=== PATIENT | female | born 1950 | race Caucasian/White ===

== ENCOUNTER 2019-10-29 21:19 | Inpatient (IN) | payer MEDICARE, OTHER, SELFPAY ==
--- NOTE | 2019-10-29 21:05 | HP.PCM_ITS ---
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 The patient denies chest pain or shortness of breath at present time and states she was not exerting herself more than usual the last couple days. Onset of dizziness began yesterday and has progressed since. Initial blood pressure in the emergency room at outside hospital was 190/120 with a heart rate of 111 however, her initial laboratory results were unremarkable including a negative troponin. EKG was performed and reported to me as ischemic changes that were new from previous EKG. She was therefore transported to our facility with the request for evaluation for a heart catheterization. Past Medical History Past Medical History (Chronic Problems): Chronic Problems Hypertension (Chronic) Diabetes (Chronic) CAD (coronary artery disease) (Chronic) Allergies amoxicillin [Amoxicillin] Allergy (Verified 01/27/16 14:41) Hives Beta-Blockers (Beta-Adrenergic Bloc Allergy (Verified 01/27/16 14:41) STOPS MY HEART ciprofloxacin Allergy (Verified 01/27/16 14:41) Hives clarithromycin [From Biaxin] Allergy (Verified 01/27/16 14:41) Hives metformin HCl [From Glucophage] Allergy (Verified 01/27/16 14:41) Anaphylaxis Penicillins Allergy (Verified 01/27/16 14:41) Hives vancomycin Allergy (Verified 01/27/16 14:41) Hives Home Medications: Ambulatory Orders Medication Instructions Recorded Gabapentin [Neurontin] 200 mg PO TIDCM 11/02/13 Hydrocodone Bitart/Apap 5-325 1 tablet PO Q6H PRN PRN 11/02/13 [[place] 5MG-325MG] Isosorbide Mononitrate [Isosorbide 30 mg PO DAILY 11/02/13 Mononitrate ER] Lisinopril [Zestril] 20 mg PO BID 11/02/13 Losartan Potassium [Cozaar] 100 mg PO DAILY 11/02/13 Pravastatin [Pravachol] 40 mg PO DAILY 11/02/13 Quetiapine Fumarate [Seroquel XR] 600 mg PO QHS 11/02/13 Baclofen 10 mg PO PRN PRN 12/03/15 Fluoxetine [Prozac] 60 mg PO DAILY 12/03/15 Insulin Aspart [Novolog Flexpen 8 units SC DINNER 12/03/15 ([facility])] Insulin Aspart [Novolog Flexpen 10 units SC BREAKFAST 12/03/15 ([facility])] Insulin Aspart [Novolog Flexpen 10 units SC LUNCH 12/03/15 ([facility])] Insulin Degludec [Tresiba 36 unit SQ QHS 12/03/15 Flextouch U-100] Oxybutynin Chloride [Ditropan Xl] 10 mg PO DAILY 12/03/15 Rizatriptan Benzoate [Maxalt] 10 mg PO .X1 PRN 12/03/15 Sotalol HCl [Betapace AF (Beta 80 mg PO QHS 12/03/15 [place])] Cephalexin [Keflex] 500 mg PO Q8 #9 capsule 01/30/16 Smoking Status: Former smoker - *Family History Maternal History Items: No pertinent history Review of Systems Constitutional: Reports: Weakness, Fatigue. Denies: Chills, Fever, Weight Change HEENT: Denies: Head Aches, Sinus Congestion, Sinus Drainage Cardiovascular: Denies: Chest Pain, Palpitations Respiratory: Denies: Cough, Shortness of breath at rest, Sputum production Gastrointestinal: Reports: Nausea. Denies: Abdominal Pain, Vomiting Genitourinary: Denies: Dysuria Musculoskeletal: Denies: Joint Pain, Joint Tenderness Skin: Denies: Rash, Wounds Neurological: Denies: Numbness, Tingling, Focal weakness Psychiatric: Denies: Anxiety, Depression, Homicidal Ideations, Suicidal Ideations Hematologic/ Lymphatic: Denies: Easy Bruising, Easy Bleeding VTE Information - Inpt Only VTE Present on Admission: No VTE Mechan Device Prophylaxis: None VTE Pharm Prophylaxis ordered?: Yes Patient Problems: Active and Suspected Problems Acute electrocardiogram changes (Acute) - Physical Exam Vitals/I&O's: Finger Stick Blood Glucose 297 General: Alert, Oriented x3, Cooperative HEENT: Atraumatic, Normocephalic Neck: Supple Lungs: Clear to auscultation, Normal air movement, No rhonchi, No wheeze, No rales Cardiovascular: Regular rate, Normal S1, Normal S2, No murmurs Abdomen: Bowel Sounds Present, Soft, Non Tender Extremities: No edema Skin: No rashes Musculoskeletal: No Tenderness to Palpation of Joints or Extremities Neurological: Cranial nerves II-XII grossly intact, Neuro grossly intact Psych/Mental Status: Normal Affect, Appropriate Assessment/Plan All Active Problems Acute electrocardiogram changes (Acute) History of breast cancer (Resolved) Chronic Problems Hypertension (Chronic) Diabetes (Chronic) CAD (coronary artery disease) (Chronic) Plan 1. Generalized weakness/dizziness/nausea?admit patient to progressive care unit, cycle cardiac markers, consult mixing tank operator due to EKG changes we will start regular cardiac diet for now pending decision by cardiology regarding stress test versus heart catheterization. Will focus on blood pressure management for the time being. we will repeat CBC BMP, coag panel, FLP in a.m. we will order Zofran PRN for nausea as well. 2. EKG changes?I have requested for nurse to obtain copies of previous EKGs for comparison 3. Diabetes?we will cover with sliding scale insulin, obtain A1c to assess diabetic control 4. Hypertension?we will place patient with hydralazine 10 mg IV every 6 hours as needed BP greater than 160/100 to cover as needed need and continue p.o. medications per routine until changed to n.p.o. status. 5. DVT prophylaxis?low molecular weight heparin OBSV E&M: 25834 Initial observation care L2
[2019-10-29 21:06] VITALS: BMI 36.1
[2019-10-29 21:10] VITALS: BP 190/107; PULSE 107; RESP 16; TEMP 36.4; O2SAT 95
--- NOTE | 2019-10-29 21:24 | ECHOD_ITS ---
Reason For Study: S/P DC Procedure This was a 2D Doppler, Color Flow transthoracic echocardiogram. The study was technically difficult. Exam performed portable in patient room. Left Ventricle Normal LV size. Moderate concentric left ventricular hypertrophy. The estimated ejection fraction is 65 %. Left ventricular systolic function is normal. Stage 1 diastolic dysfunction. No regional wall motion abnormalities noted. Right Ventricle Normal RV size. Moderate hypertrophy of the right ventricle. Normal systolic function. Atria Normal left atrium. Normal right atrium. Mitral Valve Normal mitral valve. Tricuspid Valve Normal tricuspid valve. Mild tricuspid valve insufficiency. Pulmonary artery systolic pressure is 20 mmHg. Aortic Valve Trisinus/trileaflet aortic valve. Great Vessels Normal aortic root. The pulmonary artery is normal size. Normal inferior vena cava. Pericardium/Pleural Trivial pericardial effusion. Epicardial fat. MMode/2D Measurements & Calculations LVIDd: 3.9 cm IVSd: 1.5 cm Ao root diam: 3.6 cm LVIDs: 2.2 cm LVPWd: 1.3 cm RVDd: 3.1 cm FS: 43.2 % LAV(MOD-bp): 73.9 ml LVAd ap4: 21.6 cm2 SV(MOD-sp4): 33.4 ml LAV(MOD-bp) Indexed: 34.1 ml/m2 EDV(MOD-sp4): 56.7 ml LAV(MOD-sp2): 87.1 ml EDV(sp4-el): 54.5 ml LAV(MOD-sp4): 60.5 ml LVAs ap4: 11.8 cm2 ESV(MOD-sp4): 23.3 ml ESV(sp4-el): 20.3 ml EF(MOD-sp4): 58.9 % EF(sp4-el): 62.8 % SV(sp4-el): 34.2 ml LA dimension(2D): 4.0 cm LA A4 area: 21.0 cm2 RA A4 area: 16.7 cm2 Time Measurements MV dec time: 0.13 sec Doppler Measurements & Calculations MV E max manoj: 117.1 cm/sec Ao V2 max: 119.3 cm/sec LV V1 max: 103.5 cm/sec Ao max P.7 mmHg LV V1 max P.3 mmHg PA V2 max: 100.0 cm/sec TR max manoj: 205.9 cm/sec TR max P.0 mmHg Interpretation Summary Normal LV size. Moderate concentric left ventricular hypertrophy. The estimated ejection fraction is 65 %. Left ventricular systolic function is normal. Stage 1 diastolic dysfunction. Trivial pericardial effusion. Epicardial fat. Ordering Physician: Lincoln Cline Performed By: Trina Soto, THONG, RVT
--- NOTE | 2019-10-29 21:26 | CON.PCM_ITS ---
Reason for Consult Date of Consultation: 10/29/19 Reason for Consultation: Headache, dizziness and high blood pressure History of Present Illness: The patient is a 69 year old F with a past medical history significant for coronary artery disease, diabetes mellitus, hypertension who presented to the emergency room at an outside hospital with chief complaint of dizziness headache and generalized weakness as well as nausea. She previously follows up with Lenore Fox for her cardiac care. She apparently had a non-ST elevation myocardial infarction over 3 years ago and medical therapy was recommended. She has done well in the interim. She has been compliant with her medications. She denies any fever diaphoresis neck arm or jaw discomfort to suggest angina. At the outside hospital her blood pressure was noted to be approximately 190/120 with a heart rate of 111 and a right bundle branch block. A troponin was done which was negative. A previous EKG from September of this year demonstrated a right bundle branch block. She was transferred here ostensibly to have further ca rdiac work-up. At this particular time she is completely asymptomatic. [] Past Medical History Allergies/Adverse Reactions: Allergies amoxicillin [Amoxicillin] Allergy (Verified 01/27/16 14:41) Hives Beta-Blockers (Beta-Adrenergic Bloc Allergy (Verified 01/27/16 14:41) STOPS MY HEART ciprofloxacin Allergy (Verified 01/27/16 14:41) Hives clarithromycin [From Biaxin] Allergy (Verified 01/27/16 14:41) Hives metformin HCl [From Glucophage] Allergy (Verified 01/27/16 14:41) Anaphylaxis Penicillins Allergy (Verified 01/27/16 14:41) Hives vancomycin Allergy (Verified 01/27/16 14:41) Hives Home Medications: Ambulatory Orders Medication Instructions Recorded Gabapentin [Neurontin] 200 mg PO TIDCM 11/02/13 Hydrocodone Bitart/Apap 5-325 1 tablet PO Q6H PRN PRN 11/02/13 [[place] 5MG-325MG] Isosorbide Mononitrate [Isosorbide 30 mg PO DAILY 11/02/13 Mononitrate ER] Lisinopril [Zestril] 20 mg PO BID 11/02/13 Losartan Potassium [Cozaar] 100 mg PO DAILY 11/02/13 Pravastatin [Pravachol] 40 mg PO DAILY 11/02/13 Quetiapine Fumarate [Seroquel XR] 600 mg PO QHS 11/02/13 Baclofen 10 mg PO PRN PRN 12/03/15 Fluoxetine [Prozac] 60 mg PO DAILY 12/03/15 Insulin Aspart [Novolog Flexpen 8 units SC DINNER 12/03/15 ([facility])] Insulin Aspart [Novolog Flexpen 10 units SC BREAKFAST 12/03/15 ([facility])] Insulin Aspart [Novolog Flexpen 10 units SC LUNCH 12/03/15 ([facility])] Insulin Degludec [Tresiba 36 unit SQ QHS 12/03/15 Flextouch U-100] Oxybutynin Chloride [Ditropan Xl] 10 mg PO DAILY 12/03/15 Rizatriptan Benzoate [Maxalt] 10 mg PO .X1 PRN 12/03/15 Sotalol HCl [Betapace AF (Beta 80 mg PO QHS 12/03/15 [place])] Cephalexin [Keflex] 500 mg PO Q8 #9 capsule 01/30/16 Past Medical History (Chronic Problems): Chronic Problems Hypertension (Chronic) Diabetes (Chronic) CAD (coronary artery disease) (Chronic) Surgical History: mastectomy - *Family History Maternal History Items: No pertinent history Smoking Status: Former smoker Alcohol: None Drugs: None Review of Systems - Review of Systems General: Denies: Fever, Night Sweats, Fatigue HEENT: Denies: Vision Change Cardiovascular: Reports: Dizziness. Denies: Chest Discomfort, Shortness of Breath, Orthopnea, PND, Peripheral Edema, Palpitations, Lightheadedness, Near Syncope, Syncope Respiratory: Denies: Cough, Sputum Production, Hemoptysis Gastrointestinal: Reports: Nausea. Denies: Hematemesis, Hematochezia, Melena Genitourinary: Denies: Dysuria, Hematuria Muscoloskeletal: Denies: Myalgias Skin: Denies: Rash Neurological: Reports: Dizziness Psychiatric: Denies: Anxiety Subjectve: Pleasant lady in no distress Objective: Vital Signs Temp Pulse Resp BP Pulse Ox 97.5 F L 107 H 16 190/107 H 95 10/29/19 21:10 10/29/19 21:10 10/29/19 21:10 10/29/19 21:10 10/29/19 21:10 Oxygen Delivery Method Room Air Weight: 234 lb 2.095 oz Body Mass Index (BMI) 36.1 Finger Stick Blood Glucose 297 General: Awake, Alert, Oriented x 3 HEENT: PERRL, EOMI, Sclera Non Icteric Neck: Supple, Good ROM, No Lymph Node Enlargement Lungs: Clear to auscultation Cardiovascular: Regular Rhythm, Normal S1, Normal S2, No Murmurs, No Rubs, No Gallops Vascular: No Carotid Bruits, Normal Femoral Pulses, Normal Radial Pulses, Normal Dorsalis Pedal Pulse, Normal Posterior Tibial Pulses Abdomen: Bowel Sounds Present, Soft, Non Tender, No HSM, No Organomegaly Extremities: No Cyanosis, No Clubbing, No edema Musculoskeletal: No Erythema Skin: No Rashes Neurological: No Focal Motor or Sensory Deficit Psych/Mental Status: Appropriate Rhythm: EKG: Sinus rhythm with a right bundle branch block ECHO: Stress Test: Cardiac Cath: PCI: CT Surgery: Holter monitor: EPS: PPM: CXR: Chest CT Scan: Assessment/Plan 1. Severe hypertension * The etiology of her severe hypertension is not entirely clear at this particular time. My recommendation is to resume her medications * Continue lisinopril * Discontinue losartan * Add amlodipine 10 mg a day * Obtain echocardiogram to assess her ventricular function * Depending on the findings further recommendations will be made * 2. Coronary artery disease * Her most recent troponin level was noted to be normal. Would follow serial troponin levels * Continue aspirin * Continue statin * 3. Conduction system disorder * Patient appears to have a history of paroxysmal atrial fibrillation but not anticoagulated * Patient is on once a day sotalol * Apparently has intolerance to other beta-blockers. * She has an underlying right bundle branch block and will continue to observe this. * * Thank you for allowing me to participate in the care of your patient. Please don't hesitate to call if any issues arise.
--- NOTE | 2019-10-29 21:32 | EKG12_ITS ---
Test Reason : CP ADMIT Blood Pressure : / mmHG Vent. Rate : 106 BPM Atrial Rate : 106 BPM P-R Int : 224 ms QRS Dur : 132 ms QT Int : 380 ms P-R-T Axes : 090 024 -03 degrees QTc Int : 504 ms Sinus tachycardia with 1st degree A-V block Right bundle branch block Abnormal ECG When compared with ECG of 04-JAN-2003 08:36, CA interval has increased Vent. rate has increased BY 47 BPM Right bundle branch block is now Present Confirmed by MARIA VICTORIA GLASS ([id number]), art editor DELONTE MOORE ([id number]) on 11/02/2019 10:34:54 AM Referred By: DR CARRILLO Confirmed By:MARIA VICTORIA GLASS
[2019-10-29 21:36] VITALS: PULSE 107
[2019-10-29] MEDS: amLODIPine 5 MG Tablet PO (21:53)
[2019-10-29 22:11] LABS: Bedside Glucose 168 mg/dL (70-110)
[2019-10-29 22:45] VITALS: BP 170/92; PULSE 108; RESP 16; TEMP 36.7; O2SAT 95
[2019-10-29 22:50] VITALS: O2SAT 95
[2019-10-29 23:34] VITALS: BP 183/94; PULSE 106
[2019-10-29] MEDS: hydrALAZINE 20 MG/ML Vial 10 MG IV (23:34)
[2019-10-29] MEDS: Acetaminophen 325 MG Tablet 650 MG PO (23:35)
[2019-10-29] MEDS: 0.9% Saline Lock 10 ML Syringe IV (23:35)
[2019-10-30] VITALS (10 sets, daily range): BP systolic 133–178; BP diastolic 62–90; PULSE 55–122; RESP 16–18; TEMP 36.6–37.1; O2SAT 96–100
[2019-10-30 03:57] LABS: Absolute Lymphocyte Count 2.01 X10^3/uL (0.83-4.51); Absolute Neutrophil Count 2.2 X10^3/uL (2.0-7.7); Basophil# 0.08 X10^3/uL; Basophil% 1.5 % (0-1); Eosinophil# 0.38 X10^3/uL; Eosinophils% 7.4 % (0-5); Hemoglobin 14.4 g/dL (12.0-15.0); Lymphocyte # 2.01 X10^3/ul (4.0); Lymphocyte % 38.9 % (19-41); Mean Corp Hgb Conc 32.7 g/dL (32-36); Mean Corpuscular Hgb 28.7 pg (27.0-32.0); Mean Corpuscular Volume 87.6 fL (81-99); Monocyte# 0.48 X10^3/uL; Monocyte% 9.3 % (0-10); NRBC Flagged by Analyzer 0 % (0-5); Neutrophil # 2.21 X10^3/uL (2.7-7.7); Neutrophil % 42.7 % (47-70); Platelet Count 156 K/mm3 (150-450); RBC Distribution Width CV 13.2 % (11.6-14.6); RBC Distribution Width SD 42.1 fl (35.1-43.9); Red Blood Count 5.02 M/mm3 (4.2-5.4); White Blood Count 5.2 K/mm3 (4.4-11.0)
[2019-10-30 05:09] LABS: ALB/GLOB Ratio 0.7 RATIO (0.9-2.4); AST(SGOT) 20 U/L (15-37); Alanine Aminotransfer ALT/SGPT 25 U/L (13-56); Albumin, Serum 3.1 g/dL (3.2-5.0); Alkaline Phosphatase 62 U/L (45-117); Anion Gap 7 (5-15); BUN 11 mg/dL (7-18); BUN/Creat Ratio 11.2 RATIO (10-20); Calcium,Total 8.2 mg/dL (8.5-10.1); Chloride 103 mmol/L (98-107); Cholesterol 224 mg/dL (200); Creatinine, Serum 0.98 mg/dL (0.55-1.02); EST Glomerular Filtration Rate 59 mL/min (>60); Est Glom Filt Rate - Afr Amer 72 mL/min (>60); Estimated Creatinine Clearance 51.94 ml/min; Globulin 4.2 g/dL (2.2-4.2); Glucose 148 mg/dL (74-106); High Density Lipoprotein 45 mg/dL; Potassium 3.6 mmol/L (3.5-5.1); Protein, Total 7.3 g/dL (6.4-8.2); Sodium Level 138 mmol/L (136-145); Triglycerides 125 mg/dL; Very Low Density Lipoprotein 25 mg/dL (5-40)
[2019-10-30 06:31] LABS: Bedside Glucose 169 mg/dL (70-110)
--- NOTE | 2019-10-30 08:01 | PN.CARD_ITS ---
Subjectve: Patient seen and evaluated. Appears to be doing well. Objective: Vital Signs Temp Pulse Resp BP Pulse Ox 98 F 61 18 154/62 H 98 10/30/19 04:30 10/30/19 07:00 10/30/19 04:30 10/30/19 04:30 10/30/19 07:15 Oxygen Flow Rate (L/min) 2 Oxygen Delivery Method Nasal Cannula Weight: 234 lb 2.095 oz Body Mass Index (BMI) 36.1 Finger Stick Blood Glucose 297 Intake and Output for Last 24 Hours 10/28/19 10/29/19 10/30/19 23:59 23:59 23:59 Intake Total 100 / 100 Balance 100 / 100 General: Awake, Alert, Oriented x 3 HEENT: PERRL, EOMI, Sclera Non Icteric Neck: Supple, Good ROM, No Lymph Node Enlargement Lungs: Clear to auscultation Cardiovascular: Regular Rhythm, Normal S1, Normal S2, No Murmurs, No Rubs, No Gallops Vascular: No Carotid Bruits, Normal Femoral Pulses, Normal Radial Pulses, Normal Dorsalis Pedal Pulse, Normal Posterior Tibial Pulses Abdomen: Bowel Sounds Present, Soft, Non Tender, No HSM, No Organomegaly Extremities: No Cyanosis, No Clubbing, No edema Musculoskeletal: No Erythema Skin: No Rashes Lymphatic: No Lymph Node Enlargement Neurological: No Focal Motor or Sensory Deficit Psych/Mental Status: Appropriate 10/29/19 22:02: Troponin I < 0.015 10/30/19 01:00: Troponin I < 0.015 10/30/19 03:40: WBC 5.2, RBC 5.02, Hgb 14.4, Hct 44.0, MCV 87.6, MCH 28.7, MCHC 32.7, Plt Count 156, MPV 11.0, Immature Gran % (Auto) 0.200, Neut % (Auto) 42.7 L, Lymph % (Auto) 38.9, Hendricks % (Auto) 9.3, Eos % (Auto) 7.4 H, Baso % (Auto) 1.5 H, Absolute Neuts (auto) 2.2, Nucleated RBC % 0 10/30/19 03:40: PT 13.0, INR 1.0 10/30/19 03:40: Sodium 138, Potassium 3.6, Chloride 103, Carbon Dioxide 28.0, Anion Gap 7, BUN 11, Creatinine 0.98, Est GFR (MDRD) Af Amer 72, Est GFR (MDRD) Non-Af 59 L, BUN/Creatinine Ratio 11.2, Glucose 148 H, Calcium 8.2 L, Total Bilirubin 0.60, Triglycerides 125, Cholesterol 224 H, LDL Cholesterol 154 H, VLDL Cholesterol 25, HDL Cholesterol 45 10/30/19 03:40: Troponin I < 0.015 Rhythm: EKG: ECHO: Stress Test: Cardiac Cath: PCI: CT Surgery: Holter monitor: EPS: PPM: CXR: Chest CT Scan: Medical Necessity - Tobacco Use Smoking Status: Former smoker Assessment/Plan 1. Severe hypertension * The etiology of her severe hypertension is not entirely clear at this particular time. My recommendation is to resume her medications * Continue lisinopril * Discontinue losartan * Add amlodipine 10 mg a day * Obtain echocardiogram to assess her ventricular function * Depending on the findings further recommendations will be made * 2. Coronary artery disease * Her most recent troponin level was noted to be normal. Would follow serial troponin levels * Continue aspirin * Continue statin * 3. Conduction system disorder * Patient appears to have a history of paroxysmal atrial fibrillation but not anticoagulated * Patient is on once a day sotalol, and I am not sure why. Will DC the above for now * Apparently has intolerance to other beta-blockers. * She has an underlying right bundle branch block and will continue to observe this. * * Thank you for allowing me to participate in the care of your patient. Please don't hesitate to call if any issues arise.
[2019-10-30] MEDS: Aspirin E.C. 325 MG Tablet PO (09:34)
[2019-10-30] MEDS: amLODIPine 10 MG Tablet PO (09:34)
[2019-10-30] MEDS: Enoxaparin 40 MG/0.4 ML Syringe SC (09:34)
[2019-10-30] MEDS: Lisinopril 20 MG Tablet PO (09:37)
--- NOTE | 2019-10-30 10:44 | CASEMGMT ---
MICHAEL MILNER assessment: Face to Face with patient for initial transition planning/care coordination assessment. MICHAEL MILNER introduced self and role at [facility], pt voices understanding and consents to assessment at this time. Pt is sitting up in bed in no distress at this time. Pt is A/Ox4 at this time and answers all questions appropriately at this time. Care providers, pharmacy, and demographics verified at this time. Presentation: Direct admit from [facility]ock for Hypertensive urgency, EKG changes Admitting dx: Hypertensive urgency, EKG changes PCP: Loyda Specialists: Xochilt King radiographer mammographer [facility]erred [facility]acy: [facility] Insurance: [facility] A/B, AeR Prescription Benefit: SilverRx Living Will/HPOA: Pt states that her daughter, Marylou Huerta, is POA but she is unsure if it's for financial, healthcare, or both. Pt is aware that there is nothing on file at [facility] at this time. LNOK: Marylou Huerta, daughter Living Arrangements: Pt states lives alone on main level of 2 story home and states no concerns at home at this time. Pt states is independent with ADL's. Transportation: Pt states drives self and states no transportation concerns at this time. DME/HHC: Pt states has a cane, walker, and 2 liters home oxygen at bedtime. Pt states no need for any further DME. Pt states no hx of HHC or SNF in the past. Pt states no concerns with going home at time of discharge. Pt states is retired. Pt states quit smoking 6.5yrs ago and does not drink ETOH. Pt states no further concerns/needs at this time. CM to follow for any further discharge planning/needs. Advised pt to ask for CM if any further questions/concerns/needs arise, voices understanding. Pt Goal: Home Plan[place] MICHAEL MILNER
--- NOTE | 2019-10-30 10:44 | NURSING ---
Spoke with patient's pharmacy[facility] [place]. Pharmacy did not have complete list of medications. Call placed and left on patient's PCP, Dr. Scales, nurse line for a call back.
[2019-10-30 11:46] LABS: Bedside Glucose 273 mg/dL (70-110)
[2019-10-30] MEDS: 0.9% Saline Lock 10 ML Syringe IV ×2 (11:52→12:57)
[2019-10-30] MEDS: Ondansetron 4 MG/2 ML Vial IV (11:52)
[2019-10-30] MEDS: Insulin Lispro 100 UNIT/ML INSULN.PEN SC ×2 (12:52→17:58)
[2019-10-30] MEDS: Acetaminophen 325 MG Tablet 650 MG PO (12:52)
[2019-10-30] MEDS: hydrALAZINE 20 MG/ML Vial 10 MG IV (12:54)
--- NOTE | 2019-10-30 16:45 | DCINST_ITS ---
- Discharge Diagnoses Current Active Problems: Current Active and Chronic Problems Hypertension (Chronic) Diabetes (Chronic) CAD (coronary artery disease) (Chronic) Acute electrocardiogram changes (Acute) You will use the following diet at home:: Calorie/Carbohydrate Controlled (specify 1200, 1400, etc) - 1800 davey Your food should be the consistency of: Regular Your liquids should be the consistency of: Regular/Thin Discharge Activity: Return to Normal Activity Weight Bearing Status: Full weight bearing Additional Instructions: TAKE A 20 MG DOSE OF LISINOPRIL TONITE, THEN START ON LISINOPRIL 40 MG DAILY (ONCE A DAY) ON 10/31/19 Allergies/Adverse Reactions: Allergies amoxicillin [Amoxicillin] Allergy (Verified 01/27/16 14:41) Hives Beta-Blockers (Beta-Adrenergic Bloc Allergy (Verified 01/27/16 14:41) STOPS MY HEART ciprofloxacin Allergy (Verified 01/27/16 14:41) Hives clarithromycin [From Biaxin] Allergy (Verified 01/27/16 14:41) Hives metformin HCl [From Glucophage] Allergy (Verified 01/27/16 14:41) Anaphylaxis Penicillins Allergy (Verified 01/27/16 14:41) Hives vancomycin Allergy (Verified 01/27/16 14:41) Hives Medications to take at Discharge Hydrocodone Bitart/Apap 5-325 [[place] 5/325] 1 tablet PO TID PRN PRN 11/02/13 Pravastatin [Pravachol] 80 mg PO DAILY 11/02/13 Amlodipine [Norvasc] 10 mg PO DAILY #30 tab 10/30/19 Aspirin [Aspirin EC] 81 mg PO DAILY #1 tablet. 10/30/19 Fluoxetine [Prozac] 60 mg PO DAILY #1 capsule 10/30/19 Insulin Human 70/30 [Novolog Mix 70-30 Flexpen Syrn] 40 units SUBCUT DAILYCM 10/30/19 Lisinopril [Zestril] 40 mg PO DAILY #1 tablet 10/30/19 Lisinopril [Zestril] 40 mg PO DAILY #1 tablet 10/30/19 Loperamide [Imodium] 2 mg PO Q4H PRN PRN 10/30/19 Meloxicam 7.5 mg PO DAILY PRN 10/30/19 Turmeric/Turmeric Root Extract [Turmeric 500 mg Capsule] 500 mg PO DAILY 10/30/19 The following prescriptions were given: Aspirin [Aspirin EC] 81 mg PO DAILY #1 tablet. Amlodipine [Norvasc] 10 mg PO DAILY #30 tab Transmission Status: Pending to [id number] Fluoxetine [Prozac] 60 mg PO DAILY #1 capsule Lisinopril [Zestril] 40 mg PO DAILY #1 tablet Lisinopril [Zestril] 40 mg PO DAILY #1 tablet Primary Care Physician: Arnold Scales DO [Primary Care Provider] - Please follow up with your Primary Care Physician in: 5-7 days Test Results: Test results from this visit will be discussed in further detail at your follow- up appointment, if applicable. Please Follow Up With: your electrical mechanical technician When: in 2 weeks
[2019-10-30 18:06] LABS: Bedside Glucose 201 mg/dL (70-110)
--- NOTE | 2019-10-30 18:36 | PCM.DC.SUM ---
Discharge Date and Diagnosis - Problem List Patient Problems: Active and Suspected Problems Acute electrocardiogram changes (Acute) Date of Admission: 10/29/19 Date of Discharge: 10/30/19 - Primary Discharge Diagnosis Acute Problems: Active Problems #1 hypertensive urgency #2 coronary artery disease #3 hyperlipidemia #4 generalized weakness-etiology unclear #5 type 2 diabetes - Secondary Discharge Diagnosis Chronic Problems: Chronic Problems Hypertension (Chronic) Diabetes (Chronic) CAD (coronary artery disease) (Chronic) Hospital Course and Treatment Operations: None Procedures: 2-D Echocardiogram Summary of Care Provided: The patient is a 69 year old F who was admitted to PCU at [facility] after being evaluated at an outside hospital for complaints of weakness and dizziness. Work-up at the outside hospital revealed the patient's blood pressure to be elevated and the outside hospital requested the patient be transferred here for direct admission. There is also concerns of EKG changes. Patient was directly admitted to PCU, she was placed on medications for blood pressure control and she was seen in consultation by cardiology. Per cardiology did not feel the patient warranted a cardiac work-up and did several medication adjustments concerning the patient's home medications. Patient's blood pressure responded to change in her medications. It was not felt that the patient had any significant EKG changes. On 10/30/2019, patient was seen and examined: On examination she appeared in good health and spirits, she does not appear to be in any distress. Vital signs as documented. Skin warm and dry and without overt rashes. Neck without JVD, thyroid appears normal, trachea is midline, neck is supple. Lungs clear, normal air movement was noted. Heart exam notable for regular rhythm, normal sounds and absence of murmurs, rubs or gallops. Abdomen unremarkable and without evidence of organomegaly, masses, or abdominal aortic enlargement, bowel sounds are present in all 4 quadrants, no abdominal tenderness was noted. Extremities nonedematous, no cyanosis was noted, no clubbing was noted. Neuro: Cranial nerves II through XII are grossly intact, no focal motor deficits were noted, sensation to light touch and pinprick is intact, motor exam 5/5 throughout. Psych: Patient is alert and oriented x3, she does not appear anxious or depressed, she does not appear agitated. Patient was felt to be stable for discharge home on 10/30/2019, I had a discussion with the patient's daughter and the patient's daughter was concerned that the patient was on multiple medications and was not taking them correctly, I reviewed the patient's medications prior to discharge and took the patient off several of her medications which would cause sedation and unsteadiness at home. 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 Patient Problems: Active and Suspected Problems Acute electrocardiogram changes (Acute) - Physical Exam Vitals/I&O's: Vital Signs Temp Pulse Resp BP Pulse Ox 97.8 F 87 18 140/73 H 98 10/30/19 15:30 10/30/19 15:30 10/30/19 15:30 10/30/19 15:30 10/30/19 15:30 Oxygen Flow Rate (L/min) 2 Oxygen Delivery Method Room Air Weight: 106.2 kg Body Mass Index (BMI) 36.1 Finger Stick Blood Glucose 297 Intake and Output for Last 24 Hours 10/28/19 10/29/19 10/30/19 23:59 23:59 23:59 Intake Total 100 / 100 360 / 360 Balance 100 / 100 360 / 360 Laboratory Results 10/29/19 21:30: POC Glucose 168 H 10/29/19 22:02: Troponin I < 0.015 10/30/19 01:00: Troponin I < 0.015 10/30/19 03:40: WBC 5.2, RBC 5.02, Hgb 14.4, Hct 44.0, MCV 87.6, MCH 28.7, MCHC 32.7, RDW Std Deviation 42.1, RDW Coeff of Gabbie 13.2, Plt Count 156, MPV 11.0, Immature Gran % (Auto) 0.200, Neut % (Auto) 42.7 L, Lymph % (Auto) 38.9, Hardy % (Auto) 9.3, Eos % (Auto) 7.4 H, Baso % (Auto) 1.5 H, Absolute Neuts (auto) 2.2, Absolute Lymphs (auto) 2.01, Nucleated RBC % 0 10/30/19 03:40: PT 13.0, INR 1.0 10/30/19 03:40: Sodium 138, Potassium 3.6, Chloride 103, Carbon Dioxide 28.0, Anion Gap 7, BUN 11, Creatinine 0.98, Estim Creat Clear Calc 51.94, Est GFR (MDRD) Af Amer 72, Est GFR (MDRD) Non-Af 59 L, BUN/Creatinine Ratio 11.2, Glucose 148 H, Calcium 8.2 L, Total Bilirubin 0.60, AST 20, ALT 25, Alkaline Phosphatase 62, Total Protein 7.3, Albumin 3.1 L, Globulin 4.2, Albumin/Globulin Ratio 0.7 L, Triglycerides 125, Cholesterol 224 H, LDL Cholesterol 154 H, VLDL Cholesterol 25, HDL Cholesterol 45 10/30/19 03:40: Troponin I < 0.015 10/30/19 06:20: POC Glucose 169 H 10/30/19 10:55: POC Glucose 273 H 10/30/19 17:57: POC Glucose 201 H Current Medications Acetaminophen (Tylenol) 650 mg PO Q6H PRN PRN PRN Reason: Pain (1-10) or Fever Last Admin: 10/30/19 12:52 Dose: 650 mg Documented by: Amlodipine Besylate (Norvasc) 10 mg PO DAILY [facility] Last Admin: 10/30/19 09:34 Dose: 10 mg Documented by: Aspirin (Ecotrin) 325 mg PO DAILY@0800 [facility] Last Admin: 10/30/19 09:34 Dose: 325 mg Documented by: Atorvastatin Calcium (Lipitor) 40 mg PO QHS [facility] Dextrose (D50w Syringe) 0 gm IV X1 PRN; Protocol PRN Reason: Hypoglycemia Enoxaparin Sodium (Lovenox) 40 mg SC DAILY [facility] Last Admin: 10/30/19 09:34 Dose: 40 mg Documented by: Glucagon () 1 mg IM .X1 PRN PRN Reason: Hypoglycemia Hydralazine HCl (Apresoline Iv) 10 mg IV Q6H PRN PRN PRN Reason: Hypertensive Emergency Last Admin: 10/30/19 12:54 Dose: 10 mg Documented by: Sodium Chloride () 250 mls @ 15 mls/hr IV .[id number] PRN PRN Reason: Saline Flush Sodium Chloride () 250 mls @ 15 mls/hr IV .[id number] PRN PRN Reason: Additional IVPB Infusion Insulin Glargine (Lantus (Bkc)) 30 units SC QHS [facility] Last Admin: 10/29/19 21:52 Dose: Not Given Documented by: Insulin Human Lispro (Humalog Kwikpen (Bkc)) 0 unit SC ACHS [facility]; Protocol Last Admin: 10/30/19 17:58 Dose: 2 units Documented by: Lisinopril (Zestril) 20 mg PO BID [facility] Last Admin: 10/30/19 09:37 Dose: 20 mg Documented by: Nutritional Formula (Lactose Free) (Glucerna Shake) 120 ml PO 4X/DAY [facility] Last Admin: 10/30/19 14:38 Dose: Not Given Documented by: Ondansetron HCl (Zofran) 4 mg IV Q8H PRN PRN PRN Reason: NAUSEA/VOMITING Last Admin: 10/30/19 11:52 Dose: 4 mg Documented by: Sodium Chloride () 10 - 40 ml IV UD PRN PRN Reason: SALINE FLUSH Last Admin: 10/30/19 12:57 Dose: 10 ml Documented by: Discharge Activity: Return to Normal Activity Weight Bearing Status: Full weight bearing Home Medications: Medications to take at Discharge Hydrocodone Bitart/Apap 5-325 [[place] 5/325] 1 tablet PO TID PRN PRN 11/02/13 Pravastatin [Pravachol] 80 mg PO DAILY 11/02/13 Amlodipine [Norvasc] 10 mg PO DAILY #30 tab 10/30/19 Aspirin [Aspirin EC] 81 mg PO DAILY #1 tablet. 10/30/19 Fluoxetine [Prozac] 60 mg PO DAILY #1 cap 10/30/19 Insulin Human 70/30 [Novolog Mix 70-30 Flexpen Syrn] 40 units SUBCUT DAILYCM 10/30/19 Lisinopril [Zestril] 40 mg PO DAILY #1 tab 10/30/19 Lisinopril [Zestril] 40 mg PO DAILY #1 tab 10/30/19 Loperamide [Imodium] 2 mg PO Q4H PRN PRN 10/30/19 Meloxicam 7.5 mg PO DAILY PRN 10/30/19 Turmeric/Turmeric Root Extract [Turmeric 500 mg Capsule] 500 mg PO DAILY 10/30/19 Following Prescriptions Were Given to Patient: Aspirin [Aspirin EC] 81 mg PO DAILY #1 tablet. Amlodipine [Norvasc] 10 mg PO DAILY #30 tab Transmission Status: Received by [facility] [id number] Fluoxetine [Prozac] 60 mg PO DAILY #1 cap Lisinopril [Zestril] 40 mg PO DAILY #1 tab Lisinopril [Zestril] 40 mg PO DAILY #1 tab Primary Care Physician: Arnold Scales DO [Primary Care Provider] - Please follow up with your Primary Care Physician in: 5-7 days Please Follow Up With: your lamp shade joiner When: in 2 weeks Disposition: Home Minutes spent on discharge:: 31 Patient Condition:: Stable Medical Necessity - Tobacco Use Smoking Status: Former smoker Meaningful Use Info Meaningful Use Diagnoses (Choose all that apply): None applicable Inpatient E&M: 34255 Disch Hosp
== END 2019-10-30 18:34 | disposition home or self-care (01) | DRG 305 ==
PROVIDERS: Admitting Provider Family Medicine; PCP Preventive Medicine Occupational Medicine; Visit Provider Internal Medicine
DX: I16.0 Hypertensive urgency (principal); I25.10 Atherosclerotic heart disease of native coronary artery without angina pectoris; E78.5 Hyperlipidemia, unspecified; E11.9 Type 2 diabetes mellitus without complications; R53.1 Weakness; I45.10 Unspecified right bundle-branch block; I48.0 Paroxysmal atrial fibrillation; Z87.891 Personal history of nicotine dependence; Z79.4 Long term (current) use of insulin; Z85.3 Personal history of malignant neoplasm of breast; I25.2 Old myocardial infarction
CPT/HCPCS: 36415; 80053; 80061; 82962; 84484; 85025; 85610; 93005; 93306; 97802; 99406; Q9957; A4216; J2405

== ENCOUNTER → 2019-12-06 15:50 | Outpatient (CLI) | payer MEDICARE, OTHER, SELFPAY ==
[2019-10-29 21:06] VITALS: BMI 36.1
[2019-12-06 17:26] LABS: Mucous, Urine 0 SEEN /hpf (<or=2+)
[2019-12-06 19:16] LABS: Color, Urine Amber (Yellow); Glucose, Dipstick 1000 mg/dl (Normal); Ketone-Dipstick 5 mg/dl (Negative); Leukocyte Esterase-Dipstick 25 /ul (Negative); Nitrite-Dipstick Negative (Negative); Occult Blood-Urine 50 /ul (Negative); Protein-Dipstick 100 mg/dl (Negative); Urine Clarity Sl. Cloudy (Clear); Urine Urobilinogen 1 mg/dl (Normal)
[2019-12-06 19:18] LABS: Urine Bilirubin Dipstick 1 mg/dL (Negative)
[2019-12-06 19:30] LABS: White Blood Cells 0-5 SEEN /hpf (0-5)
[2019-12-06 19:31] LABS: Amorphous Sediment 2+ URATE; Bacteria RARE /hpf (None Seen); Red Blood Cells-Urine 0-5 SEEN /hpf (0-5); Squamous Epithelial Cells - UA 0-5 SEEN /hpf (5-10)
== END ==
PROVIDERS: PCP Preventive Medicine Occupational Medicine; Referring Provider Nurse Practitioner Adult Health; Visit Provider Nurse Practitioner Adult Health
DX: R31.9 Hematuria, unspecified (principal)
CPT/HCPCS: 81001; 87086; 87088

== ENCOUNTER → 2020-09-18 15:05 | Outpatient (CLI) | payer MEDICARE, OTHER, SELFPAY ==
[2019-10-29 21:06] VITALS: BMI 36.1
--- NOTE | 2020-09-18 | BON_PTH ---
PATIENT: JOHN PAUL RODRIGUEZ LOC: LO U#:[id number] AGE/SX: 74/F ROOM: RE09/18/[address]: Dr. Bobby Connell MD : [id number] BED: DIS: SPEC #: [id number] RECD: 09/18/20 14:49 STATUS: PARAMJIT JESSICAAquilino #: [id number] ALBERT: 09/18/20 00:[address]: Bobby Connell DEPT: SURGICAL PATHOLOGY RECD BY: Samy Coulter ENTERED: 09/19/20 09:09 SP TYPE: Bone OTHR DR: Dr. Arnold Scales, [facility] Tissues: Vertebra, NOS Procedures: Decalcification bone/plaque Surgery Specimen Level V HEADER OPERATION: Kyphoplasty L1 PRE-OP DIAGNOSIS: Closed fracture lumbar of vertebra TISSUE SUBMITTED: Body of L1 MICROSCOPIC DIAGNOSIS L1 fracture, bone core biopsy: Trilineage hematopoiesis. No evidence of malignancy. AM:jacqueline 09/23/2020 MICROSCOPIC DESCRIPTION Slides are reviewed. GROSS DESCRIPTION Received is one container labeled with the patient's name and not further designated. The specimen consists of an elongated piece of bone measuring 0.8 cm in length and 0.1 cm in diameter. The entire specimen is submitted in one cassette after decalcification. / SJ:jacqueline 09/19/20 TC:5 CPT: 21081, 55360
== END ==
PROVIDERS: PCP Preventive Medicine Occupational Medicine; Visit Provider Anesthesiology Pain Medicine
DX: S32.019A Unspecified fracture of first lumbar vertebra, initial encounter for closed fracture (principal)
CPT/HCPCS: 88305; 88307; 88311

== ENCOUNTER 2024-08-20 13:03 | Outpatient (RCR) | payer MEDICARE, SELFPAY ==
--- NOTE | 2024-08-20 13:30 | PCM.WC.HP ---
History of Present Illness Date of Service: 08/20/24 History of Wound: Cynthia Serrano is a delightful 74-year-old female with past medical history of type 2 diabetes (currently insulin-dependent) who presents as a referral to the wound care center for [] Patient is not a smoker. No personal or family history of bleeding or clotting problems. PFSH Home Medications ?Medication ?Instructions ?Recorded ?Last Taken ?Type hydrocodone-acetaminophen 5-325mg 1 tab PO TID PRN PRN Pain 11/02/13 Unknown History 5mg-325mg pravastatin 40 mg tablet 80 mg PO DAILY cholesterol 11/02/13 Unknown History amlodipine 10 mg tablet 10 mg PO DAILY #30 tabs 10/30/19 Unknown Rx aspirin 81 mg tablet,delayed 81 mg PO DAILY ##1 10/30/19 Unknown Rx release fluoxetine 20 mg capsule 60 mg (3 x 20 mg) PO DAILY mental 10/30/19 Unknown Rx health #1 cap insulin aspar prot-insulin aspart 40 units subcut DAILYCM diabetes 10/30/19 Unknown History 100 unit/mL (70-30) subcutaneous pen lisinopril 20 mg tablet 40 mg (2 x 20 mg) PO DAILY #1 TAB 10/30/19 Unknown Rx lisinopril 20 mg tablet 40 mg (2 x 20 mg) PO DAILY blood 10/30/19 Unknown Rx pressure #1 TAB loperamide 2 mg capsule 2 mg PO Q4H PRN PRN Loose Stools 10/30/19 Unknown History meloxicam 7.5 mg tablet 7.5 mg PO DAILY PRN pain 10/30/19 Unknown History turmeric 450 mg-turmeric root 500 mg PO DAILY supplement 10/30/19 Unknown History extract 50 mg capsule Allergy/AdvReac Type Severity Reaction Status Date / Time amoxicillin (Amoxicillin) Allergy Hives Verified 01/27/16 14:41 Beta-Blockers Allergy STOPS MY Verified 01/27/16 14:41 (Beta-Adrenergic Bloc HEART ciprofloxacin Allergy Hives Verified 01/27/16 14:41 clarithromycin (From Biaxin) Allergy Hives Verified 01/27/16 14:41 metformin HCl (From Allergy Anaphylaxis Verified 01/27/16 14:41 Glucophage) Penicillins Allergy Hives Verified 01/27/16 14:41 vancomycin Allergy Hives Verified 01/27/16 14:41 Social History Smoking Status: Former smoker
== END 2024-09-17 23:59 | disposition home or self-care (01) ==
LOC: WC 13:03
PROVIDERS: PCP Preventive Medicine Occupational Medicine; Referring Provider Preventive Medicine Occupational Medicine; Visit Provider Surgery Plastic and Reconstructive Surgery
DX: Z09 Encounter for follow-up examination after completed treatment for conditions other than malignant neoplasm (principal)

== ENCOUNTER 2024-10-24 00:52 | Emergency (ER) | payer MEDICARE, SELFPAY ==
[2024-10-24 00:55] VITALS: BP 208/83; PULSE 71; RESP 16; TEMP 36.6; O2SAT 98; BMI 38.1
--- NOTE | 2024-10-24 01:21 | CT_ITS ---
PROCEDURE: ABDOMEN/PELVIS W IV CONT ONLY 10/24/2024 REASON FOR EXAM: ? SBO TECHNIQUE: ABDOMEN/PELVIS W IV CONT ONLY Coronal and Sagittal reconstruction series were provided. One or more dose reduction techniques were used (e.g., Automated exposure control, adjustment of the mA and/or kV according to patient size, use of iterative reconstruction technique. RADIATION DOSE SUMMARY: CTDlvol: 33 mGy DLP: 1227 mGycm COMPARISON: No FINDINGS: Under aerated lung bases. Tiny pleural effusions. Cardiac enlargement. Small pericardial effusion. Status post cholecystectomy. No acute liver, pancreas, spleen, adrenal gland or kidney pathology. Mild left-sided renal atrophy. Multiple right renal stones measuring up to 5 mm. No hydronephrosis or ureteral stone. Unremarkable bladder. Status post hysterectomy. No retroperitoneal or pelvic adenopathy. No free air. Small hiatal hernia. Nondistended stomach and small bowels. The large bowel is mildly diffusely distended with large fluid. There is mild pericolic fat stranding. There is sigmoid region diverticulosis. There is rectosigmoid stool. Series 2, image 67, there is intraluminal contents versus of mural based mass measuring approximately 1 x 1.9 cm, consider colonoscopy. Lumbar spine degeneration. Abdominal wall edema. Status post L1 kyphoplasty. CT/Abdomen/Pelvis W IV Cont ONLY IMPRESSION: Diffuse colitis, correlate for infectious colitis or inflammatory bowel disease . Possible transverse colon mass. Consider colonoscopy. Reading Location: [place] [id number]
--- OUTSIDE RECORDS SUMMARY | 2024-10-24 01:31 | XMS RPT_ITS | CCD ---
Author Organization [facility] Inform ion Partnership [facility] Care Team Providers Care Marketing Team Lead Name Role Phone SAPNA WEST Unavailable Unavailable Unavailable Primary Care Provider UnavailBATSHEVA Blackman DO Primary Care Physician [id number] Attending Unavailable BATSHEVA FOX Primary Care Unavailable ENEDINA MOSHER Attending Unavailable ENEDINA MOSHER Primary Care Unavailable ENEDINA MOSHER Admitting Unavailable AUBREY HAMLIN MD Consulting Unavailable TIP COBB, JANICE Attending Unavailable ENIO COBB, DR FRAN Ash Admitting Unavailable BATSHEVA FOX DO Primary Care Unavailable ROSLYN CONCEPCION MD, DR RYAN KEENAN Consulting Unavailnora FAN MD, YADIEL Consulting Unavailable TOVA DUDLEY MD Consulting UnavailBATSHEVA Blackman DO Consulting Unavailable BANG COBB, DR SPENCE Consulting UnavailJOSE ANTONIO Dunbar MD Consulting Unavailable DAVID WICK MD Attending Unavailable MITA COBB, YADIEL Admitting Unavailable BATSHEVA FOX DO Primary Care Unavailable RADHA ALMARAZ MD Consulting UnavailCOURTNEY Smiley DO Consulting Unavail able ROSLYN CONCEPCION MD, DR RYAN KEENAN Consulting Unavaila BATSHEVA Hazel DO Primary Care Unavailable BATSHEVA FOX DO Attending Unavailable BATSHEVA FOX DO Attending Unavailable BATSHEVA FOX DO Primary Care Unavailable BATSHEVA FOX DO Primary Care Unavailable JOLANTA VARGAS MD Attending Unavailable BATSHEVA FOX DO Primary Care Unavailable GISELLE BURNETT DO Attending Unavailable CECILIO SNYDER Attending Unavailab BATSHEVA Le DO Primary Care Unavailable LAURNE ASHFORD APRN, CNP Attending U navailable BATSHEVA FOX DO Primary Care Unavailable AUBREY HAMLIN MD Attending Unavailable BATSHEVA FOX DO Primary Care Unavailable Dr. Batsheva Fox DO Primary Care Provider [phone] Dr. Batsheva Fox DO Referring Provider Dr. Batsheva Oviedo MD Attending Provider [phone] YONATHAN KUNZ MD Admitting Unavailable YONATHAN KUNZ MD Referring Unavailable YONATHAN KUNZ MD Attending Unavailable YONATHAN KUNZ MD Consulting Unavailable YONATHAN KUNZ MD Primary Care Unavailable PROVIDER, UNKNOWN Consulting Unavailable PROVIDER, UNKNOWN Consulting Unavailable BATSHEVA FOX DO Consulting Unavailable BATSHEVA FOX DO Referring Unavailable ROSE CORTEZ MD Primary Care Unavailable ROSE CORTEZ MD Admitting Unavailable ROSE CORTEZ MD Attending Unavailable PROVIDER, UNKNOWN Consulting Unavailable YONATHAN KUNZ MD Consulting Unavailable AUBREY HAMLIN MD Admitting Unavailable AUBREY HAMLIN MD Attending Unavailable AUBREY HAMLIN MD Primary Care Unavailable PROVIDER, UNKNOWN Consulting Unavailable PROVIDER, UNKNOWN Consulting Unavailable YONATHAN KUNZ MD Admitting Unavailable YONATHAN KUNZ MD Attending Unavailable YONATHAN KUNZ MD Primary Care Unavailable YONATHAN KUNZ MD Referring Unavailable YONATHAN KUNZ MD Consulting Unavailable ROSE CORTEZ MD Primary Care Unavailable ROSE CORTEZ MD Admitting Unavailable ROSE CORTEZ MD Attending Unavailable PROVIDER, UNKNOWN Consulting Unavailable PROVIDER, UNKNOWN Consulting Unavailable YONATHAN KUNZ MD Referring Unavailable YONATHAN KUNZ MD Consulting Unavailable ROSE CORTEZ MD Attending Unavailable ROSE CORTEZ MD Primary Care Unavailable ROSE CORTEZ MD Admitting Unavailable PROVIDER, UNKNOWN Consulting Unavailable PROVIDER, UNKNOWN Consulting Unavailable Batsheva Oviedo Attending Unavailable Batsheva Fox Referring Unavailable Batsheva Fox Primary Care Unavailable Batsheva Fox Referring Unavailable Batsheva Fox Primary Care Unavailable Batsheva Oviedo Attending Unavailable Allergies Allergy Classification Reported Allergen(s) Allergy Type Date of Onset Reaction(s) Facility (2 sources) Adrenergic Beta-Antagonists Propensity to adverse reactions to drug 07-24-19 11 Anaphylaxis [facility] (2 sources) Amoxicillin Drug Allergy 07-24-19 11 Rash [facility] (1 source) Ciprofloxacin Drug Allergy 10-20-19 12 [facility] (2 sources) Clarithromycin Drug Allergy 07-24-[address] [facility] (1 source) metFORMIN Drug Allergy 10-20-[address] [facility] (1 source) Penicillins Propensity to adverse reactions to drug 07-24-[address] [facility] (8 sources) Vancomycin; Translations: [vancomycin] Drug Allergy 07-24-[address] [facility] (1 source) Fd&C Blue #2 Al Larson-Glimepiride Propensity to adverse reactions to drug 10-20-[address] [facility] (6 sources) Atenolol; Translations: [atenolol] Drug Allergy Bradycardia [facility] (6 sources) Bisoprolol; Translations: [bisoprolol] Drug Allergy Unknown (qualifier value) [facility] (1 source) Ciprofloxacin Drug Allergy [facility] (8 sources) Clarithromycin; Translations: [BIAXIN] Drug Allergy GI upset [facility] (6 sources) dilTIAZem; Translations: [diltiazem] Drug Allergy Dizziness (finding) [facility] (6 sources) nebivolol; Translations: [nebivolol] Drug Allergy Irregular heart beat [facility] (6 sources) Penicillin Drug Allergy [facility] (6 sources) glucaphage Drug allergy [facility] (5 sources) Ciprofloxacin Drug Allergy [facility] Comment on above: iv only can takepo c ipro (2 sources) Amoxicillin Drug Allergy [facility] (2 sources) Atenolol Drug Allergy [facility] (2 sources) Bisoprolol Drug Allergy [facility] (2 sources) Ciprofloxacin Drug Allergy [facility] (2 sources) Clarithromycin Drug Allergy [facility] (2 sources) dilTIAZem Drug Allergy [facility] (2 sources) metFORMIN Drug Allergy [facility] (2 sources) nebivolol Drug Allergy [facility] (2 sources) Penicillins Drug allergy (disorder) [facility] (2 sources) Vancomycin Drug Allergy [facility] (1 source) Ciprofloxacin Drug Allergy 01-27-20 16 [facility] (2 sources) metFORMIN; Translations: [metformin HCl] Drug Allergy 01-27-[address] [facility] (1 source) Penicillins Allergy to substance 01-27-20 16 [facility] (1 source) Adrenergic Beta-Antagonists Drug allergy (disorder) 01-27-[address] [facility] (1 source) Amoxicillin Drug Allergy 01-27-[address] [facility] (1 source) Ciprofloxacin Drug Allergy 01-27-[address] [facility] (1 source) Clarithromycin Drug Allergy 01-27-[address] [facility] (1 source) Penicillins Drug allergy (disorder) 01-27-[address] [facility] (1 source) Vancomycin Drug Allergy 01-27-[address] [place] [address] Repository Medications Current Medications Medication Drug Class(es) Dates Sig (Normalized) Sig (Original) acetaminophen 650 mg oral tablet (1 source) Start: 10-12-2022 acetaminophen Dose : 650 mg = 2 tab(s), Oral, q4h, PRN Pain, scale 1-6, 0 Refill(s) Start Date: 10/12/22 Status: Ordered acetaminophen 325 mg / HYDROcodone bitartrate 7.5 mg oral tablet (5 sources) Opioid Agonist Start: 10-20-2022 take 1 tablet by mouth every four hours as needed for pain acetaminophen-hydro codone 325 mg-7.5 mg oral tablet Dose = 1 tab(s), Oral, q4h, PRN for pain, # 12 tab(s), 0 Refill(s), 99.3 Start Date: 10/20/22 Status: Ordered Start: 09-09-2022 End: 09-16-2022 take 1 tablet by mouth every six hours as needed for pain acetaminophen-hydrocodone 325 mg-7.5 mg oral tablet Dose = 1 tab(s), Oral, q6hr, PRN as needed for pain, # 30 tab(s), 0 Refill(s), Pharmacy: [facility], Chronic left hip pain Chronic lumbar pain, 161, cm, 09/09/22 13:39:00 EDT, Height, 96.1, kg, 09/09/22 13:39:00 EDT, Dosing Weight Start Date: 09/09/22 Stop Date: 09/16/22 Status: Ordered Start: 11-16-2019 End: 12-16-2019 take 1 tablet by mouth three times daily as needed for pain acetaminophen-hydrocodone 325 mg-7.5 mg oral tablet Dose = 1 tab(s), Oral, TID, PRN joint pain, # 90 tab(s), 0 Refill(s), Pharmacy: [facility], Chronic left hip pain Chronic lumbar pain, 170.2, cm, 11/13/19 12:54:00 EDT, Height, 103.5, kg, 11/13/19 12:54:00 EDT, Dosing Weight Start Date: 11/16/19 Stop Date: 12/16/19 Status: Ordered Start: 11-02-2013 Hydrocodone-Ac etaminophen 1 TABLET tablet Active 1 {tbl} PO 3 TIMES DAILY NEEDED as needed for Pain November 02, 2013 12:00am amLODIPine 10 mg oral tablet (5 sources) Dihydropyridine Calcium Channel [place] Start: 10-14-2022 amLODIPine 10 mg oral tablet Dose : 10 mg = 1 tab(s), Oral, qDay, # 30 tab(s), 0 Refill(s), other reason (Rx), 170.2, cm, 09/30/22 22:45:00 EDT, Height, kg, 09/30/22 22:45:00 EDT, Dosing Weight Start Date: 10/14/22 Status: Ordered Start: 06-24-2021 amLODIPine 5 m g oral tablet Dose : 5 mg = 1 tab(s), Oral, qDay, # 90 tab(s), 3 Refill(s), Pharmacy: [facility], 170, cm, 06/23/21 2:20:00 EDT, Height Start Date: 06/24/21 Status: Ordered Start: 10-30-2019 amLODIPine 10 mg oral tablet Dose : 10 mg = 1 tab(s), Oral, qDay, # 90 tab(s), 3 Refill(s), Pharmacy: [facility], 170.2, cm, 01/01/21 13:08:00 EDT, Height, kg, 01/01/21 13:08:00 EDT, Dosing Weight Start Date: 01/01/21 Status: Ordered aspirin 81 mg delayed release oral tablet (2 sources) Platelet Aggregation Inhibitor, Nonsteroidal Anti-inflammatory Drug Start: 10-30-2019 take 1 tablet by mouth once daily Aspirin 81 MG tablet,delayed release (DR/EC) Active 81 mg PO DAILY 1 October 30, 2019 12:00am Start: 2010 aspirin 81 MG tablet Take by mouth daily. 0 2010 Active atorvastatin 40 mg oral tablet (4 sources) HMG-CoA Reductase Inhibitor Start: 05-19-2023 End: 06-22-2024 Lipitor 40 mg oral tablet Dose : 40 mg = 1 tab(s), Oral, qDay, # 100 tab(s), 3 Refill(s), Pharmacy: [facility], 170.2, cm, 04/10/23 20:00:00 EST, Height, kg, 04/10/23 20:00:00 EST, Dosing Weight Start Date: 05/19/23 Stop Date: 06/22/24 Status: Ordered Quantity: 100.0 Unit: tab(s) Repeat number: 4 Start: 04-18-2023 Lipitor 40 mg oral tablet Dose : 40 mg = 1 tab(s), Oral, qDay, # 30 tab(s), 0 Refill(s), Pharmacy: [facility], 170.2, cm, 04/10/23 20:00:00 EST, Height, kg, 04/10/23 20:00:00 EST, Dosing Weight Start Date: 04/18/23 Status: Ordered Start: 08-31-2022 atorvastatin 2 0 mg oral tablet Dose : 20 mg = 1 tab(s), Oral, qDay, # 90 tab(s), 0 Refill(s) Start Date: 08/31/22 Status: Ordered benzocaine 0.2 mg/mg oral gel (1 source) Standardized Chemical Allergen Start: 05-07-2024 benzocaine 20% mucou s membrane gel Topical, BID, 0 Refill(s) Start Date: 05/07/24 Status: Ordered Repeat number: 1 Blood Glucose Test Machine (3 sources) Start: 04-25-2023 Blood Glucose Test Machine See Instructions, Dispense 1 glucometer, use as directed twice daily to check blood sugar. Diagnosis: E11.9, # 1 EA, 0 Refill(s), Pharmacy: [facility], Diabetes mellitus type 2, insulin dependent, 170.2, cm, 04/10/23 20:00:00 EST, Height, 100.4, kg, 04/10/23 20:00:00 EST, Dosing Weight Start Date: 04/25/23 Status: Ordered Quantity: 1.0 Unit: EA Repeat number: 1 Indication: Type 2 diabetes mellitus without complications Start: 08-31-2022 Blood Glucose Test Machine See Instructions, Dispense 1 glucometer, use as directed 4 times a day to test blood sugar. Diagnosis is E11.9. Frequent testing due to insulin dependence and fluctuating blood sugars., # 1 EA, 0 Refill(s), Pharmacy: [facility], Diabetes mellitus type 2, insulin dependent, 161, cm, 08/31/22 13:09:00 EDT, Height, 97.2 Start Date: 08/31/22 Status: Ordered Start: 08-31-2022 Blood Glucose Test Machine See Instructions, Dispense 1 glucometer, use as directed 4 times a day to test blood sugar. Diagnosis is E11.9. Frequent testing due to insulin dependence and fluctuating blood sugars., # 1 EA, 0 Refill(s), Pharmacy: [facility], Diabetes... Start Date: 08/31/22 Status: Ordered busPIRone hydrochloride 5 mg oral tablet (1 source) Start: 10-14-2022 busPIRone 5 mg oral tablet Dose : 5 mg = 1 tab(s), Oral, BID, 0 Refill(s) Start Date: 10/14/22 Status: Ordered calcium carbonate 1000 mg oral tablet (1 source) Start: 03-05-2021 calcium carbonate 1000 mg oral tablet, chewable Dose : 1,000 mg = 1 tab(s), Chewed, BID, PRN as needed for dyspepsia, 0 Refill(s) Start Date: 03/05/21 Status: Ordered carvedilol 12.5 mg oral tablet (1 source) alpha-Adrenergic Clinton, beta-Adrenergic Clinton Start: 09-01-2018 take 1 tablet by mouth twice daily at mealtime carvedilol (COREG) 12.5 MG tablet Take 12.5 mg by mouth 2 times daily (with meals). 3 09/01/2018 Active clopidogrel 75 mg oral tablet (2 sources) [id number] Platelet Inhibitor Start: 04-18-2023 End: 11-14-2024 Plavix 75 mg oral tablet Dose : 75 mg = 1 tab(s), Oral, qDay, # 100 tab(s), 3 Refill(s), Pharmacy: [facility], 167.5, cm, 10/11/23 16:00:00 EDT, Height, kg, 10/11/23 16:00:00 EDT, Dosing Weight Start Date: 10/11/23 Stop Date: 11/14/24 Status: Ordered Quantity: 100.0 Unit: tab(s) Repeat number: 4 Cold and Flu Daytime Relief 325 mg-10 mg-5 mg oral capsule (1 source) Start: 05-07-2024 take 1 capsule by mouth every four hours Cold and Flu Daytime Relief 325 mg-10 mg-5 mg oral capsule cap(s), Oral, q4h, 0 Refill(s) Start Date: 05/07/24 Status: Ordered Repeat number: 1 Cold and Flu Nighttime Relief (1 source) Start: 05-07-2024 Cold and Flu Nighttime Relief Oral, q6hr, 0 Refill(s) Start Date: 05/07/24 Status: Ordered Repeat number: 1 doxycycline hyclate 100 mg oral tablet (1 source) Tetracycline-class Drug Start: 05-03-2024 End: 05-13-2024 doxycycline hyclate 100 mg oral tablet Dose : 100 mg = 1 tab(s), Oral, q12h, X 10 day(s), # 20 tab(s), 0 Refill(s), 05/13/24 4:04:00 PM EST, Pharmacy: [facility], Cellulitis of leg, 159, cm, 01/18/24 13:24:00 EDT, Height, 100.7, kg, 01/18/24 13:24:00 EDT, Dosing Weight Start Date: 05/03/24 Stop Date: 05/13/24 Status: Ordered Quantity: 20.0 Unit: tab(s) Repeat number: 1 Indication: Cellulitis of unspecified part of limb empagliflozin 25 mg oral tablet (2 sources) Sodium-Glucose Cotransporter 2 Inhibitor Start: 10-11-2023 End: 11-14-2024 Jardiance 25 mg oral tablet Dose : 25 mg = 1 tab(s), Oral, qAM, # 100 tab(s), 3 Refill(s), Pharmacy: [facility], Diabetes mellitus type 2, insulin dependent, 167.5, cm, 10/11/23 16:00:00 EDT, Height, kg, 10/11/23 16:00:00 EDT, Dosing Weight Start Date: 10/11/23 Stop Date: 11/14/24 Status: Ordered Quantity: 100.0 Unit: tab(s) Repeat number: 4 Indication: Type 2 diabetes mellitus without complications Start: 04-18-2023 Jardiance 10 m g oral tablet Dose : 10 mg = 1 tab(s), Oral, qAM, # 30 tab(s), 0 Refill(s), Pharmacy: [facility], 170.2, cm, 04/10/23 20:00:00 EST, Height, kg, 04/10/23 20:00:00 EST, Dosing Weight Start Date: 04/18/23 Status: Ordered famotidine 20 mg oral tablet (1 source) Histamine-2 Receptor Antagonist Start: 05-07-2024 End: 05-17-2024 Pepcid 20 mg oral tablet Dose : 20 mg = 1 tab(s), Oral, BID, # 20 tab(s), 0 Refill(s), Pharmacy: [facility], Chronic urticaria, 159, cm, 05/07/24 14:53:00 EST, Height, kg, 05/07/24 14:53:00 EST, Dosing Weight Start Date: 05/07/24 Stop Date: 05/17/24 Status: Ordered Quantity: 20.0 Unit: tab(s) Repeat number: 1 Indication: Other urticaria FLUoxetine 20 mg oral capsule (5 sources) Serotonin Reuptake Inhibitor Start: 10-30-2019 take 3 capsules by mouth once daily Fluoxetine 20 MG capsule Active 60 mg PO DAILY October 30, 2019 4:37pm mental health Start: 09-16-2015 End: 10-30-2019 take 1 capsule by mouth three times daily Fluoxetine 20 MG capsule Discontinued 20 mg PO THREE TIMES A DAY December 03, 2015 12:00am October 30, 2019 4:37pm mental health furosemide 40 mg oral tablet (7 sources) Loop Diuretic Start: 07-05-2023 End: 08-08-2024 Lasix 40 mg oral tablet Dose : 40 mg = 1 tab(s), Oral, qDay, # 100 tab(s), 3 Refill(s), Pharmacy: [facility], Acute systolic heart failure, 167.5, cm, 07/05/23 14:23:00 EDT, Height, kg, 07/05/23 14:23:00 EDT, Dosing Weight Start Date: 07/05/23 Stop Date: 08/08/24 Status: Ordered Quantity: 100.0 Unit: tab(s) Repeat number: 4 Indication: Acute systolic (congestive) heart failure Start: 04-18-2023 End: 05-18-2023 Lasix 40 mg oral tablet Dose : 40 mg = 1 tab(s), Oral, qDay, # 30 tab(s), 0 Refill(s), Pharmacy: [facility], 170.2, cm, 04/10/23 20:00:00 EST, Height, kg, 04/10/23 20:00:00 EST, Dosing Weight Start Date: 04/18/23 Stop Date: 05/18/23 Status: Ordered Start: 03-12-2021 Lasix 40 mg or al tablet Dose : 40 mg = 1 tab(s), Oral, qDay, start on 10/18/22, # 90 tab(s), 2 Refill(s), Pharmacy: [facility], 170.2, cm, 03/05/21 14:09:00 EST, Height, kg, 03/05/21 14:09:00 EST, Dosing Weight Start Date: 03/12/21 Status: Ordered Start: 04-18-2020 Lasix 40 mg or al tablet Dose : 60 mg = 1.5 tab(s), Oral, Daily, # 135 tab(s), 2 Refill(s), Pharmacy: [facility], 170.2, cm, 04/18/20 13:43:00 EST, Height, kg, 04/18/20 13:43:00 EST, Dosing Weight Start Date: 04/18/20 Status: Ordered take 2 tablets by mo uth once daily furosemide (LASIX) 20 MG tablet Take 40 mg by mouth daily. 0 Active hydrALAZINE hydrochloride 50 mg oral tablet (3 sources) Arteriolar Vasodilator Start: 09-11-2020 hydrALAZINE 50 mg oral tablet Dose : 50 mg = 1 tab(s), Oral, BID, # 180 tab(s), 3 Refill(s), Pharmacy: [facility], 170.2, cm, 09/11/20 11:17:00 EDT, Height, kg, 09/11/20 11:17:00 EDT, Dosing Weight Start Date: 09/11/20 Status: Ordered take 1 tablet by fredy three times daily hydrALAZINE (APRESOLINE) 10 MG tablet Ta ke 10 mg by mouth 3 times daily. 0 Active hydroCHLOROthiazide 25 mg / lisinopril 20 mg oral tablet (1 source) Thiazide Diuretic, Angiotensin Converting Enzyme Inhibitor take 20-25 mg by mouth once lisinopril-hydrochlorothiazide (PRINZIDE,ZESTORETIC) 20-25 MG per tablet Take 2 tablets by mouth daily. 0 Active 3 ml insulin aspart protamine, human 70 unt/ml / insulin aspart, human 30 unt/ml pen injector (1 source) Insulin Analog Sta rt: 0 Insulin Asp Prt-Insulin Aspa rt 100 UNITS/ML insulin pen Active 40 U SC DAILY WITH MEALS October 30, 2019 12:00am diabetes insulin detemir 100 unt/ml injectable solution (1 source) Insulin Analog insulin detemir (LEVEMIR FLEXPEN) 100 UNIT/ML injection Inject 25 Units into the skin nightly. 0 Active 3 ml insulin glargine 300 unt/ml pen injector (1 source) Insulin Analog Sta rt: 5 inject 1 dose by subcutaneous injection once daily Toujeo Max SoloStar 300 units/mL subcutaneous solution Dose : 24 unit(s) =, Subcutaneous, qDay, # 6 mL, 3 Refill(s), other reason (Rx), Diabetes mellitus type 2, insulin dependent Start Date: 05/07/24 Status: Ordered Quantity: 6.0 Unit: mL Repeat number: 4 Indication: Type 2 diabetes mellitus without complications insulin glargine-yfgn 100 units/mL subcutaneous solution (2 sources) Sta rt: 3 insulin glargine-yfgn 100 units/mL subcutaneous solution 20, Subcutaneous, qDay, q andrew, 0 Refill(s) Start Date: 08/31/22 Status: Ordered insulin glargine-yfgn 100 UNT/ML Injectable Solution (1 source) Sta rt: 3 insulin glargine-yfgn 100 units/mL subcutaneous solution 20, Subcutaneous, qDay, q andrew, 0 Refill(s) Start Date: 08/31/22 Status: Ordered insulin isophane / insulin, regular, human (2 sources) Insulin Sta rt: 9 inject 1 dose by subcutaneous injection once daily NovoLIN 70/30 Dose : 25 unit(s) =, Subcutaneous, Daily, 0 Refill(s) Start Date: 10/16/18 Status: Ordered Start: 10-16-2018 inject 1 dose by sub cutaneous injection once daily in the morning NovoLIN 70/30 Dose : 40 unit(s) =, Subcutaneous, qAM, # 10 mL, 0 Refill(s) Start Date: 10/16/18 Status: Ordered 3 ml insulin lispro 200 unt/ml pen injector (2 sources) Insulin Analog Start: 01-18-2024 End: 05-17-2024 inject 1 dose by subcutaneous injection three times daily at mealtime HumaLOG KwikPen (CONCENTRATED) 200 units/mL PEN Dose : 5 unit(s) =, Subcutaneous, TID, with beginning of each meal, # 9 mL, 3 Refill(s), PEN, Pharmacy: [facility], Diabetes mellitus type 2, insulin dependent, 159, cm, 01/18/24 13:24:00 EDT, Height, kg, 01/18/24 13:24:00 EDT, Dosing Weight Start Date: 01/18/24 Stop Date: 05/17/24 Status: Ordered Quantity: 9.0 Unit: mL Repeat number: 4 Indication: Type 2 diabetes mellitus without complications Start: 10-12-2022 HumaLOG 100 un its/mL subcutaneous solution Give 0-10 units/dose, Subcutaneous, TIDAC, 0 Refill(s) Start Date: 10/12/22 Status: Ordered insulin lispro (Humalog) 100 units/mL injectable solution (2 sources) Start: 08-31-2022 insulin lispro (Humalog) 100 units/mL injectable solution Dose : 5 unit(s) =, Subcutaneous, TIDAC, # 15 mL, 0 Refill(s) Start Date: 08/31/22 Status: Ordered 3 ml insulin aspart, human 100 unt/ml pen injector (2 sources) Insulin Analog Start: 03-01-2023 End: 02-24-2024 NovoLOG FlexPen 100 units/mL injectable solution Dose : 5 unit(s) =, Subcutaneous, TIDAC, # 15 mL, 3 Refill(s), Pharmacy: [facility], Diabetes mellitus type 2, insulin dependent, 159.5, cm, 02/24/23 15:28:00 EST, Height, kg, 02/24/23 15:28:00 EST, Dosing Weight Start Date: 03/01/23 Stop Date: 02/24/24 Status: Ordered insulin aspart ( NOVOLOG) 100 UNIT/ML injection Inject 6 Units into the skin 3 times daily (before meals). 0 Active irbesartan 300 mg oral tablet (1 source) Angiotensin 2 Receptor Clinton take 1 tablet by mouth once daily irbesartan (AVAPRO) 300 MG tablet Take 300 mg by mouth daily. 0 Active lisinopril 40 mg oral tablet (6 sources) Angiotensin Converting Enzyme Inhibitor Start: 06-24-2021 lisinopril 40 mg oral tablet Dose : 40 mg = 1 tab(s), Oral, qDay, # 90 tab(s), 3 Refill(s), Pharmacy: [facility], 170, cm, 06/23/21 2:20:00 EDT, Height Start Date: 06/24/21 Status: Ordered Start: 05-26-2020 lisinopril 40 mg oral tablet Dose : 40 mg = 1 tab(s), Oral, BID, Paitent prefers 90 days, # 180 tab(s), 3 Refill(s), Pharmacy: [facility], 170.2, cm, 04/18/20 13:43:00 EST, Height, kg, 04/18/20 13:43:00 EST, Dosing Weight Start Date: 05/26/20 Status: Ordered Start: 10-30-2019 take [address] [facility] once daily Lisinopril 20 MG tablet Active 40 mg PO DAILY 1 0 October 30, 2019 4:37pm blood pressure Start: 11-02-2013 End: 10-30-2019 take 2 tablets by mouth twice daily Lisinopril 20 MG tablet Discontinued 40 mg PO TWICE A DAY November 02, 2013 12:00am October 30, 2019 4:37pm blood pressure loperamide hydrochloride 2 mg oral capsule (3 sources) Opioid Agonist Start: 10-16-2018 take 1 capsule by mouth every four hours as needed Loperamide 2 MG capsule Active 2 mg PO EVERY 4 HOURS NEEDED as needed for Loose Stools October 30, 2019 12:00am Lopressor 25mg--USE metoprolol tartrate 25 mg oral tablet (2 sources) Start: 08-31-2022 Lopressor 25mg--USE metoprolol tartrate 25 mg oral tablet Dose : 25 mg = 1 tab(s), Daily, 0 Refill(s) Start Date: 08/31/22 Status: Ordered loratadine 10 mg oral tablet (3 sources) Start: 05-19-2023 End: 05-17-2024 loratadine 10 mg oral tablet Dose : 10 mg = 1 tab(s), Oral, qDay, X 10 day(s), # 10 tab(s), 0 Refill(s), 05/17/24 3:40:00 PM EST, Pharmacy: [facility], Chronic urticaria, 159, cm, 05/07/24 14:53:00 EST, Height, kg, 05/07/24 14:53:00 EST, Dosing Weight Start Date: 05/07/24 Stop Date: 05/17/24 Status: Ordered Quantity: 10.0 Unit: tab(s) Repeat number: 1 Indication: Other urticaria Start: 12-27-2022 End: 03-27-2023 loratadine 10 mg oral tablet Dose : 10 mg = 1 tab(s), Oral, BID, PRN Itching, # 180 tab(s), 3 Refill(s), Pharmacy: [facility], Chronic urticaria, 160, cm, 12/27/22 8:15:00 EDT, Height, kg, 12/27/22 8:15:00 EDT, Dosing Weight Start Date: 12/27/22 Stop Date: 03/27/23 Status: Ordered losartan potassium 25 mg oral tablet (2 sources) Angiotensin 2 Receptor Clinton Start: 04-25-2023 losartan 25 mg oral tablet Dose : 25 mg = 1 tab(s), Oral, qDay, # 90 tab(s), 3 Refill(s), Pharmacy: [facility], 170.2, cm, 04/10/23 20:00:00 EST, Height, kg, 04/10/23 20:00:00 EST, Dosing Weight Start Date: 04/25/23 Status: Ordered Quantity: 90.0 Unit: tab(s) Repeat number: 4 Start: 02-24-2023 losartan 25 mg oral tablet Dose : 25 mg = 1 tab(s), Oral, qDay, # 30 tab(s), 3 Refill(s), Pharmacy: [facility], 159.5, cm, 02/24/23 15:28:00 EST, Height, kg, 02/24/23 15:28:00 EST, Dosing Weight Start Date: 02/24/23 Status: Ordered meloxicam 7.5 mg oral tablet (1 source) Nonsteroidal Anti-inflammatory Drug Start: 10-30-2019 take 1-2 tablets by mouth once daily as needed for pain Meloxicam 7.5 MG tablet Active 7.5 mg PO DAILY as needed for pain October 30, 2019 12:00am 1-2 tabs mirtazapine 30 mg oral tablet (2 sources) Start: 07-05-2023 End: 08-08-2024 mirtazapine 30 mg oral tablet Dose : 30 mg = 1 tab(s), Oral, qHS, # 100 tab(s), 3 Refill(s), Pharmacy: [facility], 167.5, cm, 07/05/23 14:23:00 EDT, Height, kg, 07/05/23 14:23:00 EDT, Dosing Weight Start Date: 07/05/23 Stop Date: 08/08/24 Status: Ordered Quantity: 100.0 Unit: tab(s) Repeat number: 4 Start: 03-07-2023 mirtazapine 30 mg oral tablet Dose : 30 mg = 1 tab(s), Oral, qHS, Replaces previous Rx for mirtazapine 15 mg dose., # 30 tab(s), 2 Refill(s), Pharmacy: [facility], 159.5, cm, 02/24/23 15:28:00 EST, Height, kg, 02/24/23 15:28:00 EST, Dosing Weight Start Date: 03/07/23 Status: Ordered ondansetron 4 mg oral tablet (1 source) Serotonin-3 Receptor Antagonist Start: 12-27-2022 ondansetron 4 mg oral tablet Dose : 4 mg = 1 tab(s), Oral, q8h, PRN Nausea/Vomiting, # 15 tab(s), 0 Refill(s) Start Date: 12/27/22 Status: Ordered Pen needles 5 mm (1 source) Start: 04-25-2023 Pen needles 5 mm See Instructions, Use 1 pen needle 4 times daily as directed to inject insulin. Diagnosis: E11.9, # 400 EA, 3 Refill(s), Pharmacy: [facility], Diabetes mellitus type 2, insulin dependent, 170.2, cm, 04/10/23 20:00:00 EST, Height, 100.4, kg, 04/10/23 20:00:00 EST, Dosing Weight Start Date: 04/25/23 Status: Ordered Quantity: 400.0 Unit: EA Repeat number: 4 Indication: Type 2 diabetes mellitus without complications pimecrolimus 10 mg/ml topical cream (1 source) Calcineurin Inhibitor Immunosuppressant Start: 05-07-2024 End: 07-06-2024 Elidel 1% topical cream Apply 1 krishna, Topical, BID, X 30 day(s), # 15 gram(s), 1 Refill(s), Pharmacy: [facility], Cream, 159, cm, 05/07/24 14:53:00 EST, Height, 105.9, kg, 05/07/24 14:53:00 EST, Dosing Weight Start Date: 05/07/24 Stop Date: 07/06/24 Status: Ordered Quantity: 15.0 Unit: g Repeat number: 2 Indication: Lichen simplex chronicus pravastatin sodium 40 mg oral tablet (2 sources) HMG-CoA Reductase Inhibitor Start: 11-02-2013 take 2 tablets by mouth once daily Pravastatin 40 MG tablet Active 80 mg PO DAILY November 02, 2013 12:00am cholesterol take 1 tablet by mouth once jake y pravastatin (PRAVACHOL) 20 MG tablet Take 20 mg by mouth daily. 0 Active sotalol hydrochloride 80 mg oral tablet (4 sources) Antiarrhythmic Start: 07-20-2021 sotalol 80 mg oral tablet Dose : 80 mg = 1 tab(s), Oral, qHS, # 90 tab(s), 5 Refill(s), Pharmacy: [facility], 170.2, cm, 07/20/21 13:25:00 EDT, Height Start Date: 07/20/21 Status: Ordered Start: 10-16-2018 take 1 tablet by fredy th in the morning sotalol (BETAPACE) 80 MG tablet TAKE 1 2 (ONE HALF) TABLET BY MOUTH IN THE MORNING AND 1 TABLET IN THE EVENING 3 10/16/2018 Active Start: 12-03-2015 End: 10-30-2019 Sotalol (Betapace Af (Beta B locker)) 80 MG tablet Discontinued 40 mg PO TWICE A DAY December 03, 2015 12:00am October 30, 2019 4:27pm heart rate Turmeric-Turmeric Root Extract 1 EACH capsule (1 source) Start: 10-30-2019 take 1 capsule by mouth once daily Turmeric-Turmeric Root Extract 1 EACH capsule Active 500 mg PO DAILY October 30, 2019 12:00am supplement verapamil hydrochloride 180 mg extended release oral tablet (1 source) Calcium Channel Clinton take 1 tablet by mouth once daily in the morning verapamil (CALAN-SR) 180 MG CR tablet Take 180 mg by mouth every morning. 0 Active Vitamin D3 125 mcg (5000 intl units) oral capsule (4 sources) Start: 04-25-2023 End: 05-29-2024 Vitamin D3 125 mcg (5000 intl units) oral capsule Dose : 125 mcg = 1 cap(s), Oral, qDay, # 100 cap(s), 3 Refill(s), Pharmacy: [facility], 170.2, cm, 04/10/23 20:00:00 EST, Height, kg, 04/10/23 20:00:00 EST, Dosing Weight Start Date: 04/25/23 Stop Date: 05/29/24 Status: Ordered Quantity: 100.0 Unit: cap(s) Repeat number: 4 Start: 12-17-2022 Vitamin D3 125 mcg (5000 intl units) oral capsule Dose : 125 mcg = 1 cap(s), Oral, qDay, # 30 cap(s), 0 Refill(s), Pharmacy: [facility], 170, cm, 10/21/22 9:08:00 EDT, Height, kg, 10/21/22 9:08:00 EDT, Dosing Weight Start Date: 12/17/22 Status: Ordered Start: 08-31-2022 Vitamin D3 125 mcg (5000 intl units) oral capsule Dose : 125 mcg = 1 cap(s), Oral, qDay, # 100 cap(s), 0 Refill(s) Start Date: 08/31/22 Status: Ordered warfarin sodium 4 mg oral tablet (5 sources) Vitamin K Antagonist Start: 08-31-2022 warfarin 4 mg oral tablet Dose : 4 mg = 1 tab(s), Oral, qDay, # 30 tab(s), 0 Refill(s) Start Date: 08/31/22 Status: Ordered Start: 03-30-2021 warfarin 5 mg oral tablet Dose : 5 mg = 1 tab(s), Oral, qDay, # 90 tab(s), 3 Refill(s), Pharmacy: [facility], 170.2, cm, 03/18/21 9:06:00 EST, Height, kg, 03/18/21 9:06:00 EST, Dosing Weight Start Date: 03/30/21 Status: Ordered Start: 09-11-2020 warfarin 5 mg oral tablet Dose : 5 mg = 1 tab(s), Oral, qDay, # 30 tab(s), 4 Refill(s), Pharmacy: [facility], 170.2, cm, 09/11/20 11:17:00 EDT, Height, kg, 09/11/20 11:17:00 EDT, Dosing Weight Start Date: 09/11/20 Status: Ordered Completed/Discontinued Medications Medication Drug Class(es) Dates Sig (Normalized) Sig (Original) amiodarone hydrochloride 200 mg oral tablet (3 sources) Antiarrhythmic Start: 04-15-2023 End: 08-23-2023 amiodarone 200 mg oral tablet Dose : 200 mg = 1 tab(s), Oral, qDay, # 120 tab(s), 0 Refill(s), Pharmacy: [facility], 170.2, cm, 04/10/23 20:00:00 EST, Height, kg, 04/10/23 20:00:00 EST, Dosing Weight Start Date: 04/25/23 Stop Date: 08/23/23 Status: Ordered Quantity: 120.0 Unit: tab(s) Repeat number: 1 apixaban 5 mg oral tablet (2 sources) Factor Xa Inhibitor Start: 04-18-2023 End: 04-29-2024 Eliquis 5 mg oral tablet Dose : 5 mg = 1 tab(s), Oral, BID, # 180 tab(s), 3 Refill(s), Pharmacy: [facility], 170.2, cm, 04/10/23 20:00:00 EST, Height, 100.4, kg, 04/10/23 20:00:00 EST, Dosing Weight Start Date: 05/05/23 Stop Date: 04/29/24 Status: Ordered Quantity: 180.0 Unit: tab(s) Repeat number: 4 baclofen 10 mg oral tablet (1 source) gamma-Aminobutyric Acid-ergic Agonist Start: 12-03-2015 End: 10-30-2019 take 1 tablet by mouth four times daily as needed for muscle spasms Baclofen 10 MG tablet Discontinued 10 mg PO 4 TIMES DAILY NEEDED as needed for Spasms December 03, 2015 12:00am October 30, 2019 4:25pm Daptomycin (1 source) Lipopeptide Antibacterial Start: 10-12-2022 End: 11-02-2022 DAPTOmycin Dose : 600 mg = 12 mL, IV Piggyback, qDay, 0 Refill(s), 99.3 Start Date: 10/12/22 Stop Date: 11/02/22 Status: Ordered Lovenox (1 source) Low Molecular Weight Heparin Start: 10-12-2022 End: 10-14-2022 inject 1 mL by subcutaneous injection every twelve hours Lovenox Dose : 100 mg = 1 mL, Subcutaneous, q12h, 0 Refill(s) Start Date: 10/12/22 Stop Date: 10/14/22 Status: Ordered 24 hr metoprolol succinate 25 mg extended release oral tablet (6 sources) beta-Adrenergic Clinton Start: 04-18-2023 End: 04-18-2023 metoprolol succinate 25 mg oral TABLET extended release Start: 04/18/23 5:00:00 PM EST, Dose = 25 mg, = 1 tab(s), Oral, give with food, 0, 04/14/23 8:48:00 EST Start Date: 04/18/23 Stop Date: 04/18/23 Status: Completed Start: 04-18-2023 metoprolol suc cinate 25 mg oral TABLET extended release Dose : 25 mg = 1 tab(s), Oral, BID, # 60 tab(s), 0 Refill(s), Pharmacy: [facility], 170.2, cm, 04/10/23 20:00:00 EST, Height, kg, 04/10/23 20:00:00 EST, Dosing Weight Start Date: 04/18/23 Status: Ordered Start: 04-17-2023 End: 04-18-2023 metoprolol succinate 25 mg o ral TABLET extended release Start: 04/18/23 8:00:00 AM EST, Dose = 25 mg, = 1 tab(s), Oral, give with food, 0, 04/14/23 8:48:00 EST Start Date: 04/18/23 Stop Date: 04/18/23 Status: Completed Start: 05-26-2020 take 1 tablet by fredy th once daily Metoprolol Tartrate 25 mg oral tablet See Instructions, Take 1 tablet by mouth once daily, # 30 tab(s), 11 Refill(s), Pharmacy: [facility], 170.2, cm, 04/18/20 13:43:00 EST, Height, kg, 04/18/20 13:43:00 EST, Dosing Weight Start Date: 05/26/20 Status: Ordered Miconazole (1 source) Azole Antifungal Start: 10-14-2022 miconazole 2% topical powder Apply 1 krishna, Topical, BID, 0 Refill(s), Powder, 99.3 Start Date: 10/14/22 Status: Ordered QUEtiapine 300 mg oral tablet (3 sources) Atypical Antipsychotic Start: 10-30-2019 End: 10-30-2019 take 2 tablets by mouth once daily Quetiapine 300 MG tablet Discontinued 600 mg PO DAILY October 30, 2019 12:00am October 30, 2019 4:27pm sleep Start: 11-08-2018 End: 05-04-2019 take 2 tablets by mouth once daily QUEtiapine (SEROQUEL) 300 MG tablet Indications: Bipolar 2 disorder (HCC) Take 2 tablets by mouth daily. 60 tablet 1 05/04/2019 Active Problems Active Problems Problem Classification Problem Date Documented Da te Episodic/Chronic Acute myocardial infarction (2 sources) Non-ST elevation (NSTEMI) myocardial infarction; Translations: [Myocardial infarction due to demand ischemia] Chronic Allergic reactions (6 sources) Urticaria; Translations: [Other urticaria] Onset: 4 Episodic Anxiety disorders (8 sources) Anxiety; Translations: [Anxiety disorder] Onset: 5 08-23-2014 Chronic Bacterial infection; unspecified site (1 source) Bacteremia; Translations: [Bacteremia] Episodic Cancer of breast (1 source) History of malignant neoplasm of breast; Translations: [Personal history of malignant neoplasm of breast] 10-29-2019 Episodic Cardiac dysrhythmias (20 sources) Atrial fibrillation; Translations: [Sick sinus syndrome] Onset: 3 03-11-2020 Chronic Cardiac dysrhythmias (1 source) Sinus bradycardia; Translations: [Bradycardia, unspecified] Onset: 1 Episodic Chronic kidney disease (1 source) Chronic kidney disease stage 3 05-07-2024 Chronic Chronic kidney disease (1 source) Chronic kidney disease; Translations: [Chronic kidney disease, stage 3 unspecified] Onset: 5 Conditions associated with dizziness or vertigo (4 sources) Dizziness 06-22-2021 Episodic Conduction disorders (6 sources) Cardiac pacemaker in situ; Translations: [Presence of cardiac pacemaker] Onset: 5 06-29-2021 Chronic Congestive heart failure; nonhypertensive (2 sources) Acute diastolic heart failure; Translations: [Acute diastolic (congestive) heart failure] Chronic Coronary atherosclerosis and other heart disease (2 sources) Coronary arteriosclerosis; Translations: [Atherosclerotic heart disease of hughes coronary artery without angina pectoris] Onset: 5 10-29-2019 Chronic Coronary atherosclerosis and other heart disease (1 source) Presence of coronary angioplasty implant and graft; Translations: [Presence of coronary angioplasty implant and graft] Onset: 5 Episodic Delirium, dementia, and amnestic and other cognitive disorders (1 source) Dementia; Translations: [Unspecified dementia, unspecified severity, with mood disturbance] Chronic Diabetes mellitus with complications (10 sources) Polyneuropathy due to diabetes mellitus; Translations: [Polyneuropathy due to type 2 diabetes mellitus] Onset: 5 10-16-2018 Chronic Diabetes mellitus without complication (12 sources) Diabetes mellitus; Translations: [Insulin treated type 2 diabetes mellitus] Onset: 3 10-16-2018 Chronic Disorders of lipid metabolism (8 sources) Hypercholesterolemia; Translations: [Pure hypercholesterolemia] 08-23-2014 Chronic Esophageal disorders (7 sources) Gastroesophageal reflux disease; Translations: [Gastroesophageal reflux disease without esophagitis] 10-16-2018 Chronic Essential hypertension (8 sources) Hypertensive disorder; Translations: [Essential hypertension] 08-23-2014 Chronic Heart valve disorders (6 sources) Mitral valve prolapse 08-23-2014 Chronic Hypertension with complications and secondary hypertension (2 sources) Hypertensive heart failure; Translations: [Hypertensive heart disease with heart failure] Onset: 5 Chronic Mood disorders (7 sources) Bipolar II disorder; Translations: [Bipolar disorder] Onset: 2 10-27-2011 Chronic Nausea and vomiting (3 sources) Nausea with vomiting, unspecified; Translations: [Nausea] Onset: 4 Episodic Nonspecific chest pain (6 sources) Chest pain 04-18-2020 Episodic Nutritional deficiencies (1 source) Vitamin D deficiency 04-25-2023 Chronic Osteoarthritis (6 sources) Bilateral osteoarthritis of knees 07-03-2019 Chronic Other aftercare (4 sources) Drug therapy status 06-22-2021 Episodic Other aftercare (1 source) Long-term current use of anticoagulant 03-02-2023 Episodic Other aftercare (1 source) intermodal dispatcher (current) use of anticoagulants; Translations: [intermodal dispatcher (current) use of anticoagulants] Onset: 5 Episodic Other aftercare (1 source) intermodal dispatcher (current) use of insulin; Translations: [intermediate (current) use of insulin] Onset: 5 Episodic Other aftercare (1 source) Encounter for follow-up examination after completed treatment for conditions other than malignant neoplasm; Translations: [Encounter for follow-up examination after completed treatment for conditions other than malignant neoplasm] Onset: 5 Episodic Other connective tissue disease (2 sources) Necrotizing fasciitis; Translations: [Necrotizing fasciitis] Onset: 3 Episodic Other connective tissue disease (1 source) Myositis; Translations: [Myositis, unspecified] Episodic Other diseases of veins and lymphatics (1 source) Lymphedema, not elsewhere classified; Translations: [Lymphedema, not elsewhere classified] Onset: 5 Chronic Other diseases of veins and lymphatics (1 source) Disorder of vein; Translations: [Other specified disorders of veins] Episodic Other diseases of veins and lymphatics (1 source) Peripheral venous insufficiency; Translations: [Venous insufficiency (chronic) (peripheral)] Episodic Other diseases of veins and lymphatics (1 source) Disorder of vein of lower extremity 10-11-2023 Episodic Other gastrointestinal disorders (1 source) Constipation, unspecified; Translations: [Constipation, unspecified] Episodic Other lower respiratory disease (6 sources) Hypoxia 10-08-2019 Episodic Other lower respiratory disease (4 sources) Dyspnea 06-22-2021 Episodic Other lower respiratory disease (2 sources) Rib pain 09-09-2022 Episodic Other non-traumatic joint disorders (6 sources) Hip pain 10-16-2018 Episodic Other nutritional; endocrine; and metabolic disorders (1 source) Morbid (severe) obesity due to excess calories; Translations: [Morbid (severe) obesity due to excess calories] Onset: 5 Chronic Other nutritional; endocrine; and metabolic disorders (1 source) Body mass index (BMI) 36.0-36.9, adult; Translations: [Body mass index [BMI] 36.0-36.9, adult] Onset: 5 Chronic Other screening for suspected conditions (not mental disorders or infectious disease) (1 source) Electrocardiogram abnormal; Translations: [Abnormal electrocardiogram [ECG] [EKG]] 10-29-2019 Episodic Other skin disorders (1 source) Inflammatory dermatosis 01-18-2024 Episodic Residual codes; unclassified (6 sources) 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 Comment on above: Sleeps with Oxygen Residual codes; unclassified (1 source) Obstructive sleep apnea syndrome; Translations: [Obstructive sleep apnea (adult) (pediatric)] Chronic Residual codes; unclassified (1 source) Obstructive sleep apnea (adult) (pediatric); Translations: [Obstructive sleep apnea (adult) (pediatric)] Onset: 5 Chronic Residual codes; unclassified (5 sources) Bilateral lower limb edema 03-11-2020 Episodic Residual codes; unclassified (1 source) Altered mental status 01-26-2023 Episodic Respiratory failure; insufficiency; arrest (adult) (7 sources) Dependence on supplemental oxygen; Translations: [Chronic respiratory failure] Onset: 3 03-18-2021 Chronic Comment on above: 2l nc at hs Screening and history of mental health and substance abuse codes (1 source) Personal history of nicotine dependence; Translations: [Personal history of nicotine dependence] Onset: 5 Episodic Skin and subcutaneous tissue infections (11 sources) Abscess of back ; Translations: [Cutaneous abscess of back [any part, except buttock]] Onset: 5 Episodic Spondylosis; intervertebral disc disorders; other back problems (6 sources) Chronic low back pain 07-03-2019 Episodic Suicide and intentional self-inflicted injury (1 source) Suicidal thoughts 10-20-2022 Episodic Unclassified (2 sources) Patient encounter status 09-11-2020 Past or Other Problems Problem Classification Problem Date Documented Da te Episodic/Chronic Other lower respiratory disease (3 sources) Shortness of breath; Translations: [Shortness of breath] Onset: 07-13-2024 Episodic Respiratory failure; insufficiency; arrest (adult) (1 source) Acute respiratory failure with hypoxia; Translations: [Acute respiratory failure with hypoxia] Onset: 04-09-2024 Episodic Results Test Name Value Interpretation Reference Range Facility ED MED ADMINISTRATION DETAIL on 10-17-2024 ED MED ADMINISTRATION DETAIL Normal [facility] ED NURSES CLINICAL NOTEon ED NURSES CLINICAL NOTE Normal [facility] ED ORDER SHEET (CPOE ONLY)on 10-17-2024 ED ORDER SHEET (CPOE ONLY) Normal [facility] ED PHYSICIAN CLINICAL REPORT on 10-17-2024 ED PHYSICIAN CLINICAL REPORT Normal [facility] ED SUPER BILLon 10-17-2024 ED SUPER BILL Normal [facility] ED VISIT SUMMARYon ED VISIT SUMMARY Normal [facility] ED VITALS FLOW SHEETon 10-17 ED VITALS FLOW SHEET Normal [facility] BMP with eGFRon 10-15-2024 AGE 74 years Normal [facility] Comment on above: Performed By: #### [id number] ####[facility],[address] [place] [address] [id number] Anion gap [Moles/Vol] 8 mmol/L Low 10 - 20 [facility] Comment on above: Performed By: #### 2 [id number] ####[facility],[address] [place] [address] [id number] BMP with eGFR Normal [facility] Comment on above: Result Comment: BASI C METABOLIC PANEL Performed By: #### 2 [id number] ####[facility],[address] [place] [address] 46333 Calcium [Mass/Vol] 8.3 mg/dL Low 8.5 - 10.1 [facility] Comment on above: Performed By: #### 2 [id number] ####[facility],[address] [place] [address] 01625 Chloride [Moles/Vol] 104 mmol/L Normal 98 - 107 [facility] Comment on above: Performed By: #### 2 [id number] ####[facility],[address] [place] [address] 51554 CO2 [Moles/Vol] 31.7 mmol/L Normal 21.0 - 32.0 [facility] Comment on above: Performed By: #### 2 [id number] ####[facility],[address] [place] [address] 10217 Creatinine [Mass/Vol] 1.34 mg/dL High 0.55 - 1.02 [facility] Comment on above: Performed By: #### 2 [id number] ####[facility],[address] [place] [address] 42739 eGFR 39 ML/MINUTE Low 60 - 999 [facility] Comment on above: Performed By: #### 2 [id number] ####[facility],[address] [place] [address] 74273 eGFR(AA) 47 ML/MINUTE Low 60 - 999 [facility] Comment on above: Result Comment: ACCO RDING TO THE NATIONAL KIDNEY DISEASE EDUCATION PROGRAM(NKDE), A NORMAL eGFRIS A VALUE GREATER THAN OR EQUAL TO 60 ML/MIN/1.73 SQ METERS.CHRONIC KIDNEY DISEASE: <60mL/MIN/1.73 SQ METERSKIDNEY FAILURE: <15mL/MIN/1.73 SQ METERSTHIS TEST SHOULD ONLY BE USED FOR PATIENTS 18 YEARS OF AGE AND OLDER. Performed By: #### 2 [id number] ####[facility],[address] [place] [address] 48282 Glucose [Mass/Vol] 223 mg/dL High 74 - 106 [facility] Comment on above: Performed By: #### 2 [id number] ####[facility],[address] [place] [address] 37856 Potassium [Moles/Vol] 3.9 mmol/L Normal 3.5 - 5.1 [facility] Comment on above: Performed By: #### 2 [id number] ####[facility],[address] [place] [address] 44437 Sodium [Moles/Vol] 140 mmol/L Normal 136 - 145 [facility] Comment on above: Performed By: #### 2 [id number] ####[facility],[address] [place] [address] 99632 Urea nitrogen [Mass/Vol] 15 mg/dL Normal 7 - 18 [facility] Comment on above: Performed By: #### 2 [id number] ####[facility],[address] [place] [address] 66904 BMP with eGFRon 10-14-2024 AGE 74 years Normal [facility] Comment on above: Performed By: #### 2 [id number] ####[facility],[address] [place] [address] 38532 Anion gap [Moles/Vol] 10 mmol/L Normal 10 - 20 [facility] Comment on above: Performed By: #### 2 [id number] ####[facility],[address] [place] [address] 17900 BMP with eGFR Normal [facility] Comment on above: Result Comment: BASI C METABOLIC PANEL Performed By: #### 2 [id number] ####[facility],[address] [place] [address] 40555 Calcium [Mass/Vol] 8.6 mg/dL Normal 8.5 - 10.1 [facility] Comment on above: Performed By: #### 2 [id number] ####[facility],[address] [place] [address] 26829 Chloride [Moles/Vol] 106 mmol/L Normal 98 - 107 [facility] Comment on above: Performed By: #### 2 [id number] ####[facility],[address] [place] [address] 78915 CO2 [Moles/Vol] 30.2 mmol/L Normal 21.0 - 32.0 [facility] Comment on above: Performed By: #### 2 [id number] ####[facility],[address] [place] [address] 40142 Creatinine [Mass/Vol] 1.39 mg/dL High 0.55 - 1.02 [facility] Comment on above: Performed By: #### 2 [id number] ####[facility],[address] [place] [address] 89480 eGFR 37 ML/MINUTE Low 60 - 999 [facility] Comment on above: Performed By: #### 2 [id number] ####[facility],[address] [place] [address] 28535 eGFR(AA) 45 ML/MINUTE Low 60 - 999 [facility] Comment on above: Result Comment: ACCO RDING TO THE NATIONAL KIDNEY DISEASE EDUCATION PROGRAM(NKDE), A NORMAL eGFRIS A VALUE GREATER THAN OR EQUAL TO 60 ML/MIN/1.73 SQ METERS.CHRONIC KIDNEY DISEASE: <60mL/MIN/1.73 SQ METERSKIDNEY FAILURE: <15mL/MIN/1.73 SQ METERSTHIS TEST SHOULD ONLY BE USED FOR PATIENTS 18 YEARS OF AGE AND OLDER. Performed By: #### 2 [id number] ####[facility],[address] [place] [address] 20555 Glucose [Mass/Vol] 122 mg/dL High 74 - 106 [facility] Comment on above: Performed By: #### 2 94282 ####[facility],[address] [place] [address] 85202 Potassium [Moles/Vol] 3.8 mmol/L Normal 3.5 - 5.1 [facility] Comment on above: Performed By: #### 2 65079 ####[facility],[address] [place] [address] 06406 Sodium [Moles/Vol] 142 mmol/L Normal 136 - 145 [facility] Comment on above: Performed By: #### 2 05672 ####[facility],[address] [place] [address] 57623 Urea nitrogen [Mass/Vol] 16 mg/dL Normal 7 - 18 [facility] Comment on above: Performed By: #### 2 59774 ####[facility],[address] [place] [address] 50384 CBC (NO DIFF)on 10-14-2024 CBC panel Auto (Bld) Normal [facility] Comment on above: Result Comment: CBC( WITHOUT DIFFERENTIAL) Performed By: #### 2 11071 ####[facility],[address] [place] [address] 13975 Erythrocyte distribution width (RBC) [Ratio] 19.1 % High 12.0 - 15.6 [facility] Comment on above: Performed By: #### 2 60443 ####[facility],[address] [place] [address] 56194 Hematocrit (Bld) [Volume fraction] 39.5 % Normal 34.0 - 46.0 [facility] Comment on above: Performed By: #### 2 87982 ####[facility],[address] [place] [address] 08449 Hemoglobin (Bld) [Mass/Vol] 13.2 g/dL Normal 12.0 - 16.0 [facility] Comment on above: Performed By: #### 2 76655 ####[facility],[address] [place] [address] 04776 MCH (RBC) [Entitic mass] 25 pg Low 27 - 33 [facility] Comment on above: Performed By: #### 2 99892 ####[facility],[address] [place] [address] 53418 MCHC 33 X10 3 Normal 32 - 36 [facility] Comment on above: Performed By: #### 2 78424 ####[facility],[address] [place] [address] 74819 MCV (RBC) [Entitic vol] 75 fL Low 80 - 99 [facility] Comment on above: Performed By: #### 2 29611 ####[facility],[address] [place] [address] 38469 PLATELET 167 x10EE3/UL Normal 150 - [address] [facility] Comment on above: Performed By: #### 2 14013 ####[facility],[address] [place] [address] 18538 Platelet mean volume (Bld) [Entitic vol] 8.9 fL Normal 6.6 - 10.5 [facility] Comment on above: Performed By: #### 2 15076 ####[facility],[address] [place] [address] 82427 RBC 5.27 x 10EE6/UL Normal 4.10 - 5.30 [facility] Comment on above: Performed By: #### 2 67309 ####[facility],[address] [place] [address] 47195 WBC 5.6 x 10EE3/UL Normal 4.5 - 10.8 [facility] Comment on above: Performed By: #### 2 63786 ####[facility],[address] [place] [address] 08248 BMP with eGFRon 10-13-2024 AGE 74 years Normal [facility] Comment on above: Performed By: #### 2 44366 ####[facility],[address] [place], [place] [id number] Anion gap [Moles/Vol] 11 mmol/L Normal 10 - 20 [facility] Comment on above: Performed By: #### 2 44712 ####[facility],[address] [place] [address] 74402 BMP with eGFR Normal [facility] Comment on above: Result Comment: BASI C METABOLIC PANEL Performed By: #### 2 29041 ####[facility],[address] [place], [place] [id number] Calcium [Mass/Vol] 8.6 mg/dL Normal 8.5 - 10.1 [facility] Comment on above: Performed By: #### 2 63609 ####[facility],[address] [place] [address] 00731 Chloride [Moles/Vol] 104 mmol/L Normal 98 - 107 [facility] Comment on above: Performed By: #### 2 61367 ####[facility],[address] [place] [address] 18911 CO2 [Moles/Vol] 28.9 mmol/L Normal 21.0 - 32.0 [facility] Comment on above: Performed By: #### 2 70900 ####[facility],[address] [place] [address] 48789 Creatinine [Mass/Vol] 1.40 mg/dL High 0.55 - 1.02 [facility] Comment on above: Performed By: #### 2 19840 ####[facility],[address] [place] [address] 00152 eGFR 37 ML/MINUTE Low 60 - 999 [facility] Comment on above: Performed By: #### 2 20348 ####[facility],[address] [place] [address] 63584 eGFR(AA) 44 ML/MINUTE Low 60 - 999 [facility] Comment on above: Result Comment: ACCO RDING TO THE NATIONAL KIDNEY DISEASE EDUCATION PROGRAM(NKDE), A NORMAL eGFRIS A VALUE GREATER THAN OR EQUAL TO 60 ML/MIN/1.73 SQ METERS.CHRONIC KIDNEY DISEASE: <60mL/MIN/1.73 SQ METERSKIDNEY FAILURE: <15mL/MIN/1.73 SQ METERSTHIS TEST SHOULD ONLY BE USED FOR PATIENTS 18 YEARS OF AGE AND OLDER. Performed By: #### 2 83990 ####[facility],[address] [place] [address] 61401 Glucose [Mass/Vol] 192 mg/dL High 74 - 106 [facility] Comment on above: Performed By: #### 2 59239 ####[facility],[address] [place] [address] 85097 Potassium [Moles/Vol] 4.0 mmol/L Normal 3.5 - 5.1 [facility] Comment on above: Performed By: #### 2 13662 ####[facility],[address] [place] [address] 62618 Sodium [Moles/Vol] 140 mmol/L Normal 136 - 145 [facility] Comment on above: Performed By: #### 2 33850 ####[facility],[address] [place] [address] 58628 Urea nitrogen [Mass/Vol] 17 mg/dL Normal 7 - 18 [facility] Comment on above: Performed By: #### 2 93700 ####[facility],[address] [place] [address] 64190 CBC + DIFFon 10-13-2024 ANISO 1+ Normal [facility] Comment on above: Performed By: #### 2 77693 ####[facility],[address] [place] [address] 61350 Baso # 0.04 x10EE3/UL Normal 0.00 - 0.10 [facility] Comment on above: Performed By: #### 2 30408 ####[facility],[address] [place] [address] 45201 Basophils/100 WBC (Bld) 0.6 % Normal 0.0 - 2.0 [facility] Comment on above: Performed By: #### 2 16458 ####[facility],[address] [place] [address] 63507 CBC + DIFF Normal [facility] Comment on above: Result Comment: CBC- COMPLETE BLOOD COUNT Performed By: #### 2 10205 ####[facility],[address] [place] [address] 29557 CELL COUNT 100 Normal [facility] Comment on above: Performed By: #### 2 87160 ####[facility],[address] [place] [address] 33395 EO 10.0 % High 0.0 - 7.0 [facility] Comment on above: Performed By: #### 2 82770 ####[facility],[address] [place] [address] 85964 EO # 0.59 x10EE3/UL High 0.00 - 0.50 [facility] Comment on above: Performed By: #### 2 71582 ####[facility],[address] [place] [address] 93674 Eosinophils/100 WBC (Bld) 8.8 % High 0.0 - 7.0 [facility] Comment on above: Performed By: #### 2 54941 ####[facility],[address] [place] [address] 00451 Erythrocyte distribution width (RBC) [Ratio] 19.1 % High 12.0 - 15.6 [facility] Comment on above: Performed By: #### 2 98032 ####[facility],[address] [place] [address] 86170 Hematocrit (Bld) [Volume fraction] 38.9 % Normal 34.0 - 46.0 [facility] Comment on above: Performed By: #### 2 38998 ####[facility],[address] [place] [address] Hemoglobin (Bld) [Mass/Vol] 12.5 g/dL Normal 12.0 - 16.0 [facility] Comment on above: Result Comment: REPE ATED & VERIFIED Performed By: #### 2 82203 ####[facility],[address] [place] [address] Lymph # 1.00 x10EE3/UL Normal 0.80 - 2.80 [facility] Comment on above: Performed By: #### 2 79440 ####[facility],[address] [place], [place] [id number] Lymphocytes/100 WBC (Bld) 14.8 % Low 20.0 - 45.0 [facility] Comment on above: Performed By: #### 2 63554 ####[facility],[address] [place], [place] [id number] Lymphocytes/100 WBC (Bld) 9 % Low 20 - 45 [facility] Comment on above: Performed By: #### 2 71045 ####[facility],[address] [place] [address] MANUAL DIFF SEE BELOW Normal [facility] Comment on above: Performed By: #### 2 99728 ####[facility],[address] [place] [address] 29374 MCH (RBC) [Entitic mass] 24 pg Low 27 - 33 [facility] Comment on above: Performed By: #### 2 21891 ####[facility],[address] [place], [place] [id number] MCHC 32 X10 3 Normal 32 - 36 [facility] Comment on above: Performed By: #### 2 09522 ####[facility],[address] [place] [address] MCV (RBC) [Entitic vol] 76 fL Low 80 - 99 [facility] Comment on above: Performed By: #### 2 29942 ####[facility],[address] [place] [address] MICROCYTES 1+ Normal [facility] Comment on above: Performed By: #### 2 76151 ####[facility],[address] [place] [address] Nolan # 0.72 x10EE3/UL Normal 0.20 - 1.00 [facility] Comment on above: Performed By: #### 2 38119 ####[facility],[address] [place] [address] MONOS 12 % High 0 - 10 [facility] Comment on above: Performed By: #### 2 66458 ####[facility],[address] [place] [address] MONOS % 10.8 % High 0.0 - 10.0 [facility] Comment on above: Performed By: #### 2 13400 ####[facility],[address] [place] [address] Morphology Abdon (Bld) [Interp] SEE BELOW Normal [facility] Comment on above: Performed By: #### 2 66793 ####[facility],[address] [place] [address] Neut # 4.37 x10EE3/UL Normal 1.50 - 7.10 [facility] Comment on above: Performed By: #### 2 64678 ####[facility],[address] [place] [address] Neutrophils/100 WBC (Bld) 65.0 % Normal 46.0 - 76.0 [facility] Comment on above: Performed By: #### 2 87996 ####[facility],[address] [place] [address] 55772 PLATELET 157 x10EE3/UL Normal 150 - [address] [facility] Comment on above: Performed By: #### 2 65725 ####[facility],[address] [place], [place] [id number] Platelet mean volume (Bld) [Entitic vol] 8.4 fL Normal 6.6 - 10.5 [facility] Comment on above: Result Comment: AUTO MATED DIFFERENTIAL Performed By: #### 2 43667 ####[facility],[address] [place] [address] PLT EST NORMAL Normal [facility] Comment on above: Performed By: #### 2 53767 ####[facility],[address] [place] [address] RBC 5.13 x 10EE6/UL Normal 4.10 - 5.30 [facility] Comment on above: Performed By: #### 2 46141 ####[facility],[address] [place] [address] SEGS 69 % Normal 46 - 76 [facility] Comment on above: Performed By: #### 2 82334 ####[facility],[address] [place], [place] [id number] WBC 6.7 x 10EE3/UL Normal 4.5 - 10.8 [facility] Comment on above: Performed By: #### 2 27313 ####[facility],[address] [place], [place] [id number] URINALYSIS WITH MICROSCOPYon 10-13-2024 Amorphous NONE Normal [facility] Comment on above: Performed By: #### 2 24723 ####[facility],[address] [place] [address] Bacteria 4+ Normal [facility] Comment on above: Performed By: #### 2 00463 ####[facility],[address] [place] [address] Bilirubin Ql (U) 1 Abnormal NORMAL: NEGATIVE [facility] Comment on above: Performed By: #### 2 17375 ####[facility],[address] [place] [address] 53145 Casts NONE Normal [facility] Comment on above: Performed By: #### 2 38084 ####[facility],[address] [place] [address] 37013 Clarity (U) bloody Normal NORMAL: CLEAR [facility] Comment on above: Performed By: #### 2 57453 ####[facility],[address] [place] [address] 43102 Color (U) brown Normal NORMAL: YELLOW [facility] Comment on above: Performed By: #### 2 60729 ####[facility],[address] [place] [address] 26838 Crystals LM Nom (Urine sed) NONE Normal [facility] Comment on above: Performed By: #### 2 35109 ####[facility],[address] [place] [address] 30389 Epi Cells NONE Normal [facility] Comment on above: Performed By: #### 2 56475 ####[facility],[address] [place] [address] 88176 Glucose Ql (U) 50 Abnormal NORMAL: NORMAL [facility] Comment on above: Performed By: #### 2 81055 ####[facility],[address] [place] [address] 30720 Hemoglobin Ql (U) 250 Abnormal NORMAL: NEGATIVE [facility] Comment on above: Performed By: #### 2 70481 ####[facility],[address] [place] [address] 47566 Ketone 5 Abnormal NORMAL: NEGATIVE [facility] Comment on above: Performed By: #### 2 12226 ####[facility],[address] [place] [address] 25845 Leukocytes 500 Abnormal NORMAL: NEGATIVE [facility] Comment on above: Result Comment: URIN E MICROSCOPIC Performed By: #### 2 69118 ####[facility],[address] [place] [address] 10528 Mucous NONE Normal [facility] Comment on above: Performed By: #### 2 29047 ####[facility],[address] [place] [address] 40676 Nitrite Ql (U) Positive Normal NORMAL: NEGATIVE [facility] Comment on above: Performed By: #### 2 02545 ####[facility],[address] [place] [address] pH (U) 5 [pH] Normal NORMAL: 5.0-8.0 [facility] Comment on above: Performed By: #### 2 19339 ####[facility],[address] [place] [address] Protein Ql (U) 500 Abnormal NORMAL: NEGATIVE [facility] Comment on above: Performed By: #### 2 56145 ####[facility],[address] [place] [address] Rbc TNTC Normal 0-3 / hpf [facility] Comment on above: Performed By: #### 2 33156 ####[facility],[address] [place] [address] Sp Saxton 1.020 Normal NORMAL: 1.010-1.030 [facility] Comment on above: Performed By: #### 2 78152 ####[facility],[address] [place], [place] [id number] Specimen Type Catheter Normal [facility] Comment on above: Performed By: #### 2 03739 ####[facility],[address] [place] [address] URINALYSIS WITH MICROSCOPY Normal [facility] Comment on above: Result Comment: URIN ALYSIS Performed By: #### 2 93431 ####[facility],[address],[place] [address] Urobilinog 4 Abnormal NORMAL: NORMAL [facility] Comment on above: Performed By: #### 2 62975 ####[facility],[address] [place] [address] 84406 Wbc 26-50 Normal 0-5 / hpf [facility] Comment on above: Performed By: #### 2 51425 ####[facility],[address] [place] [address] 27809 Yeast NONE Normal [facility] Comment on above: Performed By: #### 2 18629 ####[facility],[address] [place] [address] 77821 URINE CULTURE [CCL]on 2024 Bacteria identified Cx Nom (U) Normal [facility] Comment on above: Performed By: #### 2 92548 ####[facility],[address] [place] [address] 60789 BMP with eGFRon 10-12-2024 AGE 74 years Normal [facility] Comment on above: Performed By: #### 2 37596 ####[facility],[address] [place] [address] 32701 Anion gap [Moles/Vol] 13 mmol/L Normal 10 - 20 [facility] Comment on above: Performed By: #### 2 37861 ####[facility],[address] [place] [address] 16456 BMP with eGFR Normal [facility] Comment on above: Result Comment: BASI C METABOLIC PANEL Performed By: #### 2 73940 ####[facility],[address] [place] [address] 97536 Calcium [Mass/Vol] 8.4 mg/dL Low 8.5 - 10.1 [facility] Comment on above: Performed By: #### 2 49683 ####[facility],[address] [place] [address] 45006 Chloride [Moles/Vol] 104 mmol/L Normal 98 - 107 [facility] Comment on above: Performed By: #### 2 93800 ####[facility],[address] [place] [address] 25097 CO2 [Moles/Vol] 26.8 mmol/L Normal 21.0 - 32.0 [facility] Comment on above: Performed By: #### 2 31683 ####[facility],[address] [place] [address] 40976 Creatinine [Mass/Vol] 1.44 mg/dL High 0.55 - 1.02 [facility] Comment on above: Performed By: #### 2 13187 ####[facility],[address] [place] [address] 30246 eGFR 35 ML/MINUTE Low 60 - 999 [facility] Comment on above: Performed By: #### 2 40771 ####[facility],[address] [place] [address] 33766 eGFR(AA) 43 ML/MINUTE Low 60 - 999 [facility] Comment on above: Result Comment: ACCO RDING TO THE NATIONAL KIDNEY DISEASE EDUCATION PROGRAM(NKDE), A NORMAL eGFRIS A VALUE GREATER THAN OR EQUAL TO 60 ML/MIN/1.73 SQ METERS.CHRONIC KIDNEY DISEASE: <60mL/MIN/1.73 SQ METERSKIDNEY FAILURE: <15mL/MIN/1.73 SQ METERSTHIS TEST SHOULD ONLY BE USED FOR PATIENTS 18 YEARS OF AGE AND OLDER. Performed By: #### 2 23532 ####[facility],[address] [place] [address] 05502 Glucose [Mass/Vol] 136 mg/dL High 74 - 106 [facility] Comment on above: Performed By: #### 2 03891 ####[facility],[address] [place] [address] 49607 Potassium [Moles/Vol] 3.4 mmol/L Low 3.5 - 5.1 [facility] Comment on above: Performed By: #### 2 31555 ####[facility],[address] [place], [place] [id number] Sodium [Moles/Vol] 140 mmol/L Normal 136 - 145 [facility] Comment on above: Performed By: #### 2 89760 ####[facility],[address] [place] [address] 04477 Urea nitrogen [Mass/Vol] 19 mg/dL High 7 - 18 [facility] Comment on above: Performed By: #### 2 28530 ####[facility],[address] [place] [address] 39578 BMP with eGFRon 10-11-2024 AGE 74 years Normal [facility] Comment on above: Performed By: #### 2 67308 ####[facility],[address] [place], [place] [id number] Anion gap [Moles/Vol] 14 mmol/L Normal 10 - 20 [facility] Comment on above: Performed By: #### 2 85650 ####[facility],[address] [place], [place] [id number] BMP with eGFR Normal [facility] Comment on above: Result Comment: BASI C METABOLIC PANEL Performed By: #### 2 18906 ####[facility],[address] [place] [address] 73322 Calcium [Mass/Vol] 8.9 mg/dL Normal 8.5 - 10.1 [facility] Comment on above: Performed By: #### 2 68270 ####[facility],[address] [place] [address] 21572 Chloride [Moles/Vol] 101 mmol/L Normal 98 - 107 [facility] Comment on above: Performed By: #### 2 10395 ####[facility],[address] [place] [address] 33338 CO2 [Moles/Vol] 25.6 mmol/L Normal 21.0 - 32.0 [facility] Comment on above: Performed By: #### 2 01627 ####[facility],[address] [place] [address] 14036 Creatinine [Mass/Vol] 1.54 mg/dL High 0.55 - 1.02 [facility] Comment on above: Performed By: #### 2 42024 ####[facility],[address] [place] [address] 47033 eGFR 33 ML/MINUTE Low 60 - 999 [facility] Comment on above: Performed By: #### 2 79606 ####[facility],[address] [place] [address] 08659 eGFR(AA) 40 ML/MINUTE Low 60 - 999 [facility] Comment on above: Result Comment: ACCO RDING TO THE NATIONAL KIDNEY DISEASE EDUCATION PROGRAM(NKDE), A NORMAL eGFRIS A VALUE GREATER THAN OR EQUAL TO 60 ML/MIN/1.73 SQ METERS.CHRONIC KIDNEY DISEASE: <60mL/MIN/1.73 SQ METERSKIDNEY FAILURE: <15mL/MIN/1.73 SQ METERSTHIS TEST SHOULD ONLY BE USED FOR PATIENTS 18 YEARS OF AGE AND OLDER. Performed By: #### 2 23623 ####[facility],[address] [place] [address] 66198 Glucose [Mass/Vol] 216 mg/dL High 74 - 106 [facility] Comment on above: Performed By: #### 2 87234 ####[facility],[address] [place] [address] 23382 Potassium [Moles/Vol] 4.0 mmol/L Normal 3.5 - 5.1 [facility] Comment on above: Result Comment: VERI FIED BY REPEAT ANALYSIS Performed By: #### 2 74373 ####[facility],[address] [place] [address] 58610 Sodium [Moles/Vol] 137 mmol/L Normal 136 - 145 [facility] Comment on above: Performed By: #### 2 64374 ####[facility],[address] [place] [address] 53715 Urea nitrogen [Mass/Vol] 21 mg/dL High 7 - 18 [facility] Comment on above: Performed By: #### 2 66008 ####[facility],[address] [place] [address] CBC + DIFFon 10-11-2024 Baso # 0.03 x10EE3/UL Normal 0.00 - 0.10 [facility] Comment on above: Performed By: #### 2 89576 ####[facility],[address] [place] [address] Basophils/100 WBC (Bld) 0.4 % Normal 0.0 - 2.0 [facility] Comment on above: Performed By: #### 2 69752 ####[facility],[address] [place] [address] CBC + DIFF Normal [facility] Comment on above: Result Comment: CBC- COMPLETE BLOOD COUNT Performed By: #### 2 38635 ####[facility],[address] [place] [address] EO # 0.60 x10EE3/UL High 0.00 - 0.50 [facility] Comment on above: Performed By: #### 2 88497 ####[facility],[address] [place] [address] 90428 Eosinophils/100 WBC (Bld) 7.8 % High 0.0 - 7.0 [facility] Comment on above: Performed By: #### 2 23784 ####[facility],[address] [place], [place] [id number] Erythrocyte distribution width (RBC) [Ratio] 19.1 % High 12.0 - 15.6 [facility] Comment on above: Performed By: #### 2 38556 ####[facility],[address] [place] [address] Hematocrit (Bld) [Volume fraction] 46.5 % High 34.0 - 46.0 [facility] Comment on above: Performed By: #### 2 46621 ####[facility],[address] [place] [address] Hemoglobin (Bld) [Mass/Vol] 15.2 g/dL Normal 12.0 - 16.0 [facility] Comment on above: Performed By: #### 2 22467 ####[facility],[address] [place] [address] Lymph # 1.36 x10EE3/UL Normal 0.80 - 2.80 [facility] Comment on above: Performed By: #### 2 53099 ####[facility],[address] [place] [address] Lymphocytes/100 WBC (Bld) 17.6 % Low 20.0 - 45.0 [facility] Comment on above: Performed By: #### 2 40209 ####[facility],[address] [place] [address] MANUAL DIFF N/A Normal [facility] Comment on above: Performed By: #### 2 81477 ####[facility],[address] [place], [place] [id number] MCH (RBC) [Entitic mass] 25 pg Low 27 - 33 [facility] Comment on above: Performed By: #### 2 34844 ####[facility],[address] [place], [place] [id number] MCHC 33 X10 3 Normal 32 - 36 [facility] Comment on above: Performed By: #### 2 27833 ####[facility],[address] [place] [address] 81867 MCV (RBC) [Entitic vol] 75 fL Low 80 - 99 [facility] Comment on above: Performed By: #### 2 90680 ####[facility],[address] [place] [address] 49729 Nolan # 0.67 x10EE3/UL Normal 0.20 - 1.00 [facility] Comment on above: Performed By: #### 2 11047 ####[facility],[address] [place] [address] 27567 MONOS % 8.7 % Normal 0.0 - 10.0 [facility] Comment on above: Performed By: #### 2 46642 ####[facility],[address] [place] [address] 16436 Morphology Abdon (Bld) [Interp] N/A Normal [facility] Comment on above: Performed By: #### 2 21081 ####[facility],[address] [place] [address] 38603 Neut # 5.03 x10EE3/UL Normal 1.50 - 7.10 [facility] Comment on above: Performed By: #### 2 36692 ####[facility],[address] [place] [address] 77782 Neutrophils/100 WBC (Bld) 65.4 % Normal 46.0 - 76.0 [facility] Comment on above: Performed By: #### 2 49182 ####[facility],[address] [place] [address] 56392 PLATELET 193 x10EE3/UL Normal 150 - [address] [facility] Comment on above: Performed By: #### 2 80721 ####[facility],[address] [place] [address] 10719 Platelet mean volume (Bld) [Entitic vol] 8.3 fL Normal 6.6 - 10.5 [facility] Comment on above: Result Comment: AUTO MATED DIFFERENTIAL Performed By: #### 2 27875 ####[facility],[address] [place] [address] 69703 RBC 6.22 x 10EE6/UL High 4.10 - 5.30 [facility] Comment on above: Performed By: #### 2 70487 ####[facility],[address] [place] [address] 73368 WBC 7.7 x 10EE3/UL Normal 4.5 - 10.8 [facility] Comment on above: Performed By: #### 2 08577 ####[facility],[address] [place] [address] 07270 CMP with eGFRon 10-11-2024 AGE 74 years Normal [facility] Comment on above: Performed By: #### 2 98790 ####[facility],[address] [place] [address] 36525 Albumin [Mass/Vol] 2.5 g/dL Low 3.4 - 5.0 [facility] Comment on above: Performed By: #### 2 39175 ####[facility],[address] [place] [address] 89601 Albumin/Globulin [Mass ratio] 0.5 {ratio} Low 0.9 - 1.6 [facility] Comment on above: Performed By: #### 2 27237 ####[facility],[address] [place] [address] 19098 ALK PHOS 117 U/L High 46 - 116 [facility] Comment on above: Performed By: #### 2 13365 ####[facility],[address] [place] [address] 02651 ALT [Catalytic activity/Vol] 24 U/L Normal 16 - 63 [facility] Comment on above: Performed By: #### 2 29722 ####[facility],[address] [place] [address] 71151 Anion gap [Moles/Vol] 10 mmol/L Normal 10 - 20 [facility] Comment on above: Performed By: #### 2 33660 ####[facility],[address] [place] [address] 75553 AST [Catalytic activity/Vol] 21 U/L Normal 13 - 39 [facility] Comment on above: Performed By: #### 2 41143 ####[facility],[address] [place] [address] 03162 B/C RATIO 13 ratio Normal 0 - 30 [facility] Comment on above: Performed By: #### 2 40620 ####[facility],[address] [place] [address] 02459 Bilirubin [Mass/Vol] 0.7 mg/dL Normal 0.2 - 1.0 [facility] Comment on above: Performed By: #### 2 92561 ####[facility],[address] [place] [address] 41337 Calcium [Mass/Vol] 8.7 mg/dL Normal 8.5 - 10.1 [facility] Comment on above: Performed By: #### 2 92236 ####[facility],[address] [place] [address] 56431 Chloride [Moles/Vol] 103 mmol/L Normal 98 - 107 [facility] Comment on above: Performed By: #### 2 01143 ####[facility],[address] [place] [address] 60162 CMP with eGFR Normal [facility] Comment on above: Result Comment: COMP REHENSIVE METABOLIC PANEL Performed By: #### 2 91281 ####[facility],[address] [place] [address] 62977 CO2 [Moles/Vol] 30.3 mmol/L Normal 21.0 - 32.0 [facility] Comment on above: Performed By: #### 2 59871 ####[facility],[address] [place] [address] 02515 Creatinine [Mass/Vol] 1.65 mg/dL High 0.55 - 1.02 [facility] Comment on above: Performed By: #### 2 38033 ####[facility],[address] [place] [address] 73781 eGFR 30 ML/MINUTE Low 60 - 999 [facility] Comment on above: Performed By: #### 2 36383 ####[facility],[address] [place] [address] 37591 eGFR(AA) 37 ML/MINUTE Low 60 - 999 [facility] Comment on above: Result Comment: ACCO RDING TO THE NATIONAL KIDNEY DISEASE EDUCATION PROGRAM(NKDE), A NORMAL eGFRIS A VALUE GREATER THAN OR EQUAL TO 60 ML/MIN/1.73 SQ METERS.CHRONIC KIDNEY DISEASE: <60mL/MIN/1.73 SQ METERSKIDNEY FAILURE: <15mL/MIN/1.73 SQ METERSTHIS TEST SHOULD ONLY BE USED FOR PATIENTS 18 YEARS OF AGE AND OLDER. Performed By: #### 2 32198 ####[facility],[address] [place] [address] 17554 Globulin (S) [Mass/Vol] 4.8 g/dL High 1.5 - 3.8 [facility] Comment on above: Performed By: #### 2 45330 ####[facility],[address] [place] [address] 64171 Glucose [Mass/Vol] 192 mg/dL High 74 - 106 [facility] Comment on above: Performed By: #### 2 08082 ####[facility],[address] [place] [address] 91639 Potassium [Moles/Vol] 3.0 mmol/L Low 3.5 - 5.1 [facility] Comment on above: Performed By: #### 2 67128 ####[facility],[address] [place] [address] 18710 Protein [Mass/Vol] 7.3 g/dL Normal 6.4 - 8.2 [facility] Comment on above: Performed By: #### 2 70912 ####[facility],[address] [place] [address] 57441 Sodium [Moles/Vol] 140 mmol/L Normal 136 - 145 [facility] Comment on above: Performed By: #### 2 98533 ####[facility],[address] [place] [address] 83514 Urea nitrogen [Mass/Vol] 22 mg/dL High 7 - 18 [facility] Comment on above: Performed By: #### 2 09616 ####[facility],[address] [place] [address] 95484 LACTATEon 10-11-2024 Lactate [Moles/Vol] 1.5 mmol/L Normal 0.4 - 2.0 [facility] Comment on above: Performed By: #### 2 08039 ####[facility],[address] [place] [address] T4-FREE (FREE THYROXINE)on 0 10-11-2024 Free T4 [Mass/Vol] 1.62 ng/dL High 0.76 - 1.46 [facility] Comment on above: Result Comment: P otential of falsely elevated results when biotin concentrations are > 10ng/mL. Performed By: #### 2 31832 ####[place] [id number] Free T4 [Mass/Vol] 1.58 ng/dL High 0.76 - 1.46 [facility] Comment on above: Result Comment: P otential of falsely elevated results when biotin concentrations are > 10ng/mL. Performed By: #### 2 31187 ####[address] [address] TROPONINon 10-11-2024 HS TROPONIN 21.9 pg/mL Normal 0.0 - 51.4 [facility] Comment on above: Performed By: #### 2 27987 ####[address] [address] TSHon 10-11-2024 TSH Qn 6.17 m[IU]/L High 0.35 - 3.[address] [facility] Comment on above: Performed By: #### 2 62444 ####[address] [address] URINALYSISon 10-11-2024 Amorphous NONE Normal [facility] Comment on above: Performed By: #### 2 34130 ####[address] [address] Bacteria TRACE Normal [facility] Comment on above: Performed By: #### 2 73779 ####[facility],[address] [place] [address] 11256 Bilirubin Ql (U) Negative Normal NORMAL: NEGATIVE [facility] Comment on above: Performed By: #### 2 27179 ####[facility],[address] [place] [address] 91412 Casts NONE Normal [facility] Comment on above: Performed By: #### 2 87652 ####[facility],[address] [place] [address] 92689 Clarity (U) clear Normal NORMAL: CLEAR [facility] Comment on above: Performed By: #### 2 21816 ####[facility],[address] [place] [address] 26559 Color (U) bernard Normal NORMAL: YELLOW [facility] Comment on above: Performed By: #### 2 67832 ####[facility],[address] [place] [address] 34651 Crystals LM Nom (Urine sed) NONE Normal [facility] Comment on above: Performed By: #### 2 92663 ####[facility],[address] [place] [address] 99318 Epi Cells FEW Normal [facility] Comment on above: Performed By: #### 2 20895 ####[facility],[address] [place] [address] 87271 Glucose Ql (U) 50 Abnormal NORMAL: NORMAL [facility] Comment on above: Performed By: #### 2 30346 ####[facility],[address] [place] [address] 26043 Hemoglobin Ql (U) 50 Abnormal NORMAL: NEGATIVE [facility] Comment on above: Performed By: #### 2 88425 ####[facility],[address] [place] [address] 68365 Ketone Negative Normal NORMAL: NEGATIVE [facility] Comment on above: Performed By: #### 2 41250 ####[facility],[address] [place] [address] Leukocytes Negative Normal NORMAL: NEGATIVE [facility] Comment on above: Performed By: #### 2 32229 ####[facility],[address] [place] [address] Mucous NONE Normal [facility] Comment on above: Performed By: #### 2 12914 ####[facility],[address] [place] [address] Nitrite Ql (U) Negative Normal NORMAL: NEGATIVE [facility] Comment on above: Performed By: #### 2 57330 ####[facility],[address] [place] [address] pH (U) 6 [pH] Normal NORMAL: 5.0-8.0 [facility] Comment on above: Performed By: #### 2 80520 ####[facility],[address] [place] [address] Protein Ql (U) 500 Abnormal NORMAL: NEGATIVE [facility] Comment on above: Performed By: #### 2 64598 ####[facility],[address] [place] [address] Rbc 0-5 Normal 0-3/hpf [facility] Comment on above: Performed By: #### 2 22691 ####[facility],[address] [place] [address] Sp Saxton 1.025 Normal NORMAL: 1.010-1.030 [facility] Comment on above: Performed By: #### 2 59960 ####[facility],[address] [place] [address] Specimen Type R Normal [facility] Comment on above: Performed By: #### 2 29735 ####[facility],[address] [place] [address] Urinalysis dipstick W Reflex Microscopic panel (U) SEE BELOW Normal [facility] Comment on above: Result Comment: MICR OSCOPIC Performed By: #### 2 40084 ####[facility],[address] [place] [address] 15870 Urobilinog 1 Abnormal NORMAL: NORMAL [facility] Comment on above: Performed By: #### 2 31719 ####[facility],[address] [place] [address] 75097 Wbc NONE Normal 0-5/hpf [facility] Comment on above: Performed By: #### 2 77760 ####[facility],[address] [place] [address] 97154 Yeast NONE Normal [facility] Comment on above: Performed By: #### 2 17855 ####[facility],[address] [place] [address] 62598 BMP with eGFR DAILYon 2024 AGE 74 years Normal [facility] Comment on above: Performed By: #### 2 41732 ####[facility],[address] [place] [address] 78426 Anion gap [Moles/Vol] 10 mmol/L Normal 10 - 20 [facility] Comment on above: Performed By: #### 2 13860 ####[facility],[address] [place] [address] 81429 BMP with eGFR DAILY Normal [facility] Comment on above: Result Comment: BASI C METABOLIC PANEL Performed By: #### 2 30330 ####[facility],[address] [place] [address] 41241 Calcium [Mass/Vol] 8.7 mg/dL Normal 8.5 - 10.1 [facility] Comment on above: Performed By: #### 2 94079 ####[facility],[address] [place] [address] 97005 Chloride [Moles/Vol] 102 mmol/L Normal 98 - 107 [facility] Comment on above: Performed By: #### 2 54472 ####[facility],[address] [place] [address] 40595 CO2 [Moles/Vol] 28.8 mmol/L Normal 21.0 - 32.0 [facility] Comment on above: Performed By: #### 2 16975 ####[facility],[address] [place] [address] 06678 Creatinine [Mass/Vol] 1.69 mg/dL High 0.55 - 1.02 [facility] Comment on above: Performed By: #### 2 07005 ####[facility],[address] [place] [address] 73646 eGFR 30 ML/MINUTE Low 60 - 999 [facility] Comment on above: Performed By: #### 2 75509 ####[facility],[address] [place] [address] 02535 eGFR(AA) 36 ML/MINUTE Low 60 - 999 [facility] Comment on above: Result Comment: ACCO RDING TO THE NATIONAL KIDNEY DISEASE EDUCATION PROGRAM(NKDE), A NORMAL eGFRIS A VALUE GREATER THAN OR EQUAL TO 60 ML/MIN/1.73 SQ METERS.CHRONIC KIDNEY DISEASE: <60mL/MIN/1.73 SQ METERSKIDNEY FAILURE: <15mL/MIN/1.73 SQ METERSTHIS TEST SHOULD ONLY BE USED FOR PATIENTS 18 YEARS OF AGE AND OLDER. Performed By: #### 2 32563 ####[facility],[address] [place] [address] 18056 Glucose [Mass/Vol] 144 mg/dL High 74 - 106 [facility] Comment on above: Performed By: #### 2 07877 ####[facility],[address] [place] [address] 49173 Potassium [Moles/Vol] 4.1 mmol/L Normal 3.5 - 5.1 [facility] Comment on above: Performed By: #### 2 53321 ####[facility],[address] [place] [address] 46410 Sodium [Moles/Vol] 137 mmol/L Normal 136 - 145 [facility] Comment on above: Performed By: #### 2 63320 ####[facility],[address] [place] [address] 83871 Urea nitrogen [Mass/Vol] 20 mg/dL High 7 - 18 [facility] Comment on above: Performed By: #### 2 22509 ####[facility],[address] [place] [address] 51068 BMP with eGFRon 09-17-2024 AGE 74 years Normal [facility] Comment on above: Performed By: #### 2 95401 ####[facility],[address] [place] [address] 31692 Anion gap [Moles/Vol] 11 mmol/L Normal 10 - 20 [facility] Comment on above: Performed By: #### 2 95174 ####[facility],[address] [place] [address] 68938 BMP with eGFR Normal [facility] Comment on above: Result Comment: BASI C METABOLIC PANEL Performed By: #### 2 81320 ####[facility],[address] [place] [address] 72300 Calcium [Mass/Vol] 9.1 mg/dL Normal 8.5 - 10.1 [facility] Comment on above: Performed By: #### 2 77041 ####[facility],[address] [place] [address] 10393 Chloride [Moles/Vol] 105 mmol/L Normal 98 - 107 [facility] Comment on above: Performed By: #### 2 00125 ####[facility],[address] [place] [address] 13801 CO2 [Moles/Vol] 25.0 mmol/L Normal 21.0 - 32.0 [facility] Comment on above: Performed By: #### 2 61313 ####[facility],[address] [place] [address] 27454 Creatinine [Mass/Vol] 1.40 mg/dL High 0.55 - 1.02 [facility] Comment on above: Performed By: #### 2 89645 ####[facility],[address] [place] [address] 49853 eGFR 37 ML/MINUTE Low 60 - 999 [facility] Comment on above: Performed By: #### 2 07533 ####[facility],[address] [place] [place] [address] 66218 eGFR(AA) 44 ML/MINUTE Low 60 - 999 [facility] Comment on above: Result Comment: ACCO RDING TO THE NATIONAL KIDNEY DISEASE EDUCATION PROGRAM(NKDE), A NORMAL eGFRIS A VALUE GREATER THAN OR EQUAL TO 60 ML/MIN/1.73 SQ METERS.CHRONIC KIDNEY DISEASE: <60mL/MIN/1.73 SQ METERSKIDNEY FAILURE: <15mL/MIN/1.73 SQ METERSTHIS TEST SHOULD ONLY BE USED FOR PATIENTS 18 YEARS OF AGE AND OLDER. Performed By: #### 2 [id number] ####[facility],[address] [place] [address] 42130 Glucose [Mass/Vol] 129 mg/dL High 74 - 106 [facility] Comment on above: Performed By: #### 2 96322 ####[facility],[address] [place] [address] 80495 Potassium [Moles/Vol] 4.4 mmol/L Normal 3.5 - 5.1 [facility] Comment on above: Performed By: #### 2 22938 ####[facility],[address] [place] [address] 52201 Sodium [Moles/Vol] 137 mmol/L Normal 136 - 145 [facility] Comment on above: Performed By: #### 2 93976 ####[address] [address] Urea nitrogen [Mass/Vol] 18 mg/dL Normal 7 - 18 [facility] Comment on above: Performed By: #### 2 83486 ####[facility],[address] [place] [address] 27337 CBC + DIFFon 09-16-2024 Baso # 0.02 x10EE3/UL Normal 0.00 - 0.10 [facility] Comment on above: Performed By: #### 2 67823 ####[facility],[address] [place], [place] [id number] Basophils/100 WBC (Bld) 0.4 % Normal 0.0 - 2.0 [facility] Comment on above: Performed By: #### 2 21294 ####[facility],[address] [place] [address] CBC + DIFF Normal [facility] Comment on above: Result Comment: CBC- COMPLETE BLOOD COUNT Performed By: #### 2 57981 ####[facility],[address] [place] [address] EO # 0.35 x10EE3/UL Normal 0.00 - 0.50 [facility] Comment on above: Performed By: #### 2 06029 ####[facility],[address] [place], [place] [id number] Eosinophils/100 WBC (Bld) 5.9 % Normal 0.0 - 7.0 [facility] Comment on above: Performed By: #### 2 17611 ####[facility],[address] [place] [address] Erythrocyte distribution width (RBC) [Ratio] 18.5 % High 12.0 - 15.6 [facility] Comment on above: Performed By: #### 2 78300 ####[facility],[address] [place] [address] Hematocrit (Bld) [Volume fraction] 39.0 % Normal 34.0 - 46.0 [facility] Comment on above: Performed By: #### 2 52795 ####[facility],[address] [place], [place] [id number] Hemoglobin (Bld) [Mass/Vol] 13.0 g/dL Normal 12.0 - 16.0 [facility] Comment on above: Performed By: #### 2 45730 ####[facility],[address] [place] [address] Lymph # 0.82 x10EE3/UL Normal 0.80 - 2.80 [facility] Comment on above: Performed By: #### 2 43409 ####[facility],[address] [place], [place] [id number] Lymphocytes/100 WBC (Bld) 13.9 % Low 20.0 - 45.0 [facility] Comment on above: Performed By: #### 2 95734 ####[facility],[address] [place], [place] [id number] MANUAL DIFF N/A Normal [facility] Comment on above: Performed By: #### 2 04495 ####[facility],[address] [place], [place] [id number] MCH (RBC) [Entitic mass] 26 pg Low 27 - 33 [facility] Comment on above: Performed By: #### 2 98854 ####[facility],[address] [place] [address] MCHC 33 X10 3 Normal 32 - 36 [facility] Comment on above: Performed By: #### 2 24666 ####[facility],[address] [place] [address] 52082 MCV (RBC) [Entitic vol] 77 fL Low 80 - 99 [facility] Comment on above: Performed By: #### 2 80108 ####[facility],[address] [place] [address] 72543 Nolan # 0.48 x10EE3/UL Normal 0.20 - 1.00 [facility] Comment on above: Performed By: #### 2 17704 ####[facility],[address] [place] [address] 50106 MONOS % 8.2 % Normal 0.0 - 10.0 [facility] Comment on above: Performed By: #### 2 25925 ####[facility],[address] [place] [address] 35393 Morphology Abdon (Bld) [Interp] N/A Normal [facility] Comment on above: Performed By: #### 2 56088 ####[facility],[address] [place] [address] 92493 Neut # 4.20 x10EE3/UL Normal 1.50 - 7.10 [facility] Comment on above: Performed By: #### 2 09630 ####[facility],[address] [place] [address] 92406 Neutrophils/100 WBC (Bld) 71.5 % Normal 46.0 - 76.0 [facility] Comment on above: Performed By: #### 2 26329 ####[facility],[address] [place] [address] 02955 PLATELET 270 x10EE3/UL Normal 150 - [address] [facility] Comment on above: Performed By: #### 2 04782 ####[facility],[address] [place] [address] 70209 Platelet mean volume (Bld) [Entitic vol] 9.3 fL Normal 6.6 - 10.5 [facility] Comment on above: Result Comment: AUTO MATED DIFFERENTIAL Performed By: #### 2 48899 ####[facility],[address] [place] [address] 61798 RBC 5.08 x 10EE6/UL Normal 4.10 - 5.30 [facility] Comment on above: Performed By: #### 2 72729 ####[facility],[address] [place] [address] 30728 WBC 5.9 x 10EE3/UL Normal 4.5 - 10.8 [facility] Comment on above: Performed By: #### 2 18179 ####[facility],[address] [place] [address] 01066 CHEST 1 VIEWon 09-16-2024 CHEST 1 VIEW Normal [facility] CMP with eGFRon 09-16-2024 AGE 74 years Normal [facility] Comment on above: Performed By: #### 2 96250 ####[facility],[address] [place] [address] 49478 Albumin [Mass/Vol] 2.6 g/dL Low 3.4 - 5.0 [facility] Comment on above: Performed By: #### 2 17969 ####[facility],[address] [place] [address] 10000 Albumin/Globulin [Mass ratio] 0.5 {ratio} Low 0.9 - 1.6 [facility] Comment on above: Performed By: #### 2 89531 ####[facility],[address] [place] [address] 77767 ALK PHOS 142 U/L High 46 - 116 [facility] Comment on above: Performed By: #### 2 32703 ####[facility],[address] [place] [address] 79465 ALT [Catalytic activity/Vol] 29 U/L Normal 16 - 63 [facility] Comment on above: Performed By: #### 2 50934 ####[facility],[address] [place] [address] 85959 Anion gap [Moles/Vol] 14 mmol/L Normal 10 - 20 [facility] Comment on above: Performed By: #### 2 86825 ####[facility],[address] [place] [address] 77465 AST [Catalytic activity/Vol] 18 U/L Normal 13 - 39 [facility] Comment on above: Performed By: #### 2 83184 ####[facility],[address] [place] [address] 83713 B/C RATIO 13 ratio Normal 0 - 30 [facility] Comment on above: Performed By: #### 2 25999 ####[facility],[address] [place] [address] 25431 Bilirubin [Mass/Vol] 0.7 mg/dL Normal 0.2 - 1.0 [facility] Comment on above: Performed By: #### 2 92898 ####[facility],[address] [place] [address] 17889 Calcium [Mass/Vol] 9.5 mg/dL Normal 8.5 - 10.1 [facility] Comment on above: Performed By: #### 2 83714 ####[facility],[address] [place] [address] 54673 Chloride [Moles/Vol] 101 mmol/L Normal 98 - 107 [facility] Comment on above: Performed By: #### 2 93097 ####[facility],[address] [place], [place] [id number] CMP with eGFR Normal [facility] Comment on above: Result Comment: COMP REHENSIVE METABOLIC PANEL Performed By: #### 2 51649 ####[facility],[address] [place] [address] 03027 CO2 [Moles/Vol] 25.5 mmol/L Normal 21.0 - 32.0 [facility] Comment on above: Performed By: #### 2 52599 ####[facility],[address] [place] [address] 34802 Creatinine [Mass/Vol] 1.44 mg/dL High 0.55 - 1.02 [facility] Comment on above: Performed By: #### 2 88106 ####[facility],[address] [place] [address] 06736 eGFR 35 ML/MINUTE Low 60 - 999 [facility] Comment on above: Performed By: #### 2 10039 ####[facility],[address] [place] [address] 75521 eGFR(AA) 43 ML/MINUTE Low 60 - 999 [facility] Comment on above: Result Comment: ACCO RDING TO THE NATIONAL KIDNEY DISEASE EDUCATION PROGRAM(NKDE), A NORMAL eGFRIS A VALUE GREATER THAN OR EQUAL TO 60 ML/MIN/1.73 SQ METERS.CHRONIC KIDNEY DISEASE: <60mL/MIN/1.73 SQ METERSKIDNEY FAILURE: <15mL/MIN/1.73 SQ METERSTHIS TEST SHOULD ONLY BE USED FOR PATIENTS 18 YEARS OF AGE AND OLDER. Performed By: #### 2 90429 ####[facility],[address] [place] [address] 80487 Globulin (S) [Mass/Vol] 5.4 g/dL High 1.5 - 3.8 [facility] Comment on above: Performed By: #### 2 71152 ####[facility],[address] [place] [address] 84290 Glucose [Mass/Vol] 238 mg/dL High 74 - 106 [facility] Comment on above: Performed By: #### 2 20007 ####[address] [address] Potassium [Moles/Vol] 4.4 mmol/L Normal 3.5 - 5.1 [facility] Comment on above: Performed By: #### 2 57578 ####[facility],[address] [place] [address] 34706 Protein [Mass/Vol] 8.0 g/dL Normal 6.4 - 8.2 [facility] Comment on above: Performed By: #### 2 34627 ####[facility],[address] [place] [address] 61256 Sodium [Moles/Vol] 136 mmol/L Normal 136 - 145 [facility] Comment on above: Performed By: #### 2 99893 ####[facility],[address] [place] [address] 06235 Urea nitrogen [Mass/Vol] 19 mg/dL High 7 - 18 [facility] Comment on above: Performed By: #### 2 91111 ####[facility],[address] [place] [address] BRAIN W/O CONTRASTon 08-20 CT BRAIN W/O CONTRAST Normal [facility] ED MED ADMINISTRATION DETAIL on 09-16-2024 ED MED ADMINISTRATION DETAIL Normal [facility] ED NURSES CLINICAL NOTEon ED NURSES CLINICAL NOTE Normal [facility] ED ORDER SHEET (CPOE ONLY)on 09-16-2024 ED ORDER SHEET (CPOE ONLY) Normal [facility] ED PHYSICIAN CLINICAL REPORT on 09-16-2024 ED PHYSICIAN CLINICAL REPORT Normal [facility] ED SUPER BILLon 09-16-2024 ED SUPER BILL Normal [facility] ED VISIT SUMMARYon ED VISIT SUMMARY Normal [facility] ED VITALS FLOW SHEETon 09-16 ED VITALS FLOW SHEET Normal [facility] TROPONINon 09-16-2024 HS TROPONIN 35.4 pg/mL Normal 0.0 - 51.4 [facility] Comment on above: Performed By: #### 2 15152 ####[facility],[address] [place] [address] URINALYSISon 09-16-2024 Amorphous NONE Normal [facility] Comment on above: Performed By: #### 2 82209 ####[facility],[address] [place] [address] Bacteria 3+ Normal [facility] Comment on above: Performed By: #### 2 33926 ####[facility],[address] [place] [address] Bilirubin Ql (U) Negative Normal NORMAL: NEGATIVE [facility] Comment on above: Performed By: #### 2 69445 ####[facility],[address] [place] [address] Casts NONE Normal [facility] Comment on above: Performed By: #### 2 49485 ####[facility],[address] [place] [address] Clarity (U) CLEAR Normal NORMAL: CLEAR [facility] Comment on above: Performed By: #### 2 33052 ####[facility],[address] [place] [address] 40020 Color (U) BERNARD Normal NORMAL: YELLOW [facility] Comment on above: Performed By: #### 2 34418 ####[facility],[address] [place] [address] 26259 Crystals LM Nom (Urine sed) NONE Normal [facility] Comment on above: Performed By: #### 2 82349 ####[facility],[address] [place] [address] 29295 Epi Cells MANY Normal [facility] Comment on above: Performed By: #### 2 42891 ####[facility],[address] [place] [address] 41129 Glucose Ql (U) 100 Abnormal NORMAL: NORMAL [facility] Comment on above: Performed By: #### 2 46106 ####[facility],[address] [place] [address] 08562 Hemoglobin Ql (U) 25 Abnormal NORMAL: NEGATIVE [facility] Comment on above: Performed By: #### 2 14229 ####[facility],[address] [place] [address] 83756 Ketone Negative Normal NORMAL: NEGATIVE [facility] Comment on above: Performed By: #### 2 47572 ####[facility],[address] [place] [address] 86211 Leukocytes 25 Abnormal NORMAL: NEGATIVE [facility] Comment on above: Performed By: #### 2 25722 ####[facility],[address] [place] [address] 30972 Mucous NONE Normal [facility] Comment on above: Performed By: #### 2 17111 ####[facility],[address] [place] [address] 12934 Nitrite Ql (U) Negative Normal NORMAL: NEGATIVE [facility] Comment on above: Performed By: #### 2 07965 ####[facility],[address] [place] [address] pH (U) 5.0 [pH] Normal NORMAL: 5.0-8.0 [facility] Comment on above: Performed By: #### 2 23393 ####[facility],[address] [place] [address] Protein Ql (U) 500 Abnormal NORMAL: NEGATIVE [facility] Comment on above: Performed By: #### 2 11598 ####[facility],[address] [place] [address] Rbc 0-5 Normal 0-3/hpf [facility] Comment on above: Performed By: #### 2 76851 ####[place] [address] Sp [place] 1.025 Normal NORMAL: 1.010-1.030 [facility] Comment on above: Performed By: #### 2 59599 ####[place] [address] Specimen Type UNSPECIFIED Normal [facility] Comment on above: Performed By: #### 2 03206 ####[facility],[address] [place] [address] Urinalysis dipstick W Reflex Microscopic panel (U) SEE BELOW Normal [facility] Comment on above: Result Comment: MICR OSCOPIC Performed By: #### 2 15510 ####[place] [address] Urobilinog NORMAL Normal NORMAL: NORMAL [facility] Comment on above: Performed By: #### 2 50472 ####[place] [address] Wbc 11-15 Normal 0-5/hpf [facility] Comment on above: Performed By: #### 2 43774 ####[place] [address] Yeast NONE Normal [facility] Comment on above: Performed By: #### 2 76783 ####[facility],[address] [place] [address] 38519 PULMONARY FUNCTION STUDYon 0 08-31-2024 PULMONARY FUNCTION STUDY Normal [facility] BMP with eGFRon 08-16-2024 AGE 74 years Normal [facility] Comment on above: Performed By: #### 2 58244 ####[facility],[address] [place] [address] 18258 Anion gap [Moles/Vol] 10 mmol/L Normal 10 - 20 [facility] Comment on above: Performed By: #### 2 49969 ####[facility],[address] [place] [address] 90696 BMP with eGFR Normal [facility] Comment on above: Result Comment: BASI C METABOLIC PANEL Performed By: #### 2 75316 ####[facility],[address] [place] [address] 41844 Calcium [Mass/Vol] 8.8 mg/dL Normal 8.5 - 10.1 [facility] Comment on above: Performed By: #### 2 87976 ####[facility],[address] [place] [address] 65570 Chloride [Moles/Vol] 107 mmol/L Normal 98 - 107 [facility] Comment on above: Performed By: #### 2 30626 ####[facility],[address] [place] [address] 88352 CO2 [Moles/Vol] 29.1 mmol/L Normal 21.0 - 32.0 [facility] Comment on above: Performed By: #### 2 87016 ####[facility],[address] [place] [address] 31309 Creatinine [Mass/Vol] 1.34 mg/dL High 0.55 - 1.02 [facility] Comment on above: Performed By: #### 2 23503 ####[facility],[address] [place] [address] 93378 eGFR 39 ML/MINUTE Low 60 - 999 [facility] Comment on above: Performed By: #### 2 68896 ####[facility],[address] [place] [address] 57078 eGFR(AA) 47 ML/MINUTE Low 60 - 999 [facility] Comment on above: Result Comment: ACCO RDING TO THE NATIONAL KIDNEY DISEASE EDUCATION PROGRAM(NKDE), A NORMAL eGFRIS A VALUE GREATER THAN OR EQUAL TO 60 ML/MIN/1.73 SQ METERS.CHRONIC KIDNEY DISEASE: <60mL/MIN/1.73 SQ METERSKIDNEY FAILURE: <15mL/MIN/1.73 SQ METERSTHIS TEST SHOULD ONLY BE USED FOR PATIENTS 18 YEARS OF AGE AND OLDER. Performed By: #### 2 71406 ####[facility],[address] [place] [address] 50278 Glucose [Mass/Vol] 97 mg/dL Normal 74 - 106 [facility] Comment on above: Performed By: #### 2 39290 ####[facility],[address] [place] [address] 35960 Potassium [Moles/Vol] 4.0 mmol/L Normal 3.5 - 5.1 [facility] Comment on above: Performed By: #### 2 28967 ####[facility],[address] [place] [address] 22468 Sodium [Moles/Vol] 142 mmol/L Normal 136 - 145 [facility] Comment on above: Performed By: #### 2 15797 ####[facility],[address] [place] [address] 24270 Urea nitrogen [Mass/Vol] 19 mg/dL High 7 - 18 [facility] Comment on above: Performed By: #### 2 18579 ####[facility],[address] [place] [address] 33740 BMP with eGFRon 08-15-2024 AGE 74 years Normal [facility] Comment on above: Performed By: #### 2 46687 ####[address],[place] [address] Anion gap [Moles/Vol] 11 mmol/L Normal 10 - 20 [facility] Comment on above: Performed By: #### 2 69325 ####[facility],[address] [place] [address] 75895 BMP with eGFR Normal [facility] Comment on above: Result Comment: BASI C METABOLIC PANEL Performed By: #### 2 24818 ####[facility],[address] [place] [address] 89098 Calcium [Mass/Vol] 8.9 mg/dL Normal 8.5 - 10.1 [facility] Comment on above: Performed By: #### 2 84080 ####[facility],[address] [place] [address] 67996 Chloride [Moles/Vol] 105 mmol/L Normal 98 - 107 [facility] Comment on above: Performed By: #### 2 77685 ####[facility],[address] [place] [address] 71705 CO2 [Moles/Vol] 28.0 mmol/L Normal 21.0 - 32.0 [facility] Comment on above: Performed By: #### 2 17263 ####[facility],[address] [place] [address] 21145 Creatinine [Mass/Vol] 1.33 mg/dL High 0.55 - 1.02 [facility] Comment on above: Performed By: #### 2 67874 ####[facility],[address] [place] [address] 78124 eGFR 39 ML/MINUTE Low 60 - 999 [facility] Comment on above: Performed By: #### 2 18525 ####[facility],[address] [place] [address] 33501 eGFR(AA) 47 ML/MINUTE Low 60 - 999 [facility] Comment on above: Result Comment: ACCO RDING TO THE NATIONAL KIDNEY DISEASE EDUCATION PROGRAM(NKDE), A NORMAL eGFRIS A VALUE GREATER THAN OR EQUAL TO 60 ML/MIN/1.73 SQ METERS.CHRONIC KIDNEY DISEASE: <60mL/MIN/1.73 SQ METERSKIDNEY FAILURE: <15mL/MIN/1.73 SQ METERSTHIS TEST SHOULD ONLY BE USED FOR PATIENTS 18 YEARS OF AGE AND OLDER. Performed By: #### 2 01767 ####[facility],[address] [place] [address] 25976 Glucose [Mass/Vol] 84 mg/dL Normal 74 - 106 [facility] Comment on above: Performed By: #### 2 79550 ####[facility],[address] [place] [address] 78818 Potassium [Moles/Vol] 3.7 mmol/L Normal 3.5 - 5.1 [facility] Comment on above: Performed By: #### 2 [id number] ####[facility],[address] [place] [address] 18488 Sodium [Moles/Vol] 140 mmol/L Normal 136 - 145 [facility] Comment on above: Performed By: #### 2 73749 ####[facility],[address] [place] [address] 81174 Urea nitrogen [Mass/Vol] 20 mg/dL High 7 - 18 [facility] Comment on above: Performed By: #### 2 63552 ####[facility],[address] [place] [address] 00533 BMP with eGFRon 08-14-2024 AGE 74 years Normal [facility] Comment on above: Performed By: #### 2 22814 ####[facility],[address] [place] [address] 24945 Anion gap [Moles/Vol] 12 mmol/L Normal 10 - [facility] Comment on above: Performed By: #### 2 08727 ####[facility],[address] [place] [address] 57872 BMP with eGFR Normal [facility] Comment on above: Result Comment: BASI C METABOLIC PANEL Performed By: #### 2 73305 ####[facility],[address] [place] [address] 31581 Calcium [Mass/Vol] 9.0 mg/dL Normal 8.5 - 10.1 [facility] Comment on above: Performed By: #### 2 51484 ####[facility],[address] [place] [address] 00917 Chloride [Moles/Vol] 104 mmol/L Normal 98 - 107 [facility] Comment on above: Performed By: #### 2 06839 ####[facility],[address] [place] [address] 32610 CO2 [Moles/Vol] 28.6 mmol/L Normal 21.0 - 32.0 [facility] Comment on above: Performed By: #### 2 89015 ####[facility],[address] [place] [address] 92504 Creatinine [Mass/Vol] 1.43 mg/dL High 0.55 - 1.02 [facility] Comment on above: Performed By: #### 2 75005 ####[address] [address] eGFR 36 ML/MINUTE Low 60 - 999 [facility] Comment on above: Performed By: #### 2 72180 ####[facility],[address] [place] [address] 76640 eGFR(AA) 43 ML/MINUTE Low 60 - 999 [facility] Comment on above: Result Comment: ACCO RDING TO THE NATIONAL KIDNEY DISEASE EDUCATION PROGRAM(NKDE), A NORMAL eGFRIS A VALUE GREATER THAN OR EQUAL TO 60 ML/MIN/1.73 SQ METERS.CHRONIC KIDNEY DISEASE: <60mL/MIN/1.73 SQ METERSKIDNEY FAILURE: <15mL/MIN/1.73 SQ METERSTHIS TEST SHOULD ONLY BE USED FOR PATIENTS 18 YEARS OF AGE AND OLDER. Performed By: #### 2 65763 ####[facility],[address] [place] [address] 03367 Glucose [Mass/Vol] 164 mg/dL High 74 - 106 [facility] Comment on above: Performed By: #### 2 92063 ####[facility],[address] [place] [address] 61354 Potassium [Moles/Vol] 3.8 mmol/L Normal 3.5 - 5.1 [facility] Comment on above: Performed By: #### 2 91668 ####[facility],[address] [place] [address] 73521 Sodium [Moles/Vol] 141 mmol/L Normal 136 - 145 [facility] Comment on above: Performed By: #### 2 29197 ####[facility],[address] [place], [place] [id number] Urea nitrogen [Mass/Vol] 18 mg/dL Normal 7 - 18 [facility] Comment on above: Performed By: #### 2 49668 ####[facility],[address] [place] [address] 09684 CBC + DIFF DAILYon 5 Baso # 0.02 x10EE3/UL Normal 0.00 - 0.10 [facility] Comment on above: Performed By: #### 2 29533 ####[facility],[address] [place] [address] 34535 Basophils/100 WBC (Bld) 0.5 % Normal 0.0 - 2.0 [facility] Comment on above: Performed By: #### 2 41061 ####[facility],[address] [place] [address] 85899 CBC + DIFF DAILY Normal [facility] Comment on above: Result Comment: CBC- COMPLETE BLOOD COUNT Performed By: #### 2 87941 ####[facility],[address] [place] [address] 63187 EO # 0.14 x10EE3/UL Normal 0.00 - 0.50 [facility] Comment on above: Performed By: #### 2 90474 ####[place] [address] Eosinophils/100 WBC (Bld) 3.4 % Normal 0.0 - 7.0 [facility] Comment on above: Performed By: #### 2 57398 ####[place] [address] Erythrocyte distribution width (RBC) [Ratio] 15.7 % High 12.0 - 15.6 [facility] Comment on above: Performed By: #### 2 92278 ####[place] [address] Hematocrit (Bld) [Volume fraction] 36.6 % Normal 34.0 - 46.0 [facility] Comment on above: Performed By: #### 2 63474 ####[place] [address] Hemoglobin (Bld) [Mass/Vol] 12.2 g/dL Normal 12.0 - 16.0 [facility] Comment on above: Result Comment: TEST REPEATED Performed By: #### 2 18964 ####[place] [address] Lymph # 0.76 x10EE3/UL Low 0.80 - 2.80 [facility] Comment on above: Performed By: #### 2 98037 ####[place] [address] Lymphocytes/100 WBC (Bld) 18.1 % Low 20.0 - 45.0 [facility] Comment on above: Performed By: #### 2 44658 ####[place] [address] MANUAL DIFF N/A Normal [facility] Comment on above: Performed By: #### 2 76520 ####[place] [address] MCH (RBC) [Entitic mass] 26 pg Low 27 - 33 [facility] Comment on above: Performed By: #### 2 29406 ####[facility],[address] [place] [address] MCHC 33 X10 3 Normal 32 - 36 [facility] Comment on above: Performed By: #### 2 96876 ####[facility],[address] [place] [address] MCV (RBC) [Entitic vol] 77 fL Low 80 - 99 [facility] Comment on above: Performed By: #### 2 34435 ####[facility],[address] [place] [address] Nolan # 0.59 x10EE3/UL Normal 0.20 - 1.00 [facility] Comment on above: Performed By: #### 2 60394 ####[facility],[address] [place] [address] MONOS % 14.1 % High 0.0 - 10.0 [facility] Comment on above: Performed By: #### 2 83723 ####[facility],[address] [place] [address] 75341 Morphology Abdon (Bld) [Interp] N/A Normal [facility] Comment on above: Performed By: #### 2 62284 ####[facility],[address] [place] [address] Neut # 2.70 x10EE3/UL Normal 1.50 - 7.10 [facility] Comment on above: Performed By: #### 2 21256 ####[facility],[address] [place], [place] [id number] Neutrophils/100 WBC (Bld) 63.9 % Normal 46.0 - 76.0 [facility] Comment on above: Performed By: #### 2 93468 ####[facility],[address] [place] [address] PLATELET 182 x10EE3/UL Normal 150 - [address] [facility] Comment on above: Performed By: #### 2 38311 ####[facility],[address] [place] [address] Platelet mean volume (Bld) [Entitic vol] 9.4 fL Normal 6.6 - 10.5 [facility] Comment on above: Result Comment: AUTO MATED DIFFERENTIAL Performed By: #### 2 23886 ####[facility],[address] [place] [address] RBC 4.74 x 10EE6/UL Normal 4.10 - 5.30 [facility] Comment on above: Performed By: #### 2 11098 ####[facility],[address] [place] [address] WBC 4.2 x 10EE3/UL Low 4.5 - 10.8 [facility] Comment on above: Performed By: #### 2 01868 ####[facility],[address] [place] [address] CMP with eGFR - DAILYon 07-20 AGE 74 years Normal [facility] Comment on above: Performed By: #### 2 55210 ####[facility],[address] [place] [address] Albumin [Mass/Vol] 2.2 g/dL Low 3.4 - 5.0 [facility] Comment on above: Performed By: #### 2 47108 ####[facility],[address] [place] [address] Albumin/Globulin [Mass ratio] 0.5 {ratio} Low 0.9 - 1.6 [facility] Comment on above: Performed By: #### 2 69466 ####[facility],[address] [place] [address] ALK PHOS 87 U/L Normal 46 - 116 [facility] Comment on above: Performed By: #### 2 51318 ####[facility],[address] [place] [address] ALT [Catalytic activity/Vol] 12 U/L Low 16 - 63 [facility] Comment on above: Performed By: #### 2 30393 ####[facility],[address] [place] [address] Anion gap [Moles/Vol] 9 mmol/L Low 10 - 20 [facility] Comment on above: Performed By: #### 2 35192 ####[facility],[address] [place] [address] AST [Catalytic activity/Vol] 15 U/L Normal 13 - 39 [facility] Comment on above: Performed By: #### 2 55053 ####[facility],[address] [place] [address] B/C RATIO 15 ratio Normal 0 - 30 [facility] Comment on above: Performed By: #### 2 62545 ####[facility],[address] [place] [address] Bilirubin [Mass/Vol] 0.4 mg/dL Normal 0.2 - 1.0 [facility] Comment on above: Performed By: #### 2 39275 ####[facility],[address] [place] [address] Calcium [Mass/Vol] 8.4 mg/dL Low 8.5 - 10.1 [facility] Comment on above: Performed By: #### 2 49713 ####[facility],[address] [place] [address] Chloride [Moles/Vol] 106 mmol/L Normal 98 - 107 [facility] Comment on above: Performed By: #### 2 54399 ####[facility],[address] [place] [address] CMP with eGFR - DAILY Normal [facility] Comment on above: Result Comment: COMP REHENSIVE METABOLIC PANEL Performed By: #### 2 05229 ####[facility],[address] [place], [place] [id number] CO2 [Moles/Vol] 30.0 mmol/L Normal 21.0 - 32.0 [facility] Comment on above: Performed By: #### 2 63233 ####[facility],[address] [place] [address] 35058 Creatinine [Mass/Vol] 1.21 mg/dL High 0.55 - 1.02 [facility] Comment on above: Performed By: #### 2 98651 ####[facility],[address] [place] [address] eGFR 43 ML/MINUTE Low 60 - 999 [facility] Comment on above: Performed By: #### 2 23101 ####[facility],[address] [place] [address] eGFR(AA) 53 ML/MINUTE Low 60 - 999 [facility] Comment on above: Result Comment: ACCO RDING TO THE NATIONAL KIDNEY DISEASE EDUCATION PROGRAM(NKDE), A NORMAL eGFRIS A VALUE GREATER THAN OR EQUAL TO 60 ML/MIN/1.73 SQ METERS.CHRONIC KIDNEY DISEASE: <60mL/MIN/1.73 SQ METERSKIDNEY FAILURE: <15mL/MIN/1.73 SQ METERS Performed By: #### 2 35525 ####[facility],[address] [place] [address] 81616 Globulin (S) [Mass/Vol] 4.2 g/dL High 1.5 - 3.8 [facility] Comment on above: Performed By: #### 2 92282 ####[facility],[address] [place] [address] 13617 Glucose [Mass/Vol] 179 mg/dL High 74 - 106 [facility] Comment on above: Performed By: #### 2 40810 ####[facility],[address] [place], [place] [id number] Potassium [Moles/Vol] 3.8 mmol/L Normal 3.5 - 5.1 [facility] Comment on above: Performed By: #### 2 03881 ####[facility],[address] [place] [address] Protein [Mass/Vol] 6.4 g/dL Normal 6.4 - 8.2 [facility] Comment on above: Performed By: #### 2 77093 ####[facility],[address] [place] [address] Sodium [Moles/Vol] 141 mmol/L Normal 136 - 145 [facility] Comment on above: Performed By: #### 2 96590 ####[facility],[address] [place] [address] Urea nitrogen [Mass/Vol] 18 mg/dL Normal 7 - 18 [facility] Comment on above: Performed By: #### 2 42551 ####[facility],[address] [place] [address] ED MED ADMINISTRATION DETAIL on 08-13-2024 ED MED ADMINISTRATION DETAIL Normal [facility] ED NURSES CLINICAL NOTEon ED NURSES CLINICAL NOTE Normal [facility] ED ORDER SHEET (CPOE ONLY)on 08-13-2024 ED ORDER SHEET (CPOE ONLY) Normal [facility] ED PHYSICIAN CLINICAL REPORT on 08-13-2024 ED PHYSICIAN CLINICAL REPORT Normal [facility] ED SUPER BILLon 08-13-2024 ED SUPER BILL Normal [facility] ED VISIT SUMMARYon ED VISIT SUMMARY Normal [facility] ED VITALS FLOW SHEETon 08-13 ED VITALS FLOW SHEET Normal [facility] HEMOGLOBIN A1C (POM)on 08-13 Glucose [Mass/Vol] 203.0 mg/dL High 0.0 - 0.0 [facility] Comment on above: Result Comment: BLDo HEMOGLOBIN A1C REFERENCE RANGESBLDo Suggested Diagnosis HbA1c(%) HbA1C (mmol/mol Diabetic >/=6.5 >/=48 Prediabetes 5.7 - 6.4 39 - 47 Normal <5.7 <39 Performed By: #### 2 31698 ####[facility],[address],[place] [address] HbA1c (Bld) [Mass fraction] 8.7 % High 0.0 - 6.5 [facility] Comment on above: Performed By: #### 2 24380 ####[facility],[address] [place] [address] 07962 APTTon 08-12-2024 aPTT Coag ([facility]) [Time] 30.6 s Normal 25.4 - 38.4 [facility] Comment on above: Performed By: #### 2 29062 ####[facility],[address] [place] [address] 18276 CBC + DIFFon 08-12-2024 Baso # 0.02 x10EE3/UL Normal 0.00 - 0.10 [facility] Comment on above: Performed By: #### 2 01997 ####[facility],[address] [place] [address] 50159 Basophils/100 WBC (Bld) 0.4 % Normal 0.0 - 2.0 [facility] Comment on above: Performed By: #### 2 88231 ####[facility],[address] [place] [address] 32337 CBC + DIFF Normal [facility] Comment on above: Result Comment: CBC- COMPLETE BLOOD COUNT Performed By: #### 2 69874 ####[facility],[address] [place] [address] 40145 EO # 0.21 x10EE3/UL Normal 0.00 - 0.50 [facility] Comment on above: Performed By: #### 2 15972 ####[facility],[address] [place] [address] 55710 Eosinophils/100 WBC (Bld) 4.1 % Normal 0.0 - 7.0 [facility] Comment on above: Performed By: #### 2 87590 ####[facility],[address] [place] [address] 61755 Erythrocyte distribution width (RBC) [Ratio] 16.5 % High 12.0 - 15.6 [facility] Comment on above: Performed By: #### 2 58605 ####[facility],[address] [place] [address] Hematocrit (Bld) [Volume fraction] 43.7 % Normal 34.0 - 46.0 [facility] Comment on above: Performed By: #### 2 76017 ####[facility],[address] [place] [address] Hemoglobin (Bld) [Mass/Vol] 14.4 g/dL Normal 12.0 - 16.0 [facility] Comment on above: Performed By: #### 2 25747 ####[facility],[address] [place] [address] Lymph # 0.89 x10EE3/UL Normal 0.80 - 2.80 [facility] Comment on above: Performed By: #### 2 40932 ####[place] [address] Lymphocytes/100 WBC (Bld) 17.3 % Low 20.0 - 45.0 [facility] Comment on above: Performed By: #### 2 11975 ####[facility],[address] [place] [address] MANUAL DIFF N/A Normal [facility] Comment on above: Performed By: #### 2 10579 ####[facility],[address] [place], [place] [id number] MCH (RBC) [Entitic mass] 26 pg Low 27 - 33 [facility] Comment on above: Performed By: #### 2 96376 ####[facility],[address] [place], [place] [id number] MCHC 33 X10 3 Normal 32 - 36 [facility] Comment on above: Performed By: #### 2 56949 ####[address] [address] MCV (RBC) [Entitic vol] 80 fL Normal 80 - 99 [facility] Comment on above: Performed By: #### 2 48248 ####[facility],[address] [place] [address] 52808 Nolan # 0.48 x10EE3/UL Normal 0.20 - 1.00 [facility] Comment on above: Performed By: #### 2 01429 ####[facility],[address] [place] [address] 22433 MONOS % 9.2 % Normal 0.0 - 10.0 [facility] Comment on above: Performed By: #### 2 78173 ####[facility],[address] [place] [address] 34649 Morphology Abdon (Bld) [Interp] N/A Normal [facility] Comment on above: Performed By: #### 2 56321 ####[facility],[address] [place] [address] 73280 Neut # 3.56 x10EE3/UL Normal 1.50 - 7.10 [facility] Comment on above: Performed By: #### 2 72059 ####[facility],[address] [place] [address] 59237 Neutrophils/100 WBC (Bld) 69.0 % Normal 46.0 - 76.0 [facility] Comment on above: Performed By: #### 2 51870 ####[facility],[address] [place] [address] 19629 PLATELET 207 x10EE3/UL Normal 150 - [address] [facility] Comment on above: Performed By: #### 2 50815 ####[facility],[address] [place] [address] 65489 Platelet mean volume (Bld) [Entitic vol] 10.0 fL Normal 6.6 - 10.5 [facility] Comment on above: Result Comment: AUTO MATED DIFFERENTIAL Performed By: #### 2 72972 ####[facility],[address] [place] [address] 43075 RBC 5.49 x 10EE6/UL High 4.10 - 5.30 [facility] Comment on above: Performed By: #### 2 93373 ####[facility],[address] [place] [address] 72182 WBC 5.2 x 10EE3/UL Normal 4.5 - 10.8 [facility] Comment on above: Performed By: #### 2 41414 ####[facility],[address] [place] [address] 75312 CHEST 1 VIEWon 08-12-2024 CHEST 1 VIEW Normal [facility] CMP with eGFRon 08-12-2024 AGE 74 years Normal [facility] Comment on above: Performed By: #### 2 54920 ####[facility],[address] [place] [address] 77219 Albumin [Mass/Vol] 2.7 g/dL Low 3.4 - 5.0 [facility] Comment on above: Performed By: #### 2 15056 ####[facility],[address] [place] [address] 27693 Albumin/Globulin [Mass ratio] 0.5 {ratio} Low 0.9 - 1.6 [facility] Comment on above: Performed By: #### 2 89708 ####[facility],[address] [place] [address] 26402 ALK PHOS 107 U/L Normal 46 - 116 [facility] Comment on above: Performed By: #### 2 23732 ####[facility],[address] [place] [address] 76908 ALT [Catalytic activity/Vol] 19 U/L Normal 16 - 63 [facility] Comment on above: Performed By: #### 2 17851 ####[facility],[address] [place] [address] 58666 Anion gap [Moles/Vol] 14 mmol/L Normal 10 - 20 [facility] Comment on above: Performed By: #### 2 84167 ####[facility],[address] [place] [address] 48803 AST [Catalytic activity/Vol] 21 U/L Normal 13 - 39 [facility] Comment on above: Performed By: #### 2 21242 ####[facility],[address] [place] [address] 46339 B/C RATIO 14 ratio Normal 0 - 30 [facility] Comment on above: Performed By: #### 2 49457 ####[facility],[address] [place] [address] 07078 Bilirubin [Mass/Vol] 0.5 mg/dL Normal 0.2 - 1.0 [facility] Comment on above: Performed By: #### 2 32341 ####[facility],[address] [place] [address] 61809 Calcium [Mass/Vol] 9.3 mg/dL Normal 8.5 - 10.1 [facility] Comment on above: Performed By: #### 2 49850 ####[facility],[address] [place] [address] 35408 Chloride [Moles/Vol] 103 mmol/L Normal 98 - 107 [facility] Comment on above: Performed By: #### 2 12325 ####[facility],[address] [place] [address] 37653 CMP with eGFR Normal [facility] Comment on above: Result Comment: COMP REHENSIVE METABOLIC PANEL Performed By: #### 2 79088 ####[facility],[address] [place] [address] 15017 CO2 [Moles/Vol] 27.3 mmol/L Normal 21.0 - 32.0 [facility] Comment on above: Performed By: #### 2 25381 ####[facility],[address] [place] [address] 08355 Creatinine [Mass/Vol] 1.38 mg/dL High 0.55 - 1.02 [facility] Comment on above: Performed By: #### 2 88295 ####[facility],[address] [place] [address] 68229 eGFR 37 ML/MINUTE Low 60 - 999 [facility] [facility] [place] Comment on above: Performed By: #### 2 35134 ####[facility],[address] [place] [address] 45420 eGFR(AA) 45 ML/MINUTE Low 60 - 999 [facility] Comment on above: Result Comment: ACCO RDING TO THE NATIONAL KIDNEY DISEASE EDUCATION PROGRAM(NKDE), A NORMAL eGFRIS A VALUE GREATER THAN OR EQUAL TO 60 ML/MIN/1.73 SQ METERS.CHRONIC KIDNEY DISEASE: <60mL/MIN/1.73 SQ METERSKIDNEY FAILURE: <15mL/MIN/1.73 SQ METERSTHIS TEST SHOULD ONLY BE USED FOR PATIENTS 18 YEARS OF AGE AND OLDER. Performed By: #### 2 60530 ####[address] [address] Globulin (S) [Mass/Vol] 5.2 g/dL High 1.5 - 3.8 [facility] Comment on above: Performed By: #### 2 15289 ####[address] [address] Glucose [Mass/Vol] 217 mg/dL High 74 - 106 [facility] Comment on above: Performed By: #### 2 34086 ####[address] [address] Potassium [Moles/Vol] 3.9 mmol/L Normal 3.5 - 5.1 [facility] Comment on above: Performed By: #### 2 84855 ####[address] [address] Protein [Mass/Vol] 7.9 g/dL Normal 6.4 - 8.2 [facility] Comment on above: Performed By: #### 2 38139 ####[place] [id number] Sodium [Moles/Vol] 140 mmol/L Normal 136 - 145 [facility] Comment on above: Performed By: #### 2 22188 ####[facility],[address] [place] [address] 38640 Urea nitrogen [Mass/Vol] 19 mg/dL High 7 - 18 [facility] Comment on above: Performed By: #### 2 49880 ####[facility],[address] [place] [address] 02229 CULTURE BLOOD [ZA]on Microscopic examination of blood, culture CULTURE BLOOD [ZA] _BLOOD CULTURE_ GO TO [facility] REPORTS AND ATTACHMENTS FOR SCANNED REPORT 08/20/[id number].DNP.COMPLET E Normal [facility] Comment on above: Performed By: #### 2 64169 ####[facility],[address] [place] [address] 76662 D-DIMER, QUANTITATIVEon 07-20 D-DIMER QUANT 549 ng/ml High 0 - [address] [facility] Comment on above: Performed By: #### 2 37746 ####[facility],[address] [place] [address] 57111 D-DIMER, QUANTITATIVE Normal [facility] Comment on above: Result Comment: MIREILLE T D-DIMER Performed By: #### 2 67661 ####[facility],[address] [place] [address] 95839 NT-proBNPon 08-12-2024 Natriuretic peptide B (Bld) [Mass/Vol] 8312 pg/mL High 0 - 450 [facility] Comment on above: Performed By: #### 2 21629 ####[facility],[address] [place] [address] 44054 PROTHROMBIN TIME AND INRon 0 08-12-2024 INR Coag (PPP) [Relative time] 1.2 {INR} Normal 0.8 - 1.2 [facility] Comment on above: Result Comment: T HE HEMOSIL THROMBOPLASTIN REAGENT USED IN THE PROTHROMBIN TIMETEST INTERACTS WITH THE DRUG CUBICIN (DAPTOMYCIN) AND WILL RESULTIN FALSELY ELEVATED PT / INR RESULTS INR INTERPRETATION INR INDICATION PREVENTION AND TREATMENT OF THROMBOEMBOLISM ASSOCIATED WITH: 2.0 - 3.0 ATRIAL FIBRILLATION, BIOPROSTHETIC HEART VALVES, PULMONARY EMBOLISM, VENOUS THROMBOSIS, SYSTEMIC EMBOLISM POST MYOCARDIAL INFARCTION 2.5 - 3.5 MECHANICAL HEART VALVES Performed By: #### 2 91175 ####[place] [address] PROTHROMBIN TIME AND INR Normal [facility] Comment on above: Result Comment: PROT HROMBIN TIME AND INR Performed By: #### 2 66463 ####[place] [address] PT-COUMADIN 14.3 sec High 9.3 - 14.1 [facility] Comment on above: Performed By: #### 2 78530 ####[place] [address] TROPONINon 08-12-2024 HS TROPONIN 36.9 pg/mL Normal 0.0 - 51.4 [facility] Comment on above: Performed By: #### 2 80955 ####[facility],[address] [place] [address] HS TROPONIN 37.9 pg/mL Normal 0.0 - 51.4 [facility] Comment on above: Performed By: #### 2 57636 ####[place] [address] URINALYSISon 08-12-2024 Amorphous NONE Normal [facility] Comment on above: Performed By: #### 2 05540 ####[place] [address] Bacteria NONE Normal [facility] Comment on above: Performed By: #### 2 38579 ####[place] [address] Bilirubin Ql (U) Negative Normal NORMAL: NEGATIVE [facility] Comment on above: Performed By: #### 2 22731 ####[facility],[address] [place] [address] 33894 Casts NONE Normal [facility] Comment on above: Performed By: #### 2 89782 ####[facility],[address] [place] [address] 02916 Clarity (U) clear Normal NORMAL: CLEAR [facility] Comment on above: Performed By: #### 2 08806 ####[facility],[address] [place], [place] [id number] Color (U) bernard Normal NORMAL: YELLOW [facility] Comment on above: Performed By: #### 2 23628 ####[facility],[address] [place] [address] 74489 Crystals LM Nom (Urine sed) NONE Normal [facility] Comment on above: Performed By: #### 2 36150 ####[facility],[address] [place] [address] 65360 Epi Cells NONE Normal [facility] Comment on above: Performed By: #### 2 20472 ####[facility],[address] [place] [address] 34153 Glucose Ql (U) 100 Abnormal NORMAL: NORMAL [facility] Comment on above: Performed By: #### 2 74662 ####[facility],[address] [place] [address] 42753 Hemoglobin Ql (U) 50 Abnormal NORMAL: NEGATIVE [facility] Comment on above: Performed By: #### 2 13752 ####[facility],[address] [place] [address] 66832 Ketone Negative Normal NORMAL: NEGATIVE [facility] Comment on above: Performed By: #### 2 28510 ####[facility],[address] [place] [address] 26888 Leukocytes Negative Normal NORMAL: NEGATIVE [facility] Comment on above: Performed By: #### 2 39066 ####[facility],[address] [place] [address] Mucous NONE Normal [facility] Comment on above: Performed By: #### 2 76242 ####[facility],[address] [place] [address] Nitrite Ql (U) Positive Normal NORMAL: NEGATIVE [facility] Comment on above: Performed By: #### 2 79020 ####[facility],[address] [place] [address] pH (U) 5 [pH] Normal NORMAL: 5.0-8.0 [facility] Comment on above: Performed By: #### 2 78596 ####[facility],[address] [place] [address] Protein Ql (U) 500 Abnormal NORMAL: NEGATIVE [facility] Comment on above: Performed By: #### 2 20907 ####[facility],[address] [place] [address] Rbc NONE Normal 0-3/hpf [facility] Comment on above: Performed By: #### 2 97646 ####[facility],[address] [place] [address] Sp Saxton 1.025 Normal NORMAL: 1.010-1.030 [facility] Comment on above: Performed By: #### 2 21119 ####[facility],[address] [place] [address] Specimen Type R Normal [facility] Comment on above: Performed By: #### 2 35675 ####[facility],[address] [place] [address] Urinalysis dipstick W Reflex Microscopic panel (U) SEE BELOW Normal [facility] Comment on above: Result Comment: MICR OSCOPIC Performed By: #### 2 56567 ####[facility],[address] [place] [address] Urobilinog NORM Normal NORMAL: NORMAL [facility] Comment on above: Performed By: #### 2 46045 ####[facility],[address] [place] [address]13 Wbc NONE Normal 0-5/hpf [facility] Comment on above: Performed By: #### 2 21361 ####[facility],[address] [place] [address] 02085 Yeast NONE Normal [facility] Comment on above: Result Comment: SMAL L SAMPLE MICROSCOPIC UNSPUN Performed By: #### 2 61386 ####[facility],[address] [place] [address] 44453 No Panel Informationon 05-07 Culture Wound Aerobe Moderate normal ski n es present. Sensitivity testing not indicated. [facility] GS 2+ Epithelial cells No organisms seen. [facility] CBC + DIFFon 04-09-2024 Baso # 0.02 x10EE3/UL Normal 0.00 - 0.10 [facility] Comment on above: Performed By: #### 2 64566 ####[facility],[address] [place] [address] 05290 Basophils/100 WBC (Bld) 0.3 % Normal 0.0 - 2.0 [facility] Comment on above: Performed By: #### 2 14365 ####[facility],[address] [place] [address] 27854 CBC + DIFF Normal [facility] Comment on above: Result Comment: CBC- COMPLETE BLOOD COUNT Performed By: #### 2 11174 ####[facility],[address] [place] [address] 38810 EO # 0.03 x10EE3/UL Normal 0.00 - 0.50 [facility] Comment on above: Performed By: #### 2 24407 ####[facility],[address] [place] [address] 74489 Eosinophils/100 WBC (Bld) 0.5 % Normal 0.0 - 7.0 [facility] Comment on above: Performed By: #### 2 56562 ####[facility],[address] [place] [address] Erythrocyte distribution width (RBC) [Ratio] 13.8 % Normal 12.0 - 15.6 [facility] Comment on above: Performed By: #### 2 47645 ####[facility],[address] [place] [address] Hematocrit (Bld) [Volume fraction] 44.7 % Normal 34.0 - 46.0 [facility] Comment on above: Performed By: #### 2 78578 ####[facility],[address] [place] [address] Hemoglobin (Bld) [Mass/Vol] 14.7 g/dL Normal 12.0 - 16.0 [facility] Comment on above: Performed By: #### 2 56526 ####[facility],[address] [place] [address] Lymph # 1.39 x10EE3/UL Normal 0.80 - 2.80 [facility] Comment on above: Performed By: #### 2 60163 ####[facility],[address] [place] [address] Lymphocytes/100 WBC (Bld) 18.4 % Low 20.0 - 45.0 [facility] Comment on above: Performed By: #### 2 42403 ####[facility],[address] [place], [place] [id number] MANUAL DIFF N/A Normal [facility] Comment on above: Performed By: #### 2 25759 ####[facility],[address] [place], [place] [id number] MCH (RBC) [Entitic mass] 28 pg Normal 27 - 33 [facility] Comment on above: Performed By: #### 2 53850 ####[facility],[address] [place] [address] MCHC 33 X10 3 Normal 32 - 36 [facility] Comment on above: Performed By: #### 2 60316 ####[facility],[address] [place] [address] MCV (RBC) [Entitic vol] 84 fL Normal 80 - 99 [facility] Comment on above: Performed By: #### 2 16151 ####[facility],[address] [place] [address] Nolan # 0.49 x10EE3/UL Normal 0.20 - 1.00 [facility] Comment on above: Performed By: #### 2 78668 ####[facility],[address] [place] [address] MONOS % 6.5 % Normal 0.0 - 10.0 [facility] Comment on above: Performed By: #### 2 23971 ####[facility],[address] [place] [address] Morphology Abdon (Bld) [Interp] N/A Normal [facility] Comment on above: Performed By: #### 2 92436 ####[facility],[address] [place] [address] Neut # 5.62 x10EE3/UL Normal 1.50 - 7.10 [facility] Comment on above: Performed By: #### 2 83044 ####[facility],[address] [place] [address] Neutrophils/100 WBC (Bld) 74.5 % Normal 46.0 - 76.0 [facility] Comment on above: Performed By: #### 2 60302 ####[facility],[address] [place] [address] PLATELET 198 x10EE3/UL Normal 150 - [address] [facility] Comment on above: Performed By: #### 2 05352 ####[facility],[address],[place] [address] Platelet mean volume (Bld) [Entitic vol] 9.4 fL Normal 6.6 - 10.5 [facility] Comment on above: Result Comment: AUTO MATED DIFFERENTIAL Performed By: #### 2 02262 ####[facility],[address] [place] [address] 33790 RBC 5.32 x 10EE6/UL High 4.10 - 5.30 [facility] Comment on above: Performed By: #### 2 00504 ####[facility],[address] [place] [address] 43503 WBC 7.6 x 10EE3/UL Normal 4.5 - 10.8 [facility] Comment on above: Performed By: #### 2 19263 ####[facility],[address] [place] [address] 97607 CMP with eGFRon 04-09-2024 AGE 73 years Normal [facility] Comment on above: Performed By: #### 2 12543 ####[facility],[address] [place] [address] 69983 Albumin [Mass/Vol] 2.9 g/dL Low 3.4 - 5.0 [facility] Comment on above: Performed By: #### 2 96918 ####[facility],[address] [place] [address] 43008 Albumin/Globulin [Mass ratio] 0.6 {ratio} Low 0.9 - 1.6 [facility] Comment on above: Performed By: #### 2 13544 ####[facility],[address] [place] [address] 76375 ALK PHOS 86 U/L Normal 46 - 116 [facility] Comment on above: Performed By: #### 2 74048 ####[facility],[address] [place] [address] 28583 ALT [Catalytic activity/Vol] 50 U/L Normal 16 - 63 [facility] Comment on above: Performed By: #### 2 39925 ####[facility],[address] [place] [address] 12294 Anion gap [Moles/Vol] 12 mmol/L Normal 10 - 20 [facility] Comment on above: Performed By: #### 2 24069 ####[facility],[address] [place] [address] 42244 AST [Catalytic activity/Vol] 28 U/L Normal 13 - 39 [facility] Comment on above: Performed By: #### 2 66404 ####[facility],[address] [place] [address] 67180 B/C RATIO 22 ratio Normal 0 - 30 [facility] Comment on above: Performed By: #### 2 64001 ####[facility],[address] [place] [address] 48776 Bilirubin [Mass/Vol] 0.4 mg/dL Normal 0.2 - 1.0 [facility] Comment on above: Performed By: #### 2 12517 ####[facility],[address] [place] [address] 34990 Calcium [Mass/Vol] 8.9 mg/dL Normal 8.5 - 10.1 [facility] Comment on above: Performed By: #### 2 02327 ####[facility],[address] [place] [address] 05036 Chloride [Moles/Vol] 100 mmol/L Normal 98 - 107 [facility] Comment on above: Performed By: #### 2 94212 ####[facility],[address] [place] [address] 69210 CMP with eGFR Normal [facility] Comment on above: Result Comment: COMP REHENSIVE METABOLIC PANEL Performed By: #### 2 24683 ####[facility],[address] [place] [address] 26147 CO2 [Moles/Vol] 31.7 mmol/L Normal 21.0 - 32.0 [facility] Comment on above: Performed By: #### 2 11597 ####[facility],[address] [place] [address] 63140 Creatinine [Mass/Vol] 1.08 mg/dL High 0.55 - 1.02 [facility] Comment on above: Performed By: #### 2 31832 ####[facility],[address] [place] [address] 97687 eGFR 50 ML/MINUTE Low 60 - 999 [facility] Comment on above: Performed By: #### 2 03254 ####[facility],[address] [place] [address] 60856 eGFR(AA) 60 ML/MINUTE Normal 60 - 999 [facility] Comment on above: Result Comment: ACCO RDING TO THE NATIONAL KIDNEY DISEASE EDUCATION PROGRAM(NKDE), A NORMAL eGFRIS A VALUE GREATER THAN OR EQUAL TO 60 ML/MIN/1.73 SQ METERS.CHRONIC KIDNEY DISEASE: <60mL/MIN/1.73 SQ METERSKIDNEY FAILURE: <15mL/MIN/1.73 SQ METERSTHIS TEST SHOULD ONLY BE USED FOR PATIENTS 18 YEARS OF AGE AND OLDER. Performed By: #### 2 61277 ####[facility],[address] [place] [address] 84504 Globulin (S) [Mass/Vol] 4.6 g/dL High 1.5 - 3.8 [facility] Comment on above: Performed By: #### 2 69637 ####[facility],[address] [place] [address] 90381 Glucose [Mass/Vol] 269 mg/dL High 74 - 106 [facility] Comment on above: Performed By: #### 2 57157 ####[facility],[address] [place] [address] 79512 Potassium [Moles/Vol] 3.8 mmol/L Normal 3.5 - 5.1 [facility] Comment on above: Performed By: #### 2 02050 ####[facility],[address] [place] [address] 97734 Protein [Mass/Vol] 7.5 g/dL Normal 6.4 - 8.2 [facility] Comment on above: Performed By: #### 2 50913 ####[facility],[address] [place] [address] 95583 Sodium [Moles/Vol] 140 mmol/L Normal 136 - 145 [facility] Comment on above: Performed By: #### 2 40708 ####[facility],[address] [place] [address] 68486 Urea nitrogen [Mass/Vol] 24 mg/dL High 7 - 18 [facility] Comment on above: Performed By: #### 2 51444 ####[facility],[address] [place] [address] 47143 HEMOGLOBIN A1C (POM)on 04-09 Glucose [Mass/Vol] 263.3 mg/dL High 0.0 - 0.0 [facility] Comment on above: Result Comment: BLDo HEMOGLOBIN A1C REFERENCE RANGESBLDo Suggested Diagnosis HbA1c(%) HbA1C (mmol/mol Diabetic >/=6.5 >/=48 Prediabetes 5.7 - 6.4 39 - 47 Normal <5.7 <39 Performed By: #### 2 28418 ####[facility],[address] [place] [address] 46121 HbA1c (Bld) [Mass fraction] 10.8 % High 0.0 - 6.5 [facility] Comment on above: Performed By: #### 2 40775 ####[facility],[address] [place] [address] 73315 BMP with eGFR DAILYon 2024 AGE 73 years Normal [facility] Comment on above: Performed By: #### 2 01565 ####[facility],[address] [place] [address] 86189 Anion gap [Moles/Vol] 13 mmol/L Normal - [facility] Comment on above: Performed By: #### 2 62863 ####[facility],[address] [place] [address] 56881 BMP with eGFR DAILY Normal [facility] Comment on above: Result Comment: BASI C METABOLIC PANEL Performed By: #### 2 16252 ####[facility],[address] [place] [address] 02470 Calcium [Mass/Vol] 8.5 mg/dL Normal 8.5 - 10.1 [facility] Comment on above: Performed By: #### 2 08287 ####[facility],[address] [place] [address] 60336 Chloride [Moles/Vol] 105 mmol/L Normal 98 - 107 [facility] Comment on above: Performed By: #### 2 14077 ####[facility],[address] [place] [address] 47333 CO2 [Moles/Vol] 25.0 mmol/L Normal 21.0 - 32.0 [facility] Comment on above: Performed By: #### 2 94274 ####[facility],[address] [place] [address] 64978 Creatinine [Mass/Vol] 1.17 mg/dL High 0.55 - 1.02 [facility] Comment on above: Performed By: #### 2 68877 ####[facility],[address] [place] [address] 05846 eGFR 45 ML/MINUTE Low 60 - 999 [facility] Comment on above: Performed By: #### 2 95351 ####[facility],[address] [place] [address] 30037 eGFR(AA) 55 ML/MINUTE Low 60 - 999 [facility] Comment on above: Result Comment: ACCO RDING TO THE NATIONAL KIDNEY DISEASE EDUCATION PROGRAM(NKDE), A NORMAL eGFRIS A VALUE GREATER THAN OR EQUAL TO 60 ML/MIN/1.73 SQ METERS.CHRONIC KIDNEY DISEASE: <60mL/MIN/1.73 SQ METERSKIDNEY FAILURE: <15mL/MIN/1.73 SQ METERSTHIS TEST SHOULD ONLY BE USED FOR PATIENTS 18 YEARS OF AGE AND OLDER. Performed By: #### 2 91167 ####[facility],[address] [place] [address] 98527 Glucose [Mass/Vol] 144 mg/dL High 74 - 106 [facility] Comment on above: Performed By: #### 2 24301 ####[facility],[address] [place] [address] 99250 Potassium [Moles/Vol] 3.4 mmol/L Low 3.5 - 5.1 [facility] Comment on above: Performed By: #### 2 54825 ####[facility],[address] [place] [address] 15388 Sodium [Moles/Vol] 140 mmol/L Normal 136 - 145 [facility] Comment on above: Performed By: #### 2 61799 ####[facility],[address] [place] [address] 79713 Urea nitrogen [Mass/Vol] 22 mg/dL High 7 - 18 [facility] [facility] Comment on above: Performed By: #### 2 [id number] ####[facility],[address] [place] [address] 45056 C DIFF COMPLETEon 04-05-2024 C DIFF COMPLETE Normal [facility] Comment on above: Performed By: #### 2 59192 ####[facility],[address] [place] [address] 27941 ED MED ADMINISTRATION DETAIL on 04-05-2024 ED MED ADMINISTRATION DETAIL Normal [facility] ED NURSES CLINICAL NOTEon ED NURSES CLINICAL NOTE Normal [facility] ED ORDER SHEET (CPOE ONLY)on 04-05-2024 ED ORDER SHEET (CPOE ONLY) Normal [facility] ED PHYSICIAN CLINICAL REPORT on 04-05-2024 ED PHYSICIAN CLINICAL REPORT Normal [facility] ED PHYSICIAN DISCHARGE REPOR Ton 04-05-2024 ED PHYSICIAN DISCHARGE REPORT Normal [facility] ED SUPER BILLon 04-05-2024 ED SUPER BILL Normal [facility] ED VISIT SUMMARYon ED VISIT SUMMARY Normal [facility] ED VITALS FLOW SHEETon 04-05 ED VITALS FLOW SHEET Normal [facility] BMP with eGFR DAILYon 2024 AGE 73 years Normal [facility] Comment on above: Performed By: #### 2 [id number] ####[facility],[address] [place] [address] 51074 Anion gap [Moles/Vol] 12 mmol/L Normal 10 - 20 [facility] Comment on above: Performed By: #### 2 18394 ####[facility],[address] [place] [address] 61242 BMP with eGFR DAILY Normal [facility] Comment on above: Result Comment: BASI C METABOLIC PANEL Performed By: #### 2 61245 ####[facility],[address] [place] [address] 82910 Calcium [Mass/Vol] 8.5 mg/dL Normal 8.5 - 10.1 [facility] Comment on above: Performed By: #### 2 66190 ####[facility],[address] [place] [address] 86370 Chloride [Moles/Vol] 103 mmol/L Normal 98 - 107 [facility] Comment on above: Performed By: #### 2 79169 ####[facility],[address] [place] [address] 62363 CO2 [Moles/Vol] 26.0 mmol/L Normal 21.0 - 32.0 [facility] Comment on above: Performed By: #### 2 20798 ####[facility],[address] [place] [address] 98017 Creatinine [Mass/Vol] 1.33 mg/dL High 0.55 - 1.02 [facility] Comment on above: Performed By: #### 2 18974 ####[facility],[address] [place] [address] 00117 eGFR 39 ML/MINUTE Low 60 - 999 [facility] Comment on above: Performed By: #### 2 16323 ####[facility],[address] [place] [address] 85726 eGFR(AA) 47 ML/MINUTE Low 60 - 999 [facility] Comment on above: Result Comment: ACCO RDING TO THE NATIONAL KIDNEY DISEASE EDUCATION PROGRAM(NKDE), A NORMAL eGFRIS A VALUE GREATER THAN OR EQUAL TO 60 ML/MIN/1.73 SQ METERS.CHRONIC KIDNEY DISEASE: <60mL/MIN/1.73 SQ METERSKIDNEY FAILURE: <15mL/MIN/1.73 SQ METERSTHIS TEST SHOULD ONLY BE USED FOR PATIENTS 18 YEARS OF AGE AND OLDER. Performed By: #### 2 56029 ####[facility],[address] [place] [address] 10092 Glucose [Mass/Vol] 202 mg/dL High 74 - 106 [facility] Comment on above: Performed By: #### 2 08372 ####[facility],[address] [place] [address] 11435 Potassium [Moles/Vol] 3.5 mmol/L Normal 3.5 - 5.1 [facility] Comment on above: Performed By: #### 2 86129 ####[facility],[address] [place] [address] 34368 Sodium [Moles/Vol] 137 mmol/L Normal 136 - 145 [facility] Comment on above: Performed By: #### 2 74652 ####[facility],[address] [place] [address] 24713 Urea nitrogen [Mass/Vol] 21 mg/dL High 7 - 18 [facility] Comment on above: Performed By: #### 2 25359 ####[facility],[address] [place] [address] 73768 CV ECHO COMPLETE W/CONTRAST PER PROTOCOLon 04-04-2024 CV ECHO COMPLETE W/CONTRAST PER PROTOCOL Normal [facility] BMP with eGFR DAILYon 2024 AGE 73 years Normal [facility] Comment on above: Performed By: #### 2 00881 ####[facility],[address] [place] [address] 21099 Anion gap [Moles/Vol] 13 mmol/L Normal 10 - 20 [facility] Comment on above: Performed By: #### 2 70350 ####[facility],[address] [place] [address] 74703 BMP with eGFR DAILY Normal [facility] Comment on above: Result Comment: BASI C METABOLIC PANEL Performed By: #### 2 23502 ####[facility],[address] [place] [address] 93349 Calcium [Mass/Vol] 8.4 mg/dL Low 8.5 - 10.1 [facility] Comment on above: Performed By: #### 2 17373 ####[facility],[address] [place] [address] 11187 Chloride [Moles/Vol] 103 mmol/L Normal 98 - 107 [facility] Comment on above: Performed By: #### 2 48706 ####[facility],[address] [place] [address] 05651 CO2 [Moles/Vol] 24.6 mmol/L Normal 21.0 - 32.0 [facility] Comment on above: Performed By: #### 2 57142 ####[facility],[address] [place] [address] 80399 Creatinine [Mass/Vol] 1.38 mg/dL High 0.55 - 1.02 [facility] Comment on above: Performed By: #### 2 00395 ####[facility],[address] [place] [address] 96127 eGFR 37 ML/MINUTE Low 60 - 999 [facility] Comment on above: Performed By: #### 2 57321 ####[facility],[address] [place] [address] 96803 eGFR(AA) 45 ML/MINUTE Low 60 - 999 [facility] Comment on above: Result Comment: ACCO RDING TO THE NATIONAL KIDNEY DISEASE EDUCATION PROGRAM(NKDE), A NORMAL eGFRIS A VALUE GREATER THAN OR EQUAL TO 60 ML/MIN/1.73 SQ METERS.CHRONIC KIDNEY DISEASE: <60mL/MIN/1.73 SQ METERSKIDNEY FAILURE: <15mL/MIN/1.73 SQ METERSTHIS TEST SHOULD ONLY BE USED FOR PATIENTS 18 YEARS OF AGE AND OLDER. Performed By: #### 2 52445 ####[facility],[address] [place] [address] 75252 Glucose [Mass/Vol] 333 mg/dL High 74 - 106 [facility] Comment on above: Performed By: #### 2 75774 ####[facility],[address] [place] [address] 79343 Potassium [Moles/Vol] 4.0 mmol/L Normal 3.5 - 5.1 [facility] Comment on above: Performed By: #### 2 82328 ####[address] [address] Sodium [Moles/Vol] 137 mmol/L Normal 136 - 145 [facility] Comment on above: Performed By: #### 2 08209 ####[address] [address] Urea nitrogen [Mass/Vol] 18 mg/dL Normal 7 - 18 [facility] Comment on above: Performed By: #### 2 25771 ####[address] [address] CBC + DIFFon 04-03-2024 Baso # 0.02 x10EE3/UL Normal 0.00 - 0.10 [facility] Comment on above: Performed By: #### 2 54782 ####[address] [address] Basophils/100 WBC (Bld) 0.3 % Normal 0.0 - 2.0 [facility] Comment on above: Performed By: #### 2 84037 ####[facility],[address] [place] [address] 99292 CBC + DIFF Normal [facility] Comment on above: Result Comment: CBC- COMPLETE BLOOD COUNT Performed By: #### 2 75487 ####[facility],[address] [place] [address] 84656 EO # 0.06 x10EE3/UL Normal 0.00 - 0.50 [facility] Comment on above: Performed By: #### 2 62498 ####[place] [id number] Eosinophils/100 WBC (Bld) 0.7 % Normal 0.0 - 7.0 [facility] Comment on above: Performed By: #### 2 05847 ####[place] [id number] Erythrocyte distribution width (RBC) [Ratio] 13.6 % Normal 12.0 - 15.6 [facility] Comment on above: Performed By: #### 2 83534 ####[facility],[address] [place], [place] [id number] Hematocrit (Bld) [Volume fraction] 46.1 % High 34.0 - 46.0 [facility] Comment on above: Performed By: #### 2 01475 ####[facility],[address] [place] [address] 72557 Hemoglobin (Bld) [Mass/Vol] 15.7 g/dL Normal 12.0 - 16.0 [facility] Comment on above: Performed By: #### 2 30554 ####[address] [address] Lymph # 0.62 x10EE3/UL Low 0.80 - 2.80 [facility] Comment on above: Performed By: #### 2 33988 ####[address] [address] Lymphocytes/100 WBC (Bld) 7.8 % Low 20.0 - 45.0 [facility] Comment on above: Performed By: #### 2 92473 ####[facility],[address] [place] [address] MANUAL DIFF N/A Normal [facility] Comment on above: Performed By: #### 2 23782 ####[facility],[address] [place] [address] MCH (RBC) [Entitic mass] 29 pg Normal 27 - 33 [facility] Comment on above: Performed By: #### 2 80977 ####[facility],[address] [place] [address] MCHC 34 X10 3 Normal 32 - 36 [facility] Comment on above: Performed By: #### 2 58997 ####[facility],[address] [place] [address] MCV (RBC) [Entitic vol] 85 fL Normal 80 - 99 [facility] Comment on above: Performed By: #### 2 80081 ####[facility],[address] [place] [address] Nolan # 0.35 x10EE3/UL Normal 0.20 - 1.00 [facility] Comment on above: Performed By: #### 2 42523 ####[facility],[address] [place] [address] MONOS % 4.4 % Normal 0.0 - 10.0 [facility] Comment on above: Performed By: #### 2 73429 ####[facility],[address] [place] [address] Morphology Abdon (Bld) [Interp] N/A Normal [facility] Comment on above: Performed By: #### 2 45282 ####[facility],[address] [place] [address] Neut # 6.92 x10EE3/UL Normal 1.50 - 7.10 [facility] Comment on above: Performed By: #### 2 24172 ####[facility],[address],[place] [address] Neutrophils/100 WBC (Bld) 86.8 % High 46.0 - 76.0 [facility] Comment on above: Performed By: #### 2 53656 ####[facility],[address] [place] [address] 59987 PLATELET 175 x10EE3/UL Normal 150 - [address] [facility] Comment on above: Performed By: #### 2 17025 ####[facility],[address] [place] [address] 86441 Platelet mean volume (Bld) [Entitic vol] 8.5 fL Normal 6.6 - 10.5 [facility] Comment on above: Result Comment: AUTO MATED DIFFERENTIAL Performed By: #### 2 93481 ####[facility],[address] [place] [address] 93134 RBC 5.42 x 10EE6/UL High 4.10 - 5.30 [facility] Comment on above: Performed By: #### 2 22701 ####[facility],[address] [place] [address] 01274 WBC 8.0 x 10EE3/UL Normal 4.5 - 10.8 [facility] Comment on above: Performed By: #### 2 53910 ####[facility],[address] [place] [address] 10664 CBC + DIFF DAILYon 5 Baso # 0.02 x10EE3/UL Normal 0.00 - 0.10 [facility] Comment on above: Performed By: #### 2 33564 ####[facility],[address] [place] [address] 32147 Basophils/100 WBC (Bld) 0.3 % Normal 0.0 - 2.0 [facility] Comment on above: Performed By: #### 2 05119 ####[facility],[address] [place] [address] 05675 CBC + DIFF DAILY Normal [facility] Comment on above: Result Comment: CBC- COMPLETE BLOOD COUNT Performed By: #### 2 84487 ####[place] [address] EO # 0.01 x10EE3/UL Normal 0.00 - 0.50 [facility] Comment on above: Performed By: #### 2 81871 ####[place] [address] Eosinophils/100 WBC (Bld) 0.2 % Normal 0.0 - 7.0 [facility] Comment on above: Performed By: #### 2 32875 ####[place] [address] Erythrocyte distribution width (RBC) [Ratio] 13.9 % Normal 12.0 - 15.6 [facility] Comment on above: Performed By: #### 2 62315 ####[place] [address] Hematocrit (Bld) [Volume fraction] 41.7 % Normal 34.0 - 46.0 [facility] Comment on above: Performed By: #### 2 85538 ####[place] [address] Hemoglobin (Bld) [Mass/Vol] 13.8 g/dL Normal 12.0 - 16.0 [facility] Comment on above: Performed By: #### 2 71524 ####[place] [address] Lymph # 0.39 x10EE3/UL Low 0.80 - 2.80 [facility] Comment on above: Performed By: #### 2 99822 ####[place] [address] Lymphocytes/100 WBC (Bld) 5.8 % Low 20.0 - 45.0 [facility] Comment on above: Performed By: #### 2 36625 ####[place] [id number] MANUAL DIFF N/A Normal [facility] Comment on above: Performed By: #### 2 29411 ####[facility],[address] [place] [address] MCH (RBC) [Entitic mass] 28 pg Normal 27 - 33 [facility] Comment on above: Performed By: #### 2 16168 ####[facility],[address] [place] [address] MCHC 33 X10 3 Normal 32 - 36 [facility] Comment on above: Performed By: #### 2 55340 ####[facility],[address] [place] [address] MCV (RBC) [Entitic vol] 85 fL Normal 80 - 99 [facility] Comment on above: Performed By: #### 2 25125 ####[facility],[address] [place] [address] Nolan # 0.40 x10EE3/UL Normal 0.20 - 1.00 [facility] Comment on above: Performed By: #### 2 06515 ####[facility],[address] [place] [address] MONOS % 5.9 % Normal 0.0 - 10.0 [facility] Comment on above: Performed By: #### 2 48836 ####[facility],[address] [place] [address] Morphology Abdon (Bld) [Interp] N/A Normal [facility] Comment on above: Performed By: #### 2 63010 ####[facility],[address] [place] [address] Neut # 5.95 x10EE3/UL Normal 1.50 - 7.10 [facility] Comment on above: Performed By: #### 2 53860 ####[facility],[address] [place] [address] Neutrophils/100 WBC (Bld) 87.7 % High 46.0 - 76.0 [facility] Comment on above: Performed By: #### 2 92279 ####[facility],[address] [place] [address] 39750 PLATELET 170 x10EE3/UL Normal 150 - [address] [facility] Comment on above: Performed By: #### 2 46302 ####[facility],[address] [place] [address] 61450 Platelet mean volume (Bld) [Entitic vol] 8.6 fL Normal 6.6 - 10.5 [facility] Comment on above: Result Comment: AUTO MATED DIFFERENTIAL Performed By: #### 2 85889 ####[facility],[address] [place], [place] [id number] RBC 4.89 x 10EE6/UL Normal 4.10 - 5.30 [facility] Comment on above: Performed By: #### 2 69931 ####[facility],[address] [place], [place] [id number] WBC 6.8 x 10EE3/UL Normal 4.5 - 10.8 [facility] Comment on above: Performed By: #### 2 99457 ####[facility],[address] [place] [address] 73296 CHEST 1 VIEWon 04-03-2024 CHEST 1 VIEW Normal [facility] CMP with eGFRon 04-03-2024 AGE 73 years Normal [facility] Comment on above: Performed By: #### 2 73876 ####[facility],[address] [place] [address] 15213 Albumin [Mass/Vol] 3.3 g/dL Low 3.4 - 5.0 [facility] Comment on above: Performed By: #### 2 70536 ####[facility],[address] [place] [address] 84518 Albumin/Globulin [Mass ratio] 0.6 {ratio} Low 0.9 - 1.6 [facility] Comment on above: Performed By: #### 2 18434 ####[facility],[address] [place] [address] 93689 ALK PHOS 117 U/L High 46 - 116 [facility] Comment on above: Performed By: #### 2 39671 ####[facility],[address] [place] [address] 68879 ALT [Catalytic activity/Vol] 27 U/L Normal 16 - 63 [facility] Comment on above: Performed By: #### 2 03195 ####[facility],[address] [place] [address] 88990 Anion gap [Moles/Vol] 12 mmol/L Normal 10 - 20 [facility] Comment on above: Performed By: #### 2 47372 ####[facility],[address] [place] [address] 91744 AST [Catalytic activity/Vol] 24 U/L Normal 13 - 39 [facility] Comment on above: Performed By: #### 2 22286 ####[facility],[address] [place] [address] 75207 B/C RATIO 17 ratio Normal 0 - 30 [facility] Comment on above: Performed By: #### 2 29524 ####[facility],[address] [place] [address] 65860 Bilirubin [Mass/Vol] 1.0 mg/dL Normal 0.2 - 1.0 [facility] Comment on above: Performed By: #### 2 49639 ####[facility],[address] [place] [address] 77786 Calcium [Mass/Vol] 9.1 mg/dL Normal 8.5 - 10.1 [facility] Comment on above: Performed By: #### 2 02889 ####[facility],[address] [place] [address] 68246 Chloride [Moles/Vol] 102 mmol/L Normal 98 - 107 [facility] Comment on above: Performed By: #### 2 00848 ####[facility],[address] [place] [address] 30968 CMP with eGFR Normal [facility] Comment on above: Result Comment: COMP REHENSIVE METABOLIC PANEL Performed By: #### 2 47509 ####[facility],[address] [place] [address] 03885 CO2 [Moles/Vol] 27.8 mmol/L Normal 21.0 - 32.0 [facility] Comment on above: Performed By: #### 2 26226 ####[facility],[address] [place] [address] 85077 Creatinine [Mass/Vol] 1.31 mg/dL High 0.55 - 1.02 [facility] Comment on above: Performed By: #### 2 61886 ####[facility],[address] [place] [address] 19529 eGFR 40 ML/MINUTE Low 60 - 999 [facility] Comment on above: Performed By: #### 2 85584 ####[facility],[address] [place] [address] 98659 eGFR(AA) 48 ML/MINUTE Low 60 - 999 [facility] Comment on above: Result Comment: ACCO RDING TO THE NATIONAL KIDNEY DISEASE EDUCATION PROGRAM(NKDE), A NORMAL eGFRIS A VALUE GREATER THAN OR EQUAL TO 60 ML/MIN/1.73 SQ METERS.CHRONIC KIDNEY DISEASE: <60mL/MIN/1.73 SQ METERSKIDNEY FAILURE: <15mL/MIN/1.73 SQ METERSTHIS TEST SHOULD ONLY BE USED FOR PATIENTS 18 YEARS OF AGE AND OLDER. Performed By: #### 2 87504 ####[facility],[address] [place] [address] 21802 Globulin (S) [Mass/Vol] 5.1 g/dL High 1.5 - 3.8 [facility] Comment on above: Performed By: #### 2 57931 ####[facility],[address] [place] [address] 73748 Glucose [Mass/Vol] 294 mg/dL High 74 - 106 [facility] Comment on above: Performed By: #### 2 69862 ####[facility],[address] [place], [place] [id number] Potassium [Moles/Vol] 3.8 mmol/L Normal 3.5 - 5.1 [facility] Comment on above: Performed By: #### 2 56419 ####[facility],[address] [place] [address] Protein [Mass/Vol] 8.4 g/dL High 6.4 - 8.2 [facility] Comment on above: Performed By: #### 2 78155 ####[facility],[address] [place] [address] Sodium [Moles/Vol] 138 mmol/L Normal 136 - 145 [facility] Comment on above: Performed By: #### 2 30801 ####[facility],[address] [place] [address] Urea nitrogen [Mass/Vol] 22 mg/dL High 7 - 18 [facility] Comment on above: Performed By: #### 2 52513 ####[facility],[address] [place] [address] CORONAVIRUS (SARS) ANTIGEN T ESTon 04-03-2024 EXTERNAL QC DONE? YES Normal [facility] Comment on above: Performed By: #### 2 39729 ####[facility],[address] [place] [address] INTERNAL CONTROL PASS Normal [facility] Comment on above: Performed By: #### 2 76342 ####[facility],[address] [place] [address] SARS ANTIGEN Negative Normal NORMAL: NEGATIVE [facility] Comment on above: Performed By: #### 2 26653 ####[facility],[address] [place] [address] SEND TO ? NO Normal [facility] Comment on above: Result Comment: SARS -CoV-2THIS TEST IS BEING USED UNDER THE FDA EUA PROCEDURE. THIS ASSAY HAS BEENVALIDATED AT [facility] FOR USE WITH NASAL AND NASOPHARYNGEAL SWABSPECIMENS.INTERPRETIVE DATATEST RESULTS SHOULD ALWAYS BE CONSIDERED IN THE CONTEXT OF CLINICALOBSERVATIONS AND EPIDEMIOLOGICAL DATA IN MAKING FINAL DIAGNOSIS AND PATIENTMANAGEMENT DECISIONS. PATIENT MANAGEMENT SHOULD FOLLOW CURRENT CDC GUIDELINES.THE PEGGY SARS ANTIGEN KAYLYN DOES NOT DIFFERENTIATE BETWEEN SARS-CoV & SARS-CoV-2.A POSITIVE TEST RESULT INDICATES THE PRESENCE OF SARS-CoV-2 NUCLEOCAPSID PROTEINANTIGEN, AND THE PATIENT IS INFECTED WITH THE VIRUS AND PRESUMED TO BECONTAGIOUS.A NEGATIVE TEST RESULT FOR THIS TEST MEANS THAT SARS-CoV-2 NUCLEOCAPSID PROTEINANTIGEN WAS NOT PRESENT IN THE SPECIMEN ABOVE THE LIMIT OF DETECTION. HOWEVER, ANEGATIVE RESULT DOES NOT RULE OUT COVID-19 AND SHOULD NOT BE USED THE SOLEBASIS FOR TREATMENT OR PATIENT MANAGEMENT DECISIONS. A NEGATIVE RESULT DOES NOTEXCLUDE THE POSSIBILITY OF COVID-19. NEGATIVE RESULTS, FROM PATIENTS WITHSYMPTOM ONSET BEYOND FIVE DAYS, SHOULD BE TREATED PRESUMPTIVE ANDCONFIRMATION WITH A MOLECULAR ASSAY, IF NECESSARY, FOR PATIENT MANAGEMENT, MAYBE PERFORMED.WHEN DIAGNOSTIC TESTING IS NEGATIVE, THE POSSIBLILTY OF A FALSE NEGATIVE RESULTSHOULD BE CONSIDERED IN THE CONTEXT OF A PATIENT'S RECENT EXPOSURES AND THEPRESENCE OF CLINICAL SIGNS AND SYMPTOMS CONSISTENT WITH COVID-19. THEPOSSIBILITY OF A FALSE NEGATIVE RESULT SHOULD ESPECIALLY BE CONSIDERED IF THEPATIENT'S RECENT EXPOSURES OR CLINICAL PRESENTATION INDICATE THAT COVID-19 ISLIKELY, AND DIAGNOSTIC TESTS FOR OTHER CAUSES OF ILLNESS (e.g., OTHERRESPIRATORY ILLNESS) ARE NEGATIVE. IF COVID-19 IS STILL SUSPECTED BASED ONEXPOSURE HISTORY TOGETHER WITH OTHER CLINICAL FINDINGS, RE-TESTING SHOULD BECONSIDERED BY HEALTHCARE PROVIDERS IN CONSULTATION WITH PUBLIC HEALTHAUTHORITIES. Performed By: #### 2 [id number] ####[facility],[address] [place], [place] [id number] CT CHEST (PE PROTOCOL)on CT CHEST (PE PROTOCOL) Normal [facility] CULTURE BLOOD [ZA]on Microscopic examination of blood, culture CULTURE BLOOD [ZA] _BLO[facility] CULTURE_ [facility] AND ATTACHMENTS FOR SCANNED REPORT 04/09/24.1009.DNP.COMPLET E Normal [facility] Comment on above: Performed By: #### 2 [id number] ####[facility],[address] [place] [address] Microscopic examination of blood, culture CULTURE BLOOD [HERSEY] _BLOOD CULTURE_ GO TO [facility] REPORTS AND ATTACHMENTS FOR SCANNED REPORT 04/09/24.1008.DNP.COMPLET E Normal [facility] Comment on above: Performed By: #### 2 [id number] ####[facility],[address] [place] [address] CVFLURVon 04-03-2024 FLU A PCR Positive Abnormal Negative [facility] Comment on above: Result Comment: This organism causes a reportable disease. Infection Control has been notified. Results have been reported to the [facility]. Notes [id number] Performed By: #### C VFLURV #### [place] [address] FLU B PCR Negative Normal Negative [facility] Comment on above: Result Comment: Note s [id number] Performed By: #### C VFLURV #### [place] [address] RSV PCR Negative Normal Negative [facility] Comment on above: Result Comment: Note s [id number] Performed By: #### C VFLURV #### [place] [address] SARS-CoV-2 (COVID-19) RNA HARLEY+probe Ql (Unsp spec) Negative Normal Negative [facility] Comment on above: Result Comment: Note s [id number] This test has been authorized by FDA under an EUA for use by authorized laboratories and has not been FDA cleared or approved. Results from the Xpert Xpress SARS-CoV-2/Flu/RSV or Xpert Xpress SARS-CoV-2 only test should be correlated with the clinical history, epidemiological data, and other data available to the clinician evaluating the patient. Performance of the Xpert Xpress SARS-CoV-2/Flu/RSV or Xpert Xpress SARS-CoV-2 only test has only been established in nasopharyngeal swab specimens. Erroneous test results might occur from improper specimen collection; failure to follow the recommended sample collection, handling, and storage procedures; technical error; or sample mix-up.False negative results may occur if virus is present at levels below the analytical limit of detection. Viral nucleic acid may persist in vivo, independent of virus viability. Detection of analyte target(s) does not imply that the corresponding virus(es) are infectious or are the causative agents for clinical symptoms.Recent patient exposure to FluMist or other live attenuated influenza vaccines may cause inaccurate positive results. Performed By: #### C VFLURV #### [place] [address] D-DIMER, QUANTITATIVEon 03-21 D-DIMER QUANT 648 ng/ml High 0 - [address] [facility] Comment on above: Performed By: #### 2 42301 ####[facility],[address] [place], [place] [id number] D-DIMER, QUANTITATIVE Normal [facility] Comment on above: Result Comment: MIREILLE T D-DIMER Performed By: #### 2 35994 ####[facility],[address] [place], [place] [id number] HEMOGLOBIN A1C (POM)on 04-03 Glucose [Mass/Vol] 266.1 mg/dL High 0.0 - 0.0 [facility] Comment on above: Result Comment: BLDo HEMOGLOBIN A1C REFERENCE RANGESBLDo Suggested Diagnosis HbA1c(%) HbA1C (mmol/mol Diabetic >/=6.5 >/=48 Prediabetes 5.7 - 6.4 39 - 47 Normal <5.7 <39 Performed By: #### 2 [id number] ####[place] [id number] HbA1c (Bld) [Mass fraction] 10.9 % High 0.0 - 6.5 [facility] Comment on above: Performed By: #### 2 39425 ####[facility],[address] [place], [place] [id number] INFLUENZA VIRUS RAPID A/Bon 04-03-2024 INFLUENZA VIRUS RAPID A/B Normal [facility] Comment on above: Performed By: #### 2 51812 ####[facility],[address] [place] [address] LACTATEon 04-03-2024 Lactate [Moles/Vol] 1.3 mmol/L Normal 0.4 - 2.0 [facility] Comment on above: Performed By: #### 2 22893 ####[facility],[address] [place] [address] NT-proBNPon 04-03-2024 Natriuretic peptide B (Bld) [Mass/Vol] 2615 pg/mL High 0 - 125 [facility] Comment on above: Performed By: #### 2 56804 ####[facility],[address] [place] [address] 25394 RSVon 04-03-2024 RSV Normal [facility] Comment on above: Performed By: #### 2 17314 ####[facility],[address] [place] [address] 86682 TROPONINon 04-03-2024 HS TROPONIN 23.2 pg/mL Normal 0.0 - 51.4 [facility] Comment on above: Performed By: #### 2 57256 ####[facility],[address] [place] [address] 93096 URINALYSISon 04-03-2024 Amorphous NONE Normal [facility] Comment on above: Performed By: #### 2 87699 ####[facility],[address] [place] [address] 13932 Bacteria 4+ Normal [facility] Comment on above: Performed By: #### 2 82091 ####[facility],[address] [place] [address]605 Bilirubin Ql (U) Negative Normal NORMAL: NEGATIVE [facility] Comment on above: Performed By: #### 2 60159 ####[facility],[address] [place] [address] 66124 Casts NONE Normal [facility] Comment on above: Performed By: #### 2 58714 ####[facility],[address] [place] [address]13 Clarity (U) sl.cloudy Normal NORMAL: CLEAR [facility] Comment on above: Performed By: #### 2 38662 ####[facility],[address] [place] [address] 91041 Color (U) yellow Normal NORMAL: YELLOW [facility] Comment on above: Performed By: #### 2 93599 ####[facility],[address] [place] [address] Crystals LM Nom (Urine sed) NONE Normal [facility] Comment on above: Performed By: #### 2 54173 ####[facility],[address] [place], [place] [phone] Epi Cells MANY Normal [facility] Comment on above: Performed By: #### 2 99381 ####[facility],[address] [place] [address] 11558 Glucose Ql (U) 250 Abnormal NORMAL: NORMAL [facility] Comment on above: Performed By: #### 2 41076 ####[facility],[address] [place] [address] 56019 Hemoglobin Ql (U) 50 Abnormal NORMAL: NEGATIVE [facility] Comment on above: Performed By: #### 2 65883 ####[facility],[address] [place] [address] 63592 Ketone 15 Abnormal NORMAL: NEGATIVE [facility] Comment on above: Performed By: #### 2 12868 ####[facility],[address] [place] [address] 75682 Leukocytes Negative Normal NORMAL: NEGATIVE [facility] Comment on above: Performed By: #### 2 70973 ####[facility],[address] [place] [address] 10221 Mucous NONE Normal [facility] Comment on above: Performed By: #### 2 19883 ####[facility],[address] [place] [address] 98104 Nitrite Ql (U) Positive Normal NORMAL: NEGATIVE [facility] Comment on above: Performed By: #### 2 37125 ####[facility],[address] [place] [address] 66616 pH (U) 5 [pH] Normal NORMAL: 5.0-8.0 [facility] Comment on above: Performed By: #### 2 07406 ####[facility],[address] [place] [address] Protein Ql (U) 500 Abnormal NORMAL: NEGATIVE [facility] Comment on above: Performed By: #### 2 72505 ####[facility],[address] [place] [address] Rbc 0-5 Normal 0-3/hpf [facility] Comment on above: Performed By: #### 2 29642 ####[facility],[address] [place] [address] Sp Saxton 1.020 Normal NORMAL: 1.010-1.030 [facility] Comment on above: Performed By: #### 2 14969 ####[facility],[address] [place] [address] Specimen Type R Normal [facility] Comment on above: Performed By: #### 2 21754 ####[facility],[address] [place], [place] [phone] Urinalysis dipstick W Reflex Microscopic panel (U) SEE BELOW Normal [facility] Comment on above: Result Comment: MICR OSCOPIC Performed By: #### 2 66875 ####[facility],[address] [place], [place] [phone] Urobilinog NORM Normal NORMAL: NORMAL [facility] Comment on above: Performed By: #### 2 22338 ####[facility],[address] [place] [address] 03989 Wbc 16-25 Normal 0-5/hpf [facility] Comment on above: Performed By: #### 2 07872 ####[facility],[address] [place] [address] 89413 Yeast NONE Normal [facility] Comment on above: Performed By: #### 2 30845 ####[facility],[address] [place] [address] 53038 CBLon 07-03-2023 CBL Normal [facility] ([place]) .Auto Diffon 04-18-2023 Basophil, Absolute 0.1 10 3/mcL Normal 0.0-0.3 [facility] ([place]) Comment on above: Performed By: #### P HOS, CBC, PBNP, BMP, ADIFF, GFR, MG, HFP, ANEU ####[address] [address] Basophils/100 WBC (Bld) 1.1 % Normal 0.0-2.5 [facility] ([place]) Comment on above: Performed By: #### P HOS, CBC, PBNP, BMP, ADIFF, GFR, MG, HFP, ANEU ####[address] [address] Eosinophil, Absolute 0.3 10 3/mcL Normal 0.0-0.7 [facility] ([place]) Comment on above: Performed By: #### P HOS, CBC, PBNP, BMP, ADIFF, GFR, MG, HFP, ANEU ####[address] [address] Eosinophils/100 WBC (Bld) 5.6 % Normal 0.0-6.0 [facility] ([place]) Comment on above: Performed By: #### P HOS, CBC, PBNP, BMP, ADIFF, GFR, MG, HFP, ANEU ####[address] [address] Lymphocyte, Absolute 1.2 10 3/mcL Normal 0.9-4.3 [facility] ([place]) Comment on above: Performed By: #### P HOS, CBC, PBNP, BMP, ADIFF, GFR, MG, HFP, ANEU ####[address] [address] Lymphocytes/100 WBC (Bld) 22.1 % Normal 20.0-40.0 [facility] ([place]) Comment on above: Performed By: #### P HOS, CBC, PBNP, BMP, ADIFF, GFR, MG, HFP, ANEU ####[address] [address] Monocyte, Absolute 0.7 10 3/mcL Normal 0.1-1.4 [facility] ([place]) Comment on above: Performed By: #### P HOS, CBC, PBNP, BMP, ADIFF, GFR, MG, HFP, ANEU ####[address] [address] Monocytes/100 WBC (Bld) 12.8 % Normal 2.0-13.0 [facility] ([place]) Comment on above: Performed By: #### P HOS, CBC, PBNP, BMP, ADIFF, GFR, MG, HFP, ANEU ####[address] [address] Neutrophils/100 WBC (Bld) 58.4 % Normal 50.0-75.0 [facility] ([place]) Comment on above: Performed By: #### P HOS, CBC, PBNP, BMP, ADIFF, GFR, MG, HFP, ANEU ####[address] [address] .GFRon 04-18-2023 GFR 51 ml/min/1.73sqm Normal [facility] ([place]) Comment on above: Result Comment: GFR Population mean for , Non- Americans Ages 20-29 = 116 mL/min/1.73 sq.m. Ages 30-39 = 107 mL/min/1.73 sq.m. Ages 40-49 = 99 mL/min/1.73 sq.m. Ages 50-59 = 93 mL/min/1.73 sq.m. Ages 60-69 = 85 mL/min/1.73 sq.m. Ages 70+ = 75 mL/min/1.73 sq.m.Chronic Kidney Disease: Less than 60 mL/min/1.73 square metersEnd Stage Renal Disease: Less than 15 mL/min/1.73 square meters Performed By: #### P HOS, CBC, PBNP, BMP, ADIFF, GFR, MG, HFP, ANEU ####[address] [address] GFR Non- 42 ml/min/1.73sqm Normal [facility] ([place]) Comment on above: Result Comment: GFR Population mean for , Non- Americans Ages 20-29 = 116 mL/min/1.73 sq.m. Ages 30-39 = 107 mL/min/1.73 sq.m. Ages 40-49 = 99 mL/min/1.73 sq.m. Ages 50-59 = 93 mL/min/1.73 sq.m. Ages 60-69 = 85 mL/min/1.73 sq.m. Ages 70+ = 75 mL/min/1.73 sq.m.Chronic Kidney Disease: Less than 60 mL/min/1.73 square metersEnd Stage Renal Disease: Less than 15 mL/min/1.73 square meters Performed By: #### P HOS, CBC, PBNP, BMP, ADIFF, GFR, MG, HFP, ANEU ####[place] [address] .NEUABSon 04-18-2023 Neutrophil, Absolute 3.2 10 3/mcL Normal 2.3-8.1 [facility] ([place]) Comment on above: Performed By: #### P HOS, CBC, PBNP, BMP, ADIFF, GFR, MG, HFP, ANEU ####[place] [address] BMPon 04-18-2023 BUN/Creatinine Ratio 16.0 ratio Normal 10.0-22.0 [facility] ([place]) Comment on above: Performed By: #### P HOS, CBC, PBNP, BMP, ADIFF, GFR, MG, HFP, ANEU ####[address] [address] Calcium [Mass/Vol] 8.5 mg/dL Low 8.7-10.4 [facility] ([place]) Comment on above: Performed By: #### P HOS, CBC, PBNP, BMP, ADIFF, GFR, MG, HFP, ANEU ####[address] [address] Chloride [Moles/Vol] 109 mmol/L Normal 98-110 [facility] ([place]) Comment on above: Performed By: #### P HOS, CBC, PBNP, BMP, ADIFF, GFR, MG, HFP, ANEU ####[address] [address] CO2 [Moles/Vol] 24 mmol/L Normal 22-32 [facility] ([place]) Comment on above: Performed By: #### P HOS, CBC, PBNP, BMP, ADIFF, GFR, MG, HFP, ANEU ####[address] [address] Creatinine [Mass/Vol] 1.25 mg/dL High 0.50-1.20 [facility] ([place]) Comment on above: Performed By: #### P HOS, CBC, PBNP, BMP, ADIFF, GFR, MG, HFP, ANEU ####[address] [address] Electrolyte Balance 7.0 mEq/L Normal 4.0-15.0 [facility] ([place]) Comment on above: Performed By: #### P HOS, CBC, PBNP, BMP, ADIFF, GFR, MG, HFP, ANEU ####[address] [address] Glucose [Mass/Vol] 207 mg/dL High 82-115 [facility] ([place]) Comment on above: Performed By: #### P HOS, CBC, PBNP, BMP, ADIFF, GFR, MG, HFP, ANEU ####[address] [address] Potassium [Moles/Vol] 4.0 mmol/L Normal 3.5-5.0 [facility] ([place]) Comment on above: Performed By: #### P HOS, CBC, PBNP, BMP, ADIFF, GFR, MG, HFP, ANEU ####[address] [address] Sodium [Moles/Vol] 140 mmol/L Normal 136-145 [facility] ([place]) Comment on above: Performed By: #### P HOS, CBC, PBNP, BMP, ADIFF, GFR, MG, HFP, ANEU ####[place] [address] Urea nitrogen [Mass/Vol] 20.0 mg/dL Normal 8.0-22.0 [facility] ([place]) Comment on above: Performed By: #### P HOS, CBC, PBNP, BMP, ADIFF, GFR, MG, HFP, ANEU ####[place] [address] CBCon 04-18-2023 Erythrocyte distribution width (RBC) [Ratio] 16.4 % High 11.5-15.5 [facility] ([place]) Comment on above: Performed By: #### P HOS, CBC, PBNP, BMP, ADIFF, GFR, MG, HFP, ANEU ####[place] [address] Hematocrit (Bld) [Volume fraction] 39.2 % Normal 34.0-46.0 [facility] ([place]) Comment on above: Performed By: #### P HOS, CBC, PBNP, BMP, ADIFF, GFR, MG, HFP, ANEU ####[place] [address] Hgb 12.9 G/dL Normal 12.0-16.0 [facility] ([place]) Comment on above: Performed By: #### P HOS, CBC, PBNP, BMP, ADIFF, GFR, MG, HFP, ANEU ####[place] [address] MCH (RBC) [Entitic mass] 27.7 pg Normal 27.0-33.0 [facility] ([place]) Comment on above: Performed By: #### P HOS, CBC, PBNP, BMP, ADIFF, GFR, MG, HFP, ANEU ####[place] [address] MCHC 32.9 G/dL Normal 32.0-36.0 [facility] ([place]) Comment on above: Performed By: #### P HOS, CBC, PBNP, BMP, ADIFF, GFR, MG, HFP, ANEU ####[place] [address] MCV (RBC) [Entitic vol] 84.1 fL Normal 80.0-99.0 [facility] ([place]) Comment on above: Performed By: #### P HOS, CBC, PBNP, BMP, ADIFF, GFR, MG, HFP, ANEU ####[place] [address] Platelet 161 10 3/mcL Normal 150-450 [facility] ([place]) Comment on above: Performed By: #### P HOS, CBC, PBNP, BMP, ADIFF, GFR, MG, HFP, ANEU ####[place] [address] Platelet mean volume (Bld) [Entitic vol] 9.7 fL Normal 6.6-10.5 [facility] ([place]) Comment on above: Performed By: #### P HOS, CBC, PBNP, BMP, ADIFF, GFR, MG, HFP, ANEU ####[place] [address] RBC 4.66 10 6/mcL Normal 4.10-5.30 [facility] ([place]) Comment on above: Performed By: #### P HOS, CBC, PBNP, BMP, ADIFF, GFR, MG, HFP, ANEU ####[place] [address] WBC 5.5 10 3/mcL Normal 4.5-10.8 [facility] ([place]) Comment on above: Performed By: #### P HOS, CBC, PBNP, BMP, ADIFF, GFR, MG, HFP, ANEU ####[place] [address] HFPon 04-18-2023 Bili Indirect 0.3 mg/dL Normal 0.1-10.0 [facility] ([place]) Comment on above: Performed By: #### P HOS, CBC, PBNP, BMP, ADIFF, GFR, MG, HFP, ANEU ####[place] [address] Albumin Level 2.5 G/dL Low 3.2-4.8 [facility] ([place]) Comment on above: Performed By: #### P HOS, CBC, PBNP, BMP, ADIFF, GFR, MG, HFP, ANEU ####[place] [address] Albumin/Globulin [Mass ratio] 0.7 {ratio} Low 0.9-1.6 [facility] ([place]) Comment on above: Performed By: #### P HOS, CBC, PBNP, BMP, ADIFF, GFR, MG, HFP, ANEU ####[address] [address] ALP [Catalytic activity/Vol] 64 U/L Normal 38-126 [facility] ([place]) Comment on above: Performed By: #### P HOS, CBC, PBNP, BMP, ADIFF, GFR, MG, HFP, ANEU ####[place] [id number] ALT [Catalytic activity/Vol] 12 U/L Normal 10-49 [facility] ([place]) Comment on above: Performed By: #### P HOS, CBC, PBNP, BMP, ADIFF, GFR, MG, HFP, ANEU ####[place] [id number] AST [Catalytic activity/Vol] 22 U/L Normal 8-34 [facility] ([place]) Comment on above: Performed By: #### P HOS, CBC, PBNP, BMP, ADIFF, GFR, MG, HFP, ANEU ####[place] [id number] Bili Direct 0.2 mg/dL Normal 0.0-0.4 [facility] ([place]) Comment on above: Result Comment: Use of this assay is not recommended for patients undergoing treatment with eltrombopag due to the potential for falsely elevated results. Performed By: #### P HOS, CBC, PBNP, BMP, ADIFF, GFR, MG, HFP, ANEU ####[place] [address] Bili Total 0.50 mg/dL Normal 0.20-1.20 [facility] ([place]) Comment on above: Result Comment: Use of this assay is not recommended for patients undergoing treatment with eltrombopag due to the potential for falsely elevated results. Performed By: #### P HOS, CBC, PBNP, BMP, ADIFF, GFR, MG, HFP, ANEU ####[place] [id number] [address] [place] [address] Globulin 3.4 G/dL Normal 1.5-3.8 [facility] ([place]) Comment on above: Performed By: #### P HOS, CBC, PBNP, BMP, ADIFF, GFR, MG, HFP, ANEU ####[place] [id number] [address] [place] [address] Total Protein 5.9 G/dL Normal 5.7-8.2 [facility] ([place]) Comment on above: Result Comment: No te - New Reference Range in effect 19 Performed By: #### P HOS, CBC, PBNP, BMP, ADIFF, GFR, MG, HFP, ANEU ####[address] [address] LABORATORYOrdered By: Adalberto Diaz on 04-18-2023 Blood Glucose Testing Reason Routine (04/18/23 4:09 PM) [facility] Glucose [Mass/Vol] 179 mg/dL High 82 - 115 mg/dL [facility] LABORATORYOrdered By: Ladarius Geronimo on 04-18-2023 Blood Glucose Testing Reason Routine (04/18/23 11:41 AM) [facility] Glucose [Mass/Vol] 178 mg/dL High 82 - 115 mg/dL [facility] Blood Glucose Testing Reason Routine (04/18/23 7:42 AM) [facility] Glucose [Mass/Vol] 153 mg/dL High 82 - 115 mg/dL [facility] LABORATORYOrdered By: SYSTEM SYSTEM on 04-18-2023 Basophils (Bld) [#/Vol] 0.1 103/mcL Normal 0.0 - 0.3 10^3/mcL AH Workflow SS Basophils/100 WBC (Bld) 1.1 % Normal 0.0 - 2.5 % [facility] Workflow SS Eosinophils (Bld) [#/Vol] 0.3 103/mcL Normal 0.0 - 0.7 10^3/mcL [facility] Workflow SS Eosinophils/100 WBC (Bld) 5.6 % Normal 0.0 - 6.0 % [facility] Workflow SS Erythrocyte distribution width (RBC) [Ratio] 16.4 % High 11.5 - 15.5 % [facility] Workflow SS Hematocrit (Bld) [Volume fraction] 39.2 % Normal 34.0 - 46.0 % AH Workflow SS Hemoglobin (Bld) [Mass/Vol] 12.9 G/dL Normal 12.0 - 16.0 G/dL [facility] Workflow SS Lymphocytes (Bld) [#/Vol] 1.2 103/mcL Normal 0.9 - 4.3 10^3/mcL [facility] Workflow SS Lymphocytes/100 WBC (Bld) 22.1 % Normal 20.0 - 40.0 % [facility] Workflow SS MCH (RBC) [Entitic mass] 27.7 pg Normal 27.0 - 33.0 pg AH Workflow SS MCHC 32.9 G/dL Normal 32.0 - 36.0 G/dL AH Workflow SS MCV (RBC) [Entitic vol] 84.1 fL Normal 80.0 - 99.0 fL AH Workflow SS Monocytes (Bld) [#/Vol] 0.7 103/mcL Normal 0.1 - 1.4 10^3/mcL AH Workflow SS Monocytes/100 WBC (Bld) 12.8 % Normal 2.0 - 13.0 % AH Workflow SS Neutrophils (Bld) [#/Vol] 3.2 103/mcL Normal 2.3 - 8.1 10^3/mcL AH Workflow SS Neutrophils/100 WBC (Bld) 58.4 % Normal 50.0 - 75.0 % AH Workflow SS Platelet mean volume (Bld) [Entitic vol] 9.7 fL Normal 6.6 - 10.5 fL AH Workflow SS Platelets (Bld) [#/Vol] 161 103/mcL Normal 150 - 450 10^3/mcL AH Workflow SS RBC (Bld) [#/Vol] 4.66 106/mcL Normal 4.10 - 5.3 0 10^6/mcL AH Workflow SS WBC (Bld) [#/Vol] 5.5 103/mcL Normal 4.5 - 10.8 10^3/mcL Workflow SS Albumin BCP dye [Mass/Vol] 2.5 G/dL Low 3.2 - 4.8 G/dL ADM SS Albumin/Globulin [Mass ratio] 0.7 {ratio} Low 0.9 - 1.6 ratio ADM SS ALP [Catalytic activity/Vol] 64 U/L Normal 38 - 126 U/L ADM SS ALT No additional P-5'-P [Catalytic activity/Vol] 12 U/L Normal 10 - 49 U/L ADM SS AST [Catalytic activity/Vol] 22 U/L Normal 8 - 34 U/L ADM SS Bili Indirect 0.3 mg/dL Normal 0.1 - 10.0 mg/dL Chemistry S Bilirubin [Mass/Vol] 0.50 mg/dL Normal 0.20 - 1.20 mg/dL ADM SS Comment on above: Interpretive Data: U se of this assay is not recommended for patients undergoing treatment with eltrombopag due to the potential for falsely elevated results. Bilirubin.conjugated [Mass/Vol] 0.2 mg/dL Normal 0.0 - 0.4 mg/dL ADM SS Comment on above: Interpretive Data: U se of this assay is not recommended for patients undergoing treatment with eltrombopag due to the potential for falsely elevated results. Calcium [Mass/Vol] 8.5 mg/dL Low 8.7 - 10. 4 mg/dL ADM SS Chloride [Moles/Vol] 109 mmol/L Normal 98 - 11 0 mEq/L ADM SS CO2 [Moles/Vol] 24 mmol/L Normal 22 - 32 mEq/L ADM SS Creatinine [Mass/Vol] 1.25 mg/dL High 0.50 - 1.20 mg/dL ADM SS Electrolyte Balance 7.0 mEq/L Normal 4.0 - 15 .0 mEq/L ADM SS GFR/1.73 sq M.predicted among blacks MDRD (S/P/Bld) [Vol rate/Area] 51 ml/min/1.73sqm Invalid Interpretation Code Chemistry S Comment on above: Interpretive Data: GFR Population mean for , Non- Americans Ages 20-29 = 116 mL/min/1.73 sq.m. Ages 30-39 = 107 mL/min/1.73 sq.m. Ages 40-49 = 99 mL/min/1.73 sq.m. Ages 50-59 = 93 mL/min/1.73 sq.m. Ages 60-69 = 85 mL/min/1.73 sq.m. Ages 70+ = 75 mL/min/1.73 sq.m. Chronic Kidney Disease: Less than 60 mL/min/1.73 square meters End Stage Renal Disease: Less than 15 mL/min/1.73 square meters GFR/1.73 sq M.predicted among non-blacks MDRD (S/P/Bld) [Vol rate/Area] 42 ml/min/1.73sqm Invalid Interpretation Code Chemistry S Comment on above: Interpretive Data: GFR Population mean for , Non- Americans Ages 20-29 = 116 mL/min/1.73 sq.m. Ages 30-39 = 107 mL/min/1.73 sq.m. Ages 40-49 = 99 mL/min/1.73 sq.m. Ages 50-59 = 93 mL/min/1.73 sq.m. Ages 60-69 = 85 mL/min/1.73 sq.m. Ages 70+ = 75 mL/min/1.73 sq.m. Chronic Kidney Disease: Less than 60 mL/min/1.73 square meters End Stage Renal Disease: Less than 15 mL/min/1.73 square meters Globulin 3.4 G/dL Normal 1.5 - 3.8 G/dL ADM SS Glucose [Mass/Vol] 207 mg/dL High 82 - 115 mg/dL ADM SS Magnesium [Mass/Vol] 1.8 mg/dL Normal 1.6 - 2 .4 mg/dL ADM SS Phosphate [Mass/Vol] 5.1 mg/dL Normal 2.4 - 5 .1 mg/dL ADM SS Comment on above: Interpretive Data: * *Note - New Reference Range in effect 19 Potassium [Moles/Vol] 4.0 mmol/L Normal 3.5 - 5.0 mEq/L ADM SS Protein [Mass/Vol] 5.9 G/dL Normal 5.7 - 8.2 G/dL ADM SS Comment on above: Interpretive Data: * *Note - New Reference Range in effect 19 Sodium [Moles/Vol] 140 mmol/L Normal 136 - 145 mEq/L ADM SS Urea nitrogen [Mass/Vol] 20.0 mg/dL Normal 8.0 - 22.0 mg/dL ADM SS Urea nitrogen/Creatinine [Mass ratio] 16.0 ratio Normal 10.0 - 22.0 ratio ADM SS LABORATORYOrdered By: Rivas Sharma on 04-18-2023 Natriuretic peptide.B prohormone N-Terminal [Mass/Vol] 2802 pg/mL High 0 - 900 pg/mL Auto Chem SS Comment on above: Interpretive Data: N T-proBNP results of less than 300 pg/mL effectively rules out acute congestive heart failure with 99% negative predictive value. MGon 04-18-2023 Magnesium [Mass/Vol] 1.8 mg/dL Normal 1.6-2.4 [facility] ([place]) Comment on above: Performed By: #### P HOS, CBC, PBNP, BMP, ADIFF, GFR, MG, HFP, ANEU ####[place] [address] PBNPon 04-18-2023 Natriuretic peptide B (Bld) [Mass/Vol] 2802 pg/mL High 0-900 [facility] ([place]) Comment on above: Result Comment: NT-p roBNP results of less than 300 pg/mL effectivelyrules out acute congestive heart failure with 99% negative predictive value. Performed By: #### P HOS, CBC, PBNP, BMP, ADIFF, GFR, MG, HFP, ANEU ####[place] [id number] PHOSon 04-18-2023 Phosphate [Mass/Vol] 5.1 mg/dL Normal 2.4-5.1 [facility] ([place]) Comment on above: Result Comment: No te - New Reference Range in effect 19 Performed By: #### P HOS, CBC, PBNP, BMP, ADIFF, GFR, MG, HFP, ANEU ####[address] [address] XR CHEST 1 VIEWon 04-18-2023 XR CHEST 1 VIEW Normal [facility] ([place]) .Auto Diffon 04-17-2023 Basophil, Absolute 0.1 10 3/mcL Normal 0.0-0.3 [facility] ([place]) Comment on above: Performed By: #### A SAMEER, HFP, CBC, ADIFF, PHOS, MG, GFR, BMP ####[address] [address] Basophils/100 WBC (Bld) 1.3 % Normal 0.0-2.5 [facility] ([place]) Comment on above: Performed By: #### A SAMEER, HFP, CBC, ADIFF, PHOS, MG, GFR, BMP ####[address] [address] Eosinophil, Absolute 0.4 10 3/mcL Normal 0.0-0.7 [facility] ([place]) Comment on above: Performed By: #### A SAMEER, HFP, CBC, ADIFF, PHOS, MG, GFR, BMP ####[address] [address] Eosinophils/100 WBC (Bld) 6.1 % High 0.0-6.0 [facility] ([place]) Comment on above: Performed By: #### A SAMEER, HFP, CBC, ADIFF, PHOS, MG, GFR, BMP ####[address] [address] Lymphocyte, Absolute 1.5 10 3/mcL Normal 0.9-4.3 [facility] ([place]) Comment on above: Performed By: #### A SAMEER, HFP, CBC, ADIFF, PHOS, MG, GFR, BMP ####[address] [address] Lymphocytes/100 WBC (Bld) 24.4 % Normal 20.0-40.0 [facility] ([place]) Comment on above: Performed By: #### A SAMEER, HFP, CBC, ADIFF, PHOS, MG, GFR, BMP ####[address] [address] Monocyte, Absolute 0.8 10 3/mcL Normal 0.1-1.4 [facility] ([place]) Comment on above: Performed By: #### A SAMEER, HFP, CBC, ADIFF, PHOS, MG, GFR, BMP ####[address] [address] Monocytes/100 WBC (Bld) 12.4 % Normal 2.0-13.0 [facility] ([place]) Comment on above: Performed By: #### A SAMEER, HFP, CBC, ADIFF, PHOS, MG, GFR, BMP ####[address] [address] Neutrophils/100 WBC (Bld) 55.8 % Normal 50.0-75.0 [facility] ([place]) Comment on above: Performed By: #### A SAMEER, HFP, CBC, ADIFF, PHOS, MG, GFR, BMP ####[address] [address] .GFRon 04-17-2023 GFR 56 ml/min/1.73sqm Normal [facility] ([place]) Comment on above: Result Comment: GFR Population mean for , Non- Americans Ages 20-29 = 116 mL/min/1.73 sq.m. Ages 30-39 = 107 mL/min/1.73 sq.m. Ages 40-49 = 99 mL/min/1.73 sq.m. Ages 50-59 = 93 mL/min/1.73 sq.m. Ages 60-69 = 85 mL/min/1.73 sq.m. Ages 70+ = 75 mL/min/1.73 sq.m.Chronic Kidney Disease: Less than 60 mL/min/1.73 square metersEnd Stage Renal Disease: Less than 15 mL/min/1.73 square meters Performed By: #### A SAMEER, HFP, CBC, ADIFF, PHOS, MG, GFR, BMP ####[address] [address] GFR Non- 46 ml/min/1.73sqm Normal [facility] ([place]) Comment on above: Result Comment: GFR Population mean for , Non- Americans Ages 20-29 = 116 mL/min/1.73 sq.m. Ages 30-39 = 107 mL/min/1.73 sq.m. Ages 40-49 = 99 mL/min/1.73 sq.m. Ages 50-59 = 93 mL/min/1.73 sq.m. Ages 60-69 = 85 mL/min/1.73 sq.m. Ages 70+ = 75 mL/min/1.73 sq.m.Chronic Kidney Disease: Less than 60 mL/min/1.73 square metersEnd Stage Renal Disease: Less than 15 mL/min/1.73 square meters Performed By: #### A SAMEER, HFP, CBC, ADIFF, PHOS, MG, GFR, BMP ####[place] [address] .NEUABSon 04-17-2023 Neutrophil, Absolute 3.4 10 3/mcL Normal 2.3-8.1 [facility] ([place]) Comment on above: Performed By: #### A SAMEER, HFP, CBC, ADIFF, PHOS, MG, GFR, BMP ####[place] [address] APTTon 04-17-2023 aPTT Coag (Bld) [Time] 49.4 s High 25.0-35.0 [facility] ([place]) Comment on above: Result Comment: For Heparin anticoagulation therapy, the recommendedtherapeutic range is: 54-77 seconds (APTT Correlationwith Anti-Xa therapeutic range of 0.3-0.7 units/ml).PLEASE REFERENCE THE PHARMACY PROTOCOL FOR DOSING. Heparin dose (APTT) Heparin IV Normal [facility] ([place] aPTT Coag (Bld) [Time] 68.2 s High 25.0-35.0 [facility] ([place]) Comment on above: Result Comment: For Heparin anticoagulation therapy, the recommendedtherapeutic range is: 54-77 seconds (APTT Correlationwith Anti-Xa therapeutic range of 0.3-0.7 units/ml).PLEASE REFERENCE THE PHARMACY PROTOCOL FOR DOSING. Heparin dose (APTT) Heparin IV Normal [facility] ([place]) BMPon 04-17-2023 Electrolyte Balance 5.0 mEq/L Normal 4.0-15.0 [facility] ([place] Comment on above: Performed By: #### A SAMEER, HFP, CBC, ADIFF, PHOS, MG, GFR, BMP ####[place] [address] BUN/Creatinine Ratio 14.8 ratio Normal 10.0-22.0 [facility] ([place]) Comment on above: Performed By: #### A SAMEER, HFP, CBC, ADIFF, PHOS, MG, GFR, BMP ####[place] [address] Calcium [Mass/Vol] 9.2 mg/dL Normal 8.7-10.4 [facility] ([place]) Comment on above: Performed By: #### A SAMEER, HFP, CBC, ADIFF, PHOS, MG, GFR, BMP ####[place] [id number] CO2 [Moles/Vol] 28 mmol/L Normal 22-32 [facility] ([place] Comment on above: Performed By: #### A SAMEER, HFP, CBC, ADIFF, PHOS, MG, GFR, BMP ####[place] [address] Creatinine [Mass/Vol] 1.15 mg/dL Normal 0.50-1.20 [facility] ([place]) Comment on above: Performed By: #### A SAMEER, HFP, CBC, ADIFF, PHOS, MG, GFR, BMP ####[place] [address] Glucose [Mass/Vol] 116 mg/dL High 82-115 [facility] ([place] Comment on above: Performed By: #### A SAMEER, HFP, CBC, ADIFF, PHOS, MG, GFR, BMP ####[place] [address] Urea nitrogen [Mass/Vol] 17.0 mg/dL Normal 8.0-22.0 [facility] ([place] Comment on above: Performed By: #### A SAMEER, HFP, CBC, ADIFF, PHOS, MG, GFR, BMP ####[place] [id number] Chloride [Moles/Vol] 108 mmol/L Normal 98-110 [facility] ([place]) Comment on above: Performed By: #### A SAMEER, HFP, CBC, ADIFF, PHOS, MG, GFR, BMP ####[place] [address] Potassium [Moles/Vol] 3.5 mmol/L Normal 3.5-5.0 [facility] ([place] Comment on above: Performed By: #### A SAMEER, HFP, CBC, ADIFF, PHOS, MG, GFR, BMP ####[place] [address] Sodium [Moles/Vol] 141 mmol/L Normal 136-145 [facility] ([place] Comment on above: Performed By: #### A SAMEER, HFP, CBC, ADIFF, PHOS, MG, GFR, BMP ####[place] [address] CBCon 04-17-2023 Erythrocyte distribution width (RBC) [Ratio] 16.7 % High 11.5-15.5 [facility] ([place]) Comment on above: Performed By: #### A SAMEER, HFP, CBC, ADIFF, PHOS, MG, GFR, BMP ####[place] [address] Hematocrit (Bld) [Volume fraction] 42.8 % Normal 34.0-46.0 [facility] ([place] Comment on above: Performed By: #### A SAMEER, HFP, CBC, ADIFF, PHOS, MG, GFR, BMP ####[place] [address] Hgb 14.0 G/dL Normal 12.0-16.0 [facility] ([place] Comment on above: Performed By: #### A SAMEER, HFP, CBC, ADIFF, PHOS, MG, GFR, BMP ####[place] [address] MCH (RBC) [Entitic mass] 27.8 pg Normal 27.0-33.0 [facility] ([place]) Comment on above: Performed By: #### A SAMEER, HFP, CBC, ADIFF, PHOS, MG, GFR, BMP ####[place] [address] MCHC 32.7 G/dL Normal 32.0-36.0 [facility] ([place] Comment on above: Performed By: #### A SAMEER, HFP, CBC, ADIFF, PHOS, MG, GFR, BMP ####[place] [address] MCV (RBC) [Entitic vol] 84.9 fL Normal 80.0-99.0 [facility] ([place] Comment on above: Performed By: #### A SAMEER, HFP, CBC, ADIFF, PHOS, MG, GFR, BMP ####[place] [address] Platelet 147 10 3/mcL Low 150-450 [facility] ([place] Comment on above: Performed By: #### A SAMEER, HFP, CBC, ADIFF, PHOS, MG, GFR, BMP ####[place] [address] Platelet mean volume (Bld) [Entitic vol] 9.3 fL Normal 6.6-10.5 [facility] ([place]) Comment on above: Performed By: #### A SAMEER, HFP, CBC, ADIFF, PHOS, MG, GFR, BMP ####[place] [address] RBC 5.05 10 6/mcL Normal 4.10-5.30 [facility] ([place] Comment on above: Performed By: #### A SAMEER, HFP, CBC, ADIFF, PHOS, MG, GFR, BMP ####[place] [address] WBC 6.1 10 3/mcL Normal 4.5-10.8 [facility] ([place] Comment on above: Performed By: #### A SAMEER, HFP, CBC, ADIFF, PHOS, MG, GFR, BMP ####[place] [address] HFPon 04-17-2023 Bili Indirect 0.5 mg/dL Normal 0.1-10.0 [facility] ([place] Comment on above: Performed By: #### A SAMEER, HFP, CBC, ADIFF, PHOS, MG, GFR, BMP ####[place] [address] Albumin Level 2.9 G/dL Low 3.2-4.8 [facility] ([place] Comment on above: Performed By: #### A SAMEER, HFP, CBC, ADIFF, PHOS, MG, GFR, BMP ####[place] [address] Albumin/Globulin [Mass ratio] 0.8 {ratio} Low 0.9-1.6 [facility] ([place] Comment on above: Performed By: #### A SAMEER, HFP, CBC, ADIFF, PHOS, MG, GFR, BMP ####[place] [id number] ALP [Catalytic activity/Vol] 72 U/L Normal 38-126 [facility] ([place] Comment on above: Performed By: #### A SAMEER, HFP, CBC, ADIFF, PHOS, MG, GFR, BMP ####[place] [id number] ALT [Catalytic activity/Vol] 13 U/L Normal 10-49 [facility] ([place] Comment on above: Performed By: #### A SAMEER, HFP, CBC, ADIFF, PHOS, MG, GFR, BMP ####[place] [address] AST [Catalytic activity/Vol] 22 U/L Normal 8-34 [facility] ([place] Comment on above: Performed By: #### A SAMEER, HFP, CBC, ADIFF, PHOS, MG, GFR, BMP ####[place] [address] Bili Direct 0.4 mg/dL Normal 0.0-0.4 [facility] ([place]) Comment on above: Result Comment: Use of this assay is not recommended for patients undergoing treatment with eltrombopag due to the potential for falsely elevated results. Performed By: #### A SAMEER, HFP, CBC, ADIFF, PHOS, MG, GFR, BMP ####[place] [address] Bili Total 0.90 mg/dL Normal 0.20-1.20 [facility] ([place]) Comment on above: Result Comment: Use of this assay is not recommended for patients undergoing treatment with eltrombopag due to the potential for falsely elevated results. Performed By: #### A SAMEER, HFP, CBC, ADIFF, PHOS, MG, GFR, BMP ####[place] [id number] [address] [place] [address] Globulin 3.8 G/dL Normal 1.5-3.8 [facility] ([place]) Comment on above: Performed By: #### A SAMEER, HFP, CBC, ADIFF, PHOS, MG, GFR, BMP ####[place] [id number] [address] [place] [id number] Total Protein 6.7 G/dL Normal 5.7-8.2 [facility] ([place]) Comment on above: Result Comment: No te - New Reference Range in effect 19 Performed By: #### A SAMEER, HFP, CBC, ADIFF, PHOS, MG, GFR, BMP ####[place] [id number] [address] [place] [id number] LABORATORYOrdered By: Bernard Mora on 04-17-2023 aPTT Coag (Bld) [Time] 49.4 s High 25.0 - 35.0 seconds AH [facility] SS Comment on above: Interpretive Data: F or Heparin anticoagulation therapy, the recommended therapeutic range is: 54-77 seconds (APTT Correlation with Anti-Xa therapeutic range of 0.3-0.7 units/ml). PLEASE REFERENCE THE PHARMACY PROTOCOL FOR DOSING. Heparin dose (APTT) Heparin IV (04/17/23 3:11 PM) Normal AH Coagulation S LABORATORYOrdered By: SYSTEM SYSTEM on 04-17-2023 Albumin BCP dye [Mass/Vol] 2.9 G/dL Low 3.2 - 4.8 G/dL AH ADM SS Albumin/Globulin [Mass ratio] 0.8 {ratio} Low 0.9 - 1.6 ratio AH ADM SS ALP [Catalytic activity/Vol] 72 U/L Normal 38 - 126 U/L AH ADM SS ALT No additional P-5'-P [Catalytic activity/Vol] 13 U/L Normal 10 - 49 U/L AH ADM SS AST [Catalytic activity/Vol] 22 U/L Normal 8 - 34 U/L ADM SS Basophils (Bld) [#/Vol] 0.1 103/mcL Normal 0.0 - 0.3 10^3/mcL Workflow SS Basophils/100 WBC (Bld) 1.3 % Normal 0.0 - 2.5 % Workflow SS Bili Indirect 0.5 mg/dL Normal 0.1 - 10.0 mg/dL Chemistry S Bilirubin [Mass/Vol] 0.90 mg/dL Normal 0.20 - 1.20 mg/dL ADM SS Comment on above: Interpretive Data: U se of this assay is not recommended for patients undergoing treatment with eltrombopag due to the potential for falsely elevated results. Bilirubin.conjugated [Mass/Vol] 0.4 mg/dL Normal 0.0 - 0.4 mg/dL ADM SS Comment on above: Interpretive Data: U se of this assay is not recommended for patients undergoing treatment with eltrombopag due to the potential for falsely elevated results. Calcium [Mass/Vol] 9.2 mg/dL Normal 8.7 - 10. 4 mg/dL ADM SS Chloride [Moles/Vol] 108 mmol/L Normal 98 - 11 0 mEq/L ADM SS CO2 [Moles/Vol] 28 mmol/L Normal 22 - 32 mEq/L ADM SS Creatinine [Mass/Vol] 1.15 mg/dL Normal 0.50 - 1.20 mg/dL ADM SS Eosinophils (Bld) [#/Vol] 0.4 103/mcL Normal 0.0 - 0.7 10^3/mcL Workflow SS Eosinophils/100 WBC (Bld) 6.1 % High 0.0 - 6.0 % Workflow SS Erythrocyte distribution width (RBC) [Ratio] 16.7 % High 11.5 - 15.5 % Workflow SS GFR/1.73 sq M.predicted among blacks MDRD (S/P/Bld) [Vol rate/Area] 56 ml/min/1.73sqm Invalid Interpretation Code Chemistry S Comment on above: Interpretive Data: GFR Population mean for , Non- Americans Ages 20-29 = 116 mL/min/1.73 sq.m. Ages 30-39 = 107 mL/min/1.73 sq.m. Ages 40-49 = 99 mL/min/1.73 sq.m. Ages 50-59 = 93 mL/min/1.73 sq.m. Ages 60-69 = 85 mL/min/1.73 sq.m. Ages 70+ = 75 mL/min/1.73 sq.m. Chronic Kidney Disease: Less than 60 mL/min/1.73 square meters End Stage Renal Disease: Less than 15 mL/min/1.73 square meters GFR/1.73 sq M.predicted among non-blacks MDRD (S/P/Bld) [Vol rate/Area] 46 ml/min/1.73sqm Invalid Interpretation Code Chemistry S Comment on above: Interpretive Data: GFR Population mean for , Non- Americans Ages 20-29 = 116 mL/min/1.73 sq.m. Ages 30-39 = 107 mL/min/1.73 sq.m. Ages 40-49 = 99 mL/min/1.73 sq.m. Ages 50-59 = 93 mL/min/1.73 sq.m. Ages 60-69 = 85 mL/min/1.73 sq.m. Ages 70+ = 75 mL/min/1.73 sq.m. Chronic Kidney Disease: Less than 60 mL/min/1.73 square meters End Stage Renal Disease: Less than 15 mL/min/1.73 square meters Globulin 3.8 G/dL Normal 1.5 - 3.8 G/dL ADM SS Glucose [Mass/Vol] 116 mg/dL High 82 - 115 mg/dL ADM SS Hematocrit (Bld) [Volume fraction] 42.8 % Normal 34.0 - 46.0 % Workflow SS Hemoglobin (Bld) [Mass/Vol] 14.0 G/dL Normal 12.0 - 16.0 G/dL AH Workflow SS Lymphocytes (Bld) [#/Vol] 1.5 103/mcL Normal 0.9 - 4.3 10^3/mcL Workflow SS Lymphocytes/100 WBC (Bld) 24.4 % Normal 20.0 - 40.0 % Workflow SS Magnesium [Mass/Vol] 1.9 mg/dL Normal 1.6 - 2 .4 mg/dL ADM SS MCH (RBC) [Entitic mass] 27.8 pg Normal 27.0 - 33.0 pg Workflow SS MCHC 32.7 G/dL Normal 32.0 - 36.0 G/dL AH Workflow SS MCV (RBC) [Entitic vol] 84.9 fL Normal 80.0 - 99.0 fL AH Workflow SS Monocytes (Bld) [#/Vol] 0.8 103/mcL Normal 0.1 - 1.4 10^3/mcL AH Workflow SS Monocytes/100 WBC (Bld) 12.4 % Normal 2.0 - 13.0 % AH Workflow SS Neutrophils (Bld) [#/Vol] 3.4 103/mcL Normal 2.3 - 8.1 10^3/mcL AH Workflow SS Neutrophils/100 WBC (Bld) 55.8 % Normal 50.0 - 75.0 % AH Workflow SS Phosphate [Mass/Vol] 3.7 mg/dL Normal 2.4 - 5 .1 mg/dL ADM SS Comment on above: Interpretive Data: * *Note - New Reference Range in effect 19 Platelet mean volume (Bld) [Entitic vol] 9.3 fL Normal 6.6 - 10.5 fL Workflow SS Platelets (Bld) [#/Vol] 147 103/mcL Low 150 - 450 10^3/mcL AH Workflow SS Potassium [Moles/Vol] 3.5 mmol/L Normal 3.5 - 5.0 mEq/L ADM SS Protein [Mass/Vol] 6.7 G/dL Normal 5.7 - 8.2 G/dL ADM SS Comment on above: Interpretive Data: * *Note - New Reference Range in effect 19 RBC (Bld) [#/Vol] 5.05 106/mcL Normal 4.10 - 5.3 0 10^6/mcL Workflow SS Sodium [Moles/Vol] 141 mmol/L Normal 136 - 145 mEq/L ADM SS Urea nitrogen [Mass/Vol] 17.0 mg/dL Normal 8.0 - 22.0 mg/dL ADM SS Urea nitrogen/Creatinine [Mass ratio] 14.8 ratio Normal 10.0 - 22.0 ratio ADM SS WBC (Bld) [#/Vol] 6.1 103/mcL Normal 4.5 - 10.8 10^3/mcL Workflow SS LABORATORYOrdered By: Sapna Hernandez on 04-17-2023 aPTT Coag (Bld) [Time] 68.2 s High 25.0 - 35.0 seconds [facility] SS Comment on above: Interpretive Data: F or Heparin anticoagulation therapy, the recommended therapeutic range is: 54-77 seconds (APTT Correlation with Anti-Xa therapeutic range of 0.3-0.7 units/ml). PLEASE REFERENCE THE PHARMACY PROTOCOL FOR DOSING. Heparin dose (APTT) Heparin IV (04/17/23 4:42 AM) Normal Coagulation S LABORATORYOrdered By: Can [place] on 04-17-2023 Electrolyte Balance 5.0 mEq/L Normal 4.0 - 15 .0 mEq/L AH Chemistry S MGon 04-17-2023 Magnesium [Mass/Vol] 1.9 mg/dL Normal 1.6-2.4 [facility] ([place]) Comment on above: Performed By: #### A SAMEER, HFP, CBC, ADIFF, PHOS, MG, GFR, BMP ####[place] [address] PHOSon 04-17-2023 Phosphate [Mass/Vol] 3.7 mg/dL Normal 2.4-5.1 [facility] ([place]) Comment on above: Result Comment: No te - New Reference Range in effect 19 Performed By: #### A SAMEER, HFP, CBC, ADIFF, PHOS, MG, GFR, BMP ####[place] [address] .Auto Diffon 04-16-2023 Basophil, Absolute 0.1 10 3/mcL Normal 0.0-0.3 [facility] ([place]) Comment on above: Performed By: #### H FP, BMP, CBC, MG, PHOS, ADIFF, GFR, ANEU ####[address] [address] Basophils/100 WBC (Bld) 1.2 % Normal 0.0-2.5 [facility] ([place]) Comment on above: Performed By: #### H FP, BMP, CBC, MG, PHOS, ADIFF, GFR, ANEU ####[address] [address] Eosinophil, Absolute 0.2 10 3/mcL Normal 0.0-0.7 [facility] ([place]) Comment on above: Performed By: #### H FP, BMP, CBC, MG, PHOS, ADIFF, GFR, ANEU ####[address] [address] Eosinophils/100 WBC (Bld) 4.9 % Normal 0.0-6.0 [facility] ([place]) Comment on above: Performed By: #### H FP, BMP, CBC, MG, PHOS, ADIFF, GFR, ANEU ####[address] [address] Lymphocyte, Absolute 1.0 10 3/mcL Normal 0.9-4.3 [facility] ([place]) Comment on above: Performed By: #### H FP, BMP, CBC, MG, PHOS, ADIFF, GFR, ANEU ####[address] [address] Lymphocytes/100 WBC (Bld) 20.9 % Normal 20.0-40.0 [facility] ([place]) Comment on above: Performed By: #### H FP, BMP, CBC, MG, PHOS, ADIFF, GFR, ANEU ####[address] [address] Monocyte, Absolute 0.5 10 3/mcL Normal 0.1-1.4 [facility] ([place]) Comment on above: Performed By: #### H FP, BMP, CBC, MG, PHOS, ADIFF, GFR, ANEU ####[address] [address] Monocytes/100 WBC (Bld) 11.3 % Normal 2.0-13.0 [facility] ([place]) Comment on above: Performed By: #### H FP, BMP, CBC, MG, PHOS, ADIFF, GFR, ANEU ####[address] [address] Neutrophils/100 WBC (Bld) 61.7 % Normal 50.0-75.0 [facility] ([place]) Comment on above: Performed By: #### H FP, BMP, CBC, MG, PHOS, ADIFF, GFR, ANEU ####[address] [address] .GFRon 04-16-2023 GFR 54 ml/min/1.73sqm Normal [facility] ([place]) Comment on above: Result Comment: GFR Population mean for , Non- Americans Ages 20-29 = 116 mL/min/1.73 sq.m. Ages 30-39 = 107 mL/min/1.73 sq.m. Ages 40-49 = 99 mL/min/1.73 sq.m. Ages 50-59 = 93 mL/min/1.73 sq.m. Ages 60-69 = 85 mL/min/1.73 sq.m. Ages 70+ = 75 mL/min/1.73 sq.m.Chronic Kidney Disease: Less than 60 mL/min/1.73 square metersEnd Stage Renal Disease: Less than 15 mL/min/1.73 square meters Performed By: #### H FP, BMP, CBC, MG, PHOS, ADIFF, GFR, ANEU ####[place] [address] GFR Non- 44 ml/min/1.73sqm Normal [facility] ([place]) Comment on above: Result Comment: GFR Population mean for , Non- Americans Ages 20-29 = 116 mL/min/1.73 sq.m. Ages 30-39 = 107 mL/min/1.73 sq.m. Ages 40-49 = 99 mL/min/1.73 sq.m. Ages 50-59 = 93 mL/min/1.73 sq.m. Ages 60-69 = 85 mL/min/1.73 sq.m. Ages 70+ = 75 mL/min/1.73 sq.m.Chronic Kidney Disease: Less than 60 mL/min/1.73 square metersEnd Stage Renal Disease: Less than 15 mL/min/1.73 square meters Performed By: #### H FP, BMP, CBC, MG, PHOS, ADIFF, GFR, ANEU ####[address] [address] .NEUABSon 04-16-2023 Neutrophil, Absolute 3.0 10 3/mcL Normal 2.3-8.1 [facility] ([place]) Comment on above: Performed By: #### H FP, BMP, CBC, MG, PHOS, ADIFF, GFR, ANEU ####[place] [address] APTTon 04-16-2023 aPTT Coag (Bld) [Time] 70.1 s High 25.0-35.0 [facility] ([place]) Comment on above: Result Comment: For Heparin anticoagulation therapy, the recommendedtherapeutic range is: 54-77 seconds (APTT Correlationwith Anti-Xa therapeutic range of 0.3-0.7 units/ml).PLEASE REFERENCE THE PHARMACY PROTOCOL FOR DOSING. Heparin dose (APTT) Heparin IV Normal [facility] ([place]) aPTT Coag (Bld) [Time] 60.9 s High 25.0-35.0 [facility] ([place]) Comment on above: Result Comment: For Heparin anticoagulation therapy, the recommendedtherapeutic range is: 54-77 seconds (APTT Correlationwith Anti-Xa therapeutic range of 0.3-0.7 units/ml).PLEASE REFERENCE THE PHARMACY PROTOCOL FOR DOSING. Performed By: #### P RO ####[place] [address] Heparin dose (APTT) Unknown Normal [facility] ([place]) Comment on above: Performed By: #### P RO ####[place] [address] aPTT Coag (Bld) [Time] 45.6 s High 25.0-35.0 [facility] ([place]) Comment on above: Result Comment: For Heparin anticoagulation therapy, the recommendedtherapeutic range is: 54-77 seconds (APTT Correlationwith Anti-Xa therapeutic range of 0.3-0.7 units/ml).PLEASE REFERENCE THE PHARMACY PROTOCOL FOR DOSING. Performed By: #### H FP, BMP, CBC, MG, PHOS, ADIFF, GFR, ANEU ####[place] [address] Heparin dose (APTT) Heparin IV [facility] ([place]) Comment on above: Performed By: #### H FP, BMP, CBC, MG, PHOS, ADIFF, GFR, ANEU ####[address] [address] BMPon 04-16-2023 BUN/Creatinine Ratio 16.0 ratio Normal 10.0-22.0 [facility] ([place]) Comment on above: Performed By: #### H FP, BMP, CBC, MG, PHOS, ADIFF, GFR, ANEU ####[place] [address] Calcium [Mass/Vol] 9.1 mg/dL Normal 8.7-10.4 [facility] ([place]) Comment on above: Performed By: #### H FP, BMP, CBC, MG, PHOS, ADIFF, GFR, ANEU ####[place] [address] Chloride [Moles/Vol] 108 mmol/L Normal 98-110 [facility] ([place]) Comment on above: Performed By: #### H FP, BMP, CBC, MG, PHOS, ADIFF, GFR, ANEU ####[place] [address] CO2 [Moles/Vol] 26 mmol/L Normal 22-32 [facility] ([place]) Comment on above: Performed By: #### H FP, BMP, CBC, MG, PHOS, ADIFF, GFR, ANEU ####[place] [address] Creatinine [Mass/Vol] 1.19 mg/dL Normal 0.50-1.20 [facility] ([place]) Comment on above: Performed By: #### H FP, BMP, CBC, MG, PHOS, ADIFF, GFR, ANEU ####[place] [address] Electrolyte Balance 8.0 mEq/L Normal 4.0-15.0 [facility] ([place]) Comment on above: Performed By: #### H FP, BMP, CBC, MG, PHOS, ADIFF, GFR, ANEU ####[place] [address] Glucose [Mass/Vol] 151 mg/dL High 82-115 [facility] ([place]) Comment on above: Performed By: #### H FP, BMP, CBC, MG, PHOS, ADIFF, GFR, ANEU ####[address] [address] Potassium [Moles/Vol] 4.0 mmol/L Normal 3.5-5.0 [facility] ([place]) Comment on above: Performed By: #### H FP, BMP, CBC, MG, PHOS, ADIFF, GFR, ANEU ####[place] [address] Sodium [Moles/Vol] 142 mmol/L Normal 136-145 [facility] ([place]) Comment on above: Performed By: #### H FP, BMP, CBC, MG, PHOS, ADIFF, GFR, ANEU ####[place] [address] Urea nitrogen [Mass/Vol] 19.0 mg/dL Normal 8.0-22.0 [facility] ([place]) Comment on above: Performed By: #### H FP, BMP, CBC, MG, PHOS, ADIFF, GFR, ANEU ####[place] [address] CBCon 04-16-2023 Erythrocyte distribution width (RBC) [Ratio] 16.4 % High 11.5-15.5 [facility] ([place]) Comment on above: Performed By: #### H FP, BMP, CBC, MG, PHOS, ADIFF, GFR, ANEU ####[place] [address] Hematocrit (Bld) [Volume fraction] 37.6 % Normal 34.0-46.0 [facility] ([place]) Comment on above: Performed By: #### H FP, BMP, CBC, MG, PHOS, ADIFF, GFR, ANEU ####[place] [address] Hgb 12.2 G/dL Normal 12.0-16.0 [facility] ([place] Comment on above: Performed By: #### H FP, BMP, CBC, MG, PHOS, ADIFF, GFR, ANEU ####[place] [address] MCH (RBC) [Entitic mass] 27.6 pg Normal 27.0-33.0 [facility] ([place] Comment on above: Performed By: #### H FP, BMP, CBC, MG, PHOS, ADIFF, GFR, ANEU ####[place] [address] MCHC 32.3 G/dL Normal 32.0-36.0 [facility] ([place] Comment on above: Performed By: #### H FP, BMP, CBC, MG, PHOS, ADIFF, GFR, ANEU ####[place] [address] MCV (RBC) [Entitic vol] 85.4 fL Normal 80.0-99.0 [facility] ([place] Comment on above: Performed By: #### H FP, BMP, CBC, MG, PHOS, ADIFF, GFR, ANEU ####[place] [address] Platelet 144 10 3/mcL Low 150-450 [facility] ([place] Comment on above: Performed By: #### H FP, BMP, CBC, MG, PHOS, ADIFF, GFR, ANEU ####[place] [address] Platelet mean volume (Bld) [Entitic vol] 9.3 fL Normal 6.6-10.5 [facility] ([place]) Comment on above: Performed By: #### H FP, BMP, CBC, MG, PHOS, ADIFF, GFR, ANEU ####[place] [address] RBC 4.40 10 6/mcL Normal 4.10-5.30 [facility] ([place] Comment on above: Performed By: #### H FP, BMP, CBC, MG, PHOS, ADIFF, GFR, ANEU ####[place] [address] WBC 4.9 10 3/mcL Normal 4.5-10.8 [facility] ([place] Comment on above: Performed By: #### H FP, BMP, CBC, MG, PHOS, ADIFF, GFR, ANEU ####[place] [address] HFPon 04-16-2023 Bili Indirect 0.5 mg/dL Normal 0.1-10.0 [facility] ([place] Comment on above: Performed By: #### H FP, BMP, CBC, MG, PHOS, ADIFF, GFR, ANEU ####[place] [address] Albumin Level 2.5 G/dL Low 3.2-4.8 [facility] ([place] Comment on above: Performed By: #### H FP, BMP, CBC, MG, PHOS, ADIFF, GFR, ANEU ####[place] [address] Albumin/Globulin [Mass ratio] 0.9 {ratio} Normal 0.9-1.6 [facility] ([place] Comment on above: Performed By: #### H FP, BMP, CBC, MG, PHOS, ADIFF, GFR, ANEU ####[place] [address] ALP [Catalytic activity/Vol] 68 U/L Normal 38-126 [facility] ([place] Comment on above: Performed By: #### H FP, BMP, CBC, MG, PHOS, ADIFF, GFR, ANEU ####[place] [address] ALT [Catalytic activity/Vol] 13 U/L Normal 10-49 [facility] ([place] Comment on above: Performed By: #### H FP, BMP, CBC, MG, PHOS, ADIFF, GFR, ANEU ####[place] [address] AST [Catalytic activity/Vol] 20 U/L Normal 8-34 [facility] ([place] Comment on above: Performed By: #### H FP, BMP, CBC, MG, PHOS, ADIFF, GFR, ANEU ####[place] [address] Bili Direct 0.3 mg/dL Normal 0.0-0.4 [facility] ([place]) Comment on above: Result Comment: Use of this assay is not recommended for patients undergoing treatment with eltrombopag due to the potential for falsely elevated results. Performed By: #### H FP, BMP, CBC, MG, PHOS, ADIFF, GFR, ANEU ####[place] [address] Bili Total 0.80 mg/dL Normal 0.20-1.20 [facility] ([place]) Comment on above: Result Comment: Use of this assay is not recommended for patients undergoing treatment with eltrombopag due to the potential for falsely elevated results. Performed By: #### H FP, BMP, CBC, MG, PHOS, ADIFF, GFR, ANEU ####[place] [address] Globulin 2.9 G/dL Normal 1.5-3.8 [facility] ([place]) Comment on above: Performed By: #### H FP, BMP, CBC, MG, PHOS, ADIFF, GFR, ANEU ####[place] [address] Total Protein 5.4 G/dL Low 5.7-8.2 [facility] ([place]) Comment on above: Result Comment: No te - New Reference Range in effect 19 Performed By: #### H FP, BMP, CBC, MG, PHOS, ADIFF, GFR, ANEU ####[place] [address] LABORATORYOrdered By: Bernard Mora on 04-16-2023 aPTT Coag (Bld) [Time] 70.1 s High 25.0 - 35.0 seconds [facility] Comment on above: Interpretive Data: F or Heparin anticoagulation therapy, the recommended therapeutic range is: 54-77 seconds (APTT Correlation with Anti-Xa therapeutic range of 0.3-0.7 units/ml). PLEASE REFERENCE THE PHARMACY PROTOCOL FOR DOSING. Heparin dose (APTT) Heparin IV (04/16/23 6:28 PM) Normal AH Coagulation S LABORATORYOrdered By: Shai Chua on 04-16-2023 PT Coag (PPP) [Time] 11.9 s Normal 9.0 - 1 4.2 seconds AH [facility] Comment on above: Interpretive Data: E ffective 10/03/07, Protime results may be affected by some antibiotics (i.e. Ciprofloxacin, Azithromycin, Bactrim) which may potentiate the action of oral anticoagulants, with further increases in Protime/INR. PT International Ratio 1.0 ratio Invalid Interpretation Code [facility] Comment on above: Interpretive Data: Salvador ochoa [employer] (CHEST, 1991, [id number]) recommended therapeutic range for oral anticoagulant therapy is: LOW RISK: Prophylaxis of venous thrombosis INR: 2.0-3.0 Treatment of pulmonary embolism 2.0-3.0 Prevention of systemic embolism 2.0-3.0 HIGH RISK: Mechanical prosthetic valves 2.5-3.5 LABORATORYOrdered By: SYSTEM SYSTEM on 04-16-2023 Albumin BCP dye [Mass/Vol] 2.5 G/dL Low 3.2 - 4.8 G/dL ADM SS Albumin/Globulin [Mass ratio] 0.9 {ratio} Normal 0.9 - 1.6 ratio ADM SS ALP [Catalytic activity/Vol] 68 U/L Normal 38 - 126 U/L ADM SS ALT No additional P-5'-P [Catalytic activity/Vol] 13 U/L Normal 10 - 49 U/L ADM SS AST [Catalytic activity/Vol] 20 U/L Normal 8 - 34 U/L ADM SS Basophils (Bld) [#/Vol] 0.1 103/mcL Normal 0.0 - 0.3 10^3/mcL Workflow SS Basophils/100 WBC (Bld) 1.2 % Normal 0.0 - 2.5 % Workflow SS Bili Indirect 0.5 mg/dL Normal 0.1 - 10.0 mg/dL Chemistry S Bilirubin [Mass/Vol] 0.80 mg/dL Normal 0.20 - 1.20 mg/dL ADM Comment on above: Interpretive Data: U se of this assay is not recommended for patients undergoing treatment with eltrombopag due to the potential for falsely elevated results. Bilirubin.conjugated [Mass/Vol] 0.3 mg/dL Normal 0.0 - 0.4 mg/dL ADM Comment on above: Interpretive Data: U se of this assay is not recommended for patients undergoing treatment with eltrombopag due to the potential for falsely elevated results. Calcium [Mass/Vol] 9.1 mg/dL Normal 8.7 - 10. 4 mg/dL ADM SS Chloride [Moles/Vol] 108 mmol/L Normal 98 - 11 0 mEq/L ADM SS CO2 [Moles/Vol] 26 mmol/L Normal 22 - 32 mEq/L ADM SS Creatinine [Mass/Vol] 1.19 mg/dL Normal 0.50 - 1.20 mg/dL ADM SS Electrolyte Balance 8.0 mEq/L Normal 4.0 - 15 .0 mEq/L ADM SS Eosinophils (Bld) [#/Vol] 0.2 103/mcL Normal 0.0 - 0.7 10^3/mcL Workflow SS Eosinophils/100 WBC (Bld) 4.9 % Normal 0.0 - 6.0 % Workflow SS Erythrocyte distribution width (RBC) [Ratio] 16.4 % High 11.5 - 15.5 % Workflow SS GFR/1.73 sq M.predicted among blacks MDRD (S/P/Bld) [Vol rate/Area] 54 ml/min/1.73sqm Invalid Interpretation Code [facility] S Comment on above: Interpretive Data: GFR Population mean for , Non- Americans Ages 20-29 = 116 mL/min/1.73 sq.m. Ages 30-39 = 107 mL/min/1.73 sq.m. Ages 40-49 = 99 mL/min/1.73 sq.m. Ages 50-59 = 93 mL/min/1.73 sq.m. Ages 60-69 = 85 mL/min/1.73 sq.m. Ages 70+ = 75 mL/min/1.73 sq.m. Chronic Kidney Disease: Less than 60 mL/min/1.73 square meters End Stage Renal Disease: Less than 15 mL/min/1.73 square meters GFR/1.73 sq M.predicted among non-blacks MDRD (S/P/Bld) [Vol rate/Area] 44 ml/min/1.73sqm Invalid Interpretation Code [facility] S Comment on above: Interpretive Data: GFR Population mean for , Non- Americans Ages 20-29 = 116 mL/min/1.73 sq.m. Ages 30-39 = 107 mL/min/1.73 sq.m. Ages 40-49 = 99 mL/min/1.73 sq.m. Ages 50-59 = 93 mL/min/1.73 sq.m. Ages 60-69 = 85 mL/min/1.73 sq.m. Ages 70+ = 75 mL/min/1.73 sq.m. Chronic Kidney Disease: Less than 60 mL/min/1.73 square meters End Stage Renal Disease: Less than 15 mL/min/1.73 square meters Globulin 2.9 G/dL Normal 1.5 - 3.8 G/dL ADM SS Glucose [Mass/Vol] 151 mg/dL High 82 - 115 mg/dL ADM SS Hematocrit (Bld) [Volume fraction] 37.6 % Normal 34.0 - 46.0 % AH Workflow SS Hemoglobin (Bld) [Mass/Vol] 12.2 G/dL Normal 12.0 - 16.0 G/dL AH Workflow SS Lymphocytes (Bld) [#/Vol] 1.0 103/mcL Normal 0.9 - 4.3 10^3/mcL Workflow SS Lymphocytes/100 WBC (Bld) 20.9 % Normal 20.0 - 40.0 % AH Workflow SS Magnesium [Mass/Vol] 2.0 mg/dL Normal 1.6 - 2 .4 mg/dL ADM SS MCH (RBC) [Entitic mass] 27.6 pg Normal 27.0 - 33.0 pg AH Workflow SS MCHC 32.3 G/dL Normal 32.0 - 36.0 G/dL AH Workflow SS MCV (RBC) [Entitic vol] 85.4 fL Normal 80.0 - 99.0 fL Workflow SS Monocytes (Bld) [#/Vol] 0.5 103/mcL Normal 0.1 - 1.4 10^3/mcL AH Workflow SS Monocytes/100 WBC (Bld) 11.3 % Normal 2.0 - 13.0 % AH Workflow SS Neutrophils (Bld) [#/Vol] 3.0 103/mcL Normal 2.3 - 8.1 10^3/mcL AH Workflow SS Neutrophils/100 WBC (Bld) 61.7 % Normal 50.0 - 75.0 % AH Workflow SS Phosphate [Mass/Vol] 3.7 mg/dL Normal 2.4 - 5 .1 mg/dL ADM SS Comment on above: Interpretive Data: * *Note - New Reference Range in effect 19 Platelet mean volume (Bld) [Entitic vol] 9.3 fL Normal 6.6 - 10.5 fL AH Workflow SS Platelets (Bld) [#/Vol] 144 103/mcL Low 150 - 450 10^3/mcL AH Workflow SS Potassium [Moles/Vol] 4.0 mmol/L Normal 3.5 - 5.0 mEq/L AH ADM SS Protein [Mass/Vol] 5.4 G/dL Low 5.7 - 8.2 G/dL AH ADM SS Comment on above: Interpretive Data: * *Note - New Reference Range in effect 19 RBC (Bld) [#/Vol] 4.40 106/mcL Normal 4.10 - 5.3 0 10^6/mcL AH Workflow SS Sodium [Moles/Vol] 142 mmol/L Normal 136 - 145 mEq/L ADM SS Urea nitrogen [Mass/Vol] 19.0 mg/dL Normal 8.0 - 22.0 mg/dL ADM SS Urea nitrogen/Creatinine [Mass ratio] 16.0 ratio Normal 10.0 - 22.0 ratio AH ADM SS WBC (Bld) [#/Vol] 4.9 103/mcL Normal 4.5 - 10.8 10^3/mcL Workflow SS MGon 04-16-2023 Magnesium [Mass/Vol] 2.0 mg/dL Normal 1.6-2.4 [facility] ([place]) Comment on above: Performed By: #### H FP, BMP, CBC, MG, PHOS, ADIFF, GFR, ANEU ####[place] [id number] PHOSon 04-16-2023 Phosphate [Mass/Vol] 3.7 mg/dL Normal 2.4-5.1 [facility] ([place]) Comment on above: Result Comment: No te - New Reference Range in effect 19 Performed By: #### H FP, BMP, CBC, MG, PHOS, ADIFF, GFR, ANEU ####[place] [address] PROon 04-16-2023 INR Coag (PPP) [Relative time] 1.0 {INR} Normal [facility] ([place]) Comment on above: Result Comment: [employer] (CHEST, 1992, 102:[id number])recommended therapeutic range for oral anticoagulant therapy is:LOW RISK: Prophylaxis of venous thrombosis INR: 2.0-3.0 Treatment of pulmonary embolism 2.0-3.0 Prevention of systemic embolism 2.0-3.0HIGH RISK: Mechanical prosthetic valves 2.5-3.5 Performed By: #### P RO ####[address] [address] PT Coag (PPP) [Time] 11.9 s Normal 9.0-14.2 [facility] ([place]) Comment on above: Result Comment: Effe ctive 10/03/07, Protime results may be affected by some antibiotics (i.e. Ciprofloxacin, Azithromycin, Bactrim) which may potentiate the action of oral anticoagulants, with further increases in Protime/INR. Performed By: #### P RO ####[place] [address] .Auto Diffon 04-15-2023 Basophil, Absolute 0.1 10 3/mcL Normal 0.0-0.3 [facility] ([place]) Comment on above: Performed By: #### B MP, MG, ADIFF, HFP, GFR, PHOS, ANEU, CBC ####[place] [address] Basophils/100 WBC (Bld) 1.1 % Normal 0.0-2.5 [facility] ([place]) Comment on above: Performed By: #### B MP, MG, ADIFF, HFP, GFR, PHOS, ANEU, CBC ####[place] [address] Eosinophil, Absolute 0.2 10 3/mcL Normal 0.0-0.7 [facility] ([place]) Comment on above: Performed By: #### B MP, MG, ADIFF, HFP, GFR, PHOS, ANEU, CBC ####[address] [address] Eosinophils/100 WBC (Bld) 3.8 % Normal 0.0-6.0 [facility] ([place]) Comment on above: Performed By: #### B MP, MG, ADIFF, HFP, GFR, PHOS, ANEU, CBC ####[address] [address] Lymphocyte, Absolute 1.4 10 3/mcL Normal 0.9-4.3 [facility] ([place]) Comment on above: Performed By: #### B MP, MG, ADIFF, HFP, GFR, PHOS, ANEU, CBC ####[address] [address] Lymphocytes/100 WBC (Bld) 22.9 % Normal 20.0-40.0 [facility] ([place]) Comment on above: Performed By: #### B MP, MG, ADIFF, HFP, GFR, PHOS, ANEU, CBC ####[address] [address] Monocyte, Absolute 0.6 10 3/mcL Normal 0.1-1.4 [facility] ([place]) Comment on above: Performed By: #### B MP, MG, ADIFF, HFP, GFR, PHOS, ANEU, CBC ####[address] [address] Monocytes/100 WBC (Bld) 10.1 % Normal 2.0-13.0 [facility] ([place] Comment on above: Performed By: #### B MP, MG, ADIFF, HFP, GFR, PHOS, ANEU, CBC ####[address] [address] Neutrophils/100 WBC (Bld) 62.1 % Normal 50.0-75.0 [facility] ([place] Comment on above: Performed By: #### B MP, MG, ADIFF, HFP, GFR, PHOS, ANEU, CBC ####[address] [address] .GFRon 04-15-2023 GFR 45 ml/min/1.73sqm Normal [facility] ([place]) Comment on above: Result Comment: GFR Population mean for , Non- Americans Ages 20-29 = 116 mL/min/1.73 sq.m. Ages 30-39 = 107 mL/min/1.73 sq.m. Ages 40-49 = 99 mL/min/1.73 sq.m. Ages 50-59 = 93 mL/min/1.73 sq.m. Ages 60-69 = 85 mL/min/1.73 sq.m. Ages 70+ = 75 mL/min/1.73 sq.m.Chronic Kidney Disease: Less than 60 mL/min/1.73 square metersEnd Stage Renal Disease: Less than 15 mL/min/1.73 square meters Performed By: #### B MP, MG, ADIFF, HFP, GFR, PHOS, ANEU, CBC ####[place] [address] GFR Non- 37 ml/min/1.73sqm Normal [facility] ([place] Comment on above: Result Comment: GFR Population mean for , Non- Americans Ages 20-29 = 116 mL/min/1.73 sq.m. Ages 30-39 = 107 mL/min/1.73 sq.m. Ages 40-49 = 99 mL/min/1.73 sq.m. Ages 50-59 = 93 mL/min/1.73 sq.m. Ages 60-69 = 85 mL/min/1.73 sq.m. Ages 70+ = 75 mL/min/1.73 sq.m.Chronic Kidney Disease: Less than 60 mL/min/1.73 square metersEnd Stage Renal Disease: Less than 15 mL/min/1.73 square meters Performed By: #### B MP, MG, ADIFF, HFP, GFR, PHOS, ANEU, CBC ####[place] [address] .NEUABSon 04-15-2023 Neutrophil, Absolute 3.9 10 3/mcL Normal 2.3-8.1 [facility] ([place] Comment on above: Performed By: #### B MP, MG, ADIFF, HFP, GFR, PHOS, ANEU, CBC ####[place] [address] APTTon 04-15-2023 aPTT Coag (Bld) [Time] 51.3 s High 25.0-35.0 [facility] ([place]) Comment on above: Result Comment: For Heparin anticoagulation therapy, the recommendedtherapeutic range is: 54-77 seconds (APTT Correlationwith Anti-Xa therapeutic range of 0.3-0.7 units/ml).PLEASE REFERENCE THE PHARMACY PROTOCOL FOR DOSING. Heparin dose (APTT) Heparin IV Normal [facility] ([place]) BMPon 04-15-2023 BUN/Creatinine Ratio 16.7 ratio Normal 10.0-22.0 [facility] ([place]) Comment on above: Performed By: #### B MP, MG, ADIFF, HFP, GFR, PHOS, ANEU, CBC ####[address] [address] Calcium [Mass/Vol] 9.4 mg/dL Normal 8.7-10.4 [facility] ([place]) Comment on above: Performed By: #### B MP, MG, ADIFF, HFP, GFR, PHOS, ANEU, CBC ####[address] [address] Chloride [Moles/Vol] 104 mmol/L Normal 98-110 [facility] ([place] Comment on above: Performed By: #### B MP, MG, ADIFF, HFP, GFR, PHOS, ANEU, CBC ####[address] [address] CO2 [Moles/Vol] 19 mmol/L Low 22-32 [facility] ([place] Comment on above: Performed By: #### B MP, MG, ADIFF, HFP, GFR, PHOS, ANEU, CBC ####[address] [address] Creatinine [Mass/Vol] 1.38 mg/dL High 0.50-1.20 [facility] ([place] Comment on above: Performed By: #### B MP, MG, ADIFF, HFP, GFR, PHOS, ANEU, CBC ####[address] [address] Electrolyte Balance 16.0 mEq/L High 4.0-15.0 [facility] ([place] Comment on above: Performed By: #### B MP, MG, ADIFF, HFP, GFR, PHOS, ANEU, CBC ####[address] [address] Glucose [Mass/Vol] 174 mg/dL High 82-115 [facility] ([place] Comment on above: Performed By: #### B MP, MG, ADIFF, HFP, GFR, PHOS, ANEU, CBC ####[place] [address] Potassium [Moles/Vol] 4.0 mmol/L Normal 3.5-5.0 [facility] ([place]) Comment on above: Result Comment: Spec imen slightly hemolyzed. Performed By: #### B MP, MG, ADIFF, HFP, GFR, PHOS, ANEU, CBC ####[place] [address] Sodium [Moles/Vol] 139 mmol/L Normal 136-145 [facility] ([place] Comment on above: Performed By: #### B MP, MG, ADIFF, HFP, GFR, PHOS, ANEU, CBC ####[place] [address] Urea nitrogen [Mass/Vol] 23.0 mg/dL High 8.0-22.0 [facility] ([place] Comment on above: Performed By: #### B MP, MG, ADIFF, HFP, GFR, PHOS, ANEU, CBC ####[place] [address] CBCon 04-15-2023 Erythrocyte distribution width (RBC) [Ratio] 16.8 % High 11.5-15.5 [facility] ([place] Comment on above: Performed By: #### B MP, MG, ADIFF, HFP, GFR, PHOS, ANEU, CBC ####[place] [address] Hematocrit (Bld) [Volume fraction] 41.6 % Normal 34.0-46.0 [facility] ([place] Comment on above: Performed By: #### B MP, MG, ADIFF, HFP, GFR, PHOS, ANEU, CBC ####[place] [address] Hgb 14.1 G/dL Normal 12.0-16.0 [facility] ([place] Comment on above: Performed By: #### B MP, MG, ADIFF, HFP, GFR, PHOS, ANEU, CBC ####[place] [address] MCH (RBC) [Entitic mass] 28.8 pg Normal 27.0-33.0 [facility] ([place] Comment on above: Performed By: #### B MP, MG, ADIFF, HFP, GFR, PHOS, ANEU, CBC ####[place] [address] MCHC 34.0 G/dL Normal 32.0-36.0 [facility] ([place] Comment on above: Performed By: #### B MP, MG, ADIFF, HFP, GFR, PHOS, ANEU, CBC ####[place] [address] MCV (RBC) [Entitic vol] 84.8 fL Normal 80.0-99.0 [facility] ([place] Comment on above: Performed By: #### B MP, MG, ADIFF, HFP, GFR, PHOS, ANEU, CBC ####[place] [address] Platelet 165 10 3/mcL Normal 150-450 [facility] ([place] Comment on above: Performed By: #### B MP, MG, ADIFF, HFP, GFR, PHOS, ANEU, CBC ####[place] [address] Platelet mean volume (Bld) [Entitic vol] 9.5 fL Normal 6.6-10.5 [facility] ([place] Comment on above: Performed By: #### B MP, MG, ADIFF, HFP, GFR, PHOS, ANEU, CBC ####[place] [address] RBC 4.91 10 6/mcL Normal 4.10-5.30 [facility] ([place] Comment on above: Performed By: #### B MP, MG, ADIFF, HFP, GFR, PHOS, ANEU, CBC ####[place] [address] WBC 6.3 10 3/mcL Normal 4.5-10.8 [facility] ([place] Comment on above: Performed By: #### B MP, MG, ADIFF, HFP, GFR, PHOS, ANEU, CBC ####[place] [address] HFPon 04-15-2023 Bili Indirect 0.4 mg/dL Normal 0.1-10.0 [facility] ([place] Comment on above: Performed By: #### B MP, MG, ADIFF, HFP, GFR, PHOS, ANEU, CBC ####[place] [address] Albumin Level 3.3 G/dL Normal 3.2-4.8 [facility] ([place] Comment on above: Performed By: #### B MP, MG, ADIFF, HFP, GFR, PHOS, ANEU, CBC ####[place] [address] Albumin/Globulin [Mass ratio] 0.8 {ratio} Low 0.9-1.6 [facility] ([place] Comment on above: Performed By: #### B MP, MG, ADIFF, HFP, GFR, PHOS, ANEU, CBC ####[place] [address] ALP [Catalytic activity/Vol] 78 U/L Normal 38-126 [facility] ([place] Comment on above: Performed By: #### B MP, MG, ADIFF, HFP, GFR, PHOS, ANEU, CBC ####[place] [address] ALT [Catalytic activity/Vol] 14 U/L Normal 10-49 [facility] ([place] Comment on above: Performed By: #### B MP, MG, ADIFF, HFP, GFR, PHOS, ANEU, CBC ####[place] [address] AST [Catalytic activity/Vol] 20 U/L Normal 8-34 [facility] ([place] Comment on above: Performed By: #### B MP, MG, ADIFF, HFP, GFR, PHOS, ANEU, CBC ####[place] [address] Bili Direct 0.3 mg/dL Normal 0.0-0.4 [facility] ([place] Comment on above: Result Comment: Use of this assay is not recommended for patients undergoing treatment with eltrombopag due to the potential for falsely elevated results. Performed By: #### B MP, MG, ADIFF, HFP, GFR, PHOS, ANEU, CBC ####[address] [address] Bili Total 0.70 mg/dL Normal 0.20-1.20 [facility] ([place]) Comment on above: Result Comment: Use of this assay is not recommended for patients undergoing treatment with eltrombopag due to the potential for falsely elevated results. Performed By: #### B MP, MG, ADIFF, HFP, GFR, PHOS, ANEU, CBC ####[address] [address] Globulin 4.0 G/dL High 1.5-3.8 [facility] ([place] Comment on above: Performed By: #### B MP, MG, ADIFF, HFP, GFR, PHOS, ANEU, CBC ####[place] [address] Total Protein 7.3 G/dL Normal 5.7-8.2 [facility] ([place] Comment on above: Result Comment: No te - New Reference Range in effect 19 Performed By: #### B MP, MG, ADIFF, HFP, GFR, PHOS, ANEU, CBC ####[place] [address] MGon 04-15-2023 Magnesium [Mass/Vol] 2.0 mg/dL Normal 1.6-2.4 [facility] ([place]) Comment on above: Performed By: #### B MP, MG, ADIFF, HFP, GFR, PHOS, ANEU, CBC ####[address] [address] PHOSon 04-15-2023 Phosphate [Mass/Vol] 3.9 mg/dL Normal 2.4-5.1 [facility] ([place]) Comment on above: Result Comment: No te - New Reference Range in effect 19 Performed By: #### B MP, MG, ADIFF, HFP, GFR, PHOS, ANEU, CBC ####[address] [address] .Auto Diffon 04-14-2023 Basophil, Absolute 0.1 10 3/mcL Normal 0.0-0.3 [facility] ([place]) Comment on above: Performed By: #### A DIFF, HFP, ANEU, CBC, GFR, BMP, PHOS, MG ####[address] [address] Basophils/100 WBC (Bld) 1.2 % Normal 0.0-2.5 [facility] ([place]) Comment on above: Performed By: #### A DIFF, HFP, ANEU, CBC, GFR, BMP, PHOS, MG ####[address] [address] Eosinophil, Absolute 0.2 10 3/mcL Normal 0.0-0.7 [facility] ([place]) Comment on above: Performed By: #### A DIFF, HFP, ANEU, CBC, GFR, BMP, PHOS, MG ####[address] [address] Eosinophils/100 WBC (Bld) 3.5 % Normal 0.0-6.0 [facility] ([place]) Comment on above: Performed By: #### A DIFF, HFP, ANEU, CBC, GFR, BMP, PHOS, MG ####[address] [address] Lymphocyte, Absolute 0.9 10 3/mcL Normal 0.9-4.3 [facility] ([place] Comment on above: Performed By: #### A DIFF, HFP, ANEU, CBC, GFR, BMP, PHOS, MG ####[address] [address] Lymphocytes/100 WBC (Bld) 20.2 % Normal 20.0-40.0 [facility] ([place]) Comment on above: Performed By: #### A DIFF, HFP, ANEU, CBC, GFR, BMP, PHOS, MG ####[address] [address] Monocyte, Absolute 0.5 10 3/mcL Normal 0.1-1.4 [facility] ([place]) Comment on above: Performed By: #### A DIFF, HFP, ANEU, CBC, GFR, BMP, PHOS, MG ####[address] [address] Monocytes/100 WBC (Bld) 11.6 % Normal 2.0-13.0 [facility] ([place]) Comment on above: Performed By: #### A DIFF, HFP, ANEU, CBC, GFR, BMP, PHOS, MG ####[address] [address] Neutrophils/100 WBC (Bld) 63.5 % Normal 50.0-75.0 [facility] ([place]) Comment on above: Performed By: #### A DIFF, HFP, ANEU, CBC, GFR, BMP, PHOS, MG ####[address] [address] .GFRon 04-14-2023 GFR Non- 35 ml/min/1.73sqm Normal [facility] ([place]) Comment on above: Result Comment: GFR Population mean for , Non- Americans Ages 20-29 = 116 mL/min/1.73 sq.m. Ages 30-39 = 107 mL/min/1.73 sq.m. Ages 40-49 = 99 mL/min/1.73 sq.m. Ages 50-59 = 93 mL/min/1.73 sq.m. Ages 60-69 = 85 mL/min/1.73 sq.m. Ages 70+ = 75 mL/min/1.73 sq.m.Chronic Kidney Disease: Less than 60 mL/min/1.73 square metersEnd Stage Renal Disease: Less than 15 mL/min/1.73 square meters Performed By: #### A DIFF, HFP, ANEU, CBC, GFR, BMP, PHOS, MG ####[address] [address] GFR 42 ml/min/1.73sqm Normal [facility] ([place]) Comment on above: Result Comment: GFR Population mean for , Non- Americans Ages 20-29 = 116 mL/min/1.73 sq.m. Ages 30-39 = 107 mL/min/1.73 sq.m. Ages 40-49 = 99 mL/min/1.73 sq.m. Ages 50-59 = 93 mL/min/1.73 sq.m. Ages 60-69 = 85 mL/min/1.73 sq.m. Ages 70+ = 75 mL/min/1.73 sq.m.Chronic Kidney Disease: Less than 60 mL/min/1.73 square metersEnd Stage Renal Disease: Less than 15 mL/min/1.73 square meters Performed By: #### A DIFF, HFP, ANEU, CBC, GFR, BMP, PHOS, MG ####[address] [address] .NEUABSon 04-14-2023 Neutrophil, Absolute 2.8 10 3/mcL Normal 2.3-8.1 [facility] [facility] ([place]) Comment on above: Performed By: #### A DIFF, HFP, ANEU, CBC, GFR, BMP, PHOS, MG ####[address] [address] APTTon 04-14-2023 aPTT Coag (Bld) [Time] 49.0 s High 25.0-35.0 [facility] ([place]) Comment on above: Result Comment: For Heparin anticoagulation therapy, the recommendedtherapeutic range is: 54-77 seconds (APTT Correlationwith Anti-Xa therapeutic range of 0.3-0.7 units/ml).PLEASE REFERENCE THE PHARMACY PROTOCOL FOR DOSING. Heparin dose (APTT) Heparin IV Normal [facility] ([place]) aPTT Coag (Bld) [Time] 53.5 s High 25.0-35.0 [facility] ([place]) Comment on above: Result Comment: For Heparin anticoagulation therapy, the recommendedtherapeutic range is: 54-77 seconds (APTT Correlationwith Anti-Xa therapeutic range of 0.3-0.7 units/ml).PLEASE REFERENCE THE PHARMACY PROTOCOL FOR DOSING. Heparin dose (APTT) Heparin IV Normal [facility] ([place] BMPon 04-14-2023 BUN/Creatinine Ratio 14.9 ratio Normal 10.0-22.0 [facility] ([place]) Comment on above: Performed By: #### A DIFF, HFP, ANEU, CBC, GFR, BMP, PHOS, MG ####[address] [address] Calcium [Mass/Vol] 9.6 mg/dL Normal 8.7-10.4 [facility] ([place]) Comment on above: Performed By: #### A DIFF, HFP, ANEU, CBC, GFR, BMP, PHOS, MG ####[address] [address] Chloride [Moles/Vol] 107 mmol/L Normal 98-110 [facility] ([place]) Comment on above: Performed By: #### A DIFF, HFP, ANEU, CBC, GFR, BMP, PHOS, MG ####[place] [address] CO2 [Moles/Vol] 23 mmol/L Normal 22-32 [facility] ([place]) Comment on above: Performed By: #### A DIFF, HFP, ANEU, CBC, GFR, BMP, PHOS, MG ####[place] [address] Creatinine [Mass/Vol] 1.48 mg/dL High 0.50-1.20 [facility] ([place] Comment on above: Performed By: #### A DIFF, HFP, ANEU, CBC, GFR, BMP, PHOS, MG ####[place] [address] Electrolyte Balance 9.0 mEq/L Normal 4.0-15.0 [facility] ([place] Comment on above: Performed By: #### A DIFF, HFP, ANEU, CBC, GFR, BMP, PHOS, MG ####[address] [address] Glucose [Mass/Vol] 208 mg/dL High 82-115 [facility] ([place] Comment on above: Performed By: #### A DIFF, HFP, ANEU, CBC, GFR, BMP, PHOS, MG ####[place] [address] Potassium [Moles/Vol] 4.1 mmol/L Normal 3.5-5.0 [facility] ([place] Comment on above: Performed By: #### A DIFF, HFP, ANEU, CBC, GFR, BMP, PHOS, MG ####[place] [address] Sodium [Moles/Vol] 139 mmol/L Normal 136-145 [facility] ([place] Comment on above: Performed By: #### A DIFF, HFP, ANEU, CBC, GFR, BMP, PHOS, MG ####[place] [address] Urea nitrogen [Mass/Vol] 22.0 mg/dL Normal 8.0-22.0 [facility] ([place] Comment on above: Performed By: #### A DIFF, HFP, ANEU, CBC, GFR, BMP, PHOS, MG ####[place] [address] CBCon 04-14-2023 Erythrocyte distribution width (RBC) [Ratio] 16.7 % High 11.5-15.5 [facility] ([place] Comment on above: Performed By: #### A DIFF, HFP, ANEU, CBC, GFR, BMP, PHOS, MG ####[place] [address] Hematocrit (Bld) [Volume fraction] 42.8 % Normal 34.0-46.0 [facility] ([place] Comment on above: Performed By: #### A DIFF, HFP, ANEU, CBC, GFR, BMP, PHOS, MG ####[place] [address] Hgb 14.2 G/dL Normal 12.0-16.0 [facility] ([place] Comment on above: Performed By: #### A DIFF, HFP, ANEU, CBC, GFR, BMP, PHOS, MG ####[place] [address] MCH (RBC) [Entitic mass] 28.2 pg Normal 27.0-33.0 [facility] ([place] Comment on above: Performed By: #### A DIFF, HFP, ANEU, CBC, GFR, BMP, PHOS, MG ####[place] [address] MCHC 33.3 G/dL Normal 32.0-36.0 [facility] ([place] Comment on above: Performed By: #### A DIFF, HFP, ANEU, CBC, GFR, BMP, PHOS, MG ####[place] [address] MCV (RBC) [Entitic vol] 84.6 fL Normal 80.0-99.0 [facility] ([place] Comment on above: Performed By: #### A DIFF, HFP, ANEU, CBC, GFR, BMP, PHOS, MG ####[place] [address] Platelet 168 10 3/mcL Normal 150-450 [facility] ([place] Comment on above: Performed By: #### A DIFF, HFP, ANEU, CBC, GFR, BMP, PHOS, MG ####[place] [address] Platelet mean volume (Bld) [Entitic vol] 9.8 fL Normal 6.6-10.5 [facility] ([place] Comment on above: Performed By: #### A DIFF, HFP, ANEU, CBC, GFR, BMP, PHOS, MG ####[place] [address] RBC 5.06 10 6/mcL Normal 4.10-5.30 [facility] ([place] Comment on above: Performed By: #### A DIFF, HFP, ANEU, CBC, GFR, BMP, PHOS, MG ####[place] [address] WBC 4.4 10 3/mcL Low 4.5-10.8 [facility] ([place] Comment on above: Performed By: #### A DIFF, HFP, ANEU, CBC, GFR, BMP, PHOS, MG ####[place] [address] HFPon 04-14-2023 Bili Indirect 0.4 mg/dL Normal 0.1-10.0 [facility] ([place] Comment on above: Performed By: #### A DIFF, HFP, ANEU, CBC, GFR, BMP, PHOS, MG ####[place] [address] Albumin Level 3.0 G/dL Low 3.2-4.8 [facility] ([place] Comment on above: Performed By: #### A DIFF, HFP, ANEU, CBC, GFR, BMP, PHOS, MG ####[place] [id number] Albumin/Globulin [Mass ratio] 0.8 {ratio} Low 0.9-1.6 [facility] ([place] Comment on above: Performed By: #### A DIFF, HFP, ANEU, CBC, GFR, BMP, PHOS, MG ####[place] [id number] ALP [Catalytic activity/Vol] 73 U/L Normal 38-126 [facility] ([place] Comment on above: Performed By: #### A DIFF, HFP, ANEU, CBC, GFR, BMP, PHOS, MG ####[place] [id number] ALT [Catalytic activity/Vol] 20 U/L Normal 10-49 [facility] ([place] Comment on above: Performed By: #### A DIFF, HFP, ANEU, CBC, GFR, BMP, PHOS, MG ####[place] [id number] AST [Catalytic activity/Vol] 18 U/L Normal 8-34 [facility] ([place] Comment on above: Performed By: #### A DIFF, HFP, ANEU, CBC, GFR, BMP, PHOS, MG ####[place] [address] Bili Direct 0.3 mg/dL Normal 0.0-0.4 [facility] ([place] Comment on above: Result Comment: Use of this assay is not recommended for patients undergoing treatment with eltrombopag due to the potential for falsely elevated results. Performed By: #### A DIFF, HFP, ANEU, CBC, GFR, BMP, PHOS, MG ####[place] [address] Bili Total 0.70 mg/dL Normal 0.20-1.20 [facility] ([place]) Comment on above: Result Comment: Use of this assay is not recommended for patients undergoing treatment with eltrombopag due to the potential for falsely elevated results. Performed By: #### A DIFF, HFP, ANEU, CBC, GFR, BMP, PHOS, MG ####[address] [address] Globulin 3.7 G/dL Normal 1.5-3.8 [facility] ([place] Comment on above: Performed By: #### A DIFF, HFP, ANEU, CBC, GFR, BMP, PHOS, MG ####[place] [address] Total Protein 6.7 G/dL Normal 5.7-8.2 [facility] ([place]) Comment on above: Result Comment: No te - New Reference Range in effect 19 Performed By: #### A DIFF, HFP, ANEU, CBC, GFR, BMP, PHOS, MG ####[place] [address] MGon 04-14-2023 Magnesium [Mass/Vol] 2.0 mg/dL Normal 1.6-2.4 [facility] ([place]) Comment on above: Performed By: #### A DIFF, HFP, ANEU, CBC, GFR, BMP, PHOS, MG ####[place] [address] PHOSon 04-14-2023 Phosphate [Mass/Vol] 4.9 mg/dL Normal 2.4-5.1 [facility] ([place] Comment on above: Result Comment: No te - New Reference Range in effect 19 Performed By: #### A DIFF, HFP, ANEU, CBC, GFR, BMP, PHOS, MG ####[place] [address] .Auto Diffon 04-13-2023 Basophil, Absolute 0.1 10 3/mcL Normal 0.0-0.3 [facility] ([place] Comment on above: Performed By: #### B MP, ADIFF, CBC, HFP, MG, ANEU, GFR, PHOS ####[address] [address] Basophils/100 WBC (Bld) 1.9 % Normal 0.0-2.5 [facility] ([place]) Comment on above: Performed By: #### B MP, ADIFF, CBC, HFP, MG, ANEU, GFR, PHOS ####[address] [address] Eosinophil, Absolute 0.2 10 3/mcL Normal 0.0-0.7 [facility] [place] ([place]) Comment on above: Performed By: #### B MP, ADIFF, CBC, HFP, MG, ANEU, GFR, PHOS ####[address] [address] Eosinophils/100 WBC (Bld) 2.9 % Normal 0.0-6.0 [facility] ([place] Comment on above: Performed By: #### B MP, ADIFF, CBC, HFP, MG, ANEU, GFR, PHOS ####[address] [address] Lymphocyte, Absolute 1.2 10 3/mcL Normal 0.9-4.3 [facility] [place] ([place] Comment on above: Performed By: #### B MP, ADIFF, CBC, HFP, MG, ANEU, GFR, PHOS ####[address] [address] Lymphocytes/100 WBC (Bld) 23.0 % Normal 20.0-40.0 [facility] ([place] Comment on above: Performed By: #### B MP, ADIFF, CBC, HFP, MG, ANEU, GFR, PHOS ####[address] [address] Monocyte, Absolute 0.6 10 3/mcL Normal 0.1-1.4 [facility] ([place] Comment on above: Performed By: #### B MP, ADIFF, CBC, HFP, MG, ANEU, GFR, PHOS ####[address] [address] Monocytes/100 WBC (Bld) 10.5 % Normal 2.0-13.0 [facility] ([place] Comment on above: Performed By: #### B MP, ADIFF, CBC, HFP, MG, ANEU, GFR, PHOS ####[address] [address] Neutrophils/100 WBC (Bld) 61.7 % Normal 50.0-75.0 [facility] ([place] Comment on above: Performed By: #### B MP, ADIFF, CBC, HFP, MG, ANEU, GFR, PHOS ####[address] [address] .GFRon 04-13-2023 GFR 48 ml/min/1.73sqm Normal [facility] ([place] Comment on above: Result Comment: GFR Population mean for , Non- Americans Ages 20-29 = 116 mL/min/1.73 sq.m. Ages 30-39 = 107 mL/min/1.73 sq.m. Ages 40-49 = 99 mL/min/1.73 sq.m. Ages 50-59 = 93 mL/min/1.73 sq.m. Ages 60-69 = 85 mL/min/1.73 sq.m. Ages 70+ = 75 mL/min/1.73 sq.m.Chronic Kidney Disease: Less than 60 mL/min/1.73 square metersEnd Stage Renal Disease: Less than 15 mL/min/1.73 square meters Performed By: #### B MP, ADIFF, CBC, HFP, MG, ANEU, GFR, PHOS ####[address] [address] GFR Non- 39 ml/min/1.73sqm Normal [facility] ([place] Comment on above: Result Comment: GFR Population mean for , Non- Americans Ages 20-29 = 116 mL/min/1.73 sq.m. Ages 30-39 = 107 mL/min/1.73 sq.m. Ages 40-49 = 99 mL/min/1.73 sq.m. Ages 50-59 = 93 mL/min/1.73 sq.m. Ages 60-69 = 85 mL/min/1.73 sq.m. Ages 70+ = 75 mL/min/1.73 sq.m.Chronic Kidney Disease: Less than 60 mL/min/1.73 square metersEnd Stage Renal Disease: Less than 15 mL/min/1.73 square meters Performed By: #### B MP, ADIFF, CBC, HFP, MG, ANEU, GFR, PHOS ####[address] [address] .NEUABSon 04-13-2023 Neutrophil, Absolute 3.3 10 3/mcL Normal 2.3-8.1 [facility] [place] ([place] Comment on above: Performed By: #### B MP, ADIFF, CBC, HFP, MG, ANEU, GFR, PHOS ####[address] [address] APTTon 04-13-2023 aPTT Coag (Bld) [Time] 62.2 s High 25.0-35.0 [facility] ([place] Comment on above: Result Comment: For Heparin anticoagulation therapy, the recommendedtherapeutic range is: 54-77 seconds (APTT Correlationwith Anti-Xa therapeutic range of 0.3-0.7 units/ml).PLEASE REFERENCE THE PHARMACY PROTOCOL FOR DOSING. Heparin dose (APTT) Heparin IV Normal [facility] [place] aPTT Coag (Bld) [Time] 77.0 s High 25.0-35.0 [facility] ([place] Comment on above: Result Comment: For Heparin anticoagulation therapy, the recommendedtherapeutic range is: 54-77 seconds (APTT Correlationwith Anti-Xa therapeutic range of 0.3-0.7 units/ml).PLEASE REFERENCE THE PHARMACY PROTOCOL FOR DOSING. Heparin dose (APTT) Heparin IV Normal [facility]) aPTT Coag (Bld) [Time] 83.3 s High 25.0-35.0 [facility] ([place] Comment on above: Result Comment: For Heparin anticoagulation therapy, the recommendedtherapeutic range is: 54-77 seconds (APTT Correlationwith Anti-Xa therapeutic range of 0.3-0.7 units/ml).PLEASE REFERENCE THE PHARMACY PROTOCOL FOR DOSING. Heparin dose (APTT) Heparin IV Normal [facility]) BMPon 04-13-2023 BUN/Creatinine Ratio 15.9 ratio Normal 10.0-22.0 [facility] ([place] Comment on above: Performed By: #### B MP, ADIFF, CBC, HFP, MG, ANEU, GFR, PHOS ####[address] [address] Calcium [Mass/Vol] 10.1 mg/dL Normal 8.7-10.4 [facility] ([place] Comment on above: Performed By: #### B MP, ADIFF, CBC, HFP, MG, ANEU, GFR, PHOS ####[address] [address] Chloride [Moles/Vol] 106 mmol/L Normal 98-110 [facility] ([place] Comment on above: Performed By: #### B MP, ADIFF, CBC, HFP, MG, ANEU, GFR, PHOS ####[address] [address] CO2 [Moles/Vol] 21 mmol/L Low 22-32 [facility] ([place] Comment on above: Performed By: #### B MP, ADIFF, CBC, HFP, MG, ANEU, GFR, PHOS ####[address] [address] Creatinine [Mass/Vol] 1.32 mg/dL High 0.50-1.20 [facility] ([place] Comment on above: Performed By: #### B MP, ADIFF, CBC, HFP, MG, ANEU, GFR, PHOS ####[address] [address] Electrolyte Balance 13.0 mEq/L Normal 4.0-15.0 [facility] ([place] Comment on above: Performed By: #### B MP, ADIFF, CBC, HFP, MG, ANEU, GFR, PHOS ####[address] [address] Glucose [Mass/Vol] 147 mg/dL High 82-115 [facility] ([place] Comment on above: Performed By: #### B MP, ADIFF, CBC, HFP, MG, ANEU, GFR, PHOS ####[address] [address] Potassium [Moles/Vol] 4.4 mmol/L Normal 3.5-5.0 [facility] ([place] Comment on above: Result Comment: Spec imen slightly hemolyzed. Performed By: #### B MP, ADIFF, CBC, HFP, MG, ANEU, GFR, PHOS ####[place] [address] Sodium [Moles/Vol] 140 mmol/L Normal 136-145 [facility] ([place] Comment on above: Performed By: #### B MP, ADIFF, CBC, HFP, MG, ANEU, GFR, PHOS ####[place] [address] Urea nitrogen [Mass/Vol] 21.0 mg/dL Normal 8.0-22.0 [facility] ([place] Comment on above: Performed By: #### B MP, ADIFF, CBC, HFP, MG, ANEU, GFR, PHOS ####[place] [address] CBCon 04-13-2023 Erythrocyte distribution width (RBC) [Ratio] 16.3 % High 11.5-15.5 [facility] ([place] Comment on above: Performed By: #### B MP, ADIFF, CBC, HFP, MG, ANEU, GFR, PHOS ####[place] [address] Hematocrit (Bld) [Volume fraction] 43.3 % Normal 34.0-46.0 [facility] ([place] Comment on above: Performed By: #### B MP, ADIFF, CBC, HFP, MG, ANEU, GFR, PHOS ####[place] [address] Hgb 14.4 G/dL Normal 12.0-16.0 [facility] ([place] Comment on above: Performed By: #### B MP, ADIFF, CBC, HFP, MG, ANEU, GFR, PHOS ####[place] [address] MCH (RBC) [Entitic mass] 27.9 pg Normal 27.0-33.0 [facility] ([place] Comment on above: Performed By: #### B MP, ADIFF, CBC, HFP, MG, ANEU, GFR, PHOS ####[place] [address] MCHC 33.3 G/dL Normal 32.0-36.0 [facility] ([place] Comment on above: Performed By: #### B MP, ADIFF, CBC, HFP, MG, ANEU, GFR, PHOS ####[place] [address] MCV (RBC) [Entitic vol] 83.9 fL Normal 80.0-99.0 [facility] ([place] Comment on above: Performed By: #### B MP, ADIFF, CBC, HFP, MG, ANEU, GFR, PHOS ####[place] [address] Platelet 182 10 3/mcL Normal 150-450 [facility] ([place] Comment on above: Performed By: #### B MP, ADIFF, CBC, HFP, MG, ANEU, GFR, PHOS ####[place] [address] Platelet mean volume (Bld) [Entitic vol] 9.8 fL Normal 6.6-10.5 [facility] ([place] Comment on above: Performed By: #### B MP, ADIFF, CBC, HFP, MG, ANEU, GFR, PHOS ####[place] [address] RBC 5.17 10 6/mcL Normal 4.10-5.30 [facility] ([place] Comment on above: Performed By: #### B MP, ADIFF, CBC, HFP, MG, ANEU, GFR, PHOS ####[place] [address] WBC 5.3 10 3/mcL Normal 4.5-10.8 [facility] ([place] Comment on above: Performed By: #### B MP, ADIFF, CBC, HFP, MG, ANEU, GFR, PHOS ####[place] [address] HFPon 04-13-2023 Bili Indirect 0.5 mg/dL Normal 0.1-10.0 [facility] ([place] Comment on above: Performed By: #### B MP, ADIFF, CBC, HFP, MG, ANEU, GFR, PHOS ####[place] [address] Albumin Level 3.1 G/dL Low 3.2-4.8 [facility] ([place] Comment on above: Performed By: #### B MP, ADIFF, CBC, HFP, MG, ANEU, GFR, PHOS ####[place] [address] Albumin/Globulin [Mass ratio] 0.8 {ratio} Low 0.9-1.6 [facility] ([place] Comment on above: Performed By: #### B MP, ADIFF, CBC, HFP, MG, ANEU, GFR, PHOS ####[place] [address] ALP [Catalytic activity/Vol] 77 U/L Normal 38-126 [facility] ([place] Comment on above: Performed By: #### B MP, ADIFF, CBC, HFP, MG, ANEU, GFR, PHOS ####[place] [address] ALT [Catalytic activity/Vol] 21 U/L Normal 10-49 [facility] ([place] Comment on above: Performed By: #### B MP, ADIFF, CBC, HFP, MG, ANEU, GFR, PHOS ####[place] [id number] AST [Catalytic activity/Vol] 24 U/L Normal 8-34 [facility] ([place] Comment on above: Performed By: #### B MP, ADIFF, CBC, HFP, MG, ANEU, GFR, PHOS ####[place] [id number] Bili Direct 0.3 mg/dL Normal 0.0-0.4 [facility] ([place] Comment on above: Result Comment: Use of this assay is not recommended for patients undergoing treatment with eltrombopag due to the potential for falsely elevated results. Performed By: #### B MP, ADIFF, CBC, HFP, MG, ANEU, GFR, PHOS ####[place] [address] Bili Total 0.80 mg/dL Normal 0.20-1.20 [facility] ([place] Comment on above: Result Comment: Use of this assay is not recommended for patients undergoing treatment with eltrombopag due to the potential for falsely elevated results. Performed By: #### B MP, ADIFF, CBC, HFP, MG, ANEU, GFR, PHOS ####[place] [address] Globulin 3.9 G/dL High 1.5-3.8 [facility] ([place] Comment on above: Performed By: #### B MP, ADIFF, CBC, HFP, MG, ANEU, GFR, PHOS ####[place] [address] Total Protein 7.0 G/dL Normal 5.7-8.2 [facility] ([place] Comment on above: Result Comment: No te - New Reference Range in effect 19 Performed By: #### B MP, ADIFF, CBC, HFP, MG, ANEU, GFR, PHOS ####[place] [address] MGon 04-13-2023 Magnesium [Mass/Vol] 2.1 mg/dL Normal 1.6-2.4 [facility] ([place] Comment on above: Performed By: #### B MP, ADIFF, CBC, HFP, MG, ANEU, GFR, PHOS ####[place] [address] PHOSon 04-13-2023 Phosphate [Mass/Vol] 5.3 mg/dL High 2.4-5.1 [facility] ([place] Comment on above: Result Comment: No te - New Reference Range in effect 19 Performed By: #### B MP, ADIFF, CBC, HFP, MG, ANEU, GFR, PHOS ####[place] [address] XR ESOPHOGRAMon 04-13-2023 XR ESOPHOGRAM Normal [facility] ([place]) .Auto Diffon 04-12-2023 Basophil, Absolute 0.1 10 3/mcL Normal 0.0-0.3 [facility] ([place] Comment on above: Performed By: #### A SAMEER, CBC, BMP, GFR, MG, HFP, ADIFF, PHOS ####[address] [address] Basophils/100 WBC (Bld) 2.1 % Normal 0.0-2.5 [facility] ([place] Comment on above: Performed By: #### A SAMEER, CBC, BMP, GFR, MG, HFP, ADIFF, PHOS ####[address] [address] Eosinophil, Absolute 0.2 10 3/mcL Normal 0.0-0.7 [facility] [place] Comment on above: Performed By: #### A SAMEER, CBC, BMP, GFR, MG, HFP, ADIFF, PHOS ####[address] [address] Eosinophils/100 WBC (Bld) 4.7 % Normal 0.0-6.0 [facility] ([place] Comment on above: Performed By: #### A SAMEER, CBC, BMP, GFR, MG, HFP, ADIFF, PHOS ####[address] [address] Lymphocyte, Absolute 1.1 10 3/mcL Normal 0.9-4.3 [facility] [place] Comment on above: Performed By: #### A SAMEER, CBC, BMP, GFR, MG, HFP, ADIFF, PHOS ####[address] [address] Lymphocytes/100 WBC (Bld) 23.7 % Normal 20.0-40.0 [facility] ([place] Comment on above: Performed By: #### A SAMEER, CBC, BMP, GFR, MG, HFP, ADIFF, PHOS ####[address] [address] Monocyte, Absolute 0.5 10 3/mcL Normal 0.1-1.4 [facility] ([place] Comment on above: Performed By: #### A SAMEER, CBC, BMP, GFR, MG, HFP, ADIFF, PHOS ####[address] [address] Monocytes/100 WBC (Bld) 11.7 % Normal 2.0-13.0 [facility] ([place]) Comment on above: Performed By: #### A SAMEER, CBC, BMP, GFR, MG, HFP, ADIFF, PHOS ####[address] [address] Neutrophils/100 WBC (Bld) 57.8 % Normal 50.0-75.0 [facility] ([place]) Comment on above: Performed By: #### A SAMEER, CBC, BMP, GFR, MG, HFP, ADIFF, PHOS ####[address] [address] .GFRon 04-12-2023 GFR 54 ml/min/1.73sqm Normal [facility] ([place]) Comment on above: Result Comment: GFR Population mean for , Non- Americans Ages 20-29 = 116 mL/min/1.73 sq.m. Ages 30-39 = 107 mL/min/1.73 sq.m. Ages 40-49 = 99 mL/min/1.73 sq.m. Ages 50-59 = 93 mL/min/1.73 sq.m. Ages 60-69 = 85 mL/min/1.73 sq.m. Ages 70+ = 75 mL/min/1.73 sq.m.Chronic Kidney Disease: Less than 60 mL/min/1.73 square metersEnd Stage Renal Disease: Less than 15 mL/min/1.73 square meters Performed By: #### A SAMEER, CBC, BMP, GFR, MG, HFP, ADIFF, PHOS ####[address] [address] GFR Non- 44 ml/min/1.73sqm Normal [facility] ([place]) Comment on above: Result Comment: GFR Population mean for , Non- Americans Ages 20-29 = 116 mL/min/1.73 sq.m. Ages 30-39 = 107 mL/min/1.73 sq.m. Ages 40-49 = 99 mL/min/1.73 sq.m. Ages 50-59 = 93 mL/min/1.73 sq.m. Ages 60-69 = 85 mL/min/1.73 sq.m. Ages 70+ = 75 mL/min/1.73 sq.m.Chronic Kidney Disease: Less than 60 mL/min/1.73 square metersEnd Stage Renal Disease: Less than 15 mL/min/1.73 square meters Performed By: #### A SAMEER, CBC, BMP, GFR, MG, HFP, ADIFF, PHOS ####[address] [address] .NEUABSon 04-12-2023 Neutrophil, Absolute 2.6 10 3/mcL Normal 2.3-8.1 [facility] [place] Comment on above: Performed By: #### A SAMEER, CBC, BMP, GFR, MG, HFP, ADIFF, PHOS ####[address] [address] APTTon 04-12-2023 aPTT Coag (Bld) [Time] 60.5 s High 25.0-35.0 [facility] ([place] Comment on above: Result Comment: Spec imen hemolyzed. Results may be affected.For Heparin anticoagulation therapy, the recommendedtherapeutic range is: 54-77 seconds (APTT Correlationwith Anti-Xa therapeutic range of 0.3-0.7 units/ml).PLEASE REFERENCE THE PHARMACY PROTOCOL FOR DOSING. Heparin dose (APTT) Heparin IV Normal [facility] [place] aPTT Coag (Bld) [Time] 71.4 s High 25.0-35.0 [facility] ([place] Comment on above: Result Comment: For Heparin anticoagulation therapy, the recommendedtherapeutic range is: 54-77 seconds (APTT Correlationwith Anti-Xa therapeutic range of 0.3-0.7 units/ml).PLEASE REFERENCE THE PHARMACY PROTOCOL FOR DOSING. Heparin dose (APTT) Heparin IV Normal [facility] [place] aPTT Coag (Bld) [Time] 48.3 s High 25.0-35.0 [facility] ([place] Comment on above: Result Comment: For Heparin anticoagulation therapy, the recommendedtherapeutic range is: 54-77 seconds (APTT Correlationwith Anti-Xa therapeutic range of 0.3-0.7 units/ml).PLEASE REFERENCE THE PHARMACY PROTOCOL FOR DOSING. Heparin dose (APTT) Heparin IV Normal [facility] [place] BMPon 04-12-2023 BUN/Creatinine Ratio 18.5 ratio Normal 10.0-22.0 [facility] ([place] Comment on above: Performed By: #### A SAMEER, CBC, BMP, GFR, MG, HFP, ADIFF, PHOS ####[address] [address] Calcium [Mass/Vol] 9.5 mg/dL Normal 8.7-10.4 [facility] ([place] Comment on above: Performed By: #### A SAMEER, CBC, BMP, GFR, MG, HFP, ADIFF, PHOS ####[address] [address] Chloride [Moles/Vol] 107 mmol/L Normal 98-110 [facility] ([place] Comment on above: Performed By: #### A SAMEER, CBC, BMP, GFR, MG, HFP, ADIFF, PHOS ####[address] [address] CO2 [Moles/Vol] 31 mmol/L Normal 22-32 [facility] ([place] Comment on above: Performed By: #### A SAMEER, CBC, BMP, GFR, MG, HFP, ADIFF, PHOS ####[address] [address] Creatinine [Mass/Vol] 1.19 mg/dL Normal 0.50-1.20 [facility] ([place] Comment on above: Performed By: #### A SAMEER, CBC, BMP, GFR, MG, HFP, ADIFF, PHOS ####[address] [address] Electrolyte Balance -1.0 mEq/L Low 4.0-15.0 [facility] ([place]) Comment on above: Performed By: #### A SAMEER, CBC, BMP, GFR, MG, HFP, ADIFF, PHOS ####[place] [address] Glucose [Mass/Vol] 87 mg/dL Normal 82-115 [facility] ([place]) Comment on above: Performed By: #### A SAMEER, CBC, BMP, GFR, MG, HFP, ADIFF, PHOS ####[place] [address] Potassium [Moles/Vol] 4.0 mmol/L Normal 3.5-5.0 [facility] ([place]) Comment on above: Result Comment: Spec imen slightly hemolyzed. Performed By: #### A SAMEER, CBC, BMP, GFR, MG, HFP, ADIFF, PHOS ####[place] [address] Sodium [Moles/Vol] 137 mmol/L Normal 136-145 [facility] ([place]) Comment on above: Performed By: #### A SAMEER, CBC, BMP, GFR, MG, HFP, ADIFF, PHOS ####[place] [address] Urea nitrogen [Mass/Vol] 22.0 mg/dL Normal 8.0-22.0 [facility] ([place]) Comment on above: Performed By: #### A SAMEER, CBC, BMP, GFR, MG, HFP, ADIFF, PHOS ####[place] [address] CBCon 04-12-2023 Erythrocyte distribution width (RBC) [Ratio] 16.2 % High 11.5-15.5 [facility] ([place]) Comment on above: Performed By: #### A SAMEER, CBC, BMP, GFR, MG, HFP, ADIFF, PHOS ####[place] [address] Hematocrit (Bld) [Volume fraction] 42.3 % Normal 34.0-46.0 [facility] ([place] Comment on above: Performed By: #### A SAMEER, CBC, BMP, GFR, MG, HFP, ADIFF, PHOS ####[place] [address] Hgb 14.0 G/dL Normal 12.0-16.0 [facility] ([place] Comment on above: Performed By: #### A SAMEER, CBC, BMP, GFR, MG, HFP, ADIFF, PHOS ####[place] [address] MCH (RBC) [Entitic mass] 27.9 pg Normal 27.0-33.0 [facility] ([place]) Comment on above: Performed By: #### A SAMEER, CBC, BMP, GFR, MG, HFP, ADIFF, PHOS ####[place] [address] MCHC 33.1 G/dL Normal 32.0-36.0 [facility] ([place]) Comment on above: Performed By: #### A SAMEER, CBC, BMP, GFR, MG, HFP, ADIFF, PHOS ####[place] [address] MCV (RBC) [Entitic vol] 84.3 fL Normal 80.0-99.0 [facility] ([place] Comment on above: Performed By: #### A SAMEER, CBC, BMP, GFR, MG, HFP, ADIFF, PHOS ####[place] [address] Platelet 176 10 3/mcL Normal 150-450 [facility] ([place] Comment on above: Performed By: #### A SAMEER, CBC, BMP, GFR, MG, HFP, ADIFF, PHOS ####[place] [address] Platelet mean volume (Bld) [Entitic vol] 9.7 fL Normal 6.6-10.5 [facility] ([place] Comment on above: Performed By: #### A SAMEER, CBC, BMP, GFR, MG, HFP, ADIFF, PHOS ####[place] [address] RBC 5.02 10 6/mcL Normal 4.10-5.30 [facility] ([place] Comment on above: Performed By: #### A SAMEER, CBC, BMP, GFR, MG, HFP, ADIFF, PHOS ####[place] [address] WBC 4.5 10 3/mcL Normal 4.5-10.8 [facility] ([place] Comment on above: Performed By: #### A SAMEER, CBC, BMP, GFR, MG, HFP, ADIFF, PHOS ####[address] [address] HFPon 04-12-2023 Bili Indirect 0.4 mg/dL Normal 0.1-10.0 [facility] ([place] Comment on above: Performed By: #### A SAMEER, CBC, BMP, GFR, MG, HFP, ADIFF, PHOS ####[place] [address] Albumin Level 2.8 G/dL Low 3.2-4.8 [facility] ([place] Comment on above: Performed By: #### A SAMEER, CBC, BMP, GFR, MG, HFP, ADIFF, PHOS ####[place] [address] Albumin/Globulin [Mass ratio] 0.7 {ratio} Low 0.9-1.6 [facility] ([place] Comment on above: Performed By: #### A SAMEER, CBC, BMP, GFR, MG, HFP, ADIFF, PHOS ####[place] [address] ALP [Catalytic activity/Vol] 75 U/L Normal 38-126 [facility] ([place] Comment on above: Performed By: #### A SAMEER, CBC, BMP, GFR, MG, HFP, ADIFF, PHOS ####[place] [id number] ALT [Catalytic activity/Vol] 21 U/L Normal 10-49 [facility] ([place] Comment on above: Performed By: #### A SAMEER, CBC, BMP, GFR, MG, HFP, ADIFF, PHOS ####[place] [id number] AST [Catalytic activity/Vol] 25 U/L Normal 8-34 [facility] ([place] Comment on above: Performed By: #### A SAMEER, CBC, BMP, GFR, MG, HFP, ADIFF, PHOS ####[address] [address] Bili Direct 0.3 mg/dL Normal 0.0-0.4 [facility] ([place] Comment on above: Result Comment: Use of this assay is not recommended for patients undergoing treatment with eltrombopag due to the potential for falsely elevated results. Performed By: #### A SAMEER, CBC, BMP, GFR, MG, HFP, ADIFF, PHOS ####[place] [address] Bili Total 0.70 mg/dL Normal 0.20-1.20 [facility] ([place] Comment on above: Result Comment: Use of this assay is not recommended for patients undergoing treatment with eltrombopag due to the potential for falsely elevated results. Performed By: #### A SAMEER, CBC, BMP, GFR, MG, HFP, ADIFF, PHOS ####[place] [address] Globulin 3.9 G/dL High 1.5-3.8 [facility] ([place] Comment on above: Performed By: #### A SAMEER, CBC, BMP, GFR, MG, HFP, ADIFF, PHOS ####[place] [address] Total Protein 6.7 G/dL Normal 5.7-8.2 [facility] ([place] Comment on above: Result Comment: No te - New Reference Range in effect 19 Performed By: #### A SAMEER, CBC, BMP, GFR, MG, HFP, ADIFF, PHOS ####[place] [address] MGon 04-12-2023 Magnesium [Mass/Vol] 2.1 mg/dL Normal 1.6-2.4 [facility] ([place]) Comment on above: Performed By: #### A SAMEER, CBC, BMP, GFR, MG, HFP, ADIFF, PHOS ####[place] [address] PHOSon 04-12-2023 Phosphate [Mass/Vol] 4.3 mg/dL Normal 2.4-5.1 [facility] ([place]) Comment on above: Result Comment: No te - New Reference Range in effect 19 Performed By: #### A SAMEER, CBC, BMP, GFR, MG, HFP, ADIFF, PHOS ####[address] [address] .Auto Diffon 04-11-2023 Basophil, Absolute 0.1 10 3/mcL Normal 0.0-0.3 [facility] ([place] Comment on above: Performed By: #### H FP, ADIFF, LIPID, PHOS, TSH, CBC, A1C, GFR, TROPHS, MG, ANEU, BMP ####[address] [address] Basophils/100 WBC (Bld) 1.3 % Normal 0.0-2.5 [facility] ([place] Comment on above: Performed By: #### H FP, ADIFF, LIPID, PHOS, TSH, CBC, A1C, GFR, TROPHS, MG, ANEU, BMP ####[address] [address] Eosinophil, Absolute 0.2 10 3/mcL Normal 0.0-0.7 [facility] ([place]) Comment on above: Performed By: #### H FP, ADIFF, LIPID, PHOS, TSH, CBC, A1C, GFR, TROPHS, MG, ANEU, BMP ####[address] [address] Eosinophils/100 WBC (Bld) 2.8 % Normal 0.0-6.0 [facility] ([place] Comment on above: Performed By: #### H FP, ADIFF, LIPID, PHOS, TSH, CBC, A1C, GFR, TROPHS, MG, ANEU, BMP ####[address] [address] Lymphocyte, Absolute 1.0 10 3/mcL Normal 0.9-4.3 [facility] ([place] Comment on above: Performed By: #### H FP, ADIFF, LIPID, PHOS, TSH, CBC, A1C, GFR, TROPHS, MG, ANEU, BMP ####[address] [address] Lymphocytes/100 WBC (Bld) 13.6 % Low 20.0-40.0 [facility] ([place] Comment on above: Performed By: #### H FP, ADIFF, LIPID, PHOS, TSH, CBC, A1C, GFR, TROPHS, MG, ANEU, BMP ####[address] [address] Monocyte, Absolute 0.6 10 3/mcL Normal 0.1-1.4 [facility] ([place] Comment on above: Performed By: #### H FP, ADIFF, LIPID, PHOS, TSH, CBC, A1C, GFR, TROPHS, MG, ANEU, BMP ####[address] [address] Monocytes/100 WBC (Bld) 8.6 % Normal 2.0-13.0 [facility] ([place] Comment on above: Performed By: #### H FP, ADIFF, LIPID, PHOS, TSH, CBC, A1C, GFR, TROPHS, MG, ANEU, BMP ####[address] [address] Neutrophils/100 WBC (Bld) 73.7 % Normal 50.0-75.0 [facility] ([place] Comment on above: Performed By: #### H FP, ADIFF, LIPID, PHOS, TSH, CBC, A1C, GFR, TROPHS, MG, ANEU, BMP ####[address] [address] .GFRon 04-11-2023 GFR Non- 60 ml/min/1.73sqm Normal [facility] ([place] Comment on above: Result Comment: GFR Population mean for , Non- Americans Ages 20-29 = 116 mL/min/1.73 sq.m. Ages 30-39 = 107 mL/min/1.73 sq.m. Ages 40-49 = 99 mL/min/1.73 sq.m. Ages 50-59 = 93 mL/min/1.73 sq.m. Ages 60-69 = 85 mL/min/1.73 sq.m. Ages 70+ = 75 mL/min/1.73 sq.m.Chronic Kidney Disease: Less than 60 mL/min/1.73 square metersEnd Stage Renal Disease: Less than 15 mL/min/1.73 square meters Performed By: #### H FP, ADIFF, LIPID, PHOS, TSH, CBC, A1C, GFR, TROPHS, MG, ANEU, BMP ####[address] [address] GFR >60 Normal [facility] ([place] Comment on above: Result Comment: GFR Population mean for , Non- Americans Ages 20-29 = 116 mL/min/1.73 sq.m. Ages 30-39 = 107 mL/min/1.73 sq.m. Ages 40-49 = 99 mL/min/1.73 sq.m. Ages 50-59 = 93 mL/min/1.73 sq.m. Ages 60-69 = 85 mL/min/1.73 sq.m. Ages 70+ = 75 mL/min/1.73 sq.m.Chronic Kidney Disease: Less than 60 mL/min/1.73 square metersEnd Stage Renal Disease: Less than 15 mL/min/1.73 square meters Performed By: #### H FP, ADIFF, LIPID, PHOS, TSH, CBC, A1C, GFR, TROPHS, MG, ANEU, BMP ####[place] [address] GFR >60 Normal [facility] ([place] Comment on above: Result Comment: GFR Population mean for , Non- Americans Ages 20-29 = 116 mL/min/1.73 sq.m. Ages 30-39 = 107 mL/min/1.73 sq.m. Ages 40-49 = 99 mL/min/1.73 sq.m. Ages 50-59 = 93 mL/min/1.73 sq.m. Ages 60-69 = 85 mL/min/1.73 sq.m. Ages 70+ = 75 mL/min/1.73 sq.m.Chronic Kidney Disease: Less than 60 mL/min/1.73 square metersEnd Stage Renal Disease: Less than 15 mL/min/1.73 square meters Performed By: #### H FP, PHOS, MG, ABOGEL, CBC, GFR, ADIFF, BMP, ANEU, ABSGEL, PBNP ####[address] [address] GFR Non- >60 Normal [facility] ([place] Comment on above: Result Comment: GFR Population mean for , Non- Americans Ages 20-29 = 116 mL/min/1.73 sq.m. Ages 30-39 = 107 mL/min/1.73 sq.m. Ages 40-49 = 99 mL/min/1.73 sq.m. Ages 50-59 = 93 mL/min/1.73 sq.m. Ages 60-69 = 85 mL/min/1.73 sq.m. Ages 70+ = 75 mL/min/1.73 sq.m.Chronic Kidney Disease: Less than 60 mL/min/1.73 square metersEnd Stage Renal Disease: Less than 15 mL/min/1.73 square meters Performed By: #### H FP, PHOS, MG, ABOGEL, CBC, GFR, ADIFF, BMP, ANEU, ABSGEL, PBNP ####[address] [address] .NEUABSon 04-11-2023 Neutrophil, Absolute 5.3 10 3/mcL Normal 2.3-8.1 [facility] [place] Comment on above: Performed By: #### H FP, ADIFF, LIPID, PHOS, TSH, CBC, A1C, GFR, TROPHS, MG, ANEU, BMP ####[address] [address] A1Con 04-11-2023 HbA1c (Bld) [Mass fraction] 9.9 % High 4.0-6.0 [facility] ([place] Comment on above: Performed By: #### H FP, ADIFF, LIPID, PHOS, TSH, CBC, A1C, GFR, TROPHS, MG, ANEU, BMP ####[address] [address] ABO/Rh (Gel)on 04-11-2023 ABO/Rh Interp Positive Invalid Interpretation Code [facility] ([place] Comment on above: Performed By: #### H FP, PHOS, MG, ABOGEL, CBC, GFR, ADIFF, BMP, ANEU, ABSGEL, PBNP ####[address] [address] ABS (Gel)on 04-11-2023 ABSC Interp (Gel) Negative Normal [facility] ([place] Comment on above: Performed By: #### H FP, PHOS, MG, ABOGEL, CBC, GFR, ADIFF, BMP, ANEU, ABSGEL, PBNP ####[place] [address] APTTon 04-11-2023 aPTT Coag (Bld) [Time] 41.3 s High 25.0-35.0 [facility] ([place] Comment on above: Result Comment: For Heparin anticoagulation therapy, the recommendedtherapeutic range is: 54-77 seconds (APTT Correlationwith Anti-Xa therapeutic range of 0.3-0.7 units/ml).PLEASE REFERENCE THE PHARMACY PROTOCOL FOR DOSING. Heparin dose (APTT) Unknown Normal [facility] [place] aPTT Coag (Bld) [Time] 40.3 s High 25.0-35.0 [facility] ([place] Comment on above: Result Comment: For Heparin anticoagulation therapy, the recommendedtherapeutic range is: 54-77 seconds (APTT Correlationwith Anti-Xa therapeutic range of 0.3-0.7 units/ml).PLEASE REFERENCE THE PHARMACY PROTOCOL FOR DOSING. Heparin dose (APTT) Heparin IV Normal [facility] [place] aPTT Coag (Bld) [Time] 35.6 s High 25.0-35.0 [facility] ([place] Comment on above: Result Comment: For Heparin anticoagulation therapy, the recommendedtherapeutic range is: 54-77 seconds (APTT Correlationwith Anti-Xa therapeutic range of 0.3-0.7 units/ml).PLEASE REFERENCE THE PHARMACY PROTOCOL FOR DOSING. Performed By: #### T RIGOBERTO PRO ####[place] [address] Heparin dose (APTT) Heparin IV Normal [facility] ([place] Comment on above: Performed By: #### T RIGOBERTO PRO ####[place] [address] BMPon 04-11-2023 BUN/Creatinine Ratio 18.5 ratio Normal 10.0-22.0 [facility] ([place] Comment on above: Performed By: #### H FP, ADIFF, LIPID, PHOS, TSH, CBC, A1C, GFR, TROPHS, MG, ANEU, BMP ####[address] [address] Calcium [Mass/Vol] 9.4 mg/dL Normal 8.7-10.4 [facility] ([place] Comment on above: Performed By: #### H FP, ADIFF, LIPID, PHOS, TSH, CBC, A1C, GFR, TROPHS, MG, ANEU, BMP ####[address] [address] Chloride [Moles/Vol] 106 mmol/L Normal 98-110 [facility] ([place] Comment on above: Performed By: #### H FP, ADIFF, LIPID, PHOS, TSH, CBC, A1C, GFR, TROPHS, MG, ANEU, BMP ####[address] [address] CO2 [Moles/Vol] 27 mmol/L Normal 22-32 [facility] ([place] Comment on above: Performed By: #### H FP, ADIFF, LIPID, PHOS, TSH, CBC, A1C, GFR, TROPHS, MG, ANEU, BMP ####[address] [address] Creatinine [Mass/Vol] 0.92 mg/dL Normal 0.50-1.20 [facility] ([place] Comment on above: Performed By: #### H FP, ADIFF, LIPID, PHOS, TSH, CBC, A1C, GFR, TROPHS, MG, ANEU, BMP ####[address] [address] Electrolyte Balance 6.0 mEq/L Normal 4.0-15.0 [facility] ([place] Comment on above: Performed By: #### H FP, ADIFF, LIPID, PHOS, TSH, CBC, A1C, GFR, TROPHS, MG, ANEU, BMP ####[address] [address] Glucose [Mass/Vol] 149 mg/dL High 82-115 [facility] ([place] Comment on above: Performed By: #### H FP, ADIFF, LIPID, PHOS, TSH, CBC, A1C, GFR, TROPHS, MG, ANEU, BMP ####[address] [address] Potassium [Moles/Vol] 3.8 mmol/L Normal 3.5-5.0 [facility] ([place] Comment on above: Performed By: #### H FP, ADIFF, LIPID, PHOS, TSH, CBC, A1C, GFR, TROPHS, MG, ANEU, BMP ####[address] [address] Sodium [Moles/Vol] 139 mmol/L Normal 136-145 [facility] ([place] Comment on above: Performed By: #### H FP, ADIFF, LIPID, PHOS, TSH, CBC, A1C, GFR, TROPHS, MG, ANEU, BMP ####[address] [address] Urea nitrogen [Mass/Vol] 17.0 mg/dL Normal 8.0-22.0 [facility] ([place] Comment on above: Performed By: #### H FP, ADIFF, LIPID, PHOS, TSH, CBC, A1C, GFR, TROPHS, MG, ANEU, BMP ####[place] [address] BUN/Creatinine Ratio 14.9 ratio Normal 10.0-22.0 [facility] ([place] Comment on above: Performed By: #### H FP, PHOS, MG, ABOGEL, CBC, GFR, ADIFF, BMP, ANEU, ABSGEL, PBNP ####[address] [address] Calcium [Mass/Vol] 9.8 mg/dL Normal 8.7-10.4 [facility] ([place] Comment on above: Performed By: #### H FP, PHOS, MG, ABOGEL, CBC, GFR, ADIFF, BMP, ANEU, ABSGEL, PBNP ####[address] [address] Chloride [Moles/Vol] 109 mmol/L Normal 98-110 [facility] ([place] Comment on above: Performed By: #### H FP, PHOS, MG, ABOGEL, CBC, GFR, ADIFF, BMP, ANEU, ABSGEL, PBNP ####[address] [address] CO2 [Moles/Vol] 25 mmol/L Normal 22-32 [facility] ([place] Comment on above: Performed By: #### H FP, PHOS, MG, ABOGEL, CBC, GFR, ADIFF, BMP, ANEU, ABSGEL, PBNP ####[address] [address] Creatinine [Mass/Vol] 0.87 mg/dL Normal 0.50-1.20 [facility] ([place] Comment on above: Performed By: #### H FP, PHOS, MG, ABOGEL, CBC, GFR, ADIFF, BMP, ANEU, ABSGEL, PBNP ####[address] [address] Electrolyte Balance -2.0 mEq/L Low 4.0-15.0 [facility] ([place] Comment on above: Performed By: #### H FP, PHOS, MG, ABOGEL, CBC, GFR, ADIFF, BMP, ANEU, ABSGEL, PBNP ####[address] [address] Glucose [Mass/Vol] 219 mg/dL High 82-115 [facility] ([place] Comment on above: Performed By: #### H FP, PHOS, MG, ABOGEL, CBC, GFR, ADIFF, BMP, ANEU, ABSGEL, PBNP ####[address] [address] Potassium [Moles/Vol] 4.0 mmol/L Normal 3.5-5.0 [facility] ([place] Comment on above: Performed By: #### H FP, PHOS, MG, ABOGEL, CBC, GFR, ADIFF, BMP, ANEU, ABSGEL, PBNP ####[address] [address] Sodium [Moles/Vol] 132 mmol/L Low 136-145 [facility] ([place] Comment on above: Performed By: #### H FP, PHOS, MG, ABOGEL, CBC, GFR, ADIFF, BMP, ANEU, ABSGEL, PBNP ####[place] [address] Urea nitrogen [Mass/Vol] 13.0 mg/dL Normal 8.0-22.0 [facility] ([place] Comment on above: Performed By: #### H FP, PHOS, MG, ABOGEL, CBC, GFR, ADIFF, BMP, ANEU, ABSGEL, PBNP ####[address] [address] CBCon 04-11-2023 Erythrocyte distribution width (RBC) [Ratio] 15.9 % High 11.5-15.5 [facility] ([place] Comment on above: Performed By: #### H FP, ADIFF, LIPID, PHOS, TSH, CBC, A1C, GFR, TROPHS, MG, ANEU, BMP ####[place] [address] Hematocrit (Bld) [Volume fraction] 40.1 % Normal 34.0-46.0 [facility] ([place] Comment on above: Performed By: #### H FP, ADIFF, LIPID, PHOS, TSH, CBC, A1C, GFR, TROPHS, MG, ANEU, BMP ####[place] [address] Hgb 13.6 G/dL Normal 12.0-16.0 [facility] ([place] Comment on above: Performed By: #### H FP, ADIFF, LIPID, PHOS, TSH, CBC, A1C, GFR, TROPHS, MG, ANEU, BMP ####[address] [address] MCH (RBC) [Entitic mass] 28.2 pg Normal 27.0-33.0 [facility] ([place] Comment on above: Performed By: #### H FP, ADIFF, LIPID, PHOS, TSH, CBC, A1C, GFR, TROPHS, MG, ANEU, BMP ####[place] [address] MCHC 33.8 G/dL Normal 32.0-36.0 [facility] ([place] Comment on above: Performed By: #### H FP, ADIFF, LIPID, PHOS, TSH, CBC, A1C, GFR, TROPHS, MG, ANEU, BMP ####[place] [address] MCV (RBC) [Entitic vol] 83.4 fL Normal 80.0-99.0 [facility] ([place] Comment on above: Performed By: #### H FP, ADIFF, LIPID, PHOS, TSH, CBC, A1C, GFR, TROPHS, MG, ANEU, BMP ####[place] [address] Platelet 184 10 3/mcL Normal 150-450 [facility] ([place] Comment on above: Performed By: #### H FP, ADIFF, LIPID, PHOS, TSH, CBC, A1C, GFR, TROPHS, MG, ANEU, BMP ####[place] [address] Platelet mean volume (Bld) [Entitic vol] 9.3 fL Normal 6.6-10.5 [facility] ([place] Comment on above: Performed By: #### H FP, ADIFF, LIPID, PHOS, TSH, CBC, A1C, GFR, TROPHS, MG, ANEU, BMP ####[place] [address] RBC 4.81 10 6/mcL Normal 4.10-5.30 [facility] ([place] Comment on above: Performed By: #### H FP, ADIFF, LIPID, PHOS, TSH, CBC, A1C, GFR, TROPHS, MG, ANEU, BMP ####[place] [address] WBC 7.2 10 3/mcL Normal 4.5-10.8 [facility] ([place] Comment on above: Performed By: #### H FP, ADIFF, LIPID, PHOS, TSH, CBC, A1C, GFR, TROPHS, MG, ANEU, BMP ####[place] [address] HFPon 04-11-2023 Bili Indirect 0.6 mg/dL Normal 0.1-10.0 [facility] ([place] Comment on above: Performed By: #### H FP, ADIFF, LIPID, PHOS, TSH, CBC, A1C, GFR, TROPHS, MG, ANEU, BMP ####[address] [address] Albumin Level 2.9 G/dL Low 3.2-4.8 [facility] ([place] Comment on above: Performed By: #### H FP, ADIFF, LIPID, PHOS, TSH, CBC, A1C, GFR, TROPHS, MG, ANEU, BMP ####[address] [address] Albumin/Globulin [Mass ratio] 0.7 {ratio} Low 0.9-1.6 [facility] ([place] Comment on above: Performed By: #### H FP, ADIFF, LIPID, PHOS, TSH, CBC, A1C, GFR, TROPHS, MG, ANEU, BMP ####[address] [address] ALP [Catalytic activity/Vol] 76 U/L Normal 38-126 [facility] ([place] Comment on above: Performed By: #### H FP, ADIFF, LIPID, PHOS, TSH, CBC, A1C, GFR, TROPHS, MG, ANEU, BMP ####[address] [address] ALT [Catalytic activity/Vol] 24 U/L Normal 10-49 [facility] ([place] Comment on above: Performed By: #### H FP, ADIFF, LIPID, PHOS, TSH, CBC, A1C, GFR, TROPHS, MG, ANEU, BMP ####[address] [address] AST [Catalytic activity/Vol] 35 U/L High 8-34 [facility] ([place] Comment on above: Performed By: #### H FP, ADIFF, LIPID, PHOS, TSH, CBC, A1C, GFR, TROPHS, MG, ANEU, BMP ####[address] [address] Bili Direct 0.5 mg/dL High 0.0-0.4 [facility] ([place] Comment on above: Result Comment: Use of this assay is not recommended for patients undergoing treatment with eltrombopag due to the potential for falsely elevated results. Performed By: #### H FP, ADIFF, LIPID, PHOS, TSH, CBC, A1C, GFR, TROPHS, MG, ANEU, BMP ####[address] [address] Bili Total 1.10 mg/dL Normal 0.20-1.20 [facility] ([place] Comment on above: Result Comment: Use of this assay is not recommended for patients undergoing treatment with eltrombopag due to the potential for falsely elevated results. Performed By: #### H FP, ADIFF, LIPID, PHOS, TSH, CBC, A1C, GFR, TROPHS, MG, ANEU, BMP ####[address] [address] Globulin 3.9 G/dL High 1.5-3.8 [facility] ([place] Comment on above: Performed By: #### H FP, ADIFF, LIPID, PHOS, TSH, CBC, A1C, GFR, TROPHS, MG, ANEU, BMP ####[place] [address] Total Protein 6.8 G/dL Normal 5.7-8.2 [facility] ([place] Comment on above: Result Comment: No te - New Reference Range in effect 19 Performed By: #### H FP, ADIFF, LIPID, PHOS, TSH, CBC, A1C, GFR, TROPHS, MG, ANEU, BMP ####[address] [address] Bili Indirect 0.6 mg/dL Normal 0.1-10.0 [facility] ([place] Comment on above: Performed By: #### H FP, PHOS, MG, ABOGEL, CBC, GFR, ADIFF, BMP, ANEU, ABSGEL, PBNP ####[address] [address] Albumin Level 3.2 G/dL Normal 3.2-4.8 [facility] ([place] Comment on above: Performed By: #### H FP, PHOS, MG, ABOGEL, CBC, GFR, ADIFF, BMP, ANEU, ABSGEL, PBNP ####[place] [id number] Albumin/Globulin [Mass ratio] 0.8 {ratio} Low 0.9-1.6 [facility] ([place] Comment on above: Performed By: #### H FP, PHOS, MG, ABOGEL, CBC, GFR, ADIFF, BMP, ANEU, ABSGEL, PBNP ####[address] [address] ALP [Catalytic activity/Vol] 80 U/L Normal 38-126 [facility] ([place] Comment on above: Performed By: #### H FP, PHOS, MG, ABOGEL, CBC, GFR, ADIFF, BMP, ANEU, ABSGEL, PBNP ####[place] [address] ALT [Catalytic activity/Vol] 25 U/L Normal 10-49 [facility] ([place] Comment on above: Performed By: #### H FP, PHOS, MG, ABOGEL, CBC, GFR, ADIFF, BMP, ANEU, ABSGEL, PBNP ####[place] [address] AST [Catalytic activity/Vol] 31 U/L Normal 8-34 [facility] ([place] Comment on above: Performed By: #### H FP, PHOS, MG, ABOGEL, CBC, GFR, ADIFF, BMP, ANEU, ABSGEL, PBNP ####[place] [id number] Bili Direct 0.4 mg/dL Normal 0.0-0.4 [facility] ([place] Comment on above: Result Comment: Use of this assay is not recommended for patients undergoing treatment with eltrombopag due to the potential for falsely elevated results. Performed By: #### H FP, PHOS, MG, ABOGEL, CBC, GFR, ADIFF, BMP, ANEU, ABSGEL, PBNP ####[place] [address] Bili Total 1.00 mg/dL Normal 0.20-1.20 [facility] ([place] Comment on above: Result Comment: Use of this assay is not recommended for patients undergoing treatment with eltrombopag due to the potential for falsely elevated results. Performed By: #### H FP, PHOS, MG, ABOGEL, CBC, GFR, ADIFF, BMP, ANEU, ABSGEL, PBNP ####[place] [id number] [address] [place] [address] Globulin 4.1 G/dL High 1.5-3.8 [facility] ([place] Comment on above: Performed By: #### H FP, PHOS, MG, ABOGEL, CBC, GFR, ADIFF, BMP, ANEU, ABSGEL, PBNP ####[address] [address] Total Protein 7.3 G/dL Normal 5.7-8.2 [facility] ([place] Comment on above: Result Comment: No te - New Reference Range in effect 19 Performed By: #### H FP, PHOS, MG, ABOGEL, CBC, GFR, ADIFF, BMP, ANEU, ABSGEL, PBNP ####[address] [address] LABORATORYOrdered By: Brigitte Miranda on 04-11-2023 Cholesterol [Mass/Vol] 183 mg/dL Normal 50 - 199 mg/dL [facility] Comment on above: Interpretive Data: C holesterol Reference Interval: Less than 200 Desirable 200-239 Borderline high risk 240 and above High risk Cholesterol in HDL [Mass/Vol] 39 mg/dL Low 40 - 59 mg/dL AD[facility] SS Cholesterol in LDL [Mass/Vol] 128 mg/dL Normal 0 - 129 mg/dL [facility] SS Triglyceride [Mass/Vol] 82 mg/dL Normal 3 - 149 mg/dL [facility] SS LABORATORYOrdered By: SYSTEM SYSTEM on 04-11-2023 HbA1c (Bld) [Mass fraction] 9.9 % High 4.0 - 6.0 % Auto Chem SS Troponin I.cardiac DL <= 0.01 ng/mL [Mass/Vol] 4390.44 ng/L High 0.00 - 34.00 ng/L ADM SS TSH Qn 3.094 mIU/mL Normal 0.550 - 4.780 mIU/mL AH [facility] SS Comment on above: Interpretive Data: * *Note - New Reference Range in effect 19 LIPIDon 04-11-2023 Cholesterol [Mass/Vol] 183 mg/dL Normal 50-199 [facility] ([place] Comment on above: Result Comment: Chol esterol Reference Interval:Less than 200 [id number] Borderline high [id number] and above High risk Performed By: #### H FP, ADIFF, LIPID, PHOS, TSH, CBC, A1C, GFR, TROPHS, MG, ANEU, BMP ####[address] [address] Cholesterol in HDL [Mass/Vol] 39 mg/dL Low 40-59 [facility] ([place]) Comment on above: Performed By: #### H FP, ADIFF, LIPID, PHOS, TSH, CBC, A1C, GFR, TROPHS, MG, ANEU, BMP ####[address] [address] Cholesterol in LDL [Mass/Vol] 128 mg/dL Normal 0-129 [facility] ([place]) Comment on above: Performed By: #### H FP, ADIFF, LIPID, PHOS, TSH, CBC, A1C, GFR, TROPHS, MG, ANEU, BMP ####[address] [address] Triglyceride [Mass/Vol] 82 mg/dL Normal 3-149 [facility] ([place]) Comment on above: Performed By: #### H FP, ADIFF, LIPID, PHOS, TSH, CBC, A1C, GFR, TROPHS, MG, ANEU, BMP ####[address] [address] MGon 04-11-2023 Magnesium [Mass/Vol] 2.1 mg/dL Normal 1.6-2.4 [facility] ([place]) Comment on above: Performed By: #### H FP, ADIFF, LIPID, PHOS, TSH, CBC, A1C, GFR, TROPHS, MG, ANEU, BMP ####[address] [address] Magnesium [Mass/Vol] 2.1 mg/dL Normal 1.6-2.4 [facility] ([place]) Comment on above: Performed By: #### H FP, PHOS, MG, ABOGEL, CBC, GFR, ADIFF, BMP, ANEU, ABSGEL, PBNP ####[address] [address] PBNPon 04-11-2023 Natriuretic peptide B (Bld) [Mass/Vol] 5314 pg/mL High 0-900 [facility] ([place]) Comment on above: Result Comment: NT-p roBNP results of less than 300 pg/mL effectivelyrules out acute congestive heart failure with 99% negative predictive value. Performed By: #### H FP, PHOS, MG, ABOGEL, CBC, GFR, ADIFF, BMP, ANEU, ABSGEL, PBNP ####[place] [address] PHOSon 04-11-2023 Phosphate [Mass/Vol] 3.5 mg/dL Normal 2.4-5.1 [facility] ([place]) Comment on above: Result Comment: No te - New Reference Range in effect 19 Performed By: #### H FP, ADIFF, LIPID, PHOS, TSH, CBC, A1C, GFR, TROPHS, MG, ANEU, BMP ####[place] [address] Phosphate [Mass/Vol] 3.4 mg/dL Normal 2.4-5.1 [facility] ([place]) Comment on above: Result Comment: No te - New Reference Range in effect 19 Performed By: #### H FP, PHOS, MG, ABOGEL, CBC, GFR, ADIFF, BMP, ANEU, ABSGEL, PBNP ####[place] [address] PROon 04-11-2023 INR Coag (PPP) [Relative time] 1.3 {INR} Normal [facility] ([place]) Comment on above: Result Comment: [employer] (CHEST, 1992, [id number])recommended therapeutic range for oral anticoagulant therapy is:LOW RISK: Prophylaxis of venous thrombosis INR: 2.0-3.0 Treatment of pulmonary embolism 2.0-3.0 Prevention of systemic embolism 2.0-3.0HIGH RISK: Mechanical prosthetic valves 2.5-3.5 Performed By: #### T RIGOBERTO PRO ####[place] [address] PT Coag (PPP) [Time] 14.4 s High 9.0-14.2 [facility] ([place]) Comment on above: Result Comment: Effe ctive 10/03/07, Protime results may be affected by some antibiotics (i.e. Ciprofloxacin, Azithromycin, Bactrim) which may potentiate the action of oral anticoagulants, with further increases in Protime/INR. Performed By: #### T RIGOBERTO PRO ####[place] [address] TROPHSon 04-11-2023 Troponin I High Sensitivity 4390.44 ng/L High 0.00-34.00 [facility] ([place]) Comment on above: Performed By: #### H FP, ADIFF, LIPID, PHOS, TSH, CBC, A1C, GFR, TROPHS, MG, ANEU, BMP ####[place] [address] Troponin I High Sensitivity 3734.13 ng/L High 0.00-34.00 [facility] ([place]) Comment on above: Performed By: #### Salvador FRANKLIN ####[place] [address] Troponin I High Sensitivity 2371.13 ng/L High 0.00-34.00 [facility] ([place] Comment on above: Performed By: #### Salvador FRANKLIN PRO ####[place] [address] TSHon 04-11-2023 TSH 3.094 mIU/mL Normal 0.550-4.780 [facility] ([place] Comment on above: Result Comment: No te - New Reference Range in effect 19 Performed By: #### H FP, ADIFF, LIPID, PHOS, TSH, CBC, A1C, GFR, TROPHS, MG, ANEU, BMP ####[place] [address] UAon 04-11-2023 Color (U) Yellow Normal [facility] ([place] Comment on above: Performed By: #### U A, UAMIC ####[place] [address] Glucose (U) [Mass/Vol] 100 mg/dL Abnormal Negative [facility] ([place] Comment on above: Performed By: #### U A, UAMIC ####[place] [address] Ketones Ql (U) Negative Normal Neg-Trace [facility] ([place] Comment on above: Performed By: #### U A, UAMIC ####[place] [address] UA Appear Clear Normal Clear [facility] ([place] Comment on above: Performed By: #### U A, UAMIC ####[place] [address] UA Blood Small Abnormal Neg-Trace [facility] ([place] Comment on above: Performed By: #### U A, UAMIC ####[place] [address] UA Leuk Est Negative Normal Negative [facility] ([place] Comment on above: Performed By: #### U A, UAMIC ####[place] [address] UA Nitrite Negative Normal Negative [facility] ([place] Comment on above: Performed By: #### U A, UAMIC ####[place] [address] UA pH 5.0 Normal 5.0 - 8.0 [facility] ([place] Comment on above: Performed By: #### U A, UAMIC ####[place] [address] UA Protein 300 mg/dL Abnormal Negative [facility] ([place] Comment on above: Performed By: #### U A, UAMIC ####[place] [address] UA Spec Grav 1.025 Normal 1.006-1.029 [facility] ([place] Comment on above: Performed By: #### U A, UAMIC ####[place] [address] UA Specimen Type Clean Catch Normal [facility] ([place] Comment on above: Performed By: #### U A, UAMIC ####[place] [address] UA Urobilinogen 0.2 E.U./dL Normal 0.2-1.0 [facility] ([place] Comment on above: Performed By: #### U A, UAMIC ####[place] [address] Urobilinogen (U) [Mass/Vol] Negative Normal Neg-Trace [facility] ([place] Comment on above: Performed By: #### U A, UAMIC ####[place] [address] UAMICon 04-11-2023 UA Bacteria Negative Normal Negative [facility] ([place] Comment on above: Performed By: #### U A, UAMIC ####[place] [address] UA Mucous Trace Normal [facility] ([place] Comment on above: Performed By: #### U A, UAMIC ####[place] [address] UA RBC Negative Normal 0-2 [facility] ([place] Comment on above: Performed By: #### U A, UAMIC ####[place] [address] UA Squam Epithelial Rare Normal 0-20 [facility] ([place] Comment on above: Performed By: #### U A, UAMIC ####[place] [address] UA WBC Negative Normal 0-5 [facility] ([place] Comment on above: Performed By: #### U A, UAMIC ####[place] [address] XR CHEST 1 VIEWon 04-11-2023 XR CHEST 1 VIEW Normal [facility] ([place]) .Auto Diffon 04-10-2023 Basophil, Absolute 0.1 10 3/mcL Normal 0.0-0.3 [facility] ([place]) Comment on above: Performed By: #### H FP, PHOS, MG, ABOGEL, CBC, GFR, ADIFF, BMP, ANEU, ABSGEL, PBNP ####[address] [address] Basophils/100 WBC (Bld) 1.4 % Normal 0.0-2.5 [facility] ([place]) Comment on above: Performed By: #### H FP, PHOS, MG, ABOGEL, CBC, GFR, ADIFF, BMP, ANEU, ABSGEL, PBNP ####[address] [address] Eosinophil, Absolute 0.1 10 3/mcL Normal 0.0-0.7 [facility] ([place]) Comment on above: Performed By: #### H FP, PHOS, MG, ABOGEL, CBC, GFR, ADIFF, BMP, ANEU, ABSGEL, PBNP ####[address] [address] Eosinophils/100 WBC (Bld) 2.9 % Normal 0.0-6.0 [facility] ([place]) Comment on above: Performed By: #### H FP, PHOS, MG, ABOGEL, CBC, GFR, ADIFF, BMP, ANEU, ABSGEL, PBNP ####[address] [address] Lymphocyte, Absolute 1.2 10 3/mcL Normal 0.9-4.3 [facility] ([place]) Comment on above: Performed By: #### H FP, PHOS, MG, ABOGEL, CBC, GFR, ADIFF, BMP, ANEU, ABSGEL, PBNP ####[address] [address] Lymphocytes/100 WBC (Bld) 22.7 % Normal 20.0-40.0 [facility] ([place] Comment on above: Performed By: #### H FP, PHOS, MG, ABOGEL, CBC, GFR, ADIFF, BMP, ANEU, ABSGEL, PBNP ####[address] [address] Monocyte, Absolute 0.4 10 3/mcL Normal 0.1-1.4 [facility] ([place]) Comment on above: Performed By: #### H FP, PHOS, MG, ABOGEL, CBC, GFR, ADIFF, BMP, ANEU, ABSGEL, PBNP ####[place] [address] Monocytes/100 WBC (Bld) 8.1 % Normal 2.0-13.0 [facility] ([place] Comment on above: Performed By: #### H FP, PHOS, MG, ABOGEL, CBC, GFR, ADIFF, BMP, ANEU, ABSGEL, PBNP ####[place] [address] Neutrophils/100 WBC (Bld) 64.9 % Normal 50.0-75.0 [facility] ([place]) Comment on above: Performed By: #### H FP, PHOS, MG, ABOGEL, CBC, GFR, ADIFF, BMP, ANEU, ABSGEL, PBNP ####[place] [address] .NEUABSon 04-10-2023 Neutrophil, Absolute 3.4 10 3/mcL Normal 2.3-8.1 [facility] ([place] Comment on above: Performed By: #### H FP, PHOS, MG, ABOGEL, CBC, GFR, ADIFF, BMP, ANEU, ABSGEL, PBNP ####[place] [address] CBCon 04-10-2023 Erythrocyte distribution width (RBC) [Ratio] 15.9 % High 11.5-15.5 [facility] ([place]) Comment on above: Performed By: #### H FP, PHOS, MG, ABOGEL, CBC, GFR, ADIFF, BMP, ANEU, ABSGEL, PBNP ####[place] [address] Hematocrit (Bld) [Volume fraction] 40.7 % Normal 34.0-46.0 [facility] ([place] Comment on above: Performed By: #### H FP, PHOS, MG, ABOGEL, CBC, GFR, ADIFF, BMP, ANEU, ABSGEL, PBNP ####[place] [address] Hgb 13.5 G/dL Normal 12.0-16.0 [facility] ([place]) Comment on above: Performed By: #### H FP, PHOS, MG, ABOGEL, CBC, GFR, ADIFF, BMP, ANEU, ABSGEL, PBNP ####[place] [address] MCH (RBC) [Entitic mass] 28.0 pg Normal 27.0-33.0 [facility] ([place]) Comment on above: Performed By: #### H FP, PHOS, MG, ABOGEL, CBC, GFR, ADIFF, BMP, ANEU, ABSGEL, PBNP ####[place] [address] MCHC 33.3 G/dL Normal 32.0-36.0 [facility] ([place] Comment on above: Performed By: #### H FP, PHOS, MG, ABOGEL, CBC, GFR, ADIFF, BMP, ANEU, ABSGEL, PBNP ####[place] [address] MCV (RBC) [Entitic vol] 84.2 fL Normal 80.0-99.0 [facility] ([place] Comment on above: Performed By: #### H FP, PHOS, MG, ABOGEL, CBC, GFR, ADIFF, BMP, ANEU, ABSGEL, PBNP ####[place] [address] Platelet 183 10 3/mcL Normal 150-450 [facility] ([place]) Comment on above: Performed By: #### H FP, PHOS, MG, ABOGEL, CBC, GFR, ADIFF, BMP, ANEU, ABSGEL, PBNP ####[place] [id number] Platelet mean volume (Bld) [Entitic vol] 9.4 fL Normal 6.6-10.5 [facility] ([place]) Comment on above: Performed By: #### H FP, PHOS, MG, ABOGEL, CBC, GFR, ADIFF, BMP, ANEU, ABSGEL, PBNP ####[place] [id number] [place] [address] RBC 4.83 10 6/mcL Normal 4.10-5.30 [facility] ([place]) Comment on above: Performed By: #### H FP, PHOS, MG, ABOGEL, CBC, GFR, ADIFF, BMP, ANEU, ABSGEL, PBNP ####[place] [id number] [address] [place] [address] WBC 5.2 10 3/mcL Normal 4.5-10.8 [facility] ([place]) Comment on above: Performed By: #### H FP, PHOS, MG, ABOGEL, CBC, GFR, ADIFF, BMP, ANEU, ABSGEL, PBNP ####[place] [address] LABORATORYOrdered By: Moove In SYSTEM on 04-10-2023 Troponin I.cardiac DL <= 0.01 ng/mL [Mass/Vol] 3734.13 ng/L High 0.00 - 34.00 ng/L AH ADM SS Troponin I.cardiac DL <= 0.01 ng/mL [Mass/Vol] 2371.13 ng/L High 0.00 - 34.00 ng/L AH ADM SS LABORATORYOrdered By: Sapna Hernandez on 04-10-2023 Appearance (U) Clear (04/10/23 11:46 PM) Normal Clear Auto Urine SS Bacteria LM.HPF (Urine sed) [#/Area] Negative (04/10/23 11:46 PM) Normal Negative AH Auto Urine SS Bilirubin Ql (U) Negative (04/10/23 11:46 PM) Normal Neg-Trace AH Auto Urine SS Color (U) Yellow (04/10/23 11:46 PM) Normal AH Auto Urine SS Glucose Test strip (U) [Mass/Vol] 100 mg/dL Invalid Interpretation Code Negative AH Auto Urine SS Hemoglobin Auto test strip (U) [Mass/Vol] Small *ABN* (04/10/23 11:46 PM) Invalid Interpretation Code Neg-Trace AH Auto Urine SS Ketones Ql (U) Negative Normal Neg-Trace AH Auto Ur ine SS UA Leuk Est Negative (04/10/23 11:46 PM) Normal Negative AH Auto Urine SS UA Mucous Trace /HPF Normal AH Auto Urine SS UA Nitrite Negative (04/10/23 11:46 PM) Normal Negative AH Auto Urine SS UA pH 5.0 (04/10/23 11:46 PM) Normal 5.0 - 8.0 AH Auto Urine SS UA Protein 300 mg/dL Invalid Interpretation Code Negative AH Auto Urine SS UA RBC Negative Normal 0-2 AH Auto Urine SS UA Spec Grav 1.025 (04/10/23 11:46 PM) Normal 1.006-1.029 AH Auto Urine SS UA Specimen Type Clean Catch (04/10/23 11:46 PM) Normal AH Auto Urine SS UA Squam Epithelial Rare /HPF Normal 0-20 AH Au to Urine SS UA Urobilinogen 0.2 E.U./dL Normal 0.2-1.0 AH Auto Urine SS WBC LM.HPF (Urine sed) [#/Area] Negative Normal 0-5 AH Auto Urine SS PT Coag (PPP) [Time] 14.4 s High 9.0 - 1 4.2 seconds [facility] SS Comment on above: Interpretive Data: E ffective 10/03/07, Protime results may be affected by some antibiotics (i.e. Ciprofloxacin, Azithromycin, Bactrim) which may potentiate the action of oral anticoagulants, with further increases in Protime/INR. PT International Ratio 1.3 ratio Invalid Interpretation Code [facility] SS Comment on above: Interpretive Data: Salvador ochoa [employer] (CHEST, 1992, [id number]) recommended therapeutic range for oral anticoagulant therapy is: LOW RISK: Prophylaxis of venous thrombosis INR: 2.0-3.0 Treatment of pulmonary embolism 2.0-3.0 Prevention of systemic embolism 2.0-3.0 HIGH RISK: Mechanical prosthetic valves 2.5-3.5 LABORATORYOrdered By: America Kowalski on 04-10-2023 ABO and Rh group Nom (Bld) Blood group B Rh(D) positive Invalid Interpretation Code AH BB Auto SS Blood group antibody screen Ql Negative ABSC (04/10/23 9:29 PM) Normal AH BB Auto SS LABORATORYOrdered By: Brigitte Miranda on 04-10-2023 Natriuretic peptide.B prohormone N-Terminal [Mass/Vol] 5314 pg/mL High 0 - 900 pg/mL Auto Chem SS Comment on above: Interpretive Data: N T-proBNP results of less than 300 pg/mL effectively rules out acute congestive heart failure with 99% negative predictive value. CBC WITH AUTO DIFFERENTIALon 03-29-2023 Basophils (Bld) [#/Vol] 0.0 10*3/uL Normal 0.0-0.[address] [facility] Comment on above: Performed By: #### L [id number] #### Oil Dispatcher: ROBBIE RAWLS ([phone]) [facility] ([facility]) [address] Basophils/100 WBC (Bld) 0.2 % Normal 0.0-2.[address] [facility] Comment on above: Performed By: #### L [id number] #### Oil Dispatcher: ROBBIE RAWLS ([id number]) [facility] ([facility]) [address] Eosinophils (Bld) [#/Vol] 0.2 10*3/uL Normal 0.0-0.[address] [facility] Comment on above: Performed By: #### L [id number] #### Oil Dispatcher: ROBBIE RAWLS ([id number]) [facility] ([facility]) [address] Eosinophils/100 WBC (Bld) 3.7 % Normal 1.0-6.[address] [facility] Comment on above: Performed By: #### L [id number] #### Oil Dispatcher: ROBBIE RAWLS ([id number]) [facility] ([facility]) [address] [place] [address] Erythrocyte distribution width (RBC) [Ratio] 16.0 % High 11.5-14.[address] [facility] Comment on above: Performed By: #### L [id number] #### Oil Dispatcher: ROBBIE RAWLS ([phone]) [facility] ([facility]) [address] ERYTHROCYTE MEAN CORPUSCULAR HEMOGLOBIN CONCENTRATION (G/DL) BY AUTOMATED 32.8 % Normal 32.0-36.[address] [facility] Comment on above: Performed By: #### L [id number] #### Oil Dispatcher: ROBBIE GONZALEZSilviaHARSHA ([phone]) [facility] ([facility]) [address] Hematocrit (Bld) [Volume fraction] 42.0 % Normal 35.0-47.[address] [facility] Comment on above: Performed By: #### L [id number] #### Oil Dispatcher: ROBBIE SINAI ([id number]) [facility] [address] Hemoglobin (Bld) [Mass/Vol] 13.8 g/dL Normal 11.7-16.[address] [facility] Comment on above: Performed By: #### L [id number] #### Oil Dispatcher: ROBBIE SINAI ([id number]) [facility] ([facility]) [address] [place] [address] Lymphocytes (Bld) [#/Vol] 1.4 10*3/uL Normal 1.0-4.[address] [facility] Comment on above: Performed By: #### L [id number] #### Oil Dispatcher: ROBBIE SINAI ([id number]) [facility] ([facility]) [address] [place] [address] Lymphocytes/100 WBC (Bld) 29.1 % Normal 20.0-40.0 [facility] Comment on above: Performed By: #### L [id number] #### Oil Dispatcher: ROBBIE BENDERHARSHA ([phone]) [facility] [address] MCH (RBC) [Entitic mass] 27.2 pg Normal 26.0-34.0 [facility] Comment on above: Performed By: #### L [id number] #### Oil Dispatcher: ROBBIE BENDERHARSHA ([id number]) [facility] ([facility]) [address] MCV (RBC) [Entitic vol] 83.0 fL Normal 80.0-98.0 [facility] Comment on above: Performed By: #### L [id number] #### Oil Dispatcher: ROBBIE GONZALEZSilviaHARSHA ([phone]) [facility] ([facility]) [address] [place] [address] [place] Monocytes (Bld) [#/Vol] 0.5 10*3/uL Normal 0.0-0.[address] [facility] Comment on above: Performed By: #### L [id number] #### Oil Dispatcher: ROBBIE SINAI ([id number]) [facility] ([facility]) [address] Monocytes/100 WBC (Bld) 9.4 % Normal 2.0-10.[address] [facility] Comment on above: Performed By: #### L [id number] #### Oil Dispatcher: ROBBIE GONZALEZMEKHI ([id number]) [facility] ([facility]) [address] Neutrophils (Bld) [#/Vol] 2.9 10*3/uL Normal 1.8-7.[address] [facility] Comment on above: Performed By: #### L [id number] #### Oil Dispatcher: ROBBIE BENDERHARSHA ([phone]) [facility] [place] ([facility] [address] Neutrophils/100 WBC (Bld) 57.6 % Normal 40.0-80.[address] [facility] Comment on above: Performed By: #### L [id number] #### Oil Dispatcher: ROBBIE BENDERHARSHA ([id number]) [facility] [place] ([facility]) [address] [place] [address] [place] NRBC (PER 100 WBCS) BY AUTOMATED COUNT 0.0 /100 WBCs Normal 0.0-2.[address] [facility] Comment on above: Performed By: #### L [id number] #### Oil Dispatcher: ROBBIE BENDERHARSHA ([id number]) [facility] ([facility]) [address] Platelet mean volume (Bld) [Entitic vol] 9.8 fL Normal 7.4-12.4 [facility] Comment on above: Performed By: #### L [id number] #### Oil Dispatcher: ROBBIE RAWLS ([id number]) [facility] ([facility]) [address] Platelets (Bld) [#/Vol] 191 10*3/uL Normal 140-440 [facility] Comment on above: Performed By: #### L [id number] #### Oil Dispatcher: ROBBIE RAWLS ([phone]) [facility] ([facility] [address] RBC (Bld) [#/Vol] 5.06 10*6/uL Normal 3.8-5.20 [facility] Comment on above: Performed By: #### L [id number] #### Oil Dispatcher: ROBBIE RAWLS ([id number]) [facility] ([facility] [address] WBC (Bld) [#/Vol] 5.0 10*3/uL Normal 3.6-10.7 [facility] Comment on above: Performed By: #### L [id number] #### Oil Dispatcher: ROBBIE RAWLS ([id number]) [facility] ([facility]) [address] COMPLETE URINALYSISon 2023 BACTERIA (#/HPF) IN URINE Few Abnormal Negative [facility] Comment on above: Performed By: #### L [id number] #### Oil Dispatcher: ROBBIE RAWLS ([id number]) [facility] ([facility] [address] BILIRUBIN, TOTAL PRESENCE IN URINE Negative Normal Negative [facility] Comment on above: Performed By: #### L [id number] #### Oil Dispatcher: ROBBIE RAWLS ([phone]) [facility] [address] Clarity (U) Clear Normal Clear [facility] Comment on above: Performed By: #### L [id number] #### Oil Dispatcher: ROBBIE RAWLS ([id number]) [facility] ([facility]) [address] Color (U) Yellow Normal Lt. Yellow [facility] Comment on above: Performed By: #### L [id number] #### Oil Dispatcher: ROBBIE RAWLS ([phone]) [facility] [address] Glucose (U) [Mass/Vol] 200 mg/dL Abnormal Normal (<70) [facility] Comment on above: Performed By: #### L [id number] #### Oil Dispatcher: ROBBIE RAWLS ([id number]) [facility] ([facility]) [address] HEMOGLOBIN PRESENCE IN URINE 0.1 mg/dL Abnormal Negative [facility] Comment on above: Performed By: #### L [id number] #### Oil Dispatcher: ROBBIE RAWLS ([phone]) [facility] ([facility]) [address] [place] [address] [place] HYALINE CASTS (#/LPF) IN URINE SEDIMENT BY MICROSCOPY 3-5 Abnormal Negative [facility] Comment on above: Performed By: #### L [id number] #### Oil Dispatcher: ROBBIE RAWLS ([id number]) [facility] [address] Ketones Ql (U) Negative Normal Negative [facility] Comment on above: Performed By: #### L [id number] #### Oil Dispatcher: ROBBIE RAWLS ([phone]) [facility] [address] LEUKOCYTE ESTERASE PRESENCE IN URINE BY TEST STRIP 25 Ganesh/uL Abnormal Negative [facility] Comment on above: Performed By: #### L [id number] #### Oil Dispatcher: ROBBIE RAWLS ([phone]) [facility] [address] [place] [address] [place] MUCUS (#/LPF) IN URINE SEDIMENT Few Normal Negative [facility] Comment on above: Performed By: #### L [id number] #### Oil Dispatcher: ROBBIE RAWLS ([id number]) [facility] [address] NITRITE PRESENCE IN URINE Negative Normal Negative [facility] Comment on above: Performed By: #### L [id number] #### Oil Dispatcher: ROBBIE RAWLS ([id number]) [facility] [address] pH (U) 6.0 [pH] Normal 5.0-8.0 [facility] Comment on above: Performed By: #### L [id number] #### Oil Dispatcher: ROBBIE RAWLS ([id number]) [facility] ([facility]) [address] Protein (U) [Mass/Vol] 300 mg/dL Abnormal Negative [facility] Comment on above: Performed By: #### L [id number] #### Oil Dispatcher: ROBBIE RAWLS ([id number]) [facility] ([facility]) [address] RBC (#/HPF) IN URINE SEDIMENT 11-25 Abnormal 0-2 [facility] Comment on above: Performed By: #### L [id number] #### Oil Dispatcher: ROBBIE RAWLS ([id number]) [facility] ([facility]) [address] Specific gravity (U) [Rel density] 1.021 Normal 1.005-1.030 [facility] Comment on above: Performed By: #### L [id number] #### Oil Dispatcher: ROBBIE RAWLS ([phone]) [facility] ([facility]) [address] SQUAMOUS EPITHELIAL CELLS (#/HPF) IN URINE SEDIMENT 3-5 Normal 3-5 [facility] Comment on above: Performed By: #### L [id number] #### Oil Dispatcher: ROBBIE RAWLS ([phone]) [facility] ([facility] [address] UROBILINOGEN (MG/DL) IN URINE Normal Normal Normal (0-1) [facility] Comment on above: Performed By: #### L [id number] #### Oil Dispatcher: ROBBIE RAWLS ([id number]) [facility] ([facility]) [address] WBC (LEUKOCYTE) (#/HPF) IN URINE SEDIMENT 11-25 Abnormal 0-5 [facility] Comment on above: Performed By: #### L [id number] #### Oil Dispatcher: ROBBIE RAWLS ([phone]) [facility] ([facility]) [address] YEAST (#/HPF) IN URINE Few Abnormal Negative [facility] Comment on above: Performed By: #### L [id number] #### Oil Dispatcher: ROBBIE RAWLS ([phone]) [facility] ([facility]) [address] COMPREHENSIVE METABOLIC PANE Adrian 03-29-2023 Albumin [Mass/Vol] 3.5 g/dL Normal 3.5-5.0 [facility] Comment on above: Performed By: #### L [id number], [id number], LAB17 #### Oil Dispatcher: ROBBIE RAWLS ([id number]) [facility] ([facility]) [address] ALP [Catalytic activity/Vol] 78 U/L Normal 38-126 [facility] Comment on above: Performed By: #### L [id number], LAB99, LAB17 #### Oil Dispatcher: ROBBIE RAWLS ([id number]) [facility] ([facility]) [address] ALT [Catalytic activity/Vol] 17 U/L Normal 0-34 [facility] Comment on above: Performed By: #### L [id number], LAB99, LAB17 #### Oil Dispatcher: ROBBIE RAWLS ([id number]) [facility] ([facility]) [address] Anion gap [Moles/Vol] 8 mmol/L Normal 3-[address] [facility] Comment on above: Performed By: #### L [id number], LAB99, LAB17 #### Oil Dispatcher: ROBBIE RAWLS ([id number]) [facility] ([facility]) [address] AST [Catalytic activity/Vol] 28 U/L Normal 15-[address] [facility] Comment on above: Performed By: #### L [id number], LAB99, LAB17 #### Oil Dispatcher: ROBBIE RAWLS ([id number]) [facility] ([facility]) [address] Bilirubin [Mass/Vol] 0.6 mg/dL Normal 0.2-1.3 [facility] Comment on above: Performed By: #### L [id number], LAB99, LAB17 #### Oil Dispatcher: ROBBIE RAWLS ([id number]) [facility] [address] Calcium [Mass/Vol] 9.4 mg/dL Normal 8.4-10.[address] [facility] Comment on above: Performed By: #### L [id number], LAB99, LAB17 #### Oil Dispatcher: ROBBIE RAWLS ([id number]) [facility] ([facility]) [address] [place] [address] [place] Chloride [Moles/Vol] 102 mmol/L Normal 98-107 [facility] Comment on above: Performed By: #### L [id number], LAB99, LAB17 #### Oil Dispatcher: ROBBIE RAWLS ([id number]) [facility] ([facility]) [address] [place] [address] [place] CO2 [Moles/Vol] 26 mmol/L Normal 22-30 [facility] Comment on above: Performed By: #### Adriana [id number], LAB99, LAB17 #### Oil Dispatcher: ROBBIE RAWLS ([id number]) [facility] ([facility]) [address] Creatinine [Mass/Vol] 1.25 mg/dL High 0.52-1.[address] [facility] Comment on above: Performed By: #### Adriana [id number], LAB99, LAB17 #### Oil Dispatcher: ROBBIE RAWLS ([id number]) [facility] ([facility]) [address] [place] [address] [place] GLOMERULAR FILTRATION RATE ML/MIN/1.73 SQ M.PREDICTED 45.6 mL/min/1.73m*2 Low >60.[address] [facility] Comment on above: Result Comment: Calc ulation based on the Chronic Kidney Disease Epidemiology Collaboration (CKD-EPI) equation refit without adjustment for race Performed By: #### Adriana [id number], LAB99, LAB17 #### Oil Dispatcher: ROBBIE RAWLS ([id number]) [facility] ([facility]) [address] [place] [address] [place] Glucose [Mass/Vol] 256 mg/dL High 70-[address] [facility] Comment on above: Performed By: #### Adriana [id number], LAB99, LAB17 #### Oil Dispatcher: ROBBIE RAWLS ([id number]) [facility] ([facility]) [address] [place] [address] [place] Potassium [Moles/Vol] 4.5 mmol/L Normal 3.5-5.[address] [facility] Comment on above: Performed By: #### Adriana [id number], [id number], LAB17 #### Oil Dispatcher: ROBBIE RAWLS ([id number]) [facility] ([facility]) [address] [place] [address] [place] Protein [Mass/Vol] 7.5 g/dL Normal 6.3-8.[address] [facility] Comment on above: Performed By: #### Adriana [id number], LAB99, LAB17 #### Oil Dispatcher: ROBBIELOUIS RAWLS ([id number]) [facility] ([facility]) [address] Sodium [Moles/Vol] 136 mmol/L Normal 135-[address] [facility] Comment on above: Performed By: #### L [id number], LAB99, LAB17 #### Oil Dispatcher: ROBBIE RAWLS ([id number]) [facility] ([facility]) [address] Urea nitrogen [Mass/Vol] 18 mg/dL High 7-[address] [facility] Comment on above: Performed By: #### L [id number], LAB99, LAB17 #### Oil Dispatcher: ROBBIE RAWLS ([id number]) [facility] ([facility]) [address] ECG 12-LEADon 03-29-2023 ECG 12-LEAD IMPRESSION: Afib/flutter and ventricular-paced rhythm No further analysis attempted due to paced rhythm Electronically Signed On 03-29-2023 04:25:08 EST by Tova Nuñez [facility] ED Nursing Noteon 03-29-2023 ED Nursing Note Pt brought in by DENISSE from a friends home. EMS reports pt woke up with nausea and vomiting, more dry heaves than vomting. Vitals with EMS 168/92, heart rates 70's, 98%, respirations 18, blood sugar 290. Per EMS pt has a demand pacer. John Paul Hicks RN 03/29/23 0352 John Paul Hicks RN 03/29/23 0353 [facility] ED Provider Noteon ED Provider Note Emergency Department Encounter Location: [facility] ED Patient: John Paul Rodriguez : 1950 Date of evaluation: 03/29/2023 ED Provider: Jessie Hawkins DO Time received sign-out: 7AM John Paul Rodriguez was checked out to me by Dr. Marley. Please see his/her initial documentation for details of the patient's initial ED presentation, physical exam and completed studies. In brief, John Paul Rodriguez is a 72 y.o. adult that presented to the emergency department for nausea and vomiting that woke her up from sleep. . I have reviewed and interpreted all of the currently available lab results and diagnostics from this visit: Results for orders placed or performed during the hospital encounter of 03/29/23 CBC auto differential Result Value Ref Range Auto WBC 5.0 3.6 - 10.7 10*3/uL RBC 5.06 3.8 - 5.20 10*6/uL Hemoglobin 13.8 11.7 - 16.0 g/dL Hematocrit 42.0 35.0 - 47.0 % MCV 83.0 80.0 - 98.0 fL MCH 27.2 26.0 - 34.0 pg MCHC 32.8 32.0 - 36.0 % RDW 16.0 (H) 11.5 - 14.5 % Platelets 191 140 - 440 10*3/uL MPV 9.8 7.4 - 12.4 fL nRBC 0.0 0.0 - 2.0 /100 WBCs Neutrophils Relative 57.6 40.0 - 80.0 % Lymphocytes Relative 29.1 20.0 - 40.0 % Monocytes Relative 9.4 2.0 - 10.0 % Eosinophils Relative 3.7 1.0 - 6.0 % Basophils Relative 0.2 0.0 - 2.0 % Neutrophils Absolute 2.9 1.8 - 7.0 10*3/uL Lymphocytes Absolute 1.4 1.0 - 4.3 10*3/uL Monocytes Absolute 0.5 0.0 - 0.8 10*3/uL Eosinophils Absolute 0.2 0.0 - 0.5 10*3/uL Basophils Absolute 0.0 0.0 - 0.2 10*3/uL Comprehensive metabolic panel Result Value Ref Range SODIUM 136 135 - 145 mmol/L POTASSIUM 4.5 3.5 - 5.1 mmol/L CHLORIDE 102 98 - 107 mmol/L CARBON DIOXIDE 26 22 - 30 mmol/L ANION GAP 8 3 - 13 mmol/L UREA NITROGEN 18 (H) 7 - 17 mg/dL CREATININE 1.25 (H) 0.52 - 1.04 mg/dL GLUCOSE 256 (H) 70 - 100 mg/dL CALCIUM 9.4 8.4 - 10.4 mg/dL AST (SGOT) 28 15 - 46 U/L ALT 17 0 - 34 U/L ALKALINE PHOSPHATASE 78 38 - 126 U/L ALBUMIN 3.5 3.5 - 5.0 g/dL BILIRUBIN, TOTAL 0.6 0.2 - 1.3 mg/dL TOTAL PROTEIN 7.5 6.3 - 8.2 g/dL eGFR 45.6 (L) >60.0 mL/min/1.73m*2 Lipase Result Value Ref Range LIPASE 87 23 - 300 U/L Troponin, with Serial Reflex Result Value Ref Range TROPONIN I 0.030 <0.034 ng/mL Complete Urinalysis Result Value Ref Range Color, Urine Yellow Lt. Yellow Clarity, Urine Clear Clear pH, Urine 6.0 5.0 - 8.0 pH Leukocytes, Urine 25 (A) Negative Ganesh/uL Nitrite, Urine Negative Negative Protein, Urine 300 (A) Negative mg/dL Glucose, Urine 200 (A) Normal (<70) mg/dL Bilirubin, Urine Negative Negative mg/dL Ketones, Urine Negative Negative mg/dL Urobilinogen, Urine Normal Normal (0-1) mg/dL Blood, Urine 0.1 (A) Negative mg/dL RBC, Urine 11-25 (A) 0 - 2 /HPF WBC, Urine 11-25 (A) 0 - 5 /HPF Squamous Epithelial, Urine 3-5 3 - 5 /HPF Bacteria, Urine Few (A) Negative /HPF Mucus, Urine Few Negative /LPF Yeast, Urine Few (A) Negative /HPF Hyaline Casts, Urine 3-5 (A) Negative /LPF SPECIFIC GRAVITY OF URINE (NUMERIC) 1.021 1.005 - 1.030 ECG 12 lead Result Value Ref Range Heart Rate 70 bpm QRSD Interval 146 ms QT Interval 455 ms QTC Interval 490 ms P Wolcott 0 degrees QRS Wolcott -68 degrees T Wave Wolcott 98 degrees RI Interval 0 ms No orders to display Final ED Course and MDM: In brief, John Paul Rodriguez is a 72 y.o. whose care was signed out to me by the outgoing provider. In brief, presenting with nausea and nonbloody nonbilious emesis. Workup shows mild KAREN and mild hyperglycemia without evidence of DKA. Patient feeling much improved was tolerating p.o. Was given Zofran and fluids. Low suspicion for SBO or other intra-abdominal process at this time. As instructed follow-up with urinalysis that revealed acute cystitis thus will treat with Macrobid. Patient medically stable for discharge. Return precautions given. Patient instructed follow-up with primary care physician. Patient agreeable to and understands the plan. Medications sodium chloride 0.9 % bolus 1,000 mL (0 mL IntraVENous Stopped 03/29/23 0579) ondansetron (Zofran) injection 4 mg (4 mg IntraVENous Given 03/29/23 2569) Final Impression 1. Nausea and vomiting, unspecified vomiting type DISPOSITION (Please note that portions of this note may have been completed with a voice recognition program. Efforts were made to edit the dictations but occasionally words are mis-transcribed.) Jessie Hawkins, DO [employer] Jessie Hawkins DO 03/29/23 0730 [facility] ED Provider Note [facility] ED EMERGENCY DEPARTMENT ENCOUNTER Pt Name: John Paul Rodriguez Birthdate 1950 Date of evaluation: 03/29/2023 Provider: Tova Nuñez MD CHIEF COMPLAINT Chief Complaint Patient presents with Nausea Woke up with sudden onset nausea and shortness of breath. Denies any vomiting. Denies any chest pain upon wakening. Denies any recent sick contacts. Denies any pain, just uncomfortable feeling in abdomen that she states is just nausea. HISTORY OF PRESENT ILLNESS I wore proper PPE for the entirety of this encounter. John Paul Rodriguez is a 72 y.o. female who presents to the emergency department with nausea and vomiting. It woke her from sleep. She notes a little bit of lightheadedness. She denies chest pain, palpitations, abdominal pain, diarrhea, constipation, dysuria. She notes her last bowel movement was yesterday and she is still able to pass gas. Nursing Notes were reviewed. Limitations to history: None Outside historians: None REVIEW OF SYSTEMS Constitutional: as noted in HPI, and negative for fever/chills Eyes: as noted in HPI, and negative for vision changes ENT: as noted in HPI, and negative for cough CV: as noted in HPI, and negative for chest pain, negative for palpitations Resp: as noted in HPI, and negative for shortness of breath GI: as noted in HPI, and negative for abd pain : as noted in HPI, and negative for urinary symptoms MSK: as noted in HPI, and negative for muscle pain Skin: as noted in HPI, and negative for rash Neuro: as noted in HPI, and negative for headaches, negative for acute focal weakness/numbness PAST MEDICAL HISTORY Past Medical History: Diagnosis Date Arthritis Diabetes mellitus (HCC) Hypertension Pacemaker SURGICAL HISTORY Past Surgical History: Procedure Laterality Date APPENDECTOMY CURRENT MEDICATIONS Discharge Medication List as of 03/29/2023 7:32 AM ALLERGIES Amoxicillin, Biaxin [clarithromycin], and Penicillins FAMILY HISTORY No family history on file. SOCIAL HISTORY Social History Socioeconomic History Marital status: Tobacco Use Smoking status: Never Smokeless tobacco: Never Vaping Use Vaping Use: Never used Substance and Sexual Activity Alcohol use: Never Drug use: Never SCREENINGS PHYSICAL EXAM ED Triage Vitals Temp Heart Rate Resp BP 03/29/23 0400 03/29/23 0354 03/29/23 0354 03/29/23 035 36.8 ?C (98.2 ?F) 74 16 (!) 185/82 SpO2 Temp Source Heart Rate Source Patient Position 03/29/23 0354 03/29/23 0400 03/29/23 0354 03/29/23353 98 % Tympanic Monitor Sitting BP Location FiO2 (%) 03/29/23353 -- Left arm Constitutional: No acute distress HEENT:Head: Atraumatic/normocephalic Eyes: Conjunctivae normal. ENT: Mucous membranes moist. CV: RRR RESP: CTAB, good respiratory effort, no increased wob GI: Abdomen soft, non-tender, non-distended, +BS, no guarding or rebound tenderness MSK: Normal bulk and tone, no gross deformity EXTR: Warm and well perfused SKIN: No rash/bruising/erythema PSYCH: Appropriate affect, cooperative behavior NEURO: Alert and oriented x 3, face symmetric, no slurred speech DIAGNOSTIC RESULTS Procedures/EKG: EKG was reviewed by myself. Physician EKG interpretation can be found in [facility] RADIOLOGY (Per Emergency Physician): Interpretation per the Radiologist below, if available at the time of this note: No orders to display LABS: Labs Reviewed CBC WITH AUTO DIFFERENTIAL - Abnormal Result Value Auto WBC 5.0 RBC 5.06 Hemoglobin 13.8 Hematocrit 42.0 MCV 83.0 MCH 27.2 MCHC 32.8 RDW 16.0 (*) Platelets 191 MPV 9.8 nRBC 0.0 Neutrophils Relative 57.6 Lymphocytes Relative 29.1 Monocytes Relative 9.4 Eosinophils Relative 3.7 Basophils Relative 0.2 Neutrophils Absolute 2.9 Lymphocytes Absolute 1.4 Monocytes Absolute 0.5 Eosinophils Absolute 0.2 Basophils Absolute 0.0 COMPREHENSIVE METABOLIC PANEL - Abnormal SODIUM 136 POTASSIUM 4.5 CHLORIDE 102 CARBON DIOXIDE 26 ANION GAP 8 UREA NITROGEN 18 (*) CREATININE 1.25 (*) GLUCOSE 256 (*) CALCIUM 9.4 AST (SGOT) 28 ALT 17 ALKALINE PHOSPHATASE 78 ALBUMIN 3.5 BILIRUBIN, TOTAL 0.6 TOTAL PROTEIN 7.5 eGFR 45.6 (*) COMPLETE URINALYSIS - Abnormal Color, Urine Yellow Clarity, Urine Clear pH, Urine 6.0 Leukocytes, Urine 25 (*) Nitrite, Urine Negative Protein, Urine 300 (*) Glucose, Urine 200 (*) Bilirubin, Urine Negative Ketones, Urine Negative Urobilinogen, Urine Normal Blood, Urine 0.1 (*) RBC, Urine 11-25 (*) WBC, Urine 11-25 (*) Squamous Epithelial, Urine 3-5 Bacteria, Urine Few (*) Mucus, Urine Few Yeast, Urine Few (*) Hyaline Casts, Urine 3-5 (*) SPECIFIC GRAVITY OF URINE (NUMERIC) 1.021 LIPASE - Normal LIPASE 87 TROPONIN, WITH SERIAL REFLEX - Normal TROPONIN I 0.030 Narrative: Patients with high levels of Biotin oral intake (ie >5 mg/day) may have falsely decreased Troponin levels. (more content not included)... Normal [facility] LIPASEon 03-29-2023 Lipase [Catalytic activity/Vol] 87 U/L Normal 23-[address] [facility] Comment on above: Performed By: #### L [id number], [id number], LAB17 #### Oil Dispatcher: ROBBIE RAWLS ([id number]) [facility] ([facility]) [address] [place] [address] TROPONIN, WITH SERIAL REFLEX on 03-29-2023 Troponin I.cardiac [Mass/Vol] 0.030 ng/mL Normal <0.[address] [facility] Comment on above: Result Comment: [place] COMMENTS: Patients with high levels of Biotin oral intake (ie >5 mg/day) may have falsely decreased Troponin levels. Performed By: #### L [id number], LAB99, LAB17 #### Oil Dispatcher: ROBBIE RAWLS ([id number]) [facility] ([facility] [address] [facility] [address] [place], [place] [id number] [place] [address] URINE CULTUREon 03-29-2023 Bacteria identified Cx Nom (U) URINE CULTURE Reference Normal urogenital es present ENTEROCOCCUS FAECALIS 50,000-90,000 CFU/mL Enterococcus faecalis (A) Organism: ENTEROCOCCUS FAECALIS Antibiotic DAVID Interpretation Status Ampicillin <=2 ug/ml S F Daptomycin 4 ug/ml S F Linezolid 1 ug/ml S F Nitrofurantoin <=16 ug/ml S F Vancomycin 1 ug/ml S F [ S = SUSCEPTIBLE R = RESISTANT I = INTERMEDIATE S-DD = Susceptible-dose dependent NS = Non-susceptible NO = No Interpretation ] Normal [facility] Comment on above: Performed By: #### L [id number] #### Oil Dispatcher: BOB PENALOZA ([id number]) [facility] ([facility]) [address] PROon 02-28-2023 INR Coag (PPP) [Relative time] 1.0 {INR} Normal [facility] ([place]) Comment on above: Result Comment: [employer] (CHEST, 1992, 102:[id number]-[id number])recommended therapeutic range for oral anticoagulant therapy is:LOW RISK: Prophylaxis of venous thrombosis INR: 2.0-3.0 Treatment of pulmonary embolism 2.0-3.0 Prevention of systemic embolism 2.0-3.0HIGH RISK: Mechanical prosthetic valves 2.5-3.5 Performed By: #### P RO ####[address] [address] PT Coag (PPP) [Time] 11.8 s Normal 9.0-14.2 [facility] ([place]) Comment on above: Result Comment: Effe ctive 10/03/07, Protime results may be affected by some antibiotics (i.e. Ciprofloxacin, Azithromycin, Bactrim) which may potentiate the action of oral anticoagulants, with further increases in Protime/INR. Performed By: #### P RO ####[address] [address] CBLon 02-14-2023 CBL Normal [facility] ([place]) .Auto Diffon 07-27-2023 Basophil, Absolute 0.1 10 3/mcL Normal 0.0-0.3 [facility] ([place]) Comment on above: Performed By: #### C BC, PRO, GFR, ANEU, ADIFF, BMP ####[address] [address] Basophils/100 WBC (Bld) 1.3 % Normal 0.0-2.5 [facility] ([place]) Comment on above: Performed By: #### C BC, PRO, GFR, ANEU, ADIFF, BMP ####[address] [address] Eosinophil, Absolute 0.2 10 3/mcL Normal 0.0-0.7 [facility] ([place]) Comment on above: Performed By: #### C BC, PRO, GFR, ANEU, ADIFF, BMP ####[address] [address] Eosinophils/100 WBC (Bld) 1.4 % Normal 0.0-6.0 [facility] ([place]) Comment on above: Performed By: #### C BC, PRO, GFR, ANEU, ADIFF, BMP ####[address] [address] Lymphocyte, Absolute 1.9 10 3/mcL Normal 0.9-4.3 [facility] ([place]) Comment on above: Performed By: #### C BC, PRO, GFR, ANEU, ADIFF, BMP ####[address] [address] Lymphocytes/100 WBC (Bld) 17.1 % Low 20.0-40.0 [facility] ([place]) Comment on above: Performed By: #### C BC, PRO, GFR, ANEU, ADIFF, BMP ####[address] [address] Monocyte, Absolute 1.1 10 3/mcL Normal 0.1-1.4 [facility] ([place]) Comment on above: Performed By: #### C BC, PRO, GFR, ANEU, ADIFF, BMP ####[address] [address] Monocytes/100 WBC (Bld) 10.1 % Normal 2.0-13.0 [facility] ([place]) Comment on above: Performed By: #### C BC, PRO, GFR, ANEU, ADIFF, BMP ####[address] [address] Neutrophils/100 WBC (Bld) 70.1 % Normal 50.0-75.0 [facility] ([place]) Comment on above: Performed By: #### C BC, PRO, GFR, ANEU, ADIFF, BMP ####[address] [address] .GFRon 10-14-2022 GFR 50 ml/min/1.73sqm Normal [facility] ([place]) Comment on above: Result Comment: GFR Population mean for , Non- Americans Ages 20-29 = 116 mL/min/1.73 sq.m. Ages 30-39 = 107 mL/min/1.73 sq.m. Ages 40-49 = 99 mL/min/1.73 sq.m. Ages 50-59 = 93 mL/min/1.73 sq.m. Ages 60-69 = 85 mL/min/1.73 sq.m. Ages 70+ = 75 mL/min/1.73 sq.m.Chronic Kidney Disease: Less than 60 mL/min/1.73 square metersEnd Stage Renal Disease: Less than 15 mL/min/1.73 square meters Performed By: #### C BC, PRO, GFR, ANEU, ADIFF, BMP ####[address] [address] GFR Non- 42 ml/min/1.73sqm Normal [facility] ([place]) Comment on above: Result Comment: GFR Population mean for , Non- Americans Ages 20-29 = 116 mL/min/1.73 sq.m. Ages 30-39 = 107 mL/min/1.73 sq.m. Ages 40-49 = 99 mL/min/1.73 sq.m. Ages 50-59 = 93 mL/min/1.73 sq.m. Ages 60-69 = 85 mL/min/1.73 sq.m. Ages 70+ = 75 mL/min/1.73 sq.m.Chronic Kidney Disease: Less than 60 mL/min/1.73 square metersEnd Stage Renal Disease: Less than 15 mL/min/1.73 square meters Performed By: #### C BC, PRO, GFR, ANEU, ADIFF, BMP ####[place] [address] .NEUABSon 10-14-2022 Neutrophil, Absolute 7.8 10 3/mcL Normal 2.3-8.1 [facility] ([place]) Comment on above: Performed By: #### C BC, PRO, GFR, ANEU, ADIFF, BMP ####[place] [address] BMPon 10-14-2022 BUN/Creatinine Ratio 23.8 ratio High 10.0-22.0 [facility] ([place]) Comment on above: Performed By: #### C BC, PRO, GFR, ANEU, ADIFF, BMP ####[place] [address] Calcium [Mass/Vol] 8.9 mg/dL Normal 8.7-10.4 [facility] ([place]) Comment on above: Performed By: #### C BC, PRO, GFR, ANEU, ADIFF, BMP ####[place] [address] Chloride [Moles/Vol] 106 mmol/L Normal 98-110 [facility] ([place]) Comment on above: Performed By: #### C BC, PRO, GFR, ANEU, ADIFF, BMP ####[place] [address] CO2 [Moles/Vol] 31 mmol/L Normal 22-32 [facility] ([place]) Comment on above: Performed By: #### C BC, PRO, GFR, ANEU, ADIFF, BMP ####[place] [address] Creatinine [Mass/Vol] 1.26 mg/dL High 0.50-1.20 [facility] ([place]) Comment on above: Performed By: #### C BC, PRO, GFR, ANEU, ADIFF, BMP ####[place] [address] Electrolyte Balance 5.0 mEq/L Normal 4.0-15.0 [facility] ([place]) Comment on above: Performed By: #### C BC, PRO, GFR, ANEU, ADIFF, BMP ####[place] [address] Glucose [Mass/Vol] 102 mg/dL Normal 82-115 [facility] ([place]) Comment on above: Performed By: #### C BC, PRO, GFR, ANEU, ADIFF, BMP ####[place] [address] Potassium [Moles/Vol] 4.4 mmol/L Normal 3.5-5.0 [facility] ([place]) Comment on above: Performed By: #### C BC, PRO, GFR, ANEU, ADIFF, BMP ####[place] [address] Sodium [Moles/Vol] 142 mmol/L Normal 136-145 [facility] ([place]) Comment on above: Performed By: #### C BC, PRO, GFR, ANEU, ADIFF, BMP ####[place] [address] Urea nitrogen [Mass/Vol] 30.0 mg/dL High 8.0-22.0 [facility] ([place]) Comment on above: Performed By: #### C BC, PRO, GFR, ANEU, ADIFF, BMP ####[place] [address] CBCon 10-14-2022 Erythrocyte distribution width (RBC) [Ratio] 16.1 % High 11.5-15.5 [facility] ([place]) Comment on above: Performed By: #### C BC, PRO, GFR, ANEU, ADIFF, BMP ####[place] [address] Hematocrit (Bld) [Volume fraction] 36.1 % Normal 34.0-46.0 [facility] ([place]) Comment on above: Performed By: #### C BC, PRO, GFR, ANEU, ADIFF, BMP ####[place] [address] Hgb 11.7 G/dL Low 12.0-16.0 [facility] ([place]) Comment on above: Performed By: #### C BC, PRO, GFR, ANEU, ADIFF, BMP ####[place] [address] MCH (RBC) [[place]itic mass] 27.2 pg Normal 27.0-33.0 [facility] ([place]) Comment on above: Performed By: #### C BC, PRO, GFR, ANEU, ADIFF, BMP ####[place] [address] MCHC 32.3 G/dL Normal 32.0-36.0 [facility] ([place]) Comment on above: Performed By: #### C BC, PRO, GFR, ANEU, ADIFF, BMP ####[place] [address] MCV (RBC) [Entitic vol] 84.3 fL Normal 80.0-99.0 [facility] ([place]) Comment on above: Performed By: #### C BC, PRO, GFR, ANEU, ADIFF, BMP ####[place] [address] Platelet 223 10 3/mcL Normal 150-450 [facility] ([place]) Comment on above: Performed By: #### C BC, PRO, GFR, ANEU, ADIFF, BMP ####[place] [address] Platelet mean volume (Bld) [Entitic vol] 9.2 fL Normal 6.6-10.5 [facility] ([place]) Comment on above: Performed By: #### C BC, PRO, GFR, ANEU, ADIFF, BMP ####[place] [address] RBC 4.29 10 6/mcL Normal 4.10-5.30 [facility] ([place]) Comment on above: Performed By: #### C BC, PRO, GFR, ANEU, ADIFF, BMP ####[place] [address] WBC 11.2 10 3/mcL High 4.5-10.8 [facility] ([place]) Comment on above: Performed By: #### C BC, PRO, GFR, ANEU, ADIFF, BMP ####[place] [id number] [place] [address] LABORATORYOrdered By: Diane Hernandez on 10-14-2022 Blood Glucose Testing Reason Routine (10/14/22 9:11 PM) [facility] Glucose [Mass/Vol] 182 mg/dL Invalid Interpretation Code 82 - 115 mg/dL [facility] LABORATORYOrdered By: Danii Lester on 10-14-2022 Blood Glucose Testing Reason Routine (10/14/22 3:58 PM) [facility] Glucose [Mass/Vol] 155 mg/dL Invalid Interpretation Code 82 - 115 mg/dL [facility] LABORATORYOrdered By: Lang Call on 10-14-2022 Blood Glucose Testing Reason Routine (10/14/22 11:34 AM) [facility] Glucose [Mass/Vol] 240 mg/dL Invalid Interpretation Code 82 - 115 mg/dL [facility] LABORATORYOrdered By: SYSTEM SYSTEM on 10-14-2022 Basophils (Bld) [#/Vol] 0.1 103/mcL Invalid Interpretation Code 0.0 - 0.3 10^3/mcL AH Workflow SS Basophils/100 WBC (Bld) 1.3 % Invalid Interpretation Code 0.0 - 2.5 % AH Workflow SS Calcium [Mass/Vol] 8.9 mg/dL Invalid Interpretation Code 8.7 - 10.4 mg/dL AH ADM SS Chloride [Moles/Vol] 106 mmol/L Invalid Interpretation Code 98 - 110 mEq/L AH ADM SS CO2 [Moles/Vol] 31 mmol/L Invalid Interpretation Code 22 - 32 mEq/L AH ADM SS Creatinine [Mass/Vol] 1.26 mg/dL Invalid Interpretation Code 0.50 - 1.20 mg/dL AH ADM SS Electrolyte Balance 5.0 mEq/L Invalid Interpretation Code 4.0 - 15.0 mEq/L AH ADM SS Eosinophils (Bld) [#/Vol] 0.2 103/mcL Invalid Interpretation Code 0.0 - 0.7 10^3/mcL Workflow SS Eosinophils/100 WBC (Bld) 1.4 % Invalid Interpretation Code 0.0 - 6.0 % Workflow SS Erythrocyte distribution width (RBC) [Ratio] 16.1 % Invalid Interpretation Code 11.5 - 15.5 % Workflow SS GFR/1.73 sq M.predicted among blacks MDRD (S/P/Bld) [Vol rate/Area] 50 ml/min/1.73sqm Invalid Interpretation Code Chemistry S Comment on above: Interpretive Data: GFR Population mean for , Non- Americans Ages 20-29 = 116 mL/min/1.73 sq.m. Ages 30-39 = 107 mL/min/1.73 sq.m. Ages 40-49 = 99 mL/min/1.73 sq.m. Ages 50-59 = 93 mL/min/1.73 sq.m. Ages 60-69 = 85 mL/min/1.73 sq.m. Ages 70+ = 75 mL/min/1.73 sq.m. Chronic Kidney Disease: Less than 60 mL/min/1.73 square meters End Stage Renal Disease: Less than 15 mL/min/1.73 square meters GFR/1.73 sq M.predicted among non-blacks MDRD (S/P/Bld) [Vol rate/Area] 42 ml/min/1.73sqm Invalid Interpretation Code Chemistry S Comment on above: Interpretive Data: GFR Population mean for , Non- Americans Ages 20-29 = 116 mL/min/1.73 sq.m. Ages 30-39 = 107 mL/min/1.73 sq.m. Ages 40-49 = 99 mL/min/1.73 sq.m. Ages 50-59 = 93 mL/min/1.73 sq.m. Ages 60-69 = 85 mL/min/1.73 sq.m. Ages 70+ = 75 mL/min/1.73 sq.m. Chronic Kidney Disease: Less than 60 mL/min/1.73 square meters End Stage Renal Disease: Less than 15 mL/min/1.73 square meters Glucose [Mass/Vol] 102 mg/dL Invalid Interpretation Code 82 - 115 mg/dL ADM SS Hematocrit (Bld) [Volume fraction] 36.1 % Invalid Interpretation Code 34.0 - 46.0 % AH Workflow SS Hemoglobin (Bld) [Mass/Vol] 11.7 G/dL Invalid Interpretation Code 12.0 - 16.0 G/dL AH Workflow SS Lymphocytes (Bld) [#/Vol] 1.9 103/mcL Invalid Interpretation Code 0.9 - 4.3 10^3/mcL AH Workflow SS Lymphocytes/100 WBC (Bld) 17.1 % Invalid Interpretation Code 20.0 - 40.0 % AH Workflow SS MCH (RBC) [Entitic mass] 27.2 pg Invalid Interpretation Code 27.0 - 33.0 pg AH Workflow SS MCHC 32.3 G/dL Invalid Interpretation Code 32.0 - 36.0 G/dL AH Workflow SS MCV (RBC) [Entitic vol] 84.3 fL Invalid Interpretation Code 80.0 - 99.0 fL AH Workflow SS Monocytes (Bld) [#/Vol] 1.1 103/mcL Invalid Interpretation Code 0.1 - 1.4 10^3/mcL AH Workflow SS Monocytes/100 WBC (Bld) 10.1 % Invalid Interpretation Code 2.0 - 13.0 % AH Workflow SS Neutrophils (Bld) [#/Vol] 7.8 103/mcL Invalid Interpretation Code 2.3 - 8.1 10^3/mcL AH Workflow SS Neutrophils/100 WBC (Bld) 70.1 % Invalid Interpretation Code 50.0 - 75.0 % AH Workflow SS Platelet mean volume (Bld) [Entitic vol] 9.2 fL Invalid Interpretation Code 6.6 - 10.5 fL AH Workflow SS Platelets (Bld) [#/Vol] 223 103/mcL Invalid Interpretation Code 150 - 450 10^3/mcL AH Workflow SS Potassium [Moles/Vol] 4.4 mmol/L Invalid Interpretation Code 3.5 - 5.0 mEq/L AH ADM SS RBC (Bld) [#/Vol] 4.29 106/mcL Invalid Interpretation Code 4.10 - 5.30 10^6/mcL AH Workflow SS Sodium [Moles/Vol] 142 mmol/L Invalid Interpretation Code 136 - 145 mEq/L AH ADM SS Urea nitrogen [Mass/Vol] 30.0 mg/dL Invalid Interpretation Code 8.0 - 22.0 mg/dL AH ADM SS Urea nitrogen/Creatinine [Mass ratio] 23.8 ratio Invalid Interpretation Code 10.0 - 22.0 ratio AH ADM SS WBC (Bld) [#/Vol] 11.2 103/mcL Invalid Interpretation Code 4.5 - 10.8 10^3/mcL AH Workflow SS LABORATORYOrdered By: Sapna Hernandez on 10-14-2022 INR Coag (PPP) [Relative time] 1.7 {INR} Invalid Interpretation Code AH Auto Coag SS Comment on above: Interpretive Data: T don [employer] (CHEST, 1991, 102:312S-25S) recommended therapeutic range for oral anticoagulant therapy is: LOW RISK: Prophylaxis of venous thrombosis INR: 2.0-3.0 Treatment of pulmonary embolism 2.0-3.0 Prevention of systemic embolism 2.0-3.0 HIGH RISK: Mechanical prosthetic valves 2.5-3.5 PT Coag (PPP) [Time] 20.0 s Invalid Interpretation Code 9.0 - 14.8 seconds AH Auto Coag SS Comment on above: Interpretive Data: E ffective 10/03/07, Protime results may be affected by some antibiotics (i.e. Ciprofloxacin, Azithromycin, Bactrim) which may potentiate the action of oral anticoagulants, with further increases in Protime/INR. PROon 10-14-2022 INR Coag (PPP) [Relative time] 1.7 {INR} Normal [facility] ([place]) Comment on above: Result Comment: [employer] (CHEST, 1991, 102:312S-25S)recommended therapeutic range for oral anticoagulant therapy is:LOW RISK: Prophylaxis of venous thrombosis INR: 2.0-3.0 Treatment of pulmonary embolism 2.0-3.0 Prevention of systemic embolism 2.0-3.0HIGH RISK: Mechanical prosthetic valves 2.5-3.5 Performed By: #### C BC, PRO, GFR, ANEU, ADIFF, BMP ####[address] [address] PT Coag (PPP) [Time] 20.0 s High 9.0-14.8 [facility] ([place]) Comment on above: Result Comment: Effe ctive 10/03/07, Protime results may be affected by some antibiotics (i.e. Ciprofloxacin, Azithromycin, Bactrim) which may potentiate the action of oral anticoagulants, with further increases in Protime/INR. Performed By: #### C BC, PRO, GFR, ANEU, ADIFF, BMP ####[address] [address] .Auto Diffon 10-13-2022 Basophil, Absolute 0.2 10 3/mcL Normal 0.0-0.3 [facility] ([place]) Comment on above: Performed By: #### B MP, GFR, ADIFF, CBC, ANEU ####[place] [address] Basophils/100 WBC (Bld) 1.4 % Normal 0.0-2.5 [facility] ([place]) Comment on above: Performed By: #### B MP, GFR, ADIFF, CBC, ANEU ####[place] [address] Eosinophil, Absolute 0.1 10 3/mcL Normal 0.0-0.7 [facility] ([place]) Comment on above: Performed By: #### B MP, GFR, ADIFF, CBC, ANEU ####[place] [address] Eosinophils/100 WBC (Bld) 1.0 % Normal 0.0-6.0 [facility] ([place]) Comment on above: Performed By: #### B MP, GFR, ADIFF, CBC, ANEU ####[place] [address] Lymphocyte, Absolute 1.6 10 3/mcL Normal 0.9-4.3 [facility] ([place]) Comment on above: Performed By: #### B MP, GFR, ADIFF, CBC, ANEU ####[place] [address] Lymphocytes/100 WBC (Bld) 14.2 % Low 20.0-40.0 [facility] ([place] Comment on above: Performed By: #### B MP, GFR, ADIFF, CBC, ANEU ####[place] [address] Monocyte, Absolute 1.1 10 3/mcL Normal 0.1-1.4 [facility] ([place]) Comment on above: Performed By: #### B MP, GFR, ADIFF, CBC, ANEU ####[address] [address] Monocytes/100 WBC (Bld) 9.8 % Normal 2.0-13.0 [facility] ([place]) Comment on above: Performed By: #### B MP, GFR, ADIFF, CBC, ANEU ####[address] [address] Neutrophils/100 WBC (Bld) 73.6 % Normal 50.0-75.0 [facility] ([place]) Comment on above: Performed By: #### B MP, GFR, ADIFF, CBC, ANEU ####[address] [address] .GFRon 10-13-2022 GFR 56 ml/min/1.73sqm Normal [facility] ([place]) Comment on above: Result Comment: GFR Population mean for , Non- Americans Ages 20-29 = 116 mL/min/1.73 sq.m. Ages 30-39 = 107 mL/min/1.73 sq.m. Ages 40-49 = 99 mL/min/1.73 sq.m. Ages 50-59 = 93 mL/min/1.73 sq.m. Ages 60-69 = 85 mL/min/1.73 sq.m. Ages 70+ = 75 mL/min/1.73 sq.m.Chronic Kidney Disease: Less than 60 mL/min/1.73 square metersEnd Stage Renal Disease: Less than 15 mL/min/1.73 square meters Performed By: #### B MP, GFR, ADIFF, CBC, ANEU ####[address] [address] GFR Non- 46 ml/min/1.73sqm Normal [facility] ([place]) Comment on above: Result Comment: GFR Population mean for , Non- Americans Ages 20-29 = 116 mL/min/1.73 sq.m. Ages 30-39 = 107 mL/min/1.73 sq.m. Ages 40-49 = 99 mL/min/1.73 sq.m. Ages 50-59 = 93 mL/min/1.73 sq.m. Ages 60-69 = 85 mL/min/1.73 sq.m. Ages 70+ = 75 mL/min/1.73 sq.m.Chronic Kidney Disease: Less than 60 mL/min/1.73 square metersEnd Stage Renal Disease: Less than 15 mL/min/1.73 square meters Performed By: #### B MP, GFR, ADIFF, CBC, ANEU ####[address] [address] .NEUABSon 10-13-2022 Neutrophil, Absolute 8.5 10 3/mcL High 2.3-8.1 [facility] ([place] Comment on above: Performed By: #### B MP, GFR, ADIFF, CBC, ANEU ####[place] [address] BMPon 10-13-2022 BUN/Creatinine Ratio 31.0 ratio High 10.0-22.0 [facility] ([place]) Comment on above: Performed By: #### B MP, GFR, ADIFF, CBC, ANEU ####[place] [address] Calcium [Mass/Vol] 9.5 mg/dL Normal 8.7-10.4 [facility] ([place]) Comment on above: Performed By: #### B MP, GFR, ADIFF, CBC, ANEU ####[place] [address] Chloride [Moles/Vol] 104 mmol/L Normal 98-110 [facility] ([place]) Comment on above: Performed By: #### B MP, GFR, ADIFF, CBC, ANEU ####[place] [address] CO2 [Moles/Vol] 30 mmol/L Normal 22-32 [facility] ([place] Comment on above: Performed By: #### B MP, GFR, ADIFF, CBC, ANEU ####[place] [address] Creatinine [Mass/Vol] 1.16 mg/dL Normal 0.50-1.20 [facility] ([place] Comment on above: Performed By: #### B MP, GFR, ADIFF, CBC, ANEU ####[place] [address] Electrolyte Balance 5.0 mEq/L Normal 4.0-15.0 [facility] ([place]) Comment on above: Performed By: #### B MP, GFR, ADIFF, CBC, ANEU ####[place] [address] Glucose [Mass/Vol] 188 mg/dL High 82-115 [facility] ([place] Comment on above: Performed By: #### B MP, GFR, ADIFF, CBC, ANEU ####[place] [address] Potassium [Moles/Vol] 4.4 mmol/L Normal 3.5-5.0 [facility] ([place] Comment on above: Performed By: #### B MP, GFR, ADIFF, CBC, ANEU ####[place] [address] Sodium [Moles/Vol] 139 mmol/L Normal 136-145 [facility] ([place] Comment on above: Performed By: #### B MP, GFR, ADIFF, CBC, ANEU ####[place] [address] Urea nitrogen [Mass/Vol] 36.0 mg/dL High 8.0-22.0 [facility] ([place] Comment on above: Performed By: #### B MP, GFR, ADIFF, CBC, ANEU ####[place] [address] CBCon 10-13-2022 Erythrocyte distribution width (RBC) [Ratio] 16.2 % High 11.5-15.5 [facility] ([place] Comment on above: Performed By: #### B MP, GFR, ADIFF, CBC, ANEU ####[place] [address] Hematocrit (Bld) [Volume fraction] 36.0 % Normal 34.0-46.0 [facility] ([place] Comment on above: Performed By: #### B MP, GFR, ADIFF, CBC, ANEU ####[place] [address] Hgb 11.9 G/dL Low 12.0-16.0 [facility] ([place] Comment on above: Performed By: #### B MP, GFR, ADIFF, CBC, ANEU ####[place] [address] MCH (RBC) [Entitic mass] 27.8 pg Normal 27.0-33.0 [facility] ([place] Comment on above: Performed By: #### B MP, GFR, ADIFF, CBC, ANEU ####[place] [address] MCHC 33.1 G/dL Normal 32.0-36.0 [facility] ([place] Comment on above: Performed By: #### B MP, GFR, ADIFF, CBC, ANEU ####[place] [address] MCV (RBC) [Entitic vol] 84.0 fL Normal 80.0-99.0 [facility] ([place] Comment on above: Performed By: #### B MP, GFR, ADIFF, CBC, ANEU ####[place] [address] Platelet 239 10 3/mcL Normal 150-450 [facility] ([place] Comment on above: Performed By: #### B MP, GFR, ADIFF, CBC, ANEU ####[place] [address] Platelet mean volume (Bld) [Entitic vol] 9.0 fL Normal 6.6-10.5 [facility] ([place]) Comment on above: Performed By: #### B MP, GFR, ADIFF, CBC, ANEU ####[place] [address] RBC 4.29 10 6/mcL Normal 4.10-5.30 [facility] ([place] Comment on above: Performed By: #### B MP, GFR, ADIFF, CBC, ANEU ####[place] [address] WBC 11.5 10 3/mcL High 4.5-10.8 [facility] ([place]) Comment on above: Performed By: #### B MP, GFR, ADIFF, CBC, ANEU ####[facility] [place] [address] CBLon 10-13-2022 CBL Normal [facility] ([place]) LABORATORYOrdered By: SYSTEM SYSTEM on 10-13-2022 Basophils (Bld) [#/Vol] 0.2 103/mcL Invalid Interpretation Code 0.0 - 0.3 10^3/mcL Workflow SS Basophils/100 WBC (Bld) 1.4 % Invalid Interpretation Code 0.0 - 2.5 % AH Workflow SS Calcium [Mass/Vol] 9.5 mg/dL Invalid Interpretation Code 8.7 - 10.4 mg/dL ADM SS Chloride [Moles/Vol] 104 mmol/L Invalid Interpretation Code 98 - 110 mEq/L ADM SS CO2 [Moles/Vol] 30 mmol/L Invalid Interpretation Code 22 - 32 mEq/L ADM SS Creatinine [Mass/Vol] 1.16 mg/dL Invalid Interpretation Code 0.50 - 1.20 mg/dL ADM SS Electrolyte Balance 5.0 mEq/L Invalid Interpretation Code 4.0 - 15.0 mEq/L ADM SS Eosinophils (Bld) [#/Vol] 0.1 103/mcL Invalid Interpretation Code 0.0 - 0.7 10^3/mcL Workflow SS Eosinophils/100 WBC (Bld) 1.0 % Invalid Interpretation Code 0.0 - 6.0 % Workflow SS Erythrocyte distribution width (RBC) [Ratio] 16.2 % Invalid Interpretation Code 11.5 - 15.5 % Workflow SS GFR/1.73 sq M.predicted among blacks MDRD (S/P/Bld) [Vol rate/Area] 56 ml/min/1.73sqm Invalid Interpretation Code Chemistry S Comment on above: Interpretive Data: GFR Population mean for , Non- Americans Ages 20-29 = 116 mL/min/1.73 sq.m. Ages 30-39 = 107 mL/min/1.73 sq.m. Ages 40-49 = 99 mL/min/1.73 sq.m. Ages 50-59 = 93 mL/min/1.73 sq.m. Ages 60-69 = 85 mL/min/1.73 sq.m. Ages 70+ = 75 mL/min/1.73 sq.m. Chronic Kidney Disease: Less than 60 mL/min/1.73 square meters End Stage Renal Disease: Less than 15 mL/min/1.73 square meters GFR/1.73 sq M.predicted among non-blacks MDRD (S/P/Bld) [Vol rate/Area] 46 ml/min/1.73sqm Invalid Interpretation Code Chemistry S Comment on above: Interpretive Data: GFR Population mean for , Non- Americans Ages 20-29 = 116 mL/min/1.73 sq.m. Ages 30-39 = 107 mL/min/1.73 sq.m. Ages 40-49 = 99 mL/min/1.73 sq.m. Ages 50-59 = 93 mL/min/1.73 sq.m. Ages 60-69 = 85 mL/min/1.73 sq.m. Ages 70+ = 75 mL/min/1.73 sq.m. Chronic Kidney Disease: Less than 60 mL/min/1.73 square meters End Stage Renal Disease: Less than 15 mL/min/1.73 square meters Glucose [Mass/Vol] 188 mg/dL Invalid Interpretation Code 82 - 115 mg/dL ADM SS Hematocrit (Bld) [Volume fraction] 36.0 % Invalid Interpretation Code 34.0 - 46.0 % Workflow SS Hemoglobin (Bld) [Mass/Vol] 11.9 G/dL Invalid Interpretation Code 12.0 - 16.0 G/dL AH Workflow SS Lymphocytes (Bld) [#/Vol] 1.6 103/mcL Invalid Interpretation Code 0.9 - 4.3 10^3/mcL Workflow SS Lymphocytes/100 WBC (Bld) 14.2 % Invalid Interpretation Code 20.0 - 40.0 % Workflow SS MCH (RBC) [Entitic mass] 27.8 pg Invalid Interpretation Code 27.0 - 33.0 pg AH Workflow SS MCHC 33.1 G/dL Invalid Interpretation Code 32.0 - 36.0 G/dL Workflow SS MCV (RBC) [Entitic vol] 84.0 fL Invalid Interpretation Code 80.0 - 99.0 fL Workflow SS Monocytes (Bld) [#/Vol] 1.1 103/mcL Invalid Interpretation Code 0.1 - 1.4 10^3/mcL AH Workflow SS Monocytes/100 WBC (Bld) 9.8 % Invalid Interpretation Code 2.0 - 13.0 % AH Workflow SS Neutrophils (Bld) [#/Vol] 8.5 103/mcL Invalid Interpretation Code 2.3 - 8.1 10^3/mcL AH Workflow SS Neutrophils/100 WBC (Bld) 73.6 % Invalid Interpretation Code 50.0 - 75.0 % AH Workflow SS Platelet mean volume (Bld) [Entitic vol] 9.0 fL Invalid Interpretation Code 6.6 - 10.5 fL AH Workflow SS Platelets (Bld) [#/Vol] 239 103/mcL Invalid Interpretation Code 150 - 450 10^3/mcL AH Workflow SS Potassium [Moles/Vol] 4.4 mmol/L Invalid Interpretation Code 3.5 - 5.0 mEq/L AH ADM SS RBC (Bld) [#/Vol] 4.29 106/mcL Invalid Interpretation Code 4.10 - 5.30 10^6/mcL AH Workflow SS Sodium [Moles/Vol] 139 mmol/L Invalid Interpretation Code 136 - 145 mEq/L ADM SS Urea nitrogen [Mass/Vol] 36.0 mg/dL Invalid Interpretation Code 8.0 - 22.0 mg/dL ADM SS Urea nitrogen/Creatinine [Mass ratio] 31.0 ratio Invalid Interpretation Code 10.0 - 22.0 ratio AH ADM SS WBC (Bld) [#/Vol] 11.5 103/mcL Invalid Interpretation Code 4.5 - 10.8 10^3/mcL Workflow SS LABORATORYOrdered By: Can Schneider on 10-13-2022 INR Coag (PPP) [Relative time] 1.8 {INR} Invalid Interpretation Code Auto Coag SS Comment on above: Interpretive Data: Salvador ochoa [employer] (CHEST, 1992, 102:312S-25S) recommended therapeutic range for oral anticoagulant therapy is: LOW RISK: Prophylaxis of venous thrombosis INR: 2.0-3.0 Treatment of pulmonary embolism 2.0-3.0 Prevention of systemic embolism 2.0-3.0 HIGH RISK: Mechanical prosthetic valves 2.5-3.5 PT Coag (PPP) [Time] 21.8 s Invalid Interpretation Code 9.0 - 14.8 seconds Auto Coag SS Comment on above: Interpretive Data: E ffective 10/03/07, Protime results may be affected by some antibiotics (i.e. Ciprofloxacin, Azithromycin, Bactrim) which may potentiate the action of oral anticoagulants, with further increases in Protime/INR. PROon 10-13-2022 INR Coag (PPP) [Relative time] 1.8 {INR} Normal [facility] ([place]) Comment on above: Result Comment: [employer] (CHEST, 1991, 102:312S-25S)recommended therapeutic range for oral anticoagulant therapy is:LOW RISK: Prophylaxis of venous thrombosis INR: 2.0-3.0 Treatment of pulmonary embolism 2.0-3.0 Prevention of systemic embolism 2.0-3.0HIGH RISK: Mechanical prosthetic valves 2.5-3.5 Performed By: #### P RO ####[address] [address] PT Coag (PPP) [Time] 21.8 s High 9.0-14.8 [facility] ([place]) Comment on above: Result Comment: Effe ctive 10/03/07, Protime results may be affected by some antibiotics (i.e. Ciprofloxacin, Azithromycin, Bactrim) which may potentiate the action of oral anticoagulants, with further increases in Protime/INR. Performed By: #### P RO ####[place] [address] APTTon 10-12-2022 aPTT Coag (Bld) [Time] 83.5 s High 25.0-35.0 [facility] ([place]) Comment on above: Result Comment: For Heparin anticoagulation therapy, the recommendedtherapeutic range is: 54-77 seconds (APTT Correlationwith Anti-Xa therapeutic range of 0.3-0.7 units/ml).PLEASE REFERENCE THE PHARMACY PROTOCOL FOR DOSING. Performed By: #### A PTT ####[address] [address] Heparin dose (APTT) Heparin IV Normal [facility] ([place]) Comment on above: Performed By: #### A PTT ####[address] [address] aPTT Coag (Bld) [Time] 93.3 s High 25.0-35.0 [facility] ([place]) Comment on above: Result Comment: For Heparin anticoagulation therapy, the recommendedtherapeutic range is: 54-77 seconds (APTT Correlationwith Anti-Xa therapeutic range of 0.3-0.7 units/ml).PLEASE REFERENCE THE PHARMACY PROTOCOL FOR DOSING. Performed By: #### P RO, APTT ####[address] [address] Heparin dose (APTT) Heparin IV Normal [facility] ([place] Comment on above: Performed By: #### P RO, APTT ####[address] [address] LABORATORYOrdered By: Asad Wilson on 10-12-2022 aPTT Coag (PPP) [Time] 83.5 s Invalid Interpretation Code 25.0 - 35.0 seconds AH Auto Coag SS Comment on above: Interpretive Data: F or Heparin anticoagulation therapy, the recommended therapeutic range is: 54-77 seconds (APTT Correlation with Anti-Xa therapeutic range of 0.3-0.7 units/ml). PLEASE REFERENCE THE PHARMACY PROTOCOL FOR DOSING. Heparin dose (APTT) Heparin IV (10/12/22 10:26 AM) Invalid Interpretation Code AH Auto Coag SS LABORATORYOrdered By: Gautam Ching on 10-12-2022 aPTT Coag (PPP) [Time] 93.3 s Invalid Interpretation Code 25.0 - 35.0 seconds AH Auto Coag SS Comment on above: Interpretive Data: F or Heparin anticoagulation therapy, the recommended therapeutic range is: 54-77 seconds (APTT Correlation with Anti-Xa therapeutic range of 0.3-0.7 units/ml). PLEASE REFERENCE THE PHARMACY PROTOCOL FOR DOSING. Heparin dose (APTT) Heparin IV (10/12/22 3:39 AM) Invalid Interpretation Code AH Auto Coag SS INR Coag (PPP) [Relative time] 1.8 {INR} Invalid Interpretation Code AH Auto Coag SS Comment on above: Interpretive Data: Salvador ochoa [employer] (CHEST, 1992, 102:312S-25S) recommended therapeutic range for oral anticoagulant therapy is: LOW RISK: Prophylaxis of venous thrombosis INR: 2.0-3.0 Treatment of pulmonary embolism 2.0-3.0 Prevention of systemic embolism 2.0-3.0 HIGH RISK: Mechanical prosthetic valves 2.5-3.5 PT Coag (PPP) [Time] 21.6 s Invalid Interpretation Code 9.0 - 14.8 seconds AH Auto Coag SS Comment on above: Interpretive Data: E ffective 10/03/07, Protime results may be affected by some antibiotics (i.e. Ciprofloxacin, Azithromycin, Bactrim) which may potentiate the action of oral anticoagulants, with further increases in Protime/INR. PROon 10-12-2022 INR Coag (PPP) [Relative time] 1.8 {INR} Normal [facility] ([place]) Comment on above: Result Comment: [employer] (CHEST, 1991, 102:312S-25S)recommended therapeutic range for oral anticoagulant therapy is:LOW RISK: Prophylaxis of venous thrombosis INR: 2.0-3.0 Treatment of pulmonary embolism 2.0-3.0 Prevention of systemic embolism 2.0-3.0HIGH RISK: Mechanical prosthetic valves 2.5-3.5 Performed By: #### P RO, APTT ####[place] [address] PT Coag (PPP) [Time] 21.6 s High 9.0-14.8 [facility] ([place]) Comment on above: Result Comment: Effe ctive 10/03/07, Protime results may be affected by some antibiotics (i.e. Ciprofloxacin, Azithromycin, Bactrim) which may potentiate the action of oral anticoagulants, with further increases in Protime/INR. Performed By: #### P RO, APTT ####[place] [address] .Auto Diffon 10-11-2022 Basophil, Absolute 0.1 10 3/mcL Normal 0.0-0.3 [facility] ([place]) Comment on above: Performed By: #### G FR, ANEU, CBC, ADIFF, BMP, PRO ####[place] [address] Basophils/100 WBC (Bld) 1.4 % Normal 0.0-2.5 [facility] ([place]) Comment on above: Performed By: #### G FR, ANEU, CBC, ADIFF, BMP, PRO ####[place] [address] Eosinophil, Absolute 0.2 10 3/mcL Normal 0.0-0.7 [facility] ([place]) Comment on above: Performed By: #### G FR, ANEU, CBC, ADIFF, BMP, PRO ####[address] [address] Eosinophils/100 WBC (Bld) 2.4 % Normal 0.0-6.0 [facility] ([place]) Comment on above: Performed By: #### G FR, ANEU, CBC, ADIFF, BMP, PRO ####[address] [address] Lymphocyte, Absolute 2.3 10 3/mcL Normal 0.9-4.3 [facility] ([place] Comment on above: Performed By: #### G FR, ANEU, CBC, ADIFF, BMP, PRO ####[address] [address] Lymphocytes/100 WBC (Bld) 26.7 % Normal 20.0-40.0 [facility] ([place]) Comment on above: Performed By: #### G FR, ANEU, CBC, ADIFF, BMP, PRO ####[address] [address] Monocyte, Absolute 0.7 10 3/mcL Normal 0.1-1.4 [facility] ([place] Comment on above: Performed By: #### G FR, ANEU, CBC, ADIFF, BMP, PRO ####[address] [address] Monocytes/100 WBC (Bld) 8.5 % Normal 2.0-13.0 [facility] ([place] Comment on above: Performed By: #### G FR, ANEU, CBC, ADIFF, BMP, PRO ####[address] [address] Neutrophils/100 WBC (Bld) 61.0 % Normal 50.0-75.0 [facility] ([place] Comment on above: Performed By: #### G FR, ANEU, CBC, ADIFF, BMP, PRO ####[address] [address] .GFRon 2023 GFR >60 Normal [facility] ([place]) Comment on above: Result Comment: GFR Population mean for , Non- Americans Ages 20-29 = 116 mL/min/1.73 sq.m. Ages 30-39 = 107 mL/min/1.73 sq.m. Ages 40-49 = 99 mL/min/1.73 sq.m. Ages 50-59 = 93 mL/min/1.73 sq.m. Ages 60-69 = 85 mL/min/1.73 sq.m. Ages 70+ = 75 mL/min/1.73 sq.m.Chronic Kidney Disease: Less than 60 mL/min/1.73 square metersEnd Stage Renal Disease: Less than 15 mL/min/1.73 square meters Performed By: #### G FR, ANEU, CBC, ADIFF, BMP, PRO ####[place] [address] GFR Non- >60 Normal [facility] ([place] Comment on above: Result Comment: GFR Population mean for , Non- Americans Ages 20-29 = 116 mL/min/1.73 sq.m. Ages 30-39 = 107 mL/min/1.73 sq.m. Ages 40-49 = 99 mL/min/1.73 sq.m. Ages 50-59 = 93 mL/min/1.73 sq.m. Ages 60-69 = 85 mL/min/1.73 sq.m. Ages 70+ = 75 mL/min/1.73 sq.m.Chronic Kidney Disease: Less than 60 mL/min/1.73 square metersEnd Stage Renal Disease: Less than 15 mL/min/1.73 square meters Performed By: #### G FR, ANEU, CBC, ADIFF, BMP, PRO ####[place] [address] .NEUABSon 10-11-2022 Neutrophil, Absolute 5.3 10 3/mcL Normal 2.3-8.1 [facility] ([place] Comment on above: Performed By: #### G FR, ANEU, CBC, ADIFF, BMP, PRO ####[place] [address] APTTon 10-11-2022 aPTT Coag (Bld) [Time] 49.9 s High 25.0-35.0 [facility] ([place]) Comment on above: Result Comment: For Heparin anticoagulation therapy, the recommendedtherapeutic range is: 54-77 seconds (APTT Correlationwith Anti-Xa therapeutic range of 0.3-0.7 units/ml).PLEASE REFERENCE THE PHARMACY PROTOCOL FOR DOSING. Performed By: #### A PTT ####[place] [address] Heparin dose (APTT) Heparin IV [facility] ([place]) Comment on above: Performed By: #### A PTT ####[place] [address] aPTT Coag (Bld) [Time] 43.1 s High 25.0-35.0 [facility] ([place] Comment on above: Result Comment: For Heparin anticoagulation therapy, the recommendedtherapeutic range is: 54-77 seconds (APTT Correlationwith Anti-Xa therapeutic range of 0.3-0.7 units/ml).PLEASE REFERENCE THE PHARMACY PROTOCOL FOR DOSING. Performed By: #### A PTT ####[place] [address] Heparin dose (APTT) Heparin IV [facility] ([place] Comment on above: Performed By: #### A PTT ####[place] [address] aPTT Coag (Bld) [Time] 72.0 s High 25.0-35.0 [facility] ([place] Comment on above: Result Comment: For Heparin anticoagulation therapy, the recommendedtherapeutic range is: 54-77 seconds (APTT Correlationwith Anti-Xa therapeutic range of 0.3-0.7 units/ml).PLEASE REFERENCE THE PHARMACY PROTOCOL FOR DOSING. Performed By: #### A PTT ####[place] [address] Heparin dose (APTT) Heparin IV [facility] ([place]) Comment on above: Performed By: #### A PTT ####[place] [id number] BMPon 10-11-2022 BUN/Creatinine Ratio 21.2 ratio Normal 10.0-22.0 [facility] ([place]) Comment on above: Order Comment: Speci men grossly hemolyzed. Recollect is needed. called to nakul lira rn 10/11/2022 03:26:13 EDT Performed By: #### G FR, ANEU, CBC, ADIFF, BMP, PRO ####[facility] [place] [address] Calcium [Mass/Vol] 7.1 mg/dL Low 8.7-10.4 [facility] ([place]) Comment on above: Order Comment: Speci men grossly hemolyzed. Recollect is needed. called to nakul lira rn 10/11/2022 03:26:13 EDT Performed By: #### G FR, ANEU, CBC, ADIFF, BMP, PRO ####[facility] [place] [address] Chloride [Moles/Vol] 111 mmol/L High 98-110 [facility] ([place]) Comment on above: Order Comment: Speci men grossly hemolyzed. Recollect is needed. called to nakul lira rn 10/11/2022 03:26:13 EDT Performed By: #### G FR, ANEU, CBC, ADIFF, BMP, PRO ####[facility] [place] [id number] CO2 [Moles/Vol] 27 mmol/L Normal 22-32 [facility] ([place] Comment on above: Order Comment: Speci men grossly hemolyzed. Recollect is needed. called to nakul lira rn 10/11/2022 03:26:13 EDT Performed By: #### G FR, ANEU, CBC, ADIFF, BMP, PRO ####[facility] [place] [id number] Creatinine [Mass/Vol] 0.85 mg/dL Normal 0.50-1.20 [facility] ([place]) Comment on above: Order Comment: Speci men grossly hemolyzed. Recollect is needed. called to nakul lira rn 10/11/2022 03:26:13 EDT Performed By: #### G FR, ANEU, CBC, ADIFF, BMP, PRO ####[facility] [place] [id number] Electrolyte Balance 6.0 mEq/L Normal 4.0-15.0 [facility] ([place] Comment on above: Order Comment: Speci men grossly hemolyzed. Recollect is needed. called to nakul lira rn 10/11/2022 03:26:13 EDT Performed By: #### G FR, ANEU, CBC, ADIFF, BMP, PRO ####[place] [id number] [place] [address] Glucose [Mass/Vol] 118 mg/dL High 82-115 [facility] ([place]) Comment on above: Order Comment: Speci men grossly hemolyzed. Recollect is needed. called to nakul lira rn 10/11/2022 03:26:13 EDT Performed By: #### G FR, ANEU, CBC, ADIFF, BMP, PRO ####[address] [address] Potassium [Moles/Vol] 3.1 mmol/L Low 3.5-5.0 [facility] ([place]) Comment on above: Order Comment: Speci men grossly hemolyzed. Recollect is needed. called to nakul lira rn 10/11/2022 03:26:13 EDT Performed By: #### G FR, ANEU, CBC, ADIFF, BMP, PRO ####[place] [id number] [place] [id number] Sodium [Moles/Vol] 144 mmol/L Normal 136-145 [facility] ([place] Comment on above: Order Comment: Speci men grossly hemolyzed. Recollect is needed. called to nakul lira rn 10/11/2022 03:26:13 EDT Performed By: #### G FR, ANEU, CBC, ADIFF, BMP, PRO ####[place] [id number] [place] [id number] Urea nitrogen [Mass/Vol] 18.0 mg/dL Normal 8.0-22.0 [facility] ([place]) Comment on above: Order Comment: Speci men grossly hemolyzed. Recollect is needed. called to nakul lira rn 10/11/2022 03:26:13 EDT Performed By: #### G FR, ANEU, CBC, ADIFF, BMP, PRO ####[address] [address] CBCon 10-11-2022 Erythrocyte distribution width (RBC) [Ratio] 15.6 % High 11.5-15.5 [facility] ([place]) Comment on above: Order Comment: recol lect checking results notified Kaylee Goode RN 10/11/2022 03:36:42 EDT Performed By: #### G FR, ANEU, CBC, ADIFF, BMP, PRO ####[address] [address] Hematocrit (Bld) [Volume fraction] 35.9 % Normal 34.0-46.0 [facility] ([place]) Comment on above: Order Comment: recol lect checking results notified Kaylee Goode RN 10/11/2022 03:36:42 EDT Performed By: #### G FR, ANEU, CBC, ADIFF, BMP, PRO ####[place] [address] Hgb 11.9 G/dL Low 12.0-16.0 [facility] ([place]) Comment on above: Order Comment: recol lect checking results notified Kaylee Goode RN 10/11/2022 03:36:42 EDT Performed By: #### G FR, ANEU, CBC, ADIFF, BMP, PRO ####[address] [address] MCH (RBC) [Entitic mass] 27.8 pg Normal 27.0-33.0 [facility] ([place]) Comment on above: Order Comment: recol lect checking results notified Kaylee Goode RN 10/11/2022 03:36:42 EDT Performed By: #### G FR, ANEU, CBC, ADIFF, BMP, PRO ####[place] [address] MCHC 33.2 G/dL Normal 32.0-36.0 [facility] ([place]) Comment on above: Order Comment: recol lect checking results notified Kaylee Goode RN 10/11/2022 03:36:42 EDT Performed By: #### G FR, ANEU, CBC, ADIFF, BMP, PRO ####[address] [address] MCV (RBC) [Entitic vol] 83.8 fL Normal 80.0-99.0 [facility] ([place]) Comment on above: Order Comment: recol lect checking results notified Kaylee Goode RN 10/11/2022 03:36:42 EDT Performed By: #### G FR, ANEU, CBC, ADIFF, BMP, PRO ####[address] [address] Platelet 240 10 3/mcL Normal 150-450 [facility] ([place]) Comment on above: Order Comment: recol lect checking results notified Kaylee Goode RN 10/11/2022 03:36:42 EDT Performed By: #### G FR, ANEU, CBC, ADIFF, BMP, PRO ####[address] [address] Platelet mean volume (Bld) [Entitic vol] 8.9 fL Normal 6.6-10.5 [facility] ([place]) Comment on above: Order Comment: recol lect checking results notified Kaylee Goode RN 10/11/2022 03:36:42 EDT Performed By: #### G FR, ANEU, CBC, ADIFF, BMP, PRO ####[address] [address] RBC 4.29 10 6/mcL Normal 4.10-5.30 [facility] ([place]) Comment on above: Order Comment: recol lect checking results notified Kaylee Goode RN 10/11/2022 03:36:42 EDT Performed By: #### G FR, ANEU, CBC, ADIFF, BMP, PRO ####[address] [address] WBC 8.8 10 3/mcL Normal 4.5-10.8 [facility] ([place]) Comment on above: Order Comment: recol lect checking results notified Kaylee Goode RN 10/11/2022 03:36:42 EDT Performed By: #### G FR, ANEU, CBC, ADIFF, BMP, PRO ####[place] [id number] [place] [address] LABORATORYOrdered By: Sapna Hernandez on 10-11-2022 aPTT Coag (PPP) [Time] 49.9 s Invalid Interpretation Code 25.0 - 35.0 seconds AH Auto Coag SS Comment on above: Interpretive Data: F or Heparin anticoagulation therapy, the recommended therapeutic range is: 54-77 seconds (APTT Correlation with Anti-Xa therapeutic range of 0.3-0.7 units/ml). PLEASE REFERENCE THE PHARMACY PROTOCOL FOR DOSING. Heparin dose (APTT) Heparin IV (10/11/22 8:33 PM) Invalid Interpretation Code AH Auto Coag SS LABORATORYOrdered By: SYSTEM SYSTEM on 10-11-2022 Basophils (Bld) [#/Vol] 0.1 103/mcL Invalid Interpretation Code 0.0 - 0.3 10^3/mcL AH Workflow SS Basophils/100 WBC (Bld) 1.4 % Invalid Interpretation Code 0.0 - 2.5 % AH Workflow SS Eosinophils (Bld) [#/Vol] 0.2 103/mcL Invalid Interpretation Code 0.0 - 0.7 10^3/mcL AH Workflow SS Eosinophils/100 WBC (Bld) 2.4 % Invalid Interpretation Code 0.0 - 6.0 % AH Workflow SS Erythrocyte distribution width (RBC) [Ratio] 15.6 % Invalid Interpretation Code 11.5 - 15.5 % AH Workflow SS Hematocrit (Bld) [Volume fraction] 35.9 % Invalid Interpretation Code 34.0 - 46.0 % AH Workflow SS Hemoglobin (Bld) [Mass/Vol] 11.9 G/dL Invalid Interpretation Code 12.0 - 16.0 G/dL AH Workflow SS Lymphocytes (Bld) [#/Vol] 2.3 103/mcL Invalid Interpretation Code 0.9 - 4.3 10^3/mcL AH Workflow SS Lymphocytes/100 WBC (Bld) 26.7 % Invalid Interpretation Code 20.0 - 40.0 % AH Workflow SS MCH (RBC) [Entitic mass] 27.8 pg Invalid Interpretation Code 27.0 - 33.0 pg AH Workflow SS MCHC 33.2 G/dL Invalid Interpretation Code 32.0 - 36.0 G/dL AH Workflow SS MCV (RBC) [Entitic vol] 83.8 fL Invalid Interpretation Code 80.0 - 99.0 fL AH Workflow SS Monocytes (Bld) [#/Vol] 0.7 103/mcL Invalid Interpretation Code 0.1 - 1.4 10^3/mcL AH Workflow SS Monocytes/100 WBC (Bld) 8.5 % Invalid Interpretation Code 2.0 - 13.0 % AH Workflow SS Neutrophils (Bld) [#/Vol] 5.3 103/mcL Invalid Interpretation Code 2.3 - 8.1 10^3/mcL AH Workflow SS Neutrophils/100 WBC (Bld) 61.0 % Invalid Interpretation Code 50.0 - 75.0 % AH Workflow SS Platelet mean volume (Bld) [Entitic vol] 8.9 fL Invalid Interpretation Code 6.6 - 10.5 fL Workflow SS Platelets (Bld) [#/Vol] 240 103/mcL Invalid Interpretation Code 150 - 450 10^3/mcL AH Workflow SS RBC (Bld) [#/Vol] 4.29 106/mcL Invalid Interpretation Code 4.10 - 5.30 10^6/mcL AH Workflow SS WBC (Bld) [#/Vol] 8.8 103/mcL Invalid Interpretation Code 4.5 - 10.8 10^3/mcL AH Workflow SS Calcium [Mass/Vol] 7.1 mg/dL Invalid Interpretation Code 8.7 - 10.4 mg/dL ADM SS Chloride [Moles/Vol] 111 mmol/L Invalid Interpretation Code 98 - 110 mEq/L ADM SS CO2 [Moles/Vol] 27 mmol/L Invalid Interpretation Code 22 - 32 mEq/L ADM SS Creatinine [Mass/Vol] 0.85 mg/dL Invalid Interpretation Code 0.50 - 1.20 mg/dL ADM SS Electrolyte Balance 6.0 mEq/L Invalid Interpretation Code 4.0 - 15.0 mEq/L ADM SS GFR/1.73 sq M.predicted among blacks MDRD (S/P/Bld) [Vol rate/Area] ml/min/1.73sqm Invalid Interpretation Code Chemistry S Comment on above: Interpretive Data: GFR Population mean for , Non- Americans Ages 20-29 = 116 mL/min/1.73 sq.m. Ages 30-39 = 107 mL/min/1.73 sq.m. Ages 40-49 = 99 mL/min/1.73 sq.m. Ages 50-59 = 93 mL/min/1.73 sq.m. Ages 60-69 = 85 mL/min/1.73 sq.m. Ages 70+ = 75 mL/min/1.73 sq.m. Chronic Kidney Disease: Less than 60 mL/min/1.73 square meters End Stage Renal Disease: Less than 15 mL/min/1.73 square meters GFR/1.73 sq M.predicted among non-blacks MDRD (S/P/Bld) [Vol rate/Area] ml/min/1.73sqm Invalid Interpretation Code Chemistry S Comment on above: Interpretive Data: GFR Population mean for , Non- Americans Ages 20-29 = 116 mL/min/1.73 sq.m. Ages 30-39 = 107 mL/min/1.73 sq.m. Ages 40-49 = 99 mL/min/1.73 sq.m. Ages 50-59 = 93 mL/min/1.73 sq.m. Ages 60-69 = 85 mL/min/1.73 sq.m. Ages 70+ = 75 mL/min/1.73 sq.m. Chronic Kidney Disease: Less than 60 mL/min/1.73 square meters End Stage Renal Disease: Less than 15 mL/min/1.73 square meters Glucose [Mass/Vol] 118 mg/dL Invalid Interpretation Code 82 - 115 mg/dL ADM SS Potassium [Moles/Vol] 3.1 mmol/L Invalid Interpretation Code 3.5 - 5.0 mEq/L ADM SS Sodium [Moles/Vol] 144 mmol/L Invalid Interpretation Code 136 - 145 mEq/L ADM SS Urea nitrogen [Mass/Vol] 18.0 mg/dL Invalid Interpretation Code 8.0 - 22.0 mg/dL ADM SS Urea nitrogen/Creatinine [Mass ratio] 21.2 ratio Invalid Interpretation Code 10.0 - 22.0 ratio ADM SS PROon 10-11-2022 INR Coag (PPP) [Relative time] 1.4 {INR} Normal [facility] ([place]) Comment on above: Order Comment: recol lect hemolyzed notified Kaylee Goode 10/11/2022 03:36:13 EDT Result Comment: [employer] (CHEST, 1992, 102:312S-25S)recommended therapeutic range for oral anticoagulant therapy is:LOW RISK: Prophylaxis of venous thrombosis INR: 2.0-3.0 Treatment of pulmonary embolism 2.0-3.0 Prevention of systemic embolism 2.0-3.0HIGH RISK: Mechanical prosthetic valves 2.5-3.5 Performed By: #### G FR, ANEU, CBC, ADIFF, BMP, PRO ####[address] [address] PT Coag (PPP) [Time] 16.8 s High 9.0-14.8 [facility] ([place]) Comment on above: Order Comment: recol lect hemolyzed notified Kaylee Goode 10/11/2022 03:36:13 EDT Result Comment: Effe ctive 10/03/07, Protime results may be affected by some antibiotics (i.e. Ciprofloxacin, Azithromycin, Bactrim) which may potentiate the action of oral anticoagulants, with further increases in Protime/INR. Performed By: #### G FR, ANEU, CBC, ADIFF, BMP, PRO ####[address] [address] APTTon 10-10-2022 aPTT Coag (Bld) [Time] 49.0 s High 25.0-35.0 [facility] ([place]) Comment on above: Result Comment: For Heparin anticoagulation therapy, the recommendedtherapeutic range is: 54-77 seconds (APTT Correlationwith Anti-Xa therapeutic range of 0.3-0.7 units/ml).PLEASE REFERENCE THE PHARMACY PROTOCOL FOR DOSING. Performed By: #### A PTT ####[address] [address] Heparin dose (APTT) Heparin IV Normal [facility] ([place]) Comment on above: Performed By: #### A PTT ####[address] [address] aPTT Coag (Bld) [Time] 45.2 s High 25.0-35.0 [facility] ([place] Comment on above: Result Comment: For Heparin anticoagulation therapy, the recommendedtherapeutic range is: 54-77 seconds (APTT Correlationwith Anti-Xa therapeutic range of 0.3-0.7 units/ml).PLEASE REFERENCE THE PHARMACY PROTOCOL FOR DOSING. Performed By: #### A PTT ####[address] [address] Heparin dose (APTT) Heparin IV Normal [facility] ([place] Comment on above: Performed By: #### A PTT ####[place] [id number] aPTT Coag (Bld) [Time] 76.3 s High 25.0-35.0 [facility] ([place] Comment on above: Result Comment: For Heparin anticoagulation therapy, the recommendedtherapeutic range is: 54-77 seconds (APTT Correlationwith Anti-Xa therapeutic range of 0.3-0.7 units/ml).PLEASE REFERENCE THE PHARMACY PROTOCOL FOR DOSING. Performed By: #### P RO, APTT ####[place] [address] Heparin dose (APTT) Heparin IV Normal [facility] ([place] Comment on above: Performed By: #### P RO, APTT ####[place] [id number] PROon 10-10-2022 INR Coag (PPP) [Relative time] 1.2 {INR} Normal [facility] ([place] Comment on above: Result Comment: [employer] (CHEST, 1992, 102:312S-25S)recommended therapeutic range for oral anticoagulant therapy is:LOW RISK: Prophylaxis of venous thrombosis INR: 2.0-3.0 Treatment of pulmonary embolism 2.0-3.0 Prevention of systemic embolism 2.0-3.0HIGH RISK: Mechanical prosthetic valves 2.5-3.5 Performed By: #### P RO, APTT ####[place] [id number] PT Coag (PPP) [Time] 14.2 s Normal 9.0-14.8 [facility] ([place]) Comment on above: Result Comment: Effe ctive 10/03/07, Protime results may be affected by some antibiotics (i.e. Ciprofloxacin, Azithromycin, Bactrim) which may potentiate the action of oral anticoagulants, with further increases in Protime/INR. Performed By: #### P RO, APTT ####[address] [address] .Auto Diffon 10-09-2022 Basophil, Absolute 0.1 10 3/mcL Normal 0.0-0.3 [facility] ([place]) Comment on above: Performed By: #### A SAMEER, ADIFF, PRO, CBC ####[address] [address] Basophils/100 WBC (Bld) 1.3 % Normal 0.0-2.5 [facility] ([place]) Comment on above: Performed By: #### A SAMEER, ADIFF, PRO, CBC ####[address] [address] Eosinophil, Absolute 0.2 10 3/mcL Normal 0.0-0.7 [facility] ([place]) Comment on above: Performed By: #### A SAMEER, ADIFF, PRO, CBC ####[address] [address] Eosinophils/100 WBC (Bld) 2.8 % Normal 0.0-6.0 [facility] ([place]) Comment on above: Performed By: #### A SAMEER, ADIFF, PRO, CBC ####[address] [address] Lymphocyte, Absolute 2.3 10 3/mcL Normal 0.9-4.3 [facility] ([place]) Comment on above: Performed By: #### A SAMEER, ADIFF, PRO, CBC ####[address] [address] Lymphocytes/100 WBC (Bld) 36.3 % Normal 20.0-40.0 [facility] ([place]) Comment on above: Performed By: #### A SAMEER, ADIFF, PRO, CBC ####[address] [address] Monocyte, Absolute 0.6 10 3/mcL Normal 0.1-1.4 [facility] ([place] Comment on above: Performed By: #### A SAMEER, ADIFF, PRO, CBC ####[address] [address] Monocytes/100 WBC (Bld) 9.6 % Normal 2.0-13.0 [facility] ([place] Comment on above: Performed By: #### A SAMEERBHARGAV PRO, CBC ####[place] [address] Neutrophils/100 WBC (Bld) 50.0 % Normal 50.0-75.0 [facility] ([place] Comment on above: Performed By: #### A SAMEERBHARGAV PRO, CBC ####[place] [address] .NEUABSon 10-09-2022 Neutrophil, Absolute 3.1 10 3/mcL Normal 2.3-8.1 [facility] ([place] Comment on above: Performed By: #### A BHARGAV ESTRELLA PRO, CBC ####[place] [address] APTTon 10-09-2022 aPTT Coag (Bld) [Time] 62.9 s High 25.0-35.0 [facility] ([place] Comment on above: Result Comment: For Heparin anticoagulation therapy, the recommendedtherapeutic range is: 54-77 seconds (APTT Correlationwith Anti-Xa therapeutic range of 0.3-0.7 units/ml).PLEASE REFERENCE THE PHARMACY PROTOCOL FOR DOSING. Performed By: #### A PTT ####[place] [address] Heparin dose (APTT) Heparin IV Normal [facility] ([place] Comment on above: Performed By: #### A PTT ####[place] [address] aPTT Coag (Bld) [Time] 63.8 s High 25.0-35.0 [facility] ([place] Comment on above: Result Comment: For Heparin anticoagulation therapy, the recommendedtherapeutic range is: 54-77 seconds (APTT Correlationwith Anti-Xa therapeutic range of 0.3-0.7 units/ml).PLEASE REFERENCE THE PHARMACY PROTOCOL FOR DOSING. Performed By: #### A PTT ####[place] [address] Heparin dose (APTT) Heparin IV Normal [facility] ([place] Comment on above: Performed By: #### A PTT ####[place] [address] aPTT Coag (Bld) [Time] 42.1 s High 25.0-35.0 [facility] ([place] Comment on above: Result Comment: For Heparin anticoagulation therapy, the recommendedtherapeutic range is: 54-77 seconds (APTT Correlationwith Anti-Xa therapeutic range of 0.3-0.7 units/ml).PLEASE REFERENCE THE PHARMACY PROTOCOL FOR DOSING. Performed By: #### A PTT ####[place] [address] Heparin dose (APTT) Heparin IV Normal [facility] ([place] Comment on above: Performed By: #### A PTT ####[place] [address] aPTT Coag (Bld) [Time] 36.7 s High 25.0-35.0 [facility] ([place] Comment on above: Result Comment: For Heparin anticoagulation therapy, the recommendedtherapeutic range is: 54-77 seconds (APTT Correlationwith Anti-Xa therapeutic range of 0.3-0.7 units/ml).PLEASE REFERENCE THE PHARMACY PROTOCOL FOR DOSING. Performed By: #### A PTT ####[place] [address] Heparin dose (APTT) Heparin IV Normal [facility] ([place] Comment on above: Performed By: #### A PTT ####[place] [address] CBCon 10-09-2022 Erythrocyte distribution width (RBC) [Ratio] 15.2 % Normal 11.5-15.5 [facility] ([place] Comment on above: Performed By: #### A SAMEERBHARGAV PRO, CBC ####[place] [address] Hematocrit (Bld) [Volume fraction] 38.9 % Normal 34.0-46.0 [facility] ([place] Comment on above: Performed By: #### A SAMEERBHARGAV PRO, CBC ####[place] [address] Hgb 12.7 G/dL Normal 12.0-16.0 [facility] ([place] Comment on above: Performed By: #### A BHARGAV ESTRELLA, PRO, CBC ####[place] [address] MCH (RBC) [Entitic mass] 27.4 pg Normal 27.0-33.0 [facility] ([place] Comment on above: Performed By: #### A BHARGAV ESTRELLA, PRO, CBC ####[place] [address] MCHC 32.6 G/dL Normal 32.0-36.0 [facility] ([place] Comment on above: Performed By: #### A BHARGAV ESTRELLA, PRO, CBC ####[place] [address] MCV (RBC) [Entitic vol] 83.8 fL Normal 80.0-99.0 [facility] ([place] Comment on above: Performed By: #### A SAMEER ADIFF, PRO, CBC ####[place] [address] Platelet 248 10 3/mcL Normal 150-450 [facility] ([place] Comment on above: Performed By: #### A BHARGAV ESTRELLA, PRO, CBC ####[place] [address] Platelet mean volume (Bld) [Entitic vol] 8.4 fL Normal 6.6-10.5 [facility] ([place] Comment on above: Performed By: #### A SAMEER ADIFF, PRO, CBC ####[place] [address] RBC 4.64 10 6/mcL Normal 4.10-5.30 [facility] ([place] Comment on above: Performed By: #### A SAMEER, ADIFF, PRO, CBC ####[place] [address] WBC 6.3 10 3/mcL Normal 4.5-10.8 [facility] ([place] Comment on above: Performed By: #### A SAMEER ADIFF, PRO, CBC ####[place] [id number] [place] [address] PROon 10-09-2022 INR Coag (PPP) [Relative time] 1.0 {INR} Normal [facility] ([place]) Comment on above: Result Comment: [employer] (CHEST, 1991, 102:312S-25S)recommended therapeutic range for oral anticoagulant therapy is:LOW RISK: Prophylaxis of venous thrombosis INR: 2.0-3.0 Treatment of pulmonary embolism 2.0-3.0 Prevention of systemic embolism 2.0-3.0HIGH RISK: Mechanical prosthetic valves 2.5-3.5 Performed By: #### A BHARGAV ESTRELLA PRO, CBC ####[address] [address] PT Coag (PPP) [Time] 12.3 s Normal 9.0-14.8 [facility] ([place]) Comment on above: Result Comment: Effe ctive 10/03/07, Protime results may be affected by some antibiotics (i.e. Ciprofloxacin, Azithromycin, Bactrim) which may potentiate the action of oral anticoagulants, with further increases in Protime/INR. Performed By: #### A BHARGAV ESTRELLA, PRO, CBC ####[place] [address] APTTon 10-08-2022 aPTT Coag (Bld) [Time] 90.2 s High 25.0-35.0 [facility] ([place] Comment on above: Result Comment: For Heparin anticoagulation therapy, the recommendedtherapeutic range is: 54-77 seconds (APTT Correlationwith Anti-Xa therapeutic range of 0.3-0.7 units/ml).PLEASE REFERENCE THE PHARMACY PROTOCOL FOR DOSING. Performed By: #### A PTT ####[address] [address] Heparin dose (APTT) Heparin IV Normal [facility] ([place] Comment on above: Performed By: #### A PTT ####[address] [address] aPTT Coag (Bld) [Time] 69.2 s High 25.0-35.0 [facility] ([place] Comment on above: Result Comment: For Heparin anticoagulation therapy, the recommendedtherapeutic range is: 54-77 seconds (APTT Correlationwith Anti-Xa therapeutic range of 0.3-0.7 units/ml).PLEASE REFERENCE THE PHARMACY PROTOCOL FOR DOSING. Performed By: #### A PTT ####[place] [address] Heparin dose (APTT) Heparin IV Normal [facility] ([place] Comment on above: Performed By: #### A PTT ####[place] [address] aPTT Coag (Bld) [Time] 36.2 s High 25.0-35.0 [facility] ([place] Comment on above: Result Comment: For Heparin anticoagulation therapy, the recommendedtherapeutic range is: 54-77 seconds (APTT Correlationwith Anti-Xa therapeutic range of 0.3-0.7 units/ml).PLEASE REFERENCE THE PHARMACY PROTOCOL FOR DOSING. Performed By: #### A PTT ####[place] [address] Heparin dose (APTT) Heparin IV Normal [facility] ([place] Comment on above: Performed By: #### A PTT ####[place] [address] aPTT Coag (Bld) [Time] 62.2 s High 25.0-35.0 [facility] ([place] Comment on above: Result Comment: For Heparin anticoagulation therapy, the recommendedtherapeutic range is: 54-77 seconds (APTT Correlationwith Anti-Xa therapeutic range of 0.3-0.7 units/ml).PLEASE REFERENCE THE PHARMACY PROTOCOL FOR DOSING. Performed By: #### A PTT ####[place] [address] Heparin dose (APTT) Heparin IV Normal [facility] [place] Comment on above: Performed By: #### A PTT ####[place] [address] .Auto Diffon 10-07-2022 Basophil, Absolute 0.0 10 3/mcL Normal 0.0-0.3 [facility] ([place]) Comment on above: Performed By: #### B MP, ADIFF, ANEU, GFR, PRO, CBC, APTT ####[address] [address] Basophils/100 WBC (Bld) 0.7 % Normal 0.0-2.5 [facility] ([place]) Comment on above: Performed By: #### B MP, ADIFF, ANEU, GFR, PRO, CBC, APTT ####[address] [address] Eosinophil, Absolute 0.2 10 3/mcL Normal 0.0-0.7 [facility] ([place] Comment on above: Performed By: #### B MP, ADIFF, ANEU, GFR, PRO, CBC, APTT ####[address] [address] Eosinophils/100 WBC (Bld) 2.4 % Normal 0.0-6.0 [facility] ([place] Comment on above: Performed By: #### B MP, ADIFF, ANEU, GFR, PRO, CBC, APTT ####[address] [address] Lymphocyte, Absolute 2.2 10 3/mcL Normal 0.9-4.3 [facility] ([place] Comment on above: Performed By: #### B MP, ADIFF, ANEU, GFR, PRO, CBC, APTT ####[address] [address] Lymphocytes/100 WBC (Bld) 31.6 % Normal 20.0-40.0 [facility] ([place] Comment on above: Performed By: #### B MP, ADIFF, ANEU, GFR, PRO, CBC, APTT ####[address] [address] Monocyte, Absolute 0.8 10 3/mcL Normal 0.1-1.4 [facility] ([place] Comment on above: Performed By: #### B MP, ADIFF, ANEU, GFR, PRO, CBC, APTT ####[address] [address] Monocytes/100 WBC (Bld) 11.4 % Normal 2.0-13.0 [facility] ([place] Comment on above: Performed By: #### B MP, ADIFF, ANEU, GFR, PRO, CBC, APTT ####[address] [address] Neutrophils/100 WBC (Bld) 53.9 % Normal 50.0-75.0 [facility] ([place] Comment on above: Performed By: #### B MP, ADIFF, ANEU, GFR, PRO, CBC, APTT ####[address] [address] .GFRon 10-07-2022 GFR Non- >60 Normal [facility] ([place]) Comment on above: Result Comment: GFR Population mean for , Non- Americans Ages 20-29 = 116 mL/min/1.73 sq.m. Ages 30-39 = 107 mL/min/1.73 sq.m. Ages 40-49 = 99 mL/min/1.73 sq.m. Ages 50-59 = 93 mL/min/1.73 sq.m. Ages 60-69 = 85 mL/min/1.73 sq.m. Ages 70+ = 75 mL/min/1.73 sq.m.Chronic Kidney Disease: Less than 60 mL/min/1.73 square metersEnd Stage Renal Disease: Less than 15 mL/min/1.73 square meters Performed By: #### B MP, ADIFF, ANEU, GFR, PRO, CBC, APTT ####[address] [address] GFR >60 Normal [facility] ([place]) Comment on above: Result Comment: GFR Population mean for , Non- Americans Ages 20-29 = 116 mL/min/1.73 sq.m. Ages 30-39 = 107 mL/min/1.73 sq.m. Ages 40-49 = 99 mL/min/1.73 sq.m. Ages 50-59 = 93 mL/min/1.73 sq.m. Ages 60-69 = 85 mL/min/1.73 sq.m. Ages 70+ = 75 mL/min/1.73 sq.m.Chronic Kidney Disease: Less than 60 mL/min/1.73 square metersEnd Stage Renal Disease: Less than 15 mL/min/1.73 square meters Performed By: #### B MP, ADIFF, ANEU, GFR, PRO, CBC, APTT ####[place] [address] .NEUABSon 10-07-2022 Neutrophil, Absolute 3.7 10 3/mcL Normal 2.3-8.1 [facility] [place] Comment on above: Performed By: #### B MP, ADIFF, ANEU, GFR, PRO, CBC, APTT ####[place] [address] APTTon 10-07-2022 aPTT Coag (Bld) [Time] 51.1 s High 25.0-35.0 [facility] ([place]) Comment on above: Result Comment: For Heparin anticoagulation therapy, the recommendedtherapeutic range is: 54-77 seconds (APTT Correlationwith Anti-Xa therapeutic range of 0.3-0.7 units/ml).PLEASE REFERENCE THE PHARMACY PROTOCOL FOR DOSING. Performed By: #### A PTT ####[place] [address] Heparin dose (APTT) Heparin IV Normal [facility] ([place] Comment on above: Performed By: #### A PTT ####[place] [address] aPTT Coag (Bld) [Time] 86.0 s High 25.0-35.0 [facility] ([place] Comment on above: Result Comment: For Heparin anticoagulation therapy, the recommendedtherapeutic range is: 54-77 seconds (APTT Correlationwith Anti-Xa therapeutic range of 0.3-0.7 units/ml).PLEASE REFERENCE THE PHARMACY PROTOCOL FOR DOSING. Performed By: #### B MP, ADIFF, ANEU, GFR, PRO, CBC, APTT ####[place] [address] Heparin dose (APTT) Heparin IV Normal [facility] ([place] Comment on above: Performed By: #### B MP, ADIFF, ANEU, GFR, PRO, CBC, APTT ####[place] [address] BMPon 10-07-2022 BUN/Creatinine Ratio 23.1 ratio High 10.0-22.0 [facility] ([place]) Comment on above: Performed By: #### B MP, ADIFF, ANEU, GFR, PRO, CBC, APTT ####[place] [address] Calcium [Mass/Vol] 8.0 mg/dL Low 8.7-10.4 [facility] ([place]) Comment on above: Performed By: #### B MP, ADIFF, ANEU, GFR, PRO, CBC, APTT ####[place] [address] Chloride [Moles/Vol] 103 mmol/L Normal 98-110 [facility] ([place] Comment on above: Performed By: #### B MP, ADIFF, ANEU, GFR, PRO, CBC, APTT ####[place] [address] CO2 [Moles/Vol] 31 mmol/L Normal 22-32 [facility] ([place] Comment on above: Performed By: #### B MP, ADIFF, ANEU, GFR, PRO, CBC, APTT ####[place] [address] Creatinine [Mass/Vol] 0.91 mg/dL Normal 0.50-1.20 [facility] ([place] Comment on above: Performed By: #### B MP, ADIFF, ANEU, GFR, PRO, CBC, APTT ####[place] [address] Electrolyte Balance 3.0 mEq/L Low 4.0-15.0 [facility] ([place] Comment on above: Performed By: #### B MP, ADIFF, ANEU, GFR, PRO, CBC, APTT ####[place] [address] Glucose [Mass/Vol] 133 mg/dL High 82-115 [facility] ([place]) Comment on above: Performed By: #### B MP, ADIFF, ANEU, GFR, PRO, CBC, APTT ####[place] [address] Potassium [Moles/Vol] 4.5 mmol/L Normal 3.5-5.0 [facility] ([place]) Comment on above: Performed By: #### B MP, ADIFF, ANEU, GFR, PRO, CBC, APTT ####[place] [address] Sodium [Moles/Vol] 137 mmol/L Normal 136-145 [facility] ([place]) Comment on above: Performed By: #### B MP, ADIFF, ANEU, GFR, PRO, CBC, APTT ####[place] [address] Urea nitrogen [Mass/Vol] 21.0 mg/dL Normal 8.0-22.0 [facility] ([place]) Comment on above: Performed By: #### B MP, ADIFF, ANEU, GFR, PRO, CBC, APTT ####[place] [address] CBCon 10-07-2022 Erythrocyte distribution width (RBC) [Ratio] 15.0 % Normal 11.5-15.5 [facility] ([place]) Comment on above: Performed By: #### B MP, ADIFF, ANEU, GFR, PRO, CBC, APTT ####[place] [address] Hematocrit (Bld) [Volume fraction] 42.6 % Normal 34.0-46.0 [facility] ([place]) Comment on above: Performed By: #### B MP, ADIFF, ANEU, GFR, PRO, CBC, APTT ####[place] [address] Hgb 14.0 G/dL Normal 12.0-16.0 [facility] ([place] Comment on above: Performed By: #### B MP, ADIFF, ANEU, GFR, PRO, CBC, APTT ####[place] [address] MCH (RBC) [Entitic mass] 27.6 pg Normal 27.0-33.0 [facility] ([place] Comment on above: Performed By: #### B MP, ADIFF, ANEU, GFR, PRO, CBC, APTT ####[place] [address] MCHC 32.8 G/dL Normal 32.0-36.0 [facility] ([place] Comment on above: Performed By: #### B MP, ADIFF, ANEU, GFR, PRO, CBC, APTT ####[place] [address] MCV (RBC) [Entitic vol] 84.1 fL Normal 80.0-99.0 [facility] ([place] Comment on above: Performed By: #### B MP, ADIFF, ANEU, GFR, PRO, CBC, APTT ####[place] [address] Platelet 252 10 3/mcL Normal 150-450 [facility] ([place] Comment on above: Performed By: #### B MP, ADIFF, ANEU, GFR, PRO, CBC, APTT ####[place] [address] Platelet mean volume (Bld) [Entitic vol] 9.0 fL Normal 6.6-10.5 [facility] ([place] Comment on above: Performed By: #### B MP, ADIFF, ANEU, GFR, PRO, CBC, APTT ####[place] [address] RBC 5.06 10 6/mcL Normal 4.10-5.30 [facility] ([place] Comment on above: Performed By: #### B MP, ADIFF, ANEU, GFR, PRO, CBC, APTT ####[place] [address] WBC 6.8 10 3/mcL Normal 4.5-10.8 [facility] ([place] Comment on above: Performed By: #### B MP, ADIFF, ANEU, GFR, PRO, CBC, APTT ####[place] [address] CBLon 10-07-2022 CBL Normal [facility] ([place] CBL Normal [facility] [place] PROon 10-07-2022 INR Coag (PPP) [Relative time] 1.0 {INR} Normal [facility] ([place]) Comment on above: Result Comment: [employer] (CHEST, 1992, 102:312S-25S)recommended therapeutic range for oral anticoagulant therapy is:LOW RISK: Prophylaxis of venous thrombosis INR: 2.0-3.0 Treatment of pulmonary embolism 2.0-3.0 Prevention of systemic embolism 2.0-3.0HIGH RISK: Mechanical prosthetic valves 2.5-3.5 Performed By: #### B MP, ADIFF, ANEU, GFR, PRO, CBC, APTT ####[place] [id number] [address] [place] [id number] PT Coag (PPP) [Time] 11.7 s Normal 9.0-14.8 [facility] ([place]) Comment on above: Result Comment: Effe ctive 10/03/07, Protime results may be affected by some antibiotics (i.e. Ciprofloxacin, Azithromycin, Bactrim) which may potentiate the action of oral anticoagulants, with further increases in Protime/INR. Performed By: #### B MP, ADIFF, ANEU, GFR, PRO, CBC, APTT ####[address] [address] XR CHEST 1 VIEWon 10-07-2022 XR CHEST 1 VIEW Normal [facility] ([place]) XR CHEST 1 VIEW Normal [facility] ([place]) .Auto Diffon 10-06-2022 Basophil, Absolute 0.1 10 3/mcL Normal 0.0-0.3 [facility]) Comment on above: Performed By: #### C BC, GFR, BMP, ADIFF, ANEU ####[address] [address] Basophils/100 WBC (Bld) 0.9 % Normal 0.0-2.5 [facility] ([place]) Comment on above: Performed By: #### C BC, GFR, BMP, ADIFF, ANEU ####[address] [address] Eosinophil, Absolute 0.1 10 3/mcL Normal 0.0-0.7 [facility] ([place]) Comment on above: Performed By: #### C BC, GFR, BMP, ADIFF, ANEU ####[address] [address] Eosinophils/100 WBC (Bld) 0.8 % Normal 0.0-6.0 [facility] ([place]) Comment on above: Performed By: #### C BC, GFR, BMP, ADIFF, ANEU ####[address] [address] Lymphocyte, Absolute 1.5 10 3/mcL Normal 0.9-4.3 [facility] ([place]) Comment on above: Performed By: #### C BC, GFR, BMP, ADIFF, ANEU ####[address] [address] Lymphocytes/100 WBC (Bld) 17.0 % Low 20.0-40.0 [facility] ([place]) Comment on above: Performed By: #### C BC, GFR, BMP, ADIFF, ANEU ####[address] [address] Monocyte, Absolute 1.0 10 3/mcL Normal 0.1-1.4 [facility] ([place]) Comment on above: Performed By: #### C BC, GFR, BMP, ADIFF, ANEU ####[address] [address] Monocytes/100 WBC (Bld) 11.0 % Normal 2.0-13.0 [facility] ([place]) Comment on above: Performed By: #### C BC, GFR, BMP, ADIFF, ANEU ####[address] [address] Neutrophils/100 WBC (Bld) 70.3 % Normal 50.0-75.0 [facility] ([place]) Comment on above: Performed By: #### C BC, GFR, BMP, ADIFF, ANEU ####[address] [address] .GFRon 10-06-2022 GFR >60 Normal [facility] ([place]) Comment on above: Result Comment: GFR Population mean for , Non- Americans Ages 20-29 = 116 mL/min/1.73 sq.m. Ages 30-39 = 107 mL/min/1.73 sq.m. Ages 40-49 = 99 mL/min/1.73 sq.m. Ages 50-59 = 93 mL/min/1.73 sq.m. Ages 60-69 = 85 mL/min/1.73 sq.m. Ages 70+ = 75 mL/min/1.73 sq.m.Chronic Kidney Disease: Less than 60 mL/min/1.73 square metersEnd Stage Renal Disease: Less than 15 mL/min/1.73 square meters Performed By: #### C BC, GFR, BMP, ADIFF, ANEU ####[place] [address] GFR Non- >60 Normal [facility] ([place]) Comment on above: Result Comment: GFR Population mean for , Non- Americans Ages 20-29 = 116 mL/min/1.73 sq.m. Ages 30-39 = 107 mL/min/1.73 sq.m. Ages 40-49 = 99 mL/min/1.73 sq.m. Ages 50-59 = 93 mL/min/1.73 sq.m. Ages 60-69 = 85 mL/min/1.73 sq.m. Ages 70+ = 75 mL/min/1.73 sq.m.Chronic Kidney Disease: Less than 60 mL/min/1.73 square metersEnd Stage Renal Disease: Less than 15 mL/min/1.73 square meters Performed By: #### C BC, GFR, BMP, ADIFF, ANEU ####[place] [address] .NEUABSon 10-06-2022 Neutrophil, Absolute 6.4 10 3/mcL Normal 2.3-8.1 [facility] [place]) Comment on above: Performed By: #### C BC, GFR, BMP, ADIFF, ANEU ####[place] [address] APTTon 10-06-2022 aPTT Coag (Bld) [Time] 60.8 s High 25.0-35.0 [facility] ([place]) Comment on above: Result Comment: For Heparin anticoagulation therapy, the recommendedtherapeutic range is: 54-77 seconds (APTT Correlationwith Anti-Xa therapeutic range of 0.3-0.7 units/ml).PLEASE REFERENCE THE PHARMACY PROTOCOL FOR DOSING. Performed By: #### A PTT ####[place] [id number] Heparin dose (APTT) Heparin IV Normal [facility] ([place]) Comment on above: Performed By: #### A PTT ####[place] [id number] aPTT Coag (Bld) [Time] s Critically abnormal 25.0-35.0 [facility] ([place]) Comment on above: Result Comment: For Heparin anticoagulation therapy, the recommendedtherapeutic range is: 54-77 seconds (APTT Correlationwith Anti-Xa therapeutic range of 0.3-0.7 units/ml).PLEASE REFERENCE THE PHARMACY PROTOCOL FOR DOSING. Performed By: #### A PTT ####[place] [address] Heparin dose (APTT) Heparin IV [facility] ([place]) Comment on above: Performed By: #### A PTT ####[place] [address] aPTT Coag (Bld) [Time] 52.7 s High 25.0-35.0 [facility] ([place]) Comment on above: Result Comment: For Heparin anticoagulation therapy, the recommendedtherapeutic range is: 54-77 seconds (APTT Correlationwith Anti-Xa therapeutic range of 0.3-0.7 units/ml).PLEASE REFERENCE THE PHARMACY PROTOCOL FOR DOSING. Performed By: #### A PTT ####[place] [address] Heparin dose (APTT) Heparin IV [facility] ([place]) Comment on above: Performed By: #### A PTT ####[place] [id number] aPTT Coag (Bld) [Time] 38.9 s High 25.0-35.0 [facility] ([place] Comment on above: Result Comment: For Heparin anticoagulation therapy, the recommendedtherapeutic range is: 54-77 seconds (APTT Correlationwith Anti-Xa therapeutic range of 0.3-0.7 units/ml).PLEASE REFERENCE THE PHARMACY PROTOCOL FOR DOSING. Performed By: #### A PTT ####[place] [id number] Heparin dose (APTT) Heparin IV Normal [facility] ([place] Comment on above: Performed By: #### A PTT ####[place] [id number] BMPon 10-06-2022 BUN/Creatinine Ratio 25.6 ratio High 10.0-22.0 [facility] ([place]) Comment on above: Performed By: #### C BC, GFR, BMP, ADIFF, ANEU ####[place] [address] Calcium [Mass/Vol] 8.3 mg/dL Low 8.7-10.4 [facility] ([place]) Comment on above: Performed By: #### C BC, GFR, BMP, ADIFF, ANEU ####[place] [id number] Chloride [Moles/Vol] 101 mmol/L Normal 98-110 [facility] ([place]) Comment on above: Performed By: #### C BC, GFR, BMP, ADIFF, ANEU ####[place] [address] CO2 [Moles/Vol] 33 mmol/L High 22-32 [facility] ([place] Comment on above: Performed By: #### C BC, GFR, BMP, ADIFF, ANEU ####[place] [id number] Creatinine [Mass/Vol] 0.90 mg/dL Normal 0.50-1.20 [facility] ([place] Comment on above: Performed By: #### C BC, GFR, BMP, ADIFF, ANEU ####[place] [address] Electrolyte Balance 4.0 mEq/L Normal 4.0-15.0 [facility] ([place] Comment on above: Performed By: #### C BC, GFR, BMP, ADIFF, ANEU ####[place] [id number] Glucose [Mass/Vol] 94 mg/dL Normal 82-115 [facility] ([place] Comment on above: Performed By: #### C BC, GFR, BMP, ADIFF, ANEU ####[place] [address] Potassium [Moles/Vol] 4.1 mmol/L Normal 3.5-5.0 [facility] ([place] Comment on above: Performed By: #### C BC, GFR, BMP, ADIFF, ANEU ####[place] [address] Sodium [Moles/Vol] 138 mmol/L Normal 136-145 [facility] ([place] Comment on above: Performed By: #### C BC, GFR, BMP, ADIFF, ANEU ####[place] [address] Urea nitrogen [Mass/Vol] 23.0 mg/dL High 8.0-22.0 [facility] ([place]) Comment on above: Performed By: #### C BC, GFR, BMP, ADIFF, ANEU ####[place] [address] CBCon 10-06-2022 Erythrocyte distribution width (RBC) [Ratio] 15.2 % Normal 11.5-15.5 [facility] ([place]) Comment on above: Performed By: #### C BC, GFR, BMP, ADIFF, ANEU ####[place] [address] Hematocrit (Bld) [Volume fraction] 39.9 % Normal 34.0-46.0 [facility] ([place] Comment on above: Performed By: #### C BC, GFR, BMP, ADIFF, ANEU ####[place] [address] Hgb 13.1 G/dL Normal 12.0-16.0 [facility] ([place] Comment on above: Performed By: #### C BC, GFR, BMP, ADIFF, ANEU ####[place] [address] MCH (RBC) [Entitic mass] 27.5 pg Normal 27.0-33.0 [facility] ([place] Comment on above: Performed By: #### C BC, GFR, BMP, ADIFF, ANEU ####[place] [address] MCHC 32.9 G/dL Normal 32.0-36.0 [facility] ([place] Comment on above: Performed By: #### C BC, GFR, BMP, ADIFF, ANEU ####[place] [address] MCV (RBC) [Entitic vol] 83.3 fL Normal 80.0-99.0 [facility] ([place] Comment on above: Performed By: #### C BC, GFR, BMP, ADIFF, ANEU ####[place] [address] Platelet 260 10 3/mcL Normal 150-450 [facility] ([place] Comment on above: Performed By: #### C BC, GFR, BMP, ADIFF, ANEU ####[place] [address] Platelet mean volume (Bld) [Entitic vol] 8.9 fL Normal 6.6-10.5 [facility] ([place] Comment on above: Performed By: #### C BC, GFR, BMP, ADIFF, ANEU ####[place] [address] RBC 4.79 10 6/mcL Normal 4.10-5.30 [facility] ([place] Comment on above: Performed By: #### C BC, GFR, BMP, ADIFF, ANEU ####[place] [address] WBC 9.0 10 3/mcL Normal 4.5-10.8 [facility] ([place] Comment on above: Performed By: #### C BC, GFR, BMP, ADIFF, ANEU ####[place] [address] CBLon 10-06-2022 CBL Normal [facility] ([place]) CBL Normal [facility] ([place]) PROon 10-06-2022 INR Coag (PPP) [Relative time] 1.1 {INR} Normal [facility] ([place]) Comment on above: Result Comment: [employer] (CHEST, 1992, 102:312S-25S)recommended therapeutic range for oral anticoagulant therapy is:LOW RISK: Prophylaxis of venous thrombosis INR: 2.0-3.0 Treatment of pulmonary embolism 2.0-3.0 Prevention of systemic embolism 2.0-3.0HIGH RISK: Mechanical prosthetic valves 2.5-3.5 Performed By: #### P RO ####[place] [address] PT Coag (PPP) [Time] 13.1 s Normal 9.0-14.8 [facility] ([place]) Comment on above: Result Comment: Effe ctive 10/03/07, Protime results may be affected by some antibiotics (i.e. Ciprofloxacin, Azithromycin, Bactrim) which may potentiate the action of oral anticoagulants, with further increases in Protime/INR. Performed By: #### P RO ####[place] [id number] INR Coag (PPP) [Relative time] 8.2 {INR} Critically abnormal [facility] ([place]) Comment on above: Result Comment: [employer] (CHEST, 1992, 102:312S-25S)recommended therapeutic range for oral anticoagulant therapy is:LOW RISK: Prophylaxis of venous thrombosis INR: 2.0-3.0 Treatment of pulmonary embolism 2.0-3.0 Prevention of systemic embolism 2.0-3.0HIGH RISK: Mechanical prosthetic valves 2.5-3.5 Performed By: #### P RO ####[place] [id number] PT Coag (PPP) [Time] 101.2 s High 9.0-14.8 [facility] ([place]) Comment on above: Result Comment: Effe ctive 10/03/07, Protime results may be affected by some antibiotics (i.e. Ciprofloxacin, Azithromycin, Bactrim) which may potentiate the action of oral anticoagulants, with further increases in Protime/INR. Performed By: #### P RO ####[place] [id number] .Auto Diffon 10-05-2022 Basophil, Absolute 0.2 10 3/mcL Normal 0.0-0.3 [facility] ([place]) Comment on above: Performed By: #### A DIFF, BMP, ANEU, GFR, CBC ####[address] [address] Basophils/100 WBC (Bld) 1.5 % Normal 0.0-2.5 [facility] ([place]) Comment on above: Performed By: #### A DIFF, BMP, ANEU, GFR, CBC ####[address] [address] Eosinophil, Absolute 0.2 10 3/mcL Normal 0.0-0.7 [facility] ([place] Comment on above: Performed By: #### A DIFF, BMP, ANEU, GFR, CBC ####[address] [address] Eosinophils/100 WBC (Bld) 1.9 % Normal 0.0-6.0 [facility] ([place] Comment on above: Performed By: #### A DIFF, BMP, ANEU, GFR, CBC ####[address] [address] Lymphocyte, Absolute 2.1 10 3/mcL Normal 0.9-4.3 [facility] ([place] Comment on above: Performed By: #### A DIFF, BMP, ANEU, GFR, CBC ####[address] [address] Lymphocytes/100 WBC (Bld) 18.9 % Low 20.0-40.0 [facility] ([place] Comment on above: Performed By: #### A DIFF, BMP, ANEU, GFR, CBC ####[address] [address] Monocyte, Absolute 1.2 10 3/mcL Normal 0.1-1.4 [facility] ([place] Comment on above: Performed By: #### A DIFF, BMP, ANEU, GFR, CBC ####[address] [address] Monocytes/100 WBC (Bld) 11.2 % Normal 2.0-13.0 [facility] ([place]) Comment on above: Performed By: #### A DIFF, BMP, ANEU, GFR, CBC ####[address] [address] Neutrophils/100 WBC (Bld) 66.5 % Normal 50.0-75.0 [facility] ([place] Comment on above: Performed By: #### A DIFF, BMP, ANEU, GFR, CBC ####[address] [address] .GFRon 10-05-2022 GFR >60 Normal [facility] ([place] Comment on above: Result Comment: GFR Population mean for , Non- Americans Ages 20-29 = 116 mL/min/1.73 sq.m. Ages 30-39 = 107 mL/min/1.73 sq.m. Ages 40-49 = 99 mL/min/1.73 sq.m. Ages 50-59 = 93 mL/min/1.73 sq.m. Ages 60-69 = 85 mL/min/1.73 sq.m. Ages 70+ = 75 mL/min/1.73 sq.m.Chronic Kidney Disease: Less than 60 mL/min/1.73 square metersEnd Stage Renal Disease: Less than 15 mL/min/1.73 square meters Performed By: #### A DIFF, BMP, ANEU, GFR, CBC ####[address] [address] GFR Non- >60 Normal [facility] ([place] Comment on above: Result Comment: GFR Population mean for , Non- Americans Ages 20-29 = 116 mL/min/1.73 sq.m. Ages 30-39 = 107 mL/min/1.73 sq.m. Ages 40-49 = 99 mL/min/1.73 sq.m. Ages 50-59 = 93 mL/min/1.73 sq.m. Ages 60-69 = 85 mL/min/1.73 sq.m. Ages 70+ = 75 mL/min/1.73 sq.m.Chronic Kidney Disease: Less than 60 mL/min/1.73 square metersEnd Stage Renal Disease: Less than 15 mL/min/1.73 square meters Performed By: #### A DIFF, BMP, ANEU, GFR, CBC ####[place] [address] .NEUABSon 10-05-2022 Neutrophil, Absolute 7.3 10 3/mcL Normal 2.3-8.1 [facility] ([place] Comment on above: Performed By: #### A DIFF, BMP, ANEU, GFR, CBC ####[place] [address] APTTon 10-05-2022 aPTT Coag (Bld) [Time] 29.9 s Normal 25.0-35.0 [facility] ([place]) Comment on above: Result Comment: For Heparin anticoagulation therapy, the recommendedtherapeutic range is: 54-77 seconds (APTT Correlationwith Anti-Xa therapeutic range of 0.3-0.7 units/ml).PLEASE REFERENCE THE PHARMACY PROTOCOL FOR DOSING. Performed By: #### A PTT ####[place] [address] Heparin dose (APTT) Heparin IV Normal [facility] ([place] Comment on above: Performed By: #### A PTT ####[place] [address] aPTT Coag (Bld) [Time] 35.8 s High 25.0-35.0 [facility] ([place] Comment on above: Result Comment: For Heparin anticoagulation therapy, the recommendedtherapeutic range is: 54-77 seconds (APTT Correlationwith Anti-Xa therapeutic range of 0.3-0.7 units/ml).PLEASE REFERENCE THE PHARMACY PROTOCOL FOR DOSING. Performed By: #### A PTT ####[place] [address] Heparin dose (APTT) Heparin IV Normal [facility] ([place] Comment on above: Performed By: #### A PTT ####[place] [address] BMPon 10-05-2022 BUN/Creatinine Ratio 29.9 ratio High 10.0-22.0 [facility] ([place] Comment on above: Performed By: #### A DIFF, BMP, ANEU, GFR, CBC ####[address] [address] Calcium [Mass/Vol] 8.3 mg/dL Low 8.7-10.4 [facility] ([place] Comment on above: Performed By: #### A DIFF, BMP, ANEU, GFR, CBC ####[address] [address] Chloride [Moles/Vol] 103 mmol/L Normal 98-110 [facility] ([place] Comment on above: Performed By: #### A DIFF, BMP, ANEU, GFR, CBC ####[place] [address] CO2 [Moles/Vol] 30 mmol/L Normal 22-32 [facility] ([place] Comment on above: Performed By: #### A DIFF, BMP, ANEU, GFR, CBC ####[place] [address] Creatinine [Mass/Vol] 0.87 mg/dL Normal 0.50-1.20 [facility] ([place] Comment on above: Performed By: #### A DIFF, BMP, ANEU, GFR, CBC ####[place] [address] Electrolyte Balance 6.0 mEq/L Normal 4.0-15.0 [facility] ([place] Comment on above: Performed By: #### A DIFF, BMP, ANEU, GFR, CBC ####[address] [address] Glucose [Mass/Vol] 114 mg/dL Normal 82-115 [facility] ([place] Comment on above: Performed By: #### A DIFF, BMP, ANEU, GFR, CBC ####[address] [address] Potassium [Moles/Vol] 4.4 mmol/L Normal 3.5-5.0 [facility] ([place] Comment on above: Result Comment: Spec imen slightly hemolyzed. Performed By: #### A DIFF, BMP, ANEU, GFR, CBC ####[address] [address] Sodium [Moles/Vol] 139 mmol/L Normal 136-145 [facility] ([place] Comment on above: Performed By: #### A DIFF, BMP, ANEU, GFR, CBC ####[place] [address] Urea nitrogen [Mass/Vol] 26.0 mg/dL High 8.0-22.0 [facility] ([place] Comment on above: Performed By: #### A DIFF, BMP, ANEU, GFR, CBC ####[place] [address] CBCon 10-05-2022 Erythrocyte distribution width (RBC) [Ratio] 14.9 % Normal 11.5-15.5 [facility] ([place] Comment on above: Performed By: #### A DIFF, BMP, ANEU, GFR, CBC ####[place] [address] Hematocrit (Bld) [Volume fraction] 40.2 % Normal 34.0-46.0 [facility] ([place] Comment on above: Performed By: #### A DIFF, BMP, ANEU, GFR, CBC ####[place] [address] Hgb 13.2 G/dL Normal 12.0-16.0 [facility] ([place] Comment on above: Performed By: #### A DIFF, BMP, ANEU, GFR, CBC ####[place] [address] MCH (RBC) [Entitic mass] 27.7 pg Normal 27.0-33.0 [facility] ([place] Comment on above: Performed By: #### A DIFF, BMP, ANEU, GFR, CBC ####[place] [address] MCHC 32.8 G/dL Normal 32.0-36.0 [facility] ([place] Comment on above: Performed By: #### A DIFF, BMP, ANEU, GFR, CBC ####[place] [address] MCV (RBC) [Entitic vol] 84.4 fL Normal 80.0-99.0 [facility] ([place] Comment on above: Performed By: #### A DIFF, BMP, ANEU, GFR, CBC ####[address] [address] Platelet 313 10 3/mcL Normal 150-450 [facility] ([place] Comment on above: Performed By: #### A DIFF, BMP, ANEU, GFR, CBC ####[address] [address] Platelet mean volume (Bld) [Entitic vol] 8.8 fL Normal 6.6-10.5 [facility] ([place] Comment on above: Performed By: #### A DIFF, BMP, ANEU, GFR, CBC ####[address] [address] RBC 4.76 10 6/mcL Normal 4.10-5.30 [facility] ([place] Comment on above: Performed By: #### A DIFF, BMP, ANEU, GFR, CBC ####[address] [address] WBC 11.0 10 3/mcL High 4.5-10.8 [facility] ([place] Comment on above: Performed By: #### A DIFF, BMP, ANEU, GFR, CBC ####[address] [address] Final Surgical Pathology Rep caitlin 10-05-2022 Final Surgical Pathology Report Normal [facility] ([place]) LABORATORYOrdered By: Gianni Reynolds on 10-05-2022 Blood Glucose Interventions Administered agent to decrease blood sugar (10/05/22 4:38 PM) [facility] Blood Glucose Interventions Administered agent to decrease blood sugar (10/05/22 11:44 AM) [facility] .Auto Diffon 10-04-2022 Basophil, Absolute 0.0 10 3/mcL Normal 0.0-0.3 [facility] ([place] Comment on above: Performed By: #### P RO, GFR, CBC, ADIFF, BMP, ANEU ####[address] [address] Basophils/100 WBC (Bld) 0.2 % Normal 0.0-2.5 [facility] ([place] Comment on above: Performed By: #### P RO, GFR, CBC, ADIFF, BMP, ANEU ####[address] [address] Eosinophil, Absolute 0.0 10 3/mcL Normal 0.0-0.7 [facility] ([place] Comment on above: Performed By: #### P RO, GFR, CBC, ADIFF, BMP, ANEU ####[address] [address] Eosinophils/100 WBC (Bld) 0.1 % Normal 0.0-6.0 [facility] ([place] Comment on above: Performed By: #### P RO, GFR, CBC, ADIFF, BMP, ANEU ####[address] [address] Lymphocyte, Absolute 1.0 10 3/mcL Normal 0.9-4.3 [facility] ([place] Comment on above: Performed By: #### P RO, GFR, CBC, ADIFF, BMP, ANEU ####[address] [address] Lymphocytes/100 WBC (Bld) 7.7 % Low 20.0-40.0 [facility] ([place] Comment on above: Performed By: #### P RO, GFR, CBC, ADIFF, BMP, ANEU ####[address] [address] Monocyte, Absolute 0.7 10 3/mcL Normal 0.1-1.4 [facility] ([place] Comment on above: Performed By: #### P RO, GFR, CBC, ADIFF, BMP, ANEU ####[address] [address] Monocytes/100 WBC (Bld) 5.7 % Normal 2.0-13.0 [facility] ([place] Comment on above: Performed By: #### P RO, GFR, CBC, ADIFF, BMP, ANEU ####[address] [address] Neutrophils/100 WBC (Bld) 86.3 % High 50.0-75.0 [facility] ([place] Comment on above: Performed By: #### P RO, GFR, CBC, ADIFF, BMP, ANEU ####[address] [address] .GFRon 10-04-2022 GFR >60 Normal [facility] ([place] Comment on above: Result Comment: GFR Population mean for , Non- Americans Ages 20-29 = 116 mL/min/1.73 sq.m. Ages 30-39 = 107 mL/min/1.73 sq.m. Ages 40-49 = 99 mL/min/1.73 sq.m. Ages 50-59 = 93 mL/min/1.73 sq.m. Ages 60-69 = 85 mL/min/1.73 sq.m. Ages 70+ = 75 mL/min/1.73 sq.m.Chronic Kidney Disease: Less than 60 mL/min/1.73 square metersEnd Stage Renal Disease: Less than 15 mL/min/1.73 square meters Performed By: #### P RO, GFR, CBC, ADIFF, BMP, ANEU ####[place] [address] GFR Non- >60 Normal [facility] ([place] Comment on above: Result Comment: GFR Population mean for , Non- Americans Ages 20-29 = 116 mL/min/1.73 sq.m. Ages 30-39 = 107 mL/min/1.73 sq.m. Ages 40-49 = 99 mL/min/1.73 sq.m. Ages 50-59 = 93 mL/min/1.73 sq.m. Ages 60-69 = 85 mL/min/1.73 sq.m. Ages 70+ = 75 mL/min/1.73 sq.m.Chronic Kidney Disease: Less than 60 mL/min/1.73 square metersEnd Stage Renal Disease: Less than 15 mL/min/1.73 square meters Performed By: #### P RO, GFR, CBC, ADIFF, BMP, ANEU ####[place] [address] .NEUABSon 10-04-2022 Neutrophil, Absolute 11.1 10 3/mcL High 2.3-8.1 A [facility] ([place]) Comment on above: Performed By: #### P RO, GFR, CBC, ADIFF, BMP, ANEU ####[place] [id number] APTTon 10-04-2022 aPTT Coag (Bld) [Time] 23.9 s Low 25.0-35.0 [facility] ([place]) Comment on above: Result Comment: For Heparin anticoagulation therapy, the recommendedtherapeutic range is: 54-77 seconds (APTT Correlationwith Anti-Xa therapeutic range of 0.3-0.7 units/ml).PLEASE REFERENCE THE PHARMACY PROTOCOL FOR DOSING. Performed By: #### P RO, APTT ####[place] [address] Heparin dose (APTT) Heparin IV Normal [facility] ([place] Comment on above: Performed By: #### P RO, APTT ####[place] [address] BMPon 10-04-2022 BUN/Creatinine Ratio 31.3 ratio High 10.0-22.0 [facility] ([place]) Comment on above: Performed By: #### P RO, GFR, CBC, ADIFF, BMP, ANEU ####[place] [address] Calcium [Mass/Vol] 8.4 mg/dL Low 8.7-10.4 [facility] ([place]) Comment on above: Performed By: #### P RO, GFR, CBC, ADIFF, BMP, ANEU ####[address] [address] Chloride [Moles/Vol] 100 mmol/L Normal 98-110 [facility] ([place]) Comment on above: Performed By: #### P RO, GFR, CBC, ADIFF, BMP, ANEU ####[place] [id number] CO2 [Moles/Vol] 30 mmol/L Normal 22-32 [facility] ([place]) Comment on above: Performed By: #### P RO, GFR, CBC, ADIFF, BMP, ANEU ####[place] [id number] Creatinine [Mass/Vol] 0.83 mg/dL Normal 0.50-1.20 [facility] ([place] Comment on above: Performed By: #### P RO, GFR, CBC, ADIFF, BMP, ANEU ####[place] [address] Electrolyte Balance 6.0 mEq/L Normal 4.0-15.0 [facility] ([place] Comment on above: Performed By: #### P RO, GFR, CBC, ADIFF, BMP, ANEU ####[place] [address] Glucose [Mass/Vol] 269 mg/dL High 82-115 [facility] ([place] Comment on above: Performed By: #### P RO, GFR, CBC, ADIFF, BMP, ANEU ####[place] [address] Potassium [Moles/Vol] 4.2 mmol/L Normal 3.5-5.0 [facility] ([place] Comment on above: Performed By: #### P RO, GFR, CBC, ADIFF, BMP, ANEU ####[place] [address] Sodium [Moles/Vol] 136 mmol/L Normal 136-145 [facility] ([place] Comment on above: Performed By: #### P RO, GFR, CBC, ADIFF, BMP, ANEU ####[place] [address] Urea nitrogen [Mass/Vol] 26.0 mg/dL High 8.0-22.0 [facility] ([place]) Comment on above: Performed By: #### P RO, GFR, CBC, ADIFF, BMP, ANEU ####[place] [address] CBCon 10-04-2022 Erythrocyte distribution width (RBC) [Ratio] 14.7 % Normal 11.5-15.5 [facility] ([place] Comment on above: Performed By: #### P RO, GFR, CBC, ADIFF, BMP, ANEU ####[place] [address] Hematocrit (Bld) [Volume fraction] 40.1 % Normal 34.0-46.0 [facility] ([place] Comment on above: Performed By: #### P RO, GFR, CBC, ADIFF, BMP, ANEU ####[place] [address] Hgb 13.1 G/dL Normal 12.0-16.0 [facility] ([place] Comment on above: Performed By: #### P RO, GFR, CBC, ADIFF, BMP, ANEU ####[place] [address] MCH (RBC) [Entitic mass] 27.5 pg Normal 27.0-33.0 [facility] ([place] Comment on above: Performed By: #### P RO, GFR, CBC, ADIFF, BMP, ANEU ####[place] [address] MCHC 32.8 G/dL Normal 32.0-36.0 [facility] ([place] Comment on above: Performed By: #### P RO, GFR, CBC, ADIFF, BMP, ANEU ####[place] [address] MCV (RBC) [Entitic vol] 84.0 fL Normal 80.0-99.0 [facility] ([place] Comment on above: Performed By: #### P RO, GFR, CBC, ADIFF, BMP, ANEU ####[place] [address] Platelet 248 10 3/mcL Normal 150-450 [facility] ([place] Comment on above: Performed By: #### P RO, GFR, CBC, ADIFF, BMP, ANEU ####[place] [address] Platelet mean volume (Bld) [Entitic vol] 9.4 fL Normal 6.6-10.5 [facility] ([place]) Comment on above: Performed By: #### P RO, GFR, CBC, ADIFF, BMP, ANEU ####[place] [address] RBC 4.78 10 6/mcL Normal 4.10-5.30 [facility] ([place] Comment on above: Performed By: #### P RO, GFR, CBC, ADIFF, BMP, ANEU ####[address] [address] WBC 12.8 10 3/mcL High 4.5-10.8 [facility] ([place]) Comment on above: Performed By: #### P RO, GFR, CBC, ADIFF, BMP, ANEU ####[address] [address] PROon 10-04-2022 INR Coag (PPP) [Relative time] 1.0 {INR} Normal [facility] ([place]) Comment on above: Result Comment: [employer] (CHEST, 1992, 102:312S-25S)recommended therapeutic range for oral anticoagulant therapy is:LOW RISK: Prophylaxis of venous thrombosis INR: 2.0-3.0 Treatment of pulmonary embolism 2.0-3.0 Prevention of systemic embolism 2.0-3.0HIGH RISK: Mechanical prosthetic valves 2.5-3.5 Performed By: #### P RO, APTT ####[address] [address] PT Coag (PPP) [Time] 12.1 s Normal 9.0-14.8 [facility] ([place]) Comment on above: Result Comment: Effe ctive 10/03/07, Protime results may be affected by some antibiotics (i.e. Ciprofloxacin, Azithromycin, Bactrim) which may potentiate the action of oral anticoagulants, with further increases in Protime/INR. Performed By: #### P RO, APTT ####[place] [address] INR Coag (PPP) [Relative time] 1.0 {INR} Normal [facility] ([place]) Comment on above: Result Comment: [employer] (CHEST, 1992, 102:312S-25S)recommended therapeutic range for oral anticoagulant therapy is:LOW RISK: Prophylaxis of venous thrombosis INR: 2.0-3.0 Treatment of pulmonary embolism 2.0-3.0 Prevention of systemic embolism 2.0-3.0HIGH RISK: Mechanical prosthetic valves 2.5-3.5 Performed By: #### P RO, GFR, CBC, ADIFF, BMP, ANEU ####[address] [address] PT Coag (PPP) [Time] 12.2 s Normal 9.0-14.8 [facility] ([place]) Comment on above: Result Comment: Effe ctive 10/03/07, Protime results may be affected by some antibiotics (i.e. Ciprofloxacin, Azithromycin, Bactrim) which may potentiate the action of oral anticoagulants, with further increases in Protime/INR. Performed By: #### P RO, GFR, CBC, ADIFF, BMP, ANEU ####[address] [address] .Auto Diffon 10-03-2022 Basophil, Absolute 0.0 10 3/mcL Normal 0.0-0.3 [facility] ([place]) Comment on above: Performed By: #### B MP, GFR, ADIFF, CBC, ANEU ####[place] [address] Basophils/100 WBC (Bld) 0.4 % Normal 0.0-2.5 [facility] ([place]) Comment on above: Performed By: #### B MP, GFR, ADIFF, CBC, ANEU ####[address] [address] Eosinophil, Absolute 0.0 10 3/mcL Normal 0.0-0.7 [facility] ([place]) Comment on above: Performed By: #### B MP, GFR, ADIFF, CBC, ANEU ####[address] [address] Eosinophils/100 WBC (Bld) 0.1 % Normal 0.0-6.0 [facility] ([place]) Comment on above: Performed By: #### B MP, GFR, ADIFF, CBC, ANEU ####[address] [address] Lymphocyte, Absolute 0.5 10 3/mcL Low 0.9-4.3 [facility] ([place] Comment on above: Performed By: #### B MP, GFR, ADIFF, CBC, ANEU ####[address] [address] Lymphocytes/100 WBC (Bld) 4.1 % Low 20.0-40.0 [facility] ([place]) Comment on above: Performed By: #### B MP, GFR, ADIFF, CBC, ANEU ####[address] [address] Monocyte, Absolute 0.4 10 3/mcL Normal 0.1-1.4 [facility] ([place]) Comment on above: Performed By: #### B MP, GFR, ADIFF, CBC, ANEU ####[address] [address] Monocytes/100 WBC (Bld) 3.7 % Normal 2.0-13.0 [facility] ([place] Comment on above: Performed By: #### B MP, GFR, ADIFF, CBC, ANEU ####[address] [address] Neutrophils/100 WBC (Bld) 91.7 % High 50.0-75.0 [facility] ([place] Comment on above: Performed By: #### B MP, GFR, ADIFF, CBC, ANEU ####[address] [address] .GFRon 10-03-2022 GFR >60 Normal [facility] ([place]) Comment on above: Result Comment: GFR Population mean for , Non- Americans Ages 20-29 = 116 mL/min/1.73 sq.m. Ages 30-39 = 107 mL/min/1.73 sq.m. Ages 40-49 = 99 mL/min/1.73 sq.m. Ages 50-59 = 93 mL/min/1.73 sq.m. Ages 60-69 = 85 mL/min/1.73 sq.m. Ages 70+ = 75 mL/min/1.73 sq.m.Chronic Kidney Disease: Less than 60 mL/min/1.73 square metersEnd Stage Renal Disease: Less than 15 mL/min/1.73 square meters Performed By: #### B MP, GFR, ADIFF, CBC, ANEU ####[address] [address] GFR Non- >60 Normal [facility] ([place] Comment on above: Result Comment: GFR Population mean for , Non- Americans Ages 20-29 = 116 mL/min/1.73 sq.m. Ages 30-39 = 107 mL/min/1.73 sq.m. Ages 40-49 = 99 mL/min/1.73 sq.m. Ages 50-59 = 93 mL/min/1.73 sq.m. Ages 60-69 = 85 mL/min/1.73 sq.m. Ages 70+ = 75 mL/min/1.73 sq.m.Chronic Kidney Disease: Less than 60 mL/min/1.73 square metersEnd Stage Renal Disease: Less than 15 mL/min/1.73 square meters Performed By: #### B MP, GFR, ADIFF, CBC, ANEU ####[address] [address] .NEUABSon 10-03-2022 Neutrophil, Absolute 10.3 10 3/mcL High 2.3-8.1 A [facility] ([place]) Comment on above: Performed By: #### B MP, GFR, ADIFF, CBC, ANEU ####[address] [address] BMPon 10-03-2022 BUN/Creatinine Ratio 30.3 ratio High 10.0-22.0 [facility] ([place]) Comment on above: Performed By: #### B MP, GFR, ADIFF, CBC, ANEU ####[address] [address] Calcium [Mass/Vol] 8.7 mg/dL Normal 8.7-10.4 [facility] ([place]) Comment on above: Performed By: #### B MP, GFR, ADIFF, CBC, ANEU ####[address] [address] Chloride [Moles/Vol] 100 mmol/L Normal 98-110 [facility] ([place]) Comment on above: Performed By: #### B MP, GFR, ADIFF, CBC, ANEU ####[address] [address] CO2 [Moles/Vol] 26 mmol/L Normal 22-32 [facility] ([place] Comment on above: Performed By: #### B MP, GFR, ADIFF, CBC, ANEU ####[place] [address] Creatinine [Mass/Vol] 0.76 mg/dL Normal 0.50-1.20 [facility] ([place] Comment on above: Performed By: #### B MP, GFR, ADIFF, CBC, ANEU ####[place] [address] Electrolyte Balance 11.0 mEq/L Normal 4.0-15.0 [facility] ([place] Comment on above: Performed By: #### B MP, GFR, ADIFF, CBC, ANEU ####[place] [address] Glucose [Mass/Vol] 164 mg/dL High 82-115 [facility] ([place]) Comment on above: Performed By: #### B MP, GFR, ADIFF, CBC, ANEU ####[place] [address] Potassium [Moles/Vol] 4.2 mmol/L Normal 3.5-5.0 [facility] ([place]) Comment on above: Performed By: #### B MP, GFR, ADIFF, CBC, ANEU ####[place] [address] Sodium [Moles/Vol] 137 mmol/L Normal 136-145 [facility] ([place] Comment on above: Performed By: #### B MP, GFR, ADIFF, CBC, ANEU ####[place] [address] Urea nitrogen [Mass/Vol] 23.0 mg/dL High 8.0-22.0 [facility] ([place]) Comment on above: Performed By: #### B MP, GFR, ADIFF, CBC, ANEU ####[place] [address] CBCon 10-03-2022 Erythrocyte distribution width (RBC) [Ratio] 15.0 % Normal 11.5-15.5 [facility] ([place]) Comment on above: Order Comment: Crispin samuel recollect; checking results. 10/03/2022 09:09:31 EDT. L.BRecollected Specimen is clotted. Performed By: #### B MP, GFR, ADIFF, CBC, ANEU ####[place] [address] Hematocrit (Bld) [Volume fraction] 41.8 % Normal 34.0-46.0 [facility] ([place]) Comment on above: Order Comment: Plesmiley e recollect; checking results. 10/03/2022 09:09:31 EDT. L.BRecollected Specimen is clotted. Performed By: #### B MP, GFR, ADIFF, CBC, ANEU ####[place] [address] Hgb 13.9 G/dL Normal 12.0-16.0 [facility] ([place]) Comment on above: Order Comment: Pleas e recollect; checking results. 10/03/2022 09:09:31 EDT. L.BRecollected Specimen is clotted. Performed By: #### B MP, GFR, ADIFF, CBC, ANEU ####[place] [address] MCH (RBC) [Entitic mass] 28.0 pg Normal 27.0-33.0 [facility] ([place]) Comment on above: Order Comment: Plesmiley samuel recollect; checking results. 10/03/2022 09:09:31 EDT. L.BRecollected Specimen is clotted. Performed By: #### B MP, GFR, ADIFF, CBC, ANEU ####[place] [address] MCHC 33.2 G/dL Normal 32.0-36.0 [facility] ([place]) Comment on above: Order Comment: Pleas e recollect; checking results. 10/03/2022 09:09:31 EDT. L.BRecollected Specimen is clotted. Performed By: #### B MP, GFR, ADIFF, CBC, ANEU ####[place] [address] MCV (RBC) [Entitic vol] 84.3 fL Normal 80.0-99.0 [facility] ([place]) Comment on above: Order Comment: Pleas e recollect; checking results. 10/03/2022 09:09:31 EDT. L.BRecollected Specimen is clotted. Performed By: #### B MP, GFR, ADIFF, CBC, ANEU ####[address] [address] Platelet 261 10 3/mcL Normal 150-450 [facility] ([place]) Comment on above: Order Comment: Pleas e recollect; checking results. 10/03/2022 09:09:31 EDT. L.BRecollected Specimen is clotted. Performed By: #### B MP, GFR, ADIFF, CBC, ANEU ####[place] [address] Platelet mean volume (Bld) [Entitic vol] 9.5 fL Normal 6.6-10.5 [facility] ([place]) Comment on above: Order Comment: Pleas e recollect; checking results. 10/03/2022 09:09:31 EDT. L.BRecollected Specimen is clotted. Performed By: #### B MP, GFR, ADIFF, CBC, ANEU ####[place] [address] RBC 4.96 10 6/mcL Normal 4.10-5.30 [facility] ([place]) Comment on above: Order Comment: Pleas e recollect; checking results. 10/03/2022 09:09:31 EDT. L.BRecollected Specimen is clotted. Performed By: #### B MP, GFR, ADIFF, CBC, ANEU ####[place] [address] WBC 11.2 10 3/mcL High 4.5-10.8 [facility] ([place]) Comment on above: Order Comment: Pleas e recollect; checking results. 10/03/2022 09:09:31 EDT. L.BRecollected Specimen is clotted. Performed By: #### B MP, GFR, ADIFF, CBC, ANEU ####[address] [address] CWDon 10-03-2022 CWD Normal [facility] ([place]) PROon 10-03-2022 INR Coag (PPP) [Relative time] 1.2 {INR} Normal [facility] ([place]) Comment on above: Order Comment: order ed secondary to warfarin order Result Comment: [employer] (CHEST, 1992, 102:312S-25S)recommended therapeutic range for oral anticoagulant therapy is:LOW RISK: Prophylaxis of venous thrombosis INR: 2.0-3.0 Treatment of pulmonary embolism 2.0-3.0 Prevention of systemic embolism 2.0-3.0HIGH RISK: Mechanical prosthetic valves 2.5-3.5 Performed By: #### P RO ####[place] [address] PT Coag (PPP) [Time] 14.1 s Normal 9.0-14.8 [facility]) Comment on above: Order Comment: order ed secondary to warfarin order Result Comment: Effe ctive 10/03/07, Protime results may be affected by some antibiotics (i.e. Ciprofloxacin, Azithromycin, Bactrim) which may potentiate the action of oral anticoagulants, with further increases in Protime/INR. Performed By: #### P RO ####[place] [address] .Auto Diffon 10-02-2022 Basophil, Absolute 0.0 10 3/mcL Normal 0.0-0.3 [facility]) Comment on above: Performed By: #### A SAMEER, GFR, CK, BMP, CBC, ADIFF, A1C, PRO ####[place] [address] Basophils/100 WBC (Bld) 0.4 % Normal 0.0-2.5 [facility] ([place] Comment on above: Performed By: #### A SAMEER, GFR, CK, BMP, CBC, ADIFF, A1C, PRO ####[place] [address] Eosinophil, Absolute 0.4 10 3/mcL Normal 0.0-0.7 [facility] ([place] Comment on above: Performed By: #### A SAMEER, GFR, CK, BMP, CBC, ADIFF, A1C, PRO ####[address] [address] Eosinophils/100 WBC (Bld) 3.1 % Normal 0.0-6.0 [facility] ([place]) Comment on above: Performed By: #### A SAMEER, GFR, CK, BMP, CBC, ADIFF, A1C, PRO ####[address] [address] Lymphocyte, Absolute 1.3 10 3/mcL Normal 0.9-4.3 [facility] ([place]) Comment on above: Performed By: #### A SAMEER, GFR, CK, BMP, CBC, ADIFF, A1C, PRO ####[address] [address] Lymphocytes/100 WBC (Bld) 9.7 % Low 20.0-40.0 [facility] ([place]) Comment on above: Performed By: #### A SAMEER, GFR, CK, BMP, CBC, ADIFF, A1C, PRO ####[address] [address] Monocyte, Absolute 0.8 10 3/mcL Normal 0.1-1.4 [facility] ([place]) Comment on above: Performed By: #### A SAMEER, GFR, CK, BMP, CBC, ADIFF, A1C, PRO ####[address] [address] Monocytes/100 WBC (Bld) 5.7 % Normal 2.0-13.0 [facility] ([place]) Comment on above: Performed By: #### A SAMEER, GFR, CK, BMP, CBC, ADIFF, A1C, PRO ####[address] [address] Neutrophils/100 WBC (Bld) 81.1 % High 50.0-75.0 [facility] ([place]) Comment on above: Performed By: #### A SAMEER, GFR, CK, BMP, CBC, ADIFF, A1C, PRO ####[address] [address] .GFRon 10-02-2022 GFR >60 Normal [facility] ([place]) Comment on above: Result Comment: GFR Population mean for , Non- Americans Ages 20-29 = 116 mL/min/1.73 sq.m. Ages 30-39 = 107 mL/min/1.73 sq.m. Ages 40-49 = 99 mL/min/1.73 sq.m. Ages 50-59 = 93 mL/min/1.73 sq.m. Ages 60-69 = 85 mL/min/1.73 sq.m. Ages 70+ = 75 mL/min/1.73 sq.m.Chronic Kidney Disease: Less than 60 mL/min/1.73 square metersEnd Stage Renal Disease: Less than 15 mL/min/1.73 square meters Performed By: #### A SAMEER, GFR, CK, BMP, CBC, ADIFF, A1C, PRO ####[address] [address] GFR Non- >60 Normal [facility] ([place]) Comment on above: Result Comment: GFR Population mean for , Non- Americans Ages 20-29 = 116 mL/min/1.73 sq.m. Ages 30-39 = 107 mL/min/1.73 sq.m. Ages 40-49 = 99 mL/min/1.73 sq.m. Ages 50-59 = 93 mL/min/1.73 sq.m. Ages 60-69 = 85 mL/min/1.73 sq.m. Ages 70+ = 75 mL/min/1.73 sq.m.Chronic Kidney Disease: Less than 60 mL/min/1.73 square metersEnd Stage Renal Disease: Less than 15 mL/min/1.73 square meters Performed By: #### A SAMEER, GFR, CK, BMP, CBC, ADIFF, A1C, PRO ####[address] [address] .NEUABSon 10-02-2022 Neutrophil, Absolute 11.0 10 3/mcL High 2.3-8.1 A [facility] ([place]) Comment on above: Performed By: #### A SAMEER, GFR, CK, BMP, CBC, ADIFF, A1C, PRO ####[address] [address] [id number] By: SYSTEM SYSTEM on 10-02-2022 HbA1c (Bld) [Mass fraction] 11.8 % High 4.0-6.0 [facility] Comment on above: Order Comment: qns Performed By: #### A SAMEER, GFR, CK, BMP, CBC, ADIFF, A1C, PRO ####[place] [id number] BMPon 10-02-2022 BUN/Creatinine Ratio 30.0 ratio High 10.0-22.0 [facility] ([place]) Comment on above: Performed By: #### A SAMEER, GFR, CK, BMP, CBC, ADIFF, A1C, PRO ####[place] [address] Calcium [Mass/Vol] 7.9 mg/dL Low 8.7-10.4 [facility] ([place]) Comment on above: Performed By: #### A SAMEER, GFR, CK, BMP, CBC, ADIFF, A1C, PRO ####[place] [address] Chloride [Moles/Vol] 102 mmol/L Normal 98-110 [facility] ([place]) Comment on above: Performed By: #### A SAMEER, GFR, CK, BMP, CBC, ADIFF, A1C, PRO ####[place] [address] CO2 [Moles/Vol] 24 mmol/L Normal 22-32 [facility] ([place] Comment on above: Performed By: #### A SAMEER, GFR, CK, BMP, CBC, ADIFF, A1C, PRO ####[place] [address] Creatinine [Mass/Vol] 0.80 mg/dL Normal 0.50-1.20 [facility] ([place]) Comment on above: Performed By: #### A SAMEER, GFR, CK, BMP, CBC, ADIFF, A1C, PRO ####[place] [address] Electrolyte Balance 11.0 mEq/L Normal 4.0-15.0 [facility] ([place] Comment on above: Performed By: #### A SAMEER, GFR, CK, BMP, CBC, ADIFF, A1C, PRO ####[address] [address] Glucose [Mass/Vol] 248 mg/dL High 82-115 [facility] ([place]) Comment on above: Performed By: #### A SAMEER, GFR, CK, BMP, CBC, ADIFF, A1C, PRO ####[address] [address] Potassium [Moles/Vol] 3.5 mmol/L Normal 3.5-5.0 [facility] ([place]) Comment on above: Result Comment: Spec imen slightly hemolyzed. Performed By: #### A SAMEER, GFR, CK, BMP, CBC, ADIFF, A1C, PRO ####[address] [address] Sodium [Moles/Vol] 137 mmol/L Normal 136-145 [facility] ([place]) Comment on above: Performed By: #### A SAMEER, GFR, CK, BMP, CBC, ADIFF, A1C, PRO ####[address] [address] Urea nitrogen [Mass/Vol] 24.0 mg/dL High 8.0-22.0 [facility] ([place]) Comment on above: Performed By: #### A SAMEER, GFR, CK, BMP, CBC, ADIFF, A1C, PRO ####[address] [address] CBCon 10-02-2022 Erythrocyte distribution width (RBC) [Ratio] 15.3 % Normal 11.5-15.5 [facility] ([place]) Comment on above: Performed By: #### A SAMEER, GFR, CK, BMP, CBC, ADIFF, A1C, PRO ####[address] [address] Hematocrit (Bld) [Volume fraction] 38.8 % Normal 34.0-46.0 [facility] ([place]) Comment on above: Performed By: #### A SAMEER, GFR, CK, BMP, CBC, ADIFF, A1C, PRO ####[address] [address] Hgb 12.6 G/dL Normal 12.0-16.0 [facility] ([place]) Comment on above: Performed By: #### A SAMEER, GFR, CK, BMP, CBC, ADIFF, A1C, PRO ####[place] [address] MCH (RBC) [Entitic mass] 27.6 pg Normal 27.0-33.0 [facility] ([place] Comment on above: Performed By: #### A SAMEER, GFR, CK, BMP, CBC, ADIFF, A1C, PRO ####[place] [address] MCHC 32.6 G/dL Normal 32.0-36.0 [facility] ([place]) Comment on above: Performed By: #### A SAMEER, GFR, CK, BMP, CBC, ADIFF, A1C, PRO ####[place] [address] MCV (RBC) [Entitic vol] 84.6 fL Normal 80.0-99.0 [facility] ([place]) Comment on above: Performed By: #### A SAMEER, GFR, CK, BMP, CBC, ADIFF, A1C, PRO ####[place] [address] Platelet 190 10 3/mcL Normal 150-450 [facility] ([place]) Comment on above: Performed By: #### A SAMEER, GFR, CK, BMP, CBC, ADIFF, A1C, PRO ####[place] [address] Platelet mean volume (Bld) [Entitic vol] 9.2 fL Normal 6.6-10.5 [facility] ([place]) Comment on above: Performed By: #### A SAMEER, GFR, CK, BMP, CBC, ADIFF, A1C, PRO ####[place] [address] RBC 4.58 10 6/mcL Normal 4.10-5.30 [facility] ([place]) Comment on above: Performed By: #### A SAMEER, GFR, CK, BMP, CBC, ADIFF, A1C, PRO ####[place] [address] WBC 13.5 10 3/mcL High 4.5-10.8 [facility] ([place]) Comment on above: Performed By: #### A SAMEER, GFR, CK, BMP, CBC, ADIFF, A1C, PRO ####[address] [address] CKon 10-02-2022 CPK <15 Normal 7-185 [facility] ([place]) Comment on above: Result Comment: Spec imen slightly hemolyzed. Performed By: #### A SAMEER, GFR, CK, BMP, CBC, ADIFF, A1C, PRO ####[address] [address] CPK <15 Normal 7-185 [facility] ([place]) Comment on above: Result Comment: Spec imen slightly hemolyzed. Performed By: #### C K ####[address] [address] LABORATORYOrdered By: SYSTEM SYSTEM on 10-02-2022 CK [Catalytic activity/Vol] U/L 1 Invalid Interpretation Code 7 - 185 U/L AH ADM SS Comment on above: Result Comment: Spec imen slightly hemolyzed. PROon 10-02-2022 INR Coag (PPP) [Relative time] 2.8 {INR} Normal [facility] ([place]) Comment on above: Order Comment: order ed secondary to warfarin order Result Comment: [employer] (CHEST, 1992, 102:312S-25S)recommended therapeutic range for oral anticoagulant therapy is:LOW RISK: Prophylaxis of venous thrombosis INR: 2.0-3.0 Treatment of pulmonary embolism 2.0-3.0 Prevention of systemic embolism 2.0-3.0HIGH RISK: Mechanical prosthetic valves 2.5-3.5 Performed By: #### A SAMEER, GFR, CK, BMP, CBC, ADIFF, A1C, PRO ####[address] [address] PT Coag (PPP) [Time] 34.0 s High 9.0-14.8 [facility] ([place]) Comment on above: Order Comment: order ed secondary to warfarin order Result Comment: Effe ctive 10/03/07, Protime results may be affected by some antibiotics (i.e. Ciprofloxacin, Azithromycin, Bactrim) which may potentiate the action of oral anticoagulants, with further increases in Protime/INR. Performed By: #### A SAMEER, GFR, CK, BMP, CBC, ADIFF, A1C, PRO ####[address] [address] .Auto Diffon 10-01-2022 Basophil, Absolute 0.0 10 3/mcL Normal 0.0-0.3 [facility] ([place]) Comment on above: Performed By: #### C BC, ADIFF, BMP, GFR, ANEU, LAC ####[address] [address] Basophils/100 WBC (Bld) 0.1 % Normal 0.0-2.5 [facility] ([place]) Comment on above: Performed By: #### C BC, ADIFF, BMP, GFR, ANEU, LAC ####[address] [address] Eosinophil, Absolute 0.1 10 3/mcL Normal 0.0-0.7 [facility] ([place]) Comment on above: Performed By: #### C BC, ADIFF, BMP, GFR, ANEU, LAC ####[address] [address] Eosinophils/100 WBC (Bld) 0.6 % Normal 0.0-6.0 [facility] ([place]) Comment on above: Performed By: #### C BC, ADIFF, BMP, GFR, ANEU, LAC ####[address] [address] Lymphocyte, Absolute 1.0 10 3/mcL Normal 0.9-4.3 [facility] ([place]) Comment on above: Performed By: #### C BC, ADIFF, BMP, GFR, ANEU, LAC ####[address] [address] Lymphocytes/100 WBC (Bld) 4.9 % Low 20.0-40.0 [facility] ([place]) Comment on above: Performed By: #### C BC, ADIFF, BMP, GFR, ANEU, LAC ####[address] [address] Monocyte, Absolute 1.1 10 3/mcL Normal 0.1-1.4 [facility] ([place]) Comment on above: Performed By: #### C BC, ADIFF, BMP, GFR, ANEU, LAC ####[place] [id number] [address] [place] [id number] Monocytes/100 WBC (Bld) 5.2 % Normal 2.0-13.0 [facility] ([place]) Comment on above: Performed By: #### C BC, ADIFF, BMP, GFR, ANEU, LAC ####[address] [address] Neutrophils/100 WBC (Bld) 89.2 % High 50.0-75.0 [facility] ([place]) Comment on above: Performed By: #### C BC, ADIFF, BMP, GFR, ANEU, LAC ####[address] [address] .GFRon 10-01-2022 GFR >60 Normal [facility] ([place]) Comment on above: Result Comment: GFR Population mean for , Non- Americans Ages 20-29 = 116 mL/min/1.73 sq.m. Ages 30-39 = 107 mL/min/1.73 sq.m. Ages 40-49 = 99 mL/min/1.73 sq.m. Ages 50-59 = 93 mL/min/1.73 sq.m. Ages 60-69 = 85 mL/min/1.73 sq.m. Ages 70+ = 75 mL/min/1.73 sq.m.Chronic Kidney Disease: Less than 60 mL/min/1.73 square metersEnd Stage Renal Disease: Less than 15 mL/min/1.73 square meters Performed By: #### C BC, ADIFF, BMP, GFR, ANEU, LAC ####[address] [address] GFR Non- >60 Normal [facility] ([place]) Comment on above: Result Comment: GFR Population mean for , Non- Americans Ages 20-29 = 116 mL/min/1.73 sq.m. Ages 30-39 = 107 mL/min/1.73 sq.m. Ages 40-49 = 99 mL/min/1.73 sq.m. Ages 50-59 = 93 mL/min/1.73 sq.m. Ages 60-69 = 85 mL/min/1.73 sq.m. Ages 70+ = 75 mL/min/1.73 sq.m.Chronic Kidney Disease: Less than 60 mL/min/1.73 square metersEnd Stage Renal Disease: Less than 15 mL/min/1.73 square meters Performed By: #### C BC, ADIFF, BMP, GFR, ANEU, LAC ####[place] [address] .NEUABSon 10-01-2022 Neutrophil, Absolute 19.2 10 3/mcL High 2.3-8.1 A [facility] ([place]) Comment on above: Performed By: #### C BC, ADIFF, BMP, GFR, ANEU, LAC ####[place] [address] AMPICILLIN:SUSC:PT:ISOLATE:O RDQN:MICon 10-01-2022 Ampicillin DAVID [Susc] Light Methicillin-Resistant Staphylococcus aureus This staphylococci does not demonstrate inducible clindamycin resistance in vitro. [facility] Ampicillin DAVID [Susc]on 09-18 GS 2+ Epithelial cells 2+ Mononuclear cells 3+ Gram Positive Cocci [facility] Methicillin-Resistan t Staphylococcus aureus Methicillin-Resistant Staphylococcus aureus [facility] BCIDon 10-01-2022 Acinetobacter davey-baumanii complex Not detected Normal Not Detected [facility] ([place]) Comment on above: Performed By: #### B LAURA ####[place] [address] Bacteroides fragilis Not detected Normal Not Detected [facility] ([place]) Comment on above: Performed By: #### B LAURA ####[place] [address] BCID Comment See Comment Normal [facility] ([place]) Comment on above: Result Comment: Anti microbial resistance can occur via multiple mechanisms. A Not Detected result for antimicrobial resistance gene(s) does not indicate antimicrobial susceptibility. Culture identification and susceptibility results to follow.If BCID panel was negative (Not Detected) for all targets, thisdoes not exclude a blood stream infection. Our blood culture system detectedgrowth. Culture identification and susceptibility testing (if appropriate) tofollow. Performed By: #### B LAURA ####[place] [address] Vivien albicans Not detected Normal Not Detected [facility] ([place]) Comment on above: Performed By: #### B LAURA ####[place] [address] Vivien auris Not detected Normal Not Detected [facility] ([place]) Comment on above: Performed By: #### B LAURA ####[place] [address] Vivien glabrata Not detected Normal Not Detected [facility] ([place]) Comment on above: Performed By: #### B LAURA ####[place] [address] Vivien krusei Not detected Normal Not Detected [facility] ([place]) Comment on above: Performed By: #### B LAURA ####[place] [address] Vivien parapsilosis Not detected Normal Not Detected [facility] ([place]) Comment on above: Performed By: #### B LAURA ####[place] [address] Vivien tropicalis Not detected Normal Not Detected [facility] ([place]) Comment on above: Performed By: #### B LAURA ####[place] [address] Cryptococcus neoformans-gattii Not detected Normal Not Detected [facility] ([place]) Comment on above: Performed By: #### B LAURA ####[place] [address] CTX-M (ESBL) Not Applicable Normal Not Detected [facility] ([place]) Comment on above: Performed By: #### B LAURA ####[place] [address] E. Coli Not detected Normal Not Detected [facility] ([place]) Comment on above: Performed By: #### B LAURA ####[id number] [place] [address] Enterobacter cloacae Complex Not detected Normal Not Detected [facility] ([place]) Comment on above: Performed By: #### B LAURA ####[place] [address] Enterobacterales Not detected Normal Not Detected [facility] ([place]) Comment on above: Performed By: #### B LAURA ####[place] [address] Enterococcus faecalis Not detected Normal Not Detected [facility] ([place]) Comment on above: Performed By: #### B LAURA ####[place] [address] Enterococcus faecium Not detected Normal Not Detected [facility] ([place]) Comment on above: Performed By: #### B LAURA ####[place] [address] Haemophilus influenzae Not detected Normal Not Detected [facility] ([place]) Comment on above: Performed By: #### B LAURA ####[place] [address] IMP (Carbapenemase) Not Applicable Normal Not Detected [facility] ([place]) Comment on above: Performed By: #### B LAURA ####[place] [address] Klebsiella aerogenes Not detected Normal Not Detected [facility] ([place] Comment on above: Performed By: #### B LAURA ####[place] [address] Klebsiella oxytoca Not detected Normal Not Detected [facility] ([place] Comment on above: Performed By: #### B LAURA ####[place] [address] Klebsiella pneumoniae group Not detected Normal Not Detected [facility] ([place]) Comment on above: Performed By: #### B LAURA ####[place] [address] KPC (Carbapenemase) Not Applicable Normal Not Detected [facility] ([place]) Comment on above: Performed By: #### B LAURA ####[id number] [place], [place] [address] Listeria monocytogenes Not detected Normal Not Detected [facility] ([place]) Comment on above: Performed By: #### B LAURA ####[place] [address] MCR-1 (Colistin Resistance) Not Applicable Normal Not Detected [facility] ([place] Comment on above: Performed By: #### B LAURA ####[place] [address] Mec A/C Detected Abnormal Not Detected [facility] ([place] Comment on above: Performed By: #### B LAURA ####[place] [address] Mec A/C-MREJ (MRSA) Not Applicable Normal Not Detected [facility] ([place] Comment on above: Performed By: #### B LAURA ####[place] [address] NDM (Carbapenemase) Not Applicable Normal Not Detected [facility] ([place] Comment on above: Performed By: #### B LAURA ####[place] [address] Neisseria meningitidis (Encapsalated) Not detected Normal Not Detected [facility] ([place] Comment on above: Performed By: #### B LAURA ####[place] [address] OXA-48 like (Carbapenemase) Not Applicable Normal Not Detected [facility] ([place] Comment on above: Performed By: #### B LAURA ####[place] [address] Proteus Not detected Normal Not Detected [facility] ([place] Comment on above: Performed By: #### B LAURA ####[place] [address] Pseudomonas aeruginosa Not detected Normal Not Detected [facility] ([place] Comment on above: Performed By: #### B LAURA ####[place] [address] S. agalactiae Org specific cx Ql (Vag fld) Not detected Normal Not Detected [facility] ([place] Comment on above: Performed By: #### B LAURA ####[address], [place] [address] Salmonella species Not detected Normal Not Detected [facility] ([place]) Comment on above: Performed By: #### B LAURA ####[facility] [place] [address] Serratia marcescens Not detected Normal Not Detected [facility] ([place]) Comment on above: Performed By: #### B LAURA ####[facility] [place] [address] Staphylococcus Detected Abnormal Not Detected [facility] ([place]) Comment on above: Performed By: #### B LAURA ####[facility] [place] [address] Staphylococcus aureus Not detected Normal Not Detected [facility] ([place]) Comment on above: Result Comment: If S taphylococcus aureus is Detected, an Infectious Disease physician consult is required on identification. Performed By: #### B LAURA ####[address] [address] Staphylococcus epidermidis Detected Abnormal Not Detected [facility] ([place]) Comment on above: Performed By: #### B LAURA ####[facility] [place] [address] Staphylococcus lugdunensis Not detected Normal Not Detected [facility] ([place]) Comment on above: Performed By: #### B LAURA ####[address] [address] Stenotropomonas maltophilia Not detected Normal Not Detected [facility] ([place]) Comment on above: Performed By: #### B LAURA ####[facility] [place] [address] Streptococcus Not detected Normal Not Detected [facility] ([place]) Comment on above: Performed By: #### B LAURA ####[facility] [place] [address] Streptococcus pneumoniae Not detected Normal Not Detected [facility] ([place]) Comment on above: Performed By: #### B LAURA ####[address] [address] Streptococcus pyogenes Not detected Normal Not Detected [facility] ([place]) Comment on above: Performed By: #### B LAURA ####[address] [address] Van A/B Not Applicable Normal Not Detected [facility] ([place]) Comment on above: Performed By: #### B LAURA ####[place] [address] VIM (Carbapenemase) Not Applicable Normal Not Detected [facility] ([place] Comment on above: Performed By: #### B LAURA ####[place] [address] BMPon 10-01-2022 BUN/Creatinine Ratio 20.9 ratio Normal 10.0-22.0 [facility] ([place]) Comment on above: Performed By: #### C BC, ADIFF, BMP, GFR, ANEU, LAC ####[place] [address] Calcium [Mass/Vol] 8.2 mg/dL Low 8.7-10.4 [facility] ([place]) Comment on above: Performed By: #### C BC, ADIFF, BMP, GFR, ANEU, LAC ####[place] [address] Chloride [Moles/Vol] 98 mmol/L Normal 98-110 [facility] ([place]) Comment on above: Performed By: #### C BC, ADIFF, BMP, GFR, ANEU, LAC ####[place] [address] CO2 [Moles/Vol] 28 mmol/L Normal 22-32 [facility] ([place]) Comment on above: Performed By: #### C BC, ADIFF, BMP, GFR, ANEU, LAC ####[place] [address] Creatinine [Mass/Vol] 0.86 mg/dL Normal 0.50-1.20 [facility] ([place]) Comment on above: Performed By: #### C BC, ADIFF, BMP, GFR, ANEU, LAC ####[place] [address] Electrolyte Balance 8.0 mEq/L Normal 4.0-15.0 [facility] ([place]) Comment on above: Performed By: #### C BC, ADIFF, BMP, GFR, ANEU, LAC ####[place] [address] Glucose [Mass/Vol] 288 mg/dL High 82-115 [facility] ([place]) Comment on above: Performed By: #### C BC, ADIFF, BMP, GFR, ANEU, LAC ####[place] [id number] Potassium [Moles/Vol] 3.1 mmol/L Low 3.5-5.0 [facility] ([place]) Comment on above: Performed By: #### C BC, ADIFF, BMP, GFR, ANEU, LAC ####[place] [address] Sodium [Moles/Vol] 134 mmol/L Low 136-145 [facility] ([place] Comment on above: Performed By: #### C BC, ADIFF, BMP, GFR, ANEU, LAC ####[place] [address] Urea nitrogen [Mass/Vol] 18.0 mg/dL Normal 8.0-22.0 [facility] ([place]) Comment on above: Performed By: #### C BC, ADIFF, BMP, GFR, ANEU, LAC ####[place] [address] CBCon 10-01-2022 Erythrocyte distribution width (RBC) [Ratio] 14.7 % Normal 11.5-15.5 [facility] ([place]) Comment on above: Performed By: #### C BC, ADIFF, BMP, GFR, ANEU, LAC ####[place] [address] Hematocrit (Bld) [Volume fraction] 38.9 % Normal 34.0-46.0 [facility] ([place]) Comment on above: Performed By: #### C BC, ADIFF, BMP, GFR, ANEU, LAC ####[place] [address] Hgb 12.9 G/dL Normal 12.0-16.0 [facility] ([place] Comment on above: Performed By: #### C BC, ADIFF, BMP, GFR, ANEU, LAC ####[address] [address] MCH (RBC) [Entitic mass] 27.9 pg Normal 27.0-33.0 [facility] ([place] Comment on above: Performed By: #### C BC, ADIFF, BMP, GFR, ANEU, LAC ####[place] [address] MCHC 33.3 G/dL Normal 32.0-36.0 [facility] ([place] Comment on above: Performed By: #### C BC, ADIFF, BMP, GFR, ANEU, LAC ####[place] [address] MCV (RBC) [Entitic vol] 83.7 fL Normal 80.0-99.0 [facility] ([place] Comment on above: Performed By: #### C BC, ADIFF, BMP, GFR, ANEU, LAC ####[place] [address] Platelet 227 10 3/mcL Normal 150-450 [facility] ([place] Comment on above: Performed By: #### C BC, ADIFF, BMP, GFR, ANEU, LAC ####[place] [address] Platelet mean volume (Bld) [Entitic vol] 9.6 fL Normal 6.6-10.5 [facility] ([place]) Comment on above: Performed By: #### C BC, ADIFF, BMP, GFR, ANEU, LAC ####[place] [address] RBC 4.64 10 6/mcL Normal 4.10-5.30 [facility] ([place] Comment on above: Performed By: #### C BC, ADIFF, BMP, GFR, ANEU, LAC ####[place] [id number] WBC 21.5 10 3/mcL High 4.5-10.8 [facility] ([place]) Comment on above: Performed By: #### C BC, ADIFF, BMP, GFR, ANEU, LAC ####[address] [address] LABORATORYOrdered By: SYSTEM SYSTEM on 10-01-2022 CK [Catalytic activity/Vol] U/L 1 Invalid Interpretation Code 7 - 185 U/L AH ADM SS Comment on above: Result Comment: Spec vita slightly hemolyzed. LABORATORYOrdered By: Catie martinez on 10-01-2022 Lactate [Moles/Vol] 1.7 mmol/L Invalid Interpretation Code 0.2 - 2.0 mmol/L AH Auto Chem SS LABORATORYOrdered By: Godfrey Hill on 10-01-2022 Lactate [Moles/Vol] 2.2 mmol/L Invalid Interpretation Code 0.2 - 2.0 mmol/L AH Auto Chem SS LACon 10-01-2022 Lactic Acid Lvl 1.7 mmol/L Normal 0.2-2.0 [facility] ([place]) Comment on above: Order Comment: Order ed secondary to Lactic Acid result greater than or equal to 2.0 Performed By: #### C BC, ADIFF, BMP, GFR, ANEU, LAC ####[place] [address] Lactic Acid Lvl 2.2 mmol/L High 0.2-2.0 [facility] ([place]) Comment on above: Performed By: #### L AC ####[place] [address] No Panel Informationon 10-01 Microscopic examination of blood, culture Blood Culture: No Growth at 5 days. [facility] Microscopic examination of blood, culture Blood Culture: No Growth at 5 days. [facility] Microscopic examination of blood, culture Blood Culture: No Growth at 5 days. [facility] PROon 10-01-2022 INR Coag (PPP) [Relative time] 4.0 {INR} Normal [facility] ([place]) Comment on above: Result Comment: [employer] (CHEST, 1992, [id number])recommended therapeutic range for oral anticoagulant therapy is:LOW RISK: Prophylaxis of venous thrombosis INR: 2.0-3.0 Treatment of pulmonary embolism 2.0-3.0 Prevention of systemic embolism 2.0-3.0HIGH RISK: Mechanical prosthetic valves 2.5-3.5 Performed By: #### P RO ####[place] [id number] [address] [place] [address] PT Coag (PPP) [Time] 49.1 s High 9.0-14.8 [facility] ([place]) Comment on above: Result Comment: Effe ctive 10/03/07, Protime results may be affected by some antibiotics (i.e. Ciprofloxacin, Azithromycin, Bactrim) which may potentiate the action of oral anticoagulants, with further increases in Protime/INR. Performed By: #### P RO ####[facility] [place] [address] XR CHEST 1 VIEWon 10-01-2022 XR CHEST 1 VIEW Normal [facility] ([place]) XR RIBS 2 VIEWS LEFT/PA CHES T(AO)on 09-13-2022 XR RIBS 2 VIEWS LEFT/PA CHEST(AO) Normal [facility] ([place]) CBLon 07-31-2022 CBL Normal [facility]) LABORATORYOrdered By: Yazan Neely on 03-19-2021 Blood Glucose Interventions Administered agent to decrease blood sugar (03/19/21 7:46 AM) [facility] LABORATORYOrdered By: Denisa Grimm on 03-19-2021 Glucose [Mass/Vol] 192 mg/dL Invalid Interpretation Code 82 - 115 mg/dL [facility] LABORATORYOrdered By: Anna Roman on 03-19-2021 INR Coag (PPP) [Relative time] 1.2 {INR} Invalid Interpretation Code AH Auto Coag SS PT Coag (PPP) [Time] 14.1 s Invalid Interpretation Code 9.0 - 14.8 seconds AH Auto Coag SS LABORATORYOrdered By: Nathalia Velez on 03-18-2021 Blood Glucose Testing Reason Routine (03/18/21 5:33 PM) [facility] Glucose [Mass/Vol] 252 mg/dL Invalid Interpretation Code 82 - 115 mg/dL [facility] LABORATORYOrdered By: Kenyetta Hilario on 03-18-2021 Glucose [Mass/Vol] 211 mg/dL Invalid Interpretation Code 82 - 115 mg/dL [facility] LABORATORYOrdered By: Kenyetta Diaz on 03-18-2021 INR Coag (PPP) [Relative time] 1.2 {INR} Invalid Interpretation Code AH Auto Coag SS PT Coag (PPP) [Time] 14.4 s Invalid Interpretation Code 9.0 - 14.8 seconds AH Auto Coag SS LABORATORYOrdered By: Ghislaine Horne on 03-18-2021 ABO and Rh group Nom (Bld) Blood group B Rh(D) positive Invalid Interpretation Code AH BB Auto SS Blood group antibody screen Ql NEG (03/18/21 9:10 AM) Invalid Interpretation Code AH BB Auto SS LABORATORYOrdered By: SYSTEM SYSTEM on 03-18-2021 Basophils (Bld) [#/Vol] 0.10 103/mcL Invalid Interpretation Code 0.00 - 0.27 10^3/mcL AH Remisol SS Basophils/100 WBC (Bld) 1.2 % Invalid Interpretation Code 0.0 - 2.5 % AH Remisol SS Calcium [Mass/Vol] 9.5 mg/dL Invalid Interpretation Code 8.7 - 10.4 mg/dL AH ADM SS Chloride [Moles/Vol] 104 mmol/L Invalid Interpretation Code 98 - 110 mEq/L AH ADM SS CO2 [Moles/Vol] 28 mmol/L Invalid Interpretation Code 22 - 32 mEq/L AH ADM SS Creatinine [Mass/Vol] 0.89 mg/dL Invalid Interpretation Code 0.50 - 1.20 mg/dL AH ADM SS Electrolyte Balance 5.0 mEq/L Invalid Interpretation Code 4.0 - 15.0 mEq/L AH ADM SS Eosinophils (Bld) [#/Vol] 0.30 103/mcL Invalid Interpretation Code 0.00 - 0.65 10^3/mcL AH Remisol SS Eosinophils/100 WBC (Bld) 4.0 % Invalid Interpretation Code 0.0 - 6.0 % AH Remisol SS Erythrocyte distribution width (RBC) [Ratio] 16.4 % Invalid Interpretation Code 11.5 - 15.5 % AH Remisol SS GFR/1.73 sq M.predicted among blacks MDRD (S/P/Bld) [Vol rate/Area] ml/min/1.73sqm Invalid Interpretation Code Chemistry S GFR/1.73 sq M.predicted among non-blacks MDRD (S/P/Bld) [Vol rate/Area] ml/min/1.73sqm Invalid Interpretation Code Chemistry S Glucose [Mass/Vol] 232 mg/dL Invalid Interpretation Code 82 - 115 mg/dL ADM SS Hematocrit (Bld) [Volume fraction] 44.0 % Invalid Interpretation Code 34.0 - 46.0 % Remisol SS Hemoglobin (Bld) [Mass/Vol] 14.3 G/dL Invalid Interpretation Code 12.0 - 16.0 G/dL AH Remisol SS Lymphocytes (Bld) [#/Vol] 1.50 103/mcL Invalid Interpretation Code 0.90 - 4.32 10^3/mcL Remisol SS Lymphocytes/100 WBC (Bld) 21.4 % Invalid Interpretation Code 20.0 - 40.0 % Remisol SS MCH (RBC) [Entitic mass] 26.4 pg Invalid Interpretation Code 27.0 - 33.0 pg Remisol SS MCHC (RBC) [Mass/Vol] 32.5 G/dL Invalid Interpretation Code 32.0 - 36.0 G/dL AH Remisol SS MCV (RBC) [Entitic vol] 81.4 fL Invalid Interpretation Code 80.0 - 99.0 fL Remisol SS Monocytes (Bld) [#/Vol] 0.70 103/mcL Invalid Interpretation Code 0.09 - 1.40 10^3/mcL AH Remisol SS Monocytes/100 WBC (Bld) 10.3 % Invalid Interpretation Code 2.0 - 13.0 % Remisol SS Neutrophils (Bld) [#/Vol] 4.40 103/mcL Invalid Interpretation Code 2.25 - 8.10 10^3/mcL AH Remisol SS Neutrophils/100 WBC (Bld) 63.1 % Invalid Interpretation Code 50.0 - 75.0 % AH Remisol SS Platelet mean volume (Bld) [Entitic vol] 8.9 fL Invalid Interpretation Code 6.6 - 10.5 fL AH Remisol SS Platelets (Bld) [#/Vol] 196 103/mcL Invalid Interpretation Code 150 - 450 10^3/mcL AH Remisol SS Potassium [Moles/Vol] 4.3 mmol/L Invalid Interpretation Code 3.5 - 5.0 mEq/L AH ADM SS RBC (Bld) [#/Vol] 5.40 106/mcL Invalid Interpretation Code 4.10 - 5.30 10^6/mcL AH Remisol SS Sodium [Moles/Vol] 137 mmol/L Invalid Interpretation Code 136 - 145 mEq/L AH ADM SS Urea nitrogen [Mass/Vol] 17.0 mg/dL Invalid Interpretation Code 8.0 - 22.0 mg/dL AH ADM SS Urea nitrogen/Creatinine [Mass ratio] 19.1 ratio Invalid Interpretation Code 10.0 - 22.0 ratio AH ADM SS WBC (Bld) [#/Vol] 6.90 103/mcL Invalid Interpretation Code 4.50 - 10.80 10^3/mcL AH Remisol SS LABORATORYOrdered By: SYSTEM SYSTEM on 01-15-2021 Basophils (Bld) [#/Vol] 0.10 103/mcL Invalid Interpretation Code 0.00 - 0.27 10^3/mcL AH Remisol SS Basophils/100 WBC (Bld) 1.0 % Invalid Interpretation Code 0.0 - 2.5 % AH Remisol SS Calcium [Mass/Vol] 9.3 mg/dL Invalid Interpretation Code 8.7 - 10.4 mg/dL AH ADM SS Chloride [Moles/Vol] 106 mmol/L Invalid Interpretation Code 98 - 110 mEq/L AH ADM SS CO2 [Moles/Vol] 27 mmol/L Invalid Interpretation Code 22 - 32 mEq/L AH ADM SS Creatinine [Mass/Vol] 0.80 mg/dL Invalid Interpretation Code 0.50 - 1.20 mg/dL AH ADM SS Electrolyte Balance 6.0 mEq/L Invalid Interpretation Code 4.0 - 15.0 mEq/L AH ADM SS Eosinophils (Bld) [#/Vol] 0.10 103/mcL Invalid Interpretation Code 0.00 - 0.65 10^3/mcL AH Remisol SS Eosinophils/100 WBC (Bld) 2.1 % Invalid Interpretation Code 0.0 - 6.0 % AH Remisol SS Erythrocyte distribution width (RBC) [Ratio] 15.6 % Invalid Interpretation Code 11.5 - 15.5 % AH Remisol SS GFR/1.73 sq M.predicted among blacks MDRD (S/P/Bld) [Vol rate/Area] ml/min/1.73sqm Invalid Interpretation Code Chemistry S GFR/1.73 sq M.predicted among non-blacks MDRD (S/P/Bld) [Vol rate/Area] ml/min/1.73sqm Invalid Interpretation Code Chemistry S Glucose [Mass/Vol] 232 mg/dL Invalid Interpretation Code 82 - 115 mg/dL ADM SS Hematocrit (Bld) [Volume fraction] 41.5 % Invalid Interpretation Code 34.0 - 46.0 % AH Remisol SS Hemoglobin (Bld) [Mass/Vol] 13.2 G/dL Invalid Interpretation Code 12.0 - 16.0 G/dL AH Remisol SS Lymphocytes (Bld) [#/Vol] 1.20 103/mcL Invalid Interpretation Code 0.90 - 4.32 10^3/mcL AH Remisol SS Lymphocytes/100 WBC (Bld) 20.0 % Invalid Interpretation Code 20.0 - 40.0 % AH Remisol SS MCH (RBC) [Entitic mass] 26.9 pg Invalid Interpretation Code 27.0 - 33.0 pg AH Remisol SS MCHC (RBC) [Mass/Vol] 31.9 G/dL Invalid Interpretation Code 32.0 - 36.0 G/dL AH Remisol SS MCV (RBC) [Entitic vol] 84.3 fL Invalid Interpretation Code 80.0 - 99.0 fL AH Remisol SS Monocytes (Bld) [#/Vol] 0.50 103/mcL Invalid Interpretation Code 0.09 - 1.40 10^3/mcL AH Remisol SS Monocytes/100 WBC (Bld) 8.8 % Invalid Interpretation Code 2.0 - 13.0 % AH Remisol SS Neutrophils (Bld) [#/Vol] 4.00 103/mcL Invalid Interpretation Code 2.25 - 8.10 10^3/mcL AH Remisol SS Neutrophils/100 WBC (Bld) 68.1 % Invalid Interpretation Code 50.0 - 75.0 % AH Remisol SS Platelet mean volume (Bld) [Entitic vol] 9.7 fL Invalid Interpretation Code 6.6 - 10.5 fL AH Remisol SS Platelets (Bld) [#/Vol] 197 103/mcL Invalid Interpretation Code 150 - 450 10^3/mcL AH Remisol SS Potassium [Moles/Vol] 3.5 mmol/L Invalid Interpretation Code 3.5 - 5.0 mEq/L AH ADM SS RBC (Bld) [#/Vol] 4.92 106/mcL Invalid Interpretation Code 4.10 - 5.30 10^6/mcL AH Remisol SS Sodium [Moles/Vol] 139 mmol/L Invalid Interpretation Code 136 - 145 mEq/L AH ADM SS Urea nitrogen [Mass/Vol] 17.0 mg/dL Invalid Interpretation Code 8.0 - 22.0 mg/dL AH ADM SS Urea nitrogen/Creatinine [Mass ratio] 21.2 ratio Invalid Interpretation Code 10.0 - 22.0 ratio AH ADM SS WBC (Bld) [#/Vol] 5.90 103/mcL Invalid Interpretation Code 4.50 - 10.80 10^3/mcL AH Remisol SS LABORATORYOrdered By: Joe Pascual on 01-15-2021 INR Coag (PPP) [Relative time] 2.1 {INR} Invalid Interpretation Code AH Auto Coag SS PT Coag (PPP) [Time] 24.7 s Invalid Interpretation Code 9.0 - 14.8 seconds AH Auto Coag SS Vital Signs Date Time Vital Sign Value Performing Clinician Aurai francine 04-18-2023 18:37-0500 Heart rate 76 /min DR FRAN STEEN MD [facility] 04-18-2023 18:37-0500 Reason For Taking VItal Signs DR FRAN STEEN MD [facility] 04-18-2023 18:06-0500 Heart rate 70 /min DR FRAN STEEN MD [facility] 04-18-2023 16:31-0500 Heart rate 73 /min DR FRAN STEEN MD [facility] 04-18-2023 16:24-0500 Diastolic Blood Pressure Non-Invasive 80 mm[Hg] DR FRAN STEEN MD [facility] 04-18-2023 16:24-0500 Systolic Blood Pressure Non-Invasive 140 mm[Hg] DR FRAN STEEN MD [facility] 04-18-2023 16:22-0500 Heart rate 73 /min DR FRAN STEEN MD [address] 04-18-2023 16:22-0500 Reason For Taking VItal Signs DR FRAN STEEN MD [address] 04-18-2023 16:09-0500 Reason For Taking VItal Signs DR FRAN STEEN MD [address] 04-18-2023 14:55-05[address] Cuff Size DR FRAN STEEN MD [address] [place] [address] 04-18-2023 14:55-[address] FRAN STEEN MD [address] [place] [address] 04-18-2023 14:55-[address] FRAN STEEN MD [address] [place] [address] 04-18-2023 14:55-0500 Body temperature 97.88 [degF] DR FRAN STEEN MD [address] [place] [address] 04-18-2023 14:55-0500 Diastolic Blood Pressure Non-Invasive 64 mm[Hg] DR FRAN STEEN MD [address] [place] [address] 04-18-2023 14:55-0500 Respiratory rate 20 /min DR FRAN STEEN MD [address] 04-18-2023 14:55-0500 Systolic Blood Pressure Non-Invasive 148 mm[Hg] DR FRAN STEEN MD [address] [place] [address] 04-18-2023 11:12-05[address] Pressure Cuff Size DR FRAN STEEN MD [address] 04-18-2023 11:12-[address] FRAN STEEN MD [address] [place] [address] 04-18-2023 11:12-[address] FRAN STEEN MD [address] [place] [address] 04-18-2023 11:12-0500 Body temperature 97.7 [degF] DR FRAN STEEN MD [address] 04-18-2023 11:12-0500 Diastolic Blood Pressure Non-Invasive 52 mm[Hg] DR FRAN STEEN MD [address] [place] [address] 04-18-2023 11:12-0500 Respiratory rate 18 /min DR FRAN STEEN MD [address] [place] [address] 04-18-2023 11:12-0500 Systolic Blood Pressure Non-Invasive 148 mm[Hg] DR FRAN STEEN MD [address] [place] [address] 04-18-2023 09:11-0500 Heart rate 75 /min DR FRAN STEEN MD [address] [place] [address] 04-18-2023 08:59-[address] FRAN STEEN MD [address] [place] [address] 04-18-2023 08:59-[address] FRAN STEEN MD [address] [place] [address] 04-18-2023 06:49-05[address] Blood [address] Cuff Size DR FRAN STEEN MD [address] [place] [address] 04-18-2023 06:49-0500 Body temperature 97.88 [degF] DR FRAN STEEN MD [address] [place] [address] 04-18-2023 06:49-0500 Respiratory rate 16 /min DR FRAN STEEN MD [address] [place] [address] 04-17-2023 16:48-0500 Heart rate 72 /min DR FRAN STEEN MD [address] [place] [address] 04-16-2023 04:26-0500 Mean blood pressure 104 mm[Hg] DR FRAN STEEN MD [address] [place] [address] 04-15-2023 17:30-0500 Mean blood pressure 150 mm[Hg] DR FRAN STEEN MD [address] [place] [address] 04-15-2023 17:00-0500 Mean blood pressure 117 mm[Hg] DR FRAN STEEN MD [address] [place] [address] 04-14-2023 11:45-0500 Body temperature 96.44 [degF] DR FRAN STEEN MD [facility] 04-10-2023 20:00-0500 Body height 170.[address] FRAN STEEN MD [facility] 04-10-2023 20:00-0500 Body weight 100.[address] FRAN STEEN MD [facility] 04-10-2023 20:00-0500 Body weight 34.66 kg/m2 DR FRAN STEEN MD [facility] 10-14-2022 21:11-0400 Diastolic Blood Pressure Non-Invasive 70 1 YADIEL FAN MD [facility] 10-14-2022 21:11-0400 Systolic Blood Pressure Non-Invasive 128 1 YADIEL FAN MD [address] [place] [address] 10-14-2022 19:44-0400 Reason For Taking VItal Signs YADIEL FAN MD [facility] 10-14-2022 19:41-0400 Body temperature 98.78 [degF] YADIEL FAN MD [facility] 10-14-2022 19:41-0400 Diastolic Blood Pressure Non-Invasive 65 1 YADIEL FAN MD [facility] 10-14-2022 19:41-0400 Heart rate 73 /min YADIEL FAN MD [facility] 10-14-2022 19:41-0400 Reason For Taking VItal Signs YADIEL FAN MD [facility] 10-14-2022 19:41-0400 Respiratory rate 18 /min YADIEL FAN MD [facility] 10-14-2022 19:41-0400 Systolic Blood Pressure Non-Invasive 117 1 YADIEL FAN MD [facility] 10-14-2022 15:12-0400 Body temperature 99.32 [degF] YADIEL FAN MD [facility] 10-14-2022 15:12-0400 Diastolic Blood Pressure Non-Invasive 77 1 YADIEL FAN MD [facility] 10-14-2022 15:12-0400 Heart rate 71 /min YADIEL FAN MD [facility] 10-14-2022 15:12-0400 Reason For Taking VItal Signs YADIEL FAN MD [facility] 10-14-2022 15:12-0400 Respiratory rate 18 /min YADIEL FAN MD [facility] 10-14-2022 15:12-0400 Systolic Blood Pressure Non-Invasive 138 1 YADIEL FAN MD [facility] 10-14-2022 10:22-0400 Blood Pressure Cuff Size YADIEL FAN MD [facility] 10-14-2022 10:22-0400 Blood Pressure Location YADIEL FAN MD [facility] 10-14-2022 10:22-0400 Blood Pressure Method YADIEL FAN MD [facility] 10-14-2022 10:22-0400 Body temperature 99.14 [degF] YADIEL FAN MD [facility] 10-14-2022 10:22-0400 Heart rate 72 /min YADIEL FAN MD [facility] 10-14-2022 10:22-0400 Respiratory rate 18 /min YADIEL FAN MD [facility] 10-14-2022 06:50-0400 Blood Pressure Cuff Size YADIEL FAN MD [facility] 10-14-2022 06:50-0400 Blood Pressure Location YADIEL FAN MD [facility] 10-14-2022 06:50-0400 Blood Pressure Method YADIEL FAN MD [facility] 10-14-2022 06:50-0400 Heart rate 71 /min YADIEL FAN MD [facility] 10-14-2022 03:26-0400 Blood Pressure Cuff Size YADIEL FAN MD [address] [place] [address] 10-14-2022 03:26-0400 Blood Pressure Location YADIEL FAN MD [facility] 10-14-2022 03:26-0400 Blood Pressure Method YADIEL FAN MD [facility] 10-14-2022 03:26-0400 Heart rate 70 /min YADIEL FAN MD [facility] 10-13-2022 22:31-0400 Heart rate 71 /min YADIEL FAN MD [facility] 10-12-2022 18:57-0400 Mean blood pressure 89 mm[Hg] YADIEL FAN MD [facility] 10-12-2022 03:30-0400 Heart rate 76 /min YADIEL FAN MD [facility] 10-11-2022 18:30-0400 Mean blood pressure 98 mm[Hg] YADIEL FAN MD [facility] 10-11-2022 14:46-0400 Mean blood pressure 92 mm[Hg] YADIEL FAN MD [facility] 10-09-2022 22:56-0400 Heart rate 70 /min YADIEL FAN MD [address] [place] [address] 10-07-2022 13:40-0400 Heart rate 70 /min YADIEL FAN MD [address] [place] [address] 10-05-2022 09:35-0400 Body temperature 96.8 [degF] YADIEL FAN MD [address] 10-05-2022 09:10-0400 Respiratory Rate - Anes 0 br/min YADIEL FAN MD [address] [place] [address] 10-05-2022 09:05-0400 Respiratory Rate - Anes 0 br/min YADIEL FAN MD [address] [place] [address] 10-05-2022 09:02-0400 Body temperature 96.8 [degF] YADIEL FAN MD [address] [place] [address] 10-05-2022 08:45-0400 Body temperature 97.41 [degF] YADIEL FAN MD [address] [place] [address] 10-05-2022 08:40-0400 Body temperature 97.43 [degF] YADIEL FAN MD [address] [place] [address] 10-05-2022 08:35-0400 Body temperature 97.41 [degF] YADIEL FAN MD [address] [place] [address] 10-03-2022 14:20-0400 Body temperature 96.8 [degF] YADIEL FAN MD [address] [place] [address] 10-02-2022 18:10-0400 Body height 170.2 cm YADIEL FAN MD [address] [place] [address] 10-02-2022 18:10-0400 Body weight 99.3 kg YADIEL FAN MD [address] [place] [address] 10-02-2022 18:10-0400 Body weight 34.28 kg/m2 YADIEL FAN MD [address] [place] [address] 03-19-2021 07:46-0500 Diastolic blood pressure 82 mm[Hg] AUBREY HAMLIN MD [facility] 03-19-2021 07:46-0500 Heart rate 60 /min AUBREY HAMLIN MD [facility] 03-19-2021 07:46-0500 Respiratory rate 16 /min AUBREY HAMLIN MD [address] [place] [address] 03-19-2021 07:46-0500 Systolic blood pressure 122 mm[Hg] AUBREY HAMLIN MD [address] [place] [address] 03-19-2021 04:15-0500 Body temperature 97.88 [degF] AUBREY HAMLIN MD [address] [place] [address] 03-19-2021 04:15-0500 Diastolic Blood Pressure NBP 72 1 AUBREY HAMLIN MD [facility] 03-19-2021 04:15-0500 Heart rate 86 /min AUBREY HAMLIN MD [facility] 03-19-2021 04:15-0500 Respiratory rate 20 /min AUBREY HAMLIN MD [facility] 03-19-2021 04:15-0500 Systolic Blood Pressure NBP 135 1 AUBREY HAMLIN MD [address] [place] [address] 03-18-2021 23:57-0500 Heart rate 73 /min AUBREY HAMLIN MD [facility] 03-18-2021 23:09-0500 Heart rate 78 /min AUBREY HAMLIN MD [facility] 03-18-2021 22:02-0500 Diastolic blood pressure 77 mm[Hg] AUBREY HAMLIN MD [facility] 03-18-2021 22:02-0500 Systolic blood pressure 132 mm[Hg] AUBREY HAMLIN MD [facility] 03-18-2021 19:46-0500 Body temperature 98.6 [degF] AUBREY HAMLIN MD [facility] 03-18-2021 19:46-0500 Diastolic Blood Pressure NBP 63 1 AUBREY HMALIN MD [facility] 03-18-2021 19:46-0500 Systolic Blood Pressure NBP 105 1 AUBREY HAMLIN MD [facility] 03-18-2021 15:27-0500 Diastolic blood pressure 80 mm[Hg] AUBREY HAMLIN MD [facility] 03-18-2021 15:27-0500 Heart rate 79 /min AUBREY HAMLIN MD [facility] 03-18-2021 15:27-0500 Systolic blood pressure 144 mm[Hg] AUBREY HAMLIN MD [facility] 03-18-2021 13:48-0500 Heart rate 79 /min AUBREY HAMLIN MD [facility] 03-18-2021 12:53-0500 Heart rate 79 /min AUBREY HAMLIN MD [facility] 03-18-2021 12:30-0500 Heart rate 81 /min AUBREY HAMLIN MD [facility] 03-18-2021 09:06-0500 Body height 170.2 cm AUBREY HAMLIN MD [facility] 03-18-2021 09:06-0500 Body weight 109 kg AUBREY HAMLIN MD [facility] 03-18-2021 09:06-0500 Body weight 37.63 kg/m2 AUBREY HAMLIN MD [facility] 03-18-2021 08:54-0500 Body height 170.2 cm AUBREY HAMLIN MD [facility] 03-18-2021 08:54-0500 Body temperature 98.24 [degF] AUBREY HAMLIN MD [facility] 03-18-2021 08:54-0500 Body weight 109 kg AUBREY HAMLIN MD [facility] 03-18-2021 08:54-0500 Diastolic Blood Pressure NBP 97 1 AUBREY HAMLIN MD [facility] 03-18-2021 08:54-0500 Systolic Blood Pressure NBP 146 1 AUBREY HAMLIN MD [facility] 01-15-2021 14:50-0400 Diastolic blood pressure 88 mm[Hg] DR FRAN GRULLON MD [facility] 01-15-2021 14:50-0400 Heart rate 56 /min DR FRAN GRULLON MD [facility] 01-15-2021 14:50-0400 Mean blood pressure 105 mm[Hg] DR FRAN GRULLON MD [facility] 01-15-2021 14:50-0400 Respiratory rate 20 /min DR FRAN GRULLON MD [facility] 01-15-2021 14:50-0400 Systolic blood pressure 140 mm[Hg] DR FRAN GRULLON MD [facility] 01-15-2021 14:35-0400 Diastolic Blood Pressure NBP [address] FRAN GRULLON MD [address] [place] [address] 01-15-2021 14:35-0400 Heart rate 55 /min DR FRAN GRULLON MD [facility] 01-15-2021 14:35-0400 Respiratory rate 16 /min DR FRAN GRULLON MD [facility] 01-15-2021 14:35-0400 Systolic Blood Pressure NBP [address] FRAN GRULLON MD [facility] 01-15-2021 14:30-0400 Diastolic Blood Pressure NBP [address] FRNA GRULLON MD [facility] 01-15-2021 14:30-0400 Heart rate 72 /min DR FRAN GRULLON MD [facility] 01-15-2021 14:30-0400 Respiratory rate 16 /min DR FRAN GRULLON MD [facility] 01-15-2021 14:30-0400 Systolic Blood Pressure NBP [address] FRAN GRULLON MD [facility] 01-15-2021 14:25-0400 Body temperature 97.34 [degF] DR FRAN GRULLON MD [facility] 01-15-2021 14:25-0400 Diastolic Blood Pressure NBP [address] FRAN GRULLON MD [facility] 01-15-2021 14:25-0400 Systolic Blood Pressure NBP [address] FRAN GRULLON MD [facility] 01-15-2021 14:03-0400 diastolic 84 mm[Hg] DR FRAN GRULLON MD [facility] 01-15-2021 14:03-0400 systolic 151 mm[Hg] DR FRAN GRULLON MD [facility] 01-15-2021 11:27-0400 Body height 170.[address] FRAN GRULLON MD [facility] 01-15-2021 11:27-0400 Body temperature 97.88 [degF] DR FRAN GRULLON MD [facility] 01-15-2021 11:27-0400 Body weight 109.[address] FRAN GRULLON MD [facility] 01-15-2021 11:27-0400 Body weight 37.66 kg/m2 DR FRAN GRULLON MD [facility] 01-15-2021 11:27-0400 diastolic 84 mm[Hg] DR FRAN GRULLON MD [facility] 01-15-2021 11:27-0400 Heart rate 88 /min DR FRAN GRULLON MD [facility] 01-15-2021 11:27-0400 systolic 142 mm[Hg] DR FRAN GRULLON MD [facility] Encounters Encounter Date Encounter Type Care Provider Facility Start: 10-10-2024 End: 10-15-2024 [facility] Start: 09-28-2024 ambulatory Batsheva Fox Facility :[facility] Start: 09-16-2024 End: 09-18-2024 [facility] Start: 08-20-2024 End: 09-17-[address] Bats[facility] O[facility]ied[facility] Work Phone: Start: 08-20-2024 End: 09-17-[address] Batsheva Fox DO Work Phone: [facility] Start: 08-12-2024 End: 08-16-2024 ambulatory YONATHAN KUNZ [facility] Start: 07-13-2024 End: 07-13-2024 [facility] Start: 06-22-2024 ambulatory AUBREY HAMLIN MD Facility: Start: 05-07-2024 End: 05-11-2024 ambulatory LAUREN WALLACE [facility] [employer] [facility] Facility:[facility] Start: 05-07-2024 End: 05-11-2024 Outreach Lab LAUREN WALLACE [employer] [facility] Start: 04-09-2024 End: 04-15-2024 ambulatory YONATHAN COBB [facility] Start: 04-04-2024 End: 04-05-2024 Evaluation and management of inpatient BATSHEVA VIRAMONTESSAY [facility] Start: 05-04-2023 Emergency department patient visit ENEDINA Samuel VIDHI [facility] Start: 04-20-2023 End: 05-25-2023 ambulatory BATSHEVA FOX DO Facility:R Start: 04-10-2023 End: 04-18-2023 Evaluation and management of inpatient AUBREY HAMLIN MD Facility:A Start: 04-10-2023 End: 04-18-2023 Evaluation and management of inpatient DR FRAN STEEN MD [facility] Start: 03-29-2023 End: 03-29-2023 Emergency department patient visit [facility] Start: 02-28-2023 End: 03-01-2023 ambulatory CECILIO FOX [employer] Facility:A Start: 11-04-2022 ambulatory BATSHEVA FOX DO Facil ity:A Start: 10-21-2022 End: 10-22-2022 ambulatory BATSHEVA FOX DO Facility:A Start: 10-01-2022 End: 10-14-2022 Evaluation and management of inpatient JOSE ANTONIO FOX MD Facility:A Start: 09-30-2022 End: 10-14-2022 Evaluation and management of inpatient YADIEL FAN MD [facility] Start: 09-09-2022 End: 09-10-2022 ambulatory BATSHEVA FOX DO Facility:B Start: 09-09-2022 End: 09-09-2022 Patient encounter procedure BATSHEVA FOX DO [facility] Start: 03-18-2021 End: 03-19-2021 Observation AUBREY HAMLIN MD [facility] Start: 01-15-2021 End: 01-15-[address] FRAN GRULLON MD [facility] Start: 05-04-2019 End: 05-04-2019 Refill Gigi Hernández Work Phone: [facility] Comment on above: Bipolar 2 disorder ( HCC) Start: 11-03-2016 End: 11-03-2016 Ambulatory [facility] Procedures Date Procedure Procedure Detail Performing Clinician Start: 10-11-2024 Urinalysis YONATHAN VALENCIA Comment on above: Result Comment: URIN ALYSIS Performed By: #### [id number] ####[place] [address] Start: 09-16-2024 Urinalysis YONATHAN VALENCIA Comment on above: Result Comment: URIN ALYSIS Performed By: #### [id number] ####[facility],[address] [place] [address] Start: 08-12-2024 Urinalysis YONATHAN VALENCIA Comment on above: Result Comment: URIN ALYSIS Performed By: #### [id number] ####[facility],[address] [place] [address] Start: 04-03-2024 Urinalysis YONATHAN VALENCIA Comment on above: Result Comment: URIN ALYSIS Performed By: #### [id number] ####[facility],[address] [place] [address] Start: 10-05-2022 Debridement of wound of skin DR FRAN STEEN MD Comment on above: UPPER BACK WOUND KWAME RIDEMENT AND WOUND VAC CHANGE, with sharp, blunt and electrocautery debridement down to muscle 14x9x2.5 with tunneling 2cm upper left Start: 10-03-2022 Debridement of wound of skin DR FRAN STEEN MD Comment on above: Wound Debridement wi th Application of Wo, DRAINAGE OF BACK ABSCESS. PLACEMENT OF WOUND VAC greater than 50 cm , sharp excisional debridement Start: 03-18-2021 Cardiac pacemaker, pepe whiteheadice (physical object) AUBREY HAMLIN MD Comment on above: Dual chamber pacemak er implanted by Dr. Hamlin on 03/18/2021 at [facility]. Pacemaker generator is a Medtronic Seda XT DR MRI model #W1DR01, serial #[id number]. RA lead is a Medtronic CapSureFix Novus MRI SureScan model #4076/52cm, serial #[id number]. RV lead is a Medtronic CapSureFix Novus MRI SureScan model #4076/58cm, serial #[id number]. Start: 11-13-2019 ECG: presence findin gs (finding) DR FRAN GRULLON MD Comment on above: A-fib with RVR, RBBB Start: 10-29-2019 ECG: presence findin gs (finding) DR FRAN GRULLON MD Comment on above: Sinus tachycardia wi th 1st AV block, RBBB Start: 10-29-[address] GIOVANNY GRULLON MD Comment on above: EF 65% Start: 09-19-2019 Cataract (disorder) DR FRAN GRULLON MD Comment on above: right eye Start: 11-08-2018 Adult depression scr eening assessment Gigi Ickes Start: 03-09-[address] FRAN GRULLON MD Comment on above: Normal left ventricu lar function. Normal left ventricular hemodynamics. Normal coronary cineangiography. Start: 02-13-[address] GIOVANNY GRULLON MD Comment on above: EF 65% Start: 01-20-[address] FRAN BALLESTEROS MD Comment on above: Bladder Start: 09-08-2015 [address] stres s testing DR FRAN GRULLON MD Comment on above: No evidence of ische carlos Start: 02-21-[address] FRAN BALLESTEROS MD Start: 03-21-1989 Excision of breast tissue DR FRAN GRULLON MD Comment on above: bilateral Start: 12-06-[address] FRAN BALLESTEROS MD Start: 03-21-1987 Excision of breast tissue DR FRNA STEEN MD Comment on above: bilateral Start: 07-22-[address] FRAN BALLESTEROS MD Start: 03-21-1985 Surgery (qualifier value) DR FRAN GRULLON MD Comment on above: bilateral Tendon release Start: 03-21-[address] GIOVANNY GRULLON MD Start: 03-21-[address] FRAN HERNÁNDEZ MD Comment on above: abdominal approach partial Appendectomy DR FRAN AHMADI MD Biopsy of breast DR FRAN Beavers MD Comment on above: multiple Cholecystectomy DR FRAN PARKER MD Cholecystectomy DR FRAN STEEN MD Comment on above: after [address] curettage DR RAZIA GRULLON MD Entire elbow region (body structure) DR FRAN GRULLON MD Comment on above: nerve trapped Hysterectomy DR FRAN AHMADI MD Comment on above: partial Radical mastectomy DR FRAN RODRIGUEZ MD Comment on above: Bilateral - Age 37 Transesophageal echocardiography AUBREY HAMLIN MD Comment on above: Summary: 1. Left ventricle: The cavity size is normal. Wall thickness is normal. Systolic function is normal. 2. Ventricular septum: There is no evidence of a ventricular septal defect. 3. Aortic valve: There is no evidence of a vegetation. 4. Mitral valve: There is no evidence of vegetation. 5. Left atrium: There is no evidence of a thrombus in the atrial cavity or appendage. No spontaneous echo contrast is observed. 6. Pulmonic valve: There is no evidence of a vegetation. 7. Tricuspid valve: There is no evidence of a vegetation. There is moderate regurgitation. 8. Right atrium: There is no evidence of a thrombus in the atrial cavity or appendage. 9. Atrial septum: No defect or patent foramen ovale is identified. Echo contrast study following an increase in RA pressure induced by provocative maneuvers, shows no [id number] atrial level shunt. Plan of Treatment Date Care Activity Detail Author Start: 11-09-2019 Adult depression screening assessment DEPRESSION SCREENING [facility] Start: 06-13-2019 End: 06-13-2019 Office Visit 06/13/2019 Office Visit [facility] Gigi Hernández PA [address] [place] [address] [phone] [facility] Start: 11-19-2018 Influenza vaccination given INFLUENZA VACCINE (#1) [facility] Start: 2014 Fall risk assessment FALL RISK [facility] Start: 2014 Glaucoma screening GLAUCOMA/EYE EXAM AGE 65+ [facility] Start: 2014 Osteoporosis risk assessment done BONE DENSITY SCREENING [facility] Start: 2014 Pneumococcal polysaccharide vaccine (product) PNEUMONIA VACCINE (PCV13 PPSV23) (1 of 2 - PCV13) [facility] Start: 2009 Varicella-zoster vaccine (product) ADULT VZV VACCINE [facility] Start: 07-25-1999 Colonoscopy COLONOSCOPY 10 YR [facility] Start: 07-25-1999 Screening for malignant neoplasm of colon [facility] Start: 07-25-1999 SHINGLES VACCINE (1 of 2) SHINGLES VACCINE (1 of 2) [facility] Start: 1989 Screening mammography MAMMOGRAM [facility] Start: 1970 Tetanus, diphtheria and acellular pertussis vaccination TDAP/TD ADULT [facility] Start: 07-25-1967 ANNUAL WELLNESS VISIT ANNUAL WELLNESS VISIT [facility] Start: 1950 Hepatitis C screening HEPATITIS C SCREENING [facility] Immunizations Immunization Date Immunization Notes Care Provider Fa cility 04-15-2023 Influenza vaccine, quadrivalent, adjuvanted DR FRAN STEEN MD [facility] Comment on above: Result Comment: unab le to scan. verified dose/med/route with instructor Gaby Berrios RN and bedside nurse Justino RODRIGUEZ. 09-30-2022 tetanus toxoid, redu atiya diphtheria toxoid, and acellular pertussis vaccine, adsorbed DR FRAN STEEN MD [facility] 05-01-2020 SARS-CoV-2 (COVID-19 ) mRNA-1273 vaccine AUBREY HAMLIN MD [facility] 12-21-2019 influenza virus vaccine, unspecified formulation AUBREY HAMLIN MD [facility] 05-28-2019 tetanus toxoid, redu atiya diphtheria toxoid, and acellular pertussis vaccine, adsorbed AUBREY HAMLIN MD [facility] 02-25-2017 influenza virus vaccine, unspecified formulation [facility] 03-21-2014 influenza virus vaccine, unspecified formulation AUBREY HAMLIN MD [facility] 01-10-2014 influenza virus vaccine, unspecified formulation AUBREY HAMLIN MD [facility] Payers Date Payer Category Payer Self-pay 2024 Medicare [id number] 2024 Medicare [id number] 2023 Medicare [id number] 2022 Medicare [id number] 2022 Unknown [id number] 2014 Private Health Insurance AETNA AETNA SENIOR SUPPLEMENTAL xxxxxxxxxx 2014-Present [phone] Indemnity xxxxxxxxxx [id number] 1949 Unknown [id number] [id number] .627 1949 Unknown [id number] [id number] .627 1949 Unknown [id number] 2.16.840.1.177473.3.579.2 .62 1949 Unknown [id number] 2.16.840.1.777565.3.579.2 .62 1949 Unknown [id number] 2.16.840.1.367312.3.579.2 .62 1949 Unknown [id number] 2.16.840.1.869878.3.579.2 .62 1949 Unknown [id number] 2.16840.1.773171.3.579.2 .62 1949 Unknown [id number] 2.16.840.1.172170.3.579.2 .627 1949 Unknown [id number] 2.16.840.1.122705.3.579.2 .651 1949 Unknown [id number] 2.16.840.1.672541.3.579.2 .651 1949 Unknown [id number] 2.16.840.1.127441.3.579.2 .651 1949 Unknown [id number] 2.16.840.1.779632.3.579.2 .651 1949 Unknown [id number] 2.16.840.1.388457.3.579.2 .651 1949 Unknown [id number] [id number] .651 Medicare MEDICARE MEDICAR E PART A & B xxxxxxxxxxx Effective for all dates [address] [place] [address] Medicare xxxxxxxxxxx [id number] Private Health Insurance [id number] Unknown [id number] [id number] .462 Unknown [id number] [id number] .462 Social History Date Type Detail Facility Start: 11-08-2018 End: 10-30-2019 Tobacco smoking status NHIS Former smoker [facility] [employer] End: 11-08-2013 History of tobacco use Current smoker [facility] End: 11-08-2013 History of tobacco use Cigarette Smoker [facility] Start: 11-08-2018 Cigarettes smoked current (pack per day) - Reported [facility] [employer] Start: 11-08-2018 Alcohol intake 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 Diagnosis: E11.9. Frequent testing due to insulin use and fluctuating blood sugars., # 360 EA, 3 Refill(s), [facility] Start: 08-31-2022 See Instructions , Dispense ultrafine lancets, #360, use once lancet as directed 4 times daily to test blood sugar. Diagnosis: E11.9. Frequent testing due to insulin dependence and fluctuating blood sugars., # 360 EA, 3 Refill(s), [facility] Start: 08-31-2022 See Instructions , Dispense glucose test strips, #360, use 1 strip as directed 4 times daily to test blood sugar. Diagnosis: E11.9. Frequent testing due to insulin use and fluctuating blood sugars., # 360 EA, 3 Refill(s), Pharmacy: [facility], Diabetes mellitus type 2, insulin dependent, 161, cm, 08/31/22 13:09:00 EDT, Height, 97.2 Start: 08-31-2022 See Instructions , Dispense ultrafine lancets, #360, use once lancet as directed 4 times daily to test blood sugar. Diagnosis: E11.9. Frequent testing due to insulin dependence and fluctuating blood sugars., # 360 EA, 3 Refill(s), Pharmacy: [facility], Diabetes mellitus type 2, insulin dependent, 161, cm, 08/31/22 13:09:00 EDT, Height, 97.2 Start: 08-31-2022 See Instructions , Dispense glucose test strips, #200, use 1 strip twice daily to test blood sugar. Diagnosis: E11.9, # 200 EA, 3 Refill(s), Pharmacy: [facility], Diabetes mellitus type 2, insulin dependent, 159, cm, 01/18/24 13:24:00 EDT, Height, 100.7, kg, 01/18/24 13:24:00 EDT, Dosing Weight Start: 01-18-2024 See Instructions , Dispense ultrafine lancets, #200, use 1 lancet as directed twice daily to test blood sugar. Diagnosis: E11.9, # 200 EA, 3 Refill(s), Pharmacy: [facility], Diabetes mellitus type 2, insulin dependent, 159, cm, 01/18/24 13:24:00 EDT, Height, 100.7, kg, 01/18/24 13:24:00 EDT, Dosing Weight Start: 01-18-2024 Functional Status Date Assessment Result Facility 04-18-2023 Functional Status Room located n [facility] nursing station, Door open, Bathroom light on, Non-Slip footwear [facility] 04-18-2023 [address] [facility] 04-18-20[address] [facility] 04-18-2023 Functional Status Done [facility] 04-18-20[address] [facility] 04-18-[address] [facility] 04-17-2023 Functional Status [facility] 04-[facility] 04-17[facility] 04-17-2023 Functional Status Done [facility] 04-17-2023 Functional Status Breakfast Percent 100 [facility] 04-16-2023 Functional Status [facility] 04-16-2023 Functional Status Supervised [facility] 04-16-2023 [facility] Status [facility] 04-16-2023 [facility] Status [facility] 04-15-2023 [facility] Status [facility] 04-15-2023 [facility] Status [facility] 04-15-2023 Functional Status Initiated [facility] 04-15-2023 [facility] Status [facility] 04-14-2023 Functional Status Front wheeled walker [facility] 04-14-2023 Functional Status Patient Identified [facility] 04-12-2023 Functional Status [facility] 04-10-2023 Functional Status Sensory Deficits None [facility] 10-14-2022 Functional Status Room check performed [facility] 10-14-2022 Functional Status [facility] 10-14-2022 Functional Status [facility] 10-14-2022 Functional Status Min A 7 [facility] 10-13-2022 Functional Status [facility] 10-12-2022 Functional Status Hospital bed [facility] 10-12-2022 Functional Status [facility] 10-12-2022 Functional Status Supervised 8 [facility] 10-12-2022 Functional Status [facility] 10-11-2022 Functional Status [facility] 10-11-2022 Functional Status [facility] 10-11-2022 Functional Status [facility] 10-10-2022 Functional Status [facility] 10-10-2022 Functional Status Good [facility] 10-08-2022 Functional Status [facility] 10-08-2022 Functional Status [facility] 10-08-2022 Functional Status [facility] 10-07-2022 Functional Status Min A [facility] 10-07-2022 Functional Status [facility] 10-07-2022 Functional Status Breakfast Percent 100 A [facility] 10-06-2022 Functional Status [facility] 10-06-2022 Functional Status bilateral knee high [facility] 10-05-2022 Functional Status Skin Care Prev entative Intervention(s) heel(s)s elevated [facility] 10-05-2022 Functional Status Za [facility] 10-05-2022 Functional Status Maintained [facility] 10-05-2022 Functional Status [facility] 10-04-2022 Functional Status [facility] 10-03-2022 Functional Status Dinner Percent 100 [facility] 10-03-2022 Functional Status Patient Identified Iden tification band [facility] 10-03-2022 Functional Status bilateral knee high [facility] 10-02-2022 Functional Status Sensory Deficits None [facility] 10-02-2022 Functional Status COVID 19 Surge in Effec t Yes [facility] 10-02-2022 Functional Status [facility] 10-02-2022 Functional Status [facility] 10-02-2022 Functional Status [facility] 10-01-2022 Functional Status Assistive Equipment keira vated on pillows [facility] 10-01-2022 Functional Status aZ [facility] 10-01-2022 Functional Status [facility] 10-01-2022 Functional Status Living Situation Lives with family [facility] 10-01-2022 [facility] Status Date Assessment Result Facility [facility]-18[facility]23 [facility]18[facility]23 [facility]-17[facility]23 [facility] 10-14-[facility]22 Mental Status Orientation Oriented x 4 [facility] 10-14-2022 Mental Status [facility] 10-14-2022 Mental Status Orientation Assessment Orie nted x 4 [facility] 10-14-2022 Mental Status [facility] 10-13-2022 Mental Status [facility] 10-13-2022 Mental Status [facility] Clinical Notes 01-15-2021 to 08-18-2024 Note Date & Type Note Facility 08-18-2024 Note . MICRO - Microbiology PROCEDURE: Blood Culture (bacterial) [*1] SOURCE: Blood BODY SITE: COLLECTED DATE/TIME: 08/12/2024 17:15 EDT RECEIVED DATE/TIME: 08/13/2024 15:45 EDT START DATE/TIME: 08/13/2024 15:46 EDT FREE TEXT SOURCE: FINAL REPORTS Final Report [] Verified Date/Time/Personnel: 08/18/2024 15:59 EDT Blood Culture: No Growth at 5 days. PRELIMINARY REPORTS Preliminary Report [] Verified Date/Time/Personnel: 08/13/2024 16:59 EDT Culture has been received in lab and is no growth to date. Routine cultures are held for 5 days. Performing Locations *1: This test was performed at: [address], [address] [place] [address] 05-09-2024 Note . MICRO - Microbiology PROCEDURE: Culture Wound Aerobic with Gram Stain [*1] SOURCE: Wound (surface) BODY SITE: Leg L COLLECTED DATE/TIME: 05/07/2024 16:45 EST RECEIVED DATE/TIME: 05/07/2024 19:14 EST START DATE/TIME: 05/07/2024 19:14 EST FREE TEXT SOURCE: FINAL REPORTS Final Report [] Verified Date/Time/Personnel: 05/09/2024 08:53 EST Moderate normal skin es present. Sensitivity testing not indicated. PRELIMINARY REPORTS Preliminary Report [] Verified Date/Time/Personnel: 05/08/2024 11:04 EST Culture results pending. STAINS GS [] Verified Date/Time/Personnel: 05/07/2024 21:26 EST 2+ Epithelial cells No organisms seen. Performing Locations *1: This test was performed at: [address], [address] [place] [address] 04-08-2024 Note . MICRO - Microbiology PROCEDURE: Blood Culture (bacterial) [*1] SOURCE: Blood BODY SITE: COLLECTED DATE/TIME: 04/03/2024 03:05 EST RECEIVED DATE/TIME: 04/03/2024 16:10 EST START DATE/TIME: 04/03/2024 16:10 EST FREE TEXT SOURCE: FINAL REPORTS Final Report [] Verified Date/Time/Personnel: 04/08/2024 16:59 EST Blood Culture: No Growth at 5 days. PRELIMINARY REPORTS Preliminary Report [] Verified Date/Time/Personnel: 04/03/2024 16:59 EST Culture has been received in lab and is no growth to date. Routine cultures are held for 5 days. Performing Locations *1: This test was performed at: [address] 04-08-2024 Note . MICRO - Microbiology PROCEDURE: Blood Culture (bacterial) [*1] SOURCE: Blood BODY SITE: COLLECTED DATE/TIME: 04/03/2024 02:45 EST RECEIVED DATE/TIME: 04/03/2024 16:10 EST START DATE/TIME: 04/03/2024 16:10 EST FREE TEXT SOURCE: FINAL REPORTS Final Report [] Verified Date/Time/Personnel: 04/08/2024 16:59 EST Blood Culture: No Growth at 5 days. PRELIMINARY REPORTS Preliminary Report [] Verified Date/Time/Personnel: 04/03/2024 16:59 EST Culture has been received in lab and is no growth to date. Routine cultures are held for 5 days. Performing Locations *1: This test was performed at: [address], [address] [place] [address] 04-18-2023 Hospital Discharge instructions Patient Education 04/18/2023 18:24:31 Atrial Fibrillation, [id number] Atrial Fibrillation Atrial fibrillation is a type of heartbeat that is irregular or fast (rapid). If you have this condition, your heart beats without any order. This makes it hard for your heart to pump blood in a normal way. Having this condition gives you more risk for stroke, heart failure, and other heart problems. Atrial fibrillation may start all of a sudden and then stop on its own, or it may become a long-lasting problem. What are the causes? This condition may be caused by heart conditions, such as: High blood pressure. Heart failure. Heart valve disease. Heart surgery. Other causes include: Pneumonia. Obstructive sleep apnea. Lung cancer. Thyroid disease. Drinking too much alcohol. Sometimes the cause is not known. What increases the risk? You are more likely to develop this condition if: You smoke. You are older. You have diabetes. You are overweight. You have a family history of this condition. You exercise often and hard. What are the signs or symptoms? Common symptoms of this condition include: A feeling like your heart is beating very fast. Chest pain. Feeling short of breath. Feeling light-headed or weak. Getting tired easily. Follow these instructions at home: Medicines Take hvup-rox-jdkumsi and prescription medicines only as told by your doctor. If your doctor gives you a blood-thinning medicine, take it exactly as told. Taking too much of it can cause bleeding. Taking too little of it does not protect you against clots. Clots can cause a stroke. Lifestyle Do not use any tobacco products. These include cigarettes, chewing tobacco, and e-cigarettes. If you need help quitting, ask your doctor. Do not drink alcohol. Do not drink beverages that have caffeine. These include coffee, soda, and tea. Follow diet instructions as told by your doctor. Exercise regularly as told by your doctor. General instructions If you have a condition that causes breathing to stop for a short period of time (apnea), treat it as told by your doctor. Keep a healthy weight. Do not use diet pills unless your doctor says they are safe for you. Diet pills may make heart problems worse. Keep all follow-up visits as told by your doctor. This is important. Contact a doctor if: You notice a change in the speed, rhythm, or strength of your heartbeat. You are taking a blood-thinning medicine and you see more bruising. You get tired more easily when you move or exercise. You have a sudden change in weight. Get help right away if: You have pain in your chest or your belly (abdomen). You have trouble breathing. You have blood in your vomit, poop, or pee (urine). You have any signs of a stroke. BE FAST is an easy way to remember the main warning signs: ?B - Balance. Signs are dizziness, sudden trouble walking, or loss of balance. ?E - Eyes. Signs are trouble seeing or a change in how you see. ?F - Face. Signs are sudden weakness or loss of feeling in the face, or the face or eyelid drooping on one side. ?A - Arms. Signs are weakness or loss of feeling in an arm. This happens suddenly and usually on one side of the body. ?S - Speech. Signs are sudden trouble speaking, slurred speech, or trouble understanding what people say. ?T - Time. Time to call emergency services. Write down what time symptoms started. You have other signs of a stroke, such as: ?A sudden, very bad headache with no known cause. ?Feeling sick to your stomach (nausea). ?Throwing up (vomiting). ?Jerky movements you cannot control (seizure). These symptoms may be an emergency. Do not wait to see if the symptoms will go away. Get medical help right away. Call your local emergency services (911 in the [place] Do not drive yourself to the hospital. Summary Atrial fibrillation is a type of heartbeat that is irregular or fast (rapid). You are at higher risk of this condition if you smoke, are older, have diabetes, or are overweight. Follow your doctor's instructions about medicines, diet, exercise, and follow-up visits. Get help right away if you think that you have signs of a stroke. This information is not intended to replace advice given to you by your health care provider. Make sure you discuss any questions you have with your health care provider. Document Released: 12/14/2008 Document Revised: 05/11/2018 Document Reviewed: 04/28/2018 [employer] Patient Education 2020 [employer] 04/18/2023 18:24:25 Atrial Fibrillation, Eqof-vl-Sawx Atrial Fibrillation Atrial fibrillation is a type of heartbeat that is irregular or fast (rapid). If you have this condition, your heart beats without any order. This makes it hard for your heart to pump blood in a normal way. Having this condition gives you more risk for stroke, heart failure, and other heart problems. Atrial fibrillation may start all of a sudden and then stop on its own, or it may become a long-lasting problem. What are the causes? This condition may be caused by heart conditions, such as: High blood pressure. Heart failure. Heart valve disease. Heart surgery. Other causes include: Pneumonia. Obstructive sleep apnea. Lung cancer. Thyroid disease. Drinking too much alcohol. Sometimes the cause is not known. What increases the risk? You are more likely to develop this condition if: You smoke. You are older. You have diabetes. You are overweight. You have a family history of this condition. You exercise often and hard. What are the signs or symptoms? Common symptoms of this condition include: A feeling like your heart is beating very fast. Chest pain. Feeling short of breath. Feeling light-headed or weak. Getting tired easily. Follow these instructions at home: Medicines Take wbro-oxe-ybusypy and prescription medicines only as told by your doctor. If your doctor gives you a blood-thinning medicine, take it exactly as told. Taking too much of it can cause bleeding. Taking too little of it does not protect you against clots. Clots can cause a stroke. Lifestyle Do not use any tobacco products. These include cigarettes, chewing tobacco, and e-cigarettes. If you need help quitting, ask your doctor. Do not drink alcohol. Do not drink beverages that have caffeine. These include coffee, soda, and tea. Follow diet instructions as told by your doctor. Exercise regularly as told by your doctor. General instructions If you have a condition that causes breathing to stop for a short period of time (apnea), treat it as told by your doctor. Keep a healthy weight. Do not use diet pills unless your doctor says they are safe for you. Diet pills may make heart problems worse. Keep all follow-up visits as told by your doctor. This is important. Contact a doctor if: You notice a change in the speed, rhythm, or strength of your heartbeat. You are taking a blood-thinning medicine and you see more bruising. You get tired more easily when you move or exercise. You have a sudden change in weight. Get help right away if: You have pain in your chest or your belly (abdomen). You have trouble breathing. You have blood in your vomit, poop, or pee (urine). You have any signs of a stroke. BE FAST is an easy way to remember the main warning signs: ?B - Balance. Signs are dizziness, sudden trouble walking, or loss of balance. ?E - Eyes. Signs are trouble seeing or a change in how you see. ?F - Face. Signs are sudden weakness or loss of feeling in the face, or the face or eyelid drooping on one side. ?A - Arms. Signs are weakness or loss of feeling in an arm. This happens suddenly and usually on one side of the body. ?S - Speech. Signs are sudden trouble speaking, slurred speech, or trouble understanding what people say. ?T - Time. Time to call emergency services. Write down what time symptoms started. You have other signs of a stroke, such as: ?A sudden, very bad headache with no known cause. ?Feeling sick to your stomach (nausea). ?Throwing up (vomiting). ?Jerky movements you cannot control (seizure). These symptoms may be an emergency. Do not wait to see if the symptoms will go away. Get medical help right away. Call your local emergency services (911 in the [place] Do not drive yourself to the hospital. Summary Atrial fibrillation is a type of heartbeat that is irregular or fast (rapid). You are at higher risk of this condition if you smoke, are older, have diabetes, or are overweight. Follow your doctor's instructions about medicines, diet, exercise, and follow-up visits. Get help right away if you think that you have signs of a stroke. This information is not intended to replace advice given to you by your health care provider. Make sure you discuss any questions you have with your health care provider. Document Released: 12/14/2008 Document Revised: 05/11/2018 Document Reviewed: 04/28/2018 [employer] Patient Education 2020 [employer] Follow Up Care 04/10/2023 16:15:20 With:CECILIO FOX APRN-NAIL PULLER Address: [address] [facility] [address] [facility] [place] [address]- [phone] When:Within 2 Week(s) [facility] Pt, OT and [employer] after dc. They will contact you for first visit. [facility] number is [phone]. Address:Unknown When:1-2 days With:BATSHEVA FOX DO Address: [address] [place] [address] [phone] When: Unknown Comments:PLEASE CALL THIS OFFICE TO SCHEDULE A HOSPITAL FOLLOW UP APPOINTMENT. With:CECILIO FOX Address: [address] [place] [address] [place] [address]- [phone] When:04/21/2023 14:15:00 With:LEILA GARCIA Address: [address] [facility] [address] [place] [address]- [phone] When:05/26/2023 14:00:00 [facility] 04-18-2023 Note Discharge Instructions Thank you for allowing [facility] to assist you with your healthcare needs. The following is important discharge information regarding your hospital visit. Your Care Team BATSHEVA FOX DO Your Diagnosis Chronic urticaria HFrEF (heart failure with reduced ejection fraction) What to do next Scheduled Follow-Up Appointments Appointment Type When With Where Contact InformationCV OV Hospital Follow Up 04/21/2023 02:15 PM EST [facility] CV OV 05/26/2023 02:00 PM EST LEILA GARCIA [facility] CV Remote Procedure HM 06/22/2023 03:00 PM EDT [facility] CV Office Procedure PPM 03/22/2024 03:15 PM EST [facility] 03/22/2024 03:30 PM EST [facility] Follow Up Appointments Follow Up with LEILA GARCIA When 05/26/2023 02:00 PM EST Where: [address] [facility] [address] [place] [address]- [phone] Follow Up with CECILIO FOX When 04/21/2023 02:15 PM EST Where: [address] [place] [address]- [phone] Follow Up with CECILIO FOX When In 2 weeks Where: [address] [facility] [place] [address]- [phone] Follow Up with [facility] to follow with home RN, Pt, OT and [employer] after dc. They will contact you for first visit. [facility] number is [phone]. When Within 1-2 days Follow Up with BATSHEVA FOX DO When Why: PLEASE CALL THIS OFFICE TO SCHEDULE A HOSPITAL FOLLOW UP APPOINTMENT. Where: [address] [place] [address]- [phone] The Following Activity and Diet Have Been Ordered for You Discharge Activity - Ordered -- As instructed by therapy, 04/18/23 16:49:00 EST Discharge Diet - Ordered -- Type of Diet: Cardiac, No changes were made to your diet during your hospital stay. Please resume your pre hospitalization diet on discharge., 04/18/23 16:49:00 EST The Following Equipment Has Been Ordered for You No qualifying data available. The Following Treatments Have Been Ordered for You Discharge Labs Discharge Outpatient Labwork - Ordered -- basic metabolic panel, BUN/Cr on diuretics, follow-up within: 3-5 days, Results Notify to: BATSHEVA FOX DO, 04/18/23 16:49:00 EST Discharge Radiology No qualifying data available. Other Therapies No qualifying data available. Post Acute Orders No qualifying data available. Someone Will Contact You Regarding These Home Health Referrals No home referrals have been ordered for you. No one will call you. Allergies Bystolic (Irregular heart beat) Cardizem (Dizziness) Tenormin (Bradycardia) Zebeta (Unknown) biaxin (GI upset) cipro glucaphage penicillin vancomycin Immunizations This Visit Given Vaccine Date Commentsinfluenza virus vaccine, inactivated 04/15/2023 unable to scan. verified dose/med/route with instructor Gaby Berrios RN and bedside nurse Justino RODRIGUEZ. Medications Please ask your primary doctor or pharmacist before taking any other medication not listed, including over the counter drugs, herbal medications, vitamins and or supplements as they may interact with your home medications. What How Much When Why Instructions Last Dose New amiodarone (amiodarone 200 mg oral tablet) 1 tab(s) by mouth Once a day start April 25 Duration: 120 Days Pickup at [facility] 1724 New amiodarone (amiodarone 200 mg oral tablet) 2 tab(s) by mouth Twice daily with meals Duration: 10 Days Pickup at [facility] 172 New apixaban (Eliquis 5 mg oral tablet) 1 tab(s) by mouth Two (2) times a day Duration: 180 Days Pickup at [facility] 172 New clopidogrel (Plavix 75 mg oral tablet) 1 tab(s) by mouth Once a day Duration: 180 Days Pickup at [facility] 172 New empagliflozin (Jardiance 10 mg oral tablet) 1 tab(s) by mouth Once a day (in the morning) Pickup at [facility] 172 Changed atorvastatin (Lipitor 40 mg oral tablet) 1 tab(s) by mouth Once a day Pickup at [place] [address] Changed furosemide (Lasix 40 mg oral tablet) 1 tab(s) by mouth Once a day Duration: 30 Days Pickup at [facility] 172 Changed metoprolol (metoprolol succinate 25 mg oral TABLET extended release) 1 tab(s) by mouth Two (2) times a day Pickup at [facility] 172 Unchanged acetaminophen-hydrocodone (acetaminophen-hydrocodone 325 mg-7.5 mg oral tablet) 1 tab(s) by mouth Every 4 hours as needed for for pain Unchanged cholecalciferol (Vitamin D3 125 mcg (5000 intl units) oral capsule) 1 cap by mouth Once a day Unchanged insulin aspart (Novolog) (NovoLOG FlexPen 100 units/ mL injectable solution) 5 unit(s) Subcutaneous Three (3) times a day before meals Diabetes mellitus type 2, insulin dependent Duration: 90 Days Unchanged insulin glargine (insulin glargine-yfgn 100 units/ mL subcutaneous solution) 20 Subcutaneous Once a day q andrew Unchanged loratadine (loratadine 10 mg oral tablet) 1 tab(s) by mouth Two (2) times a day as needed for Itching Chronic urticaria Unchanged losartan (losartan 25 mg oral tablet) 1 tab(s) by mouth Once a day Unchanged mirtazapine (mirtazapine 30 mg oral tablet) 1 tab(s) by mouth Daily at bedtime Replaces previous Rx for mirtazapine 15 mg dose. Unchanged ondansetron (ondansetron 4 mg oral tablet) 1 tab(s) by mouth Every 8 hours as needed for Nausea/Vomiting Pharmacy Information [id number]: [address], [place] [id number] [phone] What How Much When Comments Stop Taking acetaminophen 650 Milligram by mouth Every 4 hours as needed for Pain, scale 1-6 Stop Taking miconazole topical (miconazole 2% topical powder) 1 application Topical Two (2) times a day Stop Taking sotalol (sotalol 80 mg oral tablet) 1 tab(s) by mouth Daily at bedtime Stop Taking warfarin (warfarin 5 mg oral tablet) 1 tab(s) by mouth Once a day Please take this list to your next doctor s visit. Bring all medications you take, including over the counter medications, herbals and other supplements with you to your doctor s visit. Patients and families are reminded to discard old lists and to update any records with all medication providers or retail pharmacies. Medication Leaflets furosemide (oral/injection) (fur [place] se mide) Furoscix, Lasix What is the most important information I should know about furosemide? You should not use this medicine if you are unable to urinate. Using more than your recommended dose will not make this medicine more effective. High doses of furosemide may cause irreversible hearing loss. Tell your doctor about all your other medicines. Some drugs should not be used with furosemide. What is furosemide? Furosemide is used to treat fluid retention (edema) in people with congestive heart failure, liver disease, or a kidney disorder such as nephrotic syndrome. Furosemide is also used to treat high blood pressure (hypertension). The Furiosi brand of furosemide is only used in adults. Furosemide may also be used for purposes not listed in this medication guide. What should I discuss with my healthcare provider before using furosemide? You should not use furosemide if you are allergic to it, if you are unable to urinate or have hepatic cirrhosis. You should not use Furiosi if you have ascites or have allergies to medical adhesives. Tell your doctor if you have ever had: an electrolyte imbalance (such as low levels of potassium or magnesium in your blood); enlarged prostate, bladder obstruction, or other urination problems; gout; lupus; diabetes; an allergy to sulfa drugs; kidney disease; or cirrhosis or other liver disease. Tell your doctor if you have an MRI (magnetic resonance imaging) or any type of scan using a radioactive dye that is injected into a vein. Contrast dyes and furosemide can harm your kidneys. It is not known if furosemide will harm an unborn baby. Tell your doctor if you are or plan to become . It may not be safe to breastfeed while using this medicine. Ask your doctor about any risk. Furosemide may slow breast milk production. How should I use furosemide? Follow all directions on your prescription label and read all medication guides or instruction sheets. Use the medicine exactly as directed. Furosemide oral is taken by mouth. Furosemide injection is given in a muscle, under the skin, or in a vein. A healthcare provider will give you this injection if you are unable to take the medicine by mouth. Furiosi infusion lasts about 5 hours. Furiosi should not get wet. Do not bathe, shower, swim or exercise while wearing the infusor. Also do not apply any products such as lotions or creams in the area where the infusor is placed. It is not recommended to travel by car or airplane while using Furiosi. Also do not use the infusor within 12 inches of mobile phones, tablets, computers, or wireless accessories such as remote control, or [employer] devices. Do not reuse a needle, syringe or cartridge. Place them in a puncture-proof 'sharps' container and dispose of it following state or local laws. Keep out of the reach of children and pets. You may receive your first dose in a hospital or clinic setting if you have severe liver disease. Do not use more than your recommended dose. High doses of furosemide may cause irreversible hearing loss. Measure liquid medicine with the supplied measuring device (not a kitchen spoon). Doses are based on weight in children and teenagers. Your child's dose may change if the child gains or loses weight. Furosemide will make you urinate more often and you may get dehydrated easily. Follow your doctor's instructions about using potassium supplements or getting enough salt and potassium in your diet. Your blood pressure will need to be checked often and you may need other medical tests. If you have high blood pressure, keep using this medicine even if you feel well. High blood pressure often has no symptoms. If you need surgery, tell the surgeon ahead of time that you are using furosemide. Store at room temperature away from moisture, heat, and light. Throw away any unused oral liquid after 90 days. What happens if I miss a dose? Furosemide is sometimes used only once, so you may not be on a dosing schedule. If you are using the medication regularly, use the medicine as soon as you can, but skip the missed dose if it is almost time for your next dose. Do not use two doses at one time. What happens if I overdose? Seek emergency medical attention or call the Poison Help line at . Overdose symptoms may include feeling very thirsty or hot, heavy sweating, hot and dry skin, extreme weakness, or fainting. What should I avoid while using furosemide? Avoid getting up too fast from a sitting or lying position, or you may feel dizzy. Avoid becoming dehydrated. Follow your doctor's instructions about the type and amount of liquids you should drink while you are using furosemide. Drinking alcohol with this medicine can cause side effects. Furosemide could make you sunburn more easily. Avoid sunlight or tanning beds. Wear protective clothing and use sunscreen (SPF 30 or higher) when you are outdoors. If you have high blood pressure, ask a doctor or pharmacist before taking any medicines that can raise your blood pressure, such as diet pills or tphqc-lkt-pqyy medicine. What are the possible side effects of furosemide? Get emergency medical help if you have signs of an allergic reaction (hives, difficult breathing, swelling in your face or throat) or a severe skin reaction (fever, sore throat, burning eyes, skin pain, red or purple skin rash with blistering and peeling). Call your doctor at once if you have: a light-headed feeling, like you might pass out; ringing in your ears, hearing loss; muscle spasms or contractions; pale skin, easy bruising, unusual bleeding; high blood sugar--increased thirst, increased urination, dry mouth, fruity breath odor; kidney problems--swelling, urinating less, feeling tired or short of breath signs of liver or pancreas problems--loss of appetite, upper stomach pain (that may spread to your back), nausea or vomiting, dark urine, jaundice (yellowing of the skin or eyes); or signs of an electrolyte imbalance--increased thirst or urination, constipation, muscle weakness, leg cramps, numbness or tingling, feeling jittery, fluttering in your chest. Common side effects may include: diarrhea, constipation, loss of appetite; numbness or tingling; headache, dizziness; or blurred vision. This is not a complete list of side effects and others may occur. Call your doctor for medical advice about side effects. You may report side effects to FDA at 1-152-XNJ-8884. What other drugs will affect furosemide? Sometimes it is not safe to use certain medicines at the same time. Some drugs can affect your blood levels of other drugs you use, which may increase side effects or make the medicines less effective If you also take sucralfate, take your furosemide dose 2 hours before or 2 hours after you take sucralfate. Tell your doctor about all your other medicines, especially: another diuretic, especially ethacrynic acid; methotrexate; chloral hydrate; lithium; phenytoin; an antibiotic; cancer medicine, such as cisplatin; heart or blood pressure medicine; or NSAIDs (nonsteroidal anti-inflammatory drugs)--aspirin, ibuprofen (Advil, Motrin), naproxen (Aleve), celecoxib, diclofenac, indomethacin, meloxicam, and others. This list is not complete. Other drugs may affect furosemide, including prescription and lxgh-ytc-jnupovf medicines, vitamins, and herbal products. Not all possible drug interactions are listed here. Where can I get more information? Your doctor or pharmacist can provide more information about furosemide. Remember, keep this and all other medicines out of the reach of children, never share your medicines with others, and use this medication only for the indication prescribed. Every effort has been made to ensure that the information provided by [employer]. ('[employer]') is accurate, up-to-date, and complete, but no guarantee is made to that effect. Drug information contained herein may be time sensitive. [employer] information has been compiled for use by healthcare practitioners and consumers in the [place] and therefore [employer] does not warrant that uses outside of the [place] are appropriate, unless specifically indicated otherwise. [employer]'s drug information does not endorse drugs, diagnose patients or recommend therapy. [facility]'s drug information is an informational resource designed to assist licensed healthcare practitioners in caring for their patients and/or to serve consumers viewing this service as a supplement to, and not a substitute for, the expertise, skill, knowledge and judgment of healthcare practitioners. The absence of a warning for a given drug or drug combination in no way should be construed to indicate that the drug or drug combination is safe, effective or appropriate for any given patient. [facility] does not assume any responsibility for any aspect of healthcare administered with the aid of information [facility] provides. The information contained herein is not intended to cover all possible uses, directions, precautions, warnings, drug interactions, allergic reactions, or adverse effects. If you have questions about the drugs you are taking, check with your doctor, nurse or pharmacist. Copyright [id number] [facility] [employer]. Version: 18.. Revision Date: 05/28/2022. furosemide (oral/injection) (fur [place] se mide) Furoscix, Lasix What is the most important information I should know about furosemide? You should not use this medicine if you are unable to urinate. Using more than your recommended dose will not make this medicine more effective. High doses of furosemide may cause irreversible hearing loss. Tell your doctor about all your other medicines. Some drugs should not be used with furosemide. What is furosemide? Furosemide is used to treat fluid retention (edema) in people with congestive heart failure, liver disease, or a kidney disorder such as nephrotic syndrome. Furosemide is also used to treat high blood pressure (hypertension). The Furiosi brand of furosemide is only used in adults. Furosemide may also be used for purposes not listed in this medication guide. What should I discuss with my healthcare provider before using furosemide? You should not use furosemide if you are allergic to it, if you are unable to urinate or have hepatic cirrhosis. You should not use Furiosi if you have ascites or have allergies to medical adhesives. Tell your doctor if you have ever had: an electrolyte imbalance (such as low levels of potassium or magnesium in your blood); enlarged prostate, bladder obstruction, or other urination problems; gout; lupus; diabetes; an allergy to sulfa drugs; kidney disease; or cirrhosis or other liver disease. Tell your doctor if you have an MRI (magnetic resonance imaging) or any type of scan using a radioactive dye that is injected into a vein. Contrast dyes and furosemide can harm your kidneys. It is not known if furosemide will harm an unborn baby. Tell your doctor if you are or plan to become . It may not be safe to breastfeed while using this medicine. Ask your doctor about any risk. Furosemide may slow breast milk production. How should I use furosemide? Follow all directions on your prescription label and read all medication guides or instruction sheets. Use the medicine exactly as directed. Furosemide oral is taken by mouth. Furosemide injection is given in a muscle, under the skin, or in a vein. A healthcare provider will give you this injection if you are unable to take the medicine by mouth. Furiosi infusion lasts about 5 hours. Furiosi should not get wet. Do not bathe, shower, swim or exercise while wearing the infusor. Also do not apply any products such as lotions or creams in the area where the infusor is placed. It is not recommended to travel by car or airplane while using Furiosi. Also do not use the infusor within 12 inches of mobile phones, tablets, computers, or wireless accessories such as [employer] control, or [employer] devices. Do not reuse a needle, syringe or cartridge. Place them in a puncture-proof 'sharps' container and dispose of it following state or local laws. Keep out of the reach of children and pets. You may receive your first dose in a hospital or clinic setting if you have severe liver disease. Do not use more than your recommended dose. High doses of furosemide may cause irreversible hearing loss. Measure liquid medicine with the supplied measuring device (not a kitchen spoon). Doses are based on weight in children and teenagers. Your child's dose may change if the child gains or loses weight. Furosemide will make you urinate more often and you may get dehydrated easily. Follow your doctor's instructions about using potassium supplements or getting enough salt and potassium in your diet. Your blood pressure will need to be checked often and you may need other medical tests. If you have high blood pressure, keep using this medicine even if you feel well. High blood pressure often has no symptoms. If you need surgery, tell the surgeon ahead of time that you are using furosemide. Store at room temperature away from moisture, heat, and light. Throw away any unused oral liquid after 90 days. What happens if I miss a dose? Furosemide is sometimes used only once, so you may not be on a dosing schedule. If you are using the medication regularly, use the medicine as soon as you can, but skip the missed dose if it is almost time for your next dose. Do not use two doses at one time. What happens if I overdose? Seek emergency medical attention or call the Poison Help line at . Overdose symptoms may include feeling very thirsty or hot, heavy sweating, hot and dry skin, extreme weakness, or fainting. What should I avoid while using furosemide? Avoid getting up too fast from a sitting or lying position, or you may feel dizzy. Avoid becoming dehydrated. Follow your doctor's instructions about the type and amount of liquids you should drink while you are using furosemide. Drinking alcohol with this medicine can cause side effects. Furosemide could make you sunburn more easily. Avoid sunlight or tanning beds. Wear protective clothing and use sunscreen (SPF 30 or higher) when you are outdoors. If you have high blood pressure, ask a doctor or pharmacist before taking any medicines that can raise your blood pressure, such as diet pills or jzzbv-obl-ohyt medicine. What are the possible side effects of furosemide? Get emergency medical help if you have signs of an allergic reaction (hives, difficult breathing, swelling in your face or throat) or a severe skin reaction (fever, sore throat, burning eyes, skin pain, red or purple skin rash with blistering and peeling). Call your doctor at once if you have: a light-headed feeling, like you might pass out; ringing in your ears, hearing loss; muscle spasms or contractions; pale skin, easy bruising, unusual bleeding; high blood sugar--increased thirst, increased urination, dry mouth, fruity breath odor; kidney problems--swelling, urinating less, feeling tired or short of breath signs of liver or pancreas problems--loss of appetite, upper stomach pain (that may spread to your back), nausea or vomiting, dark urine, jaundice (yellowing of the skin or eyes); or signs of an electrolyte imbalance--increased thirst or urination, constipation, muscle weakness, leg cramps, numbness or tingling, feeling jittery, fluttering in your chest. Common side effects may include: diarrhea, constipation, loss of appetite; numbness or tingling; headache, dizziness; or blurred vision. This is not a complete list of side effects and others may occur. Call your doctor for medical advice about side effects. You may report side effects to FDA at 3-208-WWA-7334. What other drugs will affect furosemide? Sometimes it is not safe to use certain medicines at the same time. Some drugs can affect your blood levels of other drugs you use, which may increase side effects or make the medicines less effective If you also take sucralfate, take your furosemide dose 2 hours before or 2 hours after you take sucralfate. Tell your doctor about all your other medicines, especially: another diuretic, especially ethacrynic acid; methotrexate; chloral hydrate; lithium; phenytoin; an antibiotic; cancer medicine, such as cisplatin; heart or blood pressure medicine; or NSAIDs (nonsteroidal anti-inflammatory drugs)--aspirin, ibuprofen (Advil, Motrin), naproxen (Aleve), celecoxib, diclofenac, indomethacin, meloxicam, and others. This list is not complete. Other drugs may affect furosemide, including prescription and blxn-nnh-uguqldm medicines, vitamins, and herbal products. Not all possible drug interactions are listed here. Where can I get more information? Your doctor or pharmacist can provide more information about furosemide. Remember, keep this and all other medicines out of the reach of children, never share your medicines with others, and use this medication only for the indication prescribed. Every effort has been made to ensure that the information provided by [employer]. ('[employer]') is accurate, up-to-date, and complete, but no guarantee is made to that effect. Drug information contained herein may be time sensitive. [employer] information has been compiled for use by healthcare practitioners and consumers in the [place] and therefore [employer] does not warrant that uses outside of the [place] are appropriate, unless specifically indicated otherwise. [employer] drug information does not endorse drugs, diagnose patients or recommend therapy. [employer] drug information is an informational resource designed to assist licensed healthcare practitioners in caring for their patients and/or to serve consumers viewing this service as a supplement to, and not a substitute for, the expertise, skill, knowledge and judgment of healthcare practitioners. The absence of a warning for a given drug or drug combination in no way should be construed to indicate that the drug or drug combination is safe, effective or appropriate for any given patient. [facility] does not assume any responsibility for any aspect of healthcare administered with the aid of information [facility] provides. The information contained herein is not intended to cover all possible uses, directions, precautions, warnings, drug interactions, allergic reactions, or adverse effects. If you have questions about the drugs you are taking, check with your doctor, nurse or pharmacist. Copyright [id number] [facility]. Version: 18.. Revision Date: 05/28/2022. apixaban (a PIX a ban) Debi What is the most important information I should know about apixaban? Apixaban increases your risk of severe or fatal bleeding, especially if you take certain medicines at the same time (including some sjfa-sxx-edgvarm medicines). Tell your doctor about all medicines you have recently used. Call your doctor at once if you have signs of bleeding such as: easy bruising, unusual bleeding, unexpected pain or swelling, feeling very weak or dizzy, bleeding gums, nosebleeds, heavy menstrual bleeding, blood in your urine or stools, coughing up blood or vomit that looks like coffee grounds, or any bleeding that will not stop. Apixaban can cause a very serious blood clot around your spinal cord that can lead to long-term or permanent paralysis. This type of blood clot can occur during a spinal tap or spinal anesthesia (epidural), especially if you have a genetic spinal defect, if you use a spinal catheter, if you've had spinal surgery or repeated spinal taps, or if you use other drugs that can affect blood clotting. Get emergency medical help if you have symptoms of a spinal cord blood clot such as tingling, numbness, or muscle weakness especially in your legs and feet. Do not stop taking apixaban unless your doctor tells you to. Stopping suddenly can increase your risk of blood clot or stroke. What is apixaban? Apixaban is used to lower the risk of stroke caused by a blood clot in people with a heart rhythm disorder called atrial fibrillation. Apixaban is also used after hip or knee replacement surgery to prevent a type of blood clot called deep vein thrombosis (DVT), which can lead to blood clots in the lungs (pulmonary embolism). Apixaban is also used to treat DVT or pulmonary embolism (PE), and to lower your risk of having a repeat DVT or PE. Apixaban may also be used for purposes not listed in this medication guide. What should I discuss with my healthcare provider before taking apixaban? You should not take apixaban if you are allergic to it, or if you have active bleeding from a surgery, injury, or other cause. Apixaban may cause you to bleed more easily, especially if you have a bleeding disorder that is inherited or caused by disease. Tell your doctor if you have an artificial heart valve, or if you have ever had: bleeding problems; antiphospholipid syndrome, especially if you have a triple positive antibody test; or liver or kidney disease. Apixaban can cause a very serious blood clot around your spinal cord if you undergo a spinal tap or receive spinal anesthesia (epidural). This type of blood clot could cause long-term paralysis, and may be more likely to occur if: you have a spinal catheter in place or if a catheter has been recently removed; you have a history of spinal surgery or repeated spinal taps; you have recently had a spinal tap or epidural anesthesia; you take aspirin or other NSAIDs (nonsteroidal anti-inflammatory drugs)--ibuprofen (Advil, Motrin), naproxen (Aleve), diclofenac, indomethacin, meloxicam, and others; or you are using other medicines to treat or prevent blood clots. Taking apixaban may increase the risk of bleeding while you are or during your delivery. Tell your doctor if you are or plan to become . Do not breastfeed. How should I take apixaban? Follow all directions on your prescription label and read all medication guides or instruction sheets. Your doctor may occasionally change your dose. Use the medicine exactly as directed. You may take apixaban with or without food. If you cannot swallow a tablet whole, crush it and mix with water, apple juice, or applesauce. Swallow the mixture right away without chewing. A crushed tablet mixture may also be given through a nasogastric (NG) feeding tube. Read and carefully follow any Instructions for Use provided with your medicine. Apixaban can make it easier for you to bleed, even from a minor injury. Seek medical attention if you have bleeding that will not stop. Tell your doctor if you have a planned surgery or dental work. You may need to stop taking apixaban for a short time. Do not stop taking apixaban unless your doctor tells you to. If you stop taking apixaban for any reason, your doctor may prescribe another medicine to prevent blood clots. Store at room temperature away from moisture and heat. What happens if I miss a dose? Take the missed dose on the same day you remember it. Take your next dose at the regular time and stay on your twice-daily schedule. Do not take two doses at one time. Get your prescription refilled before you run out of medicine completely. What happens if I overdose? Seek emergency medical attention or call the Poison Help line at . What should I avoid while taking apixaban? Avoid activities that may increase your risk of bleeding or injury. Use extra care while shaving or brushing your teeth. What are the possible side effects of apixaban? Get emergency medical help if you have signs of an allergic reaction: hives; chest pain, wheezing, difficult breathing; feeling light-headed; swelling of your face, lips, tongue, or throat. Also seek emergency medical attention if you have symptoms of a spinal blood clot such as tingling, numbness, or muscle weakness especially in your legs and feet. Call your doctor at once if you have: easy bruising, unusual bleeding (nose, mouth, vagina, or rectum), bleeding from wounds or needle injections, any bleeding that will not stop; heavy menstrual bleeding; headache, dizziness, weakness, feeling like you might pass out; urine that looks red, pink, or brown; or black or bloody stools, coughing up blood or vomit that looks like coffee grounds. This is not a complete list of side effects and others may occur. Call your doctor for medical advice about side effects. You may report side effects to FDA at 7-837-PSZ-0403. What other drugs will affect apixaban? Sometimes it is not safe to use certain medications at the same time. Some drugs can affect your blood levels of other drugs you take, which may increase side effects or make the medications less effective. Many other drugs (including some xzpc-dor-bqpxdza medicines) can increase your risk of bleeding or blood clots. Tell your doctor about all medicines you have recently used, especially: any other medicines to treat or prevent blood clots; a blood thinner such as heparin or warfarin (Coumadin, Jantoven); an antidepressant; or aspirin or other NSAID (nonsteroidal anti-inflammatory drug) used technician terminal and repeater. This list is not complete and many other drugs may affect apixaban. This includes prescription and rsan-yao-isgtaqy medicines, vitamins, and herbal products. Not all possible drug interactions are listed here. Where can I get more information? Your pharmacist can provide more information about apixaban. Remember, keep this and all other medicines out of the reach of children, never share your medicines with others, and use this medication only for the indication prescribed. Every effort has been made to ensure that the information provided by [employer]. ('[employer]') is accurate, up-to-date, and complete, but no guarantee is made to that effect. Drug information contained herein may be time sensitive. [employer] information has been compiled for use by healthcare practitioners and consumers in the [place] and therefore [employer] does not warrant that uses outside of the [place] are appropriate, unless specifically indicated otherwise. [employer]'s drug information does not endorse drugs, diagnose patients or recommend therapy. [employer] drug information is an informational resource designed to assist licensed healthcare practitioners in caring for their patients and/or to serve consumers viewing this service as a supplement to, and not a substitute for, the expertise, skill, knowledge and judgment of healthcare practitioners. The absence of a warning for a given drug or drug combination in no way should be construed to indicate that the drug or drug combination is safe, effective or appropriate for any given patient. [employer] does not assume any responsibility for any aspect of healthcare administered with the aid of information [employer] provides. The information contained herein is not intended to cover all possible uses, directions, precautions, warnings, drug interactions, allergic reactions, or adverse effects. If you have questions about the drugs you are taking, check with your doctor, nurse or pharmacist. Copyright 5145-6245 [employer]. Version: 6.01. Revision Date: 11/11/2020. Education Materials Atrial Fibrillation Atrial fibrillation is a type of heartbeat that is irregular or fast (rapid). If you have this condition, your heart beats without any order. This makes it hard for your heart to pump blood in a normal way. Having this condition gives you more risk for stroke, heart failure, and other heart problems. Atrial fibrillation may start all of a sudden and then stop on its own, or it may become a long-lasting problem. What are the causes? This condition may be caused by heart conditions, such as: High blood pressure. Heart failure. Heart valve disease. Heart surgery. Other causes include: Pneumonia. Obstructive sleep apnea. Lung cancer. Thyroid disease. Drinking too much alcohol. Sometimes the cause is not known. What increases the risk? You are more likely to develop this condition if: You smoke. You are older. You have diabetes. You are overweight. You have a family history of this condition. You exercise often and hard. What are the signs or symptoms? Common symptoms of this condition include: A feeling like your heart is beating very fast. Chest pain. Feeling short of breath. Feeling light-headed or weak. Getting tired easily. Follow these instructions at home: Medicines Take fesl-rov-nfjmamj and prescription medicines only as told by your doctor. If your doctor gives you a blood-thinning medicine, take it exactly as told. Taking too much of it can cause bleeding. Taking too little of it does not protect you against clots. Clots can cause a stroke. Lifestyle Do not use any tobacco products. These include cigarettes, chewing tobacco, and e-cigarettes. If you need help quitting, ask your doctor. Do not drink alcohol. Do not drink beverages that have caffeine. These include coffee, soda, and tea. Follow diet instructions as told by your doctor. Exercise regularly as told by your doctor. General instructions If you have a condition that causes breathing to stop for a short period of time (apnea), treat it as told by your doctor. Keep a healthy weight. Do not use diet pills unless your doctor says they are safe for you. Diet pills may make heart problems worse. Keep all follow-up visits as told by your doctor. This is important. Contact a doctor if: You notice a change in the speed, rhythm, or strength of your heartbeat. You are taking a blood-thinning medicine and you see more bruising. You get tired more easily when you move or exercise. You have a sudden change in weight. Get help right away if: You have pain in your chest or your belly (abdomen). You have trouble breathing. You have blood in your vomit, poop, or pee (urine). You have any signs of a stroke. BE FAST is an easy way to remember the main warning signs: ? B - Balance. Signs are dizziness, sudden trouble walking, or loss of balance. ? E - Eyes. Signs are trouble seeing or a change in how you see. ? F - Face. Signs are sudden weakness or loss of feeling in the face, or the face or eyelid drooping on one side. ? A - Arms. Signs are weakness or loss of feeling in an arm. This happens suddenly and usually on one side of the body. ? S - Speech. Signs are sudden trouble speaking, slurred speech, or trouble understanding what people say. ? T - Time. Time to call emergency services. Write down what time symptoms started. You have other signs of a stroke, such as: ? A sudden, very bad headache with no known cause. ? Feeling sick to your stomach (nausea). ? Throwing up (vomiting). ? Jerky movements you cannot control (seizure). These symptoms may be an emergency. Do not wait to see if the symptoms will go away. Get medical help right away. Call your local emergency services (911 in the [place] Do not drive yourself to the hospital. Summary Atrial fibrillation is a type of heartbeat that is irregular or fast (rapid). You are at higher risk of this condition if you smoke, are older, have diabetes, or are overweight. Follow your doctor's instructions about medicines, diet, exercise, and follow-up visits. Get help right away if you think that you have signs of a stroke. This information is not intended to replace advice given to you by your health care provider. Make sure you discuss any questions you have with your health care provider. Document Released: 12/14/2008 Document Revised: 05/11/2018 Document Reviewed: 04/28/2018 [employer] Patient Education 2020 [employer] Atrial Fibrillation Atrial fibrillation is a type of heartbeat that is irregular or fast (rapid). If you have this condition, your heart beats without any order. This makes it hard for your heart to pump blood in a normal way. Having this condition gives you more risk for stroke, heart failure, and other heart problems. Atrial fibrillation may start all of a sudden and then stop on its own, or it may become a long-lasting problem. What are the causes? This condition may be caused by heart conditions, such as: High blood pressure. Heart failure. Heart valve disease. Heart surgery. Other causes include: Pneumonia. Obstructive sleep apnea. Lung cancer. Thyroid disease. Drinking too much alcohol. Sometimes the cause is not known. What increases the risk? You are more likely to develop this condition if: You smoke. (more content not included)... [facility] 04-18-2023 Discharge summary Date of Service 04/18/2023 Discharge Diagnosis Persistent atrial fibrillation on warfarin at home, frequently subtherapeutic, switched to Eliquis this admission after discussion with family Sick sinus syndrome status post Medtronic dual-chamber pacemaker placement Acute exacerbation of CHF (new systolic drop 30-35%) Heart failure with newly reduced EF (EF 30-35%, reduced from 55-60% in September 2022) CAD s/p RCA stent (04/15/2023), planned for outpatient staged PCI to LAD Type II OR Hypertension Hyperlipidemia Type 2 diabetes mellitus (A1c 9.29 Mar 2023) Hospital Course Patient is a 72-year-old female with medical history significant for longstanding persistent atrial fibrillation on warfarin, sinus bradycardia status post dual-chamber pacemaker February 2021 Medtronic, history of CHF with new drop in ejection fraction from September 2022 currently 30 to 35% EF, hypertension, hyperlipidemia, diabetes, who presented as a transfer from [facility] due to shortness of breath, abdominal pain, lower extremity pain and weight gain which have been progressively getting worse over the last few months. Patient admitted for atrial fibrillation w/RVR and NSTEMI with troponin trend 2371 then 3734 then 4390. Patient was cardioverted back to sinus rhythm on 04/14/2023 completed amiodarone IV protocol transition to amiodarone 400 mg p.o. twice daily starting from 04/15/2023 (will continue 10 days on amiodarone 400mg BID then switch over to amiodarone 200mg qdaily from Apr 25 onwards) Found to have a drop in EF, Patient was also diuresed with IV Lasix 60 mg twice daily initially, now not on any oral diuretics, takes Lasix 40 mg daily at home, placed back on 40mg qdaily on discharge home. For NSTEMI, patient underwent left heart cath 04/15/2023, status post PCI to RCA. Patient was also noted to have LAD and left circumflex disease, will be brought back as an outpatient for PCI for these lesions. Continue aspirin, plavix, atorvastatin, losartan 25 mg qdaily, metoprolol succinate 25mg BID In regards to A-fib with RVR that is now in sinus rhythm after cardioversion this admission, patient deemed to be a good candidate for hybrid maze in the future. She is subtherapeutic with her INR frequently, hence consideration of JOSE clip will be made in order to better maintain her in sinus rhythm long-term. 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 Given the patient does have subtherapeutic INR, and has memory difficulty, we would ideally like to switch her over to Eliquis after discussing with family member. Spoke to daughter John Paul this morning, she does endorse that patient does not remember to take her medications, agreed that Eliquis would be the best option for her. We will switch her over to Eliquis during this hospital stay. Allergies Bystolic (Irregular heart beat) Cardizem (Dizziness) Tenormin (Bradycardia) Zebeta (Unknown) biaxin (GI upset) cipro glucaphage penicillin vancomycin Consults Consult to Physician - Ordered -- 04/10/23 21:19:00 BOUBACAR KING RYAN MD, Routine, Atrial fibrillation/atrial flutter management and patient with new onset CHF on sotalol Consult to Physician - Ordered -- 04/10/23 21:34:00 ROSLYN KING BADIE BA MD, Routine, Antibiotic management. Bilateral cellulitis? Imaging Results and Diagnostics [facility] 04/14/2023 Summary: 1. Left ventricle: Systolic function is moderately to severely reduced by visual assessment. The estimated ejection fraction is 30-35%. 2. Aortic valve: There is no stenosis. 3. Left atrium: There is no evidence of a thrombus in the atrial cavity or appendage. 4. Right atrium: Prominent RV trabeculations. 5. Tricuspid valve: There is moderate regurgitation. 6. Atrial septum: No defect or patent foramen ovale is identified. Color Doppler and agitated saline following an increase in RA pressure induced by provocative maneuvers, shows no [id number] atrial level shunt. Recommendations: Proceed with synchronized cardioversion. ECHO 04/12/2023 Summary: 1. Left ventricle: The cavity size is normal. Wall thickness is normal. Asymmetric Septal Left Ventricular Hypertrophy Systolic function is moderately to severely reduced. The estimated ejection fraction is 30 +/- 5%. Regional wall motion abnormalities cannot be excluded. Diastolic dysfunction present but unable to assess severity. The LVOT systolic velocity-time integral is 11.2 cm. 2. Ventricular septum: Thickness is moderately increased. Septal motion is paradoxical. 3. Aortic valve: Not well visualized. Cusp separation is normal. The mean systolic gradient is 13 mm Hg. The LVOT to aortic valve VTI ratio is 0.19. The valve area by VTI is 0.5 cm . calculated PRIETO is out of proportion to visual AV opening, suggest better visualization of AV. 4. Mitral valve: Leaflet separation is mildly reduced. The pressure half-time is 58 ms. 5. Right ventricle: The cavity size is increased. Wall thickness is normal. Systolic function is mildly to moderately reduced by visual assessment. Systolic pressure is mildly increased. The RV systolic pressure by Doppler is 42 mm Hg. Moderate size ECHO density was noted in RV apex , best seen image 27 and 30, moves with the apex; less likely thrombus or moderator band, more look like large trabeculation of apex; still if clinically indicated suggest better visualization 6. Tricuspid valve: There is moderate regurgitation. 7. Right atrium: The estimated right atrial pressure is 15 mm Hg. 8. Pericardium, extracardiac: A small pericardial effusion is identified. Features are not consistent with tamponade physiology. Recommendations: Suggest [facility]UEL if clinically indicated or repeat limited echo Physical Exam Vitals and Measurements T: 36.6 C (Oral) TMIN: 36.5 C (Oral) TMAX: 36.9 C (Oral) HR: 73(Apical) RR: 20 BP: 140/80 SpO2: 96% Weight Dosing Weight: 100.4 kg (04/10/23) constitutional: Not in acute distress Neck - Thyroid not enlarged. Eyes: general /bilateral - extraocular Movement s normal - Pupils: PERRLA Ears: No discharge, external auditory meatus normal Cardiovascular: JVD not elevated, S1 S2 present, basilar crackles Abdomen: Auscultation palpation revealed no abnormalities - Abdomen is soft, no abdominal tenderness. Liver: not enlarged Musculoskeletal system: general/bilateral Normal movement of all extremities Neurological: ANO x 2-3, alert Skin: color and pigmentation is normal Code Status Code Status - Ordered -- 04/10/23 20:59:00 EST, Full Code, Constant Order Admission Date 04/10/2023 Discharge Date 04/18/2023 Patient Instructions - Please follow up with your Primary Care Physician (PCP) as soon as possible. - Please follow-up with all specialists as documented below. - Please keep all follow-up appointments. - Please take all medications as prescribed. - Please return for medical care if your condition worsens or changes. Medications New Prescription amiodarone (amiodarone 200 mg oral tablet)1 tab(s) by mouth once a day for 120 Days. Refills: 0. amiodarone (amiodarone 200 mg oral tablet)2 tab(s) by mouth twice daily with meals for 10 Days. Refills: 0. apixaban (Eliquis 5 mg oral tablet)1 tab(s) by mouth two (2) times a day for 180 Days. Refills: 0. clopidogrel (Plavix 75 mg oral tablet)1 tab(s) by mouth once a day for 180 Days. Refills: 0. empagliflozin (Jardiance 10 mg oral tablet)1 tab(s) by mouth once a day (in the morning). Refills: 0. Changed atorvastatin (Lipitor 40 mg oral tablet)1 tab(s) by mouth once a day. Refills: 0. furosemide (Lasix 40 mg oral tablet)1 tab(s) by mouth once a day for 30 Days. Refills: 0. metoprolol (metoprolol succinate 25 mg oral TABLET extended release)1 tab(s) by mouth two (2) times a day. Refills: 0. Unchanged acetaminophen-hydrocodone (acetaminophen-hydrocodone 325 mg-7.5 mg oral tablet)1 tab(s) by mouth every 4 hours as needed for pain. cholecalciferol (Vitamin D3 125 mcg (5000 intl units) oral capsule)1 cap by mouth once a day. Refills: 0. insulin aspart (Novolog) (NovoLOG FlexPen 100 units/mL injectable solution)5 unit(s) Subcutaneous three (3) times a day before meals for 90 Days. Refills: 3. insulin glargine (insulin glargine-yfgn 100 units/mL subcutaneous solution)20 Subcutaneous once a day. q andrew. loratadine (loratadine 10 mg oral tablet)1 tab(s) by mouth two (2) times a day as needed Itching. Refills: 3. losartan (losartan 25 mg oral tablet)1 tab(s) by mouth once a day. Refills: 3. mirtazapine (mirtazapine 30 mg oral tablet)1 tab(s) by mouth daily at bedtime. Replaces previous Rx for mirtazapine 15 mg dose.. Refills: 2. ondansetron (ondansetron 4 mg oral tablet)1 tab(s) by mouth every 8 hours as needed Nausea/Vomiting. Discontinued [id number] Milligram by mouth every 4 hours as needed Pain, scale 1-6. miconazole topical (miconazole 2% topical powder)1 application Topical two (2) times a day. sotalol (sotalol 80 mg oral tablet)1 tab(s) by mouth daily at bedtime. Refills: 3. warfarin (warfarin 5 mg oral tablet)1 tab(s) by mouth once a day. Refills: 1. Follow Up Follow Up with LEILA GARCIA When 05/26/2023 02:00 PM EST Where: [address] [facility] [address] [place] [address]- [phone] Follow Up with CECILIO FOX When 04/21/2023 02:15 PM EST Where: [address] [place] [address]- [phone] Follow Up with CECILIO FOX When In 2 weeks Where: [address] [facility] [address] [place] [address]- [phone] Follow Up with [facility] to follow with home RN, Pt, OT and [employer] after dc. They will contact you for first visit. [facility] number is [phone]. When Within 1-2 days Follow Up with BATSHEVA FOX DO When Why: PLEASE CALL THIS OFFICE TO SCHEDULE A HOSPITAL FOLLOW UP APPOINTMENT. Where: [address] [place] [address]- [phone] Follow Up Appointments No qualifying data available. Follow Up Labs/Studies Discharge Labs Discharge Outpatient Labwork - Ordered -- basic metabolic panel, BUN/Cr on diuretics, follow-up within: 3-5 days, Results Notify to: BATSHEVA FOX DO, 04/18/23 16:49:00 EST Discharge Studies No Follow-up Studies Discharge Diet Discharge Diet - Ordered -- Type of Diet: Cardiac, No changes were made to your diet during your hospital stay. Please resume your pre hospitalization diet on discharge., 04/18/23 16:49:00 EST Discharge Activity Discharge Activity - Ordered -- As instructed by therapy, 04/18/23 16:49:00 EST Digitally Signed by EJ MORENO MD on 04/18/2023 04:56 PM [facility] 04-18-2023 Discharge summary Date of Service 04/18/2023 Discharge Diagnosis Persistent atrial fibrillation on warfarin at home, frequently subtherapeutic, switched to Eliquis this admission after discussion with family Sick sinus syndrome status post Medtronic dual-chamber pacemaker placement Acute exacerbation of CHF (new systolic drop 30-35%) Heart failure with newly reduced EF (EF 30-35%, reduced from 55-60% in September 2022) CAD s/p RCA stent (04/15/2023), planned for outpatient staged PCI to LAD Type II OR Hypertension Hyperlipidemia Type 2 diabetes mellitus (A1c 9.29 Mar 2023) Hospital Course Patient is a 72-year-old female with medical history significant for longstanding persistent atrial fibrillation on warfarin, sinus bradycardia status post dual-chamber pacemaker February 2021 Medtronic, history of CHF with new drop in ejection fraction from September 2022 currently 30 to 35% EF, hypertension, hyperlipidemia, diabetes, who presented as a transfer from [facility] due to shortness of breath, abdominal pain, lower extremity pain and weight gain which have been progressively getting worse over the last few months. Patient admitted for atrial fibrillation w/RVR and NSTEMI with troponin trend 2371 then 3734 then 4390. Patient was cardioverted back to sinus rhythm on 04/14/2023 completed amiodarone IV protocol transition to amiodarone 400 mg p.o. twice daily starting from 04/15/2023 (will continue 10 days on amiodarone 400mg BID then switch over to amiodarone 200mg qdaily from Feb 5 onwards) Found to have a drop in EF, Patient was also diuresed with IV Lasix 60 mg twice daily initially, now not on any oral diuretics, takes Lasix 40 mg daily at home, placed back on 40mg qdaily on discharge home. For NSTEMI, patient underwent left heart cath 04/15/2023, status post PCI to RCA. Patient was also noted to have LAD and left circumflex disease, will be brought back as an outpatient for PCI for these lesions. Continue aspirin, plavix, atorvastatin, losartan 25 mg qdaily, metoprolol succinate 25mg BID In regards to A-fib with RVR that is now in sinus rhythm after cardioversion this admission, patient deemed to be a good candidate for hybrid maze in the future. She is subtherapeutic with her INR frequently, hence consideration of JOSE clip will be made in order to better maintain her in sinus rhythm long-term. 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 Given the patient does have subtherapeutic INR, and has memory difficulty, we would ideally like to switch her over to Eliquis after discussing with family member. Spoke to daughter John Paul this morning, she does endorse that patient does not remember to take her medications, agreed that Eliquis would be the best option for her. We will switch her over to Eliquis during this hospital stay. Allergies Bystolic (Irregular heart beat) Cardizem (Dizziness) Tenormin (Bradycardia) Zebeta (Unknown) biaxin (GI upset) cipro glucaphage penicillin vancomycin Consults Consult to Physician - Ordered -- 04/10/23 21:19:00 BOUBACAR KING RYAN MD, Routine, Atrial fibrillation/atrial flutter management and patient with new onset CHF on sotalol Consult to Physician - Ordered -- 04/10/23 21:34:00 ROSLYN KING BADIE BA MD, Routine, Antibiotic management. Bilateral cellulitis? Imaging Results and Diagnostics VICTOR MANUEL 04/14/2023 Summary: 1. Left ventricle: Systolic function is moderately to severely reduced by visual assessment. The estimated ejection fraction is 30-35%. 2. Aortic valve: There is no stenosis. 3. Left atrium: There is no evidence of a thrombus in the atrial cavity or appendage. 4. Right atrium: Prominent RV trabeculations. 5. Tricuspid valve: There is moderate regurgitation. 6. Atrial septum: No defect or patent foramen ovale is identified. Color Doppler and agitated saline following an increase in RA pressure induced by provocative maneuvers, shows no fbdnj-ya-mnni atrial level shunt. Recommendations: Proceed with synchronized cardioversion. ECHO 04/12/2023 Summary: 1. Left ventricle: The cavity size is normal. Wall thickness is normal. Asymmetric Septal Left Ventricular Hypertrophy Systolic function is moderately to severely reduced. The estimated ejection fraction is 30 +/- 5%. Regional wall motion abnormalities cannot be excluded. Diastolic dysfunction present but unable to assess severity. The LVOT systolic velocity-time integral is 11.2 cm. 2. Ventricular septum: Thickness is moderately increased. Septal motion is paradoxical. 3. Aortic valve: Not well visualized. Cusp separation is normal. The mean systolic gradient is 13 mm Hg. The LVOT to aortic valve VTI ratio is 0.19. The valve area by VTI is 0.5 cm . calculated PRIETO is out of proportion to visual AV opening, suggest better visualization of AV. 4. Mitral valve: Leaflet separation is mildly reduced. The pressure half-time is 58 ms. 5. Right ventricle: The cavity size is increased. Wall thickness is normal. Systolic function is mildly to moderately reduced by visual assessment. Systolic pressure is mildly increased. The RV systolic pressure by Doppler is 42 mm Hg. Moderate size ECHO density was noted in RV apex , best seen image 27 and 30, moves with the apex; less likely thrombus or moderator band, more look like large trabeculation of apex; still if clinically indicated suggest better visualization 6. Tricuspid valve: There is moderate regurgitation. 7. Right atrium: The estimated right atrial pressure is 15 mm Hg. 8. Pericardium, extracardiac: A small pericardial effusion is identified. Features are not consistent with tamponade physiology. Recommendations: Suggest VICTOR MANUEL if clinically indicated or repeat limited echo Physical Exam Vitals and Measurements T: 36.6 C (Oral) TMIN: 36.5 C (Oral) TMAX: 36.9 C (Oral) HR: 73(Apical) RR: 20 BP: 140/80 SpO2: 96% Weight Dosing Weight: 100.4 kg (04/10/23) constitutional: Not in acute distress Neck - Thyroid not enlarged. Eyes: general /bilateral - extraocular Movement s normal - Pupils: PERRLA Ears: No discharge, external auditory meatus normal Cardiovascular: JVD not elevated, S1 S2 present, basilar crackles Abdomen: Auscultation palpation revealed no abnormalities - Abdomen is soft, no abdominal tenderness. Liver: not enlarged Musculoskeletal system: general/bilateral Normal movement of all extremities Neurological: ANO x 2-3, alert Skin: color and pigmentation is normal Code Status Code Status - Ordered -- 04/10/23 20:59:00 EST, Full Code, Constant Order Admission Date 04/10/2023 Discharge Date 04/18/2023 Patient Instructions - Please follow up with your Primary Care Physician (PCP) as soon as possible. - Please follow-up with all specialists as documented below. - Please keep all follow-up appointments. - Please take all medications as prescribed. - Please return for medical care if your condition worsens or changes. Medications New Prescription amiodarone (amiodarone 200 mg oral tablet)1 tab(s) by mouth once a day for 120 Days. Refills: 0. amiodarone (amiodarone 200 mg oral tablet)2 tab(s) by mouth twice daily with meals for 10 Days. Refills: 0. apixaban (Eliquis 5 mg oral tablet)1 tab(s) by mouth two (2) times a day for 180 Days. Refills: 0. clopidogrel (Plavix 75 mg oral tablet)1 tab(s) by mouth once a day for 180 Days. Refills: 0. empagliflozin (Jardiance 10 mg oral tablet)1 tab(s) by mouth once a day (in the morning). Refills: 0. Changed atorvastatin (Lipitor 40 mg oral tablet)1 tab(s) by mouth once a day. Refills: 0. furosemide (Lasix 40 mg oral tablet)1 tab(s) by mouth once a day for 30 Days. Refills: 0. metoprolol (metoprolol succinate 25 mg oral TABLET extended release)1 tab(s) by mouth two (2) times a day. Refills: 0. Unchanged acetaminophen-hydrocodone (acetaminophen-hydrocodone 325 mg-7.5 mg oral tablet)1 tab(s) by mouth every 4 hours as needed for pain. cholecalciferol (Vitamin D3 125 mcg (5000 intl units) oral capsule)1 cap by mouth once a day. Refills: 0. insulin aspart (Novolog) (NovoLOG FlexPen 100 units/mL injectable solution)5 unit(s) Subcutaneous three (3) times a day before meals for 90 Days. Refills: 3. insulin glargine (insulin glargine-yfgn 100 units/mL subcutaneous solution)20 Subcutaneous once a day. q andrew. loratadine (loratadine 10 mg oral tablet)1 tab(s) by mouth two (2) times a day as needed Itching. Refills: 3. losartan (losartan 25 mg oral tablet)1 tab(s) by mouth once a day. Refills: 3. mirtazapine (mirtazapine 30 mg oral tablet)1 tab(s) by mouth daily at bedtime. Replaces previous Rx for mirtazapine 15 mg dose.. Refills: 2. ondansetron (ondansetron 4 mg oral tablet)1 tab(s) by mouth every 8 hours as needed Nausea/Vomiting. Discontinued [id number] Milligram by mouth every 4 hours as needed Pain, scale 1-6. miconazole topical (miconazole 2% topical powder)1 application Topical two (2) times a day. sotalol (sotalol 80 mg oral tablet)1 tab(s) by mouth daily at bedtime. Refills: 3. warfarin (warfarin 5 mg oral tablet)1 tab(s) by mouth once a day. Refills: 1. Follow Up Follow Up with LEILA GARCIA When 05/26/2023 02:00 PM EST Where: [address] [facility] [address] [place] [address]- [phone] Follow Up with CECILIO FOX When 04/21/2023 02:15 PM EST Where: [address] [place] [address]- [phone] Follow Up with CECILIO FOX When In 2 weeks Where: [address] [facility] [address] [place] [address]- [phone] Follow Up with [facility] to follow with home RN, Pt, OT and [employer] after dc. They will contact you for first visit. [facility] number is [phone]. When Within 1-2 days Follow Up with BATSHEVA FOX DO When Why: PLEASE CALL THIS OFFICE TO SCHEDULE A HOSPITAL FOLLOW UP APPOINTMENT. Where: [address] [place] [address]- [phone] Follow Up Appointments No qualifying data available. Follow Up Labs/Studies Discharge Labs Discharge Outpatient Labwork - Ordered -- basic metabolic panel, BUN/Cr on diuretics, follow-up within: 3-5 days, Results Notify to: BATSHEVA FOX DO, 04/18/23 16:49:00 EST Discharge Studies No Follow-up Studies Discharge Diet Discharge Diet - Ordered -- Type of Diet: Cardiac, No changes were made to your diet during your hospital stay. Please resume your pre hospitalization diet on discharge., 04/18/23 16:49:00 EST Discharge Activity Discharge Activity - Ordered -- As instructed by therapy, 04/18/23 16:49:00 EST Digitally Signed by EJ MORENO MD on 04/18/2023 04:56 PM [facility] 04-18-2023 Note ORIGINAL EXAMINATION: ONE XRAY VIEW OF THE CHEST 04/18/2023 5:02 am COMPARISON: None. HISTORY: ORDERING SYSTEM PROVIDED HISTORY: Reason for Exam: chf FINDINGS: Left-sided cardiac pacer device is noted. Mild cardiomegaly. Atherosclerotic calcification of the aorta is noted. Mild central vascular prominence is noted. Hazy airspace disease at the lung bases. No definite large effusion. IMPRESSION: Findings suggestive of mild congestion/edema. Interpreted by: Hermelindo Cuadra MD Preliminary Report By: Hermelindo Cuadra MD Electronically signed By Hermelindo Cuadra MD Dictated Date: 04/18/2023 8:04:38 AM Prelim Date: 04/18/2023 8:11:47 AM Sign Date: 04/18/2023 8:11:47 AM Ordering Provider: EJ MORENO [facility] 04-17-2023 Cardiology Progress note Date of Service 04/17/2023 Subjective No acute complaints, eating breakfast this morning PPM 03/17/2021 Procedures performed: Lead implantation (right ventricle). Dual-chamber permanent pacemaker implantation. VICTOR MANUEL 04/14/2023 Summary: 1. Left ventricle: Systolic function is moderately to severely reduced by visual assessment. The estimated ejection fraction is 30-35%. 2. Aortic valve: There is no stenosis. 3. Left atrium: There is no evidence of a thrombus in the atrial cavity or appendage. 4. Right atrium: Prominent RV trabeculations. 5. Tricuspid valve: There is moderate regurgitation. 6. Atrial septum: No defect or patent foramen ovale is identified. Color Doppler and agitated saline following an increase in RA pressure induced by provocative maneuvers, shows no [id number] atrial level shunt. Recommendations: Proceed with synchronized cardioversion. ECHO 04/12/2023 Summary: 1. Left ventricle: The cavity size is normal. Wall thickness is normal. Asymmetric Septal Left Ventricular Hypertrophy Systolic function is moderately to severely reduced. The estimated ejection fraction is 30 +/- 5%. Regional wall motion abnormalities cannot be excluded. Diastolic dysfunction present but unable to assess severity. The LVOT systolic velocity-time integral is 11.2 cm. 2. Ventricular septum: Thickness is moderately increased. Septal motion is paradoxical. 3. Aortic valve: Not well visualized. Cusp separation is normal. The mean systolic gradient is 13 mm Hg. The LVOT to aortic valve VTI ratio is 0.19. The valve area by VTI is 0.5 cm . calculated PRIETO is out of proportion to visual AV opening, suggest better visualization of AV. 4. Mitral valve: Leaflet separation is mildly reduced. The pressure half-time is 58 ms. 5. Right ventricle: The cavity size is increased. Wall thickness is normal. Systolic function is mildly to moderately reduced by visual assessment. Systolic pressure is mildly increased. The RV systolic pressure by Doppler is 42 mm Hg. Moderate size ECHO density was noted in RV apex , best seen image 27 and 30, moves with the apex; less likely thrombus or moderator band, more look like large trabeculation of apex; still if clinically indicated suggest better visualization 6. Tricuspid valve: There is moderate regurgitation. 7. Right atrium: The estimated right atrial pressure is 15 mm Hg. 8. Pericardium, extracardiac: A small pericardial effusion is identified. Features are not consistent with tamponade physiology. Recommendations: Suggest VICTOR MANUEL if clinically indicated or repeat limited echo Objective Vitals and Measurements T: 37.0 C (Oral) TMIN: 36.7 C (Oral) TMAX: 37 C (Oral) HR: 78(Monitored) RR: 20 BP: 138/78 SpO2: 97% Intake and Output 7AM Yesterday to 7AM Today Intake and Output (Last 24 hours) Intake Administration Information 200.80 Oral Intake 340.00 Supplement Intake 440.00 Output Urine Voided 1050.00 Urinary Catheter Output: 1900.00 Stool Count 3.00 Urine Count 2.00 Total Summary Total Intake 980.80 Total Output 2950.00 Fluid Balance -1969.20 Physical Exam constitutional: Not in acute distress Neck - Thyroid not enlarged. Eyes: general /bilateral - extraocular Movement s normal - Pupils: PERRLA Ears: No discharge, external auditory meatus normal Cardiovascular: JVD not elevated, S1 S2 present, basilar crackles Abdomen: Auscultation palpation revealed no abnormalities - Abdomen is soft, no abdominal tenderness. Liver: not enlarged Musculoskeletal system: general/bilateral Normal movement of all extremities Neurological: ANO x 2-3, alert Skin: color and pigmentation is normal Weight Dosing Weight: 100.4 kg (04/10/23) Medications Medications (33) Active Scheduled: (17) amiodarone 200 mg tablet 400 mg 2 tab(s), Oral, BIDM aspirin 81 mg EC 81 mg 1 tab(s), Oral, qDayM atorvastatin 40 mg tablet 40 mg 1 tab(s), Oral, qDay bisacodyl 5 mg EC tablet 10 mg 2 tab(s), Oral, qDay ceFAZolin syringe 1 gram(s) 10 mL, IV Push (INT), PREOP pharm cholecalciferol 125 mcg capsule (Vit D3 5000 unit(s)) 125 mcg 1 cap(s), Oral, qDay clopidogrel 75 mg Tablet 75 mg 1 tab(s), Oral, qDay insulin glargine 15 unit(s) 0.15 mL, Subcutaneous (INT), acBreakfast insulin lispro 100 units/mL Soln (3 mL) 5 unit(s) 0.05 mL, Subcutaneous, with breakfast insulin lispro 100 units/mL Soln (3 mL) 5 unit(s) 0.05 mL, Subcutaneous, with lunch insulin lispro 100 units/mL Soln (3 mL) 5 unit(s) 0.05 mL, Subcutaneous, with supper insulin lispro 100 units/mL Soln (3 mL) Give 0-10 units/dose, Subcutaneous, TIDAC losartan 25 mg tablet 25 mg 1 tab(s), Oral, qDay metoprolol succinate 25 mg ER tablet 25 mg 1 tab(s), Oral, BID miconazole topical 2% Powder 1 krishna, Topical, BID mirtazapine 15 mg tablet 30 mg 2 tab(s), Oral, qHS polyethylene glycol 3350 - UD packet 17 gram(s) 15 mL, Oral, qDay Continuous: (1) heparin 25,000 unit(s) [1000 unit(s)/hr] + Dextrose 5% Premix Diluent 250 mL 250 mL, Intravenous, 10 mL/hr PRN: (15) acetaminophen 325 mg Tablet 650 mg 2 tab(s), Oral, q4h dextrose 50% Solution Disp syringe 50 mL 12.5 gram(s) 25 mL, IV Push, AsDirected heparin 5,000 units/mL (1 mL) vial 4,000 unit(s) 0.8 mL, IV Push, q6h hydrocortisone topical 1% Cream 30 gram(s) 1 krishna, Topical, TID loperamide 2 mg capsule 2 mg 1 cap(s), Oral, q4h loratadine 10 mg Tablet 10 mg 1 tab(s), Oral, BID magnesium sulfate 4 gram(s)/100mL PMX 4 g 100 mL, IV Piggyback, AsDirected magnesium sulfate 50% (500mg/mL) 6 g 12 mL, IV Piggyback, AsDirected magnesium sulfate PMX 2 g 50 mL, IV Piggyback, AsDirected nitroglycerin 0.4 mg Tablet (25/btl) 0.4 mg 1 tab(s), Sublingual, q5min ondansetron 4 mg tablet 4 mg 1 tab(s), Oral, q6h potassium chloride (PMX) 20 mEq/100 mL 20 mEq 100 mL, IV Piggyback, AsDirected potassium chloride 20 mEq ER tablet 20 mEq 1 tab(s), Oral, AsDirected potassium chloride 20 mEq ER tablet 40 mEq 2 tab(s), Oral, AsDirected potassium chloride 20 mEq ER tablet 40 mEq 2 tab(s), Oral, AsDirected Lab Results 04/17 04:42 WBC: 6.1 Hgb: 14.0 Hct: 42.8 Platelet: 147 L Neutrophil %: 55.8 Glucose Level: 116 H Sodium Level: 141 Potassium Level: 3.5 BUN: 17.0 Creatinine Lvl (s): 1.15 04/16 12:17 Protime: 11.9 PT International Ratio: 1.0 04/16 04:24 WBC: 4.9 Hgb: 12.2 Hct: 37.6 Platelet: 144 L Neutrophil %: 61.7 Glucose Level: 151 H Sodium Level: 142 Potassium Level: 4.0 BUN: 19.0 Creatinine Lvl (s): 1.19 EKG No qualifying data available. Assessment/Plan Persistent atrial fibrillation on warfarin at home Sick sinus syndrome status post Medtronic dual-chamber pacemaker placement Acute exacerbation of CHF (new systolic drop 30-35%) Heart failure with newly reduced EF (EF 30-35%, reduced from 55-60% in September 2022) CAD s/p RCA stent (04/15/2023) Type II OR Hypertension Hyperlipidemia Type 2 diabetes mellitus (A1c 9.29 Mar 2023) Patient is a 72-year-old female with medical history significant for longstanding persistent atrial fibrillation on warfarin, sinus bradycardia status post dual-chamber pacemaker February 2021 Medtronic, history of CHF with new drop in ejection fraction from September 2022 currently 30 to 35% EF, hypertension, hyperlipidemia, diabetes, who presented as a transfer from [facility] due to shortness of breath, abdominal pain, lower extremity pain and weight gain which have been progressively getting worse over the last few months. Patient admitted for atrial fibrillation w/RVR and NSTEMI with troponin trend 2371 then 3734 then 4390. Patient was cardioverted back to sinus rhythm on 04/14/2023 completed amiodarone IV protocol transition to amiodarone 400 mg p.o. twice daily starting from 04/15/2023. Found to have a drop in EF, Patient was also diuresed with IV Lasix 60 mg twice daily initially, now not on any oral diuretics, takes Lasix 40 mg daily at home. For NSTEMI, patient underwent left heart cath 04/15/2023, status post PCI to RCA. Patient was also noted to have LAD and left circumflex disease, will be brought back as an outpatient for PCI for these lesions. Continue aspirin, plavix, atorvastatin, losartan 25 mg qdaily, metoprolol succinate 25mg BID BP 130-170s, HR 70s, on room air In regards to A-fib with RVR that is now in sinus rhythm after cardioversion yesterday, patient deemed to be a good candidate for hybrid maze in the future. She is subtherapeutic with her INR frequently, hence consideration of JOSE clip will be made in order to better maintain her in sinus rhythm long-term. 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 Given the patient does have subtherapeutic INR, and has memory difficulty, we would ideally like to switch her over to Eliquis after discussing with family member. Spoke to daughter John Paul this morning, she does endorse that patient does not remember to take her medications. We will switch her over to Eliquis during this hospital stay. Currently patient is on IV heparin drip, aspirin and Plavix. Once anticoagulant is decided upon, patient will be discharged with anticoagulant and Plavix. Patient does appear to be volume overloaded on tuesday s/p 1 dose of IV lasix 40 and another dose of IV lasix 40mg on tuesday---> UOP 2.2L, net negative 1.2L. Will consider to transition to lasix 40mg BID PO after today Disposition planning once home health care is set up, hopefully within the next 24-48 hours. Digitally Signed by EJ MORENO MD on 04/17/2023 07:31 PM [facility] 04-17-2023 Cardiology Progress note Date of Service 04/16/2023 Subjective Patient seen and examined, patient does exhibit memory difficulty, not very well aware of her medical history. Attempted to call patient's daughter multiple times in order to discuss regarding anticoagulation plan however the line appears to be busy PPM 03/17/2021 Procedures performed: Lead implantation (right ventricle). Dual-chamber permanent pacemaker implantation. VICTOR MANUEL 04/14/2023 Summary: 1. Left ventricle: Systolic function is moderately to severely reduced by visual assessment. The estimated ejection fraction is 30-35%. 2. Aortic valve: There is no stenosis. 3. Left atrium: There is no evidence of a thrombus in the atrial cavity or appendage. 4. Right atrium: Prominent RV trabeculations. 5. Tricuspid valve: There is moderate regurgitation. 6. Atrial septum: No defect or patent foramen ovale is identified. Color Doppler and agitated saline following an increase in RA pressure induced by provocative maneuvers, shows no qikja-lg-uibr atrial level shunt. Recommendations: Proceed with synchronized cardioversion. ECHO 04/12/2023 Summary: 1. Left ventricle: The cavity size is normal. Wall thickness is normal. Asymmetric Septal Left Ventricular Hypertrophy Systolic function is moderately to severely reduced. The estimated ejection fraction is 30 +/- 5%. Regional wall motion abnormalities cannot be excluded. Diastolic dysfunction present but unable to assess severity. The LVOT systolic velocity-time integral is 11.2 cm. 2. Ventricular septum: Thickness is moderately increased. Septal motion is paradoxical. 3. Aortic valve: Not well visualized. Cusp separation is normal. The mean systolic gradient is 13 mm Hg. The LVOT to aortic valve VTI ratio is 0.19. The valve area by VTI is 0.5 cm . calculated PRIETO is out of proportion to visual AV opening, suggest better visualization of AV. 4. Mitral valve: Leaflet separation is mildly reduced. The pressure half-time is 58 ms. 5. Right ventricle: The cavity size is increased. Wall thickness is normal. Systolic function is mildly to moderately reduced by visual assessment. Systolic pressure is mildly increased. The RV systolic pressure by Doppler is 42 mm Hg. Moderate size ECHO density was noted in RV apex , best seen image 27 and 30, moves with the apex; less likely thrombus or moderator band, more look like large trabeculation of apex; still if clinically indicated suggest better visualization 6. Tricuspid valve: There is moderate regurgitation. 7. Right atrium: The estimated right atrial pressure is 15 mm Hg. 8. Pericardium, extracardiac: A small pericardial effusion is identified. Features are not consistent with tamponade physiology. Recommendations: Suggest VICTOR MANUEL if clinically indicated or repeat limited echo Objective Vitals and Measurements T: 36.6 C (Oral) TMIN: 36.4 C (Oral) TMAX: 36.7 C (Oral) HR: 71(Apical) RR: 20 BP: 172/75 SpO2: 96% Intake and Output 7AM Yesterday to 7AM Today Intake and Output (Last 24 hours) Intake Oral Intake 220.00 Administration Information 91.54 Supplement Intake 0.00 Output Urine Voided 300.00 Urinary Catheter Output: 700.00 Stool Count 0.00 Total Summary Total Intake 311.54 Total Output 1000.00 Fluid Balance -688.46 Physical Exam constitutional: Not in acute distress Neck - Thyroid not enlarged. Eyes: general /bilateral - extraocular Movement s normal - Pupils: PERRLA Ears: No discharge, external auditory meatus normal Cardiovascular: JVD not elevated, S1 S2 present, basilar crackles Abdomen: Auscultation palpation revealed no abnormalities - Abdomen is soft, no abdominal tenderness. Liver: not enlarged Musculoskeletal system: general/bilateral Normal movement of all extremities Neurological: ANO x 2-3, alert Skin: color and pigmentation is normal Weight Dosing Weight: 100.4 kg (04/10/23) Medications Medications (35) Active Scheduled: (19) amiodarone 200 mg tablet 400 mg 2 tab(s), Oral, BIDM aspirin 81 mg EC 81 mg 1 tab(s), Oral, qDayM atorvastatin 40 mg tablet 40 mg 1 tab(s), Oral, qDay bisacodyl 5 mg EC tablet 10 mg 2 tab(s), Oral, qDay ceFAZolin syringe 1 gram(s) 10 mL, IV Push (INT), PREOP pharm cholecalciferol 125 mcg capsule (Vit D3 5000 unit(s)) 125 mcg 1 cap(s), Oral, qDay clopidogrel 75 mg Tablet 75 mg 1 tab(s), Oral, qDay docusate sodium 100 mg Capsule 100 mg 1 cap(s), Oral, BID insulin glargine 15 unit(s) 0.15 mL, Subcutaneous (INT), acBreakfast insulin lispro 100 units/mL Soln (3 mL) 5 unit(s) 0.05 mL, Subcutaneous, with breakfast insulin lispro 100 units/mL Soln (3 mL) 5 unit(s) 0.05 mL, Subcutaneous, with lunch insulin lispro 100 units/mL Soln (3 mL) 5 unit(s) 0.05 mL, Subcutaneous, with supper insulin lispro 100 units/mL Soln (3 mL) Give 0-10 units/dose, Subcutaneous, TIDAC losartan 25 mg tablet 25 mg 1 tab(s), Oral, qDay metoprolol succinate 25 mg ER tablet 25 mg 1 tab(s), Oral, BID miconazole topical 2% Powder 1 krishna, Topical, BID mirtazapine 15 mg tablet 30 mg 2 tab(s), Oral, qHS polyethylene glycol 3350 - UD packet 17 gram(s) 15 mL, Oral, qDay senna 8.6 mg Tablet 8.6 mg 1 tab(s), Oral, BID Continuous: (1) heparin 25,000 unit(s) [1000 unit(s)/hr] + Dextrose 5% Premix Diluent 250 mL 250 mL, Intravenous, 10 mL/hr PRN: (15) acetaminophen 325 mg Tablet 650 mg 2 tab(s), Oral, q4h dextrose 50% Solution Disp syringe 50 mL 12.5 gram(s) 25 mL, IV Push, AsDirected heparin 5,000 units/mL (1 mL) vial 4,000 unit(s) 0.8 mL, IV Push, q6h hydrocortisone topical 1% Cream 30 gram(s) 1 krishna, Topical, TID loratadine 10 mg Tablet 10 mg 1 tab(s), Oral, BID magnesium sulfate 4 gram(s)/100mL PMX 4 g 100 mL, IV Piggyback, AsDirected magnesium sulfate 50% (500mg/mL) 6 g 12 mL, IV Piggyback, AsDirected magnesium sulfate PMX 2 g 50 mL, IV Piggyback, AsDirected nitroglycerin 0.4 mg Tablet (25/btl) 0.4 mg 1 tab(s), Sublingual, q5min ondansetron 4 mg tablet 4 mg 1 tab(s), Oral, q6h polyethylene glycol 3350 - UD packet 17 gram(s) 15 mL, Oral, BID potassium chloride (PMX) 20 mEq/100 mL 20 mEq 100 mL, IV Piggyback, AsDirected potassium chloride 20 mEq ER tablet 20 mEq 1 tab(s), Oral, AsDirected potassium chloride 20 mEq ER tablet 40 mEq 2 tab(s), Oral, AsDirected potassium chloride 20 mEq ER tablet 40 mEq 2 tab(s), Oral, AsDirected Lab Results 04/16 04:24 WBC: 4.9 Hgb: 12.2 Hct: 37.6 Platelet: 144 L Neutrophil %: 61.7 Glucose Level: 151 H Sodium Level: 142 Potassium Level: 4.0 BUN: 19.0 Creatinine Lvl (s): 1.19 04/15 04:16 WBC: 6.3 Hgb: 14.1 Hct: 41.6 Platelet: 165 Neutrophil %: 62.1 Glucose Level: 174 H Sodium Level: 139 Potassium Level: 4.0 BUN: 23.0 H Creatinine Lvl (s): 1.38 H EKG No qualifying data available. Assessment/Plan Orders: clopidogrel, Start: 04/16/23 9:00:00 EST, Dose = 75 mg, = 1 tab(s), Oral, qDay, 04/16/23 8:20:00 EST Persistent atrial fibrillation on warfarin at home Sick sinus syndrome status post Medtronic dual-chamber pacemaker placement Acute exacerbation of CHF (new systolic drop 30-35%) Heart failure with newly reduced EF (EF 30-35%, reduced from 55-60% in September 2022) CAD s/p RCA stent (04/15/2023) Type II OR Hypertension Hyperlipidemia Type 2 diabetes mellitus (A1c 9.29 Mar 2023) Patient is a 72-year-old female with medical history significant for longstanding persistent atrial fibrillation on warfarin, sinus bradycardia status post dual-chamber pacemaker February 2021 Medtronic, history of CHF with new drop in ejection fraction from September 2022 currently 30 to 35% EF, hypertension, hyperlipidemia, diabetes, who presented as a transfer from [facility] due to shortness of breath, abdominal pain, lower extremity pain and weight gain which have been progressively getting worse over the last few months. Patient admitted for atrial fibrillation w/RVR and NSTEMI with troponin trend 2371 then 3734 then 4390. Patient was cardioverted back to sinus rhythm on 04/14/2023 completed amiodarone IV protocol transition to amiodarone 400 mg p.o. twice daily from 04/15/2023. Found to have a drop in EF, Patient was also diuresed with IV Lasix 60 mg twice daily initially, now not on any oral diuretics, takes Lasix 40 mg daily at home. For NSTEMI, patient underwent left heart cath 04/15/2023, status post PCI to RCA. Patient was also noted to have LAD and left circumflex disease, will be brought back as an outpatient for PCI for these lesions. Continue aspirin, plavix, atorvastatin, losartan 25 mg qdaily, metoprolol succinate 25mg BID BP 130-170s, HR 70s, has PPM In regards to A-fib with RVR that is now in sinus rhythm after cardioversion yesterday, patient deemed to be a good candidate for hybrid maze in the future. She is subtherapeutic with her INR frequently, hence consideration of JOSE clip will be made in order to better maintain her in sinus rhythm long-term. 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 Given the patient does have subtherapeutic INR, and has memory difficulty, we would ideally like to switch her over to Eliquis after discussing with family member. Attempted multiple multiple times to reach out to patient's family, This evening at [phone], daughter John Paul, will attempt again tomorrow in order to discuss anticoagulation for safe DC home. Currently patient is on IV heparin drip, aspirin and Plavix. Once anticoagulant is decided upon, patient will be discharged with anticoagulant and Plavix. Patient does appear to be volume overloaded today, will give 1 dose of IV Lasix 40 mg. Digitally Signed by EJ MORENO MD on 04/16/2023 07:20 PM Digitally Signed by EJ MORENO MD on 04/17/2023 07:33 AM [facility] 04-17-2023 Cardiology Progress note Date of Service 04/17/2023 Subjective No acute complaints, eating breakfast this morning PPM 03/17/2021 Procedures performed: Lead implantation (right ventricle). Dual-chamber permanent pacemaker implantation. VICTOR MANUEL 04/14/2023 Summary: 1. Left ventricle: Systolic function is moderately to severely reduced by visual assessment. The estimated ejection fraction is 30-35%. 2. Aortic valve: There is no stenosis. 3. Left atrium: There is no evidence of a thrombus in the atrial cavity or appendage. 4. Right atrium: Prominent RV trabeculations. 5. Tricuspid valve: There is moderate regurgitation. 6. Atrial septum: No defect or patent foramen ovale is identified. Color Doppler and agitated saline following an increase in RA pressure induced by provocative maneuvers, shows no [id number] atrial level shunt. Recommendations: Proceed with synchronized cardioversion. ECHO 04/12/2023 Summary: 1. Left ventricle: The cavity size is normal. Wall thickness is normal. Asymmetric Septal Left Ventricular Hypertrophy Systolic function is moderately to severely reduced. The estimated ejection fraction is 30 +/- 5%. Regional wall motion abnormalities cannot be excluded. Diastolic dysfunction present but unable to assess severity. The LVOT systolic velocity-time integral is 11.2 cm. 2. Ventricular septum: Thickness is moderately increased. Septal motion is paradoxical. 3. Aortic valve: Not well visualized. Cusp separation is normal. The mean systolic gradient is 13 mm Hg. The LVOT to aortic valve VTI ratio is 0.19. The valve area by VTI is 0.5 cm . calculated PRIETO is out of proportion to visual AV opening, suggest better visualization of AV. 4. Mitral valve: Leaflet separation is mildly reduced. The pressure half-time is 58 ms. 5. Right ventricle: The cavity size is increased. Wall thickness is normal. Systolic function is mildly to moderately reduced by visual assessment. Systolic pressure is mildly increased. The RV systolic pressure by Doppler is 42 mm Hg. Moderate size ECHO density was noted in RV apex , best seen image 27 and 30, moves with the apex; less likely thrombus or moderator band, more look like large trabeculation of apex; still if clinically indicated suggest better visualization 6. Tricuspid valve: There is moderate regurgitation. 7. Right atrium: The estimated right atrial pressure is 15 mm Hg. 8. Pericardium, extracardiac: A small pericardial effusion is identified. Features are not consistent with tamponade physiology. Recommendations: Suggest VICTOR MANUEL if clinically indicated or repeat limited echo Objective Vitals and Measurements T: 37.0 C (Oral) TMIN: 36.7 C (Oral) TMAX: 37 C (Oral) HR: 78(Monitored) RR: 20 BP: 138/78 SpO2: 97% Intake and Output 7AM Yesterday to 7AM Today Intake and Output (Last 24 hours) Intake Administration Information 200.80 Oral Intake 340.00 Supplement Intake 440.00 Output Urine Voided 1050.00 Urinary Catheter Output: 1900.00 Stool Count 3.00 Urine Count 2.00 Total Summary Total Intake 980.80 Total Output 2950.00 Fluid Balance -1969.20 Physical Exam constitutional: Not in acute distress Neck - Thyroid not enlarged. Eyes: general /bilateral - extraocular Movement s normal - Pupils: PERRLA Ears: No discharge, external auditory meatus normal Cardiovascular: JVD not elevated, S1 S2 present, basilar crackles Abdomen: Auscultation palpation revealed no abnormalities - Abdomen is soft, no abdominal tenderness. Liver: not enlarged Musculoskeletal system: general/bilateral Normal movement of all extremities Neurological: ANO x 2-3, alert Skin: color and pigmentation is normal Weight Dosing Weight: 100.4 kg (04/10/23) Medications Medications (33) Active Scheduled: (17) amiodarone 200 mg tablet 400 mg 2 tab(s), Oral, BIDM aspirin 81 mg EC 81 mg 1 tab(s), Oral, qDayM atorvastatin 40 mg tablet 40 mg 1 tab(s), Oral, qDay bisacodyl 5 mg EC tablet 10 mg 2 tab(s), Oral, qDay ceFAZolin syringe 1 gram(s) 10 mL, IV Push (INT), PREOP pharm cholecalciferol 125 mcg capsule (Vit D3 5000 unit(s)) 125 mcg 1 cap(s), Oral, qDay clopidogrel 75 mg Tablet 75 mg 1 tab(s), Oral, qDay insulin glargine 15 unit(s) 0.15 mL, Subcutaneous (INT), acBreakfast insulin lispro 100 units/mL Soln (3 mL) 5 unit(s) 0.05 mL, Subcutaneous, with breakfast insulin lispro 100 units/mL Soln (3 mL) 5 unit(s) 0.05 mL, Subcutaneous, with lunch insulin lispro 100 units/mL Soln (3 mL) 5 unit(s) 0.05 mL, Subcutaneous, with supper insulin lispro 100 units/mL Soln (3 mL) Give 0-10 units/dose, Subcutaneous, TIDAC losartan 25 mg tablet 25 mg 1 tab(s), Oral, qDay metoprolol succinate 25 mg ER tablet 25 mg 1 tab(s), Oral, BID miconazole topical 2% Powder 1 krishna, Topical, BID mirtazapine 15 mg tablet 30 mg 2 tab(s), Oral, qHS polyethylene glycol 3350 - UD packet 17 gram(s) 15 mL, Oral, qDay Continuous: (1) heparin 25,000 unit(s) [1000 unit(s)/hr] + Dextrose 5% Premix Diluent 250 mL 250 mL, Intravenous, 10 mL/hr PRN: (15) acetaminophen 325 mg Tablet 650 mg 2 tab(s), Oral, q4h dextrose 50% Solution Disp syringe 50 mL 12.5 gram(s) 25 mL, IV Push, AsDirected heparin 5,000 units/mL (1 mL) vial 4,000 unit(s) 0.8 mL, IV Push, q6h hydrocortisone topical 1% Cream 30 gram(s) 1 krishna, Topical, TID loperamide 2 mg capsule 2 mg 1 cap(s), Oral, q4h loratadine 10 mg Tablet 10 mg 1 tab(s), Oral, BID magnesium sulfate 4 gram(s)/100mL PMX 4 g 100 mL, IV Piggyback, AsDirected magnesium sulfate 50% (500mg/mL) 6 g 12 mL, IV Piggyback, AsDirected magnesium sulfate PMX 2 g 50 mL, IV Piggyback, AsDirected nitroglycerin 0.4 mg Tablet (25/btl) 0.4 mg 1 tab(s), Sublingual, q5min ondansetron 4 mg tablet 4 mg 1 tab(s), Oral, q6h potassium chloride (PMX) 20 mEq/100 mL 20 mEq 100 mL, IV Piggyback, AsDirected potassium chloride 20 mEq ER tablet 20 mEq 1 tab(s), Oral, AsDirected potassium chloride 20 mEq ER tablet 40 mEq 2 tab(s), Oral, AsDirected potassium chloride 20 mEq ER tablet 40 mEq 2 tab(s), Oral, AsDirected Lab Results 04/17 04:42 WBC: 6.1 Hgb: 14.0 Hct: 42.8 Platelet: 147 L Neutrophil %: 55.8 Glucose Level: 116 H Sodium Level: 141 Potassium Level: 3.5 BUN: 17.0 Creatinine Lvl (s): 1.15 04/16 12:17 Protime: 11.9 PT International Ratio: 1.0 04/16 04:24 WBC: 4.9 Hgb: 12.2 Hct: 37.6 Platelet: 144 L Neutrophil %: 61.7 Glucose Level: 151 H Sodium Level: 142 Potassium Level: 4.0 BUN: 19.0 Creatinine Lvl (s): 1.19 EKG No qualifying data available. Assessment/Plan Persistent atrial fibrillation on warfarin at home Sick sinus syndrome status post Medtronic dual-chamber pacemaker placement Acute exacerbation of CHF (new systolic drop 30-35%) Heart failure with newly reduced EF (EF 30-35%, reduced from 55-60% in September 2022) CAD s/p RCA stent (04/15/2023) Type II OR Hypertension Hyperlipidemia Type 2 diabetes mellitus (A1c 9.29 Mar 2023) Patient is a 72-year-old female with medical history significant for longstanding persistent atrial fibrillation on warfarin, sinus bradycardia status post dual-chamber pacemaker February 2021 Medtronic, history of CHF with new drop in ejection fraction from September 2022 currently 30 to 35% EF, hypertension, hyperlipidemia, diabetes, who presented as a transfer from [facility] due to shortness of breath, abdominal pain, lower extremity pain and weight gain which have been progressively getting worse over the last few months. Patient admitted for atrial fibrillation w/RVR and NSTEMI with troponin trend 2371 then 3734 then 4390. Patient was cardioverted back to sinus rhythm on 04/14/2023 completed amiodarone IV protocol transition to amiodarone 400 mg p.o. twice daily starting from 04/15/2023. Found to have a drop in EF, Patient was also diuresed with IV Lasix 60 mg twice daily initially, now not on any oral diuretics, takes Lasix 40 mg daily at home. For NSTEMI, patient underwent left heart cath 04/15/2023, status post PCI to RCA. Patient was also noted to have LAD and left circumflex disease, will be brought back as an outpatient for PCI for these lesions. Continue aspirin, plavix, atorvastatin, losartan 25 mg qdaily, metoprolol succinate 25mg BID BP 130-170s, HR 70s, on room air In regards to A-fib with RVR that is now in sinus rhythm after cardioversion yesterday, patient deemed to be a good candidate for hybrid maze in the future. She is subtherapeutic with her INR frequently, hence consideration of JOSE clip will be made in order to better maintain her in sinus rhythm long-term. 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 Given the patient does have subtherapeutic INR, and has memory difficulty, we would ideally like to switch her over to Eliquis after discussing with family member. Spoke to daughter John Paul this morning, she does endorse that patient does not remember to take her medications. We will switch her over to Eliquis during this hospital stay. Currently patient is on IV heparin drip, aspirin and Plavix. Once anticoagulant is decided upon, patient will be discharged with anticoagulant and Plavix. Patient does appear to be volume overloaded on tuesday s/p 1 dose of IV lasix 40 and another dose of IV lasix 40mg on tuesday---> UOP 2.2L, net negative 1.2L. Will consider to transition to lasix 40mg BID PO after today Disposition planning once home health care is set up, hopefully within the next 24-48 hours. Digitally Signed by EJ MORENO MD on 04/17/2023 07:31 PM [facility] 04-16-2023 Cardiology Progress note Date of Service 04/16/2023 Subjective Patient seen and examined, patient does exhibit memory difficulty, not very well aware of her medical history. Attempted to call patient's daughter multiple times in order to discuss regarding anticoagulation plan however the line appears to be busy PPM 03/17/2021 Procedures performed: Lead implantation (right ventricle). Dual-chamber permanent pacemaker implantation. VICTOR MANUEL 04/14/2023 Summary: 1. Left ventricle: Systolic function is moderately to severely reduced by visual assessment. The estimated ejection fraction is 30-35%. 2. Aortic valve: There is no stenosis. 3. Left atrium: There is no evidence of a thrombus in the atrial cavity or appendage. 4. Right atrium: Prominent RV trabeculations. 5. Tricuspid valve: There is moderate regurgitation. 6. Atrial septum: No defect or patent foramen ovale is identified. Color Doppler and agitated saline following an increase in RA pressure induced by provocative maneuvers, shows no [id number] atrial level shunt. Recommendations: Proceed with synchronized cardioversion. ECHO 04/12/2023 Summary: 1. Left ventricle: The cavity size is normal. Wall thickness is normal. Asymmetric Septal Left Ventricular Hypertrophy Systolic function is moderately to severely reduced. The estimated ejection fraction is 30 +/- 5%. Regional wall motion abnormalities cannot be excluded. Diastolic dysfunction present but unable to assess severity. The LVOT systolic velocity-time integral is 11.2 cm. 2. Ventricular septum: Thickness is moderately increased. Septal motion is paradoxical. 3. Aortic valve: Not well visualized. Cusp separation is normal. The mean systolic gradient is 13 mm Hg. The LVOT to aortic valve VTI ratio is 0.19. The valve area by VTI is 0.5 cm . calculated PRIETO is out of proportion to visual AV opening, suggest better visualization of AV. 4. Mitral valve: Leaflet separation is mildly reduced. The pressure half-time is 58 ms. 5. Right ventricle: The cavity size is increased. Wall thickness is normal. Systolic function is mildly to moderately reduced by visual assessment. Systolic pressure is mildly increased. The RV systolic pressure by Doppler is 42 mm Hg. Moderate size ECHO density was noted in RV apex , best seen image 27 and 30, moves with the apex; less likely thrombus or moderator band, more look like large trabeculation of apex; still if clinically indicated suggest better visualization 6. Tricuspid valve: There is moderate regurgitation. 7. Right atrium: The estimated right atrial pressure is 15 mm Hg. 8. Pericardium, extracardiac: A small pericardial effusion is identified. Features are not consistent with tamponade physiology. Recommendations: Suggest VICTOR MANUEL if clinically indicated or repeat limited echo Objective Vitals and Measurements T: 36.6 C (Oral) TMIN: 36.4 C (Oral) TMAX: 36.7 C (Oral) HR: 71(Apical) RR: 20 BP: 172/75 SpO2: 96% Intake and Output 7AM Yesterday to 7AM Today Intake and Output (Last 24 hours) Intake Oral Intake 220.00 Administration Information 91.54 Supplement Intake 0.00 Output Urine Voided 300.00 Urinary Catheter Output: 700.00 Stool Count 0.00 Total Summary Total Intake 311.54 Total Output 1000.00 Fluid Balance -688.46 Physical Exam constitutional: Not in acute distress Neck - Thyroid not enlarged. Eyes: general /bilateral - extraocular Movement s normal - Pupils: PERRLA Ears: No discharge, external auditory meatus normal Cardiovascular: JVD not elevated, S1 S2 present, basilar crackles Abdomen: Auscultation palpation revealed no abnormalities - Abdomen is soft, no abdominal tenderness. Liver: not enlarged Musculoskeletal system: general/bilateral Normal movement of all extremities Neurological: ANO x 2-3, alert Skin: color and pigmentation is normal Weight Dosing Weight: 100.4 kg (04/10/23) Medications Medications (35) Active Scheduled: (19) amiodarone 200 mg tablet 400 mg 2 tab(s), Oral, BIDM aspirin 81 mg EC 81 mg 1 tab(s), Oral, qDayM atorvastatin 40 mg tablet 40 mg 1 tab(s), Oral, qDay bisacodyl 5 mg EC tablet 10 mg 2 tab(s), Oral, qDay ceFAZolin syringe 1 gram(s) 10 mL, IV Push (INT), PREOP pharm cholecalciferol 125 mcg capsule (Vit D3 5000 unit(s)) 125 mcg 1 cap(s), Oral, qDay clopidogrel 75 mg Tablet 75 mg 1 tab(s), Oral, qDay docusate sodium 100 mg Capsule 100 mg 1 cap(s), Oral, BID insulin glargine 15 unit(s) 0.15 mL, Subcutaneous (INT), acBreakfast insulin lispro 100 units/mL Soln (3 mL) 5 unit(s) 0.05 mL, Subcutaneous, with breakfast insulin lispro 100 units/mL Soln (3 mL) 5 unit(s) 0.05 mL, Subcutaneous, with lunch insulin lispro 100 units/mL Soln (3 mL) 5 unit(s) 0.05 mL, Subcutaneous, with supper insulin lispro 100 units/mL Soln (3 mL) Give 0-10 units/dose, Subcutaneous, TIDAC losartan 25 mg tablet 25 mg 1 tab(s), Oral, qDay metoprolol succinate 25 mg ER tablet 25 mg 1 tab(s), Oral, BID miconazole topical 2% Powder 1 krishna, Topical, BID mirtazapine 15 mg tablet 30 mg 2 tab(s), Oral, qHS polyethylene glycol 3350 - UD packet 17 gram(s) 15 mL, Oral, qDay senna 8.6 mg Tablet 8.6 mg 1 tab(s), Oral, BID Continuous: (1) heparin 25,000 unit(s) [1000 unit(s)/hr] + Dextrose 5% Premix Diluent 250 mL 250 mL, Intravenous, 10 mL/hr PRN: (15) acetaminophen 325 mg Tablet 650 mg 2 tab(s), Oral, q4h dextrose 50% Solution Disp syringe 50 mL 12.5 gram(s) 25 mL, IV Push, AsDirected heparin 5,000 units/mL (1 mL) vial 4,000 unit(s) 0.8 mL, IV Push, q6h hydrocortisone topical 1% Cream 30 gram(s) 1 krishna, Topical, TID loratadine 10 mg Tablet 10 mg 1 tab(s), Oral, BID magnesium sulfate 4 gram(s)/100mL PMX 4 g 100 mL, IV Piggyback, AsDirected magnesium sulfate 50% (500mg/mL) 6 g 12 mL, IV Piggyback, AsDirected magnesium sulfate PMX 2 g 50 mL, IV Piggyback, AsDirected nitroglycerin 0.4 mg Tablet (25/btl) 0.4 mg 1 tab(s), Sublingual, q5min ondansetron 4 mg tablet 4 mg 1 tab(s), Oral, q6h polyethylene glycol 3350 - UD packet 17 gram(s) 15 mL, Oral, BID potassium chloride (PMX) 20 mEq/100 mL 20 mEq 100 mL, IV Piggyback, AsDirected potassium chloride 20 mEq ER tablet 20 mEq 1 tab(s), Oral, AsDirected potassium chloride 20 mEq ER tablet 40 mEq 2 tab(s), Oral, AsDirected potassium chloride 20 mEq ER tablet 40 mEq 2 tab(s), Oral, AsDirected Lab Results 04/16 04:24 WBC: 4.9 Hgb: 12.2 Hct: 37.6 Platelet: 144 L Neutrophil %: 61.7 Glucose Level: 151 H Sodium Level: 142 Potassium Level: 4.0 BUN: 19.0 Creatinine Lvl (s): 1.19 04/15 04:16 WBC: 6.3 Hgb: 14.1 Hct: 41.6 Platelet: 165 Neutrophil %: 62.1 Glucose Level: 174 H Sodium Level: 139 Potassium Level: 4.0 BUN: 23.0 H Creatinine Lvl (s): 1.38 H EKG No qualifying data available. Assessment/Plan Orders: clopidogrel, Start: 04/16/23 9:00:00 EST, Dose = 75 mg, = 1 tab(s), Oral, qDay, 04/16/23 8:20:00 EST Persistent atrial fibrillation on warfarin at home Sick sinus syndrome status post Medtronic dual-chamber pacemaker placement Acute exacerbation of CHF (new systolic drop 30-35%) Heart failure with newly reduced EF (EF 30-35%, reduced from 55-60% in September 2022) CAD s/p RCA stent (04/15/2023) Type II OR Hypertension Hyperlipidemia Type 2 diabetes mellitus (A1c 9.29 Mar 2023) Patient is a 72-year-old female with medical history significant for longstanding persistent atrial fibrillation on warfarin, sinus bradycardia status post dual-chamber pacemaker February 2021 Medtronic, history of CHF with new drop in ejection fraction from September 2022 currently 30 to 35% EF, hypertension, hyperlipidemia, diabetes, who presented as a transfer from [facility] due to shortness of breath, abdominal pain, lower extremity pain and weight gain which have been progressively getting worse over the last few months. Patient admitted for atrial fibrillation w/RVR and NSTEMI with troponin trend 2371 then 3734 then 4390. Patient was cardioverted back to sinus rhythm on 04/14/2023 completed amiodarone IV protocol transition to amiodarone 400 mg p.o. twice daily from 04/15/2023. Found to have a drop in EF, Patient was also diuresed with IV Lasix 60 mg twice daily initially, now not on any oral diuretics, takes Lasix 40 mg daily at home. For NSTEMI, patient underwent left heart cath 04/15/2023, status post PCI to RCA. Patient was also noted to have LAD and left circumflex disease, will be brought back as an outpatient for PCI for these lesions. Continue aspirin, plavix, atorvastatin, losartan 25 mg qdaily, metoprolol succinate 25mg BID BP 130-170s, HR 70s, has PPM In regards to A-fib with RVR that is now in sinus rhythm after cardioversion yesterday, patient deemed to be a good candidate for hybrid maze in the future. She is subtherapeutic with her INR frequently, hence consideration of JOSE clip will be made in order to better maintain her in sinus rhythm long-term. 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 Given the patient does have subtherapeutic INR, and has memory difficulty, we would ideally like to switch her over to Eliquis after discussing with family member. Attempted multiple multiple times to reach out to patient's family, This evening at [phone], daughter John Paul, will attempt again tomorrow in order to discuss anticoagulation for safe DC home. Currently patient is on IV heparin drip, aspirin and Plavix. Once anticoagulant is decided upon, patient will be discharged with anticoagulant and Plavix. Patient does appear to be volume overloaded today, will give 1 dose of IV Lasix 40 mg. Digitally Signed by EJ MORENO MD on 04/16/2023 07:20 PM Digitally Signed by EJ MORENO MD on 04/17/2023 07:33 AM [facility] 04-16-2023 Note Date of Service 04/15/2023 Subjective 72-year-old with longstanding persistent atrial fibrillation, sinus bradycardia s/p DDD-PPM on 03/18/2021 (Medtronic), high ventricular pacing 60%, CHF, chronic venous stasis, subtherapeutic INR, HTN, HLP, GERD, diabetes, dizziness, bipolar, and other problems who EP is now consulted for atrial fibrillation management in setting of CHF. Patient has had couple months of swelling, fluid retention, dyspnea. She states her PCP was try to manage this, but ultimately she did not get better, and is now hospitalized. Her INR is 1.3. She was on sotalol at home, which is now discontinued. Patient underwent VICTOR MANUEL and cardioversion. Left heart catheterization was done and patient got mid RCA stent today. She denied active chest pain, palpitation and orthopnea. Echocardiogram 04/12/2023 (EF - 60% in September 2022) EF 30-35%, LVOT VTI 11.2 Diastolic dysfunction is present Moderately increased IVS thickness with paradoxical septal motion Aortic valve area 0.5, disproportionate to visual aortic valve opening. Needs further study Objective Vitals and Measurements T: 36.7 C (Oral) TMIN: 36.4 C (Oral) TMAX: 36.7 C (Oral) HR: 80(Monitored) RR: 18 BP: 166/77 SpO2: 95% Intake and Output 7AM Yesterday to 7AM Today Intake and Output (Last 24 hours) Intake Oral Intake 50.00 Output Urine Voided 450.00 Stool Count 0.00 Total Summary Total Intake 50.00 Total Output 450.00 Fluid Balance -400.00 Physical Exam General Appearance: Patient comfortably lying on bed, not in acute distress Head: Normocephalic, atraumatic EENT: PERRLA, Neck: Supple, no JVD, no mass Cardiac: s1s2,RRR, no murmurs or rubs or gallops Lungs: Clear to auscultation bilaterally, no wheeze or rhonchi or crackles Abdomen: Soft , Nontender, no organomegaly, bowel sounds heard Musculoskeletal: Full ROM , no gross deformities Extremities: No rash or ulcers or pedal edema Neurological: Alert, oriented x 3, grossly no focal neurological deficits Skin: No rash or ulcers Weight Dosing Weight: 100.4 kg (04/10/23) Medications Medications (34) Active Scheduled: (18) amiodarone 200 mg tablet 400 mg 2 tab(s), Oral, BIDM aspirin 81 mg EC 81 mg 1 tab(s), Oral, qDayM atorvastatin 40 mg tablet 40 mg 1 tab(s), Oral, qDay bisacodyl 5 mg EC tablet 10 mg 2 tab(s), Oral, qDay ceFAZolin syringe 1 gram(s) 10 mL, IV Push (INT), PREOP pharm cholecalciferol 125 mcg capsule (Vit D3 5000 unit(s)) 125 mcg 1 cap(s), Oral, qDay docusate sodium 100 mg Capsule 100 mg 1 cap(s), Oral, BID insulin glargine 15 unit(s) 0.15 mL, Subcutaneous (INT), acBreakfast insulin lispro 100 units/mL Soln (3 mL) 5 unit(s) 0.05 mL, Subcutaneous, with breakfast insulin lispro 100 units/mL Soln (3 mL) 5 unit(s) 0.05 mL, Subcutaneous, with lunch insulin lispro 100 units/mL Soln (3 mL) 5 unit(s) 0.05 mL, Subcutaneous, with supper insulin lispro 100 units/mL Soln (3 mL) Give 0-10 units/dose, Subcutaneous, TIDAC losartan 25 mg tablet 25 mg 1 tab(s), Oral, qDay metoprolol succinate 25 mg ER tablet 25 mg 1 tab(s), Oral, BID miconazole topical 2% Powder 1 krishna, Topical, BID mirtazapine 15 mg tablet 30 mg 2 tab(s), Oral, qHS polyethylene glycol 3350 - UD packet 17 gram(s) 15 mL, Oral, qDay senna 8.6 mg Tablet 8.6 mg 1 tab(s), Oral, BID Continuous: (2) heparin 25,000 unit(s) [1000 unit(s)/hr] + Dextrose 5% Premix Diluent 250 mL 250 mL, Intravenous, 10 mL/hr NS (0.9% nacl) 1,000 mL 1,000 mL, Intravenous, 20 mL/hr PRN: (14) acetaminophen 325 mg Tablet 650 mg 2 tab(s), Oral, q4h dextrose 50% Solution Disp syringe 50 mL 12.5 gram(s) 25 mL, IV Push, AsDirected heparin 5,000 units/mL (1 mL) vial 4,000 unit(s) 0.8 mL, IV Push, q6h loratadine 10 mg Tablet 10 mg 1 tab(s), Oral, BID magnesium sulfate 4 gram(s)/100mL PMX 4 g 100 mL, IV Piggyback, AsDirected magnesium sulfate 50% (500mg/mL) 6 g 12 mL, IV Piggyback, AsDirected magnesium sulfate PMX 2 g 50 mL, IV Piggyback, AsDirected nitroglycerin 0.4 mg Tablet (25/btl) 0.4 mg 1 tab(s), Sublingual, q5min ondansetron 4 mg tablet 4 mg 1 tab(s), Oral, q6h polyethylene glycol 3350 - UD packet 17 gram(s) 15 mL, Oral, BID potassium chloride (PMX) 20 mEq/100 mL 20 mEq 100 mL, IV Piggyback, AsDirected potassium chloride 20 mEq ER tablet 20 mEq 1 tab(s), Oral, AsDirected potassium chloride 20 mEq ER tablet 40 mEq 2 tab(s), Oral, AsDirected potassium chloride 20 mEq ER tablet 40 mEq 2 tab(s), Oral, AsDirected Lab Results 04/15 04:16 WBC: 6.3 Hgb: 14.1 Hct: 41.6 Platelet: 165 Neutrophil %: 62.1 Glucose Level: 174 H Sodium Level: 139 Potassium Level: 4.0 BUN: 23.0 H Creatinine Lvl (s): 1.38 H 04/14 04:32 WBC: 4.4 L Hgb: 14.2 Hct: 42.8 Platelet: 168 Neutrophil %: 63.5 Glucose Level: 208 H Sodium Level: 139 Potassium Level: 4.1 BUN: 22.0 Creatinine Lvl (s): 1.48 H EKG No qualifying data available. 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 Patient is in sinus rhythm now. - Continue anticoagulation and antiplatelet. - Continue amiodarone and metoprolol. She may be a good candidate for hybrid maze in the future, given she is subtherapeutic INR frequently, and they can place JOSE clip and she would have a better chance of maintaining sinus rhythm long-term. Continue electrolyte repletion with target magnesium 2 and potassium 4. 2. CHF -Echocardiogram showed further reduction in EF down to 30-35% with low LVOT VTI. Patient got RCA stent today, pending final report. Continue diuretic as per general cardiology 3. DDD-PPM present. V pacing 60%. Normal device function. - Patient has high RV pacing and further reduction of her EF. Patient qualifies for CRTD upgrade if no improvement in EF after 3 months. 4. Comorbid conditions as above Digitally Signed by GEORGE BA MD on 04/15/2023 01:40 PM [facility] 04-15-2023 Note Date of Service 04/15/2023 Subjective 72-year-old with longstanding persistent atrial fibrillation, sinus bradycardia s/p DDD-PPM on 03/18/2021 (Medtronic), high ventricular pacing 60%, CHF, chronic venous stasis, subtherapeutic INR, HTN, HLP, GERD, diabetes, dizziness, bipolar, and other problems who EP is now consulted for atrial fibrillation management in setting of CHF. Patient has had couple months of swelling, fluid retention, dyspnea. She states her PCP was try to manage this, but ultimately she did not get better, and is now hospitalized. Her INR is 1.3. She was on sotalol at home, which is now discontinued. Patient underwent VICTOR MANUEL and cardioversion. Left heart catheterization was done and patient got mid RCA stent today. She denied active chest pain, palpitation and orthopnea. Echocardiogram 04/12/2023 (EF - 60% in September 2022) EF 30-35%, LVOT VTI 11.2 Diastolic dysfunction is present Moderately increased IVS thickness with paradoxical septal motion Aortic valve area 0.5, disproportionate to visual aortic valve opening. Needs further study Objective Vitals and Measurements T: 36.7 C (Oral) TMIN: 36.4 C (Oral) TMAX: 36.7 C (Oral) HR: 80(Monitored) RR: 18 BP: 166/77 SpO2: 95% Intake and Output 7AM Yesterday to 7AM Today Intake and Output (Last 24 hours) Intake Oral Intake 50.00 Output Urine Voided 450.00 Stool Count 0.00 Total Summary Total Intake 50.00 Total Output 450.00 Fluid Balance -400.00 Physical Exam General Appearance: Patient comfortably lying on bed, not in acute distress Head: Normocephalic, atraumatic EENT: PERRLA, Neck: Supple, no JVD, no mass Cardiac: s1s2,RRR, no murmurs or rubs or gallops Lungs: Clear to auscultation bilaterally, no wheeze or rhonchi or crackles Abdomen: Soft , Nontender, no organomegaly, bowel sounds heard Musculoskeletal: Full ROM , no gross deformities Extremities: No rash or ulcers or pedal edema Neurological: Alert, oriented x 3, grossly no focal neurological deficits Skin: No rash or ulcers Weight Dosing Weight: 100.4 kg (04/10/23) Medications Medications (34) Active Scheduled: (18) amiodarone 200 mg tablet 400 mg 2 tab(s), Oral, BIDM aspirin 81 mg EC 81 mg 1 tab(s), Oral, qDayM atorvastatin 40 mg tablet 40 mg 1 tab(s), Oral, qDay bisacodyl 5 mg EC tablet 10 mg 2 tab(s), Oral, qDay ceFAZolin syringe 1 gram(s) 10 mL, IV Push (INT), PREOP pharm cholecalciferol 125 mcg capsule (Vit D3 5000 unit(s)) 125 mcg 1 cap(s), Oral, qDay docusate sodium 100 mg Capsule 100 mg 1 cap(s), Oral, BID insulin glargine 15 unit(s) 0.15 mL, Subcutaneous (INT), acBreakfast insulin lispro 100 units/mL Soln (3 mL) 5 unit(s) 0.05 mL, Subcutaneous, with breakfast insulin lispro 100 units/mL Soln (3 mL) 5 unit(s) 0.05 mL, Subcutaneous, with lunch insulin lispro 100 units/mL Soln (3 mL) 5 unit(s) 0.05 mL, Subcutaneous, with supper insulin lispro 100 units/mL Soln (3 mL) Give 0-10 units/dose, Subcutaneous, TIDAC losartan 25 mg tablet 25 mg 1 tab(s), Oral, qDay metoprolol succinate 25 mg ER tablet 25 mg 1 tab(s), Oral, BID miconazole topical 2% Powder 1 krishna, Topical, BID mirtazapine 15 mg tablet 30 mg 2 tab(s), Oral, qHS polyethylene glycol 3350 - UD packet 17 gram(s) 15 mL, Oral, qDay senna 8.6 mg Tablet 8.6 mg 1 tab(s), Oral, BID Continuous: (2) heparin 25,000 unit(s) [1000 unit(s)/hr] + Dextrose 5% Premix Diluent 250 mL 250 mL, Intravenous, 10 mL/hr NS (0.9% nacl) 1,000 mL 1,000 mL, Intravenous, 20 mL/hr PRN: (14) acetaminophen 325 mg Tablet 650 mg 2 tab(s), Oral, q4h dextrose 50% Solution Disp syringe 50 mL 12.5 gram(s) 25 mL, IV Push, AsDirected heparin 5,000 units/mL (1 mL) vial 4,000 unit(s) 0.8 mL, IV Push, q6h loratadine 10 mg Tablet 10 mg 1 tab(s), Oral, BID magnesium sulfate 4 gram(s)/100mL PMX 4 g 100 mL, IV Piggyback, AsDirected magnesium sulfate 50% (500mg/mL) 6 g 12 mL, IV Piggyback, AsDirected magnesium sulfate PMX 2 g 50 mL, IV Piggyback, AsDirected nitroglycerin 0.4 mg Tablet (25/btl) 0.4 mg 1 tab(s), Sublingual, q5min ondansetron 4 mg tablet 4 mg 1 tab(s), Oral, q6h polyethylene glycol 3350 - UD packet 17 gram(s) 15 mL, Oral, BID potassium chloride (PMX) 20 mEq/100 mL 20 mEq 100 mL, IV Piggyback, AsDirected potassium chloride 20 mEq ER tablet 20 mEq 1 tab(s), Oral, AsDirected potassium chloride 20 mEq ER tablet 40 mEq 2 tab(s), Oral, AsDirected potassium chloride 20 mEq ER tablet 40 mEq 2 tab(s), Oral, AsDirected Lab Results 04/15 04:16 WBC: 6.3 Hgb: 14.1 Hct: 41.6 Platelet: 165 Neutrophil %: 62.1 Glucose Level: 174 H Sodium Level: 139 Potassium Level: 4.0 BUN: 23.0 H Creatinine Lvl (s): 1.38 H 04/14 04:32 WBC: 4.4 L Hgb: 14.2 Hct: 42.8 Platelet: 168 Neutrophil %: 63.5 Glucose Level: 208 H Sodium Level: 139 Potassium Level: 4.1 BUN: 22.0 Creatinine Lvl (s): 1.48 H EKG No qualifying data available. 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 Patient is in sinus rhythm now. - Continue anticoagulation and antiplatelet. - Continue amiodarone and metoprolol. She may be a good candidate for hybrid maze in the future, given she is subtherapeutic INR frequently, and they can place JOSE clip and she would have a better chance of maintaining sinus rhythm long-term. Continue electrolyte repletion with target magnesium 2 and potassium 4. 2. CHF -Echocardiogram showed further reduction in EF down to 30-35% with low LVOT VTI. Patient got RCA stent today, pending final report. Continue diuretic as per general cardiology 3. DDD-PPM present. V pacing 60%. Normal device function. - Patient has high RV pacing and further reduction of her EF. Patient qualifies for CRTD upgrade if no improvement in EF after 3 months. 4. Comorbid conditions as above Digitally Signed by GEORGE BA MD on 04/15/2023 01:40 PM [facility] 04-15-2023 Nurse Progress note ACNS documentation has been reviewed and all medications were verified prior to administration. Digitally Signed by Berta Berrios Capacity Planning Manager on 04/15/2023 12:11 PM [facility] 04-15-2023 Cardiology Progress note Date of Service 04/15/2023 Subjective Patient examined at bedside. Patient is alert oriented x 3. Denies any complaints. Background: 72-year-old female with past medical history of hypertension, hyperlipidemia, recurrent atrial fibrillation on warfarin and sotalol, sick sinus syndrome status post Medtronic dual-chamber permanent pacemaker, type 2 diabetes, diabetic peripheral neuropathy, and memory impairment presented to the emergency department at [facility] due to complaints of shortness of breath, abdominal pain, lower extremity pain, and weight gain. Patient states she has been having the symptoms ongoing for couple of months and have been getting progressively worse. Patient states that when her son and daughter checked on her they brought her in to the hospital to be examined. Initial lab work showed elevated troponin to around 1400. Initial chest x-ray showed vascular congestion. Initial EKG showed new onset atrial flutter. Initial CT PE was negative for PE but showed vascular congestion. Initial CT abdomen pelvis was within normal limit but did show large stool burden. Patient was given aspirin and metoprolol and transferred to [facility] for further evaluation. Patient is admitted under the cardiology service for new onset heart failure with preserved ejection fraction, atrial flutter with RVR, and troponin elevated. [04/15/2023]: 832 ml since admission. s/p DCCV yesterday converting to sinus rhythm. START amiodarone po from today as per EP. For cardiac cath today. [04/14/2023]: 632 mL since admission. SUSPEND furosemide because of increasing creatinine. [04/13/2023]: +1.57 L since admission. With IV furosemide 60 mg twice daily, creatinine went slightly up. Will REDUCE to 20 mg IV twice daily. Trial of VICTOR MANUEL failed as the probe could not be passed. Ordered esophagogram. For VICTOR MANUEL with anesthesia tomorrow morning. Cath today for NSTEMI. [04/12/2023]: Still in A-fib, rate controlled. CONTINUE IV amiodarone; for VICTOR MANUEL plus cardioversion tomorrow. Patient is a good candidate for hybrid maze procedure as per EP. [04/11/2023]: Patient admitted from custodial because of new onset a flutter. EP consult placed; and recommended to DISCONTINUE sotalol and START amiodarone drip. Objective Vitals and Measurements T: 36.6 C (Oral) TMIN: 35.8 C (Temporal Artery) TMAX: 36.6 C (Oral) HR: 70(Apical) HR: 72(Monitored) RR: 19 BP: 150/90 SpO2: 97% Intake and Output 7AM Yesterday to 7AM Today Intake and Output (Last 24 hours) Intake Administration Information 300.00 Oral Intake 290.00 Output Urine Voided 750.00 Stool Count 0.00 Total Summary Total Intake 590.00 Total Output 750.00 Fluid Balance -160.00 Physical Exam General: AAOX3, NAD HEENT: Anicteric sclera, MMM Neck: Trachea midline, no JVD appreciated CVS: RRR, normal S1/S2, no murmurs/rubs/gallops Lung: CTAB, no wheezes/rhonchi/rales Abd: Soft, NT/ND Extrem: WWP, no LE edema Skin: Warm, Intact Neuro: AAOX3, spontaneous movement of all extremities Psych: Appropriate mood & affect Weight Dosing Weight: 100.4 kg (04/10/23) Medications Medications (34) Active Scheduled: (18) amiodarone 200 mg tablet 400 mg 2 tab(s), Oral, BIDM aspirin 81 mg EC 81 mg 1 tab(s), Oral, qDayM atorvastatin 40 mg tablet 40 mg 1 tab(s), Oral, qDay bisacodyl 5 mg EC tablet 10 mg 2 tab(s), Oral, qDay ceFAZolin syringe 1 gram(s) 10 mL, IV Push (INT), PREOP pharm cholecalciferol 125 mcg capsule (Vit D3 5000 unit(s)) 125 mcg 1 cap(s), Oral, qDay docusate sodium 100 mg Capsule 100 mg 1 cap(s), Oral, BID insulin glargine 15 unit(s) 0.15 mL, Subcutaneous (INT), acBreakfast insulin lispro 100 units/mL Soln (3 mL) 5 unit(s) 0.05 mL, Subcutaneous, with breakfast insulin lispro 100 units/mL Soln (3 mL) 5 unit(s) 0.05 mL, Subcutaneous, with lunch insulin lispro 100 units/mL Soln (3 mL) 5 unit(s) 0.05 mL, Subcutaneous, with supper insulin lispro 100 units/mL Soln (3 mL) Give 0-10 units/dose, Subcutaneous, TIDAC losartan 25 mg tablet 25 mg 1 tab(s), Oral, qDay metoprolol succinate 25 mg ER tablet 25 mg 1 tab(s), Oral, BID miconazole topical 2% Powder 1 krishna, Topical, BID mirtazapine 15 mg tablet 30 mg 2 tab(s), Oral, qHS polyethylene glycol 3350 - UD packet 17 gram(s) 15 mL, Oral, qDay senna 8.6 mg Tablet 8.6 mg 1 tab(s), Oral, BID Continuous: (2) heparin 25,000 unit(s) [1000 unit(s)/hr] + Dextrose 5% Premix Diluent 250 mL 250 mL, Intravenous, 10 mL/hr NS (0.9% nacl) 1,000 mL 1,000 mL, Intravenous, 20 mL/hr PRN: (14) acetaminophen 325 mg Tablet 650 mg 2 tab(s), Oral, q4h dextrose 50% Solution Disp syringe 50 mL 12.5 gram(s) 25 mL, IV Push, AsDirected heparin 5,000 units/mL (1 mL) vial 4,000 unit(s) 0.8 mL, IV Push, q6h loratadine 10 mg Tablet 10 mg 1 tab(s), Oral, BID magnesium sulfate 4 gram(s)/100mL PMX 4 g 100 mL, IV Piggyback, AsDirected magnesium sulfate 50% (500mg/mL) 6 g 12 mL, IV Piggyback, AsDirected magnesium sulfate PMX 2 g 50 mL, IV Piggyback, AsDirected nitroglycerin 0.4 mg Tablet (25/btl) 0.4 mg 1 tab(s), Sublingual, q5min ondansetron 4 mg tablet 4 mg 1 tab(s), Oral, q6h polyethylene glycol 3350 - UD packet 17 gram(s) 15 mL, Oral, BID potassium chloride (PMX) 20 mEq/100 mL 20 mEq 100 mL, IV Piggyback, AsDirected potassium chloride 20 mEq ER tablet 20 mEq 1 tab(s), Oral, AsDirected potassium chloride 20 mEq ER tablet 40 mEq 2 tab(s), Oral, AsDirected potassium chloride 20 mEq ER tablet 40 mEq 2 tab(s), Oral, AsDirected Lab Results 04/15 04:16 WBC: 6.3 Hgb: 14.1 Hct: 41.6 Platelet: 165 Neutrophil %: 62.1 Glucose Level: 174 H Sodium Level: 139 Potassium Level: 4.0 BUN: 23.0 H Creatinine Lvl (s): 1.38 H 04/14 04:32 WBC: 4.4 L Hgb: 14.2 Hct: 42.8 Platelet: 168 Neutrophil %: 63.5 Glucose Level: 208 H Sodium Level: 139 Potassium Level: 4.1 BUN: 22.0 Creatinine Lvl (s): 1.48 H EKG No qualifying data available. Assessment/Plan 1. Longstanding persistent atrial fibrillation Patient presented with shortness of breath [facility] and was transferred because of elevated troponins Found to be in A-fib with RVR s/p DCCV on 04/14/2023 Plan DISCONTINEU amiodarone IV protocol START amiodarone 400 mg po BiD from today CONTINUE metoprolol tartrate 25 mg p.o. daily CONTINUE heparin drip 2. Acute HFrEF exacerbation Patient presented with worsening shortness of breath at [facility] proBNP on admission 5.3K Grade I edema JVP: Elevated Plan Fluid restriction to 1500 mill per day Salt restricted diet Daily weight monitoring Accurate input and output CONTINUE metoprolol succinate 25 mg p.o. BiD HOLDING Jardiance 10 mg p.o. daily CONTINUE losartan 25 mg p.o. daily 3. NSTEMI Patient presented to [facility] because of shortness of breath and weight gain Troponins at [facility] 1400 Troponins here trended up to 4000 range EF appears to be visually reduced on echo done today formal report pending Plan CONTINUE heparin drip IV CONTINUE aspirin 81 mg p.o. daily CONTINUE atorvastatin 40 mg p.o. daily For [facility] today 4. DM2 FINGERSTICK IN ACCEPTABLE RANGE Plan Continue sliding scale insulin CONTINUE scheduled lispro insulin 5. Hypertension Blood pressure in acceptable range Plan CONTINUE losartan 25 mg p.o. daily Continue metoprolol succinate 25 mg p.o. daily 6. Hyperlipidemia Plan CONTINUE atorvastatin 40 mg p.o. daily 7. Concern for dementia Hospitalist on board [1] Progress Note; RENAE AYALA MD 04/14/2023 11:26 EST Digitally Signed by RENAE AYALA MD on 04/15/2023 10:41 AM Digitally Signed by RENAE AYALA MD on 04/15/2023 12:01 PM Digitally Signed by JANICE MORROW MD [facility] 04-15-2023 Note Date of Service 04/14/2023 Subjective 72-year-old with longstanding persistent atrial fibrillation, sinus bradycardia s/p DDD-PPM on 03/18/2021 ([employer]tronic), high ventricular pacing 60%, CHF, chronic venous stasis, subtherapeutic INR, HTN, HLP, GERD, diabetes, dizziness, bipolar, and other problems who EP is now consulted for atrial fibrillation management in setting of CHF. Patient has had couple months of swelling, fluid retention, dyspnea. She states her PCP was try to manage this, but ultimately she did not get better, and is now hospitalized. Her INR is 1.3. She was on sotalol at home, which is now discontinued. Patient underwent VICTOR MANUEL and could not completed yesterday because of anxiety. Left heart catheterization is also pending. She could not sleep very well overnight and feeling very tired. However she denied active chest pain, palpitation and orthopnea. Echocardiogram 04/12/2023 (EF - 60% in September 2022) EF 30-35%, LVOT VTI 11.2 Diastolic dysfunction is present Moderately increased IVS thickness with paradoxical septal motion Aortic valve area 0.5, disproportionate to visual aortic valve opening. Needs further study Objective Vitals and Measurements T: 36.4 C (Oral) TMIN: 36.4 C (Oral) TMAX: 36.6 C (Oral) HR: 72(Apical) RR: 18 BP: 162/75 SpO2: 96% Intake and Output 7AM Yesterday to 7AM Today Intake and Output (Last 24 hours) Intake Output Urinary Catheter Output: 600.00 Total Summary Total Intake 0.00 Total Output 600.00 Fluid Balance -600.00 Physical Exam General Appearance: Patient comfortably lying on bed, not in acute distress Head: Normocephalic, atraumatic EENT: PERRLA, Neck: Supple, no JVD, no mass Cardiac: s1s2,RRR, no murmurs or rubs or gallops Lungs: Clear to auscultation bilaterally, no wheeze or rhonchi or crackles Abdomen: Soft , Nontender, no organomegaly, bowel sounds heard Musculoskeletal: Full ROM , no gross deformities Extremities: No rash or ulcers or pedal edema Neurological: Alert, oriented x 3, grossly no focal neurological deficits Skin: No rash or ulcers Weight Dosing Weight: 100.4 kg (04/10/23) Medications Medications (32) Active Scheduled: (17) amiodarone 200 mg tablet 400 mg 2 tab(s), Oral, BIDM aspirin 81 mg EC 81 mg 1 tab(s), Oral, qDayM atorvastatin 40 mg tablet 40 mg 1 tab(s), Oral, qDay bisacodyl 5 mg EC tablet 10 mg 2 tab(s), Oral, qDay cholecalciferol 125 mcg capsule (Vit D3 5000 unit(s)) 125 mcg 1 cap(s), Oral, qDay docusate sodium 100 mg Capsule 100 mg 1 cap(s), Oral, BID insulin glargine 15 unit(s) 0.15 mL, Subcutaneous (INT), acBreakfast insulin lispro 100 units/mL Soln (3 mL) 5 unit(s) 0.05 mL, Subcutaneous, with breakfast insulin lispro 100 units/mL Soln (3 mL) 5 unit(s) 0.05 mL, Subcutaneous, with lunch insulin lispro 100 units/mL Soln (3 mL) 5 unit(s) 0.05 mL, Subcutaneous, with supper insulin lispro 100 units/mL Soln (3 mL) Give 0-10 units/dose, Subcutaneous, TIDAC losartan 25 mg tablet 25 mg 1 tab(s), Oral, qDay metoprolol succinate 25 mg ER tablet 25 mg 1 tab(s), Oral, BID miconazole topical 2% Powder 1 krishna, Topical, BID mirtazapine 15 mg tablet 30 mg 2 tab(s), Oral, qHS polyethylene glycol 3350 - UD packet 17 gram(s) 15 mL, Oral, qDay senna 8.6 mg Tablet 8.6 mg 1 tab(s), Oral, BID Continuous: (1) heparin 25,000 unit(s) [1000 unit(s)/hr] + Dextrose 5% Premix Diluent 250 mL 250 mL, Intravenous, 10 mL/hr PRN: (14) acetaminophen 325 mg Tablet 650 mg 2 tab(s), Oral, q4h dextrose 50% Solution Disp syringe 50 mL 12.5 gram(s) 25 mL, IV Push, AsDirected heparin 5,000 units/mL (1 mL) vial 4,000 unit(s) 0.8 mL, IV Push, q6h loratadine 10 mg Tablet 10 mg 1 tab(s), Oral, BID magnesium sulfate 4 gram(s)/100mL PMX 4 g 100 mL, IV Piggyback, AsDirected magnesium sulfate 50% (500mg/mL) 6 g 12 mL, IV Piggyback, AsDirected magnesium sulfate PMX 2 g 50 mL, IV Piggyback, AsDirected nitroglycerin 0.4 mg Tablet (25/btl) 0.4 mg 1 tab(s), Sublingual, q5min ondansetron 4 mg tablet 4 mg 1 tab(s), Oral, q6h polyethylene glycol 3350 - UD packet 17 gram(s) 15 mL, Oral, BID potassium chloride (PMX) 20 mEq/100 mL 20 mEq 100 mL, IV Piggyback, AsDirected potassium chloride 20 mEq ER tablet 20 mEq 1 tab(s), Oral, AsDirected potassium chloride 20 mEq ER tablet 40 mEq 2 tab(s), Oral, AsDirected potassium chloride 20 mEq ER tablet 40 mEq 2 tab(s), Oral, AsDirected Lab Results 04/14 04:32 WBC: 4.4 L Hgb: 14.2 Hct: 42.8 Platelet: 168 Neutrophil %: 63.5 Glucose Level: 208 H Sodium Level: 139 Potassium Level: 4.1 BUN: 22.0 Creatinine Lvl (s): 1.48 H 04/13 04:28 WBC: 5.3 Hgb: 14.4 Hct: 43.3 Platelet: 182 Neutrophil %: 61.7 Glucose Level: 147 H Sodium Level: 140 Potassium Level: 4.4 BUN: 21.0 Creatinine Lvl (s): 1.32 H EKG No qualifying data available. Assessment/Plan Orders: amiodarone, Start: 04/14/23 8:47:00 EST, Dose = 400 mg, = 2 tab(s), Oral, BIDM, 0, 04/14/23 8:47:00 EST metoprolol, Start: 04/14/23 17:00:00 EST, Dose = 25 mg, = 1 tab(s), Oral, BID, give with food, 0, 04/14/23 8:48:00 EST Longstanding persistent atrial fibrillation Sick sinus syndrome status post Medtronic dual-chamber pacemaker placement Acute exacerbation of CHF Heart failure with preserved ejection fraction Type II OR Hypertension Hyperlipidemia Type 2 diabetes mellitus Review of the telemetry revealed slow coarse atrial fibrillaiton/flutter. Heart rate is now under control at 72/min. Blood pressure is 140/68. Continue anticoagulation with IV HBW and switch to oral Eliquis after LHC or as recommended by the primary team VICTOR MANUEL and DCCV today. Patient has received 2.8 g of amiodarone so far. Will switch IV amiodarone to p.o. 400 mg twice daily for 10 more days and then 200 mg daily. Will increase p.o. metoprolol succinate to 25 mg twice daily. She may be a good candidate for hybrid maze in the future, given she is subtherapeutic INR frequently, and they can place JOSE clip and she would have a better chance of maintaining sinus rhythm long-term. Continue electrolyte repletion with target magnesium 2 and potassium 4. 2. CHF -Echocardiogram showed further reduction in EF down to 30-35% with low LVOT VTI. Patient will get left heart catheterization today. Continue diuretic as per general cardiology 3. DDD-PPM present. V pacing 60%. Normal device function. - Patient has high RV pacing and further reduction of her EF. Patient qualifies for CRTD upgrade. 4. Comorbid conditions as above Digitally Signed by GEORGE BA MD on 04/14/2023 05:34 PM [facility] 04-14-2023 Nurse Progress note Documentation by [employer] professional nursing assistant has been reviewed. Digitally Signed by Berta Berrios Capacity Planning Manager on 04/14/2023 05:29 PM [facility] 04-14-2023 Note Date of Service CARDIOVERSION PROCEDURE NOTE: Electrical Cardioversion Performed by: Augusto Washington MD Indication: Atrial Fibrillation [place] Protocol: a time out was performed and the correct patient and procedure were verified Consent: Written consent obtained Patient was placed on continuous cardiac monitoring and continuous pulse oximetry. Supplemental oxygen was administered via nasal cannula. Electrodes were placed in an anterior/posterior fashion. After appropriate level of sedation was achieved (please see separate sedation procedure note), synchronized cardioversion was performed at 150 joules with successful conversion to sinus rhythm. Complications: None, patient tolerated the procedure well Assessment and plan was discussed with Dr. Putnam. Any changes in assessment/plan, will be added as an addendum to this note by the attending physician. This note was transcribed via voice recognition software. Please, forgive any errors or typos, resulting from the use of this technology. Digitally Signed by AUGUSTO WASHINGTON MD on 04/14/2023 02:12 PM [facility] 04-14-2023 Note Date of Service CARDIOVERSION PROCEDURE NOTE: Electrical Cardioversion Performed by: Augusto Washington MD Indication: Atrial Fibrillation [place] Protocol: a time out was performed and the correct patient and procedure were verified Consent: Written consent obtained Patient was placed on continuous cardiac monitoring and continuous pulse oximetry. Supplemental oxygen was administered via nasal cannula. Electrodes were placed in an anterior/posterior fashion. After appropriate level of sedation was achieved (please see separate sedation procedure note), synchronized cardioversion was performed at 150 joules with successful conversion to sinus rhythm. Complications: None, patient tolerated the procedure well Assessment and plan was discussed with Dr. Putnam. Any changes in assessment/plan, will be added as an addendum to this note by the attending physician. This note was transcribed via voice recognition software. Please, forgive any errors or typos, resulting from the use of this technology. Digitally Signed by AUGUSTO WASHINGTON MD on 04/14/2023 02:12 PM [facility] 04-14-2023 Note Exam Date Time Procedure Performing Provider Status 04/14/23 11:56 AM Transesophageal Echo cardiogram - CV Auth (Verified) [facility] 01-25-2024 Note Date of Service 04/14/2023 Subjective 72-year-old with longstanding persistent atrial fibrillation, sinus bradycardia s/p DDD-PPM on 03/18/2021 (Medtronic), high ventricular pacing 60%, CHF, chronic venous stasis, subtherapeutic INR, HTN, HLP, GERD, diabetes, dizziness, bipolar, and other problems who EP is now consulted for atrial fibrillation management in setting of CHF. Patient has had couple months of swelling, fluid retention, d yspnea. She states her PCP was try to manage this, but ultimately she did not get better, and is now hospitalized. Her INR is 1.3. She was on sotalol at home, which is now discontinued. Patient underwent VICTOR MANUEL and could not completed yesterday because of anxiety. Left heart catheterization is also pending. She could not sleep very well overnight and feeling very tired. However she denied active chest pain, palpitation and orthopnea. Echocardiogram 04/12/2023 (EF - 60% in September 2022) EF 30-35%, LVOT VTI 11.2 Diastolic dysfunction is present Moderately increased IVS thickness with paradoxical septal motion Aortic valve area 0.5, disproportionate to visual aortic valve opening. Needs further study Objective Vitals and Measurements T: 36.4 C (Oral) TMIN: 36.4 C (Oral) TMAX: 36.6 C (Oral) HR: 72(Apical) RR: 18 BP: 162/75 SpO2: 96% Intake and Output 7AM Yesterday to 7AM Today Intake and Output (Last 24 hours) Intake Output Urinary Catheter Output: 600.00 Total Summary Total Intake 0.00 Total Output 600.00 Fluid Balance -600.00 Physical Exam General Appearance: Patient comfortably lying on bed, not in acute distress Head: Normocephalic, atraumatic EENT: PERRLA, Neck: Supple, no JVD, no mass Cardiac: s1s2,RRR, no murmurs or rubs or gallops Lungs: Clear to auscultation bilaterally, no wheeze or rhonchi or crackles Abdomen: Soft , Nontender, no organomegaly, bowel sounds heard Musculoskeletal: Full ROM , no gross deformities Extremities: No rash or ulcers or pedal edema Neurological: Alert, oriented x 3, grossly no focal neurological deficits Skin: No rash or ulcers Weight Dosing Weight: 100.4 kg (04/10/23) Medications Medications (32) Active Scheduled: (17) amiodarone 200 mg tablet 400 mg 2 tab(s), Oral, BIDM aspirin 81 mg EC 81 mg 1 tab(s), Oral, qDayM atorvastatin 40 mg tablet 40 mg 1 tab(s), Oral, qDay bisacodyl 5 mg EC tablet 10 mg 2 tab(s), Oral, qDay cholecalciferol 125 mcg capsule (Vit D3 5000 unit(s)) 125 mcg 1 cap(s), Oral, qDay docusate sodium 100 mg Capsule 100 mg 1 cap(s), Oral, BID insulin glargine 15 unit(s) 0.15 mL, Subcutaneous (INT), acBreakfast insulin lispro 100 units/mL Soln (3 mL) 5 unit(s) 0.05 mL, Subcutaneous, with breakfast insulin lispro 100 units/mL Soln (3 mL) 5 unit(s) 0.05 mL, Subcutaneous, with lunch insulin lispro 100 units/mL Soln (3 mL) 5 unit(s) 0.05 mL, Subcutaneous, with supper insulin lispro 100 units/mL Soln (3 mL) Give 0-10 units/dose, Subcutaneous, TIDAC losartan 25 mg tablet 25 mg 1 tab(s), Oral, qDay metoprolol succinate 25 mg ER tablet 25 mg 1 tab(s), Oral, BID miconazole topical 2% Powder 1 krishna, Topical, BID mirtazapine 15 mg tablet 30 mg 2 tab(s), Oral, qHS polyethylene glycol 3350 - UD packet 17 gram(s) 15 mL, Oral, qDay senna 8.6 mg Tablet 8.6 mg 1 tab(s), Oral, BID Continuous: (1) heparin 25,000 unit(s) [1000 unit(s)/hr] + Dextrose 5% Premix Diluent 250 mL 250 mL, Intravenous, 10 mL/hr PRN: (14) acetaminophen 325 mg Tablet 650 mg 2 tab(s), Oral, q4h dextrose 50% Solution Disp syringe 50 mL 12.5 gram(s) 25 mL, IV Push, AsDirected heparin 5,000 units/mL (1 mL) vial 4,000 unit(s) 0.8 mL, IV Push, q6h loratadine 10 mg Tablet 10 mg 1 tab(s), Oral, BID magnesium sulfate 4 gram(s)/100mL PMX 4 g 100 mL, IV Piggyback, AsDirected magnesium sulfate 50% (500mg/mL) 6 g 12 mL, IV Piggyback, AsDirected magnesium sulfate PMX 2 g 50 mL, IV Piggyback, AsDirected nitroglycerin 0.4 mg Tablet (25/btl) 0.4 mg 1 tab(s), Sublingual, q5min ondansetron 4 mg tablet 4 mg 1 tab(s), Oral, q6h polyethylene glycol 3350 - UD packet 17 gram(s) 15 mL, Oral, BID potassium chloride (PMX) 20 mEq/100 mL 20 mEq 100 mL, IV Piggyback, AsDirected potassium chloride 20 mEq ER tablet 20 mEq 1 tab(s), Oral, AsDirected potassium chloride 20 mEq ER tablet 40 mEq 2 tab(s), Oral, AsDirected potassium chloride 20 mEq ER tablet 40 mEq 2 tab(s), Oral, AsDirected Lab Results 04/14 04:32 WBC: 4.4 L Hgb: 14.2 Hct: 42.8 Platelet: 168 Neutrophil %: 63.5 Glucose Level: 208 H Sodium Level: 139 Potassium Level: 4.1 BUN: 22.0 Creatinine Lvl (s): 1.48 H 04/13 04:28 WBC: 5.3 Hgb: 14.4 Hct: 43.3 Platelet: 182 Neutrophil %: 61.7 Glucose Level: 147 H Sodium Level: 140 Potassium Level: 4.4 BUN: 21.0 Creatinine Lvl (s): 1.32 H EKG No qualifying data available. Assessment/Plan Orders: amiodarone, Start: 04/14/23 8:47:00 EST, Dose = 400 mg, = 2 tab(s), Oral, BIDM, 0, 04/14/23 8:47:00EST metoprolol, Start: 04/14/23 17:00:00 EST, Dose = 25 mg, = 1 tab(s), Oral, BID, give with food, 0, 04/14/23 8:48:00 EST Longstanding persistent atrial fibrillation Sick sinus syndrome status post Medtronic dual-chamber pacemaker placement Acute exacerbation of CHF Heart failure with preserved ejection fraction Type II OR Hypertension Hyperlipidemia Type 2 diabetes mellitus Review of the telemetry revealed slow coarse atrial fibrillaiton/flutter. Heart rate is now under control at 72/min. Blood pressure is 140/68. Continue anticoagulation with IV HBW and switch to oral Eliquis after C or as recommended by the primary team VICTOR MANUEL and DCCV today. Patient has received 2.8 g of amiodarone so far. Will switch IV amiodarone to p.o. 400 mg twice daily for 10 more days and then 200 mg daily. Will increase p.o. metoprolol succinate to 25 mg twice daily. She may be a good candidate for hybrid maze in the future, given she is subtherapeutic INR frequently, and they can place JOSE clip and she would have a better chance of maintaining sinus rhythm long-term. Continue electrolyte repletion with target magnesium 2 and potassium 4. 2. CHF -Echocardiogram showed further reduction in EF down to 30-35% with low LVOT VTI. Patient will get left heart catheterization today. Continue diuretic as per general cardiology 3. DDD-PPM present. V pacing 60%. Normal device function. - Patient has high RV pacing and further reduction of her EF. Patient qualifies for CRTD upgrade. 4. Comorbid conditions as above Digitally Signed by GEORGE BA MD on 04/14/2023 05:34 PM [id number] Consult note Patient: JOHN PAUL RODRIGUEZ Age: 72 years Sex: Female : 1950 Associated Diagnoses: None Author: BEV TONY DO Preoperative Information Greater than 6 hours Anesthesia history Patient's history: negative. Family's history: negative. Review of Systems Ear/Nose/Mouth/Throat: Negative except as documented in history of present illness. Respiratory: Negative except as documented in history of present illness. Cardiovascular: Negative except as documented in history of present illness. Gastrointestinal: Negative except as documented in history of present illness. Genitourinary: Negative except as documented in history of present illness. Endocrine: Negative except as documented in history of present illness. Musculoskeletal: Negative except as documented in history of present illness. Integumentary: Negative except as documented in history of present illness. Neurologic: Negative except as documented in history of present illness. Health Status Allergies: Allergic Reactions (Selected) Severity Not Documented Biaxin- Gi upset. Bystolic- Irregular heart beat. Cardizem- Dizziness. Cipro- No reactions were documented. Glucaphage- No reactions were documented. Penicillin- No reactions were documented. Tenormin- Bradycardia. Vancomycin- No reactions were documented. Zebeta- Unknown., Allergies (9) ActiveReaction biaxinGI upset BystolicIrregular heart beat CardizemDizziness ciproNone Documented glucaphageNone Documented penicillinNone Documented TenorminBradycardia vancomycinNone Documented ZebetaUnknown Current medications: (Selected) Inpatient Medications Ordered Amiodarone for IV 450 mg [1 mg/min] + NS 250 mL: Start: 04/11/23 12:55:00 EST, Rate: 33.33 mL/hr, 04/11/23 12:55:00 EST Colace: Start: 04/12/23 20:00:00 EST, Dose = 100 mg, = 1 cap(s), Oral, BID, 04/12/23 16:55:00 EST Dextrose 50% IV Push: Start: 04/10/23 20:59:00 EST, Dose = 12.5 gram(s), = 25 mL, IV Push, AsDirected, PRN, Hypoglycemia, 04/10/23 20:59:00 EST Dulcolax Laxative: Start: 04/11/23 11:43:00 EST, Dose = 10 mg, = 2 tab(s), Oral, qDay, 0, 04/11/23 11:42:00 EST Ecotrin: Start: 04/10/23 20:59:00 EST, Dose = 81 mg, = 1 tab(s), Oral, qDayM, take with food or full glass of water, 04/10/23 20:59:00 EST Heparin HBW CARDIAC Bolus 5000 units/mL: Start: 04/10/23 20:59:00 EST, Dose = 4,000 unit(s), = 0.8 mL, IV Push, q6h, PRN, Protocol, Weight Based Heparin, 0, 04/10/23 20:59:00 EST Heparin for IV 25,000 unit(s) [1000 unit(s)/hr] + Dextrose 5% Premix Diluent 250 mL: Start: 04/10/23 20:59:00 EST, Rate: 10 mL/hr, 04/10/23 20:59:00 EST HumaLOG 100 units/mL subcutaneous solution: Start: 04/10/23 21:38:00 EST, Dose = 5 unit(s), = 0.05 mL, Subcutaneous, with supper, 04/10/23 21:38:00 EST HumaLOG 100 units/mL subcutaneous solution: Start: 04/11/23 12:00:00 EST, Dose = 5 unit(s), = 0.05 mL, Subcutaneous, with lunch, 04/10/23 21:38:00 EST HumaLOG 100 units/mL subcutaneous solution: Start: 04/11/23 8:00:00 EST, Dose = 5 unit(s), = 0.05 mL, Subcutaneous, with breakfast, 04/10/23 21:38:00 EST HumaLOG 100 units/mL subcutaneous solution: Start: 04/11/23 8:00:00 EST, Give 0- 10 units/dose, Subcutaneous, TIDAC, 04/10/23 21:38:00 EST Lantus: Start: 04/11/23 7:30:00 EST, Dose = 15 unit(s), = 0.15 mL, Subcutaneous (INT), acBreakfast,Rate: 0 mL/hr, Infuse over: 0 minute(s), 0 Lipitor: Start: 04/10/23 22:00:00 EST, Dose = 40 mg, = 1 tab(s), Oral, qDay, 04/10/23 20:59:00 EST Miralax Powder Packet: Start: 04/10/23 21:18:00 EST, Dose = 17 gram(s), = 15 mL, Oral, BID, PRN, Constipation, 04/10/23 21:18:00 EST Miralax Powder Packet: Start: 04/11/23 11:44:00 EST, Dose = 17 gram(s), = 15 mL, Oral, qDay, 0, 04/11/23 11:42:00 EST Vitamin D3 125 mcg (5000 intl units) oral capsule: Start: 04/11/23 9:00:00 EST, Dose = 125 mcg, = 1cap(s), Oral, qDay, 0, 04/10/23 21:17:00 EST acetaminophen: Start: 04/10/23 21:17:00 EST, Dose = 650 mg, = 2 tab(s), Oral, q4h, PRN, as needed for pain, 04/10/23 21:17:00 EST furosemide: Start: 04/13/23 16:00:00 EST, Dose = 20 mg, = 2 mL, IV Push, BID, 04/13/23 12:26:00 EST loratadine: Start: 04/10/23 21:17:00 EST, Dose = 10 mg, = 1 tab(s), Oral, BID, PRN, Itching, 04/10/23 21:17:00 EST losartan: Start: 04/10/23 21:17:00 EST, Dose = 25 mg, = 1 tab(s), Oral, qDay, 04/10/23 21:17:00 EST magnesium sulfate for IV bolus: Start: 04/10/23 20:59:00 EST, 2 g, Dose = 50 mL, Soln, IV Piggyback, AsDirected, PRN, for Mg level 1.5-1.8 mg/dl, Rate: 25 mL/hr, Infuse over: 2 hour(s), 0, 04/10/23 20:59:00 EST magnesium sulfate for IV bolus: Start: 04/10/23 20:59:00 EST, 4 g, Dose = 100 mL, Soln, IV Piggyback, AsDirected, PRN, for Mg level 1.1-1.4 mg/dl, Rate: 25 mL/hr, Infuse over: 4 hour(s), 0, 04/10/23 20:59:00 EST magnesium sulfate for IV bolus: Start: 04/10/23 20:59:00 EST, 6 g, Dose = 12 mL, Soln, IV Piggyback, AsDirected, PRN, for Mg level 1 mg/dl or less, Rate: 41.67 mL/hr, Infuse over: 6 hour(s), 0, 04/10/23 20:59:00 EST metoprolol succinate 25 mg oral TABLET extended release: Start: 04/13/23 9:00:00 EST, Dose = 25 mg,= 1 tab(s), Oral, qDayM, give with food, 04/13/23 9:00:00 EST miconazole 2% topical powder: Start: 04/10/23 21:18:00 EST, Dose = 1 krishna, Topical, BID, Apply to: affected areas, Powder, 04/10/23 21:18:00 EST mirtazapine: Start: 04/10/23 22:00:00 EST, Dose = 30 mg, = 2 tab(s), Oral, qHS, 04/10/23 21:18:00 EST nitroglycerin 0.4 mg sublingual tablet: Start: 04/11/23 0:30:00 EST, 0.4 mg, Dose = 1 tab(s), Tab, Sublingual, q5min, PRN, Chest pain, 04/11/23 0:30:00 EST ondansetron: Start: 04/12/23 16:56:00 EST, Dose = 4 mg, = 1 tab(s), Oral, q6h, PRN, Nausea/Vomiting, 04/12/23 16:56:00 EST potassium chloride bolus: Start: 04/10/23 20:59:00 EST, Dose = 20 mEq, = 100 mL, IV Piggyback, AsDirected, PRN, for K+ level 2.5 - 2.9 mEq/dL, Rate: 50 mL/hr, Infuse over: 2 hour(s), 0, 04/10/23 20:59:00 EST potassium chloride: Start: 04/10/23 20:59:00 EST, Dose = 20 mEq, = 1 tab(s), Oral, AsDirected, PRN,for K+ level 3.5 - 3.9 mEq/L, 04/10/23 20:59:00 EST potassium chloride: Start: 04/10/23 20:59:00 EST, Dose = 40 mEq, = 2 tab(s), Oral, AsDirected, PRN,for K+ level 2.5 - 2.9 mEq/dL, 04/10/23 20:59:00 EST potassium chloride: Start: 04/10/23 20:59:00 EST, Dose = 40 mEq, = 2 tab(s), Oral, AsDirected, PRN,for K+ level 3-3.4 mEq/L, 04/10/23 20:59:00 EST senna: Start: 04/12/23 20:00:00 EST, Dose = 8.6 mg, = 1 tab(s), Oral, BID, 04/12/23 16:55:00 EST Pending Complete Fluad Quadrivalent PF [id number]: Start: 04/11/23 10:00:00 EST, Dose = 0.5 mL, Susp, Intramuscular, Vaccine-day 2, 1 dose(s), Stop: 04/11/23 10:00:00 EST, MAIN, 04/11/23 2:17:00 EST Prescriptions Prescribed Lopressor 25mg--USE metoprolol tartrate 25 mg oral tablet: Dose : 25 mg = 1 tab(s), Oral, Daily, # 90 tab(s), 3 Refill(s), Pharmacy: [facility], 159.5, cm, 02/15/23 14:26:00 EST, Height, kg, 02/15/23 14:26:00 EST, Dosing Weight NovoLOG FlexPen 100 units/mL injectable solution: Dose : 5 unit(s) =, Subcutaneous, TIDAC, # 15 mL,3 Refill(s), Pharmacy: [facility], Diabetes mellitus type 2, insulin dependent, 159.5, cm, 02/24/23 15:28:00 EST, Height, kg, 02/24/23 15:28:00 EST, Dosing Weight Vitamin D3 125 mcg (5000 intl units) oral capsule: Dose : 125 mcg = 1 cap(s), Oral, qDay, # 30 cap(s), 0 Refill(s), Pharmacy: [facility], 170, cm, 10/21/22 9:08:00 EDT, Height, kg, 10/21/22 9:08:00 EDT, Dosing Weight atorvastatin 20 mg oral tablet: Dose : 20 mg = 1 tab(s), Oral, qDay, # 30 tab(s), 0 Refill(s), Pharmacy: [place] [id number], 170, cm, 10/21/22 9:08:00 EDT, Height, kg, 10/21/22 9:08:00 EDT, DosingWeight clindamycin 150 mg oral capsule: Dose : 450 mg = 3 cap(s), Oral, q8h, X 10 day(s), # 90 cap(s), 0 Refill(s), 04/16/23 14:38:00 EST, Pharmacy: [facility], 159.5, cm, 04/06/23 14:05:00 EST, Height, 99.1, kg, 04/06/23 14:05:00 EST, Dosing Weight loratadine 10 mg oral tablet: Dose : 10 mg = 1 tab(s), Oral, BID, PRN Itching, # 180 tab(s), 3 Refill(s), Pharmacy: [facility], Chronic urticaria, 160, cm, 12/27/22 8:15:00 EDT, Height, kg, 12/27/22 8:15:00 EDT, Dosing Weight losartan 25 mg oral tablet: Dose : 25 mg = 1 tab(s), Oral, qDay, # 30 tab(s), 3 Refill(s), Pharmacy: [facility], 159.5, cm, 02/24/23 15:28:00 EST, Height, kg, 02/24/23 15:28:00 EST, DosingWeight mirtazapine 30 mg oral tablet: Dose : 30 mg = 1 tab(s), Oral, qHS, Replaces previous Rx for mirtazapine 15 mg dose., # 30 tab(s), 2 Refill(s), Pharmacy: [facility], 159.5, cm, 02/24/23 15:28:00 EST, Height, kg, 02/24/23 15:28:00 EST, Dosing Weight sotalol 80 mg oral tablet: Dose : 80 mg = 1 tab(s), Oral, qHS, # 90 tab(s), 3 Refill(s), Pharmacy: [facility], 170, cm, 10/21/22 9:08:00 EDT, Height, kg, 10/21/22 9:08:00 EDT, Dosing Weight warfarin 5 mg oral tablet: Dose : 5 mg = 1 tab(s), Oral, qDay, # 30 tab(s), 1 Refill(s), Pharmacy: [facility], 159.5, cm, 01/26/23 15:26:00 EST, Height, kg, 01/26/23 15:26:00 EST, Dosing Weight Documented Medications Documented acetaminophen-hydrocodone 325 mg-7.5 mg oral tablet: Dose = 1 tab(s), Oral, q4h, PRN for pain, # 12tab(s), 0 Refill(s), 99.3 acetaminophen: Dose : 650 mg = 2 tab(s), Oral, q4h, PRN Pain, scale 1-6, 0 Refill(s) furosemide 40 mg oral tablet: Dose : 40 mg = 1 tab(s), Oral, qDay insulin glargine-yfgn 100 units/mL subcutaneous solution: 20, Subcutaneous, qDay, q andrew, 0 Refill(s) miconazole 2% topical powder: Apply 1 krishna, Topical, BID, 0 Refill(s), Powder, 99.3 ondansetron 4 mg oral tablet: Dose : 4 mg = 1 tab(s), Oral, q8h, PRN Nausea/Vomiting, # 15 tab(s), 0 Refill(s), Medications (33) Active Scheduled: (17) aspirin 81 mg EC 81 mg 1 tab(s), Oral, qDayM atorvastatin 40 mg tablet 40 mg 1 tab(s), Oral, qDay bisacodyl 5 mg EC tablet 10 mg 2 tab(s), Oral, qDay cholecalciferol 125 mcg capsule (Vit D3 5000 unit(s)) 125 mcg 1 cap(s), Oral, qDay docusate sodium 100 mg Capsule 100 mg 1 cap(s), Oral, BID furosemide 20 mg/2 mL vial 20 mg 2 mL, IV Push, BID insulin glargine 15 unit(s) 0.15 mL, Subcutaneous (INT), acBreakfast insulin lispro 100 units/mL Soln (3 mL) 5 unit(s) 0.05 mL, Subcutaneous, with breakfast insulin lispro 100 units/mL Soln (3 mL) 5 unit(s) 0.05 mL, Subcutaneous, with lunch insulin lispro 100 units/mL Soln (3 mL) 5 unit(s) 0.05 mL, Subcutaneous, with supper insulin lispro 100 units/mL Soln (3 mL) Give 0-10 units/dose, Subcutaneous, TIDAC losartan 25 mg tablet 25 mg 1 tab(s), Oral, qDay metoprolol succinate 25 mg ER tablet 25 mg 1 tab(s), Oral, qDayM miconazole topical 2% Powder 1 krishna, Topical, BID mirtazapine 15 mg tablet 30 mg 2 tab(s), Oral, qHS polyethylene glycol 3350 - UD packet 17 gram(s) 15 mL, Oral, qDay senna 8.6 mg Tablet 8.6 mg 1 tab(s), Oral, BID Continuous: (2) amiodarone 450 mg [1 mg/min] + sodium chloride FAY 250 mL 250 mL, Intravenous, 33.33 mL/hr heparin 25,000 unit(s) [1000 unit(s)/hr] + Dextrose 5% Premix Diluent 250 mL 250 mL, Intravenous, 10 mL/hr PRN: (14) acetaminophen 325 mg Tablet 650 mg 2 tab(s), Oral, q4h dextrose 50% Solution Disp syringe 50 mL 12.5 gram(s) 25 mL, IV Push, AsDirected heparin 5,000 units/mL (1 mL) vial 4,000 unit(s) 0.8 mL, IV Push, q6h loratadine 10 mg Tablet 10 mg 1 tab(s), Oral, BID magnesium sulfate 4 gram(s)/100mL PMX 4 g 100 mL, IV Piggyback, AsDirected magnesium sulfate 50% (500mg/mL) 6 g 12 mL, IV Piggyback, AsDirected magnesium sulfate PMX 2 g 50 mL, IV Piggyback, AsDirected nitroglycerin 0.4 mg Tablet (25/btl) 0.4 mg 1 tab(s), Sublingual, q5min ondansetron 4 mg tablet 4 mg 1 tab(s), Oral, q6h polyethylene glycol 3350 - UD packet 17 gram(s) 15 mL, Oral, BID potassium chloride (PMX) 20 mEq/100 mL 20 mEq 100 mL, IV Piggyback, AsDirected potassium chloride 20 mEq ER tablet 20 mEq 1 tab(s), Oral, AsDirected potassium chloride 20 mEq ER tablet 40 mEq 2 tab(s), Oral, AsDirected potassium chloride 20 mEq ER tablet 40 mEq 2 tab(s), Oral, AsDirected Problem list: Medical Mental status alteration / SNOMED CT 8618128825 / Confirmed Anxiety / SNOMED CT [id number] / Confirmed Atrial fibrillation / SNOMED CT 25259591 / Confirmed Edema of both lower extremities / SNOMED CT 1287714314 / Confirmed Osteoarthritis of knees, bilateral / SNOMED CT 5654673323 / Confirmed Bipolar disorder / SNOMED CT 39226827 / Confirmed Pacemaker / SNOMED CT 2884272388 / Confirmed Chest pain / SNOMED CT 78430766 / Confirmed Chronic lumbar pain / SNOMED CT 049517934 / Confirmed Chronic urticaria / SNOMED CT 30619676 / Confirmed Supplemental oxygen dependent / SNOMED CT 2894320665 / Confirmed Depression / SNOMED CT 83077007 / Confirmed Diabetic polyneuropathy / SNOMED CT 12755861 / Confirmed Dizziness / SNOMED CT 0357924956 / Confirmed On continuous oral anticoagulation / SNOMED CT 2376449681 / Confirmed Dyspnea / SNOMED CT 052062434 / Confirmed GERD - Gastro-esophageal reflux disease / SNOMED CT 6550308789 / Confirmed Chronic left hip pain / SNOMED CT 95040077 / Confirmed HTN (hypertension) / SNOMED CT [id number] / Confirmed Hypercholesterolemia / SNOMED CT 75703921 / Confirmed Nocturnal hypoxia / SNOMED CT 0511857730 / Confirmed Diabetes mellitus type 2, insulin dependent / SNOMED CT 2192618287 / Confirmed Long-term (current) use of anticoagulants, INR goal 2.0-3.0 / SNOMED CT 9266515918 / Confirmed MVP (mitral valve prolapse) / SNOMED CT [id number] / Confirmed Chronic nausea / SNOMED CT 0883151303 / Confirmed Organic sleep apnea / SNOMED CT 9216160700 / Confirmed SSS (sick sinus syndrome) / SNOMED CT 85168250 / Confirmed Suicide ideation / SNOMED CT 770678417 / Confirmed 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, Active Problems (29) Anxiety Atrial fibrillation Bipolar disorder Chest pain Chronic left hip pain Chronic lumbar pain Chronic nausea Chronic urticaria Depression Diabetes mellitus type 2, insulin dependent Diabetic polyneuropathy Dizziness Dyspnea Edema of both lower extremities GERD - Gastro-esophageal reflux disease HTN (hypertension) Hypercholesterolemia Long-term (current) use of anticoagulants, INR goal 2.0-3.0 Mental status alteration MVP (mitral valve prolapse) Nocturnal hypoxia On continuous oral anticoagulation Organic sleep apnea Osteoarthritis of knees, bilateral Pacemaker SSS (sick sinus syndrome) Suicide ideation Supplemental oxygen dependent Tachy-josé luis syndrome Histories Past Medical History: Active HTN (hypertension) ([id number]) MVP (mitral valve prolapse) ([id number]) Hypercholesterolemia ([id number]) Anxiety ([id number]) Supplemental oxygen dependent ([id number]) Comments: 03/18/2021 EST 9:32 EST - MICHAEL Hilario 2l nc at Resolved Pneumonia ([id number]): Onset in the month of 07/2022 at 72 years Resolved. UTI (urinary tract infection) ([id number]): Onset in the month of 07/2022 at 72 years Resolved. Rib pain on left side ([id number]): Resolved. Family History: Breast cancer Mother Hypertension Father Mother Brother Stroke Father Heart attack Mother Diabetes Mother Brother Glioblastoma Mother Procedure history: UPPER BACK WOUND DEBRIDEMENT AND WOUND VAC CHANGE, with sharp, blunt and electrocautery debridementdown to muscle 14x9x2.5 with tunneling 2cm upper left ([id number]) on 10/05/2022 at 72 Years. Comments: 10/18/2022 15:21 EDT Bre Reyes LPN UPPER BACK WOUND DEBRIDEMENT AND WOUND VAC CHANGE, with sharp, blunt and electrocautery debridementdown to muscle 14x9x2.5 with tunneling 2cm upper left Wound Debridement with Application of Wo, DRAINAGE OF BACK ABSCESS. PLACEMENT OF WOUND VAC greater than 50 cm , sharp excisional debridement ([id number]) on 10/03/2022 at 72 Years. Comments: 10/18/2022 15:21 Bre Mccormick LPN Wound Debridement with Application of Wo, DRAINAGE OF BACK ABSCESS. PLACEMENT OF WOUND VAC greater than 50 cm , sharp excisional debridement Cardiac pacemaker ([id number]) on 03/18/2021 at 70 Years. Comments: 03/18/2021 14:10 Kim Matthews RN Dual chamber pacemaker implanted by Dr. Hamlin on 03/18/2021 at [facility]. Pacemaker generator is a [employer]onic [place] XT DR MRI model #W1DR01, serial #[id number]. RA lead is a Medtronic CapSureFix Novus MRI SureScan model #4076/52cm, serial #[id number]. RV lead is a Med[employer]onic CapSureFix Novus MRI SureScan model #4076/58cm, serial #[id number]. EKG finding ([id number]) on 11/13/2019 at 69 Years. Comments: 04/04/2020 15:13 Pamela Valdez MA (ABR-OE) A-fib with RVR, RBBB Echocardiogram ([id number]) on 10/29/2019 at 69 Years. Comments: 04/04/2020 15:11 Pamela Valdez MA (ABR-OE) EF 65% EKG finding ([id number]) on 10/29/2019 at 69 Years. Comments: 04/04/2020 15:14 Pamela Valdez MA (ABR-OE) Sinus tachycardia with 1st AV block, RBBB Cataract ([id number]) in the month of 09/2019 at 69 Years. Comments: 10/08/2019 11:26 JOELLE Vega MeloPamela barker MA (ABR-OE) right eye Cardiac catheterization ([id number]) on 03/09/2016 at 65 Years. Comments: 04/04/2020 15:19 Pamela Valdez MA (ABR-OE) Normal left ventricular function. Normal left ventricular hemodynamics. Normal coronary cineangiography. Echocardiogram ([id number]) on 02/13/2016 at 65 Years. Comments: 04/04/2020 15:12 Pamela Valdez MA (ABR-OE) EF 65% Biopsy of bladder ([id number]) in the month of 01/2016 at 65 Years. Comments: 10/20/2022 13:24 Karly Malhotra CMA Bladder Cardiovascular stress testing ([id number]) on 09/08/2015 at 65 Years. Comments: 04/04/2020 15:18 Pamela Valdez MA (ABR-OE) No evidence of ischemia Endoscopy ([id number]) on 02/21/1991 at 40 Years. Endoscopy ([id number]) on 12/06/1988 at 38 Years. Mastectomy ([id number]) in 1987 at 37 Years. Comments: 08/23/2014 10:39 MICHAEL CONCEPCION bilateral Endoscopy ([id number]) on 07/22/1986 at 35 Years. Arm Surgery ([id number]) in 1985 at 35 Years. Comments: 10/20/2022 13:27 Karly aMlhotra CMA Tendon release 10/16/2018 10:28 Cyn Murdock CMA bilateral Hysterectomy ([id number]) in 1982 at 32 Years. Comments: 10/20/2022 13:28 Karly Malhotra CMA abdominal approach 08/23/2014 10:40 MICHAEL CONCEPCION partial section ([id number]) in 1983 at 32 Years. Cholecystectomy ([id number]). Appendectomy ([id number]). Elbow ([id number]). Comments: 08/23/2014 10:39 EDT - MICHAEL LAM nerve trapped Dilation and curettage ([id number]). Transesophageal echocardiogram ([id number]). Comments: 02/26/2021 15:10 FERNANDO - Heather Vazquez LPN Summary: 1. Left ventricle: The cavity size is normal. Wall thickness is normal. Systolic function is normal. 2. Ventricular septum: There is no evidence of a ventricular septal defect. 3. Aortic valve: There is no evidence of a vegetation. 4. Mitral valve: There is no evidence of vegetation. 5. Left atrium: There is no evidence of a thrombus in the atrial cavity or appendage. No spontaneous echo contrast is observed. 6. Pulmonic valve: There is no evidence of a vegetation. 7. Tricuspid valve: There is no evidence of a vegetation. There is moderate regurgitation. 8. Right atrium: There is no evidence of a thrombus in the atrial cavity or appendage. 9. Atrial septum: No defect or patent foramen ovale is identified. Echo contrast study following anincrease in RA pressure induced by provocative maneuvers, shows no [id number] atrial level shunt. Cholecystectomy ([id number]). Comments: 10/20/2022 13:25 EDT - CouKarly olivares CMA after 2014 Radical mastectomy ([id number]). Comments: 10/20/2022 13:26 EDT - CouKarly olivares CMA Bilateral - Age 37 Biopsy of breast ([id number]). Comments: 10/20/2022 13:28 EDT - CousinKarly pina CMA multiple Social History Social & Psychosocial Habits Alcohol 04/10/2023 Use: Past Employment/School 04/06/2023 Status: Retired Substance Abuse 04/10/2023 Use: Never Tobacco 04/10/2023 Tobacco Use: Former smoker, quit more Exercise Comment: none - 02/23/2019 13:50 - Amanda Murphy LPN Home/Environment 04/10/2023 Domestic Concerns None Nutrition/Health 04/10/2023 Caffeine intake amount: coffee, 1 serving daily . Physical Examination General: Alert and oriented. Airway: Normal temporomandibular joint mobility, Normal mouth, Normal throat, Normal neck range of motion, Trachea midline. Mallampati classification: II (soft palate, fauces, uvula visible). Head: Normocephalic. Dentition Evaluation: Own teeth, Chipped teeth, front upper teeth chipped. Neck: Supple. Respiratory: Lungs are clear to auscultation, Respirations are non-labored. Cardiovascular: Normal rate, Regular rhythm, No murmur. Heart Sounds: Normal. Gastrointestinal: Soft. Musculoskeletal Normal range of motion. Integumentary: Intact, Warm, Dry. Neurologic: Alert, Oriented. Review / Management Results review: Lab results 04/14/2023 7:00 EST Transesophageal Echocardiogram - CV Ordered (In Progress) 04/14/2023 6:04 EST External Female external catheter 04/10/2023 Urinary Catheter Activity: Discontinued Urinary Catheter Output: 600 mL 04/14/2023 4:42 EST Heart Rate Monitored 71 bpm Respiratory Rate 16 br/min Systolic Blood Pressure Non-Invasive 166 mmHg HI Diastolic Blood Pressure Non-Invasive 86 mmHg Primary Pain Intensity 0 Pain Scale Type 0-10 Pain scale Nail Bed Color [place] Capillary Refill < 2 seconds Heart Sounds ICU S1S2 Heart Rhythm Regular Dorsalis Pedis Pulse, Left 1+ Thready Dorsalis Pedis Pulse, Right 1+ Thready Radial Pulse, Left 2+ Normal Radial Pulse, Right 2+ Normal Pedal edema Left Edema Ratin+ mild/4mm Ankle edema Left Edema Ratin+ mild/4mm Pretibial edema Left Edema Ratin+ mild/4mm Pretibial edema Right Edema Ratin+ mild/4mm Ankle edema Right Edema Ratin+ mild/4mm Pedal edema Right Edema Ratin+ mild/4mm Cardiac Rhythm 1:1 V Pacing with Capture Monitoring Lead III, V1/MCL1 QRS Duration 0.16 second(s) Alarms On and Functional Yes Heart Rate Alarm Set At - Low 50 Heart Rate Alarm Set At - High 120 Respirations Unlabored Respiratory Pattern Regular Breath Sounds Auscultated Anterior and posterior All Lobes Breath Sounds Clear Oxygen Therapy Room air Oxygen Saturation 99 % Abdomen Description Non-distended, Symmetric Abdomen Palpation Non-Tender Passing Flatus Yes Bowel Sounds All Quadrants Present Urinary Elimination Voiding, no difficulties External Female external catheter 04/10/2023 Urinary Catheter Activity: Assessed Urinary Catheter Site Condition: No complications Facial Movement Symmetric resting/crying Skin Symptoms Rash All Extremity Description Normal for ethnicity Skin Temperature Warm Temperature All Extremities Warm Skin Description Normal for ethnicity Skin Integrity Pressure points intact Skin Turgor Non-Elastic Mucous Membrane Color [place] Mucous Membrane Description Moist Antecubital Right 18 gauge Peripheral IV Activity: Assessed Peripheral IV Dressing Condition: Clean, Dry, Intact Peripheral IV Dressing Activity: Transparent dressing Peripheral IV Line Status/Patency: Flushes easily Peripheral IV Line Care: Secured with tape Peripheral IV Site Condition: No complications Peripheral IV Equipment: IV Pump Forearm Left 20 gauge Peripheral IV Activity: Assessed Peripheral IV Dressing Condition: Clean, Dry, Intact Peripheral IV Dressing Activity: Transparent dressing Peripheral IV Line Status/Patency: Flushes easily Peripheral IV Line Care: Secured with tape Peripheral IV Site Condition: No complications Peripheral IV Equipment: PRN Adaptor Neurological Language Able to speak clearly Neurological Symptoms Patient denies Gait Unable to assess Extremity Movement Equal Swallowing Difficulty None Characteristics of Communication Appropriate Characteristics of Speech Clear Facial Symmetry Symmetric Level of Consciousness Alert Aspiration Risk None FRAN Yes Left Pupil Description Regular Right Pupil Description Regular Left Pupil Reaction Brisk Right Pupil Reaction Brisk Pupil Size, Left 3 mm Pupil Size, Right 3 mm Strength All Extremities Moderate Left Upper Extremity Sensation Intact Right Upper Extremity Sensation Intact Left Lower Extremity Sensation Numbness Right Lower Extremity Sensation Numbness CN V Facial Sensation Light touch equal bilaterally CN VII Facial Expression and Symmetry Facial movement symmetrical CN VIII Hearing Spoken word equally audible left/right CN IX, X Swallowing, Gag Reflex Swallowing present Affect/Behavior Appropriate, Calm, Cooperative Orientation Oriented x 4 Positioning Repositions self Activity Status ADL Awake Standard Safety ID band on, Call device within reach, Bed in low position, Wheels locked, Upper/Half-Length side-rails up, Phone within reach, personal items within reach, Assistive devices within reach, Toileting device within reach High Risk Safety Identified as high risk, Room located near nursing station, Bed alert on, Door open, Bathroom light on, Non-Slip footwear Demonstrates Correct Call Light Use Yes amiodarone 1 mg/min mg heparin 10.96 unit(s)/kg/hr unit(s) Dextrose 5% Premix Diluent Dextrose 5% Premix Diluent mL Sodium Chloride 0.9% Sodium Chloride 0.9% mL 04/14/2023 4:32 EST WBC 4.4 10^3/mcL LOW RBC 5.06 10^6/mcL Hgb 14.2 G/dL Hct 42.8 % MCV 84.6 fL MCH 28.2 pg MCHC 33.3 G/dL RDW 16.7 % HI Platelet 168 10^3/mcL MPV 9.8 fL Neutrophil % 63.5 % Lymphocyte % 20.2 % Monocyte % 11.6 % Eosinophil % 3.5 % Basophil % 1.2 % Neutrophil, Absolute 2.8 10^3/mcL Lymphocyte, Absolute 0.9 10^3/mcL Monocyte, Absolute 0.5 10^3/mcL Eosinophil, Absolute 0.2 10^3/mcL Basophil, Absolute 0.1 10^3/mcL Heparin dose (APTT) Heparin IV APTT 49.0 seconds HI Glucose Level 208 mg/dL HI Sodium Level 139 mEq/L Potassium Level 4.1 mEq/L Chloride 107 mEq/L CO2 23 mEq/L Electrolyte Balance 9.0 mEq/L BUN 22.0 mg/dL Creatinine Lvl (s) 1.48 mg/dL HI BUN/Creatinine Ratio 14.9 ratio Calcium Lvl 9.6 mg/dL Magnesium Lvl 2.0 mg/dL Phosphorus 4.9 mg/dL Total Protein 6.7 G/dL Albumin Level 3.0 G/dL LOW Globulin 3.7 G/dL A/G Ratio 0.8 ratio LOW Bili Total 0.70 mg/dL Bili Direct 0.3 mg/dL Bili Indirect 0.4 mg/dL Alk Phos 73 U/L AST/SGOT 18 U/L ALT/SGPT 20 U/L GFR Non- 35 ml/min/1.73sqm NA GFR 42 ml/min/1.73sqm NA Creatinine Clearance Calc 32.81 mL/min 04/14/2023 4:11 EST Able To Drink Order Detail Not Done: Not Appropriate at this Time (Not Done) Able To Sign Consents Order Detail Not Done: Not Appropriate at this Time (Not Done) Code Status Order Detail Not Done: Not Appropriate at this Time (Not Done) IV Order Detail Not Done: Not Appropriate at this Time (Not Done) Dialysis Schedule Order Detail Not Done: Not Appropriate at this Time (Not Done) Has Diabetes Order Detail Not Done: Not Appropriate at this Time (Not Done) Isolation Precautions Order Detail Not Done: Not Appropriate at this Time (Not Done) Nurse Collect Order Detail Not Done: Not Appropriate at this Time (Not Done) Oxygen Order Detail Not Done: Not Appropriate at this Time (Not Done) Order Detail Not Done: Not Appropriate at this Time (Not Done) Prior Valve Replacement Order Detail Not Done: Not Appropriate at this Time (Not Done) Transport Mode Order Detail Not Done: Not Appropriate at this Time (Not Done) 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 Details Form Not Done (Not Done) 04/14/2023 2:27 EST External Female external catheter 04/10/2023 Urinary Catheter Activity: Changed Urinary Catheter Site Condition: No complications Urinary Catheter Care Completed: Yes 04/13/2023 23:23 EST atorvastatin 40 mg mg docusate 100 mg mg miconazole topical 1 krishna krishna mirtazapine 30 mg mg senna 8.6 mg mg 04/13/2023 23:20 EST Heparin dose (APTT) Heparin IV APTT 53.5 seconds HI 04/13/2023 23:00 EST Heart Rate Monitored 70 bpm Respiratory Rate 18 br/min Systolic Blood Pressure Non-Invasive 148 mmHg HI Diastolic Blood Pressure Non-Invasive 78 mmHg Reason For Taking VItal Signs Routine Primary Pain Intensity 0 Primary Pain Nonverbal Response Nods No Pain Scale Type 0-10 Pain scale Monitor Alarms On and Limits Checked Nail Bed Color [place] Capillary Refill < 2 seconds Heart Sounds ICU S1S2 Heart Rhythm Regular Radial Pulse, Left 2+ Normal Radial Pulse, Right 2+ Normal Monitoring Lead III, V1/MCL1 Alarms On and Functional Yes Heart Rate Alarm Set At - Low 50 Heart Rate Alarm Set At - High 120 Breath Sounds Auscultated Anterior and posterior All Lobes Breath Sounds Clear, Diminished Oxygen Therapy Room air Oxygen Saturation 99 % Abdomen Description Non-distended Abdomen Palpation Non-Tender Bowel Sounds All Quadrants Present Urinary Elimination Voiding, no difficulties External Female external catheter 04/10/2023 Urinary Catheter Activity: Changed Urinary Catheter Site Condition: No complications Urinary Catheter Care Completed: Yes All Extremity Description [place] Temperature All Extremities Warm Antecubital Right 18 gauge Peripheral IV Activity: Assessed Forearm Left 20 gauge Peripheral IV Activity: Assessed Neurological Symptoms Patient denies Level of Consciousness Alert FRAN Yes Strength All Extremities Moderate Affect/Behavior Appropriate, Calm, Cooperative Orientation Oriented x 4 Positioning Repositions self Activity Status ADL Awake Beds/Devices Hospital bed Activity Assistance One assist Standard Safety Safety level maintained High Risk Safety Room check performed Demonstrates Correct Call Light Use Yes 04/13/2023 21:01 EST Blood Glucose, Capillary 206 mg/dL HI Blood Glucose Testing Reason Routine External Female external catheter 04/10/2023 Urinary Catheter Activity: Changed Urinary Catheter Site Condition: No complications Urinary Catheter Care Completed: Yes 04/13/2023 20:00 EST Heart Rate Monitored 79 bpm Systolic Blood Pressure Non-Invasive 150 mmHg HI Diastolic Blood Pressure Non-Invasive 82 mmHg Blood Pressure Method Manual Reason For Taking VItal Signs Routine Primary Pain Intensity 0 Primary Pain Nonverbal Response Nods No Pain Scale Type 0-10 Pain scale Nail Bed Color [place] Capillary Refill < 2 seconds Dorsalis Pedis Pulse, Left 1+ Thready Dorsalis Pedis Pulse, Right 1+ Thready Posttibial Pulse, Left 1+ Thready Posttibial Pulse, Right 1+ Thready Radial Pulse, Left 2+ Normal Radial Pulse, Right 2+ Normal Pedal edema Left Edema Ratin+ mild/4mm Ankle edema Left Edema Ratin+ mild/4mm Pretibial edema Left Edema Ratin+ mild/4mm Pretibial edema Right Edema Ratin+ mild/4mm Ankle edema Right Edema Ratin+ mild/4mm Pedal edema Right Edema Ratin+ mild/4mm Monitoring Lead III, V1/MCL1 Alarms On and Functional Yes Heart Rate Alarm Set At - Low 50 Heart Rate Alarm Set At - High 120 Respirations Unlabored Respiratory Pattern Regular Breath Sounds Auscultated Anterior and posterior All Lobes Breath Sounds Clear, Diminished Oxygen Therapy Room air Abdomen Description Non-distended Abdomen Palpation Non-Tender Bowel Continence Continent Bowel Sounds All Quadrants Present Urinary Elimination Voiding, no difficulties External Female external catheter 04/10/2023 Urinary Catheter Activity: Assessed Urinary Catheter Site Condition: No complications Facial Movement Symmetric resting/crying Skin Symptoms Rash All Extremity Description [place] Skin Temperature Warm Temperature All Extremities Warm Skin Description [place], Normal for ethnicity Skin Integrity Pressure points intact Skin Turgor Non-Elastic Mucous Membrane Color [place] Mucous Membrane Description Moist Antecubital Right 18 gauge Peripheral IV Activity: Assessed Peripheral IV Dressing Condition: Clean, Dry, Intact Peripheral IV Dressing Activity: Transparent dressing Peripheral IV Line Status/Patency: Flushes easily, 10ml normal saline flush Peripheral IV Line Care: Secured with tape Peripheral IV Site Condition: No complications Peripheral IV Equipment: IV Pump Forearm Left 20 gauge Peripheral IV Activity: Assessed Peripheral IV Dressing Condition: Clean, Dry, Intact Peripheral IV Dressing Activity: Transparent dressing Peripheral IV Line Status/Patency: Flushes easily, 3ml normal saline flush, 10ml normal saline flush Peripheral IV Line Care: Secured with tape Peripheral IV Site Condition: No complications Peripheral IV Equipment: PRN Adaptor Neurological Language Able to speak clearly Neurological Symptoms Numbness, Tingling Gait Unable to assess Extremity Movement Equal Swallowing Difficulty None Characteristics of Communication Appropriate Characteristics of Speech Clear Facial Symmetry Symmetric Level of Consciousness Alert Aspiration Risk None FRAN Yes Left Pupil Description Regular Right Pupil Description Regular Left Pupil Reaction Brisk Right Pupil Reaction Brisk Pupil Size, Left 3 mm Pupil Size, Right 3 mm Strength All Extremities Moderate Left Upper Extremity Sensation Intact Right Upper Extremity Sensation Intact Left Lower Extremity Sensation Numbness, Tingling Right Lower Extremity Sensation Numbness, Tingling CN VII Facial Expression and Symmetry Facial movement symmetrical CN VIII Hearing Spoken word equally audible left/right CN IX, X Swallowing, Gag Reflex Swallowing present Violence Risk Confused No Violence Risk Irritable No Violence Risk Boisterous No Violence Risk Verbal Threats No Violence Risk Physical Threats No Violence Risk Attacking Objects No Violence Risk Predictor Score 0 Violence Risk Intervention None Violence Risk Current Interventions None Affect/Behavior Appropriate, Calm, Cooperative Orientation Oriented x 4 Positioning Encouraged/reinforced importance of turning Activity Status ADL Resting Beds/Devices Hospital bed Activity Assistance Two assist Standard Safety ID band on, Allergy Band on, Call device within reach, Bed in low position, Wheels locked, Upper/Half-Length side-rails up, Phone within reach, personal items within reach, Safety level maintained High Risk Safety Room check performed Demonstrates Correct Call Light Use Yes amiodarone 1 mg/min mg heparin 10.96 unit(s)/kg/hr unit(s) Dextrose 5% Premix Diluent Dextrose 5% Premix Diluent mL Sodium Chloride 0.9% Sodium Chloride 0.9% mL 04/13/2023 19:40 EST Temperature Oral 36.6 DegC Heart Rate Monitored 71 bpm Respiratory Rate 18 br/min Systolic Blood Pressure Non-Invasive 153 mmHg HI Diastolic Blood Pressure Non-Invasive 127 mmHg >HHI Blood Pressure Method Automatic Blood Pressure Location Left arm Blood Pressure Cuff Size Large Reason For Taking VItal Signs Routine Oxygen Therapy Room air Oxygen Saturation 100 % Positioning Repositions self Up to Chair Up to chair Activity Status ADL Resting Beds/Devices Hospital bed Activity Assistance One assist Standard Safety ID band on, Allergy Band on, Call device within reach, Bed in low position, Wheels locked, Upper/Half-Length side-rails up, Phone within reach, personal items within reach, Assistive devices within reach, Safety level maintained, Non-Slip footwear High Risk Safety Non-Slip footwear, Room check performed Demonstrates Correct Call Light Use Yes 04/13/2023 17:15 EST insulin lispro 5 unit(s) unit(s) 04/13/2023 17:09 EST furosemide 20 mg mg 04/13/2023 17:00 EST insulin lispro Not Done: Below Sliding Scale (Not Done) 04/13/2023 16:47 EST Blood Glucose, Capillary 144 mg/dL HI Blood Glucose Testing Reason Routine 04/13/2023 16:27 EST Post Rehab Outcome Not Done: See ICU flow (Not Done) Cardiac Rehab - Phase I Not Done (Not Done) 04/13/2023 15:46 EST Discharge To, Anticipated Home with family care Anticipated Discharge Date 04/15/2023 Transition Planning Note Transition Planning Ongoing Assessment 04/13/2023 15:28 EST Heparin dose (APTT) Heparin IV APTT 62.2 seconds HI 04/13/2023 14:59 EST Cardiac Rhythm 1:1 V Pacing with Capture Monitoring Lead III, V1/MCL1 QRS Duration 0.16 second(s) QT Interval 0.43 second(s) QTc Interval 0.47 second(s) ST Exclusion Criteria Yes Alarms On and Functional Yes Heart Rate Alarm Set At - Low 50 Heart Rate Alarm Set At - High 120 04/13/2023 14:58 EST Temperature Oral 36.6 DegC Heart Rate Monitored 71 bpm Respiratory Rate 18 br/min Systolic Blood Pressure Non-Invasive 144 mmHg HI Diastolic Blood Pressure Non-Invasive 78 mmHg Blood Pressure Method Manual Blood Pressure Location Left arm Blood Pressure Cuff Size Large Reason For Taking VItal Signs Routine Oxygen Saturation 98 % Positioning Repositions self Up to Chair Up to chair Activity Status ADL Awake Beds/Devices Hospital bed Activity Assistance One assist Standard Safety ID band on, Allergy Band on, Call device within reach, Bed in low position, Wheels locked, Upper/Half-Length side-rails up, Phone within reach, personal items within reach, Assistive devices within reach, Toileting device within reach, Safety level maintained, Non-Slip footwear High Risk Safety Non-Slip footwear, Room check performed Demonstrates Correct Call Light Use Yes 04/13/2023 14:00 EST Primary Pain Intensity 0 Primary Pain Nonverbal Response Nods No Pain Scale Type 0-10 Pain scale Heart Sounds ICU S1S2 Heart Rhythm Regular Dorsalis Pedis Pulse, Left 1+ Thready Dorsalis Pedis Pulse, Right 1+ Thready Posttibial Pulse, Left 1+ Thready Posttibial Pulse, Right 1+ Thready Radial Pulse, Left 2+ Normal Radial Pulse, Right 2+ Normal Breath Sounds Auscultated Anterior and posterior All Lobes Breath Sounds Clear, Diminished Oxygen Therapy Room air Urinary Elimination Voiding, no difficulties External Female external catheter 04/10/2023 Urinary Catheter Activity: Assessed Antecubital Right 18 gauge Peripheral IV Activity: Assessed Forearm Left 20 gauge Peripheral IV Activity: Assessed Neurological Symptoms Numbness Gait Unable to assess Level of Consciousness Alert FRAN Yes Affect/Behavior Appropriate, Calm, Cooperative Orientation Oriented x 4 Positioning Repositions self Activity Status ADL Awake, Resting Beds/Devices Hospital bed Activity Assistance One assist Standard Safety ID band on, Safety level maintained High Risk Safety Room check performed Demonstrates Correct Call Light Use Yes 04/13/2023 13:51 EST XR Esophagram XR ESOPHOGRAM 04/13/2023 12:21 EST Cardiology Progress Note Progress Note 04/13/2023 12:00 EST insulin lispro Not Done: Physician Order (Not Done) insulin lispro Not Done: Physician Order (Not Done) 04/13/2023 11:44 EST Blood Glucose, Capillary 122 mg/dL HI Blood Glucose Testing Reason Routine 04/13/2023 11:28 EST furosemide 60 mg mg 04/13/2023 11:27 EST Apical Heart Rate 70 bpm aspirin 81 mg mg bisacodyl 10 mg mg cholecalciferol 125 mcg mcg docusate 100 mg mg losartan 25 mg mg metoprolol 25 mg mg miconazole topical 1 krishna krishna senna 8.6 mg mg 04/13/2023 11:26 EST Primary Pain Intensity 0 Primary Pain Nonverbal Response Nods No Pain Scale Type 0-10 Pain scale Cardiovascular Symptoms Edema Nail Bed Color [place] Capillary Refill < 2 seconds Heart Sounds ICU S1S2 Heart Rhythm Regular Dorsalis Pedis Pulse, Left 1+ Thready Dorsalis Pedis Pulse, Right 1+ Thready Posttibial Pulse, Left 1+ Thready Posttibial Pulse, Right 1+ Thready Radial Pulse, Left 2+ Normal Radial Pulse, Right 2+ Normal Pedal edema Left Edema Ratin+ mild/4mm Ankle edema Left Edema Ratin+ mild/4mm Pretibial edema Left Edema Ratin+ mild/4mm Pretibial edema Right Edema Ratin+ mild/4mm Ankle edema Right Edema Ratin+ mild/4mm Pedal edema Right Edema Ratin+ mild/4mm Respiratory Symptoms Difficulty breathing with activity Respirations Unlabored Respiratory Pattern Regular Breath Sounds Auscultated Anterior and posterior All Lobes Breath Sounds Clear, Diminished Cough and Deep Breathe Not done Cough None Oxygen Therapy Room air Tracheal Position Midline Abdomen Description Non-distended, Symmetric Abdomen Palpation Non-Tender, Soft Passing Flatus Yes Bowel Continence Continent Swallowing Disorder None Bowel Sounds All Quadrants Present Urinary Elimination Voiding, no difficulties External Female external catheter 04/10/2023 Urinary Catheter Activity: Assessed Urinary Catheter Site Condition: No complications Facial Movement Symmetric resting/crying Skin Symptoms Ulcers/Lesions All Extremity Description [place], Normal for ethnicity Skin Temperature Warm Temperature All Extremities Warm Skin Description [place], Normal for ethnicity Skin Integrity Pressure points intact Skin Turgor Non-Elastic Mucous Membrane Color [place] Mucous Membrane Description Moist Antecubital Right 18 gauge Peripheral IV Activity: Assessed Peripheral IV Dressing Condition: Clean, Dry, Intact Peripheral IV Dressing Activity: Transparent dressing Peripheral IV Line Status/Patency: Flushes easily, Continuous infusion Peripheral IV Site Condition: No complications Peripheral IV Equipment: IV Pump, PRN Adaptor Forearm Left 20 gauge Peripheral IV Activity: Assessed Peripheral IV Dressing Condition: Clean, Dry, Intact Peripheral IV Dressing Activity: Transparent dressing Peripheral IV Line Status/Patency: Continuous infusion Peripheral IV Site Condition: No complications Peripheral IV Equipment: PRN Adaptor Neurological Language Able to speak clearly Neurological Symptoms Numbness Gait Unable to assess Extremity Movement Equal Swallowing Difficulty None Characteristics of Communication Appropriate Characteristics of Speech Clear Facial Symmetry Symmetric Level of Consciousness Alert Aspiration Risk None Eye Opening Response Inna Spontaneously Best Motor Response Inna Obeys simple commands Best Verbal Response Inna Oriented [place] Score 15 FRAN Yes Left Pupil Description Regular Right Pupil Description Regular Left Pupil Reaction Brisk Right Pupil Reaction Brisk Pupil Size, Left 3 mm Pupil Size, Right 3 mm Strength All Extremities Moderate Left Upper Extremity Sensation Intact Right Upper Extremity Sensation Intact Left Lower Extremity Sensation Numbness Right Lower Extremity Sensation Numbness CN VII Facial Expression and Symmetry Facial movement symmetrical CN VIII Hearing Spoken word equally audible left/right CN IX, X Swallowing, Gag Reflex Swallowing present Affect/Behavior Appropriate, Calm, Cooperative Orientation Oriented x 4 Positioning Repositions self Activity Status ADL Awake, Resting Beds/Devices Hospital bed Activity Assistance One assist Standard Safety ID band on, Safety level maintained High Risk Safety Room check performed Demonstrates Correct Call Light Use Yes amiodarone 1 mg/min mg heparin 10.96 unit(s)/kg/hr unit(s) Dextrose 5% Premix Diluent Dextrose 5% Premix Diluent mL Sodium Chloride 0.9% Sodium Chloride 0.9% mL Appetite Good Eating Difficulties None 04/13/2023 11:11 EST Temperature Oral 36.5 DegC Heart R (more content not included)... [id number] Date of Service 04/13/2023 Subjective 72-year-old with longstanding persistent atrial fibrillation, sinus bradycardia s/p DDD-PPM on 03/18/2021 (Medtronic), high ventricular pacing 60%, CHF, chronic venous stasis, subtherapeutic INR, HTN, HLP, GERD, diabetes, dizziness, bipolar, and other problems who EP is now consulted for atrial fibrillation management in setting of CHF. Patient has had couple months of swelling, fluid retention, d yspnea. She states her PCP was try to manage this, but ultimately she did not get better, and is now hospitalized. Her INR is 1.3. She was on sotalol at home, which is now discontinued. Echocardiogram 04/12/2023 (EF - 60% in September 2022) EF 30-35%, LVOT VTI 11.2 Diastolic dysfunction is present Moderately increased IVS thickness with paradoxical septal motion Aortic valve area 0.5, disproportionate to visual aortic valve opening. Needs further study Objective Vitals and Measurements T: 36.4 C (Oral) TMIN: 36.4 C (Oral) TMAX: 36.7 C (Oral) HR: 72(Monitored) RR: 20 BP: 140/68 SpO2: 100% Intake and Output 7AM Yesterday to 7AM Today Intake and Output (Last 24 hours) Intake Oral Intake 600.00 Administration Information 380.92 Output Urine Voided 1000.00 Stool Count 2.00 Urine Count 5.00 Diaper Count 3.00 Total Summary Total Intake 980.92 Total Output 1000.00 Fluid Balance -19.08 Physical Exam General Appearance: Patient comfortably lying on bed, not in acute distress Head: Normocephalic, atraumatic EENT: PERRLA, Neck: JVD is present Cardiac: s1s2,RRR, no murmurs or rubs or gallops Lungs: Bibasilar crackles Abdomen: Soft , Nontender, no organomegaly, bowel sounds heard Musculoskeletal: Full ROM , no gross deformities Extremities: Bilateral pedal edema 2+ Neurological: Alert, oriented x 3, grossly no focal neurological deficits Skin: No rash or ulcers Weight Dosing Weight: 100.4 kg (04/10/23) Medications Medications (33) Active Scheduled: (17) aspirin 81 mg EC 81 mg 1 tab(s), Oral, qDayM atorvastatin 40 mg tablet 40 mg 1 tab(s), Oral, qDay bisacodyl 5 mg EC tablet 10 mg 2 tab(s), Oral, qDay cholecalciferol 125 mcg capsule (Vit D3 5000 unit(s)) 125 mcg 1 cap(s), Oral, qDay docusate sodium 100 mg Capsule 100 mg 1 cap(s), Oral, BID furosemide 20 mg/2 mL vial 60 mg 6 mL, IV Push, BID insulin glargine 15 unit(s) 0.15 mL, Subcutaneous (INT), acBreakfast insulin lispro 100 units/mL Soln (3 mL) 5 unit(s) 0.05 mL, Subcutaneous, with breakfast insulin lispro 100 units/mL Soln (3 mL) 5 unit(s) 0.05 mL, Subcutaneous, with lunch insulin lispro 100 units/mL Soln (3 mL) 5 unit(s) 0.05 mL, Subcutaneous, with supper insulin lispro 100 units/mL Soln (3 mL) Give 0-10 units/dose, Subcutaneous, TIDAC losartan 25 mg tablet 25 mg 1 tab(s), Oral, qDay metoprolol succinate 25 mg ER tablet 25 mg 1 tab(s), Oral, qDayM miconazole topical 2% Powder 1 krishna, Topical, BID mirtazapine 15 mg tablet 30 mg 2 tab(s), Oral, qHS polyethylene glycol 3350 - UD packet 17 gram(s) 15 mL, Oral, qDay senna 8.6 mg Tablet 8.6 mg 1 tab(s), Oral, BID Continuous: (2) amiodarone 450 mg [1 mg/min] + sodium chloride FAY 250 mL 250 mL, Intravenous, 33.33 mL/hr heparin 25,000 unit(s) [1000 unit(s)/hr] + Dextrose 5% Premix Diluent 250 mL 250 mL, Intravenous, 10 mL/hr PRN: (14) acetaminophen 325 mg Tablet 650 mg 2 tab(s), Oral, q4h dextrose 50% Solution Disp syringe 50 mL 12.5 gram(s) 25 mL, IV Push, AsDirected heparin 5,000 units/mL (1 mL) vial 4,000 unit(s) 0.8 mL, IV Push, q6h loratadine 10 mg Tablet 10 mg 1 tab(s), Oral, BID magnesium sulfate 4 gram(s)/100mL PMX 4 g 100 mL, IV Piggyback, AsDirected magnesium sulfate 50% (500mg/mL) 6 g 12 mL, IV Piggyback, AsDirected magnesium sulfate PMX 2 g 50 mL, IV Piggyback, AsDirected nitroglycerin 0.4 mg Tablet (25/btl) 0.4 mg 1 tab(s), Sublingual, q5min ondansetron 4 mg tablet 4 mg 1 tab(s), Oral, q6h polyethylene glycol 3350 - UD packet 17 gram(s) 15 mL, Oral, BID potassium chloride (PMX) 20 mEq/100 mL 20 mEq 100 mL, IV Piggyback, AsDirected potassium chloride 20 mEq ER tablet 20 mEq 1 tab(s), Oral, AsDirected potassium chloride 20 mEq ER tablet 40 mEq 2 tab(s), Oral, AsDirected potassium chloride 20 mEq ER tablet 40 mEq 2 tab(s), Oral, AsDirected Lab Results 04/13 04:28 WBC: 5.3 Hgb: 14.4 Hct: 43.3 Platelet: 182 Neutrophil %: 61.7 Glucose Level: 147 H Sodium Level: 140 Potassium Level: 4.4 BUN: 21.0 Creatinine Lvl (s): 1.32 H 04/12 10:05 WBC: 4.5 Hgb: 14.0 Hct: 42.3 Platelet: 176 Neutrophil %: 57.8 Glucose Level: 87 Sodium Level: 137 Potassium Level: 4.0 BUN: 22.0 Creatinine Lvl (s): 1.19 EKG No qualifying data available. Assessment/Plan Orders: Cardioversion (CV) NPO for Procedure NPO for Procedure Transesophageal Echocardiogram Longstanding persistent atrial fibrillation Sick sinus syndrome status post Medtronic dual-chamber pacemaker placement Acute exacerbation of CHF Heart failure with preserved ejection fraction Type II OR Hypertension Hyperlipidemia Type 2 diabetes mellitus Review of the telemetry revealed close atrial relation/flutter. Heart rate is now under control at 72/min. Blood pressure is 140/68. Discontinue anticoagulation with IV heparin by weight. Continue amiodarone drip for now and will transition to p.o. amiodarone after cardioversion. VICTOR MANUEL and DCCV today. She may be a good candidate for hybrid maze in the future, given she is subtherapeutic INR frequently, and they can place JOSE clip and she would have a better chance of maintaining sinus rhythm long-term. Continue electrolyte repletion with target magnesium 2 and potassium 4. 2. CHF -Echocardiogram showed further reduction in EF down to 30-35% with low LVOT VTI. Patient will get left heart catheterization today. Continue diuretic as per general cardiology. 3. DDD-PPM present. V pacing 60%. Normal device function. - Patient has high RV pacing and further reduction of her EF. Will plan for [employer]EF[employer] INTERVIEWER-D upgrade as an outpatient when the acute condition resolves. 4. Comorbid conditions as above Digitally Signed by GEORGE BA MD on 04/13/2023 05:13 PM [id number] Note ORIGINAL EXAMINATION: ESOPHAGRAM/BA SWALLOW04/13/2023 1:51 pm TECHNIQUE: Spot orthogonal views of the esophagus were obtained following the administration of liquid barium. The examination was performed by resident physician Dr. Gustavo Núñez. The attending physician, Dr. Leung, was immediately available for consultation. Total dose: 17.4 mGy - Air Kerma COMPARISON: None. HISTORY: ORDERING SYSTEM PROVIDED HISTORY: Reason for Exam: Prior to VICTOR MANUEL. Dysphagia, patient unable to stand. FINDINGS: No laryngeal penetration or aspiration was observed. Patient was unable to stand and was having difficulty swallowing while laying down. The patient did not wish to continue with the exam. IMPRESSION: Non-diagnostic esophagram. I have personally reviewed the images of this examination and agree with the resident's findings and interpretation. Interpreted by: Babatunde Leung MD Preliminary Report By: Gustavo Núñez Electronically signed By Babatunde Leung MD Dictated Date: 04/13/2023 2:00:43 PM Prelim Date: 04/13/2023 3:37:33 PM Sign Date: 04/13/2023 3:37:33 PM Ordering Provider: [facility]01-24-2024 Note* Exam Date Time Procedure Performing Provider Status 04/13/23 10:28 AM Unsuccessful VICTOR MANUEL Auth (V erified) [facility] 01-24-2024 Note Date of Service 04/13/2023 Subjective 72-year-old with longstanding persistent atrial fibrillation, sinus bradycardia s/p DDD-PPM on 03/18/2021 ([employer]), high ventricular pacing 60%, CHF, chronic venous stasis, subtherapeutic INR, HTN, HLP, GERD, diabetes, dizziness, bipolar, and other problems who EP is now consulted for atrial fibrillation management in setting of CHF. Patient has had couple months of swelling, fluid retention, d yspnea. She states her PCP was try to manage this, but ultimately she did not get better, and is now hospitalized. Her INR is 1.3. She was on sotalol at home, which is now discontinued. Echocardiogram 04/12/2023 (EF - 60% in September 2022) EF 30-35%, LVOT VTI 11.2 Diastolic dysfunction is present Moderately increased IVS thickness with paradoxical septal motion Aortic valve area 0.5, disproportionate to visual aortic valve opening. Needs further study Objective Vitals and Measurements T: 36.4 C (Oral) TMIN: 36.4 C (Oral) TMAX: 36.7 C (Oral) HR: 72(Monitored) RR: 20 BP: 140/68 SpO2: 100% Intake and Output 7AM Yesterday to 7AM Today Intake and Output (Last 24 hours) Intake Oral Intake 600.00 Administration Information 380.92 Output Urine Voided 1000.00 Stool Count 2.00 Urine Count 5.00 Diaper Count 3.00 Total Summary Total Intake 980.92 Total Output 1000.00 Fluid Balance -19.08 Physical Exam General Appearance: Patient comfortably lying on bed, not in acute distress Head: Normocephalic, atraumatic EENT: PERRLA, Neck: JVD is present Cardiac: s1s2,RRR, no murmurs or rubs or gallops Lungs: Bibasilar crackles Abdomen: Soft , Nontender, no organomegaly, bowel sounds heard Musculoskeletal: Full ROM , no gross deformities Extremities: Bilateral pedal edema 2+ Neurological: Alert, oriented x 3, grossly no focal neurological deficits Skin: No rash or ulcers Weight Dosing Weight: 100.4 kg (04/10/23) Medications Medications (33) Active Scheduled: (17) aspirin 81 mg EC 81 mg 1 tab(s), Oral, qDayM atorvastatin 40 mg tablet 40 mg 1 tab(s), Oral, qDay bisacodyl 5 mg EC tablet 10 mg 2 tab(s), Oral, qDay cholecalciferol 125 mcg capsule (Vit D3 5000 unit(s)) 125 mcg 1 cap(s), Oral, qDay docusate sodium 100 mg Capsule 100 mg 1 cap(s), Oral, BID furosemide 20 mg/2 mL vial 60 mg 6 mL, IV Push, BID insulin glargine 15 unit(s) 0.15 mL, Subcutaneous (INT), acBreakfast insulin lispro 100 units/mL Soln (3 mL) 5 unit(s) 0.05 mL, Subcutaneous, with breakfast insulin lispro 100 units/mL Soln (3 mL) 5 unit(s) 0.05 mL, Subcutaneous, with lunch insulin lispro 100 units/mL Soln (3 mL) 5 unit(s) 0.05 mL, Subcutaneous, with supper insulin lispro 100 units/mL Soln (3 mL) Give 0-10 units/dose, Subcutaneous, TIDAC losartan 25 mg tablet 25 mg 1 tab(s), Oral, qDay metoprolol succinate 25 mg ER tablet 25 mg 1 tab(s), Oral, qDayM miconazole topical 2% Powder 1 krishna, Topical, BID mirtazapine 15 mg tablet 30 mg 2 tab(s), Oral, qHS polyethylene glycol 3350 - UD packet 17 gram(s) 15 mL, Oral, qDay senna 8.6 mg Tablet 8.6 mg 1 tab(s), Oral, BID Continuous: (2) amiodarone 450 mg [1 mg/min] + sodium chloride FAY 250 mL 250 mL, Intravenous, 33.33 mL/hr heparin 25,000 unit(s) [1000 unit(s)/hr] + Dextrose 5% Premix Diluent 250 mL 250 mL, Intravenous, 10 mL/hr PRN: (14) acetaminophen 325 mg Tablet 650 mg 2 tab(s), Oral, q4h dextrose 50% Solution Disp syringe 50 mL 12.5 gram(s) 25 mL, IV Push, AsDirected heparin 5,000 units/mL (1 mL) vial 4,000 unit(s) 0.8 mL, IV Push, q6h loratadine 10 mg Tablet 10 mg 1 tab(s), Oral, BID magnesium sulfate 4 gram(s)/100mL PMX 4 g 100 mL, IV Piggyback, AsDirected magnesium sulfate 50% (500mg/mL) 6 g 12 mL, IV Piggyback, AsDirected magnesium sulfate PMX 2 g 50 mL, IV Piggyback, AsDirected nitroglycerin 0.4 mg Tablet (25/btl) 0.4 mg 1 tab(s), Sublingual, q5min ondansetron 4 mg tablet 4 mg 1 tab(s), Oral, q6h polyethylene glycol 3350 - UD packet 17 gram(s) 15 mL, Oral, BID potassium chloride (PMX) 20 mEq/100 mL 20 mEq 100 mL, IV Piggyback, AsDirected potassium chloride 20 mEq ER tablet 20 mEq 1 tab(s), Oral, AsDirected potassium chloride 20 mEq ER tablet 40 mEq 2 tab(s), Oral, AsDirected potassium chloride 20 mEq ER tablet 40 mEq 2 tab(s), Oral, AsDirected Lab Results 04/13 04:28 WBC: 5.3 Hgb: 14.4 Hct: 43.3 Platelet: 182 Neutrophil %: 61.7 Glucose Level: 147 H Sodium Level: 140 Potassium Level: 4.4 BUN: 21.0 Creatinine Lvl (s): 1.32 H 04/12 10:05 WBC: 4.5 Hgb: 14.0 Hct: 42.3 Platelet: 176 Neutrophil %: 57.8 Glucose Level: 87 Sodium Level: 137 Potassium Level: 4.0 BUN: 22.0 Creatinine Lvl (s): 1.19 EKG No qualifying data available. Assessment/Plan Orders: Cardioversion (CV) NPO for Procedure NPO for Procedure Transesophageal Echocardiogram Longstanding persistent atrial fibrillation Sick sinus syndrome status post Medtronic dual-chamber pacemaker placement Acute exacerbation of CHF Heart failure with preserved ejection fraction Type II OR Hypertension Hyperlipidemia Type 2 diabetes mellitus Review of the telemetry revealed close atrial relation/flutter. Heart rate is now under control at 72/min. Blood pressure is 140/68. Discontinue anticoagulation with IV heparin by weight. Continue amiodarone drip for now and will transition to p.o. amiodarone after cardioversion. VICTOR MANUEL and DCCV today. She may be a good candidate for hybrid maze in the future, given she is subtherapeutic INR frequently, and they can place JOSE clip and she would have a better chance of maintaining sinus rhythm long-term. Continue electrolyte repletion with target magnesium 2 and potassium 4. 2. CHF -Echocardiogram showed further reduction in EF down to 30-35% with low LVOT VTI. Patient will get left heart catheterization today. Continue diuretic as per general cardiology. 3. DDD-PPM present. V pacing 60%. Normal device function. - Patient has high RV pacing and further reduction of her EF. Will plan for [employer]EF[employer] INTERVIEWER-D upgrade as an outpatient when the acute condition resolves. 4. Comorbid conditions as above Digitally Signed by GEORGE BA MD on 04/13/2023 05:13 PM [id number] Anesthesiology Consult note Patient: JOHN PAUL RODRIGUEZ Age: 72 years Sex: Female : 1950 Associated Diagnoses: None Author: TOVA DUDLEY MD Preoperative Information Greater than 8 hours Anesthesia history Patient's history: negative. Family's history: negative. Review of Systems Ear/Nose/Mouth/Throat: See Problem List. Respiratory: See Problem List. Cardiovascular: See Problem List. Gastrointestinal: See Problem List. Genitourinary: See Problem List. Endocrine: See Problem List. Musculoskeletal: See Problem List. Integumentary: See Problem List. Neurologic: See Problem List. See problem list and procedure results for specifics. Health Status Allergies: Allergic Reactions (Selected) Severity Not Documented Biaxin- Gi upset. Bystolic- Irregular heart beat. Cardizem- Dizziness. Cipro- No reactions were documented. Glucaphage- No reactions were documented. Penicillin- No reactions were documented. Tenormin- Bradycardia. Vancomycin- No reactions were documented. Zebeta- Unknown., Allergies (9) ActiveReaction biaxinGI upset BystolicIrregular heart beat CardizemDizziness ciproNone Documented glucaphageNone Documented penicillinNone Documented TenorminBradycardia vancomycinNone Documented ZebetaUnknown Current medications: (Selected) Inpatient Medications Ordered Amiodarone for IV 450 mg [1 mg/min] + NS 250 mL: 33.33 mL/hr, Intravenous Colace: 100 mg, 1 cap(s), Oral, BID Dextrose 50% IV Push: 12.5 gram(s), 25 mL, IV Push, AsDirected, PRN: Hypoglycemia Dulcolax Laxative: 10 mg, 2 tab(s), Oral, qDay Ecotrin: 81 mg, 1 tab(s), Oral, qDayM Heparin HBW CARDIAC Bolus 5000 units/mL: 4,000 unit(s), 0.8 mL, IV Push, q6h, PRN: Protocol, WeightBased Heparin Heparin for IV 25,000 unit(s) [1000 unit(s)/hr] + Dextrose 5% Premix Diluent 250 mL: 10 mL/hr, Intravenous HumaLOG 100 units/mL subcutaneous solution: 5 unit(s), 0.05 mL, Subcutaneous, with breakfast HumaLOG 100 units/mL subcutaneous solution: 5 unit(s), 0.05 mL, Subcutaneous, with lunch HumaLOG 100 units/mL subcutaneous solution: 5 unit(s), 0.05 mL, Subcutaneous, with supper HumaLOG 100 units/mL subcutaneous solution: Give 0-10 units/dose, Subcutaneous, TIDAC Lantus: 15 unit(s), 0.15 mL, 0 mL/hr, Subcutaneous (INT), acBreakfast Lipitor: 40 mg, 1 tab(s), Oral, qDay Miralax Powder Packet: 17 gram(s), 15 mL, Oral, BID, PRN: Constipation Miralax Powder Packet: 17 gram(s), 15 mL, Oral, qDay Vitamin D3 125 mcg (5000 intl units) oral capsule: 125 mcg, 1 cap(s), Oral, qDay acetaminophen: 650 mg, 2 tab(s), Oral, q4h, PRN: as needed for pain furosemide: 60 mg, 6 mL, IV Push, BID loratadine: 10 mg, 1 tab(s), Oral, BID, PRN: Itching losartan: 25 mg, 1 tab(s), Oral, qDay magnesium sulfate for IV bolus: 2 g, 50 mL, 25 mL/hr, IV Piggyback, AsDirected, PRN: for Mg level 1.5-1.8 mg/dl magnesium sulfate for IV bolus: 4 g, 100 mL, 25 mL/hr, IV Piggyback, AsDirected, PRN: for Mg level 1.1-1.4 mg/dl magnesium sulfate for IV bolus: 6 g, 12 mL, 41.67 mL/hr, IV Piggyback, AsDirected, PRN: for Mg level 1 mg/dl or less metoprolol succinate 25 mg oral TABLET extended release: 25 mg, 1 tab(s), Oral, qDayM miconazole 2% topical powder: 1 krishna, Topical, BID mirtazapine: 30 mg, 2 tab(s), Oral, qHS nitroglycerin 0.4 mg sublingual tablet: 0.4 mg, 1 tab(s), Sublingual, q5min, PRN: Chest pain ondansetron: 4 mg, 1 tab(s), Oral, q6h, PRN: Nausea/Vomiting potassium chloride bolus: 20 mEq, 100 mL, 50 mL/hr, IV Piggyback, AsDirected, PRN: for K+ level 2.5- 2.9 mEq/dL potassium chloride: 20 mEq, 1 tab(s), Oral, AsDirected, PRN: for K+ level 3.5 - 3.9 mEq/L potassium chloride: 40 mEq, 2 tab(s), Oral, AsDirected, PRN: for K+ level 2.5 - 2.9 mEq/dL potassium chloride: 40 mEq, 2 tab(s), Oral, AsDirected, PRN: for K+ level 3-3.4 mEq/L senna: 8.6 mg, 1 tab(s), Oral, BID Pending Complete Fluad Quadrivalent PF [id number]: 0.5 mL, Intramuscular, Vaccine-day 2 Prescriptions Prescribed Lopressor 25mg--USE metoprolol tartrate 25 mg oral tablet: 25 mg, 1 tab(s), Oral, Daily, 90 tab(s),3 Refill(s) NovoLOG FlexPen 100 units/mL injectable solution: 5 unit(s), Subcutaneous, TIDAC, for 90 day(s), 15mL, 3 Refill(s) Vitamin D3 125 mcg (5000 intl units) oral capsule: 125 mcg, 1 cap(s), Oral, qDay, 30 cap(s), 0 Refill(s) atorvastatin 20 mg oral tablet: 20 mg, 1 tab(s), Oral, qDay, 30 tab(s), 0 Refill(s) clindamycin 150 mg oral capsule: 450 mg, 3 cap(s), Oral, q8h, for 10 day(s), 90 cap(s), 0 Refill(s) loratadine 10 mg oral tablet: 10 mg, 1 tab(s), Oral, BID, PRN: Itching, 180 tab(s), 3 Refill(s) losartan 25 mg oral tablet: 25 mg, 1 tab(s), Oral, qDay, 30 tab(s), 3 Refill(s) mirtazapine 30 mg oral tablet: 30 mg, 1 tab(s), Oral, qHS, Replaces previous Rx for mirtazapine 15 mg dose., 30 tab(s), 2 Refill(s) sotalol 80 mg oral tablet: 80 mg, 1 tab(s), Oral, qHS, 90 tab(s), 3 Refill(s) warfarin 5 mg oral tablet: 5 mg, 1 tab(s), Oral, qDay, 30 tab(s), 1 Refill(s) Documented Medications Documented acetaminophen-hydrocodone 325 mg-7.5 mg oral tablet: 1 tab(s), Oral, q4h, PRN: for pain, 12 tab(s),0 Refill(s) acetaminophen: 650 mg, 2 tab(s), Oral, q4h, PRN: Pain, scale 1-6, 0 Refill(s) furosemide 40 mg oral tablet: 40 mg, 1 tab(s), Oral, qDay insulin glargine-yfgn 100 units/mL subcutaneous solution: 20, Subcutaneous, qDay, q andrew, 0 Refill(s) miconazole 2% topical powder: 1 krishna, Topical, BID, 0 Refill(s) ondansetron 4 mg oral tablet: 4 mg, 1 tab(s), Oral, q8h, PRN: Nausea/Vomiting, 15 tab(s), 0 Refill(s), Medications (33) Active Scheduled: (17) aspirin 81 mg EC 81 mg 1 tab(s), Oral, qDayM atorvastatin 40 mg tablet 40 mg 1 tab(s), Oral, qDay bisacodyl 5 mg EC tablet 10 mg 2 tab(s), Oral, qDay cholecalciferol 125 mcg capsule (Vit D3 5000 unit(s)) 125 mcg 1 cap(s), Oral, qDay docusate sodium 100 mg Capsule 100 mg 1 cap(s), Oral, BID furosemide 20 mg/2 mL vial 60 mg 6 mL, IV Push, BID insulin glargine 15 unit(s) 0.15 mL, Subcutaneous (INT), acBreakfast insulin lispro 100 units/mL Soln (3 mL) 5 unit(s) 0.05 mL, Subcutaneous, with breakfast insulin lispro 100 units/mL Soln (3 mL) 5 unit(s) 0.05 mL, Subcutaneous, with lunch insulin lispro 100 units/mL Soln (3 mL) 5 unit(s) 0.05 mL, Subcutaneous, with supper insulin lispro 100 units/mL Soln (3 mL) Give 0-10 units/dose, Subcutaneous, TIDAC losartan 25 mg tablet 25 mg 1 tab(s), Oral, qDay metoprolol succinate 25 mg ER tablet 25 mg 1 tab(s), Oral, qDayM miconazole topical 2% Powder 1 krishna, Topical, BID mirtazapine 15 mg tablet 30 mg 2 tab(s), Oral, qHS polyethylene glycol 3350 - UD packet 17 gram(s) 15 mL, Oral, qDay senna 8.6 mg Tablet 8.6 mg 1 tab(s), Oral, BID Continuous: (2) amiodarone 450 mg [1 mg/min] + sodium chloride FAY 250 mL 250 mL, Intravenous, 33.33 mL/hr heparin 25,000 unit(s) [1000 unit(s)/hr] + Dextrose 5% Premix Diluent 250 mL 250 mL, Intravenous, 10 mL/hr PRN: (14) acetaminophen 325 mg Tablet 650 mg 2 tab(s), Oral, q4h dextrose 50% Solution Disp syringe 50 mL 12.5 gram(s) 25 mL, IV Push, AsDirected heparin 5,000 units/mL (1 mL) vial 4,000 unit(s) 0.8 mL, IV Push, q6h loratadine 10 mg Tablet 10 mg 1 tab(s), Oral, BID magnesium sulfate 4 gram(s)/100mL PMX 4 g 100 mL, IV Piggyback, AsDirected magnesium sulfate 50% (500mg/mL) 6 g 12 mL, IV Piggyback, AsDirected magnesium sulfate PMX 2 g 50 mL, IV Piggyback, AsDirected nitroglycerin 0.4 mg Tablet (25/btl) 0.4 mg 1 tab(s), Sublingual, q5min ondansetron 4 mg tablet 4 mg 1 tab(s), Oral, q6h polyethylene glycol 3350 - UD packet 17 gram(s) 15 mL, Oral, BID potassium chloride (PMX) 20 mEq/100 mL 20 mEq 100 mL, IV Piggyback, AsDirected potassium chloride 20 mEq ER tablet 20 mEq 1 tab(s), Oral, AsDirected potassium chloride 20 mEq ER tablet 40 mEq 2 tab(s), Oral, AsDirected potassium chloride 20 mEq ER tablet 40 mEq 2 tab(s), Oral, AsDirected Problem list: Medical Mental status alteration / SNOMED CT 0404824821 / Confirmed Anxiety / SNOMED CT [id number] / Confirmed Atrial fibrillation / SNOMED CT 22073442 / Confirmed Edema of both lower extremities / SNOMED CT 3290400086 / Confirmed Osteoarthritis of knees, bilateral / SNOMED CT 1738162309 / Confirmed Bipolar disorder / SNOMED CT 62647724 / Confirmed Pacemaker / SNOMED CT 4632561777 / Confirmed Chest pain / SNOMED CT 01002635 / Confirmed Chronic lumbar pain / SNOMED CT 449441534 / Confirmed Chronic urticaria / SNOMED CT 86901624 / Confirmed Supplemental oxygen dependent / SNOMED CT 7191795989 / Confirmed Depression / SNOMED CT 96588666 / Confirmed Diabetic polyneuropathy / SNOMED CT 82039900 / Confirmed Dizziness / SNOMED CT 0009976989 / Confirmed On continuous oral anticoagulation / SNOMED CT 3826759497 / Confirmed Dyspnea / SNOMED CT 165758069 / Confirmed GERD - Gastro-esophageal reflux disease / SNOMED CT 3078901801 / Confirmed Chronic left hip pain / SNOMED CT 24922639 / Confirmed HTN (hypertension) / SNOMED CT [id number] / Confirmed Hypercholesterolemia / SNOMED CT 48930450 / Confirmed Nocturnal hypoxia / SNOMED CT 7764022215 / Confirmed Diabetes mellitus type 2, insulin dependent / SNOMED CT 5979865067 / Confirmed Long-term (current) use of anticoagulants, INR goal 2.0-3.0 / SNOMED CT 7728729161 / Confirmed MVP (mitral valve prolapse) / SNOMED CT [id number] / Confirmed Chronic nausea / SNOMED CT 7142880197 / Confirmed Organic sleep apnea / SNOMED CT 8918155689 / Confirmed SSS (sick sinus syndrome) / SNOMED CT 23216492 / Confirmed Suicide ideation / SNOMED CT 160409549 / Confirmed 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 Resolved: Pneumonia / SNOMED CT 864136482 Resolved: Rib pain on left side / SNOMED CT 395880087 Resolved: UTI (urinary tract infection) / SNOMED CT 225088211 Canceled: Breast cancer / SNOMED CT 958069366 Canceled: Diabetes / SNOMED CT [id number] Canceled: Urinary frequency / SNOMED CT 271139011 Canceled: PAF (paroxysmal atrial fibrillation) / SNOMED CT 556599013 Canceled: Preop cardiovascular exam / SNOMED CT 211040502, Active Problems (29) Anxiety Atrial fibrillation Bipolar disorder Chest pain Chronic left hip pain Chronic lumbar pain Chronic nausea Chronic urticaria Depression Diabetes mellitus type 2, insulin dependent Diabetic polyneuropathy Dizziness Dyspnea Edema of both lower extremities GERD - Gastro-esophageal reflux disease HTN (hypertension) Hypercholesterolemia Long-term (current) use of anticoagulants, INR goal 2.0-3.0 Mental status alteration MVP (mitral valve prolapse) Nocturnal hypoxia On continuous oral anticoagulation Organic sleep apnea Osteoarthritis of knees, bilateral Pacemaker SSS (sick sinus syndrome) Suicide ideation Supplemental oxygen dependent Tachy-josé luis syndrome Histories Past Medical History: Active HTN (hypertension) ([id number]) MVP (mitral valve prolapse) ([id number]) Hypercholesterolemia (08698057) Anxiety ([id number]) Supplemental oxygen dependent (2418195156) Comments: 03/18/2021 EST 9:32 MICHAEL Quintanathia Zuhair scott dc at Resolved Pneumonia (984042580): Onset in the month of 07/2022 at 72 years Resolved. UTI (urinary tract infection) (328846414): Onset in the month of 07/2022 at 72 years Resolved. Rib pain on left side (232150419): Resolved. Family History: Breast cancer Mother Hypertension Father Mother Brother Stroke Father Heart attack Mother Diabetes Mother Brother Glioblastoma Mother Procedure history: UPPER BACK WOUND DEBRIDEMENT AND WOUND VAC CHANGE, with sharp, blunt and electrocautery debridementdown to muscle 14x9x2.5 with tunneling 2cm upper left ([id number]) on 10/05/2022 at 72 Years. Comments: 10/18/2022 15:21 Bre Mccormick LPN UPPER BACK WOUND DEBRIDEMENT AND WOUND VAC CHANGE, with sharp, blunt and electrocautery debridementdown to muscle 14x9x2.5 with tunneling 2cm upper left Wound Debridement with Application of Wo, DRAINAGE OF BACK ABSCESS. PLACEMENT OF WOUND VAC greater than 50 cm , sharp excisional debridement ([id number]) on 10/03/2022 at 72 Years. Comments: 10/18/2022 15:21 Bre Mccormick LPN Wound Debridement with Application of Wo, DRAINAGE OF BACK ABSCESS. PLACEMENT OF WOUND VAC greater than 50 cm , sharp excisional debridement Cardiac pacemaker ([id number]) on 03/18/2021 at 70 Years. Comments: 03/18/2021 14:10 Kim Matthews RN Dual chamber pacemaker implanted by Dr. Hamlin on 03/18/2021 at [facility]. Pacemaker generator is a Medtronic Seda XT DR MRI model #W1DR01, serial #[id number]. RA lead is a Medtronic CapSureFix Novus MRI SureScan model #4076/52cm, serial #[id number]. RV lead is a Medtronic CapSureFix Novus MRI SureScan model #4076/58cm, serial #[id number]. EKG finding ([id number]) on 11/13/2019 at 69 Years. Comments: 04/04/2020 15:13 Pamela Valdez MA (ABR-OE) A-fib with RVR, RBBB Echocardiogram ([id number]) on 10/29/2019 at 69 Years. Comments: 04/04/2020 15:11 Pamela Valdez MA (ABR-OE) EF 65% EKG finding ([id number]) on 10/29/2019 at 69 Years. Comments: 04/04/2020 15:14 Pamela Valdez MA (ABR-OE) Sinus tachycardia with 1st AV block, RBBB Cataract ([id number]) in the month of 09/2019 at 69 Years. Comments: 10/08/2019 11:26 Pamela Alexander MA (ABR-OE) right eye Cardiac catheterization ([id number]) on 03/09/2016 at 65 Years. Comments: 04/04/2020 15:19 Pamela Valdez MA (ABR-OE) Normal left ventricular function. Normal left ventricular hemodynamics. Normal coronary cineangiography. Echocardiogram ([id number]) on 02/13/2016 at 65 Years. Comments: 04/04/2020 15:12 Pamela Valdez MA (ABR-OE) EF 65% Biopsy of bladder ([id number]) in the month of 01/2016 at 65 Years. Comments: 10/20/2022 13:24 EDT - IlianaKarly CMA Bladder Cardiovascular stress testing ([id number]) on 09/08/2015 at 65 Years. Comments: 04/04/2020 15:18 FERNANDO Pamela Wheeler MA (ABR-OE) No evidence of ischemia Endoscopy ([id number]) on 02/21/1991 at 40 Years. Endoscopy (0906908576) on 12/06/1988 at 38 Years. Mastectomy (4949939496) in 1987 at 37 Years. Comments: 08/23/2014 10:39 JOHNT MICHAEL HINTON bilateral Endoscopy ([id number]) on 07/22/1986 at 35 Years. Arm Surgery ([id number]) in 1985 at 35 Years. Comments: 10/20/2022 13:27 EDT - Karly Barrientos [employer] Tendon release 10/16/2018 10:28 Cyn Murdock CMA bilateral Hysterectomy ([id number]) in 1982 at 32 Years. Comments: 10/20/2022 13:28 Karly Malhotra CMA abdominal approach 08/23/2014 10:40 MICHAEL CONCEPCION partial section ([id number]) in 1982 at 32 Years. Cholecystectomy (60441285). Appendectomy (440964899). Elbow (426577040). Comments: 08/23/2014 10:39 MICHAEL CONCEPCION nerve trapped Dilation and curettage (52084578). Transesophageal echocardiogram (9465286983). Comments: 02/26/2021 15:10 Heather Harris LPN Summary: 1. Left ventricle: The cavity size is normal. Wall thickness is normal. Systolic function is normal. 2. Ventricular septum: There is no evidence of a ventricular septal defect. 3. Aortic valve: There is no evidence of a vegetation. 4. Mitral valve: There is no evidence of vegetation. 5. Left atrium: There is no evidence of a thrombus in the atrial cavity or appendage. No spontaneous echo contrast is observed. 6. Pulmonic valve: There is no evidence of a vegetation. 7. Tricuspid valve: There is no evidence of a vegetation. There is moderate regurgitation. 8. Right atrium: There is no evidence of a thrombus in the atrial cavity or appendage. 9. Atrial septum: No defect or patent foramen ovale is identified. Echo contrast study following anincrease in RA pressure induced by provocative maneuvers, shows no [id number] atrial level shunt. Cholecystectomy (54998616). Comments: 10/20/2022 13:25 Karly Malhotra CMA after 2014 Radical mastectomy ([id number]). Comments: 10/20/2022 13:26 Karly Malhotra CMA Bilateral - Age 37 Biopsy of breast (515761153). Comments: 10/20/2022 13:28 Karly Malhotra CMA multiple Social History Social & Psychosocial Habits Alcohol 04/10/2023 Use: Past Employment/School 04/06/2023 Status: Retired Substance Abuse 04/10/2023 Use: Never Tobacco 04/10/2023 Tobacco Use: Former smoker, quit more Exercise Comment: none - 02/23/2019 13:50 - Amanda Murphy LPN Home/Environment 04/10/2023 Domestic Concerns None Nutrition/Health 04/10/2023 Caffeine intake amount: coffee, 1 serving daily . Physical Examination Vital Signs 04/13/2023 2:51 EST Temperature Oral 36.7 DegC Heart Rate Monitored 70 bpm Respiratory Rate 18 br/min Systolic Blood Pressure Non-Invasive 160 mmHg HI Diastolic Blood Pressure Non-Invasive 100 mmHg >HHI Blood Pressure Method Manual Blood Pressure Location Left arm Blood Pressure Cuff Size Large 04/13/2023 0:04 EST Temperature Oral 36.7 DegC Heart Rate Monitored 71 bpm Respiratory Rate 18 br/min 04/12/2023 20:26 EST Temperature Oral 36.5 DegC Heart Rate Monitored 70 bpm Respiratory Rate 20 br/min Reason For Taking VItal Signs Routine 04/12/2023 19:43 EST Heart Rate Monitored 76 bpm Respiratory Rate 20 br/min Reason For Taking VItal Signs Routine 04/12/2023 17:04 EST Apical Heart Rate 72 bpm 04/12/2023 17:02 EST Heart Rate Monitored 78 bpm Respiratory Rate 20 br/min Reason For Taking VItal Signs Routine 04/12/2023 16:45 EST Heart Rate Monitored 71 bpm Respiratory Rate 20 br/min Systolic Blood Pressure Non-Invasive 148 mmHg HI Diastolic Blood Pressure Non-Invasive 88 mmHg Blood Pressure Method Manual Blood Pressure Location Left arm Blood Pressure Cuff Size Large Reason For Taking VItal Signs Routine 04/12/2023 11:43 EST Heart Rate Monitored 77 bpm 04/12/2023 10:58 EST Temperature Oral 36.6 DegC Heart Rate Monitored 71 bpm Respiratory Rate 20 br/min Systolic Blood Pressure Non-Invasive 144 mmHg HI Diastolic Blood Pressure Non-Invasive 96 mmHg HI Blood Pressure Method Manual Blood Pressure Location Left arm Blood Pressure Cuff Size Large Reason For Taking VItal Signs Routine 04/12/2023 7:51 EST Apical Heart Rate 70 bpm 04/12/2023 7:40 EST Heart Rate Monitored 70 bpm 04/12/2023 7:21 EST Temperature Oral 36.5 DegC Heart Rate Monitored 70 bpm Respiratory Rate 20 br/min Systolic Blood Pressure Non-Invasive 120 mmHg Diastolic Blood Pressure Non-Invasive 90 mmHg HI Blood Pressure Method Manual Blood Pressure Location Left arm Blood Pressure Cuff Size Large Reason For Taking VItal Signs Routine 04/12/2023 3:59 EST Temperature Oral 36.3 DegC Heart Rate Monitored 71 bpm Respiratory Rate 16 br/min Systolic Blood Pressure Non-Invasive 160 mmHg HI Diastolic Blood Pressure Non-Invasive 113 mmHg >HHI Mean Arterial Pressure (NBP) 117 mmHg Reason For Taking VItal Signs Routine Vital Signs(last 24 hrs) Last Charted Temp Oral36.7 DegC (APR 13 02:51) Heart Rate [id number] bpm (APR 13:51) SBPH 160mmHg (APR 13:51) DBPC 100mmHg (APR 13:51) General: Alert and oriented. Airway: Normal temporomandibular joint mobility, Normal mouth, Normal throat, Normal neck range of motion, Trachea midline. Mallampati classification: II (soft palate, fauces, uvula visible). Head: Normocephalic. Dentition Evaluation: Intact, Own teeth, Denies loose/chipped teeth. Neck: Supple. Respiratory: Lungs are clear to auscultation, Respirations are non-labored. Cardiovascular: Normal rate, No murmur. Heart Sounds: Normal. Neurologic: Alert, Oriented. Review / Management Results review: Labs (Last four charted values) WBC 5.3(APR 13)4.5(APR 12)7.2(APR 11)5.2(APR 10) Hgb 14.4(APR 13)14.0(APR 12)13.6(APR 11)13.5(APR 10) Hct 43.3(APR 13)42.3(APR 12)40.1(APR 11)40.7(APR 10) Plt 182(APR 13)176(APR 12)184(APR 11)183(APR 10) Na 140(APR 13)137(APR 12)139(APR 11)L 132(APR 10) K 4.4(APR 13)4.0(APR 12)3.8(APR 11)4.0(APR 10) CO2 L 21(APR 13)31(APR 12)27(APR 11)25(APR 10) Cl 106(APR 13)107(APR 12)106(APR 11)109(APR 10) Cr H 1.32(APR 13)1.19(APR 12)0.92(APR 11)0.87(APR 10) BUN 21.0(APR 13)22.0(APR 12)17.0(APR 11)13.0(APR 10) Glucose H 147(APR 13)87(APR 12)H 149(APR 11)H 219(APR 10) Mg 2.1(APR 13)2.1(APR 12)2.1(APR 11)2.1(APR 10) Phos H 5.3(APR 13)4.3(APR 12)3.5(APR 11)3.4(APR 10) Ca 10.1(APR 13)9.5(APR 12)9.4(APR 11)9.8(APR 10) PT H 14.4(APR 10) INR 1.3(APR 10) PTT H 83.3(APR 13)H 60.5(APR 12)H 71.4(APR 12)H 48.3(APR 11) . Assessment and Plan [place] [employer]hesi[employer] (ASA) physical status classification: Class III. Anesthetic Preoperative Plan Premedication: intravenous. Anesthetic technique: General. Induction: intravenously. Maintenance airway: Mask. Special techniques. Special Monitoring. Postoperative pain management: Per surgeon. Risks discussed: nausea, vomiting, headache, sore throat, dental injury, hypotension, allergic reaction, serious complications, Heart Problems, Lung Problems, Stroke, Intraoperative Recall, . Informed consent: signed by patient. After completion of focused history and physical examination, anesthetic options with their inherent risks and benefits were discussed. Common minor and rare but serious or potentially life-threatening complications were included in this discussion(Specific items discussed: nausea, sore throat, dysphagia, heart problems, lung problems, strokes, heart attacks, intraoperative recall and ). All of the patient's questions were answered. The patient verbalizes understanding of the agreed upon anesthetic plan and agrees to proceed. Digitally Signed by TOVA DUDLEY MD on 04/13/2023 06:36 AM [id number] Note Date of Service 04/12/23 Chief Complaint intermittent sob Subjective 72-year-old female with past medical history of hypertension, hyperlipidemia, atrial fibrillation on warfarin, sick sinus syndrome status post pacemaker, insulin-dependent diabetes, neuropathy, GERD,bipolar disorder, anxiety, depression, cognitive impairment and obesity. [facility]. Patient initially presented to the ER for shortness of breath, abdominal pain, lower extremity pain and weight gain. Workup at outside hospital showed an elevated troponin of 1400. Chest x- ray showed vascular congestion. CTA showed vascular congestion, no evidence of PE. CT of abdomen pelvis showed a large stool burden. EKG read atrial flutter. Patient was placed on heparin by weight. Echocardiogram is pending. EP was consulted for persistent atrial fibrillation and initiated amiodarone. Hospitalist team was consulted for medical management. Patient seen today sitting in the chair. She states she is feeling better today. She continues to have intermittent shortness of breath at times. No chest pain or abdominal pain. No nausea or vomiting. She was eating lunch without issues. Objective Vitals and Measurements T: 36.6 C (Oral) TMIN: 36.2 C (Oral) TMAX: 36.6 C (Oral) HR: 77(Monitored) RR: 20 BP: 144/96 SpO2: 95% Intake and Output 7AM Yesterday to 7AM Today Intake and Output (Last 24 hours) Intake Oral Intake 720.00 Administration Information 570.77 Output Urine Voided 500.00 Stool Count 1.00 Urine Count 4.00 Diaper Count 5.00 Total Summary Total Intake 1290.77 Total Output 500.00 Fluid Balance 790.77 Physical Exam General: No acute distress. Alert and Appropriate Skin: No rash. Warm, Dry, BLE discoloration HEENT: Head is normocephalic and atraumatic. No lesions. Pupils equal in size. Extraocular movements within normal limits. Nose: No septal deviation. Mouth: Oropharynx mucosa is without lesion. Neck: Supple. No lymphadenopathy, thyromegaly noted. Lungs: Bilaterally clear/diminished breath sounds with no crepitation or wheeze. Unlabored on room air Cardiovascular: Heart is irregular rhythm, No extra-audible heart tones Abdomen: Abdomen is soft, nontender. Bowel sounds positive all four quadrants. Extremities: No clubbing, cyanosis or edema. Peripheral and distal pulses palpable. No calf tenderness. Adequate peripheral circulation. Neurological: The patient is awake, Following simple commands, moving all extremities. Weight Dosing Weight: 100.4 kg (04/10/23) Medications Medications (33) Active Scheduled: (17) aspirin 81 mg EC 81 mg 1 tab(s), Oral, qDayM atorvastatin 40 mg tablet 40 mg 1 tab(s), Oral, qDay bisacodyl 5 mg EC tablet 10 mg 2 tab(s), Oral, qDay cholecalciferol 125 mcg capsule (Vit D3 5000 unit(s)) 125 mcg 1 cap(s), Oral, qDay docusate-senna (Senokot S) 50 mg-8.6 mg Tablet 1 tab(s), Oral, BID furosemide 20 mg/2 mL vial 60 mg 6 mL, IV Push, BID insulin glargine 15 unit(s) 0.15 mL, Subcutaneous (INT), acBreakfast insulin lispro 100 units/mL Soln (3 mL) 5 unit(s) 0.05 mL, Subcutaneous, with breakfast insulin lispro 100 units/mL Soln (3 mL) 5 unit(s) 0.05 mL, Subcutaneous, with lunch insulin lispro 100 units/mL Soln (3 mL) 5 unit(s) 0.05 mL, Subcutaneous, with supper insulin lispro 100 units/mL Soln (3 mL) Give 0-10 units/dose, Subcutaneous, TIDAC losartan 25 mg tablet 25 mg 1 tab(s), Oral, qDay metoprolol succinate 25 mg ER tablet 25 mg 1 tab(s), Oral, qDayM metoprolol tartrate 25 mg tablet 25 mg 1 tab(s), Oral, Once miconazole topical 2% Powder 1 krishna, Topical, BID mirtazapine 15 mg tablet 30 mg 2 tab(s), Oral, qHS polyethylene glycol 3350 - UD packet 17 gram(s) 15 mL, Oral, qDay Continuous: (2) amiodarone 450 mg [1 mg/min] + sodium chloride FAY 250 mL 250 mL, Intravenous, 33.33 mL/hr heparin 25,000 unit(s) [1000 unit(s)/hr] + Dextrose 5% Premix Diluent 250 mL 250 mL, Intravenous, 10 mL/hr PRN: (14) acetaminophen 325 mg Tablet 650 mg 2 tab(s), Oral, q4h dextrose 50% Solution Disp syringe 50 mL 12.5 gram(s) 25 mL, IV Push, AsDirected heparin 5,000 units/mL (1 mL) vial 4,000 unit(s) 0.8 mL, IV Push, q6h loratadine 10 mg Tablet 10 mg 1 tab(s), Oral, BID magnesium sulfate 4 gram(s)/100mL PMX 4 g 100 mL, IV Piggyback, AsDirected magnesium sulfate 50% (500mg/mL) 6 g 12 mL, IV Piggyback, AsDirected magnesium sulfate PMX 2 g 50 mL, IV Piggyback, AsDirected nitroglycerin 0.4 mg Tablet (25/btl) 0.4 mg 1 tab(s), Sublingual, q5min ondansetron 4 mg tablet 4 mg 1 tab(s), Oral, q8h polyethylene glycol 3350 - UD packet 17 gram(s) 15 mL, Oral, BID potassium chloride (PMX) 20 mEq/100 mL 20 mEq 100 mL, IV Piggyback, AsDirected potassium chloride 20 mEq ER tablet 20 mEq 1 tab(s), Oral, AsDirected potassium chloride 20 mEq ER tablet 40 mEq 2 tab(s), Oral, AsDirected potassium chloride 20 mEq ER tablet 40 mEq 2 tab(s), Oral, AsDirected Lab Results 04/12 10:05 WBC: 4.5 Hgb: 14.0 Hct: 42.3 Platelet: 176 Neutrophil %: 57.8 Glucose Level: 87 Sodium Level: 137 Potassium Level: 4.0 BUN: 22.0 Creatinine Lvl (s): 1.19 04/11 03:15 WBC: 7.2 Hgb: 13.6 Hct: 40.1 Platelet: 184 Neutrophil %: 73.7 Glucose Level: 149 H Sodium Level: 139 Potassium Level: 3.8 BUN: 17.0 Creatinine Lvl (s): 0.92 EKG EKG - Completed -- 04/10/23 19:34:00 EST EKG - Completed -- 04/10/23 23:59:00 EST, Unless 2 EKGs already done in the past 6 hours Assessment/Plan 1. NSTEMI 2. Atrial fibrillation 3. Suspected heart failure exacerbation 4. Constipation 5. IDDM 6. Anxiety/depression 7. Bipolar disorder 8. Cognitive impairment 9. Other history of SSS s/p pacer, GERD, HTN, HLD, obesity Plan Continue management per primary team regarding NSTEMI, patient is being treated with heparin by weight EP following for atrial fibrillation, Patient was previously on sotalol however this was stopped due to heart failure. Patient on amiodarone drip. Planning for cardioversion tomorrow. Echo showed an EF of 30%. A moderate size echodensity was noted in the RV apex, suggesting a VICTOR MANUEL. Cardiology started IV Lasix 60 mg every 12 hours. VICTOR MANUEL and heart cath ordered for tomorrow. Constipation resolved, continue with bowel regimen. ID following for concern for bilateral lower leg cellulitis, this appears more chronic. Clindamycinwas discontinued. Doppler's of lower extremity were negative for DVT. Arterial Doppler showed normal arterial disease. Blood sugars reviewed and are at goal. A1c 9.9. Previous A1c from September 2022 was 11.8. Will continuewith current management. Patient is on 20 units of long- acting insulin daily and 5units prandial insulin. Continue with ADA diet, prandial 5units, sliding scale insulin and 15 units of Lantus as blood sugars are controlled. Can consider uptitrating Lantus to 20 units if hyperglycemia is noted. Continue mirtazapine for anxiety/depression, bipolar disorder. Patient states her PCP manages this. Patient has had ongoing cognitive impairment, she follows with her PCP in the outpatient setting. She has been referred to Dr. Marina. PCP suspects developing dementia. They are in the process of attempting to set patient up with a assisted living. Primary team can consider PT OT consult during hospitalization. Continue remainder of Management per primary team Heparin by weight for DVT prophylaxis Plan discussed with patient. Patient stable from a medical standpoint. Hospitalist will sign off, please call with questions. Case discussed with Dr. Quintanilla Total time spent reviewing labs, diagnostics, evaluating the patient, and medical decision makin minutes Digitally Signed by AMERICA HSU on 04/12/2023 01:58 PM [id number] Note Date of Service 04/12/23 Chief Complaint intermittent sob Subjective 72-year-old female with past medical history of hypertension, hyperlipidemia, atrial fibrillation on warfarin, sick sinus syndrome status post pacemaker, insulin-dependent diabetes, neuropathy, GERD,bipolar disorder, anxiety, depression, cognitive impairment and obesity. [facility] Patient initially presented to the ER for shortness of breath, abdominal pain, lower extremity pain and weight gain. Workup at outside hospital showed an elevated troponin of 1400. Chest x- ray showed vascular congestion. CTA showed vascular congestion, no evidence of PE. CT of abdomen pelvis showed a large stool burden. EKG read atrial flutter. Patient was placed on heparin by weight. Echocardiogram is pending. EP was consulted for persistent atrial fibrillation and initiated amiodarone. Hospitalist team was consulted for medical management. Patient seen today sitting in the chair. She states she is feeling better today. She continues to have intermittent shortness of breath at times. No chest pain or abdominal pain. No nausea or vomiting. She was eating lunch without issues. Objective Vitals and Measurements T: 36.6 C (Oral) TMIN: 36.2 C (Oral) TMAX: 36.6 C (Oral) HR: 77(Monitored) RR: 20 BP: 144/96 SpO2: 95% Intake and Output 7AM Yesterday to 7AM Today Intake and Output (Last 24 hours) Intake Oral Intake 720.00 Administration Information 570.77 Output Urine Voided 500.00 Stool Count 1.00 Urine Count 4.00 Diaper Count 5.00 Total Summary Total Intake 1290.77 Total Output 500.00 Fluid Balance 790.77 Physical Exam General: No acute distress. Alert and Appropriate Skin: No rash. Warm, Dry, BLE discoloration HEENT: Head is normocephalic and atraumatic. No lesions. Pupils equal in size. Extraocular movements within normal limits. Nose: No septal deviation. Mouth: Oropharynx mucosa is without lesion. Neck: Supple. No lymphadenopathy, thyromegaly noted. Lungs: Bilaterally clear/diminished breath sounds with no crepitation or wheeze. Unlabored on room air Cardiovascular: Heart is irregular rhythm, No extra-audible heart tones Abdomen: Abdomen is soft, nontender. Bowel sounds positive all four quadrants. Extremities: No clubbing, cyanosis or edema. Peripheral and distal pulses palpable. No calf tenderness. Adequate peripheral circulation. Neurological: The patient is awake, Following simple commands, moving all extremities. Weight Dosing Weight: 100.4 kg (04/10/23) Medications Medications (33) Active Scheduled: (17) aspirin 81 mg EC 81 mg 1 tab(s), Oral, qDayM atorvastatin 40 mg tablet 40 mg 1 tab(s), Oral, qDay bisacodyl 5 mg EC tablet 10 mg 2 tab(s), Oral, qDay cholecalciferol 125 mcg capsule (Vit D3 5000 unit(s)) 125 mcg 1 cap(s), Oral, qDay docusate-senna (Senokot S) 50 mg-8.6 mg Tablet 1 tab(s), Oral, BID furosemide 20 mg/2 mL vial 60 mg 6 mL, IV Push, BID insulin glargine 15 unit(s) 0.15 mL, Subcutaneous (INT), acBreakfast insulin lispro 100 units/mL Soln (3 mL) 5 unit(s) 0.05 mL, Subcutaneous, with breakfast insulin lispro 100 units/mL Soln (3 mL) 5 unit(s) 0.05 mL, Subcutaneous, with lunch insulin lispro 100 units/mL Soln (3 mL) 5 unit(s) 0.05 mL, Subcutaneous, with supper insulin lispro 100 units/mL Soln (3 mL) Give 0-10 units/dose, Subcutaneous, TIDAC losartan 25 mg tablet 25 mg 1 tab(s), Oral, qDay metoprolol succinate 25 mg ER tablet 25 mg 1 tab(s), Oral, qDayM metoprolol tartrate 25 mg tablet 25 mg 1 tab(s), Oral, Once miconazole topical 2% Powder 1 krishna, Topical, BID mirtazapine 15 mg tablet 30 mg 2 tab(s), Oral, qHS polyethylene glycol 3350 - UD packet 17 gram(s) 15 mL, Oral, qDay Continuous: (2) amiodarone 450 mg [1 mg/min] + sodium chloride FAY 250 mL 250 mL, Intravenous, 33.33 mL/hr heparin 25,000 unit(s) [1000 unit(s)/hr] + Dextrose 5% Premix Diluent 250 mL 250 mL, Intravenous, 10 mL/hr PRN: (14) acetaminophen 325 mg Tablet 650 mg 2 tab(s), Oral, q4h dextrose 50% Solution Disp syringe 50 mL 12.5 gram(s) 25 mL, IV Push, AsDirected heparin 5,000 units/mL (1 mL) vial 4,000 unit(s) 0.8 mL, IV Push, q6h loratadine 10 mg Tablet 10 mg 1 tab(s), Oral, BID magnesium sulfate 4 gram(s)/100mL PMX 4 g 100 mL, IV Piggyback, AsDirected magnesium sulfate 50% (500mg/mL) 6 g 12 mL, IV Piggyback, AsDirected magnesium sulfate PMX 2 g 50 mL, IV Piggyback, AsDirected nitroglycerin 0.4 mg Tablet (25/btl) 0.4 mg 1 tab(s), Sublingual, q5min ondansetron 4 mg tablet 4 mg 1 tab(s), Oral, q8h polyethylene glycol 3350 - UD packet 17 gram(s) 15 mL, Oral, BID potassium chloride (PMX) 20 mEq/100 mL 20 mEq 100 mL, IV Piggyback, AsDirected potassium chloride 20 mEq ER tablet 20 mEq 1 tab(s), Oral, AsDirected potassium chloride 20 mEq ER tablet 40 mEq 2 tab(s), Oral, AsDirected potassium chloride 20 mEq ER tablet 40 mEq 2 tab(s), Oral, AsDirected Lab Results 04/12 10:05 WBC: 4.5 Hgb: 14.0 Hct: 42.3 Platelet: 176 Neutrophil %: 57.8 Glucose Level: 87 Sodium Level: 137 Potassium Level: 4.0 BUN: 22.0 Creatinine Lvl (s): 1.19 04/11 03:15 WBC: 7.2 Hgb: 13.6 Hct: 40.1 Platelet: 184 Neutrophil %: 73.7 Glucose Level: 149 H Sodium Level: 139 Potassium Level: 3.8 BUN: 17.0 Creatinine Lvl (s): 0.92 EKG EKG - Completed -- 04/10/23 19:34:00 EST EKG - Completed -- 04/10/23 23:59:00 EST, Unless 2 EKGs already done in the past 6 hours Assessment/Plan 1. NSTEMI 2. Atrial fibrillation 3. Suspected heart failure exacerbation 4. Constipation 5. IDDM 6. Anxiety/depression 7. Bipolar disorder 8. Cognitive impairment 9. Other history of SSS s/p pacer, GERD, HTN, HLD, obesity Plan Continue management per primary team regarding NSTEMI, patient is being treated with heparin by weight EP following for atrial fibrillation, Patient was previously on sotalol however this was stopped due to heart failure. Patient on amiodarone drip. Planning for cardioversion tomorrow. Echo showed an EF of 30%. A moderate size echodensity was noted in the RV apex, suggesting a VICTOR MANUEL. Cardiology started IV Lasix 60 mg every 12 hours. VICTOR MANUEL and heart cath ordered for tomorrow. Constipation resolved, continue with bowel regimen. ID following for concern for bilateral lower leg cellulitis, this appears more chronic. Clindamycinwas discontinued. Doppler's of lower extremity were negative for DVT. Arterial Doppler showed normal arterial disease. Blood sugars reviewed and are at goal. A1c 9.9. Previous A1c from September 2022 was 11.8. Will continuewith current management. Patient is on 20 units of long- acting insulin daily and 5units prandial insulin. Continue with ADA diet, prandial 5units, sliding scale insulin and 15 units of Lantus as blood sugars are controlled. Can consider uptitrating Lantus to 20 units if hyperglycemia is noted. Continue mirtazapine for anxiety/depression, bipolar disorder. Patient states her PCP manages this. Patient has had ongoing cognitive impairment, she follows with her PCP in the outpatient setting. She has been referred to Dr. Marina. PCP suspects developing dementia. They are in the process of attempting to set patient up with a assisted living. Primary team can consider PT OT consult during hospitalization. Continue remainder of Management per primary team Heparin by weight for DVT prophylaxis Plan discussed with patient. Patient stable from a medical standpoint. Hospitalist will sign off, please call with questions. Case discussed with Dr. Quintanilla Total time spent reviewing labs, diagnostics, evaluating the patient, and medical decision makin minutes Digitally Signed by AMERICA HSU on 04/12/2023 01:58 PM [id number]* Exam Date Time Procedure Performing Provider Status 04/12/23 11:13 AM Echocardiogram, Adult - CV Auth (Verified) [facility] 01-22-2024 Note* Exam Date Time Procedure Performing Provider Status 04/11/23 2:06 PM VL Arterial Dopplers Both Legs Rest/PVR- Auth (Verified) [facility] 01-22-2024 Evaluation + Plan noteExtracted from: Title:History and Physical Author:ARTEM STAFFORD MD Date:04/11/23 #Atrial flutter with RVR, no w rate controlled #Persistent atrial fibrillation/atrial flutter - [id number] 5 points #Sick sinus syndrome status post Medtronic dual-chamber permanent pacemaker - Snowboard Designer: Dr. Hamlin Plan: - Anticoagulation: Ordered IV heparin drip - Rhythm control: Canceled Sotalol 80 mg daily, Ordered IV amiodarone drip - Rate control: Metoprolol tartrate 25 mg daily - DCCV can be considered in the future when medically stable - Consulted electrophysiology, appreciate recommendations #Dyspnea #Abdominal pain #Lower extremity pain and swelling #Weight gain #New onset HFpEF exacerbation #Troponin elevation type I versus type II OR #Bilateral lower extremity cellulitis? #Hypertension #Hyperlipidemia #Type 2 diabetes #Diabetic peripheral neuropathy #Dementia, unspecified? - CVC: Cecilio Fox - Latest EKG reviewed - Latest imaging reviewed - Latest echocardiogram reviewed Plan: - Ordered TTE - Ordered lower extremity venous and arterial imaging - Salt/Water restriction (<2g/d, <2L/d respectively), daily weight, strict I+Os - Monitor & replace electrolytes as needed, goal K >4 mEq/L, Mg >2 mg/dL - Inpatient CHF regimen ACEi/ARB/ARNI : Losartan 25 mg daily After/Pre: None BBlockade: Metoprolol tartrate 25 mg daily Coronary: Ordered aspirin 81 mg daily, Ordered atorvastatin 40 mg daily Diuretic: Ordered IV Lasix 40 mg twice daily MRAntag: None SGLT2: None Others: None Device: PPM Advanced Therapies: None - Ordered IV heparin drip - Further ischemic workup can be considered in the future when medically stable - Consulted infectious disease, appreciate recommendations - Consulted hospitalist, appreciate recommendations Patient to be seen and discussed with Dr. Tip Stafford II, MD PGY-V Cardiovascular Disease Fellow Pager: [phone] Addendum by JANICE MORROW MD on April 11, 2023 09:14:26 EST I have personally seen, examined, and evaluated the patient on the encounter date. I have reviewed the fellow s documentation and agree with the fellow s findings and plan as documented, unless otherwise stated. Future Appointments Appointment Date:04/21/2023 02:15:00 PM Scheduled Provider: [facility] Hospital Follow Up Appointment Date:05/26/2023 02:00:00 PM Scheduled Provider:LEILA GARCIA Location:[facility] Appointment Type:CV OV Appointment Date:06/22/2023 03:00:00 PM Scheduled Provider: Location:[facility] Appointment Type:CV Remote Procedure Appointment Date:03/22/2024 03:15:00 PM Scheduled Provider: Location:[facility] Appointment Type:CV Office Procedure PPM Appointment Date:03/22/2024 03:30:00 PM Scheduled Provider: Location:[facility] Appointment Type:CV OV Future Scheduled Tests Laboratory* Urinalysis 03/07/23 * Complete Blood Count 04/06/23 * Prothrombin Time - Panel 04/06/23 * Prothrombin Time - Panel 03/02/23 * Sedimentation Rate Automated 04/06/23 * Complete Metabolic Panel 04/06/23 * N-Terminal proBNP 04/06/23 [facility] 01-22-2024 Note Date of Service 04/11/23 Reason for Consultation medical management Referring Physician Dr Steen History of Present Illness 72-year-old female with past medical history of hypertension, hyperlipidemia, atrial fibrillation on warfarin, sick sinus syndrome status post pacemaker, insulin-dependent diabetes, neuropathy, GERD,bipolar disorder, anxiety, depression, cognitive impairment and obesity. Patient was transferred to [facility] on 04/10/2023 under cardiology services. Patient initially presented to the ER forshortness of breath, abdominal pain, lower extremity pain and weight gain. Workup at outside hospital showed an elevated troponin of 1400. Chest x-ray showed vascular congestion. CTA showed vascular congestion, no evidence of PE. CT of abdomen pelvis showed a large stool burden. EKG read atrial flutter. Patient was placed on heparin by weight. Echocardiogram is pending. EP was consulted for persistent atrial fibrillation and initiated amiodarone. Hospitalist team was consulted for medical management. Patient states she has a longstanding history of diabetes. She states she is on insulin and tries to take this daily. Patient is unsure of her last A1c. Patient states she has a history of bipolar, anxiety and depression. She is on mirtazapine for this. Patient has had ongoing memory impairment, per PCPs notes they suspect possibly developing dementia. APS has been involved and they are attempting to place patient in assisted living. Patient was seen today. She was sitting in the chair. She complains of some pain to her chest. She denied shortness of breath. Patient complains of abdominal discomfort, she states she has not had a bowel movement for 5 days. She has intermittent nausea however no vomiting. No dizziness or lightheadedness. Review of Systems Aside from what is mentioned in the HPI, there were no other pertinent positives in the patient's review of systems. Physical Exam Vitals and Measurements T: 36.7 C (Oral) TMIN: 36.4 C (Oral) TMAX: 37.0 C (Oral) HR: 70(Monitored) RR: 18 BP: 178/90 SpO2: 98% HT: 170.2 cm WT: 100.4 kg BMI: 34.66 Weight Dosing Weight: 100.4 kg (04/10/23) Physical Exam General: No acute distress. Alert and Appropriate Skin: No rash. Warm, Dry, BLE discoloration HEENT: Head is normocephalic and atraumatic. No lesions. Pupils equal in size. Extraocular movements within normal limits. Nose: No septal deviation. Mouth: Oropharynx mucosa is without lesion. Neck: Supple. No lymphadenopathy, thyromegaly noted. Lungs: Bilaterally clear/diminished breath sounds with no crepitation or wheeze. Unlabored on room air Cardiovascular: Heart is irregular rhythm, No extra-audible heart tones Abdomen: Abdomen is soft, nontender. Bowel sounds positive all four quadrants. Extremities: No clubbing, cyanosis or edema. Peripheral and distal pulses palpable. No calf tenderness. Adequate peripheral circulation. Neurological: The patient is awake, Following simple commands, moving all extremities. Lab Results 04/11 03:15 WBC: 7.2 Hgb: 13.6 Hct: 40.1 Platelet: 184 Neutrophil %: 73.7 Glucose Level: 149 H Sodium Level: 139 Potassium Level: 3.8 BUN: 17.0 Creatinine Lvl (s): 0.92 04/10 21:29 WBC: 5.2 Hgb: 13.5 Hct: 40.7 Platelet: 183 Neutrophil %: 64.9 Protime: 14.4 H PT International Ratio: 1.3 Glucose Level: 219 H Sodium Level: 132 L Potassium Level: 4.0 BUN: 13.0 Creatinine Lvl (s): 0.87 Imaging Results and Diagnostics XR Chest 1 View Result Date: April 10, 2023 Verified By: LOUIE COBB, EDUARDO Wright CLINICAL STATEMENT: IMPRESSION: Cardiomegaly with vascular congestion and right perihilar, bilateralinterstitial/hazy airspace opacities may suggest pulmonary edema. Atypicalpneumonia is in differential. Small bilateralpleural effusions with adjacent basilar airspace diseaseand/or atelectasis. I have personally reviewed the images of this examination, and agree with theresident's findings and interpretation. Assessment/Plan 1. NSTEMI 2. Atrial fibrillation 3. Suspected heart failure exacerbation 4. Constipation 5. IDDM 6. Anxiety/depression 7. Bipolar disorder 8. Cognitive impairment 9. Other history of SSS s/p pacer, GERD, HTN, HLD, obesity Plan Continue management per primary team regarding NSTEMI, patient is being treated with heparin by weight. Most recent troponin 4390 EP following for atrial fibrillation, Patient was previously on sotalol however this was stopped due to heart failure. Patient is now being treated with amiodarone. EP planning for possible cardioversion later this week. Echo is pending, continue diuresis per primary team Patient complains of constipation, she has not had a bowel movement for [address] of abdomen pelvis showed significant stool burden. Will start patient on MiraLAX and give a dose of Dulcolax. Patient has bilateral lower leg discoloration. Primary team has consulted ID for concern for cellulitis. Patient is afebrile without leukocytosis. Leg coloring appears more chronic. Patient being treated with clindamycin per primary team, ID consulted for further input. Doppler of BLE and arterial Doppler's are pending Blood sugars reviewed and are at goal this morning. A1c collected was 9.9. Previous A1c from September 2022 was 11.8. Will continue with current management. Patient is on 20 units of long-acting insulin daily and 5units prandial insulin. Continue with ADA diet, prandial 5units, sliding scale insulin and 15 units of Lantus as blood sugars are controlled. Can consider uptitrating Lantus to 20 units if hyperglycemia is noted. Continue mirtazapine for anxiety/depression, bipolar disorder. Patient states her PCP manages this. Patient has had ongoing cognitive impairment, she follows with her PCP in the outpatient setting. She has been referred to Dr. Marina. PCP suspects developing dementia. They are in the process of attempting to set patient up with a assisted living. Primary team can consider PT OT consult during hospitalization. Continue remainder of Management per primary team Heparin by weight for DVT prophylaxis Plan discussed with patient. Thank you for this consult- Hospitalist will follow. Case discussed with Dr. Fan Total time spent reviewing labs, diagnostics, evaluating the patient, and medical decision makin minutes Problem List/Past Medical History Ongoing Anxiety Atrial fibrillation Bipolar disorder Chest pain Chronic left hip pain Chronic lumbar pain Chronic nausea Chronic urticaria Depression Diabetes mellitus type 2, insulin dependent Diabetic polyneuropathy Dizziness Dyspnea Edema of both lower extremities GERD - Gastro-esophageal reflux disease HTN (hypertension) Hypercholesterolemia Long-term (current) use of anticoagulants, INR goal 2.0-3.0 Mental status alteration MVP (mitral valve prolapse) Nocturnal hypoxia On continuous oral anticoagulation Organic sleep apnea Osteoarthritis of knees, bilateral Pacemaker SSS (sick sinus syndrome) Suicide ideation Supplemental oxygen dependent Tachy-josé luis syndrome Historical Pneumonia Rib pain on left side UTI (urinary tract infection) Procedure/Surgical History UPPER BACK WOUND DEBRIDEMENT AND WOUND VAC CHANGE, with sharp, blunt and electrocautery debridementdown to muscle 14x9x2.5 with tunneling 2cm upper left: 10/05/22 Wound Debridement with Application of Wo, DRAINAGE OF BACK ABSCESS. PLACEMENT OF WOUND VAC greater than 50 cm , sharp excisional debridement: 10/03/22 Cardiac pacemaker: 03/18/21 EKG findin11/13/19 Echocardiogram: 10/29/19 EKG findin10/29/19 Cataract: 09/2019 Cardiac catheterization: 03/09/16 Echocardiogram: 02/13/16 Biopsy of bladder: 01/2016 Cardiovascular stress testin09/08/15 Endoscopy: 02/21/91 Endoscopy: 12/06/88 Endoscopy: 07/22/86 Arm Surgery: 1985 Hysterectomy: 1982 section: 1982 Biopsy of breast Cholecystectomy Radical mastectomy Cholecystectomy Appendectomy Dilation and curettage Transesophageal echocardiogram Medications Inpatient acetaminophen, 650 mg= 2 tab(s), Oral, q4h, PRN Amiodarone for IV 450 mg [0.5 mg/min] + NS 250 mL Amiodarone for IV 450 mg [1 mg/min] + NS 250 mL clindamycin, 450 mg= 3 cap(s), Oral, q8h Dextrose 50% IV Push, 12.5 gram(s)= 25 mL, IV Push, AsDirected, PRN docusate-senna 50 mg-8.6 mg oral tablet, 1 tab(s), Oral, BID Dulcolax Laxative, 10 mg= 2 tab(s), Oral, qDay Ecotrin, 81 mg= 1 tab(s), Oral, qDayM Heparin for IV 25,000 unit(s) [1000 unit(s)/hr] + Dextrose 5% Premix Diluent 250 mL Heparin HBW CARDIAC Bolus 5000 units/mL, 4000 unit(s)= 0.8 mL, 60 unit(s)/kg, IV Push, q6h, PRN HumaLOG 100 units/mL subcutaneous solution, 5 unit(s)= 0.05 mL, Subcutaneous, with breakfast HumaLOG 100 units/mL subcutaneous solution, 5 unit(s)= 0.05 mL, Subcutaneous, with lunch HumaLOG 100 units/mL subcutaneous solution, 5 unit(s)= 0.05 mL, Subcutaneous, with supper HumaLOG 100 units/mL subcutaneous solution, Give 0-10 units/dose, Subcutaneous, TIDAC Lantus, 15 unit(s)= 0.15 mL, Subcutaneous (INT), acBreakfast Lipitor, 40 mg= 1 tab(s), Oral, qDay loratadine, 10 mg= 1 tab(s), Oral, BID, PRN losartan, 25 mg= 1 tab(s), Oral, qDay magnesium sulfate for IV bolus, 2 gram(s)= 50 mL, IV Piggyback, AsDirected, PRN magnesium sulfate for IV bolus, 4 gram(s)= 100 mL, IV Piggyback, AsDirected, PRN magnesium sulfate for IV bolus Metoprolol Tartrate 25 mg oral tablet, 25 mg= 1 tab(s), Oral, Daily miconazole 2% topical powder, 1 krishna, Topical, BID Miralax Powder Packet, 17 gram(s)= 15 mL, Oral, BID, PRN Miralax Powder Packet, 17 gram(s)= 15 mL, Oral, qDay mirtazapine, 30 mg= 2 tab(s), Oral, qHS nitroglycerin 0.4 mg sublingual tablet, 0.4 mg= 1 tab(s), Sublingual, q5min, PRN ondansetron, 4 mg= 1 tab(s), Oral, q8h, PRN potassium chloride, 20 mEq= 1 tab(s), Oral, AsDirected, PRN potassium chloride, 40 mEq= 2 tab(s), Oral, AsDirected, PRN potassium chloride, 40 mEq= 2 tab(s), Oral, AsDirected, PRN potassium chloride bolus, 20 mEq= 100 mL, IV Piggyback, AsDirected, PRN Vitamin D3 125 mcg (5000 intl units) oral capsule, 125 mcg= 1 cap(s), Oral, qDay Home acetaminophen, 650 mg= 2 tab(s), Oral, q4h, PRN acetaminophen-hydrocodone 325 mg-7.5 mg oral tablet, 1 tab(s), Oral, q4h, PRN atorvastatin 20 mg oral tablet, 20 mg= 1 tab(s), Oral, qDay Blood Glucose Test Machine, See Instructions Blood Glucose Test Strips, See Instructions, 3 refills clindamycin 150 mg oral capsule, 450 mg= 3 cap(s), Oral, q8h DME MISCellaneous, See Instructions furosemide 40 mg oral tablet, 40 mg= 1 tab(s), Oral, qDay insulin glargine-yfgn 100 units/mL subcutaneous solution, 20, Subcutaneous, qDay Lancets, See Instructions, 3 refills Lasix 40 mg oral tablet, 40 mg= 1 tab(s), Oral, BID, 1 refills Lopressor 25mg--USE metoprolol tartrate 25 mg oral tablet, 25 mg= 1 tab(s), Oral, Daily, 3 refills loratadine 10 mg oral tablet, 10 mg= 1 tab(s), Oral, BID, PRN, 3 refills losartan 25 mg oral tablet, 25 mg= 1 tab(s), Oral, qDay, 3 refills miconazole 2% topical powder, 1 krishna, Topical, BID mirtazapine 30 mg oral tablet, 30 mg= 1 tab(s), Oral, qHS, 2 refills NovoLOG FlexPen 100 units/mL injectable solution, 5 unit(s), Subcutaneous, TIDAC, 3 refills ondansetron 4 mg oral tablet, 4 mg= 1 tab(s), Oral, q8h, PRN sotalol 80 mg oral tablet, 80 mg= 1 tab(s), Oral, qHS, 3 refills Vitamin D3 125 mcg (5000 intl units) oral capsule, 125 mcg= 1 cap(s), Oral, qDay warfarin 5 mg oral tablet, 5 mg= 1 tab(s), Oral, qDay, 1 refills Allergies Bystolic (Irregular heart beat) Cardizem (Dizziness) Tenormin (Bradycardia) Zebeta (Unknown) biaxin (GI upset) cipro glucaphage penicillin vancomycin Social History Smoking Status - 11/03/2015 Never smoker Alcohol Use: Past., 10/20/2022 Employment/School Status: Retired., 07/03/2019 Exercise Home/Environment Domestic Concerns: None., 02/23/2019 Nutrition/Health Caffeine intake amount: coffee, 1 serving daily., 10/16/2018 Substance Abuse Use: Never., 10/16/2018 Tobacco Tobacco Use: Former smoker, quit more than 30 days ago., 10/16/2018 Family History Breast cancer: Mother. Diabetes: Mother and Brother. Glioblastoma: Mother. Heart attack: Mother. Hypertension: Mother, Father and Brother. Stroke: Father. Immunizations SARS-CoV-2 (COVID-19) mRNA-1273 vaccine: 0 unknown unit (05/01/20) tetanus/diphth/pertuss (Tdap) adult/adol: 0.5 unknown unit (09/30/22) tetanus/diphth/pertuss (Tdap) adult/adol: 0.5 unknown unit (05/28/19) Digitally Signed by AMERICA HSU on 04/11/2023 11:50 AM [id number] Infectious disease Consult note Date of Service 04/11/2023 Reason for Consultation Antibiotic recommendations Referring Physician Dr Steen History of Present Illness This is a 72-year-old female with past medical history of hypertension, hyperlipidemia, recurrent atrial fibrillation on warfarin and sotalol, sick sinus syndrome status post Medtronic dual-chamber permanent pacemaker, type 2 diabetes, diabetic peripheral neuropathy, and memory impairment [facility] due to complaints of shortness of breath, abdominal pain, lower extremity pain, and weight gain. Patient states she has been having the symptoms ongoing forcouple of months and have been getting progressively worse. Patient states that when her son and daughter checked on her they brought her in to the hospital to be examined. Initial lab work showed elevated troponin to around 1400. Initial chest x-ray showed vascular congestion. Initial EKG showed new onset atrial flutter. Initial CT PE was negative for PE but showed vascular congestion. Initial CT abdomen pelvis was within normal limit but did show large stool burden. Patient was given aspirin a nd metoprolol and transferred to [facility] for further evaluation. Patient is admitted underthe cardiology service for new onset heart failure with preserved ejection fraction, atrial flutterwith RVR, and troponin elevated. ID has been consulted for antibiotic recommendations given the bilateral lower extremity swelling with concern of cellulitis. Review of Systems Shortness of breath is improving, lower extremities discomfort and swelling is present but improving Physical Exam Vitals and Measurements T: 36.7 C (Oral) TMIN: 36.4 C (Oral) TMAX: 37.0 C (Oral) HR: 70(Monitored) RR: 18 BP: 178/90 SpO2: 98% HT: 170.2 cm WT: 100.4 kg BMI: 34.66 Weight Dosing Weight: 100.4 kg (04/10/23) General Appearance: Awake, alert, and oriented HEENT: Normocephaly. PERRL Neck: Normal without lymphadenopathy Cardiac: Heart regular rhythm Lungs: Clear Abdomen: Soft, non-tender, non-distended Extremities:Warm with bilateral lower extremities chronic lymphedema and healed ulcers with no active purulence or erythema or deficits Neurological: No deficits Skin: Warm, dry, intact. No rashes Psychiatric: No abnormal behaviors Lab Results 04/11 03:15 WBC: 7.2 Hgb: 13.6 Hct: 40.1 Platelet: 184 Neutrophil %: 73.7 Glucose Level: 149 H Sodium Level: 139 Potassium Level: 3.8 BUN: 17.0 Creatinine Lvl (s): 0.92 04/10 21:29 WBC: 5.2 Hgb: 13.5 Hct: 40.7 Platelet: 183 Neutrophil %: 64.9 Protime: 14.4 H PT International Ratio: 1.3 Glucose Level: 219 H Sodium Level: 132 L Potassium Level: 4.0 BUN: 13.0 Creatinine Lvl (s): 0.87 Imaging Results and Diagnostics XR Chest 1 View Result Date: April 10, 2023 Verified By: LOUIE COBB, EDUARDO Wright CLINICAL STATEMENT: IMPRESSION: Cardiomegaly with vascular congestion and right perihilar, bilateralinterstitial/hazy airspace opacities may suggest pulmonary edema. Atypicalpneumonia is in differential. Small bilateralpleural effusions with adjacent basilar airspace diseaseand/or atelectasis. I have personally reviewed the images of this examination, and agree with theresident's findings and interpretation. Assessment/Plan Chronic urticaria Atrial flutter with RVR Atrial fibrillation New onset HFpEF exacerbation Troponin elevation DM type II with peripheral neuropathy Bilateral lower extremity cellulitis and swelling Multiple allergies Chronic venous stasis dermatitis of lower extremities This is a 72-year-old female with past medical history of hypertension, hyperlipidemia, recurrent atrial fibrillation on warfarin and sotalol, sick sinus syndrome status post Medtronic dual-chamber permanent pacemaker, type 2 diabetes, diabetic peripheral neuropathy, and memory impairment presentedto the emergency department at [facility] due to complaints of shortness of breath, abdominal pain, lower extremity pain, and weight gain. Patient states she has been having the symptoms ongoing forcouple of months and have been getting progressively worse. Patient states that when her son and daughter checked on her they brought her in to the hospital to be examined. Initial lab work showed elevated troponin to around 1400. Initial chest x-ray showed vascular congestion. Initial EKG showed new onset atrial flutter. Initial CT PE was negative for PE but showed vascular congestion. Initial CT abdomen pelvis was within normal limit but did show large stool burden. Patient was given aspirin a nd metoprolol and transferred to [facility] for further evaluation. Patient is admitted underthe cardiology service for new onset heart failure with preserved ejection fraction, atrial flutterwith RVR, and troponin elevated. ID has been consulted for antibiotic recommendations given the bilateral lower extremity swelling with concern of cellulitis. Patient has remained afebrile the past 24 hours. No leukocytosis. Chest x-ray revealed vascular congestion Venous Doppler studies to bilateral lower extremities are pending at this time Lower extremity examination revealed chronic venous stasis dermatitis with early lymphedema findings, acute findings of infection have improved and not present at this time, will stop clindamycin butrecommend to apply Des wraps and compression dressings and management for lower extremities edema to prevent further ulcer development, discussed the plan of care with patient and all questions were answered Thank you for this consultation, will follow as needed Call for questions I was present for Dominique Ruiz LPN , and personally directed, all components of the patient's complete evaluation and management documented by the scribe today. I have personally examined the patient and reviewed all diagnostic data. I have reviewed all of this documentation by the scribe. It documents the history obtained, examination performed, diagnostic testing results compiled by him/her,and discharge information. Problem List/Past Medical History Ongoing Anxiety Atrial fibrillation Bipolar disorder Chest pain Chronic left hip pain Chronic lumbar pain Chronic nausea Chronic urticaria Depression Diabetes mellitus type 2, insulin dependent Diabetic polyneuropathy Dizziness Dyspnea Edema of both lower extremities GERD - Gastro-esophageal reflux disease HTN (hypertension) Hypercholesterolemia Long-term (current) use of anticoagulants, INR goal 2.0-3.0 Mental status alteration MVP (mitral valve prolapse) Nocturnal hypoxia On continuous oral anticoagulation Organic sleep apnea Osteoarthritis of knees, bilateral Pacemaker SSS (sick sinus syndrome) Suicide ideation Supplemental oxygen dependent Tachy-josé luis syndrome Historical Pneumonia Rib pain on left side UTI (urinary tract infection) Procedure/Surgical History UPPER BACK WOUND DEBRIDEMENT AND WOUND VAC CHANGE, with sharp, blunt and electrocautery debridementdown to muscle 14x9x2.5 with tunneling 2cm upper left: 10/05/22 Wound Debridement with Application of Wo, DRAINAGE OF BACK ABSCESS. PLACEMENT OF WOUND VAC greater than 50 cm , sharp excisional debridement: 10/03/22 Cardiac pacemaker: 03/18/21 EKG findin11/13/19 Echocardiogram: 10/29/19 EKG findin10/29/19 Cataract: 09/2019 Cardiac catheterization: 03/09/16 Echocardiogram: 02/13/16 Biopsy of bladder: 01/2016 Cardiovascular stress testin09/08/15 Endoscopy: 02/21/91 Endoscopy: 12/06/88 Endoscopy: 07/22/86 Arm Surgery: 1985 Hysterectomy: 1982 section: 1982 Biopsy of breast Cholecystectomy Radical mastectomy Cholecystectomy Appendectomy Dilation and curettage Transesophageal echocardiogram Medications Inpatient acetaminophen, 650 mg= 2 tab(s), Oral, q4h, PRN Amiodarone for IV 450 mg [0.5 mg/min] + NS 250 mL Amiodarone for IV 450 mg [1 mg/min] + NS 250 mL clindamycin, 450 mg= 3 cap(s), Oral, q8h Dextrose 50% IV Push, 12.5 gram(s)= 25 mL, IV Push, AsDirected, PRN docusate-senna 50 mg-8.6 mg oral tablet, 1 tab(s), Oral, BID Ecotrin, 81 mg= 1 tab(s), Oral, qDayM Heparin for IV 25,000 unit(s) [1000 unit(s)/hr] + Dextrose 5% Premix Diluent 250 mL Heparin HBW CARDIAC Bolus 5000 units/mL, 4000 unit(s)= 0.8 mL, 60 unit(s)/kg, IV Push, q6h, PRN HumaLOG 100 units/mL subcutaneous solution, 5 unit(s)= 0.05 mL, Subcutaneous, with breakfast HumaLOG 100 units/mL subcutaneous solution, 5 unit(s)= 0.05 mL, Subcutaneous, with lunch HumaLOG 100 units/mL subcutaneous solution, 5 unit(s)= 0.05 mL, Subcutaneous, with supper HumaLOG 100 units/mL subcutaneous solution, Give 0-10 units/dose, Subcutaneous, TIDAC Lantus, 15 unit(s)= 0.15 mL, Subcutaneous (INT), acBreakfast Lipitor, 40 mg= 1 tab(s), Oral, qDay loratadine, 10 mg= 1 tab(s), Oral, BID, PRN losartan, 25 mg= 1 tab(s), Oral, qDay magnesium sulfate for IV bolus, 2 gram(s)= 50 mL, IV Piggyback, AsDirected, PRN magnesium sulfate for IV bolus, 4 gram(s)= 100 mL, IV Piggyback, AsDirected, PRN magnesium sulfate for IV bolus Metoprolol Tartrate 25 mg oral tablet, 25 mg= 1 tab(s), Oral, Daily miconazole 2% topical powder, 1 krishna, Topical, BID Miralax Powder Packet, 17 gram(s)= 15 mL, Oral, BID, PRN mirtazapine, 30 mg= 2 tab(s), Oral, qHS nitroglycerin 0.4 mg sublingual tablet, 0.4 mg= 1 tab(s), Sublingual, q5min, PRN ondansetron, 4 mg= 1 tab(s), Oral, q8h, PRN potassium chloride, 20 mEq= 1 tab(s), Oral, AsDirected, PRN potassium chloride, 40 mEq= 2 tab(s), Oral, AsDirected, PRN potassium chloride, 40 mEq= 2 tab(s), Oral, AsDirected, PRN potassium chloride bolus, 20 mEq= 100 mL, IV Piggyback, AsDirected, PRN Vitamin D3 125 mcg (5000 intl units) oral capsule, 125 mcg= 1 cap(s), Oral, qDay Home acetaminophen, 650 mg= 2 tab(s), Oral, q4h, PRN acetaminophen-hydrocodone 325 mg-7.5 mg oral tablet, 1 tab(s), Oral, q4h, PRN atorvastatin 20 mg oral tablet, 20 mg= 1 tab(s), Oral, qDay Blood Glucose Test Machine, See Instructions Blood Glucose Test Strips, See Instructions, 3 refills clindamycin 150 mg oral capsule, 450 mg= 3 cap(s), Oral, q8h DME MISCellaneous, See Instructions furosemide 40 mg oral tablet, 40 mg= 1 tab(s), Oral, qDay insulin glargine-yfgn 100 units/mL subcutaneous solution, 20, Subcutaneous, qDay Lancets, See Instructions, 3 refills Lasix 40 mg oral tablet, 40 mg= 1 tab(s), Oral, BID, 1 refills Lopressor 25mg--USE metoprolol tartrate 25 mg oral tablet, 25 mg= 1 tab(s), Oral, Daily, 3 refills loratadine 10 mg oral tablet, 10 mg= 1 tab(s), Oral, BID, PRN, 3 refills losartan 25 mg oral tablet, 25 mg= 1 tab(s), Oral, qDay, 3 refills miconazole 2% topical powder, 1 krishna, Topical, BID mirtazapine 30 mg oral tablet, 30 mg= 1 tab(s), Oral, qHS, 2 refills NovoLOG FlexPen 100 units/mL injectable solution, 5 unit(s), Subcutaneous, TIDAC, 3 refills ondansetron 4 mg oral tablet, 4 mg= 1 tab(s), Oral, q8h, PRN sotalol 80 mg oral tablet, 80 mg= 1 tab(s), Oral, qHS, 3 refills Vitamin D3 125 mcg (5000 intl units) oral capsule, 125 mcg= 1 cap(s), Oral, qDay warfarin 5 mg oral tablet, 5 mg= 1 tab(s), Oral, qDay, 1 refills Allergies Bystolic (Irregular heart beat) Cardizem (Dizziness) Tenormin (Bradycardia) Zebeta (Unknown) biaxin (GI upset) cipro glucaphage penicillin vancomycin Social History Smoking Status - 11/03/2015 Never smoker Alcohol Use: Past., 10/20/2022 Employment/School Status: Retired., 07/03/2019 Exercise Home/Environment Domestic Concerns: None., 02/23/2019 Nutrition/Health Caffeine intake amount: coffee, 1 serving daily., 10/16/2018 Substance Abuse Use: Never., 10/16/2018 Tobacco Tobacco Use: Former smoker, quit more than 30 days ago., 10/16/2018 Family History Breast cancer: Mother. Diabetes: Mother and Brother. Glioblastoma: Mother. Heart attack: Mother. Hypertension: Mother, Father and Brother. Stroke: Father. Immunizations SARS-CoV-2 (COVID-19) mRNA-1273 vaccine: 0 unknown unit (05/01/20) tetanus/diphth/pertuss (Tdap) adult/adol: 0.5 unknown unit (09/30/22) tetanus/diphth/pertuss (Tdap) adult/adol: 0.5 unknown unit (05/28/19) Digitally Signed by Dominique Ruiz Licensed Scribe on 04/11/2023 11:38 AM Digitally Signed by RYAN ALVARADO BA, MD on 04/11/2023 03:38 PM [id number] History and physical note Date of Service 04/10/23 Chief Complaint Shortness of breath, abdominal pain, lower extremity pain and weight gain History of Present Illness 72-year-old female with past medical history of hypertension, hyperlipidemia, recurrent atrial fibrillation on warfarin and sotalol, sick sinus syndrome status post Medtronic dual-chamber permanent pacemaker, type 2 diabetes, diabetic peripheral neuropathy, and memory impairment presented to the emergency department at [facility] due to complaints of shortness of breath, abdominal pain, lower extremity pain, and weight gain. Patient states she has been having the symptoms ongoing for couple ofmonths and have been getting progressively worse. Patient states that when her son and daughter checked on her they brought her in to the hospital to be examined. Initial lab work showed elevated troponin to around 1400. Initial chest x-ray showed vascular congestion. Initial EKG showed new onset atrial flutter. Initial CT PE was negative for PE but showed vascular congestion. Initial CT abdomen pelvis was within normal limit but did show large stool burden. Patient was given aspirin and metoprolol and transferred to [facility] for further evaluation. Patient is admitted under the cardiology service for new onset heart failure with preserved ejection fraction, atrial flutter with RVR,and troponin elevated. Review of Systems Per HPI, Complete ROS otherwise negative Physical Exam Vitals and Measurements T: 37.0 C (Oral) HR: 78(Monitored) RR: 19 BP: 168/102 SpO2: 93% HT: 170.2 cm WT: 100.4 kg BMI: 34.66 Weight Dosing Weight: 100.4 kg (04/10/23) General: AAOX2, mild distress, elderly disheveled obese female HEENT: Anicteric sclera, MMM Neck: Trachea midline, JVD appreciated CVS: RRR, normal S1/S2, no murmurs/rubs/gallops Lung: Crackles bilaterally, increased work of breathing Abd: Soft, NT/ND Extrem: WWP, 2+ LE edema Skin: Warm, excoriations on bilateral lower extremity Neuro: AAOX2 spontaneous movement of all extremities Psych: Appropriate mood & affect Lab Results No 36 Hour Lab Data Imaging Results and Diagnostics XR Chest 1 View Result Date: April 10, 2023 Verified By: LOUIE COBB, EDUARDO Wright CLINICAL STATEMENT: IMPRESSION: Cardiomegaly with vascular congestion and right perihilar, bilateralinterstitial/hazy airspace opacities may suggest pulmonary edema. Atypicalpneumonia is in differential. Small bilateralpleural effusions with adjacent basilar airspace diseaseand/or atelectasis. I have personally reviewed the images of this examination, and agree with theresident's findings and interpretation. Transthoracic Echocardiography Study date: 10/01/2022 Study Time: 08:48 PM Summary: 1. Left ventricle: The cavity size is normal. Wall thickness is mildly increased. Systolic functionis normal. The estimated ejection fraction is 55-60%. Wall motion is normal; there are no regional wall motion abnormalities. Unable to assess diastolic function. 2. Mitral valve: Not well visualized. 3. Left atrium: The atrium is mildly dilated. 4. Right ventricle: The RV systolic pressure by Doppler is 38 mm Hg. 5. Tricuspid valve: Not well visualized. There is mild-moderate regurgitation. 6. Right atrium: The estimated right atrial pressure is 15 mm Hg. Recommendations: No obvious vegetations seen, consider VICTOR MANUEL if clinically indicated. Study data: Patient unit: [facility]. Patient room number: 4632. Transthoracic echocardiography. M-mode, complete 2D, complete spectral Doppler, and color Doppler. Study status: Routine. Patient status: Inpatient. Objective: Bacteremia, hx of pacemaker. Location: Bedside. Procedure: Transthoracic echocardiography was performed for ventricular function evaluation. Image quality was suboptimal. The study was technically limited due to poor acoustic window availability, restricted patient mobility, breast implants, and body habitus. 3 ml of intravenous contrast (Definity) was administered to opacify the LV. Left ventricle: The cavity size is normal. Wall thickness is mildly increased. Systolic function isnormal. The estimated ejection fraction is 55-60%. Wall motion is normal; there are no regional wall motion abnormalities. The wall mass is 182 g. The wall mass index is 84 g/m . Unable to assess diastolic function. Left atrium: The atrium is mildly dilated. Right ventricle: The cavity size is normal. Systolic function is normal. The RV systolic pressure by Doppler is 38 mm Hg. Right atrium: Not well visualized. The atrium is normal in size. The estimated right atrial pressure is 15 mm Hg. Mitral valve: Not well visualized. No significant valve disease is observed. No evidence for prolapse. The pressure half- time is 75 ms. Doppler: There is no evidence for stenosis. There is trivial regurgitation. The meandiastolic gradient is 1 mm Hg. The valve area by pressure half-time is 2.9 cm . Aortic valve: Not well visualized. The valve is trileaflet. Doppler: There is no stenosis. There isno significant regurgitation. Tricuspid valve: Not well visualized. No significant valve disease is observed. The regurgitant peak velocity is 2.4 m/sec. Doppler: There is no evidence for stenosis. There is mild-moderate regurgitation. Pulmonic valve: Not well visualized. There is no significant valve disease. The peak systolic velocity is 0.85 m/sec. Doppler: There is no evidence for stenosis. There is trivial regurgitation. Aorta: Aortic root: The aortic root is normal. Systemic veins: Inferior vena cava: The IVC is dilated. Assessment/Plan #Atrial flutter with RVR, now rate controlled #Persistent atrial fibrillation/atrial flutter - [id number] 5 points #Sick sinus syndrome status post Medtronic dual-chamber permanent pacemaker - Snowboard Designer: Dr. Hamlin Plan: - Anticoagulation: Ordered IV heparin drip - Rhythm control: Canceled Sotalol 80 mg daily, Ordered IV amiodarone drip - Rate control: Metoprolol tartrate 25 mg daily - DCCV can be considered in the future when medically stable - Consulted electrophysiology, appreciate recommendations #Dyspnea #Abdominal pain #Lower extremity pain and swelling #Weight gain #New onset HFpEF exacerbation #Troponin elevation type I versus type II OR #Bilateral lower extremity cellulitis? #Hypertension #Hyperlipidemia #Type 2 diabetes #Diabetic peripheral neuropathy #Dementia, unspecified? - CVC: Cecilio Fox - Latest EKG reviewed - Latest imaging reviewed - Latest echocardiogram reviewed Plan: - Ordered TTE - Ordered lower extremity venous and arterial imaging - Salt/Water restriction (<2g/d, <2L/d respectively), daily weight, strict I+Os - Monitor & replace electrolytes as needed, goal K >4 mEq/L, Mg >2 mg/dL - Inpatient CHF regimen ACEi/ARB/ARNI: Losartan 25 mg daily After/Pre: None BBlockade: Metoprolol tartrate 25 mg daily Coronary: Ordered aspirin 81 mg daily, Ordered atorvastatin 40 mg daily Diuretic: Ordered IV Lasix 40 mg twice daily MRAntag: None SGLT2: None Others: None Device: PPM Advanced Therapies: None - Ordered IV heparin drip - Further ischemic workup can be considered in the future when medically stable - Consulted infectious disease, appreciate recommendations - Consulted hospitalist, appreciate recommendations Patient to be seen and discussed with Dr. Tip Stafford II, MD PGY-V Cardiovascular Disease Fellow Pager: [phone] Problem List/Past Medical History Ongoing Anxiety Atrial fibrillation Bipolar disorder Chest pain Chronic left hip pain Chronic lumbar pain Chronic nausea Chronic urticaria Depression Diabetes mellitus type 2, insulin dependent Diabetic polyneuropathy Dizziness Dyspnea Edema of both lower extremities GERD - Gastro-esophageal reflux disease HTN (hypertension) Hypercholesterolemia Long-term (current) use of anticoagulants, INR goal 2.0-3.0 Mental status alteration MVP (mitral valve prolapse) Nocturnal hypoxia On continuous oral anticoagulation Organic sleep apnea Osteoarthritis of knees, bilateral Pacemaker SSS (sick sinus syndrome) Suicide ideation Supplemental oxygen dependent Tachy-josé luis syndrome Historical Pneumonia Rib pain on left side UTI (urinary tract infection) Procedure/Surgical History UPPER BACK WOUND DEBRIDEMENT AND WOUND VAC CHANGE, with sharp, blunt and electrocautery debridementdown to muscle 14x9x2.5 with tunneling 2cm upper left: 10/05/22 Wound Debridement with Application of Wo, DRAINAGE OF BACK ABSCESS. PLACEMENT OF WOUND VAC greater than 50 cm , sharp excisional debridement: 10/03/22 Cardiac pacemaker: 03/18/21 EKG findin11/13/19 Echocardiogram: 10/29/19 EKG findin10/29/19 Cataract: 09/2019 Cardiac catheterization: 03/09/16 Echocardiogram: 02/13/16 Biopsy of bladder: 01/2016 Cardiovascular stress testin09/08/15 Endoscopy: 02/21/91 Endoscopy: 12/06/88 Endoscopy: 07/22/86 Arm Surgery: 1985 Hysterectomy: 1982 section: 1982 Biopsy of breast Cholecystectomy Radical mastectomy Cholecystectomy Appendectomy Dilation and curettage Transesophageal echocardiogram Medications Home Medications (21) Active acetaminophen 650 mg = 2 tab(s), PRN, Oral, q4h acetaminophen-hydrocodone 325 mg-7.5 mg oral tablet 1 tab(s), PRN, Oral, q4h atorvastatin 20 mg oral tablet 20 mg = 1 tab(s), Oral, qDay Blood Glucose Test Machine See Instructions Blood Glucose Test Strips See Instructions clindamycin 150 mg oral capsule 450 mg = 3 cap(s), Oral, q8h DME MISCellaneous See Instructions furosemide 40 mg oral tablet 40 mg = 1 tab(s), Oral, qDay insulin glargine-yfgn 100 units/mL subcutaneous solution 20, Subcutaneous, qDay Lancets See Instructions Lasix 40 mg oral tablet 40 mg = 1 tab(s), Oral, BID Lopressor 25mg--USE metoprolol tartrate 25 mg oral tablet 25 mg = 1 tab(s), Oral, Daily loratadine 10 mg oral tablet 10 mg = 1 tab(s), PRN, Oral, BID losartan 25 mg oral tablet 25 mg = 1 tab(s), Oral, qDay miconazole 2% topical powder 1 krishna, Topical, BID mirtazapine 30 mg oral tablet 30 mg = 1 tab(s), Oral, qHS NovoLOG FlexPen 100 units/mL injectable solution 5 unit(s), Subcutaneous, TIDAC ondansetron 4 mg oral tablet 4 mg = 1 tab(s), PRN, Oral, q8h sotalol 80 mg oral tablet 80 mg = 1 tab(s), Oral, qHS Vitamin D3 125 mcg (5000 intl units) oral capsule 125 mcg = 1 cap(s), Oral, qDay warfarin 5 mg oral tablet 5 mg = 1 tab(s), Oral, qDay Allergies Bystolic (Irregular heart beat) Cardizem (Dizziness) Tenormin (Bradycardia) Zebeta (Unknown) biaxin (GI upset) cipro glucaphage penicillin vancomycin Social History Smoking Status - 11/03/2015 Never smoker Alcohol Use: Past., 10/20/2022 Employment/School Status: Retired., 07/03/2019 Exercise Home/Environment Domestic Concerns: None., 02/23/2019 Nutrition/Health Caffeine intake amount: coffee, 1 serving daily., 10/16/2018 Substance Abuse Use: Never., 10/16/2018 Tobacco Tobacco Use: Former smoker, quit more than 30 days ago., 10/16/2018 Family History Breast cancer: Mother. Diabetes: Mother and Brother. Glioblastoma: Mother. Heart attack: Mother. Hypertension: Mother, Father and Brother. Stroke: Father. Immunizations SARS-CoV-2 (COVID-19) mRNA-1273 vaccine: 0 unknown unit (05/01/20) tetanus/diphth/pertuss (Tdap) adult/adol: 0.5 unknown unit (09/30/22) tetanus/diphth/pertuss (Tdap) adult/adol: 0.5 unknown unit (05/28/19) Code Status Code Status - Ordered -- 04/10/23 20:59:00 EST, Full Code, Constant Order Digitally Signed by BABATUNDE STAFFORD MD on 04/11/2023 02:04 AM Digitally Signed by BABATUNDE STAFFORD MD on 04/11/2023 02:05 AM Digitally Signed by BABATUNDE STAFFORD MD on 04/11/2023 06:50 AM Digitally Signed by BABATUNDE STAFFORD MD on 04/11/2023 08:15 AM [id number] Cardiology Consult note Date of Service 04/11/2023 Reason for Consultation Atrial fibrillation management Referring Physician General cardiology, staff TBD History of Present Illness 72-year-old with longstanding persistent atrial fibrillation, sinus bradycardia s/p DDD-PPM on 03/18/2021 (Medtronic), hide ventricular pacing 60%, CHF, chronic venous stasis, subtherapeutic INR, HTN, HLP, GERD, diabetes, dizziness, bipolar, and other problems who EP is now consulted for atrial fibrillation management in setting of CHF. Patient has had couple months of swelling, fluid retention, dyspnea. She states her PCP was try to manage this, but ultimately she did not get better, and is now hospitalized. Her INR is 1.3. She wason sotalol at home, which is now discontinued. Review of Systems Constitutional Symptoms: Denies weight loss/gain, fever/chills, or sweats Integumentary: Denies color changes, rash, sores, or lumps Eyes: Denies vision changes, blurriness, or pain ENT: Denies epistaxis, sore throat, or dysphagia Cardiovascular: See HPI Respiratory: Denies cough, sputum, or hemoptysis Musculoskeletal: Denies new pain, weakness, or swelling Gastrointestinal: Denies nausea, vomiting, GERD, diarrhea, constipation, abdominal pain, or hematemesis Neurological: Denies seizures, coordination issues, or paralysis Genitourinary: Denies dysuria, hematuria, burning, or renal stones Hematologic/Lymphatic: Denies bleeding disorders, night sweats, or tenderness of lymph nodes Psychiatric: Denies recent anxiety or depressive episodes. Physical Exam Vitals and Measurements T: 36.7 C (Oral) TMIN: 36.4 C (Oral) TMAX: 37.0 C (Oral) HR: 70(Apical) RR: 18 BP: 180/97 SpO2: 98%HT: 170.2 cm WT: 100.4 kg BMI: 34.66 Weight Dosing Weight: 100.4 kg (04/10/23) General Appearance: Alert and oriented x3, no apparent distress Head: Normocephalic, atraumatic EENT: EOMI, PERRLA, mucous membranes moist Neck: Supple, no thyromegaly. Cardiac: irregular, no sig mrg. Lungs: Clear to auscultation bilaterally, no wheezing, rales, rhonchi. Abdomen: Nondistended, nontender, bowel sounds present. Musculoskeletal: No gross deformities. Extremities: no significant lower extremity edema, no calf tenderness, pedal pulses are present bilaterally Neurological: No focal deficits Skin: Warm, dry, intact Psychiatric: Mood congruent, cooperative Lab Results 04/11 03:15 WBC: 7.2 Hgb: 13.6 Hct: 40.1 Platelet: 184 Neutrophil %: 73.7 Glucose Level: 149 H Sodium Level: 139 Potassium Level: 3.8 BUN: 17.0 Creatinine Lvl (s): 0.92 04/10 21:29 WBC: 5.2 Hgb: 13.5 Hct: 40.7 Platelet: 183 Neutrophil %: 64.9 Protime: 14.4 H PT International Ratio: 1.3 Glucose Level: 219 H Sodium Level: 132 L Potassium Level: 4.0 BUN: 13.0 Creatinine Lvl (s): 0.87 Imaging Results and Diagnostics CXR: Small bilateral pleural effusions with adjacent basilar airspace disease and/or atelectasis. EKG AFib , with IVCD vs pacing, rate control Assessment/Plan 72-year-old with longstanding persistent atrial fibrillation, sinus bradycardia s/p DDD-PPM on 03/18/2021 (Medtronic), hide ventricular pacing 60%, CHF, chronic venous stasis, subtherapeutic INR, HTN, HLP, GERD, diabetes, dizziness, bipolar, and other problems who EP is now consulted for atrial fibrillation management in setting of CHF. 1. Longstanding persistent atrial fibrillation. She denies prior DCCV. She was on sotalol 80 mg twice daily at home. This has been stopped due to the CHF. She is a poor candidate for dofetilide due to concomitant QTc prolonging medications (bipolar). -Agree to stop sotalol -Initiate amiodarone IV at 1 mg /min for rate control (due to reverse use dependence and longstanding AFib, this will not cause chemical cardioversion) - VICTOR MANUEL-DCCV later this week -She may be a good candidate for hybrid maze in the future, given she is subtherapeutic INR frequently, and they can place JOSE clip and she would have a better chance of maintaining sinus rhythm long-term. -Continue warfarin / IV heparin for goal INR > 2 2. CHF - echo pending - IF < 50%, would beneft from LV lead - diuresis per primary team 3. DDD-PPM present. V pacing 60%. Normal device function. - echo pending 4. Comorbid conditions as above Aubrey Hamlin MD Cardiac Electrophysiology [phone] Problem List/Past Medical History Ongoing Anxiety Atrial fibrillation Bipolar disorder Chest pain Chronic left hip pain Chronic lumbar pain Chronic nausea Chronic urticaria Depression Diabetes mellitus type 2, insulin dependent Diabetic polyneuropathy Dizziness Dyspnea Edema of both lower extremities GERD - Gastro-esophageal reflux disease HTN (hypertension) Hypercholesterolemia Long-term (current) use of anticoagulants, INR goal 2.0-3.0 Mental status alteration MVP (mitral valve prolapse) Nocturnal hypoxia On continuous oral anticoagulation Organic sleep apnea Osteoarthritis of knees, bilateral Pacemaker SSS (sick sinus syndrome) Suicide ideation Supplemental oxygen dependent Tachy-josé luis syndrome Historical Pneumonia Rib pain on left side UTI (urinary tract infection) Procedure/Surgical History UPPER BACK WOUND DEBRIDEMENT AND WOUND VAC CHANGE, with sharp, blunt and electrocautery debridementdown to muscle 14x9x2.5 with tunneling 2cm upper left: 10/05/22 Wound Debridement with Application of Wo, DRAINAGE OF BACK ABSCESS. PLACEMENT OF WOUND VAC greater than 50 cm , sharp excisional debridement: 10/03/22 Cardiac pacemaker: 03/18/21 EKG findin11/13/19 Echocardiogram: 10/29/19 EKG findin10/29/19 Cataract: 09/2019 Cardiac catheterization: 03/09/16 Echocardiogram: 02/13/16 Biopsy of bladder: 01/2016 Cardiovascular stress testin09/08/15 Endoscopy: 02/21/91 Endoscopy: 12/06/88 Endoscopy: 07/22/86 Arm Surgery: 1985 Hysterectomy: 1982 section: 1982 Biopsy of breast Cholecystectomy Radical mastectomy Cholecystectomy Appendectomy Dilation and curettage Transesophageal echocardiogram Medications Inpatient acetaminophen, 650 mg= 2 tab(s), Oral, q4h, PRN Amiodarone for IV 450 mg [0.5 mg/min] + NS 250 mL Amiodarone for IV 450 mg [1 mg/min] + NS 250 mL clindamycin, 450 mg= 3 cap(s), Oral, q8h Dextrose 50% IV Push, 12.5 gram(s)= 25 mL, IV Push, AsDirected, PRN docusate-senna 50 mg-8.6 mg oral tablet, 1 tab(s), Oral, BID Ecotrin, 81 mg= 1 tab(s), Oral, qDayM Fluad Quadrivalent PF [id number], 0.5 mL, Intramuscular, Vaccine-day 2 Heparin for IV 25,000 unit(s) [1000 unit(s)/hr] + Dextrose 5% Premix Diluent 250 mL Heparin HBW CARDIAC Bolus 5000 units/mL, 4000 unit(s)= 0.8 mL, 60 unit(s)/kg, IV Push, q6h, PRN HumaLOG 100 units/mL subcutaneous solution, 5 unit(s)= 0.05 mL, Subcutaneous, with breakfast HumaLOG 100 units/mL subcutaneous solution, 5 unit(s)= 0.05 mL, Subcutaneous, with lunch HumaLOG 100 units/mL subcutaneous solution, 5 unit(s)= 0.05 mL, Subcutaneous, with supper HumaLOG 100 units/mL subcutaneous solution, Give 0-10 units/dose, Subcutaneous, TIDAC Lantus, 15 unit(s)= 0.15 mL, Subcutaneous (INT), acBreakfast Lipitor, 40 mg= 1 tab(s), Oral, qDay loratadine, 10 mg= 1 tab(s), Oral, BID, PRN losartan, 25 mg= 1 tab(s), Oral, qDay magnesium sulfate for IV bolus, 2 gram(s)= 50 mL, IV Piggyback, AsDirected, PRN magnesium sulfate for IV bolus, 4 gram(s)= 100 mL, IV Piggyback, AsDirected, PRN magnesium sulfate for IV bolus Metoprolol Tartrate 25 mg oral tablet, 25 mg= 1 tab(s), Oral, Daily miconazole 2% topical powder, 1 krishna, Topical, BID Miralax Powder Packet, 17 gram(s)= 15 mL, Oral, BID, PRN mirtazapine, 30 mg= 2 tab(s), Oral, qHS nitroglycerin 0.4 mg sublingual tablet, 0.4 mg= 1 tab(s), Sublingual, q5min, PRN ondansetron, 4 mg= 1 tab(s), Oral, q8h, PRN potassium chloride, 20 mEq= 1 tab(s), Oral, AsDirected, PRN potassium chloride, 40 mEq= 2 tab(s), Oral, AsDirected, PRN potassium chloride, 40 mEq= 2 tab(s), Oral, AsDirected, PRN potassium chloride bolus, 20 mEq= 100 mL, IV Piggyback, AsDirected, PRN Vitamin D3 125 mcg (5000 intl units) oral capsule, 125 mcg= 1 cap(s), Oral, qDay Home acetaminophen, 650 mg= 2 tab(s), Oral, q4h, PRN acetaminophen-hydrocodone 325 mg-7.5 mg oral tablet, 1 tab(s), Oral, q4h, PRN atorvastatin 20 mg oral tablet, 20 mg= 1 tab(s), Oral, qDay Blood Glucose Test Machine, See Instructions Blood Glucose Test Strips, See Instructions, 3 refills clindamycin 150 mg oral capsule, 450 mg= 3 cap(s), Oral, q8h DME MISCellaneous, See Instructions furosemide 40 mg oral tablet, 40 mg= 1 tab(s), Oral, qDay insulin glargine-yfgn 100 units/mL subcutaneous solution, 20, Subcutaneous, qDay Lancets, See Instructions, 3 refills Lasix 40 mg oral tablet, 40 mg= 1 tab(s), Oral, BID, 1 refills Lopressor 25mg--USE metoprolol tartrate 25 mg oral tablet, 25 mg= 1 tab(s), Oral, Daily, 3 refills loratadine 10 mg oral tablet, 10 mg= 1 tab(s), Oral, BID, PRN, 3 refills losartan 25 mg oral tablet, 25 mg= 1 tab(s), Oral, qDay, 3 refills miconazole 2% topical powder, 1 krishna, Topical, BID mirtazapine 30 mg oral tablet, 30 mg= 1 tab(s), Oral, qHS, 2 refills NovoLOG FlexPen 100 units/mL injectable solution, 5 unit(s), Subcutaneous, TIDAC, 3 refills ondansetron 4 mg oral tablet, 4 mg= 1 tab(s), Oral, q8h, PRN sotalol 80 mg oral tablet, 80 mg= 1 tab(s), Oral, qHS, 3 refills Vitamin D3 125 mcg (5000 intl units) oral capsule, 125 mcg= 1 cap(s), Oral, qDay warfarin 5 mg oral tablet, 5 mg= 1 tab(s), Oral, qDay, 1 refills Allergies Bystolic (Irregular heart beat) Cardizem (Dizziness) Tenormin (Bradycardia) Zebeta (Unknown) biaxin (GI upset) cipro glucaphage penicillin vancomycin Social History Smoking Status - 11/03/2015 Never smoker Alcohol Use: Past., 10/20/2022 Employment/School Status: Retired., 07/03/2019 Exercise Home/Environment Domestic Concerns: None., 02/23/2019 Nutrition/Health Caffeine intake amount: coffee, 1 serving daily., 10/16/2018 Substance Abuse Use: Never., 10/16/2018 Tobacco Tobacco Use: Former smoker, quit more than 30 days ago., 10/16/2018 Family History Breast cancer: Mother. Diabetes: Mother and Brother. Glioblastoma: Mother. Heart attack: Mother. Hypertension: Mother, Father and Brother. Stroke: Father. Immunizations SARS-CoV-2 (COVID-19) mRNA-1273 vaccine: 0 unknown unit (05/01/20) tetanus/diphth/pertuss (Tdap) adult/adol: 0.5 unknown unit (09/30/22) tetanus/diphth/pertuss (Tdap) adult/adol: 0.5 unknown unit (05/28/19) Digitally Signed by AUBREY HAMLIN MD on 04/11/2023 08:37 AM [id number]* Exam Date Time Procedure Performing Provider Status 04/11/23 7:11 AM VL Venous US/Doppler Both Legs(for DVT) Auth (Verified) [facility] 01-22-2024 NoteVENTRICULAR-PACED RHYTHM Electronic Signature: NGUYEN FISCHER MD 04/11/2023 16:52:07[facility] 01-21-2024 History and physical note Date of Service 04/10/23 Chief Complaint Shortness of breath, abdominal pain, lower extremity pain and weight gain History of Present Illness 72-year-old female with past medical history of hypertension, hyperlipidemia, recurrent atrial fibrillation on warfarin and sotalol, sick sinus syndrome status post Medtronic dual-chamber permanent pacemaker, type 2 diabetes, diabetic peripheral neuropathy, and memory impairment presented to the emergency department at [facility] due to complaints of shortness of breath, abdominal pain, lower extremity pain, and weight gain. Patient states she has been having the symptoms ongoing for couple ofmonths and have been getting progressively worse. Patient states that when her son and daughter checked on her they brought her in to the hospital to be examined. Initial lab work showed elevated troponin to around 1400. Initial chest x-ray showed vascular congestion. Initial EKG showed new onset atrial flutter. Initial CT PE was negative for PE but showed vascular congestion. Initial CT abdomen pelvis was within normal limit but did show large stool burden. Patient was given aspirin and metoprolol and transferred to [facility] for further evaluation. Patient is admitted under the cardiology service for new onset heart failure with preserved ejection fraction, atrial flutter with RVR,and troponin elevated. Review of Systems Per HPI, Complete ROS otherwise negative Physical Exam Vitals and Measurements T: 37.0 C (Oral) HR: 78(Monitored) RR: 19 BP: 168/102 SpO2: 93% HT: 170.2 cm WT: 100.4 kg BMI: 34.66 Weight Dosing Weight: 100.4 kg (04/10/23) General: AAOX2, mild distress, elderly disheveled obese female HEENT: Anicteric sclera, MMM Neck: Trachea midline, JVD appreciated CVS: RRR, normal S1/S2, no murmurs/rubs/gallops Lung: Crackles bilaterally, increased work of breathing Abd: Soft, NT/ND Extrem: WWP, 2+ LE edema Skin: Warm, excoriations on bilateral lower extremity Neuro: AAOX2 spontaneous movement of all extremities Psych: Appropriate mood & affect Lab Results No 36 Hour Lab Data Imaging Results and Diagnostics XR Chest 1 View Result Date: April 10, 2023 Verified By: LOUIE COBB, EDUARDO Wright CLINICAL STATEMENT: IMPRESSION: Cardiomegaly with vascular congestion and right perihilar, bilateralinterstitial/hazy airspace opacities may suggest pulmonary edema. Atypicalpneumonia is in differential. Small bilateralpleural effusions with adjacent basilar airspace diseaseand/or atelectasis. I have personally reviewed the images of this examination, and agree with theresident's findings and interpretation. Transthoracic Echocardiography Study date: 10/01/2022 Study Time: 08:48 PM Summary: 1. Left ventricle: The cavity size is normal. Wall thickness is mildly increased. Systolic functionis normal. The estimated ejection fraction is 55-60%. Wall motion is normal; there are no regional wall motion abnormalities. Unable to assess diastolic function. 2. Mitral valve: Not well visualized. 3. Left atrium: The atrium is mildly dilated. 4. Right ventricle: The RV systolic pressure by Doppler is 38 mm Hg. 5. Tricuspid valve: Not well visualized. There is mild-moderate regurgitation. 6. Right atrium: The estimated right atrial pressure is 15 mm Hg. Recommendations: No obvious vegetations seen, consider VICTOR MANUEL if clinically indicated. Study data: Patient unit: [facility]. Patient room number: 4632. Transthoracic echocardiography. M-mode, complete 2D, complete spectral Doppler, and color Doppler. Study status: Routine. Patient status: Inpatient. Objective: Bacteremia, hx of pacemaker. Location: Bedside. Procedure: Transthoracic echocardiography was performed for ventricular function evaluation. Image quality was suboptimal. The study was technically limited due to poor acoustic window availability, restricted patient mobility, breast implants, and body habitus. 3 ml of intravenous contrast (Definity) was administered to opacify the LV. Left ventricle: The cavity size is normal. Wall thickness is mildly increased. Systolic function isnormal. The estimated ejection fraction is 55-60%. Wall motion is normal; there are no regional wall motion abnormalities. The wall mass is 182 g. The wall mass index is 84 g/m . Unable to assess diastolic function. Left atrium: The atrium is mildly dilated. Right ventricle: The cavity size is normal. Systolic function is normal. The RV systolic pressure by Doppler is 38 mm Hg. Right atrium: Not well visualized. The atrium is normal in size. The estimated right atrial pressure is 15 mm Hg. Mitral valve: Not well visualized. No significant valve disease is observed. No evidence for prolapse. The pressure half- time is 75 ms. Doppler: There is no evidence for stenosis. There is trivial regurgitation. The meandiastolic gradient is 1 mm Hg. The valve area by pressure half-time is 2.9 cm . Aortic valve: Not well visualized. The valve is trileaflet. Doppler: There is no stenosis. There isno significant regurgitation. Tricuspid valve: Not well visualized. No significant valve disease is observed. The regurgitant peak velocity is 2.4 m/sec. Doppler: There is no evidence for stenosis. There is mild-moderate regurgitation. Pulmonic valve: Not well visualized. There is no significant valve disease. The peak systolic velocity is 0.85 m/sec. Doppler: There is no evidence for stenosis. There is trivial regurgitation. Aorta: Aortic root: The aortic root is normal. Systemic veins: Inferior vena cava: The IVC is dilated. Assessment/Plan #Atrial flutter with RVR, now rate controlled #Persistent atrial fibrillation/atrial flutter - [id number] 5 points #Sick sinus syndrome status post Medtronic dual-chamber permanent pacemaker - Snowboard Designer: Dr. Hamlin Plan: - Anticoagulation: Ordered IV heparin drip - Rhythm control: Canceled Sotalol 80 mg daily, Ordered IV amiodarone drip - Rate control: Metoprolol tartrate 25 mg daily - DCCV can be considered in the future when medically stable - Consulted electrophysiology, appreciate recommendations #Dyspnea #Abdominal pain #Lower extremity pain and swelling #Weight gain #New onset HFpEF exacerbation #Troponin elevation type I versus type II OR #Bilateral lower extremity cellulitis? #Hypertension #Hyperlipidemia #Type 2 diabetes #Diabetic peripheral neuropathy #Dementia, unspecified? - CVC: Cecilio Fox - Latest EKG reviewed - Latest imaging reviewed - Latest echocardiogram reviewed Plan: - Ordered TTE - Ordered lower extremity venous and arterial imaging - Salt/Water restriction (<2g/d, <2L/d respectively), daily weight, strict I+Os - Monitor & replace electrolytes as needed, goal K >4 mEq/L, Mg >2 mg/dL - Inpatient CHF regimen ACEi/ARB/ARNI: Losartan 25 mg daily After/Pre: None BBlockade: Metoprolol tartrate 25 mg daily Coronary: Ordered aspirin 81 mg daily, Ordered atorvastatin 40 mg daily Diuretic: Ordered IV Lasix 40 mg twice daily MRAntag: None SGLT2: None Others: None Device: PPM Advanced Therapies: None - Ordered IV heparin drip - Further ischemic workup can be considered in the future when medically stable - Consulted infectious disease, appreciate recommendations - Consulted hospitalist, appreciate recommendations Patient to be seen and discussed with Dr. Tip Stafford II, MD PGY-V Cardiovascular Disease Fellow Pager: [phone] Problem List/Past Medical History Ongoing Anxiety Atrial fibrillation Bipolar disorder Chest pain Chronic left hip pain Chronic lumbar pain Chronic nausea Chronic urticaria Depression Diabetes mellitus type 2, insulin dependent Diabetic polyneuropathy Dizziness Dyspnea Edema of both lower extremities GERD - Gastro-esophageal reflux disease HTN (hypertension) Hypercholesterolemia Long-term (current) use of anticoagulants, INR goal 2.0-3.0 Mental status alteration MVP (mitral valve prolapse) Nocturnal hypoxia On continuous oral anticoagulation Organic sleep apnea Osteoarthritis of knees, bilateral Pacemaker SSS (sick sinus syndrome) Suicide ideation Supplemental oxygen dependent Tachy-josé luis syndrome Historical Pneumonia Rib pain on left side UTI (urinary tract infection) Procedure/Surgical History UPPER BACK WOUND DEBRIDEMENT AND WOUND VAC CHANGE, with sharp, blunt and electrocautery debridementdown to muscle 14x9x2.5 with tunneling 2cm upper left: 10/05/22 Wound Debridement with Application of Wo, DRAINAGE OF BACK ABSCESS. PLACEMENT OF WOUND VAC greater than 50 cm , sharp excisional debridement: 10/03/22 Cardiac pacemaker: 03/18/21 EKG findin11/13/19 Echocardiogram: 10/29/19 EKG findin10/29/19 Cataract: 09/2019 Cardiac catheterization: 03/09/16 Echocardiogram: 02/13/16 Biopsy of bladder: 01/2016 Cardiovascular stress testin09/08/15 Endoscopy: 02/21/91 Endoscopy: 12/06/88 Endoscopy: 07/22/86 Arm Surgery: 1985 Hysterectomy: 1982 section: 1982 Biopsy of breast Cholecystectomy Radical mastectomy Cholecystectomy Appendectomy Dilation and curettage Transesophageal echocardiogram Medications Home Medications (21) Active acetaminophen 650 mg = 2 tab(s), PRN, Oral, q4h acetaminophen-hydrocodone 325 mg-7.5 mg oral tablet 1 tab(s), PRN, Oral, q4h atorvastatin 20 mg oral tablet 20 mg = 1 tab(s), Oral, qDay Blood Glucose Test Machine See Instructions Blood Glucose Test Strips See Instructions clindamycin 150 mg oral capsule 450 mg = 3 cap(s), Oral, q8h DME MISCellaneous See Instructions furosemide 40 mg oral tablet 40 mg = 1 tab(s), Oral, qDay insulin glargine-yfgn 100 units/mL subcutaneous solution 20, Subcutaneous, qDay Lancets See Instructions Lasix 40 mg oral tablet 40 mg = 1 tab(s), Oral, BID Lopressor 25mg--USE metoprolol tartrate 25 mg oral tablet 25 mg = 1 tab(s), Oral, Daily loratadine 10 mg oral tablet 10 mg = 1 tab(s), PRN, Oral, BID losartan 25 mg oral tablet 25 mg = 1 tab(s), Oral, qDay miconazole 2% topical powder 1 krishna, Topical, BID mirtazapine 30 mg oral tablet 30 mg = 1 tab(s), Oral, qHS NovoLOG FlexPen 100 units/mL injectable solution 5 unit(s), Subcutaneous, TIDAC ondansetron 4 mg oral tablet 4 mg = 1 tab(s), PRN, Oral, q8h sotalol 80 mg oral tablet 80 mg = 1 tab(s), Oral, qHS Vitamin D3 125 mcg (5000 intl units) oral capsule 125 mcg = 1 cap(s), Oral, qDay warfarin 5 mg oral tablet 5 mg = 1 tab(s), Oral, qDay Allergies Bystolic (Irregular heart beat) Cardizem (Dizziness) Tenormin (Bradycardia) Zebeta (Unknown) biaxin (GI upset) cipro glucaphage penicillin vancomycin Social History Smoking Status - 11/03/2015 Never smoker Alcohol Use: Past., 10/20/2022 Employment/School Status: Retired., 07/03/2019 Exercise Home/Environment Domestic Concerns: None., 02/23/2019 Nutrition/Health Caffeine intake amount: coffee, 1 serving daily., 10/16/2018 Substance Abuse Use: Never., 10/16/2018 Tobacco Tobacco Use: Former smoker, quit more than 30 days ago., 10/16/2018 Family History Breast cancer: Mother. Diabetes: Mother and Brother. Glioblastoma: Mother. Heart attack: Mother. Hypertension: Mother, Father and Brother. Stroke: Father. Immunizations SARS-CoV-2 (COVID-19) mRNA-1273 vaccine: 0 unknown unit (05/01/20) tetanus/diphth/pertuss (Tdap) adult/adol: 0.5 unknown unit (09/30/22) tetanus/diphth/pertuss (Tdap) adult/adol: 0.5 unknown unit (05/28/19) Code Status Code Status - Ordered -- 04/10/23 20:59:00 EST, Full Code, Constant Order Digitally Signed by BABATUNDE STAFFORD MD on 04/11/2023 02:04 AM Digitally Signed by BABATUNDE STAFFORD MD on 04/11/2023 02:05 AM Digitally Signed by BABATUNDE STAFFORD MD on 04/11/2023 06:50 AM Digitally Signed by BABATUNDE STAFFORD MD on 04/11/2023 08:15 AM [id number] ORIGINAL EXAMINATION: ONE XRAY VIEW OF THE CHEST 04/10/2023 9:19 pm COMPARISON: 10/07/2022 HISTORY: ORDERING SYSTEM PROVIDED HISTORY: Reason for Exam: Chest Pain FINDINGS: Study is degraded due to patient body habitus and left rotation. Left cardiac pacemaker device is in stable position. Enlarged and stable cardiomediastinal silhouette. Lung apices are suboptimally visualized due to patient's head positioning. Small bilateral pleural effusions with adjacent basilar airspace disease and/or atelectasis. Vascular congestion with right perihilar, bilateral interstitial/hazy airspace opacities may suggest pulmonary edema or atypical pneumonia. IMPRESSION: Cardiomegaly with vascular congestion and right perihilar, bilateral interstitial/hazy airspace opacities may suggest pulmonary edema. Atypical pneumonia is in differential. Small bilateral pleural effusions with adjacent basilar airspace disease and/or atelectasis. I have personally reviewed the images of this examination, and agree with the resident's findings and interpretation. Interpreted by: Eduardo Leal MD Preliminary Report By: David Ang Electronically signed By Eduardo Leal MD Dictated Date: 04/11/2023 12:39:31 AM Prelim Date: 04/11/2023 12:44:06 AM Sign Date: 04/11/2023 12:50:29 AM Ordering Provider: [facility]01-21-2024 NoteAFIB/FLUTTER AND VENTRICULAR-PACED RHYTHM Electronic Signature: NGUYEN FISCHER MD 04/11/2023 16:52:01[facility] 07-27-2023 Hospital Discharge instructions Patient Education 10/14/2022 19:49:08 Atrial Fibrillation, [id number] Atrial Fibrillation Atrial fibrillation is a type of heartbeat that is irregular or fast (rapid). If you have this condition, your heart beats without any order. This makes it hard for your heart to pump blood in a normal way. Having this condition gives you more risk for stroke, heart failure, and other heart problems. Atrial fibrillation may start all of a sudden and then stop on its own, or it may become a long-lasting problem. What are the causes? This condition may be caused by heart conditions, such as: High blood pressure. Heart failure. Heart valve disease. Heart surgery. Other causes include: Pneumonia. Obstructive sleep apnea. Lung cancer. Thyroid disease. Drinking too much alcohol. Sometimes the cause is not known. What increases the risk? You are more likely to develop this condition if: You smoke. You are older. You have diabetes. You are overweight. You have a family history of this condition. You exercise often and hard. What are the signs or symptoms? Common symptoms of this condition include: A feeling like your heart is beating very fast. Chest pain. Feeling short of breath. Feeling light-headed or weak. Getting tired easily. Follow these instructions at home: Medicines Take [id number] and prescription medicines only as told by your doctor. If your doctor gives you a blood-thinning medicine, take it exactly as told. Taking too much of it can cause bleeding. Taking too little of it does not protect you against clots. Clots can cause a stroke. Lifestyle Do not use any tobacco products. These include cigarettes, chewing tobacco, and e-cigarettes. If you need help quitting, ask your doctor. Do not drink alcohol. Do not drink beverages that have caffeine. These include coffee, soda, and tea. Follow diet instructions as told by your doctor. Exercise regularly as told by your doctor. General instructions If you have a condition that causes breathing to stop for a short period of time (apnea), treat it as told by your doctor. Keep a healthy weight. Do not use diet pills unless your doctor says they are safe for you. Diet pills may make heart problems worse. Keep all follow-up visits as told by your doctor. This is important. Contact a doctor if: You notice a change in the speed, rhythm, or strength of your heartbeat. You are taking a blood-thinning medicine and you see more bruising. You get tired more easily when you move or exercise. You have a sudden change in weight. Get help right away if: You have pain in your chest or your belly (abdomen). You have trouble breathing. You have blood in your vomit, poop, or pee (urine). You have any signs of a stroke. BE FAST is an easy way to remember the main warning signs: ?B - Balance. Signs are dizziness, sudden trouble walking, or loss of balance. ?E - Eyes. Signs are trouble seeing or a change in how you see. ?F - Face. Signs are sudden weakness or loss of feeling in the face, or the face or eyelid droopingon one side. ?A - Arms. Signs are weakness or loss of feeling in an arm. This happens suddenly and usually on one side of the body. ?S - Speech. Signs are sudden trouble speaking, slurred speech, or trouble understanding what people say. ?T - Time. Time to call emergency services. Write down what time symptoms started. You have other signs of a stroke, such as: ?A sudden, very bad headache with no known cause. ?Feeling sick to your stomach (nausea). ?Throwing up (vomiting). ?Jerky movements you cannot control (seizure). These symptoms may be an emergency. Do not wait to see if the symptoms will go away. Get medical help right away. Call your local emergency services (911 in the [place] Do not drive yourself to the hospital. Summary Atrial fibrillation is a type of heartbeat that is irregular or fast (rapid). You are at higher risk of this condition if you smoke, are older, have diabetes, or are overweight. Follow your doctor's instructions about medicines, diet, exercise, and follow-up visits. Get help right away if you think that you have signs of a stroke. This information is not intended to replace advice given to you by your health care provider. Make sure you discuss any questions you have with your health care provider. Document Released: 12/14/2008 Document Revised: 05/11/2018 Document Reviewed: 04/28/2018 [employer] Patient Education 2020 [employer]. 10/04/2022 11:24:57 Sepsis, Self Care, Adult Sepsis, Self Care, Adult Sepsis is a serious illness that may require intensive care in the hospital. The following information explains what you need to know in order to manage your condition after you are discharged from the hospital. What are the risks? After being treated for sepsis and discharged from the hospital, you may be at a higher risk for certain problems. These problems may be physical or mental. Physical problems: Weakness and tiredness. Shortness of breath. Pain in many areas of the body. Difficulty walking. Dry, itchy skin. Lack of appetite. This may lead to weight loss. Organ failure. Mental problems: Difficulty sleeping. Depression. Confusion. Anxiety and worry caused by having gone through a bad experience (post-traumatic stress disorder,PTSD). Low self-esteem. Follow these instructions at home: Medicines Take vepu-cph-ydjrpaq and prescription medicines only as told by your health care provider. If you were prescribed an antibiotic, antiviral, or antifungal medicine, take it as told by your health care provider. Do not stop taking the medicine even if you start to feel better. Eating and drinking Eat a healthy diet that includes plenty of vegetables, fruits, whole grains, low-fat dairy products, and lean protein. Ask your health care provider if you should avoid certain foods. Drink enough fluid to keep your urine pale yellow. Alcohol use Do not drink alcohol if: ?Your health care provider tells you not to drink. ?You are , may be , or are planning to become . If you drink alcohol, limit how much you use to: ?0 1 drink a day for women. ?0 2 drinks a day for men. ?Be aware of how much alcohol is in your drink. In the [place] one drink equals one 12 oz bottle of beer (355 mL), one 5 oz glass of wine (148 mL), or one 1 oz glass of hard liquor (44 mL). Activity Rest and gradually return to your normal activities. Ask your health care provider what activities are safe for you. Avoid sitting for a long time without moving. Get up to take short walks every 1 2 hours. This is important to improve blood flow and breathing. Ask for help if you feel weak or unsteady. Try to set small, achievable goals each week, such as dressing yourself, bathing, or walking up thestairs. It may take a while to rebuild your strength. Try to exercise regularly if you feel healthy enough to do so. Ask your health care provider what exercises are safe for you. Preventing infection Keep your vaccinations up to date. Get the flu shot every year. Wash your hands often using soap and water. Use hand recruiting internship if soap and water are not available. Practice good hygiene. Keep cuts clean and covered until healed. Managing stress Talk with your health care provider or counselor about ways to reduce stress. He or she may suggest: Meditation, muscle relaxation, and breathing exercises. Talk therapy. Spending time on hobbies and activities that you enjoy. General instructions Get the right amount and quality of sleep. Most adults need 7 9 hours of sleep each night. To help with sleep: ?Keep your bedroom cool and dark. ?Do not eat a heavy meal within one hour of bedtime. ?Do not drink alcohol or caffeinated drinks before bed. ?Avoid screen time, such as television, computers, tablets, or cell phones before bed. Do not use any products that contain nicotine or tobacco, such as cigarettes, e- cigarettes, and chewing tobacco. If you need help quitting, ask your health care provider. Talk to trusted family members and friends about your condition. Explain your symptoms to them, andlet them know that you are working with a health care provider to treat your condition. This can provide you with one way to get support and guidance. Keep all follow-up visits as told by your health care provider. This is important. Questions to ask your health care provider: What physical and emotional changes do I need to report? Do I need to have someone with me all the time? Is it safe for me to drive? Contact a health care provider if you: Do not feel like you are getting better or regaining strength. Have muscle or joint pain. Frequently feel tired. Are having trouble coping with your recovery. Have nightmares, or trouble falling asleep or staying asleep. Feel sad, down, or depressed more often than not, every day for more than 2 weeks. Have difficulty concentrating. Feel irritable or you cry for no reason. Get help right away if you: Have difficulty breathing. Have a rapid or skipping heartbeat. Become confused or disoriented. See, hear, or feel things that do not exist (hallucinations). Have a high fever. Have an infection that is getting worse or not getting better. You have thoughts of hurting yourself or others. If you ever feel like you may hurt yourself or others, or have thoughts about taking your own life,get help right away. You can go to your nearest emergency department or call: Your local emergency services (911 in the [place] A suicide crisis helpline, such as the National Suicide Prevention Lifeline at . Thisis open 24 hours a day. Summary Sepsis is a serious illness that may require intensive care in a hospital. You may experience long-term health effects after you are discharged from the hospital. Try to set small, achievable goals each week, such as dressing yourself, bathing, or walking up thestairs. It may take a while to rebuild your strength. Keep all follow-up visits as told by your health care provider. This is important. Know what symptoms you should get help right away for. This information is not intended to replace advice given to you by your health care provider. Make sure you discuss any questions you have with your health care provider. Document Released: 10/13/2018 Document Revised: 10/13/2018 Document Reviewed: 10/13/2018 [employer] Patient Education 2020 [employer]. Follow Up Care 09/30/2022 22:32:59 With:Tobi JOVEL Address:Unknown When:1-2 days With:BATSHEVA FOX Address: [address] [place] [phone] Business (1) When:1-2 days With:RYAN ALVARADO BA, MD, Infectious Disease, Infectious Disease Group Address: [facility] [place] [address] [place] [address]- When:5 to 7 days [facility] 07-27-2023 Note Discharge Instructions Thank you for allowing [facility] to assist you with your healthcare needs. The following is importantdischarge information regarding your hospital visit. Your Care Team BATSHEVA FOX DO Your Diagnosis Atrial fibrillation Chronic respiratory failure Diabetes mellitus type 2, insulin dependent Necrotizing fasciitis What to do next Instructions From Your Doctor Coumadin has been restarted INR currently 1.7 will discharge with full dose Lovenox to complete Coumadin bridge over the next 2 days. Recommend obtaining INR at day 2 (10/16) and extending or stoppingCoumadin Bridge based on those results. Goal INR 2-3. Please obtain CBC, differential, CMP, and CPK, every Tuesday and send results to fax number [phone] Alvarado Has appointment with Dr. Burnett on 10/21/2022 at 9:15 AM Scheduled Follow-Up Appointments Appointment Type When With Where Contact Information[employer] Post Op 10/21/2022 09:15 AM EDT GISELLE BURNETT DO [facility] CV Remote Procedure HM 12/31/2022 04:15 PM EDT [facility]ments Follow Up with Tobi JOVEL When Within 1-2 days Follow Up with BATSHEVA FOX When Within 1-2 days Where: [address] [place] [address] [phone] Business (1) Follow Up with RYAN ALVARADO BA, MD, Infectious Disease, Infectious Disease Group When Within 5 to 7 days Where: [facility] [place] [id number] [place] [address]- The Following Activity and Diet Have Been Ordered for You Transfer of Care Activity - Ordered -- Activity As Tolerated, 10/14/22 14:48:00 EDT Transfer of Care Diet - Ordered -- Type of Diet: Regular Diet, Calories Permitted: 1800 kcal, 10/14/22 14:48:00 EDT The Following Equipment Has Been Ordered for You Discharge Home Equipment Discharge Blood Glucose Monitoring - Ordered -- When to Test: Before each meal and at bedtime Discharge Wound Vac Care - Ordered -- left shoulder, Continuous suction, 125 cmH20, Tuesday, , 10/06/22 7:13:00 EDT Transfer of Care IV/PICC - Ordered -- Routine care per facility guidelines., 10/14/22 14:48:29 EDT Transfer of Care Wound Care - Ordered -- Shoulder, left, wound vac, continuous 125mmHG, sun, , , black sponge, 10/14/22 14:48:00EDT The Following Treatments Have Been Ordered for You Discharge Labs Transfer of Care Labwork - Ordered -- cbc bmp, elev creatinine, follow-up within: 72 hours, Results Notify to: house physician, 10/14/22 14:48:00 EDT Discharge Radiology No qualifying data available. Other Therapies Discharge Blood Glucose Monitoring - Ordered -- When to Test: Before each meal and at bedtime Transfer of Care OT - Ordered -- Reason for therapy: asthenia, 10/14/22 14:48:00 EDT Transfer of Care PT - Ordered -- Reason for therapy: asthenia, 10/14/22 14:48:00 EDT Post Acute Orders Transfer of Care Admission Level of Care - Ordered -- Level of Care SNF, 10/14/22 14:48:29 EDT Transfer of Care Code Status - Ordered -- Full Code, Constant Order Transfer of Care Communication Order - Ordered -- Expect less than 30 day stay., 10/14/22 14:48:29 EDT Transfer of Care IV/PICC - Ordered -- Routine care per facility guidelines., 10/14/22 14:48:29 EDT Transfer of Care Labwork - Ordered -- cbc bmp, elev creatinine, follow-up within: 72 hours, Results Notify to: house physician, 10/14/22 14:48:00 EDT Transfer of Care Orders Electronically Signed By - Ordered -- 10/14/22 14:48:00 EDT, CAROL ORR MD Transfer of Care Prognosis - Ordered -- Fair, Patient Aware: Yes Transfer of Care Rehab Potential - Ordered -- Rehab potential rena, 10/14/22 14:48:29 EDT Someone Will Contact You Regarding These Home Health Referrals No home referrals have been ordered for you. No one will call you. Allergies Bystolic (Irregular heart beat) Cardizem (Dizziness) Tenormin (Bradycardia) Zebeta (Unknown) biaxin cipro glucaphage penicillin vancomycin Medications Please ask your primary doctor or pharmacist before taking any other medication not listed, including over the counter drugs, herbal medications, vitamins and or supplements as they may interact withyour home medications. What How Much When Why Instructions Last Dose New acetaminophen 650 Milligram by mouth Every 4 hours as needed for Pain, scale 1-6 New busPIRone (busPIRone 5 mg oral tablet) 1 tab(s) by mouth Two (2) times a day New DAPTOmycin 600 Milligram IV Piggyback Once a day New enoxaparin (Lovenox) 100 Milligram Subcutaneous Every 12 hours Duration: 2 Days New miconazole topical (miconazole 2% topical powder) 1 application Topical Two (2) times a day Changed amLODIPine (amLODIPine 10 mg oral tablet) 1 tab(s) by mouth Once a day Changed furosemide (Lasix 40 mg oral tablet) 1 tab(s) by mouth Once a day start on Changed insulin lispro (HumaLOG) (HumaLOG 100 units/ mL subcutaneous solution) Give 0-10 units/dose Subcutaneous Three (3) times a day before meals Changed insulin lispro (HumaLOG) (insulin lispro (Humalog) 100 units/ mL injectable solution) 5 unit(s) Subcutaneous Three (3) times a day before meals Changed warfarin (warfarin 5 mg oral tablet) 1 tab(s) by mouth Once a day Unchanged atorvastatin (atorvastatin 20 mg oral tablet) 1 tab(s) by mouth Once a day Unchanged cholecalciferol (Vitamin D3 125 mcg (5000 intl units) oral capsule) 1 cap by mouth Once a day Unchanged DME (Blood Glucose Test Machine) See instructions Diabetes mellitus type 2, insulin dependent Dispense 1 glucometer, use as directed 4 times a day to test blood sugar. Diagnosis is E11.9. Frequent testing due to insulin dependence and fluctuating blood sugars. Unchanged DME (Blood Glucose Test Strips) See instructions Diabetes mellitus type 2, insulin dependent Dispense glucose test strips, #360, use 1 strip as directed 4 times daily to test blood sugar. Diagnosis: E11.9. Frequent testing due to insulin use and fluctuating blood sugars. Unchanged DME (Lancets) See instructions Diabetes mellitus type 2, insulin dependent Dispense ultrafine lancets, #360, use once lancet as directed 4 times daily to test blood sugar. Diagnosis: E11.9. Frequent testing due to insulin dependence and fluctuating blood sugars. Unchanged insulin glargine (insulin glargine-yfgn 100 units/ mL subcutaneous solution) 20 Subcutaneous Once a day q andrew Unchanged metoprolol (Lopressor 25mg--USE metoprolol tartrate 25 mg oral tablet) 1 tab(s) Every day Unchanged sotalol (sotalol 80 mg oral tablet) 1 tab(s) by mouth Daily at bedtime What How Much When Why Comments Stop Taking acetaminophen-hydrocodone (acetaminophen-hydrocodone 325 mg-7.5 mg oral tablet) 1 tab(s) by mouth Every 6 hours as needed for as needed for pain Chronic left hip pain Chronic lumbar pain Duration: 7 Days Stop Taking lisinopril (lisinopril 40 mg oral tablet) 1 tab(s) by mouth Once a day Please take this list to your next doctor s visit. Bring all medications you take, including over the counter medications, herbals and other supplements with you to your doctor s visit. Patients and families are reminded to discard old lists and to update any records with all medication providers or retail pharmacies. Education Materials Atrial Fibrillation Atrial fibrillation is a type of heartbeat that is irregular or fast (rapid). If you have this condition, your heart beats without any order. This makes it hard for your heart to pump blood in a normal way. Having this condition gives you more risk for stroke, heart failure, and other heart problems. Atrial fibrillation may start all of a sudden and then stop on its own, or it may become a long-lasting problem. What are the causes? This condition may be caused by heart conditions, such as: High blood pressure. Heart failure. Heart valve disease. Heart surgery. Other causes include: Pneumonia. Obstructive sleep apnea. Lung cancer. Thyroid disease. Drinking too much alcohol. Sometimes the cause is not known. What increases the risk? You are more likely to develop this condition if: You smoke. You are older. You have diabetes. You are overweight. You have a family history of this condition. You exercise often and hard. What are the signs or symptoms? Common symptoms of this condition include: A feeling like your heart is beating very fast. Chest pain. Feeling short of breath. Feeling light-headed or weak. Getting tired easily. Follow these instructions at home: Medicines Take douk-bcy-lnpwsuh and prescription medicines only as told by your doctor. If your doctor gives you a blood-thinning medicine, take it exactly as told. Taking too much of it can cause bleeding. Taking too little of it does not protect you against clots. Clots can cause a stroke. Lifestyle Do not use any tobacco products. These include cigarettes, chewing tobacco, and e-cigarettes. If you need help quitting, ask your doctor. Do not drink alcohol. Do not drink beverages that have caffeine. These include coffee, soda, and tea. Follow diet instructions as told by your doctor. Exercise regularly as told by your doctor. General instructions If you have a condition that causes breathing to stop for a short period of time (apnea), treat it as told by your doctor. Keep a healthy weight. Do not use diet pills unless your doctor says they are safe for you. Diet pills may make heart problems worse. Keep all follow-up visits as told by your doctor. This is important. Contact a doctor if: You notice a change in the speed, rhythm, or strength of your heartbeat. You are taking a blood-thinning medicine and you see more bruising. You get tired more easily when you move or exercise. You have a sudden change in weight. Get help right away if: You have pain in your chest or your belly (abdomen). You have trouble breathing. You have blood in your vomit, poop, or pee (urine). You have any signs of a stroke. BE FAST is an easy way to remember the main warning signs: ? B - Balance. Signs are dizziness, sudden trouble walking, or loss of balance. ? E - Eyes. Signs are trouble seeing or a change in how you see. ? F - Face. Signs are sudden weakness or loss of feeling in the face, or the face or eyelid drooping on one side. ? A - Arms. Signs are weakness or loss of feeling in an arm. This happens suddenly and usually on oneside of the body. ? S - Speech. Signs are sudden trouble speaking, slurred speech, or trouble understanding what peoplesay. ? T - Time. Time to call emergency services. Write down what time symptoms started. You have other signs of a stroke, such as: ? A sudden, very bad headache with no known cause. ? Feeling sick to your stomach (nausea). ? Throwing up (vomiting). ? Jerky movements you cannot control (seizure). These symptoms may be an emergency. Do not wait to see if the symptoms will go away. Get medical help right away. Call your local emergency services (911 in the [place] Do not drive yourself to the hospital. Summary Atrial fibrillation is a type of heartbeat that is irregular or fast (rapid). You are at higher risk of this condition if you smoke, are older, have diabetes, or are overweight. Follow your doctor's instructions about medicines, diet, exercise, and follow-up visits. Get help right away if you think that you have signs of a stroke. This information is not intended to replace advice given to you by your health care provider. Make sure you discuss any questions you have with your health care provider. Document Released: 12/14/2008 Document Revised: 05/11/2018 Document Reviewed: 04/28/2018 [employer] Patient Education 2020 [employer] Sepsis, Self Care, Adult Sepsis is a serious illness that may require intensive care in the hospital. The following information explains what you need to know in order to manage your condition after you are discharged from the hospital. What are the risks? After being treated for sepsis and discharged from the hospital, you may be at a higher risk for certain problems. These problems may be physical or mental. Physical problems: Weakness and tiredness. Shortness of breath. Pain in many areas of the body. Difficulty walking. Dry, itchy skin. Lack of appetite. This may lead to weight loss. Organ failure. Mental problems: Difficulty sleeping. Depression. Confusion. Anxiety and worry caused by having gone through a bad experience (post-traumatic stress disorder,PTSD). Low self-esteem. Follow these instructions at home: Medicines Take tupu-yrg-mkllusa and prescription medicines only as told by your health care provider. If you were prescribed an antibiotic, antiviral, or antifungal medicine, take it as told by your health care provider. Do not stop taking the medicine even if you start to feel better. Eating and drinking Eat a healthy diet that includes plenty of vegetables, fruits, whole grains, low-fat dairy products, and lean protein. Ask your health care provider if you should avoid certain foods. Drink enough fluid to keep your urine pale yellow. Alcohol use Do not drink alcohol if: ? Your health care provider tells you not to drink. ? You are , may be , or are planning to become . If you drink alcohol, limit how much you use to: ? 0 1 drink a day for women. ? 0 2 drinks a day for men. ? Be aware of how much alcohol is in your drink. In the [place] one drink equals one 12 oz bottle of beer (355 mL), one 5 oz glass of wine (148 mL), or one 1 oz glass of hard liquor (44 mL). Activity Rest and gradually return to your normal activities. Ask your health care provider what activities are safe for you. Avoid sitting for a long time without moving. Get up to take short walks every 1 2 hours. This is important to improve blood flow and breathing. Ask for help if you feel weak or unsteady. Try to set small, achievable goals each week, such as dressing yourself, bathing, or walking up thestairs. It may take a while to rebuild your strength. Try to exercise regularly if you feel healthy enough to do so. Ask your health care provider what exercises are safe for you. Preventing infection Keep your vaccinations up to date. Get the flu shot every year. Wash your hands often using soap and water. Use hand recruiting internship if soap and water are not available. Practice good hygiene. Keep cuts clean and covered until healed. Managing stress Talk with your health care provider or counselor about ways to reduce stress. He or she may suggest: Meditation, muscle relaxation, and breathing exercises. Talk therapy. Spending time on hobbies and activities that you enjoy. General instructions Get the right amount and quality of sleep. Most adults need 7 9 hours of sleep each night. To help with sleep: ? Keep your bedroom cool and dark. ? Do not eat a heavy meal within one hour of bedtime. ? Do not drink alcohol or caffeinated drinks before bed. ? Avoid screen time, such as television, computers, tablets, or cell phones before bed. Do not use any products that contain nicotine or tobacco, such as cigarettes, e- cigarettes, and chewing tobacco. If you need help quitting, ask your health care provider. Talk to trusted family members and friends about your condition. Explain your symptoms to them, andlet them know that you are working with a health care provider to treat your condition. This can provide you with one way to get support and guidance. Keep all follow-up visits as told by your health care provider. This is important. Questions to ask your health care provider: What physical and emotional changes do I need to report? Do I need to have someone with me all the time? Is it safe for me to drive? Contact a health care provider if you: Do not feel like you are getting better or regaining strength. Have muscle or joint pain. Frequently feel tired. Are having trouble coping with your recovery. Have nightmares, or trouble falling asleep or staying asleep. Feel sad, down, or depressed more often than not, every day for more than 2 weeks. Have difficulty concentrating. Feel irritable or you cry for no reason. Get help right away if you: Have difficulty breathing. Have a rapid or skipping heartbeat. Become confused or disoriented. See, hear, or feel things that do not exist (hallucinations). Have a high fever. Have an infection that is getting worse or not getting better. You have thoughts of hurting yourself or others. If you ever feel like you may hurt yourself or others, or have thoughts about taking your own life,get help right away. You can go to your nearest emergency department or call: Your local emergency services (911 in the [place] A suicide crisis helpline, such as the National Suicide Prevention Lifeline at . Thisis open 24 hours a day. Summary Sepsis is a serious illness that may require intensive care in a hospital. You may experience long-term health effects after you are discharged from the hospital. Try to set small, achievable goals each week, such as dressing yourself, bathing, or walking up thestairs. It may take a while to rebuild your strength. Keep all follow-up visits as told by your health care provider. This is important. Know what symptoms you should get help right away for. This information is not intended to replace advice given to you by your health care provider. Make sure you discuss any questions you have with your health care provider. Document Released: 10/13/2018 Document Revised: 10/13/2018 Document Reviewed: 10/13/2018 [employer] Patient Education 2020 [employer]. Additional Information VACCINATE! IT SAVES LIVES! Members of the community who have not yet received the COVID-19 vaccine and would like to receive it can visit one of [facility] vaccine clinics. There are many vaccine clinic locations within the [facility]. For locations and available times, please visit [email or web address]/. It is important to note that some COVID mobile vaccine clinics are held outdoors and may be canceled in rainy or stormy conditions. To learn more about pediatric vaccinations (ages 5-11), we invite you to visit the [facility] webpage. https://www.[facility].org/pages/5159-Hlywm-Mjohghzcjvx-Ywzoxwmwlm-Hkfze-Quo stions.htmlTo learn more about the COVID-19 vaccine, we invite you to visit the CDC website for a list of frequently asked questions.https://www.cdc.gov/coronavirus/2019-ncov/vaccines/faq.html [facility] Patient Portal Access Instructions: Stay connected with your healthcare team and access your personal medical information anytime with the [facility] Patient Portal. Please follow the directions below to create your [facility]um account: 1.Access the email account you provided upon registration to the hospital/physician office.2.Look for an invitation email from [facility].3.Open the email and access the invitation link: AcceptInvitation to Offerum.4.Fill in the required virgen to create your account. To access your account, visit [employer]. Click the blue button labeled Access Patient Portal and then log in with the username and password that you created in the steps above. You will be able to view your test results, lab results, a summary of your visits, upcoming appointments and more. There is also a convenient messaging option where you can send secure messages to your p rovider. In addition, you will have the ability to download any documents or summaries to your computer and/or send the information securely to a physician. Remember that your healthcare information is confidential, so carefully consider who you will allowto register on the [facility] Patient Portal for access to your information. You can also access the [facility] on the [facility] krishna. Simply click on Patient Portal and then log into your account. If you would like to receive a full copy of your medical records, please contact the [facility] Medical Records Department by calling [phone], Tuesday through Tuesday between 8 a.m. and 4:30 p.m. HOW TO SAFELY DISPOSE OF PRESCRIPTION MEDICATIONS Please use one of the following methods to safely dispose of your unused medications. 1.Use a drug disposal kit: the drug disposal pouch allows you to safely discard your old and unuseddrugs. Ask your nurse to give you one when you are discharged.2.Visit a local take-back location: Many local pharmacies and police departments have programs that collect old and unwanted prescriptiondrugs. Call your local pharmacy or go to http://[email or web address].[employer]/5T4Nb0y to find one close to you.3.Make use of household items: Use cat litter or old coffee grounds to dispose medications if other options arenot available. Mix your drugs with these household products, seal them in an airtight container andthrow it into the garbage. Call [facility]: [phone] to be sure your drugs can be disposed of in this way. Some medicines may require a different approach.4.Never flush your medications down the toilet. IF YOU HAVE BEEN PRESCRIBED AN OPIOID FOR PAIN If you have been prescribed an opioid (such as hydrocodone, oxycodone or morphine), it is critical to understand the possible side effects and risks of opioid pain medications. Even when taken as directed, opioids can have several side effects including: Tolerance, meaning you might need to take more of a medication for the same pain relief. Nausea, vomiting and/or constipation. Sleepiness, dizziness, dry mouth, confusion, depression or itching. Physical dependence, meaning you have withdrawal symptoms when a medication is stopped, can develop within a few days. KNOW YOUR RESPONSIBILITIES It is important to know exactly how much and how often to take the opioid pain medications you are prescribed. Never take opioids in higher amounts or more often than prescribed. Do not combine opioids with alcohol or other drugs that cause drowsiness, such as benzodiazepines, also known as benzos, including diazepam and alprazolam, muscle relaxants or sleep aids. Never sell or share prescription opioids. This is illegal. Store opioids in a secure place and out of reach of others (including children, family, friends and visitors). The last page of this document has been signed and retained as a CHART COPY. Signatures Patient Education Materials Atrial Fibrillation, Hvxs-nb-Uniu Sepsis, Self Care, Adult Medication Leaflets My discharge plan and instructions have been reviewed and explained to me and IMICHAEL JOHN PAUL M understand my current condition and have read and understand these discharge instructions. I have received a written copy of the plan/instructions. If I have questions, I am aware that I should contact my doctor. 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 The following is importantdischarge information regarding your hospital visit. Your Care Team BATSHEVA FOX DO Your Diagnosis Atrial fibrillation Chronic respiratory failure Diabetes mellitus type 2, insulin dependent Necrotizing fasciitis What to do next Instructions From Your Doctor Coumadin has been restarted INR currently 1.7 will discharge with full dose Lovenox to complete Coumadin bridge over the next 2 days. Recommend obtaining INR at day 2 (10/16) and extending or stoppingCoumadin Bridge based on those results. Goal INR 2-3. Please obtain CBC, differential, CMP, and CPK, every Tuesday and send results to fax number [phone] Alvarado Has appointment with Dr. Burnett on 10/21/2022 at 9:15 AM Scheduled Follow-Up Appointments Appointment Type When With Where Contact InformationGS [employer] Post Op 10/21/2022 09:15 AM EDT [facility] CV Remote Procedure HM 12/31/2022 04:15 PM EDT [facility] Golden Follow Up Appointments Follow Up with Tobi Valdez [facility] When Within 1-2 days Follow Up with BATSHEVA FOX When Within 1-2 days Where: [address] [place] [phone] Business (1) Follow Up with RYAN ALVARADO BA, MD, Infectious Disease, Infectious Disease Group When Within 5 to 7 days Where: [facility] [id number] [place] [address]- The Following Activity and Diet Have Been Ordered for You Transfer of Care Activity - Ordered -- Activity As Tolerated, 10/14/22 14:48:00 EDT Transfer of Care Diet - Ordered -- Type of Diet: Regular Diet, Calories Permitted: 1800 kcal, 10/14/22 14:48:00 EDT The Following Equipment Has Been Ordered for You Discharge Home Equipment Discharge Blood Glucose Monitoring - Ordered -- When to Test: Before each meal and at bedtime Discharge Wound Vac Care - Ordered -- left shoulder, Continuous suction, 125 cmH20, Tuesday, , 10/06/22 7:13:00 EDT Transfer of Care IV/PICC - Ordered -- Routine care per facility guidelines., 10/14/22 14:48:29 EDT Transfer of Care Wound Care - Ordered -- Shoulder, left, wound vac, continuous 125mmHG, sun, , , black sponge, 10/14/22 14:48:00EDT The Following Treatments Have Been Ordered for You Discharge Labs Transfer of Care Labwork - Ordered -- cbc bmp, elev creatinine, follow-up within: 72 hours, Results Notify to: house physician, 10/14/22 14:48:00 EDT Discharge Radiology No qualifying data available. Other Therapies Discharge Blood Glucose Monitoring - Ordered -- When to Test: Before each meal and at bedtime Transfer of Care OT - Ordered -- Reason for therapy: asthenia, 10/14/22 14:48:00 EDT Transfer of Care PT - Ordered -- Reason for therapy: asthenia, 10/14/22 14:48:00 EDT Post Acute Orders Transfer of Care Admission Level of Care - Ordered -- Level of Care SNF, 10/14/22 14:48:29 EDT Transfer of Care Code Status - Ordered -- Full Code, Constant Order Transfer of Care Communication Order - Ordered -- Expect less than 30 day stay., 10/14/22 14:48:29 EDT Transfer of Care IV/PICC - Ordered -- Routine care per facility guidelines., 10/14/22 14:48:29 EDT Transfer of Care Labwork - Ordered -- cbc bmp, elev creatinine, follow-up within: 72 hours, Results Notify to: house physician, 10/14/22 14:48:00 EDT Transfer of Care Orders Electronically Signed By - Ordered -- 10/14/22 14:48:00 EDT, CAROL ORR MD Transfer of Care Prognosis - Ordered -- Fair, Patient Aware: Yes Transfer of Care Rehab Potential - Ordered -- Rehab potential fair, 10/14/22 14:48:29 EDT Someone Will Contact You Regarding These Home Health Referrals No home referrals have been ordered for you. No one will call you. Allergies Bystolic (Irregular heart beat) Cardizem (Dizziness) Tenormin (Bradycardia) Zebeta (Unknown) biaxin cipro glucaphage penicillin vancomycin Medications Please ask your primary doctor or pharmacist before taking any other medication not listed, including over the counter drugs, herbal medications, vitamins and or supplements as they may interact withyour home medications. What How Much When Why Instructions Last Dose New acetaminophen 650 Milligram by mouth Every 4 hours as needed for Pain, scale 1-6 New busPIRone (busPIRone 5 mg oral tablet) 1 tab(s) by mouth Two (2) times a day New DAPTOmycin 600 Milligram IV Piggyback Once a day New enoxaparin (Lovenox) 100 Milligram Subcutaneous Every 12 hours Duration: 2 Days New miconazole topical (miconazole 2% topical powder) 1 application Topical Two (2) times a day Changed amLODIPine (amLODIPine 10 mg oral tablet) 1 tab(s) by mouth Once a day Changed furosemide (Lasix 40 mg oral tablet) 1 tab(s) by mouth Once a day start on Changed insulin lispro (HumaLOG) (HumaLOG 100 units/ mL subcutaneous solution) Give 0-10 units/dose Subcutaneous Three (3) times a day before meals Changed insulin lispro (HumaLOG) (insulin lispro (Humalog) 100 units/ mL injectable solution) 5 unit(s) Subcutaneous Three (3) times a day before meals Changed warfarin (warfarin 5 mg oral tablet) 1 tab(s) by mouth Once a day Unchanged atorvastatin (atorvastatin 20 mg oral tablet) 1 tab(s) by mouth Once a day Unchanged cholecalciferol (Vitamin D3 125 mcg (5000 intl units) oral capsule) 1 cap by mouth Once a day Unchanged DME (Blood Glucose Test Machine) See instructions Diabetes mellitus type 2, insulin dependent Dispense 1 glucometer, use as directed 4 times a day to test blood sugar. Diagnosis is E11.9. Frequent testing due to insulin dependence and fluctuating blood sugars. Unchanged DME (Blood Glucose Test Strips) See instructions Diabetes mellitus type 2, insulin dependent Dispense glucose test strips, #360, use 1 strip as directed 4 times daily to test blood sugar. Diagnosis: E11.9. Frequent testing due to insulin use and fluctuating blood sugars. Unchanged DME (Lancets) See instructions Diabetes mellitus type 2, insulin dependent Dispense ultrafine lancets, #360, use once lancet as directed 4 times daily to test blood sugar. Diagnosis: E11.9. Frequent testing due to insulin dependence and fluctuating blood sugars. Unchanged insulin glargine (insulin glargine-yfgn 100 units/ mL subcutaneous solution) 20 Subcutaneous Once a day q andrew Unchanged metoprolol (Lopressor 25mg--USE metoprolol tartrate 25 mg oral tablet) 1 tab(s) Every day Unchanged sotalol (sotalol 80 mg oral tablet) 1 tab(s) by mouth Daily at bedtime What How Much When Why Comments Stop Taking acetaminophen-hydrocodone (acetaminophen-hydrocodone 325 mg-7.5 mg oral tablet) 1 tab(s) by mouth Every 6 hours as needed for as needed for pain Chronic left hip pain Chronic lumbar pain Duration: 7 Days Stop Taking lisinopril (lisinopril 40 mg oral tablet) 1 tab(s) by mouth Once a day Please take this list to your next doctor s visit. Bring all medications you take, including over the counter medications, herbals and other supplements with you to your doctor s visit. Patients and families are reminded to discard old lists and to update any records with all medication providers or retail pharmacies. Education Materials Sepsis, Self Care, Adult Sepsis is a serious illness that may require intensive care in the hospital. The following information explains what you need to know in order to manage your condition after you are discharged from the hospital. What are the risks? After being treated for sepsis and discharged from the hospital, you may be at a higher risk for certain problems. These problems may be physical or mental. Physical problems: Weakness and tiredness. Shortness of breath. Pain in many areas of the body. Difficulty walking. Dry, itchy skin. Lack of appetite. This may lead to weight loss. Organ failure. Mental problems: Difficulty sleeping. Depression. Confusion. Anxiety and worry caused by having gone through a bad experience (post-traumatic stress disorder,PTSD). Low self-esteem. Follow these instructions at home: Medicines Take gsph-eky-jgerhkl and prescription medicines only as told by your health care provider. If you were prescribed an antibiotic, antiviral, or antifungal medicine, take it as told by your health care provider. Do not stop taking the medicine even if you start to feel better. Eating and drinking Eat a healthy diet that includes plenty of vegetables, fruits, whole grains, low-fat dairy products, and lean protein. Ask your health care provider if you should avoid certain foods. Drink enough fluid to keep your urine pale yellow. Alcohol use Do not drink alcohol if: ? Your health care provider tells you not to drink. ? You are , may be , or are planning to become . If you drink alcohol, limit how much you use to: ? 0 1 drink a day for women. ? 0 2 drinks a day for men. ? Be aware of how much alcohol is in your drink. In the [place] one drink equals one 12 oz bottle of beer (355 mL), one 5 oz glass of wine (148 mL), or one 1 oz glass of hard liquor (44 mL). Activity Rest and gradually return to your normal activities. Ask your health care provider what activities are safe for you. Avoid sitting for a long time without moving. Get up to take short walks every 1 2 hours. This is important to improve blood flow and breathing. Ask for help if you feel weak or unsteady. Try to set small, achievable goals each week, such as dressing yourself, bathing, or walking up thestairs. It may take a while to rebuild your strength. Try to exercise regularly if you feel healthy enough to do so. Ask your health care provider what exercises are safe for you. Preventing infection Keep your vaccinations up to date. Get the flu shot every year. Wash your hands often using soap and water. Use hand recruiting internship if soap and water are not available. Practice good hygiene. Keep cuts clean and covered until healed. Managing stress Talk with your health care provider or counselor about ways to reduce stress. He or she may suggest: Meditation, muscle relaxation, and breathing exercises. Talk therapy. Spending time on hobbies and activities that you enjoy. General instructions Get the right amount and quality of sleep. Most adults need 7 9 hours of sleep each night. To help with sleep: ? Keep your bedroom cool and dark. ? Do not eat a heavy meal within one hour of bedtime. ? Do not drink alcohol or caffeinated drinks before bed. ? Avoid screen time, such as television, computers, tablets, or cell phones before bed. Do not use any products that contain nicotine or tobacco, such as cigarettes, e- cigarettes, and chewing tobacco. If you need help quitting, ask your health care provider. Talk to trusted family members and friends about your condition. Explain your symptoms to them, andlet them know that you are working with a health care provider to treat your condition. This can provide you with one way to get support and guidance. Keep all follow-up visits as told by your health care provider. This is important. Questions to ask your health care provider: What physical and emotional changes do I need to report? Do I need to have someone with me all the time? Is it safe for me to drive? Contact a health care provider if you: Do not feel like you are getting better or regaining strength. Have muscle or joint pain. Frequently feel tired. Are having trouble coping with your recovery. Have nightmares, or trouble falling asleep or staying asleep. Feel sad, down, or depressed more often than not, every day for more than 2 weeks. Have difficulty concentrating. Feel irritable or you cry for no reason. Get help right away if you: Have difficulty breathing. Have a rapid or skipping heartbeat. Become confused or disoriented. See, hear, or feel things that do not exist (hallucinations). Have a high fever. Have an infection that is getting worse or not getting better. You have thoughts of hurting yourself or others. If you ever feel like you may hurt yourself or others, or have thoughts about taking your own life,get help right away. You can go to your nearest emergency department or call: Your local emergency services (911 in the [place] A suicide crisis helpline, such as the National Suicide Prevention Lifeline at . Thisis open 24 hours a day. Summary Sepsis is a serious illness that may require intensive care in a hospital. You may experience long-term health effects after you are discharged from the hospital. Try to set small, achievable goals each week, such as dressing yourself, bathing, or walking up thestairs. It may take a while to rebuild your strength. Keep all follow-up visits as told by your health care provider. This is important. Know what symptoms you should get help right away for. This information is not intended to replace advice given to you by your health care provider. Make sure you discuss any questions you have with your health care provider. Document Released: 10/13/2018 Document Revised: 10/13/2018 Document Reviewed: 10/13/2018 [employer] Patient Education 2020 [employer] Additional Information VACCINATE! IT SAVES LIVES! Members of the community who have not yet received the COVID-19 vaccine and would like to receive it can visit one of [facility] vaccine clinics. There are many vaccine clinic locations within the [facility]. For locations and available times, please visit [email or web address].[email or web address]/. It is important to note that some COVID mobile vaccine clinics are held outdoors and may be canceled in rainy or stormy conditions. To learn more about pediatric vaccinations (ages 5-11), we invite you to visit the [facility] webpage. https://www.[facility].org/pages/1791-Whcre-Utfdxbmwblz-Yirngtpolq-Kylha-Ckk stions.htmlTo learn more about the COVID-19 vaccine, we invite you to visit the CDC website for a list of frequently asked questions.https://www.cdc.gov/coronavirus/2019-ncov/vaccines/faq.html [facility] Patient Portal Access Instructions: Stay connected with your healthcare team and access your personal medical information anytime with the [facility] Patient Portal. Please follow the directions below to create your [facility]um account: 1.Access the email account you provided upon registration to the hospital/physician office.2.Look for an invitation email from [facility].3.Open the email and access the invitation link: AcceptInvitation to [facility].4.Fill in the required virgen to create your account. To access your account, visit [employer]. Click the blue button labeled Access Patient Portal and then log in with the username and password that you created in the steps above. You will be able to view your test results, lab results, a summary of your visits, upcoming appointments and more. There is also a convenient messaging option where you can send secure messages to your [employer] Softwarevider. In addition, you will have the ability to download any documents or summaries to your computer and/or send the information securely to a physician. Remember that your healthcare information is confidential, so carefully consider who you will allowto register on the [facility] Patient Portal for access to your information. You can also access the [facility] Patient Portal on the [facility] krishna. Simply click on Patient Portal and then log into your account. If you would like to receive a full copy of your medical records, please contact the [facility] Medical Records Department by calling [phone], Tuesday through Tuesday between 8 a.m. and 4:30 p.m. HOW TO SAFELY DISPOSE OF PRESCRIPTION MEDICATIONS Please use one of the following methods to safely dispose of your unused medications. 1.Use a drug disposal kit: the drug disposal pouch allows you to safely discard your old and unuseddrugs. Ask your nurse to give you one when you are discharged.2.Visit a local take-back location: Many local pharmacies and police departments have programs that collect old and unwanted prescriptiondrugs. Call your local pharmacy or go to http://Inter[employer]/7O8Du0o to find one close to you.3.Make use of household items: Use cat litter or old coffee grounds to dispose medications if other options arenot available. Mix your drugs with these household products, seal them in an airtight container andthrow it into the garbage. Call [facility]: [phone] to be sure your drugs can be disposed of in this way. Some medicines may require a different approach.4.Never flush your medications down the toilet. IF YOU HAVE BEEN PRESCRIBED AN OPIOID FOR PAIN If you have been prescribed an opioid (such as hydrocodone, oxycodone or morphine), it is critical to understand the possible side effects and risks of opioid pain medications. Even when taken as directed, opioids can have several side effects including: Tolerance, meaning you might need to take more of a medication for the same pain relief. Nausea, vomiting and/or constipation. Sleepiness, dizziness, dry mouth, confusion, depression or itching. Physical dependence, meaning you have withdrawal symptoms when a medication is stopped, can develop within a few days. KNOW YOUR RESPONSIBILITIES It is important to know exactly how much and how often to take the opioid pain medications you are prescribed. Never take opioids in higher amounts or more often than prescribed. Do not combine opioids with alcohol or other drugs that cause drowsiness, such as benzodiazepines, also known as benzos, including diazepam and alprazolam, muscle relaxants or sleep aids. Never sell or share prescription opioids. This is illegal. Store opioids in a secure place and out of reach of others (including children, family, friends and visitors). The last page of this document has been signed and retained as a CHART COPY. Signatures Patient Education Materials Sepsis, Self Care, Adult Medication Leaflets My discharge plan and instructions have been reviewed and explained to me and MICHAEL Beavers LAURA M understand my current condition and have read and understand these discharge instructions. I have received a written copy of the plan/instructions. If I have questions, I am aware that I should contact my doctor. 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 Signature: Date/Time: Relationship to Patient: Witness Name/Signature: Date/Time: [facility] [id number] Discharge summary Date of Service 10.14.22 Discharge Diagnosis Necrotizing fasciitis (M72.6 - ICD-10-CM) Chronic respiratory failure with hypoxia (J96.11 - ICD-10-CM) Cutaneous abscess of back [any part, except buttock] (L02.212 - ICD-10-CM) Cellulitis of neck (L03.221 - ICD-10-CM) Cellulitis of left upper limb (L03.114 - ICD-10-CM) Bacteremia (R78.81 - ICD-10-CM) Type 2 diabetes mellitus without complications (E11.9 - ICD-10-CM) Essential (primary) hypertension (I10 - ICD-10-CM) Obstructive sleep apnea (adult) (pediatric) (G47.33 - ICD-10-CM) Type 2 diabetes mellitus with diabetic polyneuropathy (E11.42 - ICD-10-CM) Sick sinus syndrome (I49.5 - ICD-10-CM) Paroxysmal atrial fibrillation (I48.0 - ICD-10-CM) Myositis, unspecified (M60.9 - ICD-10-CM) Atrial fibrillation (I48.91 - ICD-10-CM) Chronic respiratory failure (J96.10 - ICD-10-CM) Diabetes mellitus type 2, insulin dependent (E11.9 - ICD-10-CM) Necrotizing fasciitis (M72.6 - ICD-10-CM) Additional Orders: Other status: BMP,10/14/22 5:00:00 EDT, Next AM Draw (one day only), Blood, Once, Stop date 10/14/22 5:00:00 EDT(Complete) Other status: CBC,10/14/22 5:00:00 EDT, Next AM Draw (one day only), Blood, Once, Stop date 10/14/22 5:00:00 EDT(Complete) Ordered: Discharge,10/14/22 14:48:00 EDT, Discharged to: [facility] Living Facility Ordered: Discharge Blood Glucose Monitoring,When to Test: Before each meal and at bedtime Ordered: NS 500 mL Bolus,Start: 10/14/22 14:45:00 EDT, Dose = 500 mL, Soln, IV Bolus, Once, Stop: 10/14/22 14:45:00 EDT, Rate: 250 mL, 10/14/22 14:39:00 EDT Ordered: Transfer of Care Activity,Activity As Tolerated, 10/14/22 14:48:00 EDT Ordered: Transfer of Care Admission Level of Care,Level of Care SNF, 10/14/22 14:48:29 EDT Ordered: Transfer of Care Code Status,Full Code, Constant Order Ordered: Transfer of Care Communication Order,Expect less than 30 day stay., 10/14/22 14:48:29 EDT Ordered: Transfer of Care Diet,Type of Diet: Regular Diet, Calories Permitted: 1800 kcal, 10/14/22 14:48:00 EDT Ordered: Transfer of Care IV/PICC,Routine care per facility guidelines., 10/14/22 14:48:29 EDT Ordered: Transfer of Care Labwork,cbc bmp, elev creatinine, follow-up within: 72 hours, Results Notify to: house physician, 10/14/22 14:48:00 EDT Ordered: Transfer of Care OT,Reason for therapy: asthenia, 10/14/22 14:48:00 EDT Ordered: Transfer of Care Orders Electronically Signed By,10/14/22 14:48:00 EDT, CAROL ORR MD Ordered: Transfer of Care PT,Reason for therapy: asthenia, 10/14/22 14:48:00 EDT Ordered: Transfer of Care Prognosis,Fair, Patient Aware: Yes Ordered: Transfer of Care Rehab Potential,Rehab potential fair, 10/14/22 14:48:29 EDT Ordered: Transfer of Care Wound Care,Shoulder, left, wound vac, continuous 125mmHG, sun, tues, thurs, black sponge, 10/14/22 14:48:00 EDT Ordered: amLODIPine 10 mg oral tablet,Dose : 10 mg = 1 tab(s), Oral, qDay, # 30 tab(s), 0 Refill(s), other reason (Rx), 170.2, cm, 09/30/22 22:45:00 EDT, Height, kg, 09/30/22 22:45:00 EDT, Dosing Weight Ordered: busPIRone,Start: 10/14/22 9:20:00 EDT, Dose = 5 mg, = 1 tab(s), Oral, BID, 10/14/22 9:20:00 EDT Ordered: busPIRone 5 mg oral tablet,Dose : 5 mg = 1 tab(s), Oral, BID, 0 Refill(s) Ordered: miconazole 2% topical powder,Apply 1 krishna, Topical, BID, 0 Refill(s), Powder, 99.3 Hospital Course a 72-year-old female with a past medical history of tachybradycardia syndrome status post pacemakerplacement, insulin-dependent type 2 diabetes mellitus, A- fib on Coumadin, chronic hypoxic respiratory failure on 2 L of oxygen initially presented to [facility] and later transferred to [facility] for left shoulder/neck cellulitis/myositis. General surgery on consult, following, she had debridement for abscess on left upper back on 10/03/2022, repeat debridement was performed on 10/05/2022 Wound cultures growing MRSA. Blood cultures growing staph hominis which was discussed with ID suspected to be contaminant. Infectious disease following recommending to continue IV daptomycin for 6 weeks (physical prescription has been left in her chart by ID team). Please obtain CBC, differential, CMP, and CPK, every Tuesday and send results to fax number [phone] Alvarado PICC line has been placed. We will have patient follow-up with infectious disease and general surgery on outpatient basis. Wound VAC instructions per general surgery order. Coumadin was briefly interrupted for aforementioned surgical interventions. Coumadin has been restarted INR currently 1.7 will discharge with full dose Lovenox to complete Coumadin bridge over the next 2 days. Recommend obtaining INR at day 2 (10/14) and extending or stopping Coumadin Bridge based on those results. Goal INR 2-3. Patient was evaluated by PT recommending SNF patient will be discharged back to nursing facility for further care. Discussed treatment plan with patient at bedside answered all questions. She did have an elevated creatinine today, 1.26 with a baseline of 0.8. She was givena fluid bolus,lisinooril held, lasix to be held a few days, repeat labs will need to be done. Norvasc increased to compensate for holding the lisinopril. She has been c/o anxiety, has been started on buspar. Medically stable for discharge today. Has appointment with Dr. Burnett on 10/21/2022 at 9:15 AM Allergies Bystolic (Irregular heart beat) Cardizem (Dizziness) Tenormin (Bradycardia) Zebeta (Unknown) biaxin cipro glucaphage penicillin vancomycin Consults Consult to Physician - Ordered -- 09/30/22 22:41:00 EDT, RYAN ALVARADO BA, MD, Routine, cellulitis Consult to Physician - Ordered -- 10/02/22 9:00:00 EDT, MAXI MORILLO MD, Routine, Patient with neck, left shoulder , upper back cellulitis and myositis Consult to Physician - Ordered -- 10/06/22 12:48:00 EDT, RYAN ALVARADO BA, MD, Routine, antibiotic recs for dc Physical Exam Vitals and Measurements T: 37.3 C (Oral) TMIN: 36.4 C (Oral) TMAX: 37.4 C (Oral) HR: 72(Apical) RR: 18 BP: 121/72 SpO2: 99% Weight Dosing Weight: 99.3 kg (10/02/22) Physical Exam General: No acute distress. Alert and Appropriate Skin: No rash. Warm, Dry, upper back wound vac Lungs: Bilaterally clear breath sounds with no crepitation or wheeze. Cardiovascular: Heart is regular rhythm, S1S2, No extra-audible heart tones Abdomen: Abdomen is soft, nontender. Bowel sounds positive all four quadrants. No hepatosplenomegaly noted. Extremities: No clubbing, cyanosis or edema. Neurological: The patient is awake, oriented to person, place and time. Following simple commands, moving all extremities. DVT PROPHYLAXIS-lovenox Code Status Code Status - Ordered -- 09/30/22 22:41:00 EDT, Full Code, Constant Order Admission Date 09.30.22 Discharge Date 10.14.22 Patient Instructions Coumadin has been restarted INR currently 1.7 will discharge with full dose Lovenox to complete Coumadin bridge over the next 2 days. Recommend obtaining INR at day 2 (10/16) and extending or stoppingCoumadin Bridge based on those results. Goal INR 2-3. Please obtain CBC, differential, CMP, and CPK, every Tuesday and send results to fax number [phone] Alvarado Has appointment with Dr. Burnett on 10/21/2022 at 9:15 AM Medications New Prescription [id number] Milligram by mouth every 4 hours as needed Pain, scale 1-6. busPIRone (busPIRone 5 mg oral tablet)1 tab(s) by mouth two (2) times a day. [id number] Milligram IV Piggyback once a day. enoxaparin (Lovenox)100 Milligram Subcutaneous every 12 hours for 2 Days. miconazole topical (miconazole 2% topical powder)1 application Topical two (2) times a day. Changed amLODIPine (amLODIPine 10 mg oral tablet)1 tab(s) by mouth once a day. Refills: 0. furosemide (Lasix 40 mg oral tablet)1 tab(s) by mouth once a day. start on 10/18/22. Refills: 2. insulin lispro (HumaLOG) (HumaLOG 100 units/mL subcutaneous solution)Give 0-10 units/dose Subcutaneous three (3) times a day before meals. insulin lispro (HumaLOG) (insulin lispro (Humalog) 100 units/mL injectable solution)5 unit(s) Subcutaneous three (3) times a day before meals. warfarin (warfarin 5 mg oral tablet)1 tab(s) by mouth once a day. Refills: 3. Unchanged atorvastatin (atorvastatin 20 mg oral tablet)1 tab(s) by mouth once a day. cholecalciferol (Vitamin D3 125 mcg (5000 intl units) oral capsule)1 cap by mouth once a day. DME (Blood Glucose Test Machine)Dispense 1 glucometer, use as directed 4 times a day to test blood sugar. Diagnosis is E11.9. Frequent testing due to insulin dependence and fluctuating blood sugars..Refills: 0. DME (Blood Glucose Test Strips)Dispense glucose test strips, #360, use 1 strip as directed 4 times daily to test blood sugar. Diagnosis: E11.9. Frequent testing due to insulin use and fluctuating blood sugars.. Refills: 3. DME (Lancets)Dispense ultrafine lancets, #360, use once lancet as directed 4 times daily to test blood sugar. Diagnosis: E11.9. Frequent testing due to insulin dependence and fluctuating blood sugars.. Refills: 3. insulin glargine (insulin glargine-yfgn 100 units/mL subcutaneous solution)20 Subcutaneous once a day. q andrew. metoprolol (Lopressor 25mg--USE metoprolol tartrate 25 mg oral tablet)1 tab(s) every day. sotalol (sotalol 80 mg oral tablet)1 tab(s) by mouth daily at bedtime. Refills: 5. Discontinued acetaminophen-hydrocodone (acetaminophen-hydrocodone 325 mg-7.5 mg oral tablet)1 tab(s) by mouth every 6 hours as needed as needed for pain for 7 Days. Refills: 0. lisinopril (lisinopril 40 mg oral tablet)1 tab(s) by mouth once a day. Refills: 3. Follow Up Follow Up with RYAN ALVARADO BA, MD, Infectious Disease, Infectious Disease Group When Within 5 to 7 days Where: [facility] [place] [id number] [place] [address]- Follow Up Appointments Transfer of Care OT - Ordered -- Reason for therapy: asthenia, 10/14/22 14:48:00 EDT Transfer of Care PT - Ordered -- Reason for therapy: asthenia, 10/14/22 14:48:00 EDT Follow Up Labs/Studies Discharge Labs Transfer of Care Labwork - Ordered -- cbc bmp, elev creatinine, follow-up within: 72 hours, Results Notify to: house physician, 10/14/22 14:48:00 EDT Discharge Studies No Follow-up Studies Discharge Diet Transfer of Care Diet - Ordered -- Type of Diet: Regular Diet, Calories Permitted: 1800 kcal, 10/14/22 14:48:00 EDT Discharge Activity Transfer of Care Activity - Ordered -- Activity As Tolerated, 10/14/22 14:48:00 EDT Condition on Discharge stable Discharge Disposition snf Information Provided To patient, daughter Time Spent >35 min Split/shared visit with Dr. 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 Presented to the hospital with worsening lower extremity swelling, erythema, pain, open wounds. She was seen in consultation by skin team. Apparently the patient ran out of supplies for her dressing changes, home health care quit seeing the patient due to noncompliance. There was concern for cellulitis of bilateral lower extremities. She had a wound culture with mixed es, plan is for her to go home with Levaquin and clindamycinfor 10 days. She was seen in consultation by the wound care team who recommended dressing changes and outpatient follow-up. Patient was complaining of leg pain, gabapentin was added. Today she has nocomplaints chest pain or shortness of breath. Reports she is eating well. No nausea, vomiting or abdominal pain. No diarrhea or constipation. She was seen by physical therapy and they felt that she had no home-going needs. She has been accepted by home health care facility and plan is for dischargehome today. Objective Vitals and Measurements T: 37.0 C (Oral) TMIN: 36.7 C (Oral) TMAX: 37.2 C (Oral) HR: 91(Apical) RR: 20 BP: 122/70 SpO2: 96% Intake and Output 7AM Yesterday to 7AM Today Intake and Output (Last 24 hours) Intake Output Stool Count 1.00 Total Summary Total Intake 0.00 Total Output 0.00 Fluid Balance 0.00 Physical Exam Weight Dosing Weight: 99.3 kg (10/02/22) Vitals Signs(Last 24 hrs)__ Last Charted Minimum Maximum Temp 37.0(OCT 13 06:48) 36.7(OCT 12 18:57) 37.2(OCT 12 23:20) Heart Rate 91(OCT 13 09:20) 91(OCT 13 09:20) 91(OCT 13 09:20) Resp Rate 20(OCT 13 06:48) 18(OCT 12 18:57) 20(OCT 12 23:20) SBP 122(OCT 13 06:48) 119(OCT 12 18:57) 135(OCT 12 23:20) DBP 70(OCT 13 06:48) 70(OCT 13 06:48) 75(OCT 12 18:57) Physical Exam General: No acute distress. Alert and Appropriate Skin: No rash. Warm, Dry, upper back wound vac Lungs: Bilaterally clear breath sounds with no crepitation or wheeze. Cardiovascular: Heart is regular rhythm, S1S2, No extra-audible heart tones Abdomen: Abdomen is soft, nontender. Bowel sounds positive all four quadrants. No hepatosplenomegaly noted. Extremities: No clubbing, cyanosis or edema. Neurological: The patient is awake, oriented to person, place and time. Following simple commands, moving all extremities. DVT PROPHYLAXIS-lovenox Medications Medications (25) Active Scheduled: (17) amLODIPine 5 mg tablet 5 mg 1 tab(s), Oral, qDay atorvastatin 20 mg tablet 20 mg 1 tab(s), Oral, qDay cholecalciferol 125 mcg capsule (Vit D3 5000 unit(s)) 125 mcg 1 cap(s), Oral, qDay DAPTOmycin 600 mg 12 mL, IV Piggyback, qDay enoxaparin 100 mg/mL syringe 100 mg 1 mL, Subcutaneous, q12h furosemide 40 mg tablet 40 mg 1 tab(s), Oral, qDay insulin glargine 20 unit(s) 0.2 mL, Subcutaneous (INT), BID insulin lispro 100 units/mL Soln (3 mL) 8 unit(s) 0.08 mL, Subcutaneous, TIDAC insulin lispro 100 units/mL Soln (3 mL) Give 0-10 units/dose, Subcutaneous, TIDAC lidocaine 1% (MPF) 2 mL vial pf 30 mg 3 mL, Intradermal, prep pharm lisinopril 20 mg tablet 40 mg 2 tab(s), Oral, qDay metoprolol tartrate 25 mg tablet 25 mg 1 tab(s), Oral, Daily miconazole topical 2% Powder 1 krishna, Topical, BID Misc communication order 1 EA, Miscellaneous, Daily Pharmacy Consult 1 EA, Miscellaneous, Daily sotalol 80 mg Tablet 80 mg 1 tab(s), Oral, qHS warfarin 5 mg tablet 5 mg 1 tab(s), Oral, qDay Continuous: (0) PRN: (8) acetaminophen 325 mg Tablet 650 mg 2 tab(s), Oral, q4h acetaminophen-OXYcodone 325 mg-5 mg Tablet 1 tab(s), Oral, q4h acetaminophen-OXYcodone 325 mg-5 mg Tablet 2 tab(s), Oral, q4h albuterol - ipratropium 2.5 mg-0.5 mg/3 mL Inhal Valerie UD 3 mL, Inhalation, q4hRT HYDROmorphone 0.5 mg/0.5 mL PF syringe 0.5 mg 0.5 mL, IV Push, q2h hydromorphone 1 mg/mL (1mL) INJ 1 mg 1 mL, IV Push, q2h melatonin 5 mg tablet 5 mg 1 tab(s), Oral, qHS ondansetron 2 mg/ 1 mL 2 mL INJ 4 mg 2 mL, IV Push, q4h Lab Results 10/13 04:27 WBC: 11.5 H Hgb: 11.9 L Hct: 36.0 Platelet: 239 Neutrophil %: 73.6 Protime: 21.8 H PT International Ratio: 1.8 Glucose Level: 188 H Sodium Level: 139 Potassium Level: 4.4 BUN: 36.0 H Creatinine Lvl (s): 1.16 10/12 03:39 Protime: 21.6 H PT International Ratio: 1.8 EKG No qualifying data available. Assessment/Plan 1. Necrotizing fasciitis 2. Diabetes mellitus type 2, insulin dependent 3. Atrial fibrillation 4. Chronic respiratory failure Patient admitted with sepsis, bacteremia, necrotizing fasciitis status postdebridement with wound VAC placement. Infectious disease following, patient is planned for discharge to care home facility with 4-6 weeks of IV daptomycin. Patient seems to be doing well today. Awaiting precertification. Patient has a history of type 2 diabetes, blood sugars reviewed and stable. History of atrial fibrillation, typically on Coumadin at home, currently on treatment dose Lovenox while bridging with Coumadin, INR 1.8 today. Continue Coumadin and repeat labs tomorrow. History of chronic respiratory failure on 2 L nasal cannula as at home, respiratory status at baseline. Medically stable for discharge when precertification has been obtained. Split/shared visit with Dr. Orr Time Spent I spent a total of 36 minutes reviewing the patient s diagnostic labs/tests, seeing and examining the patient and documenting in the medical record, see assessment for further detail. Digitally Signed by REZA MELCHOR on 10/13/2022 02:44 PM [facility] [id number] Note Skin assessment completed. No pressure injuries noted. Patient does have moisture associated skin damage to bilateral buttocks, groin/abdominal skin folds. Proposed order for Miconazole powder. Skin care orders provided. Digitally Signed by MICHAEL Harmon June on 10/12/2022 04:04 PM [facility] [id number] Discharge summary Date of Service 10/12/2022 Discharge Diagnosis Necrotizing fasciitis (M72.6 - ICD-10-CM) Chronic respiratory failure with hypoxia (J96.11 - ICD-10-CM) Cutaneous abscess of back [any part, except buttock] (L02.212 - ICD-10-CM) Cellulitis of neck (L03.221 - ICD-10-CM) Cellulitis of left upper limb (L03.114 - ICD-10-CM) Bacteremia (R78.81 - ICD-10-CM) Type 2 diabetes mellitus without complications (E11.9 - ICD-10-CM) Essential (primary) hypertension (I10 - ICD-10-CM) Obstructive sleep apnea (adult) (pediatric) (G47.33 - ICD-10-CM) Type 2 diabetes mellitus with diabetic polyneuropathy (E11.42 - ICD-10-CM) Sick sinus syndrome (I49.5 - ICD-10-CM) Paroxysmal atrial fibrillation (I48.0 - ICD-10-CM) Myositis, unspecified (M60.9 - ICD-10-CM) Additional Orders: Other status: LORazepam,Start: 10/12/22 10:15:00 EDT, Dose = 0.25 mg, = 0.5 tab(s), Oral, Once, Stop: 10/12/22 10:15:00 EDT, 0, 10/12/22 10:04:00 EDT(Complete) Hospital Course a 72-year-old female with a past medical history of tachybradycardia syndrome status post pacemakerplacement, insulin-dependent type 2 diabetes mellitus, A- fib on Coumadin, chronic hypoxic respiratory failure on 2 L of oxygen initially presented to [facility] and later transferred to [facility] for left shoulder/neck cellulitis/myositis. General surgery on consult, following, she had debridement for abscess on left upper back on 10/03/2022, repeat debridement was performed on 10/05/2022 Wound cultures growing MRSA. Blood cultures growing staph hominis which was discussed with ID suspected to be contaminant. Infectious disease following recommending to continue IV daptomycin for 6 weeks (physical prescription has been left in her chart by ID team). Please obtain CBC, differential, CMP, and CPK, every Tuesday and send results to fax number [phone] Alvarado PICC line has been placed. We will have patient follow-up with infectious disease and general surgery on outpatient basis. Wound VAC instructions per general surgery order. Coumadin was briefly interrupted for aforementioned surgical interventions. Coumadin has been restarted INR currently 1.8 will discharge with full dose Lovenox to complete Coumadin bridge over the next 2 days. Recommend obtaining INR at day 2 (10/14) and extending or stopping Coumadin Bridge based on those results. Goal INR 2-3. Patient was evaluated by PT recommending SNF patient will be discharged back to nursing facility for further care. Discussed treatment plan with patient at bedside answered all questions. Allergies Bystolic (Irregular heart beat) Cardizem (Dizziness) Tenormin (Bradycardia) Zebeta (Unknown) biaxin cipro glucaphage penicillin vancomycin Consults Consult to Physician - Ordered -- 09/30/22 22:41:00 EDT, RYAN ALVARADO BA, MD, Routine, cellulitis Consult to Physician - Ordered -- 10/02/22 9:00:00 EDT, MAXI MORILLO MD, Routine, Patient with neck, left shoulder , upper back cellulitis and myositis Consult to Physician - Ordered -- 10/06/22 12:48:00 EDTROSLYN BADIE BA MD, Routine, antibiotic recs for dc Physical Exam Vitals and Measurements T: 36.6 C (Oral) TMIN: 36.6 C (Oral) TMAX: 37.7 C (Oral) HR: 91(Apical) RR: 18 BP: 117/73 SpO2: 97% Weight Dosing Weight: 99.3 kg (10/02/22) Code Status Code Status - Ordered -- 09/30/22 22:41:00 EDT, Full Code, Constant Order Admission Date 09/30/2022 Discharge Date 10/12/2022 Medications New Prescription [id number] Milligram by mouth every 4 hours as needed Pain, scale 1-6. [id number] Milligram IV Piggyback once a day. enoxaparin (Lovenox)100 Milligram Subcutaneous every 12 hours for 2 Days. Changed insulin lispro (HumaLOG) (HumaLOG 100 units/mL subcutaneous solution)Give 0-10 units/dose Subcutaneous three (3) times a day before meals. insulin lispro (HumaLOG) (insulin lispro (Humalog) 100 units/mL injectable solution)5 unit(s) Subcutaneous three (3) times a day before meals. warfarin (warfarin 5 mg oral tablet)1 tab(s) by mouth once a day. Refills: 3. Unchanged acetaminophen-hydrocodone (acetaminophen-hydrocodone 325 mg-7.5 mg oral tablet)1 tab(s) by mouth every 6 hours as needed as needed for pain for 7 Days. Refills: 0. amLODIPine (amLODIPine 5 mg oral tablet)1 tab(s) by mouth once a day. Refills: 3. atorvastatin (atorvastatin 20 mg oral tablet)1 tab(s) by mouth once a day. cholecalciferol (Vitamin D3 125 mcg (5000 intl units) oral capsule)1 cap by mouth once a day. DME (Blood Glucose Test Machine)Dispense 1 glucometer, use as directed 4 times a day to test blood sugar. Diagnosis is E11.9. Frequent testing due to insulin dependence and fluctuating blood sugars..Refills: 0. DME (Blood Glucose Test Strips)Dispense glucose test strips, #360, use 1 strip as directed 4 times daily to test blood sugar. Diagnosis: E11.9. Frequent testing due to insulin use and fluctuating blood sugars.. Refills: 3. DME (Lancets)Dispense ultrafine lancets, #360, use once lancet as directed 4 times daily to test blood sugar. Diagnosis: E11.9. Frequent testing due to insulin dependence and fluctuating blood sugars.. Refills: 3. furosemide (Lasix 40 mg oral tablet)1 tab(s) by mouth once a day. Refills: 2. insulin glargine (insulin glargine-yfgn 100 units/mL subcutaneous solution)20 Subcutaneous once a day. q andrew. lisinopril (lisinopril 40 mg oral tablet)1 tab(s) by mouth once a day. Refills: 3. metoprolol (Lopressor 25mg--USE metoprolol tartrate 25 mg oral tablet)1 tab(s) every day. sotalol (sotalol 80 mg oral tablet)1 tab(s) by mouth daily at bedtime. Refills: 5. Follow Up Follow Up with RYAN ALVARADO BA, MD, Infectious Disease, Infectious Disease Group When Within 5 to 7 days Where: [facility] [place] [id number] [place] [address]- Follow Up Appointments No qualifying data available. Follow Up Labs/Studies Discharge Labs No Follow-up Labs Discharge Studies No Follow-up Studies Discharge Diet No qualifying data available. Discharge Activity No qualifying data available. Condition on Discharge Stable Discharge Disposition SNF Information Provided To Patient at bedside Time Spent Greater than 30 minutes was spent reviewing chart, placing orders developing treatment plan with greater than 50% of time spent at bedside counseling/coordinating care Digitally Signed by CAROL ORR MD on 10/12/2022 01:26 PM Digitally Signed by CAROL ORR MD on 10/13/2022 07:40 AM [facility] [id number] Note Date of Service 10/11/2022 Chief Complaint Transferred from outside hospital for left shoulder/neck/cellulitis/myositis Subjective Patient is a 72-year-old female with a past medical history of tachybradycardia syndrome status post pacemaker placement, insulin-dependent type 2 diabetes mellitus, A-fib on Coumadin, chronic hypoxic respiratory failure on 2 L of oxygen initially presented to [facility] and later transferred to [facility] for left shoulder/neck cellulitis/myositis. General surgery on consult, following, she had debridement for abscess on left upper back on 10/03/2022, will repeat debridement again tomorrow. Wound cultures growing MRSA. Blood cultures growing staph hominis is nonsignificant as per ID. Continue daptomycin and Flagyl for now, She was found to have uncontrolled diabetes mellitus with HbA1c of 11.8, Lantus and Premeal insulindose increased in hospital. She has history of A-fib, Coumadin was on hold, vitamin K was also given prior to surgery, on heparin infusion. Status post D and debridement 10/05. Continued on IV heparin, Coumadin has been started.Infectious disease following recommending to continue IV daptomycin for 6 weeks. Patient has a PICCline. Patient seen and examined today. Pain controlled. On nasal cannula oxygen. Tolerating diet. PT/INR is 1.4 Objective Vitals and Measurements T: 36.9 C (Oral) TMIN: 36.4 C (Oral) TMAX: 37.0 C (Oral) HR: 70 RR: 18 BP: 132/72 SpO2: 95% Intake and Output 7AM Yesterday to 7AM Today Intake and Output (Last 24 hours) Intake Administration Information 102.22 Oral Intake 480.00 Supplement Intake 120.00 Output Stool Count 2.00 Urine Count 1.00 Total Summary Total Intake 702.22 Total Output 0.00 Fluid Balance 702.22 Physical Exam HEENT: No Palor, PERRL, No JVD, No carotid bruit CVS: S1 S2 heard, regular rate and rhythm, no murmurs Lungs: Decreased breath sounds bibasilar Left shoulder base of the neck wound VAC seen Abdomen: soft, non distended, bowel sounds +, no tenderness Extremities: No edema, No cyanosis or clubbing INSULATION ESTIMATOR: Alert, No focal deficits identified. Skin: No visible rashes Weight Dosing Weight: 99.3 kg (10/02/22) Medications Medications (23) Active Scheduled: (14) amLODIPine 5 mg tablet 5 mg 1 tab(s), Oral, qDay atorvastatin 20 mg tablet 20 mg 1 tab(s), Oral, qDay cholecalciferol 125 mcg capsule (Vit D3 5000 unit(s)) 125 mcg 1 cap(s), Oral, qDay DAPTOmycin 600 mg 12 mL, IV Piggyback, qDay furosemide 40 mg tablet 40 mg 1 tab(s), Oral, qDay insulin glargine 20 unit(s) 0.2 mL, Subcutaneous (INT), BID insulin lispro 100 units/mL Soln (3 mL) 8 unit(s) 0.08 mL, Subcutaneous, TIDAC insulin lispro 100 units/mL Soln (3 mL) Give 0-10 units/dose, Subcutaneous, TIDAC lidocaine 1% (MPF) 2 mL vial pf 30 mg 3 mL, Intradermal, prep pharm lisinopril 20 mg tablet 40 mg 2 tab(s), Oral, qDay metoprolol tartrate 25 mg tablet 25 mg 1 tab(s), Oral, Daily Misc communication order 1 EA, Dinacellaneous, Daily Pharmacy Consult 1 E[place], Daily sotalol 80 mg Tablet 80 mg 1 tab(s), Oral, qHS Continuous: (1) heparin 25,000 unit(s) [1000 unit(s)/hr] + Dextrose 5% Premix Diluent 250 mL 250 mL, Intravenous, 10 mL/hr PRN: (8) acetaminophen 325 mg Tablet 650 mg 2 tab(s), Oral, q4h acetaminophen-OXYcodone 325 mg-5 mg Tablet 1 tab(s), Oral, q4h acetaminophen-OXYcodone 325 mg-5 mg Tablet 2 tab(s), Oral, q4h albuterol - ipratropium 2.5 mg-0.5 mg/3 mL Inhal Valerie UD 3 mL, Inhalation, q4hRT heparin 5,000 units/mL (1 mL) vial 4,000 unit(s) 0.8 mL, IV Push, q6h HYDROmorphone 0.5 mg/0.5 mL PF syringe 0.5 mg 0.5 mL, IV Push, q2h hydromorphone 1 mg/mL (1mL) INJ 1 mg 1 mL, IV Push, q2h ondansetron 2 mg/ 1 mL 2 mL INJ 4 mg 2 mL, IV Push, q4h Lab Results 10/11 09:59 Protime: 16.8 H PT International Ratio: 1.4 10/11 03:39 WBC: 8.8 Hgb: 11.9 L Hct: 35.9 Platelet: 240 Neutrophil %: 61.0 10/11 03:38 Glucose Level: 118 H Sodium Level: 144 Potassium Level: 3.1 L BUN: 18.0 Creatinine Lvl (s): 0.85 10/10 04:15 Protime: 14.2 PT International Ratio: 1.2 EKG No qualifying data available. Assessment/Plan Left upper back/neck cellulitis/abscess s/p I&D/wound VAC placement Bacteremia uncertain significance per infectious disease Diabetes mellitus uncontrolled with hyperglycemia Leukocytosis-resolved Chronic problem Paroxysmal atrial fibrillation Hypertension Chronic respiratory failure on home oxygen Tachybradycardia syndrome status post pacemaker placement Obstructive sleep apnea not on CPAP Diabetes mellitus Morbid obesity Plan Status post I&D/debridement by surgery 09/18 16, 10/05 General surgery recommending to continue wound VAC and follow-up as outpatient Wound VAC in place Infectious disease reconsult appreciated, Flagyl discontinue Recommending to continue IV daptomycin for at least 6 weeks and follow-up as outpatient PICC line ordered Repeat blood cultures, OR cultures in progress Continue sotalol, statin On IV heparin, Coumadin dosed for today, INR 1 Continue insulin regimen, blood sugars have improved Overall prognosis guarded Discussed with the patient Discussed with nursing Discharge planning to care home facility once INR therapeutic and off IV heparin Digitally Signed by DAVID WICK MD on 10/11/2022 03:25 PM [id number] Note Date of Service 10/10/2022 Chief Complaint Transferred from outside hospital for left shoulder/neck/cellulitis/myositis Subjective Patient is a 72-year-old female with a past medical history of tachybradycardia syndrome status post pacemaker placement, insulin-dependent type 2 diabetes mellitus, A-fib on Coumadin, chronic hypoxic respiratory failure on 2 L of oxygen initially presented to [facility] and later transferred to [facility] for left shoulder/neck cellulitis/myositis. General surgery on consult, following, she had debridement for abscess on left upper back on 10/03/2022, will repeat debridement again tomorrow. Wound cultures growing MRSA. Blood cultures growing staph hominis is nonsignificant as per ID. Continue daptomycin and Flagyl for now, She was found to have uncontrolled diabetes mellitus with HbA1c of 11.8, Lantus and Premeal insulindose increased in hospital. She has history of A-fib, Coumadin was on hold, vitamin K was also given prior to surgery, on heparin infusion. Status post D and debridement 10/05. Continued on IV heparin, Coumadin has been started.Infectious disease following recommending to continue IV daptomycin for 6 weeks. Patient has a PICCline. Patient seen and examined today. Pain controlled. On nasal cannula oxygen. Tolerating diet. PT/INR is 1.2 Objective Vitals and Measurements T: 36.3 C (Oral) TMIN: 36.3 C (Oral) TMAX: 36.8 C (Oral) HR: 69 RR: 18 BP: 134/72 SpO2: 98% Intake and Output 7AM Yesterday to 7AM Today Intake and Output (Last 24 hours) Intake Supplement Intake 240.00 Output Urinary Catheter Output: 700.00 Stool Count 4.00 Urine Count 1.00 Total Summary Total Intake 240.00 Total Output 700.00 Fluid Balance -460.00 Physical Exam HEENT: No Palor, PERRL, No JVD, No carotid bruit CVS: S1 S2 heard, regular rate and rhythm, no murmurs Lungs: Decreased breath sounds bibasilar Left shoulder base of the neck wound VAC seen Abdomen: soft, non distended, bowel sounds +, no tenderness Extremities: No edema, No cyanosis or clubbing INSULATION ESTIMATOR: Alert, No focal deficits identified. Skin: No visible rashes or Lesions Weight Dosing Weight: 99.3 kg (10/02/22) Medications Medications (25) Active Scheduled: (16) amLODIPine 5 mg tablet 5 mg 1 tab(s), Oral, qDay atorvastatin 20 mg tablet 20 mg 1 tab(s), Oral, qDay cholecalciferol 125 mcg capsule (Vit D3 5000 unit(s)) 125 mcg 1 cap(s), Oral, qDay DAPTOmycin 600 mg 12 mL, IV Piggyback, qDay furosemide 40 mg tablet 40 mg 1 tab(s), Oral, qDay insulin glargine 20 unit(s) 0.2 mL, Subcutaneous (INT), BID insulin lispro 100 units/mL Soln (3 mL) 8 unit(s) 0.08 mL, Subcutaneous, TIDAC insulin lispro 100 units/mL Soln (3 mL) Give 0-10 units/dose, Subcutaneous, TIDAC lidocaine 1% (MPF) 2 mL vial pf 30 mg 3 mL, Intradermal, prep pharm lisinopril 20 mg tablet 40 mg 2 tab(s), Oral, qDay metoprolol tartrate 25 mg tablet 25 mg 1 tab(s), Oral, Daily metronidazole 500 mg Tablet 500 mg 1 tab(s), Oral, BID Misc communication order 1 EA, Miscellaneous, Daily Pharmacy Consult 1 EA, Miscellaneous, Daily sotalol 80 mg Tablet 80 mg 1 tab(s), Oral, qHS warfarin 7.5 mg tablet 7.5 mg 1 tab(s), Oral, Once Continuous: (1) heparin 25,000 unit(s) [1000 unit(s)/hr] + Dextrose 5% Premix Diluent 250 mL 250 mL, Intravenous, 10 mL/hr PRN: (8) acetaminophen 325 mg Tablet 650 mg 2 tab(s), Oral, q4h acetaminophen-OXYcodone 325 mg-5 mg Tablet 1 tab(s), Oral, q4h acetaminophen-OXYcodone 325 mg-5 mg Tablet 2 tab(s), Oral, q4h albuterol - ipratropium 2.5 mg-0.5 mg/3 mL Inhal Valerie UD 3 mL, Inhalation, q4hRT heparin 5,000 units/mL (1 mL) vial 4,000 unit(s) 0.8 mL, IV Push, q6h HYDROmorphone 0.5 mg/0.5 mL PF syringe 0.5 mg 0.5 mL, IV Push, q2h hydromorphone 1 mg/mL (1mL) INJ 1 mg 1 mL, IV Push, q2h ondansetron 2 mg/ 1 mL 2 mL INJ 4 mg 2 mL, IV Push, q4h Lab Results 10/10 04:15 Protime: 14.2 PT International Ratio: 1.2 10/09 03:51 WBC: 6.3 Hgb: 12.7 Hct: 38.9 Platelet: 248 Neutrophil %: 50.0 Protime: 12.3 PT International Ratio: 1.0 EKG No qualifying data available. Assessment/Plan Left upper back/neck cellulitis/abscess s/p I&D/wound VAC placement Bacteremia uncertain significance per infectious disease Diabetes mellitus uncontrolled with hyperglycemia Leukocytosis-resolved Chronic problem Paroxysmal atrial fibrillation Hypertension Chronic respiratory failure on home oxygen Tachybradycardia syndrome status post pacemaker placement Obstructive sleep apnea not on CPAP Diabetes mellitus Morbid obesity Plan Status post I&D/debridement by surgery 09/18 16, 10/05 General surgery recommending to continue wound VAC and follow-up as outpatient Wound VAC in place Infectious disease reconsult appreciated, Flagyl discontinue Recommending to continue IV daptomycin for at least 6 weeks and follow-up as outpatient PICC line ordered Repeat blood cultures, OR cultures in progress Continue sotalol, statin On IV heparin, Coumadin dosed for today, INR 1 Continue insulin regimen, blood sugars have improved Overall prognosis guarded Discussed with the patient Discussed with nursing Discharge planning to care home facility once INR therapeutic and off IV heparin Digitally Signed by DAVID WICK MD on 10/10/2022 01:29 PM [facility] [id number] Procedure note VASCULAR ACCESS TEAM POST PROCEDURE NOTE PROCEDURE: Peripherally Inserted Central Catheter (PICC) INDICATION: _Long Term Antibiotics DETAILS: Consult for PICC placement received. Chart reviewed. Informed consent was obtained and verified prior to the procedure. A pre-procedure Time Out was performed confirming correct patient and procedure. A 5 Fr. Double Lumen PICC was inserted at bedside under sterile technique. Vascular access was obtained with ultrasound guidance. PICC flushes easily with good blood return. Patient tolerated placement of PICC well. PICC education provided. ANESTHESIA: Local subcutaneous injection using _3 mL 1% Lidocaine ACCESS VESSEL: _Right _Basilic CATHETER LENGTH: _37cm INTERNAL LENGTH: _37cm EXTERNAL LENGTH: _1cm ARM CIRC: _36cm LOT #: _[id number] COMPLICATIONS: None INSERTED BY: Avery Treviño PLAN: _Picc line inserted using ECG technology. Unable to obtain Max-P wave. Chest X-ray obtained to verify position. _Picc line okay for use. Digitally Signed by Avery Treviño RN on 10/07/2022 04:52 PM [facility] [id number] Note ORIGINAL EXAMINATION: ONE XRAY VIEW OF THE CHEST 10/07/2022 4:04 pm COMPARISON: Same day chest radiograph time stamped 1229 HISTORY: ORDERING SYSTEM PROVIDED HISTORY: Reason for Exam: Picc line retracted, please verify placement FINDINGS: The patient is rotated to the right. There has been interval retraction of a right PICC line which now projects over the inferior SVC. No other significant interval change. IMPRESSION: Interval retraction of a right PICC line projecting over the inferior SVC. Otherwise no significant interval change. I have personally reviewed the images of this examination and agree with the resident's findings and interpretation. Interpreted by: Maxi Martinez DO Preliminary Report By: Jorge Luis Hernandez Electronically signed By Maxi Martinez DO Dictated Date: 10/07/2022 4:15:56 PM Prelim Date: 10/07/2022 4:17:40 PM Sign Date: 10/07/2022 4:27:26 PM Ordering Provider: DAVID PersonLouis Stokes [facility] [id number] Note ORIGINAL EXAMINATION: ONE XRAY VIEW OF THE CHEST10/07/2022 12:38 pm COMPARISON: 10/01/2022 HISTORY: ORDERING SYSTEM PROVIDED HISTORY: Reason for Exam: Verify Picc line placement FINDINGS: A right PICC line has been inserted terminating in the region of the upper right atrium. The patient is moderately rotated. There is suggestion of some airspace infiltrates in the left lower lung, small left pleural effusion not excluded. The right lung is clear. IMPRESSION: PICC line terminates in the upper right atrium. This can be considered appropriate position. Left mid and lower lung airspace disease. Interpreted by: Darron Sapp MD Preliminary Report By: Darron Sapp MD Electronically signed By Darron Sapp MD Dictated Date: 10/07/2022 12:42:33 PM Prelim Date: 10/07/2022 12:43:54 PM Sign Date: 10/07/2022 12:43:54 PM Ordering Provider: [facility]07-19-2023 Infectious disease Consult note Date of Service 10/06/2022 Reason for Consultation Antimicrobial recommendations at discharge Referring Physician Dr Wick History of Present Illness 72-year-old female with past medical history concerning for sick sinus syndrome status post PPM, poorly controlled type 2 diabetes being managed for left neck/shoulder cellulitis. She had a CT of soft tissue of the neck which showed cellulitic changes. CTA was negative for pulmonary emboli or pneumonia. Patient was started on IV clindamycin and meropenem. ID was consulted on 10/04 and gave recommendations however we are being reconsulted again for recommendations of antibiotics. Patient is somnolent but arousable denies any fever, chills, shortness of breath and is currently on 2 L of nasal cannula same as a home oxygen. Review of Systems 12 point review of systems is reviewed and is negative except for noted above. Physical Exam Vitals and Measurements T: 36.8 C (Oral) TMIN: 36.5 C (Oral) TMAX: 37.1 C (Oral) HR: 69 RR: 18 BP: 141/84 SpO2: 97% Weight Dosing Weight: 99.3 kg (10/02/22) General Appearance: Patient is laying in the bed not in any apparent distress HEENT: Atraumatic normocephalic, EOMI Neck: Neck supple oral mucosa moist Cardiac: first and second heart sounds audible Lungs: Clear to auscultation bilaterally Abdomen: Soft nontender nondistended bowel sounds positive Musculoskeletal: No acute abnormalities detected Extremities: No lower extremity edema Neurological: Grossly non focal Skin: Has wound VAC in place posterior upper shoulder region on the left. Multiple erythematous lesions from picking skin Psychiatric: Normal affect Lab Results 10/06 13:19 Protime: 101.2 H PT International Ratio: 8.2 C 10/06 05:50 WBC: 9.0 Hgb: 13.1 Hct: 39.9 Platelet: 260 Neutrophil %: 70.3 Glucose Level: 94 Sodium Level: 138 Potassium Level: 4.1 BUN: 23.0 H Creatinine Lvl (s): 0.90 10/05 06:42 WBC: 11.0 H Hgb: 13.2 Hct: 40.2 Platelet: 313 Neutrophil %: 66.5 Glucose Level: 114 Sodium Level: 139 Potassium Level: 4.4 BUN: 26.0 H Creatinine Lvl (s): 0.87 Imaging Results and Diagnostics XR Chest 1 View Result Date: October 01, 2022 Verified By: HERMELINDO CUADRA MD CLINICAL STATEMENT: IMPRESSION: Low lung volumes. Otherwise, No focal consolidation or edema. Preliminary Report was Dictated by a Resident Assessment/Plan Dorsal neck/posterior shoulder abscess status post I&D and wound VAC Multiple erythematous lesions in different healing stages generalized Vancomycin and penicillin allergies Controlled type 2 diabetes Microbiological data 09/30/2022 blood culture Staph aureus 09/30/2022 blood cultures Staph hominis 10/01 2022 wound culture MRSA Antimicrobial data metronidazole 500 oral twice daily 10/04 to date Daptomycin 6 mg/kg daily IV 10/01 to date 72-year-old female with polymicrobial bacteremia likely contaminant. Wound culture growing MRSA. Recently seen by ID. Being reconsulted for discharge antibiotics. CT of soft tissue of the neck showedcellulitic changes seemingly uploaded but cannot view. Now s/p sharp debridement and the wound vac was reapplied on 10/05 Continue daptomycin 6mg/kg IV daily, will treat for 4 to 6 weeks depending resolution and wound vac removed, can be de-escalated to oral as outpatient. PICC line ordered, we willdiscontinue metronidazole no anaerobes. Patient will follow-up in our ID outpatient clinic and willrequire serial imaging to ensure resolution. ID will sign off PICC line. Please obtain CBC, differential, CMP, and CPK, every Tuesday and send results to fax number [phone] Alvarado Please call Dr. Alvarado's office for a follow-up appointment in 2 weeks, Phone number [phone]. Problem List/Past Medical History Ongoing Anxiety Atrial fibrillation Chest pain Chronic left hip pain Chronic lumbar pain Diabetes mellitus type 2, insulin dependent Diabetic polyneuropathy Dizziness Dyspnea Edema of both lower extremities GERD - Gastro-esophageal reflux disease HTN (hypertension) Hypercholesterolemia MVP (mitral valve prolapse) Nocturnal hypoxia On continuous oral anticoagulation Organic sleep apnea Osteoarthritis of knees, bilateral Pacemaker Rib pain on left side SSS (sick sinus syndrome) Supplemental oxygen dependent Tachy-josé luis syndrome Historical Pneumonia UTI (urinary tract infection) Procedure/Surgical History Cardiac pacemaker: 03/18/21 EKG findin11/13/19 Echocardiogram: 10/29/19 EKG findin10/29/19 Cataract: 09/2019 Cardiac catheterization: 03/09/16 Echocardiogram: 02/13/16 Biopsy of bladder: 01/2016 Cardiovascular stress testin09/08/15 Endoscopy: 02/21/91 Endoscopy: 12/06/88 Endoscopy: 07/22/86 Arm Surgery: 1985 section: 1982 Cholecystectomy Appendectomy Dilation and curettage Hysterectomy Transesophageal echocardiogram Medications Inpatient amLODIPine, 5 mg= 1 tab(s), Oral, qDay atorvastatin, 20 mg= 1 tab(s), Oral, qDay Communication PHARMACY Order, 1 EA, Miscellaneous, Daily DAPTOmycin Dilaudid, 0.5 mg= 0.5 mL, IV Push, q2h, PRN Dilaudid, 1 mg= 1 mL, IV Push, q2h, PRN DuoNeb, 3 mL, Inhalation, q4hRT, PRN Heparin for IV 25,000 unit(s) [1000 unit(s)/hr] + Dextrose 5% Premix Diluent 250 mL Heparin HBW CARDIAC Bolus 5000 units/mL, 4000 unit(s)= 0.8 mL, 60 unit(s)/kg, IV Push, q6h, PRN HumaLOG 100 units/mL injectable solution VIAL, 8 unit(s)= 0.08 mL, Subcutaneous, TIDAC HumaLOG 100 units/mL subcutaneous solution, Give 0-10 units/dose, Subcutaneous, TIDAC Lantus, 20 unit(s)= 0.2 mL, Subcutaneous (INT), BID Lasix, 40 mg= 1 tab(s), Oral, qDay lisinopril, 40 mg= 2 tab(s), Oral, qDay Metoprolol Tartrate 25 mg oral tablet, 25 mg= 1 tab(s), Oral, Daily metroNIDAZOLE, 500 mg= 1 tab(s), Oral, BID Percocet 325/5, 1 tab(s), Oral, q4h, PRN Percocet 325/5, 2 tab(s), Oral, q4h, PRN Pharmacy Consult, 1 EA, Miscellaneous, Daily sotalol 80 mg oral tablet, 80 mg= 1 tab(s), Oral, qHS Vitamin D3 125 mcg (5000 intl units) oral capsule, 125 mcg= 1 cap(s), Oral, qDay Zofran, 4 mg= 2 mL, IV Push, q4h, PRN Home acetaminophen-hydrocodone 325 mg-7.5 mg oral tablet, 1 tab(s), Oral, q6hr, PRN amLODIPine 5 mg oral tablet, 5 mg= 1 tab(s), Oral, qDay, 3 refills atorvastatin 20 mg oral tablet, 20 mg= 1 tab(s), Oral, qDay Blood Glucose Test Machine, See Instructions Blood Glucose Test Strips, See Instructions, 3 refills insulin glargine-yfgn 100 units/mL subcutaneous solution, 20, Subcutaneous, qDay insulin lispro (Humalog) 100 units/mL injectable solution, 5 unit(s), Subcutaneous, TIDAC Lancets, See Instructions, 3 refills Lasix 40 mg oral tablet, 40 mg= 1 tab(s), Oral, qDay, 2 refills lisinopril 40 mg oral tablet, 40 mg= 1 tab(s), Oral, qDay, 3 refills Lopressor 25mg--USE metoprolol tartrate 25 mg oral tablet, 25 mg= 1 tab(s), Daily sotalol 80 mg oral tablet, 80 mg= 1 tab(s), Oral, qHS, 5 refills Vitamin D3 125 mcg (5000 intl units) oral capsule, 125 mcg= 1 cap(s), Oral, qDay warfarin 4 mg oral tablet, 4 mg= 1 tab(s), Oral, qDay warfarin 5 mg oral tablet, 5 mg= 1 tab(s), Oral, qDay, 3 refills Allergies Bystolic (Irregular heart beat) Cardizem (Dizziness) Tenormin (Bradycardia) Zebeta (Unknown) biaxin cipro glucaphage penicillin vancomycin Social History Smoking Status - 11/03/2015 Never smoker Alcohol Use: Never., 10/16/2018 Employment/School Status: Retired., 07/03/2019 Exercise Home/Environment Domestic Concerns: None., 02/23/2019 Nutrition/Health Caffeine intake amount: coffee, 1 serving daily., 10/16/2018 Substance Abuse Use: Never., 10/16/2018 Tobacco Tobacco Use: Former smoker, quit more than 30 days ago., 10/16/2018 Family History Diabetes: Mother and Brother. Heart attack: Mother. Hypertension: Mother, Father and Brother. Stroke: Father. Immunizations SARS-CoV-2 (COVID-19) mRNA-1273 vaccine: 0 unknown unit (05/01/20) tetanus/diphth/pertuss (Tdap) adult/adol: 0.5 unknown unit (05/28/19) Digitally Signed by CHICO FALL MD on 10/06/2022 09:48 PM Digitally Signed by CHICO FALL MD on 10/06/2022 10:03 PM [facility] [id number] [facility] Progress note Date of Service 10/06/2022 Chief Complaint Necrotizing fasciitis left shoulder Subjective Overnight events. Patient resting this morning. Pain is well controlled. Wound VAC secure with no air leak. No acute concerns per nursing. Objective Vitals and Measurements T: 36.5 C (Oral) TMIN: 36.0 C (Temporal Artery) TMAX: 37.1 C (Oral) HR: 75 RR: 16 BP: 151/89 SpO2: 100% Intake and Output 7AM Yesterday to 7AM Today Intake and Output (Last 24 hours) Intake Administration Information 500.00 Supplement Intake 235.00 Output Urinary Catheter Output: 1150.00 Intra-Op EBL 15.00 Total Summary Total Intake 735.00 Total Output 1165.00 Fluid Balance -430.00 Physical Exam General: A+Ox3 CV: RRR, no MRG Resp: CTAB. Left shoulder wound VAC secure. No air leak noted. Abd: Soft, ND, NT, +BS Weight Dosing Weight: 99.3 kg (10/02/22) Medications Medications (23) Active Scheduled: (14) amLODIPine 5 mg tablet 5 mg 1 tab(s), Oral, qDay atorvastatin 20 mg tablet 20 mg 1 tab(s), Oral, qDay cholecalciferol 125 mcg capsule (Vit D3 5000 unit(s)) 125 mcg 1 cap(s), Oral, qDay DAPTOmycin 600 mg 12 mL, IV Piggyback, qDay furosemide 40 mg tablet 40 mg 1 tab(s), Oral, qDay insulin glargine 20 unit(s) 0.2 mL, Subcutaneous (INT), BID insulin lispro 100 units/mL Soln (3 mL) 8 unit(s) 0.08 mL, Subcutaneous, TIDAC insulin lispro 100 units/mL Soln (3 mL) Give 0-10 units/dose, Subcutaneous, TIDAC lisinopril 20 mg tablet 40 mg 2 tab(s), Oral, qDay metoprolol tartrate 25 mg tablet 25 mg 1 tab(s), Oral, Daily metronidazole 500 mg Tablet 500 mg 1 tab(s), Oral, BID Misc communication order 1 EA, Miscellaneous, Daily Pharmacy Consult 1 EA, Miscellaneous, Daily sotalol 80 mg Tablet 80 mg 1 tab(s), Oral, qHS Continuous: (1) heparin 25,000 unit(s) [1000 unit(s)/hr] + Dextrose 5% Premix Diluent 250 mL 250 mL, Intravenous, 10 mL/hr PRN: (8) acetaminophen 325 mg Tablet 650 mg 2 tab(s), Oral, q4h acetaminophen-OXYcodone 325 mg-5 mg Tablet 1 tab(s), Oral, q4h acetaminophen-OXYcodone 325 mg-5 mg Tablet 2 tab(s), Oral, q4h albuterol - ipratropium 2.5 mg-0.5 mg/3 mL Inhal Valerie UD 3 mL, Inhalation, q4hRT heparin 5,000 units/mL (1 mL) vial 4,000 unit(s) 0.8 mL, IV Push, q6h HYDROmorphone 0.5 mg/0.5 mL PF syringe 0.5 mg 0.5 mL, IV Push, q2h hydromorphone 1 mg/mL (1mL) INJ 1 mg 1 mL, IV Push, q2h ondansetron 2 mg/ 1 mL 2 mL INJ 4 mg 2 mL, IV Push, q4h Lab Results 10/06 05:50 WBC: 9.0 Hgb: 13.1 Hct: 39.9 Platelet: 260 Neutrophil %: 70.3 10/05 06:42 WBC: 11.0 H Hgb: 13.2 Hct: 40.2 Platelet: 313 Neutrophil %: 66.5 Glucose Level: 114 Sodium Level: 139 Potassium Level: 4.4 BUN: 26.0 H Creatinine Lvl (s): 0.87 EKG No qualifying data available. Assessment/Plan Patient is a 72-year-old female status postdebridement of necrotizing fasciitis left shoulder, Overall patient is doing very well. We will set up home health care nursing for wound VAC changes. Patient is tolerating a diabetic diet. She is stable for discharge from a surgical standpoint. She is to follow-up in office with Dr. Burnett in 2 weeks. Digitally Signed by EMMANUEL SLATER MD on 10/06/2022 06:42 AM [facility] [id number] Anesthesiology Consult note Patient: JOHN PAUL RODRIGUEZ Age: 72 years Sex: Female : 1950 Associated Diagnoses: None Author: JOSE ANTONIO FOX MD Postoperative Information Post Operative Info: Post op day: Post Anesthesia Care Unit. Patient location: PACU. Assessment Postanesthesia assessment Vitals: Vital signs from flowsheet : Vital Signs 10/05/2022 10:47 EDT Temperature Oral 36.4 DegC Peripheral Pulse Rate 70 bpm Respiratory Rate 18 br/min Systolic Blood Pressure Non-Invasive 172 mmHg HI Diastolic Blood Pressure Non-Invasive 97 mmHg HI Blood Pressure Method Automatic Blood Pressure Location Left arm Blood Pressure Cuff Size Medium Reason For Taking VItal Signs Routine 10/05/2022 10:11 EDT Reason For Taking VItal Signs Procedure post-care 10/05/2022 9:35 EDT Temperature Temporal Artery 36.0 DegC Heart Rate Monitored 70 bpm Respiratory Rate 16 br/min Systolic Blood Pressure Non-Invasive 148 mmHg HI Diastolic Blood Pressure Non-Invasive 86 mmHg 10/05/2022 9:23 EDT Heart Rate Monitored 70 bpm Respiratory Rate 16 br/min Systolic Blood Pressure Non-Invasive 149 mmHg HI Diastolic Blood Pressure Non-Invasive 82 mmHg Mean Arterial Pressure (NBP) 100 mmHg 10/05/2022 9:10 EDT Respiratory Rate - Anes 0 br/min br/min 10/05/2022 9:05 EDT Respiratory Rate - Anes 0 br/min br/min 10/05/2022 9:02 EDT Temperature Temporal Artery 36.0 DegC Heart Rate Monitored 71 bpm Respiratory Rate 16 br/min Systolic Blood Pressure Non-Invasive 162 mmHg HI Diastolic Blood Pressure Non-Invasive 99 mmHg HI Mean Arterial Pressure (NBP) 116 mmHg 10/05/2022 9:00 EDT Respiratory Rate - Anes 0 br/min br/min 10/05/2022 8:56 EDT Systolic Blood Pressure Non-Invasive 191 mmHg mmHg Diastolic Blood Pressure Non-Invasive 107 mmHg mmHg 10/05/2022 8:55 EDT Heart Rate Monitored 73 bpm bpm Respiratory Rate - Anes 6 br/min br/min 10/05/2022 8:53 EDT Systolic Blood Pressure Non-Invasive 164 mmHg mmHg Diastolic Blood Pressure Non-Invasive 120 mmHg mmHg 10/05/2022 8:50 EDT Respiratory Rate - Anes 3 br/min br/min 10/05/2022 8:47 EDT Systolic Blood Pressure Non-Invasive 106 mmHg mmHg Diastolic Blood Pressure Non-Invasive 70 mmHg mmHg 10/05/2022 8:45 EDT Temperature (Route Not Specified) 36.34 DegC DegC Heart Rate Monitored 70 bpm bpm Respiratory Rate - Anes 12 br/min br/min Systolic Blood Pressure Non-Invasive 117 mmHg mmHg Diastolic Blood Pressure Non-Invasive 74 mmHg mmHg 10/05/2022 8:42 EDT Systolic Blood Pressure Non-Invasive 126 mmHg mmHg 10/05/2022 8:41 EDT Systolic Blood Pressure Non-Invasive 110 mmHg mmHg Diastolic Blood Pressure Non-Invasive 88 mmHg mmHg 10/05/2022 8:40 EDT Temperature (Route Not Specified) 36.35 DegC DegC Heart Rate Monitored 70 bpm bpm Respiratory Rate - Anes 12 br/min br/min 10/05/2022 8:37 EDT Systolic Blood Pressure Non-Invasive 72 mmHg mmHg Diastolic Blood Pressure Non-Invasive 50 mmHg mmHg 10/05/2022 8:35 EDT Temperature (Route Not Specified) 36.34 DegC DegC Heart Rate Monitored 70 bpm bpm Respiratory Rate - Anes 12 br/min br/min 10/05/2022 8:34 EDT Systolic Blood Pressure Non-Invasive 105 mmHg mmHg Diastolic Blood Pressure Non-Invasive 51 mmHg mmHg 10/05/2022 8:31 EDT Systolic Blood Pressure Non-Invasive 101 mmHg mmHg Diastolic Blood Pressure Non-Invasive 58 mmHg mmHg 10/05/2022 8:30 EDT Temperature (Route Not Specified) 36.36 DegC DegC Heart Rate Monitored 70 bpm bpm Respiratory Rate - Anes 12 br/min br/min 10/05/2022 8:28 EDT Systolic Blood Pressure Non-Invasive 138 mmHg mmHg Diastolic Blood Pressure Non-Invasive 89 mmHg mmHg 10/05/2022 8:25 EDT Temperature (Route Not Specified) 36.41 DegC DegC Heart Rate Monitored 76 bpm bpm Respiratory Rate - Anes 12 br/min br/min Systolic Blood Pressure Non-Invasive 147 mmHg mmHg Diastolic Blood Pressure Non-Invasive 97 mmHg mmHg 10/05/2022 8:22 EDT Systolic Blood Pressure Non-Invasive 138 mmHg mmHg Diastolic Blood Pressure Non-Invasive 101 mmHg mmHg 10/05/2022 8:20 EDT Temperature (Route Not Specified) 36.43 DegC DegC Heart Rate Monitored 74 bpm bpm Respiratory Rate - Anes 12 br/min br/min 10/05/2022 8:19 EDT Systolic Blood Pressure Non-Invasive 122 mmHg mmHg Diastolic Blood Pressure Non-Invasive 79 mmHg mmHg 10/05/2022 8:16 EDT Systolic Blood Pressure Non-Invasive 115 mmHg mmHg Diastolic Blood Pressure Non-Invasive 72 mmHg mmHg 10/05/2022 8:15 EDT Temperature (Route Not Specified) 36.48 DegC DegC Heart Rate Monitored 70 bpm bpm Respiratory Rate - Anes 10 br/min br/min Systolic Blood Pressure Non-Invasive 117 mmHg mmHg 10/05/2022 8:13 EDT Systolic Blood Pressure Non-Invasive 106 mmHg mmHg Diastolic Blood Pressure Non-Invasive 66 mmHg mmHg 10/05/2022 8:10 EDT Temperature (Route Not Specified) 36.52 DegC DegC Heart Rate Monitored 70 bpm bpm Respiratory Rate - Anes 10 br/min br/min Systolic Blood Pressure Non-Invasive 65 mmHg mmHg Diastolic Blood Pressure Non-Invasive 57 mmHg mmHg 10/05/2022 8:05 EDT Temperature (Route Not Specified) 36.52 DegC DegC Heart Rate Monitored 70 bpm bpm Respiratory Rate - Anes 10 br/min br/min 10/05/2022 8:04 EDT Systolic Blood Pressure Non-Invasive 102 mmHg mmHg Diastolic Blood Pressure Non-Invasive 66 mmHg mmHg 10/05/2022 8:01 EDT Systolic Blood Pressure Non-Invasive 90 mmHg mmHg Diastolic Blood Pressure Non-Invasive 55 mmHg mmHg 10/05/2022 8:00 EDT Apical Heart Rate Not Done: Patient Not in Room (Not Done) Heart Rate Monitored 75 bpm bpm Respiratory Rate - Anes 10 br/min br/min 10/05/2022 7:58 EDT Systolic Blood Pressure Non-Invasive 134 mmHg mmHg Diastolic Blood Pressure Non-Invasive 97 mmHg mmHg 10/05/2022 7:56 EDT Systolic Blood Pressure Non-Invasive 66 mmHg mmHg Diastolic Blood Pressure Non-Invasive 52 mmHg mmHg 10/05/2022 7:55 EDT Heart Rate Monitored 74 bpm bpm Respiratory Rate - Anes 10 br/min br/min 10/05/2022 7:54 EDT Systolic Blood Pressure Non-Invasive 133 mmHg mmHg 10/05/2022 7:50 EDT Heart Rate Monitored 87 bpm bpm Respiratory Rate - Anes 10 br/min br/min Systolic Blood Pressure Non-Invasive 129 mmHg mmHg Diastolic Blood Pressure Non-Invasive 76 mmHg mmHg 10/05/2022 7:47 EDT Systolic Blood Pressure Non-Invasive 115 mmHg mmHg Diastolic Blood Pressure Non-Invasive 72 mmHg mmHg 10/05/2022 7:45 EDT Heart Rate Monitored 71 bpm bpm Respiratory Rate - Anes 0 br/min br/min 10/05/2022 7:44 EDT Systolic Blood Pressure Non-Invasive 156 mmHg mmHg Diastolic Blood Pressure Non-Invasive 87 mmHg mmHg 10/05/2022 7:41 EDT Systolic Blood Pressure Non-Invasive 152 mmHg mmHg Diastolic Blood Pressure Non-Invasive 89 mmHg mmHg 10/05/2022 7:40 EDT Respiratory Rate - Anes 0 br/min br/min 10/05/2022 6:59 EDT Heart Rate Monitored 75 bpm Respiratory Rate 18 br/min 10/05/2022 3:24 EDT Temperature Oral 37.3 DegC Apical Heart Rate 70 bpm Respiratory Rate 18 br/min Systolic Blood Pressure Non-Invasive 138 mmHg Diastolic Blood Pressure Non-Invasive 83 mmHg Reason For Taking VItal Signs Routine 10/04/2022 22:57 EDT Temperature Oral 36.8 DegC Peripheral Pulse Rate 70 bpm Respiratory Rate 18 br/min Systolic Blood Pressure Non-Invasive 133 mmHg Diastolic Blood Pressure Non-Invasive 74 mmHg Reason For Taking VItal Signs Routine 10/04/2022 19:08 EDT Temperature Oral 36.7 DegC Peripheral Pulse Rate 74 bpm Respiratory Rate 18 br/min Systolic Blood Pressure Non-Invasive 122 mmHg Diastolic Blood Pressure Non-Invasive 75 mmHg Reason For Taking VItal Signs Routine 10/04/2022 14:34 EDT Temperature Oral 36.6 DegC Peripheral Pulse Rate 74 bpm Respiratory Rate 18 br/min Systolic Blood Pressure Non-Invasive 118 mmHg Diastolic Blood Pressure Non-Invasive 72 mmHg Blood Pressure Method Automatic Blood Pressure Location Left arm Blood Pressure Cuff Size Medium Reason For Taking VItal Signs Routine 10/04/2022 10:24 EDT Temperature Oral 37.0 DegC Peripheral Pulse Rate 72 bpm Respiratory Rate 18 br/min Systolic Blood Pressure Non-Invasive 155 mmHg HI Diastolic Blood Pressure Non-Invasive 79 mmHg Blood Pressure Method Automatic Blood Pressure Location Left arm Blood Pressure Cuff Size Medium Reason For Taking VItal Signs Routine 10/04/2022 9:07 EDT Apical Heart Rate 70 bpm 10/04/2022 6:38 EDT Temperature Oral 37.2 DegC Peripheral Pulse Rate 70 bpm Respiratory Rate 18 br/min Systolic Blood Pressure Non-Invasive 140 mmHg Diastolic Blood Pressure Non-Invasive 82 mmHg Blood Pressure Method Automatic Blood Pressure Location Left arm Blood Pressure Cuff Size Medium Reason For Taking VItal Signs Routine 10/04/2022 2:25 EDT Temperature Oral 37.6 DegC HI Heart Rate Monitored 74 bpm Respiratory Rate 18 br/min Systolic Blood Pressure Non-Invasive 157 mmHg HI Diastolic Blood Pressure Non-Invasive 57 mmHg LOW Reason For Taking VItal Signs Routine , Oxygen Therapy : Oxygen Therapy & Oxygenation Information 10/05/2022 11:59 EDT Oxygen Therapy Nasal cannula 0L-6L Oxygen Flow Rate 3 10/05/2022 10:47 EDT Oxygen Therapy Nasal cannula 0L-6L Oxygen Saturation 97 % Oxygen Flow Rate 3 10/05/2022 10:11 EDT Oxygen Therapy Nasal cannula 0L-6L Oxygen Flow Rate 3 10/05/2022 9:35 EDT Oxygen Saturation 98 % 10/05/2022 9:23 EDT Oxygen Saturation 97 % 10/05/2022 9:10 EDT Oxygen Therapy Nasal cannula 0L-6L Oxygen Flow Rate 3 10/05/2022 9:02 EDT Oxygen Therapy Simple mask Oxygen Saturation 99 % Oxygen Flow Rate 8 10/05/2022 8:55 EDT Oxygen Saturation 100 % % 10/05/2022 8:45 EDT Oxygen Saturation 100 % % 10/05/2022 8:40 EDT Oxygen Saturation 99 % % 10/05/2022 8:35 EDT Oxygen Saturation 100 % % 10/05/2022 8:30 EDT Oxygen Saturation 100 % % 10/05/2022 8:25 EDT Oxygen Saturation 100 % % 10/05/2022 8:20 EDT Oxygen Saturation 100 % % 10/05/2022 8:15 EDT Oxygen Saturation 100 % % 10/05/2022 8:10 EDT Oxygen Saturation 100 % % 10/05/2022 8:05 EDT Oxygen Saturation 100 % % 10/05/2022 8:00 EDT Oxygen Saturation 100 % % 10/05/2022 7:55 EDT Oxygen Saturation 100 % % 10/05/2022 7:50 EDT Oxygen Saturation 100 % % 10/05/2022 7:45 EDT Oxygen Saturation 100 % % 10/05/2022 7:40 EDT Oxygen Saturation 99 % % 10/05/2022 3:24 EDT Oxygen Therapy Nasal cannula 0L-6L Oxygen Saturation 97 % Oxygen Flow Rate 2 10/04/2022 22:57 EDT Oxygen Therapy Nasal cannula 0L-6L Oxygen Saturation 95 % Oxygen Flow Rate 2 10/04/2022 19:08 EDT Oxygen Therapy Nasal cannula 0L-6L Oxygen Saturation 96 % Oxygen Flow Rate 2 10/04/2022 14:34 EDT Oxygen Therapy Nasal cannula 0L-6L Oxygen Saturation 97 % Oxygen Flow Rate 2 10/04/2022 10:24 EDT Oxygen Therapy Nasal cannula 0L-6L Oxygen Saturation 98 % Oxygen Flow Rate 2 10/04/2022 6:38 EDT Oxygen Therapy Nasal cannula 0L-6L Oxygen Saturation 98 % Oxygen Flow Rate 2 10/04/2022 2:25 EDT Oxygen Therapy Nasal cannula 0L-6L Oxygen Saturation 97 % Oxygen Flow Rate 2 . Mental status: at preoperative baseline. Respiratory function: respirations are non-labored, Stable. Respiratory support: none. CV function: Stable. Cardiovascular support: none. Pain: Satisfactory. Nausea status: Satisfactory. Postoperative hydration status: within normal limits. Notes: Patient is sufficiently recovered from anesthesia to participate in the evaluation. No follow-up care needed. No complications post-anesthesia.. Digitally Signed by JOSE ANTONIO FOX MD on 10/05/2022 02:50 PM [id number] Note If ancillary studies were utilized, the following Laboratory Developed Test (LDT) disclaimer will apply: Under CLIA requirements, [facility] is qualified to perform high complexity testing. For all ancillary stains, positive and negative controls stain appropriately. Performance characteristics of immunohistochemical and chromogenic in-situ hybridization tests have been determined by [facility]. These tests are used for clinical purposes, They should not be regarded as investigational or for research. [facility] 07-18-2023 Note If ancillary studies were utilized, the following Laboratory Developed Test (LDT) disclaimer will apply: Under CLIA requirements, [facility] is qualified to perform high complexity testing. For all ancillary stains, positive and negative controls stain appropriately. Performance characteristics of immunohistochemical and chromogenic in-situ hybridization tests have been determined by [facility]. These tests are used for clinical purposes, They should not be regarded as investigational or for research. [facility] 07-18-2023 Anesthesiology Consult note Patient: JOHN PAUL RODRIGUEZ Age: 72 years Sex: Female : 1950 Associated Diagnoses: None Author: LEILANI HURTADO APRN-DIMPLE Preoperative Information Greater than 6 hours Anesthesia history Patient's history: negative. Family's history: negative. Review of Systems Ear/Nose/Mouth/Throat: Negative except as documented in history of present illness. Respiratory: smoking hx quit 10 y/a, Sleep Apnea. Cardiovascular: HTN, A-fib, MVP, Pacemaker . Gastrointestinal: Reflux. Genitourinary: Negative except as documented in history of present illness. Endocrine: NIDDM. Musculoskeletal: Negative except as documented in history of present illness, Chronic back pain. Integumentary: Negative except as documented in history of present illness. Neurologic: Negative except as documented in history of present illness. Health Status Allergies: Allergic Reactions (All) Severity Not Documented Biaxin- No reactions were documented. Bystolic- Irregular heart beat. Cardizem- Dizziness. Cipro- No reactions were documented. Glucaphage- No reactions were documented. Penicillin- No reactions were documented. Tenormin- Bradycardia. Vancomycin- No reactions were documented. Zebeta- Unknown. Canceled/Inactive Reactions (All) Severity Not Documented Imitrex- Headache., Allergies (9) ActiveReaction biaxinNone Documented BystolicIrregular heart beat CardizemDizziness ciproNone Documented glucaphageNone Documented penicillinNone Documented TenorminBradycardia vancomycinNone Documented ZebetaUnknown Current medications: (Selected) Inpatient Medications Ordered Communication PHARMACY Order: 1 EA, Miscellaneous, Daily DAPTOmycin: 600 mg, 12 mL, 124 mL/hr, IV Piggyback, qDay Dilaudid: 0.5 mg, 0.5 mL, IV Push, q2h, PRN: Pain, scale 4-6 Dilaudid: 1 mg, 1 mL, IV Push, q2h, PRN: Pain, scale 7-10 DuoNeb: 3 mL, Inhalation, q4hRT, PRN: Shortness of breath or wheezing Heparin HBW CARDIAC Bolus 5000 units/mL: 4,000 unit(s), 0.8 mL, IV Push, q6h, PRN: Protocol, WeightBased Heparin Heparin for IV 25,000 unit(s) [1000 unit(s)/hr] + Dextrose 5% Premix Diluent 250 mL: 10 mL/hr, Intravenous HumaLOG 100 units/mL injectable solution VIAL: 8 unit(s), 0.08 mL, Subcutaneous, TIDAC HumaLOG 100 units/mL subcutaneous solution: Give 0-10 units/dose, Subcutaneous, TIDAC Lantus: 20 unit(s), 0.2 mL, 0 mL/hr, Subcutaneous (INT), BID Lasix: 40 mg, 1 tab(s), Oral, qDay Metoprolol Tartrate 25 mg oral tablet: 25 mg, 1 tab(s), Oral, Daily Percocet 325/5: 1 tab(s), Oral, q4h, PRN: Pain, scale 4-6 Percocet 325/5: 2 tab(s), Oral, q4h, PRN: Pain, scale 7-10 Pharmacy Consult: 1 EA, Miscellaneous, Daily Vitamin D3 125 mcg (5000 intl units) oral capsule: 125 mcg, 1 cap(s), Oral, qDay Zofran: 4 mg, 2 mL, IV Push, q4h, PRN: Nausea/Vomiting acetaminophen: 650 mg, 2 tab(s), Oral, q4h, PRN: Pain, scale 1-3 amLODIPine: 5 mg, 1 tab(s), Oral, qDay atorvastatin: 20 mg, 1 tab(s), Oral, qDay lisinopril: 40 mg, 2 tab(s), Oral, qDay metroNIDAZOLE: 500 mg, 1 tab(s), Oral, BID sotalol 80 mg oral tablet: 80 mg, 1 tab(s), Oral, qHS Suspended warfarin: 4 mg, 2 tab(s), Oral, qDay warfarin: 5 mg, 1 tab(s), Oral, qDay Prescriptions Prescribed Blood Glucose Test Machine: See Instructions, Dispense 1 glucometer, use as directed 4 times a day to test blood sugar. Diagnosis is E11.9. Frequent testing due to insulin dependence and fluctuating blood sugars., 1 EA, 0 Refill(s) Blood Glucose Test Strips: See Instructions, Dispense glucose test strips, #360, use 1 strip as directed 4 times daily to test blood sugar. Diagnosis: E11.9. Frequent testing due to insulin use and fluctuating blood sugars., 360 EA, 3 Refill(s) Lancets: See Instructions, Dispense ultrafine lancets, #360, use once lancet as directed 4 times daily to test blood sugar. Diagnosis: E11.9. Frequent testing due to insulin dependence and fluctuating blood sugars., 360 EA, 3 Refill(s) Lasix 40 mg oral tablet: 40 mg, 1 tab(s), Oral, qDay, 90 tab(s), 2 Refill(s) acetaminophen-hydrocodone 325 mg-7.5 mg oral tablet: 1 tab(s), Oral, q6hr, for 7 day(s), PRN: as needed for pain, 30 tab(s), 0 Refill(s) amLODIPine 5 mg oral tablet: 5 mg, 1 tab(s), Oral, qDay, 90 tab(s), 3 Refill(s) lisinopril 40 mg oral tablet: 40 mg, 1 tab(s), Oral, qDay, 90 tab(s), 3 Refill(s) sotalol 80 mg oral tablet: 80 mg, 1 tab(s), Oral, qHS, 90 tab(s), 5 Refill(s) warfarin 5 mg oral tablet: 5 mg, 1 tab(s), Oral, qDay, 90 tab(s), 3 Refill(s) Documented Medications Documented Lopressor 25mg--USE metoprolol tartrate 25 mg oral tablet: 25 mg, 1 tab(s), Daily, 0 Refill(s) Vitamin D3 125 mcg (5000 intl units) oral capsule: 125 mcg, 1 cap(s), Oral, qDay, 100 cap(s), 0 Refill(s) atorvastatin 20 mg oral tablet: 20 mg, 1 tab(s), Oral, qDay, 90 tab(s), 0 Refill(s) insulin glargine-yfgn 100 units/mL subcutaneous solution: 20, Subcutaneous, qDay, q andrew, 0 Refill(s) insulin lispro (Humalog) 100 units/mL injectable solution: 5 unit(s), Subcutaneous, TIDAC, 15 mL, 0Refill(s) warfarin 4 mg oral tablet: 4 mg, 1 tab(s), Oral, qDay, 30 tab(s), 0 Refill(s), Medications (23) Active Scheduled: (14) amLODIPine 5 mg tablet 5 mg 1 tab(s), Oral, qDay atorvastatin 20 mg tablet 20 mg 1 tab(s), Oral, qDay cholecalciferol 125 mcg capsule (Vit D3 5000 unit(s)) 125 mcg 1 cap(s), Oral, qDay DAPTOmycin 600 mg 12 mL, IV Piggyback, qDay furosemide 40 mg tablet 40 mg 1 tab(s), Oral, qDay insulin glargine 20 unit(s) 0.2 mL, Subcutaneous (INT), BID insulin lispro 100 units/mL Soln (3 mL) 8 unit(s) 0.08 mL, Subcutaneous, TIDAC insulin lispro 100 units/mL Soln (3 mL) Give 0-10 units/dose, Subcutaneous, TIDAC lisinopril 20 mg tablet 40 mg 2 tab(s), Oral, qDay metoprolol tartrate 25 mg tablet 25 mg 1 tab(s), Oral, Daily metronidazole 500 mg Tablet 500 mg 1 tab(s), Oral, BID Misc communication order 1 EA, Miscellaneous, Daily Pharmacy Consult 1 EA, Miscellaneous, Daily sotalol 80 mg Tablet 80 mg 1 tab(s), Oral, qHS Continuous: (1) heparin 25,000 unit(s) [1000 unit(s)/hr] + Dextrose 5% Premix Diluent 250 mL 250 mL, Intravenous, 10 mL/hr PRN: (8) acetaminophen 325 mg Tablet 650 mg 2 tab(s), Oral, q4h acetaminophen-OXYcodone 325 mg-5 mg Tablet 1 tab(s), Oral, q4h acetaminophen-OXYcodone 325 mg-5 mg Tablet 2 tab(s), Oral, q4h albuterol - ipratropium 2.5 mg-0.5 mg/3 mL Inhal Valerie UD 3 mL, Inhalation, q4hRT heparin 5,000 units/mL (1 mL) vial 4,000 unit(s) 0.8 mL, IV Push, q6h HYDROmorphone 0.5 mg/0.5 mL PF syringe 0.5 mg 0.5 mL, IV Push, q2h hydromorphone 1 mg/mL (1mL) INJ 1 mg 1 mL, IV Push, q2h ondansetron 2 mg/ 1 mL 2 mL INJ 4 mg 2 mL, IV Push, q4h Problem list: Medical Anxiety / SNOMED CT [id number] / Confirmed Atrial fibrillation / SNOMED CT 54780303 / Confirmed Edema of both lower extremities / SNOMED CT 7759634642 / Confirmed Osteoarthritis of knees, bilateral / SNOMED CT 5871762824 / Confirmed Pacemaker / SNOMED CT 0905681158 / Confirmed Chest pain / SNOMED CT 64033715 / Confirmed Chronic lumbar pain / SNOMED CT 035217528 / Confirmed Supplemental oxygen dependent / SNOMED CT 0042006368 / Confirmed Diabetic polyneuropathy / SNOMED CT 33975111 / Confirmed Dizziness / SNOMED CT 6249762617 / Confirmed On continuous oral anticoagulation / SNOMED CT 9713752589 / Confirmed Dyspnea / SNOMED CT 093532620 / Confirmed GERD - Gastro-esophageal reflux disease / SNOMED CT 0534480118 / Confirmed Chronic left hip pain / SNOMED CT 34158002 / Confirmed HTN (hypertension) / SNOMED CT [id number] / Confirmed Hypercholesterolemia / SNOMED CT 67808320 / Confirmed Nocturnal hypoxia / SNOMED CT 9387121940 / Confirmed Diabetes mellitus type 2, insulin dependent / SNOMED CT 8938797755 / Confirmed MVP (mitral valve prolapse) / SNOMED CT [id number] / Confirmed Organic sleep apnea / SNOMED CT 7486874516 / Confirmed Rib pain on left side / SNOMED CT 374192102 / Confirmed SSS (sick sinus syndrome) / SNOMED CT 30734748 / Confirmed 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 Resolved: Pneumonia / SNOMED CT 130148858 Resolved: UTI (urinary tract infection) / SNOMED CT 202066938 Canceled: Breast cancer / SNOMED CT 114820409 Canceled: Diabetes / SNOMED CT [id number] Canceled: PAF (paroxysmal atrial fibrillation) / SNOMED CT 323661662 Canceled: Preop cardiovascular exam / SNOMED CT 271008833, Active Problems (23) Anxiety Atrial fibrillation Chest pain Chronic left hip pain Chronic lumbar pain Diabetes mellitus type 2, insulin dependent Diabetic polyneuropathy Dizziness Dyspnea Edema of both lower extremities GERD - Gastro-esophageal reflux disease HTN (hypertension) Hypercholesterolemia MVP (mitral valve prolapse) Nocturnal hypoxia On continuous oral anticoagulation Organic sleep apnea Osteoarthritis of knees, bilateral Pacemaker Rib pain on left side SSS (sick sinus syndrome) Supplemental oxygen dependent Tachy-josé luis syndrome Histories Past Medical History: Active HTN (hypertension) ([id number]) MVP (mitral valve prolapse) ([id number]) Hypercholesterolemia (89390706) Anxiety ([id number]) Supplemental oxygen dependent (9873486162) Comments: 03/18/2021 EST 9:32 MICHAEL Quintana Zuhair tyler nc at hs Resolved Pneumonia (075715368): Resolved. UTI (urinary tract infection) (793770178): Resolved. Family History: Hypertension Father Mother Brother Stroke Father Heart attack Mother Diabetes Mother Brother Procedure history: Cardiac pacemaker ([id number]) on 03/18/2021 at 70 Years. Comments: 03/18/2021 14:10 Kim Matthews RN Dual chamber pacemaker implanted by Dr. Hamlin on 03/18/2021 at [facility]. Pacemaker generator is a [employer] [place] XT DR MRI model #W1DR01, serial #[id number]. RA lead is a [employer] CapSureFix Novus MRI SureScan model #4076/52cm, serial #[id number]. RV lead is a [employer] CapSureFix Novus MRI SureScan model #4076/58cm, serial #[id number]. EKG finding ([id number]) on 11/13/2019 at 69 Years. Comments: 04/04/2020 15:13 Pamela Valdez MA (ABR-OE) A-fib with RVR, RBBB Echocardiogram ([id number]) on 10/29/2019 at 69 Years. Comments: 04/04/2020 15:11 Pamela Valdez MA (ABR-OE) EF 65% EKG finding ([id number]) on 10/29/2019 at 69 Years. Comments: 04/04/2020 15:14 Pamela Valdez MA (ABR-OE) Sinus tachycardia with 1st AV block, RBBB Cataract (322046940) in the month of 09/2019 at 69 Years. Comments: 10/08/2019 11:26 EDT Pamela Wheeler MA (ABR-OE) right eye Cardiac catheterization (03780048) on 03/09/2016 at 65 Years. Comments: 04/04/2020 15:19 Pamela Valdez MA (ABR-OE) Normal left ventricular function. Normal left ventricular hemodynamics. Normal coronary cineangiography. Echocardiogram ([id number]) on 02/13/2016 at 65 Years. Comments: 04/04/2020 15:12 Pamela Valdez MA (ABR-OE) EF 65% Biopsy of bladder ([id number]) in the month of 01/2016 at 65 Years. Cardiovascular stress testing (158029071) on 09/08/2015 at 65 Years. Comments: 04/04/2020 15:18 Pamela Valdez MA (ABR-OE) No evidence of ischemia Endoscopy ([id number]) on 02/21/1991 at 40 Years. Mastectomy (1607352793) in 1989 at 39 Years. Comments: 08/23/2014 10:39 MICHAEL CONCEPCION bilateral Endoscopy ([id number]) on 12/06/1988 at 38 Years. Endoscopy ([id number]) on 07/22/1986 at 35 Years. Arm Surgery (670575842) in 1985 at 35 Years. Comments: 10/16/2018 10:28 Cyn Murdock CMA bilateral section ([id number]) in 1982 at 32 Years. Cholecystectomy (63082282). Appendectomy (884922494). Elbow (544922326). Comments: 08/23/2014 10:39 MICHAEL CONCEPCION nerve trapped Hysterectomy (231554577). Comments: 08/23/2014 10:40 MICHAEL CONCEPCION partial Dilation and curettage (94393672). Transesophageal echocardiogram (2489062965). Comments: 02/26/2021 15:10 Heather Harris LPN Summary: 1. Left ventricle: The cavity size is normal. Wall thickness is normal. Systolic function is normal. 2. Ventricular septum: There is no evidence of a ventricular septal defect. 3. Aortic valve: There is no evidence of a vegetation. 4. Mitral valve: There is no evidence of vegetation. 5. Left atrium: There is no evidence of a thrombus in the atrial cavity or appendage. No spontaneous echo contrast is observed. 6. Pulmonic valve: There is no evidence of a vegetation. 7. Tricuspid valve: There is no evidence of a vegetation. There is moderate regurgitation. 8. Right atrium: There is no evidence of a thrombus in the atrial cavity or appendage. 9. Atrial septum: No defect or patent foramen ovale is identified. Echo contrast study following anincrease in RA pressure induced by provocative maneuvers, shows no [id number] atrial level shunt. Social History Social & Psychosocial Habits Alcohol 10/16/2018 Use: Never Employment/School 07/03/2019 Status: Retired Substance Abuse 10/16/2018 Use: Never Tobacco 10/16/2018 Tobacco Use: Former smoker, quit more Exercise Comment: none - 02/23/2019 13:50 - Amanda Murphy LPN Home/Environment 02/23/2019 Domestic Concerns None Nutrition/Health 10/16/2018 Caffeine intake amount: coffee, 1 serving daily . Physical Examination Vital Signs 10/05/2022 6:59 EDT Heart Rate Monitored 75 bpm Respiratory Rate 18 br/min 10/05/2022 3:24 EDT Temperature Oral 37.3 DegC Apical Heart Rate 70 bpm Respiratory Rate 18 br/min Systolic Blood Pressure Non-Invasive 138 mmHg Diastolic Blood Pressure Non-Invasive 83 mmHg Reason For Taking VItal Signs Routine 10/04/2022 22:57 EDT Temperature Oral 36.8 DegC Peripheral Pulse Rate 70 bpm Respiratory Rate 18 br/min Systolic Blood Pressure Non-Invasive 133 mmHg Diastolic Blood Pressure Non-Invasive 74 mmHg Reason For Taking VItal Signs Routine 10/04/2022 19:08 EDT Temperature Oral 36.7 DegC Peripheral Pulse Rate 74 bpm Respiratory Rate 18 br/min Systolic Blood Pressure Non-Invasive 122 mmHg Diastolic Blood Pressure Non-Invasive 75 mmHg Reason For Taking VItal Signs Routine 10/04/2022 14:34 EDT Temperature Oral 36.6 DegC Peripheral Pulse Rate 74 bpm Respiratory Rate 18 br/min Systolic Blood Pressure Non-Invasive 118 mmHg Diastolic Blood Pressure Non-Invasive 72 mmHg Blood Pressure Method Automatic Blood Pressure Location Left arm Blood Pressure Cuff Size Medium Reason For Taking VItal Signs Routine 10/04/2022 10:24 EDT Temperature Oral 37.0 DegC Peripheral Pulse Rate 72 bpm Respiratory Rate 18 br/min Systolic Blood Pressure Non-Invasive 155 mmHg HI Diastolic Blood Pressure Non-Invasive 79 mmHg Blood Pressure Method Automatic Blood Pressure Location Left arm Blood Pressure Cuff Size Medium Reason For Taking VItal Signs Routine 10/04/2022 9:07 EDT Apical Heart Rate 70 bpm 10/04/2022 6:38 EDT Temperature Oral 37.2 DegC Peripheral Pulse Rate 70 bpm Respiratory Rate 18 br/min Systolic Blood Pressure Non-Invasive 140 mmHg Diastolic Blood Pressure Non-Invasive 82 mmHg Blood Pressure Method Automatic Blood Pressure Location Left arm Blood Pressure Cuff Size Medium Reason For Taking VItal Signs Routine 10/04/2022 2:25 EDT Temperature Oral 37.6 DegC HI Heart Rate Monitored 74 bpm Respiratory Rate 18 br/min Systolic Blood Pressure Non-Invasive 157 mmHg HI Diastolic Blood Pressure Non-Invasive 57 mmHg LOW Reason For Taking VItal Signs Routine Vital Signs(last 24 hrs) Last Charted Temp Oral37.3 DegC (OCT 05 03:24) Heart Rate [id number] bpm (OCT 05 06:59) Resp Rate 18 br/min (OCT 05 06:59) OII542 mmHg (OCT 05 03:24) DBP83 mmHg (OCT 05 03:24) Pain assessment: Pain Assessment 10/05/2022 6:19 EDT Pain Scale Assessment 0-10 Pain scale Primary Pain Location Generalized Primary Pain Intensity 2 10/05/2022 4:55 EDT Primary Pain Location Shoulder Primary Pain Intensity 7 Primary Pain Nonverbal Response Nods Yes Pain Scale Type 0-10 Pain scale 10/04/2022 22:57 EDT Primary Pain Intensity 0 Primary Pain Nonverbal Response Nods No Pain Scale Type 0-10 Pain scale 10/04/2022 19:59 EDT Primary Pain Intensity 0 Primary Pain Nonverbal Response Nods No Pain Scale Type 0-10 Pain scale 10/04/2022 18:02 EDT Pain Scale Assessment 0-10 Pain scale Primary Pain Location Shoulder Primary Pain Intensity 0 10/04/2022 17:02 EDT Primary Pain Intensity 4 10/04/2022 15:30 EDT Primary Pain Intensity 0 Primary Pain Nonverbal Response Nods No Pain Scale Type 0-10 Pain scale 10/04/2022 12:54 EDT Pain Scale Assessment 0-10 Pain scale Primary Pain Location Shoulder Primary Pain Intensity 0 10/04/2022 11:54 EDT Primary Pain Location Shoulder Primary Pain Laterality Left Primary Pain Intensity 4 Primary Pain Time Pattern acute Primary Pain Onset Gradual Primary Pain Quality Aching Primary Pain Pharma Intervention Medication Primary Pain Nonverbal Response Nods Yes Pain Scale Type 0-10 Pain scale 10/04/2022 8:55 EDT Primary Pain Intensity 0 Primary Pain Nonverbal Response Nods No Pain Scale Type 0-10 Pain scale 10/04/2022 4:11 EDT Pain Scale Assessment 0-10 Pain scale Primary Pain Location Shoulder Primary Pain Intensity 3 Primary Pain Nonverbal Response Nods Yes Pain Scale Type 0-10 Pain scale 10/04/2022 2:22 EDT Primary Pain Location Shoulder Primary Pain Intensity 6 Primary Pain Nonverbal Response Nods Yes Pain Scale Type 0-10 Pain scale . General: Alert and oriented. Airway: Mallampati classification: III (soft palate, base of uvula visible). Head: Normocephalic. Dentition Evaluation: Missing teeth. Respiratory: Lungs are clear to auscultation. Cardiovascular: Normal rate. Neurologic: Alert, Oriented. Review / Management Results review: Labs (Last four charted values) WBC H 11.0(OCT 05)H 12.8(SEP 17)H 11.2(SEP 16)H 13.5(SEP 15) Hgb 13.2(SEP 18)13.1(SEP 17)13.9(SEP 16)12.6(SEP 15) Hct 40.2(SEP 18)40.1(SEP 17)41.8(SEP 16)38.8(SEP 15) Plt 313(OCT 05)248(SEP 17)261(SEP 16)190(SEP 15) Na 136(SEP 17)137(SEP 16)137(SEP 15)L 134(SEP 14) K 4.2(SEP 17)4.2(SEP 16)3.5(SEP 15)L 3.1(SEP 14) CO2 30(SEP 17)26(SEP 16)24(SEP 15)28(SEP 14) Cl 100(SEP 17)100(SEP 16)102(SEP 15)98(SEP 14) Cr 0.83(SEP 17)0.76(SEP 16)0.80(SEP 15)0.86(SEP 14) BUN H 26.0(SEP 17)H 23.0(SEP 16)H 24.0(SEP 15)18.0(SEP 14) Glucose H 269(SEP 17)H 164(SEP 16)H 248(SEP 15)H 288(SEP 14) Ca L 8.4(SEP 17)8.7(SEP 16)L 7.9(SEP 15)L 8.2(SEP 14) PT 12.1(SEP 17)12.2(SEP 17)14.1(SEP 16)H 34.0(SEP 15) INR 1.0(SEP 17)1.0(SEP 17)1.2(AUGUST 16)2.8(OCT 02) PTT 29.9(OCT 05)H 35.8(OCT 04)L 23.9(OCT 04) Total CK <15(OCT 02)<15(OCT 01) , Lab results 10/05/2022 7:17 EDT SN - GCD - ASA Class 3 SN - GCD - Post-operative Diagnosis UPPER BACK WOUND SN - GCD - Case Level Level 3 10/05/2022 7:16 EDT SN - CAt - Case Attendee SN - CAt - Case Attendee SN - CAt - Case Attendee SN - CAt - Case Attendee SN - CAt - Case Attendee SN - CAt - Case Attendee SN - CAt - Case Attendee SN - CAt - Case Attendee SN - CAt - Case Attendee SN - CAt - Case Attendee SN - CAt - Case Attendee SN - CAt - Case Attendee SN - CAt - Role Performed Primary Surgeon SN - CAt - Role Performed Anesthesiologist SN - CAt - Role Performed PIER RUNNER SN - CAt - Role Performed Recreation Director 1 SN - CAt - Role Performed Manufacturing Test Technician 1 SN - CAt - Role Performed Scrub 1 10/05/2022 6:59 EDT Heart Rate Monitored 75 bpm Respiratory Rate 18 br/min Heart Rhythm Regular Cardiac Rhythm 1:1 V Pacing with Capture 10/05/2022 6:42 EDT WBC 11.0 10^3/mcL HI RBC 4.76 10^6/mcL Hgb 13.2 G/dL Hct 40.2 % MCV 84.4 fL MCH 27.7 pg MCHC 32.8 G/dL RDW 14.9 % Platelet 313 10^3/mcL MPV 8.8 fL Neutrophil % 66.5 % Lymphocyte % 18.9 % LOW Monocyte % 11.2 % Eosinophil % 1.9 % Basophil % 1.5 % Neutrophil, Absolute 7.3 10^3/mcL Lymphocyte, Absolute 2.1 10^3/mcL Monocyte, Absolute 1.2 10^3/mcL Eosinophil, Absolute 0.2 10^3/mcL Basophil, Absolute 0.2 10^3/mcL Heparin dose (APTT) Heparin IV APTT 29.9 seconds 10/05/2022 6:21 EDT CHG Preoperative Wash/Wipe Site specific wipe 10/05/2022 6:19 EDT Pain Scale Assessment 0-10 Pain scale Primary Pain Location Generalized Primary Pain Intensity 2 Reason for PRN medication Pain management PRN medication effectiveness Yes PRN Medication Effectiveness Evaluation PRN Medication Effectiveness Evaluation 10/05/2022 6:01 EDT CHG Preoperative Wash/Wipe Day of procedure heparin unit(s)/hr unit(s) Dextrose 5% Premix Diluent Dextrose 5% Premix Diluent mL 10/05/2022 5:31 EDT Mechanical VTE Prophylaxis Education Not Done: See ICU flow (Not Done) Sequential Compression Device Form Not Done (Not Done) 10/05/2022 5:08 EDT External 09/30/2022 Urinary Catheter Output: 600 mL 10/05/2022 4:55 EDT Primary Pain Location Shoulder Primary Pain Intensity 7 Primary Pain Nonverbal Response Nods Yes Pain Scale Type 0-10 Pain scale Nail Bed Color [place] Capillary Refill < 2 seconds Heart Sounds ICU [id number] Heart Rhythm Regular Dorsalis Pedis Pulse, Left 2+ Normal Dorsalis Pedis Pulse, Right 2+ Normal Radial Pulse, Left 2+ Normal Radial Pulse, Right 2+ Normal Cardiac Rhythm 1:1 V Pacing with Capture Monitoring Lead II, V1/MCL1 Alarms On and Functional Yes Heart Rate Alarm Set At - Low 50 Heart Rate Alarm Set At - High 120 Respirations Unlabored Respiratory Pattern Regular Breath Sounds Auscultated Anterior only All Lobes Breath Sounds Clear, Diminished Tracheal Position Midline Abdomen Description Non-distended Abdomen Palpation Non-Tender Bowel Sounds All Quadrants Present Urinary Elimination Voiding, no difficulties Urinary Elimination Devices External catheter Facial Movement Makes facial grimaces Skin Symptoms Ulcers/Lesions All Extremity Description Normal for ethnicity Skin Temperature Warm Temperature All Extremities Warm Skin Description Normal for ethnicity Skin Integrity Not intact Skin Turgor Non-Elastic Mucous Membrane Color [place] Mucous Membrane Description Moist Back Upper Skin Abnormality Type: Surgical incision Incision, Wound Dressing/Activity: Assessed Incision, Wound Dressing Assessment: Clean, Dry, Intact Incision, Wound Dressing: Vacuum assisted closure Wound Drainage Device: Incisional wound negative pressure system Negative Pressure Wound SettinmmHg Neg Pressure Wound Therapy Dressing: Black Sponge Wound Exudate Amount: Small Wound Exudate Type: Serosanguineous Wound Exudate Odor: None Incision, Wound Surrounding Tissue: Erythema Wound Status: No complications Forearm Right 10/03/2022 22 gauge Peripheral IV Activity: Assessed Peripheral IV Dressing Condition: Clean, Dry, Intact Peripheral IV Dressing Activity: Transparent dressing Peripheral IV Line Status/Patency: Continuous infusion Peripheral IV Site Condition: No complications Peripheral IV Equipment: IV Pump Neurological Language Able to speak clearly Neurological Symptoms Weakness Gait Unable to assess Extremity Movement Equal Swallowing Difficulty Pills Characteristics of Communication Appropriate Characteristics of Speech Clear Facial Symmetry Symmetric Level of Consciousness Alert Aspiration Risk None Eye Opening Response Inna Spontaneously Best Motor Response [place] simple commands Best Verbal Response [place] Oriented [place] Coma Score 15 FRAN Yes Left Pupil Description Regular, Round Right Pupil Description Regular, Round Left Pupil Reaction Brisk Right Pupil Reaction Brisk Pupil Size, Left 3 mm Pupil Size, Right 3 mm Strength All Extremities Moderate Left Upper Extremity Sensation Intact Right Upper Extremity Sensation Intact Left Lower Extremity Sensation Intact Right Lower Extremity Sensation Intact CN V Facial Sensation Light touch equal bilaterally CN VII Facial Expression and Symmetry Facial movement symmetrical CN VIII Hearing Spoken word equally audible left/right CN IX, X Swallowing, Gag Reflex Swallowing present Affect/Behavior Appropriate, Calm, Cooperative Orientation Oriented x 4 NPO Status Maintained HYDROmorphone 1 mg mg 10/05/2022 3:24 EDT Temperature Oral 37.3 DegC Apical Heart Rate 70 bpm Respiratory Rate 18 br/min Systolic Blood Pressure Non-Invasive 138 mmHg Diastolic Blood Pressure Non-Invasive 83 mmHg Reason For Taking VItal Signs Routine Oxygen Therapy Nasal cannula 0L-6L Oxygen Saturation 97 % Oxygen Flow Rate 2 Activity Status ADL Awake, Dangle Standard Safety Safety level maintained High Risk Safety Room check performed Demonstrates Correct Call Light Use Yes 10/05/2022 2:35 EDT Mechanical VTE Prophylaxis Education Not Done: Patient Refused (Not Done) Sequential Compression Device Form Not Done (Not Done) 10/05/2022 1:29 EDT External 09/30/2022 Urinary Catheter Activity: Changed Urinary Catheter Care Completed: Yes 10/05/2022 1:28 EDT CHG Preoperative Wash/Wipe Night before procedure Bed Bath Maximum assistance, Two assist Skin Care Product Applied CHG bath Nikki Care Maximum assistance Linen Change Done 10/05/2022 0:26 EDT heparin 4,000 unit(s) unit(s) heparin 1,200 unit(s)/hr unit(s) Dextrose 5% Premix Diluent Dextrose 5% Premix Diluent mL 10/05/2022 0:00 EDT NPO Status Maintained 10/04/2022 23:56 EDT Violence Risk Confused No Violence Risk Irritable No Violence Risk Boisterous No Violence Risk Verbal Threats No Violence Risk Physical Threats No Violence Risk Attacking Objects No Violence Risk Predictor Score 0 Violence Risk Intervention None Violence Risk Current Interventions None Able To Drink Order Detail Yes Able To Sign Consents Order Detail No Code Status Order Detail Full code IV Order Detail Yes Dialysis Schedule Order Detail N/A Has Diabetes Order Detail Yes Isolation Precautions Order Detail Contact Nurse Collect Order Detail 0 Oxygen Order Detail Yes Order Detail N/A Prior Valve Replacement Order Detail No Transport Mode Order Detail MTT with Monitor 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 Details Form 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 Details Form 10/04/2022 23:26 EDT Heparin dose (APTT) Heparin IV APTT 35.8 seconds HI 10/04/2022 22:57 EDT Temperature Oral 36.8 DegC Peripheral Pulse Rate 70 bpm Respiratory Rate 18 br/min Systolic Blood Pressure Non-Invasive 133 mmHg Diastolic Blood Pressure Non-Invasive 74 mmHg Reason For Taking VItal Signs Routine Primary Pain Intensity 0 Primary Pain Nonverbal Response Nods No Pain Scale Type 0-10 Pain scale Nail Bed Color [place] Capillary Refill < 2 seconds Dorsalis Pedis Pulse, Left 2+ Normal Dorsalis Pedis Pulse, Right 2+ Normal Radial Pulse, Left 2+ Normal Radial Pulse, Right 2+ Normal Cardiac Rhythm 1:1 V Pacing with Capture Monitoring Lead II, V1/MCL1 QRS Duration 0.17 second(s) Alarms On and Functional Yes Heart Rate Alarm Set At - Low 50 Heart Rate Alarm Set At - High 120 Respirations Unlabored Respiratory Pattern Regular Breath Sounds Auscultated Anterior only All Lobes Breath Sounds Clear, Diminished Oxygen Therapy Nasal cannula 0L-6L Oxygen Saturation 95 % Oxygen Flow Rate 2 Tracheal Position Midline Abdomen Description Non-distended, Soft Abdomen Palpation Non-Tender, Soft Passing Flatus Yes Bowel Sounds All Quadrants Present Urinary Elimination Voiding, no difficulties Urinary Elimination Devices External catheter External 09/30/2022 Urinary Catheter Activity: Assessed Urinary Catheter Site Condition: No complications Facial Movement Makes facial grimaces Skin Symptoms Ulcers/Lesions All Extremity Description Normal for ethnicity Skin Temperature Warm Temperature All Extremities Warm Skin Description Normal for ethnicity Skin Integrity Not intact Skin Turgor Non-Elastic Mucous Membrane Color [place] Mucous Membrane Description Moist Sensory Perception Nolan Slightly limited Moisture Nolan Occasionally moist Activity Nolan Bedfast Mobility Nolan Very limited Nutrition Nolan Adequate Friction and Shear Nolan Potential problem Nolan Score 14 Hospital Acquired Pressure Injury Risk Moderate risk (score 13-14) Shoulder Left Posterior Skin Abnormality Type: Procedure site Incision, Wound Dressing/Activity: Assessed Incision, Wound Dressing Assessment: Clean, Dry, Intact Incision, Wound Dressing: Vacuum assisted closure Buttock Inner Skin Abnormality Type: Incontinence associated dermatitis Incision, Wound Dressing/Activity: Open to air Abdomen Skin fold Skin Abnormality Type: Moisture associated dermatitis Incision, Wound Dressing: Open to air Groin Skin Abnormality Type: Moisture associated dermatitis Incision, Wound Dressing: Open to air Multiple scattered Skin Abnormality Type: Abrasion Incision, Wound Dressing/Activity: Open to air Back Upper Skin Abnormality Type: Surgical incision Incision, Wound Dressing/Activity: Assessed Incision, Wound Dressing Assessment: Clean, Dry, Intact Incision, Wound Dressing: Vacuum assisted closure Wound Drainage Device: Incisional wound negative pressure system Negative Pressure Wound SettinmmHg Neg Pressure Wound Therapy Dressing: Black Sponge Wound Exudate Amount: Small Wound Exudate Type: Serosanguineous Wound Exudate Odor: None Incision, Wound Surrounding Tissue: Erythema Wound Status: No complications Forearm Right 10/03/2022 22 gauge Peripheral IV Activity: Assessed Peripheral IV Dressing Condition: Clean, Dry, Intact Peripheral IV Dressing Activity: Transparent dressing Peripheral IV Line Status/Patency: Continuous infusion Peripheral IV Site Condition: No complications Peripheral IV Equipment: IV Pump Neurological Language Able to speak clearly, Follows simple commands Neurological Symptoms Weakness Gait Unable to assess Extremity Movement Equal Swallowing Difficulty Pills Characteristics of Communication Appropriate Characteristics of Speech Clear Facial Symmetry Symmetric Level of Consciousness Alert Aspiration Risk None Eye Opening Response Inna Spontaneously Best Motor Response Inna Obeys simple commands Best Verbal Response Inna Oriented [place] Coma Score 15 FRAN Yes Left Pupil Description Regular, Round Right Pupil Description Regular, Round Left Pupil Reaction Brisk Right Pupil Reaction Brisk Pupil Size, Left 3 mm Pupil Size, Right 3 mm Strength All Extremities Moderate Left Upper Extremity Sensation Intact Right Upper Extremity Sensation Intact Left Lower Extremity Sensation Intact Right Lower Extremity Sensation Intact CN V Facial Sensation Light touch equal bilaterally CN VII Facial Expression and Symmetry Facial movement symmetrical CN VIII Hearing Spoken word equally audible left/right CN IX, X Swallowing, Gag Reflex Swallowing present Affect/Behavior Appropriate, Calm, Cooperative Orientation Oriented x 4 Activity Status ADL Awake, Refused to be turned, Resting, Watching TV Standard Safety Safety level maintained High Risk Safety Room check performed Demonstrates Correct Call Light Use Yes Appetite Excellent Eating Difficulties None 10/04/2022 22:18 EDT Mechanical VTE Prophylaxis Education Not Done: Other (Not Done) Sequential Compression Device Form Not Done (Not Done) 10/04/2022 22:15 EDT Individuals Taught Patient Learning Readiness low motivation level Barriers to Learning None evident Teaching Method Explanation Teaching Evaluation Needs further teaching Identify Action of Anticoagulant Yes Identify Reason/Purpose of Anticoagulant Yes Reason/Purpose of Anticoagulant Rx or prevent blood clots Identify Side Effects of Anticoagulant Reinforced Identify Activities Causing Cuts/Bruises Not done this session Id. Problems Requiring Phy. Notification Not done this session Id. Importance of Follow-Up Lab Work Not done this session Identify Generic and Trade Names of Med Yes 10/04/2022 22:06 EDT Violence Risk Confused No Violence Risk Irritable No Violence Risk Boisterous No Violence Risk Verbal Threats No Violence Risk Physical Threats No Violence Risk Attacking Objects No Violence Risk Predictor Score 0 Violence Risk Intervention None Violence Risk Current Interventions None 10/04/2022 21:37 EDT atorvastatin 20 mg mg insulin glargine 20 unit(s) unit(s) metroNIDAZOLE 500 mg mg sotalol 80 mg mg 10/04/2022 21:13 EDT Blood Glucose, Capillary 173 mg/dL HI Blood Glucose Testing Reason Routine 10/04/2022 19:59 EDT Hospitalist Progress Note Progress Note 10/04/2022 19:59 EDT Primary Pain Intensity 0 Primary Pain Nonverbal Response Nods No Pain Scale Type 0-10 Pain scale Nail Bed Color [place] Capillary Refill < 2 seconds Dorsalis Pedis Pulse, Left 2+ Normal Dorsalis Pedis Pulse, Right 2+ Normal Radial Pulse, Left 2+ Normal Radial Pulse, Right 2+ Normal Cardiac Rhythm 1:1 V Pacing with Capture Monitoring Lead II, V1/MCL1 Alarms On and Functional Yes Heart Rate Alarm Set At - Low 50 Heart Rate Alarm Set At - High 120 Respirations Unlabored Respiratory Pattern Regular Breath Sounds Auscultated Anterior only All Lobes Breath Sounds Clear, Diminished Tracheal Position Midline Abdomen Description Non-distended, Soft Abdomen Palpation Non-Tender, Soft Passing Flatus Yes Bowel Sounds All Quadrants Present Urinary Elimination Voiding, no difficulties Urinary Elimination Devices External catheter External 09/30/2022 Urinary Catheter Activity: Assessed Urinary Catheter Site Condition: No complications Facial Movement Makes facial grimaces Skin Symptoms Ulcers/Lesions All Extremity Description Normal for ethnicity Skin Temperature Warm Temperature All Extremities Warm Skin Description Normal for ethnicity Skin Integrity Not intact Skin Turgor Non-Elastic Mucous Membrane Color [place] Mucous Membrane Description Moist Sensory Perception Nolan Slightly limited Moisture Nolan Occasionally moist Activity Nolan Bedfast Mobility Nolan Very limited Nutrition Nolan Adequate Friction and Shear Nolan Potential problem Nolan Score 14 Hospital Acquired Pressure Injury Risk Moderate risk (score 13-14) Buttock Inner Skin Abnormality Type: Incontinence associated dermatitis Incision, Wound Dressing/Activity: Open to air Abdomen Skin fold Skin Abnormality Type: Moisture associated dermatitis Incision, Wound Dressing: Open to air Groin Skin Abnormality Type: Moisture associated dermatitis Incision, Wound Dressing: Open to air Multiple scattered Skin Abnormality Type: Abrasion Incision, Wound Dressing/Activity: Open to air Back Upper Skin Abnormality Type: Surgical incision Incision, Wound Dressing/Activity: Assessed Incision, Wound Dressing Assessment: Clean, Dry, Intact Incision, Wound Dressing: Vacuum assisted closure Wound Drainage Device: Incisional wound negative pressure system Negative Pressure Wound SettinmmHg Neg Pressure Wound Therapy Dressing: Black Sponge Incision, Wound Cleansing: Soaked in soap and water Wound Exudate Amount: Small Wound Exudate Type: Serosanguineous Wound Exudate Odor: None Incision, Wound Surrounding Tissue: Erythema Wound Status: No complications Forearm Right 10/03/2022 22 gauge Peripheral IV Activity: Assessed Peripheral IV Dressing Condition: Clean, Dry, Intact Peripheral IV Dressing Activity: Transparent dressing Peripheral IV Line Status/Patency: Continuous infusion Peripheral IV Site Condition: No complications Peripheral IV Equipment: IV Pump Neurological Language Able to speak clearly, Follows simple commands Neurological Symptoms Weakness Gait Unable to assess Extremity Movement Equal Swallowing Difficulty Pills Characteristics of Communication Appropriate Characteristics of Speech Clear Facial Symmetry Symmetric Level of Consciousness Alert Aspiration Risk None Eye Opening Response Inna Spontaneously Best Motor Response Inna Obeys simple commands Best Verbal Response [place] Oriented [place] Coma Score 15 FRAN Yes Strength All Extremities Moderate Left Upper Extremity Sensation Intact Right Upper Extremity Sensation Intact Left Lower Extremity Sensation Intact Right Lower Extremity Sensation Intact CN V Facial Sensation Light touch equal bilaterally CN VII Facial Expression and Symmetry Facial movement symmetrical CN VIII Hearing Spoken word equally audible left/right CN IX, X Swallowing, Gag Reflex Swallowing present Tamez Screen Daily History of Fall in Last 3 Months Tamez No Presence of Secondary Diagnosis Tamez Yes Use of Ambulatory Aid Tamez Crutches, cane, walker IV/PRN Adapter Fall Risk Tamez Yes Gait Weak or Impaired Fall Risk Tamez Weak Mental Status Fall Risk Tamez Forgets limitations Tamez Fall Risk Score 75 HI Affect/Behavior Appropriate, Calm, Cooperative Orientation Oriented x 4, Forgetful Activity Status ADL Awake, Resting, Watching TV Standard Safety ID band on, Allergy Band on, Call device within reach, Bed in low position, Wheels locked, Upper/Half-Length side-rails up, Phone within reach, personal items within reach, Safety level maintained, Non-Slip footwear High Risk Safety Identified as high risk, Fall ID band on, Room located near nursing station, Bed alert on, Non-Slip footwear, Reoriented, Room check performed, High risk door magnet present Demonstrates Correct Call Light Use Yes Appetite Excellent Eating Difficulties None 10/04/2022 19:08 EDT Temperature Oral 36.7 DegC Peripheral Pulse Rate 74 bpm Respiratory Rate 18 br/min Systolic Blood Pressure Non-Invasive 122 mmHg Diastolic Blood Pressure Non-Invasive 75 mmHg Reason For Taking VItal Signs Routine Oxygen Therapy Nasal cannula 0L-6L Oxygen Saturation 96 % Oxygen Flow Rate 2 10/04/2022 18:35 EDT Activity Status ADL Refused to be turned, Resting Standard Safety Safety level maintained High Risk Safety Room check performed Demonstrates Correct Call Light Use Yes 10/04/2022 18:20 EDT Mechanical VTE Prophylaxis Education Not Done: Task Duplication (Not Done) Sequential Compression Device Form Not Done (Not Done) 10/04/2022 18:19 EDT Individuals Taught Patient Learning Readiness low motivation level Barriers to Learning None evident Teaching Method Explanation Preferred Spoken Language Bhutanese Preferred Written Language Bhutanese Disease Process General Education Disease process, Signs/Symptoms to report Environment/Rights Education Room Layout Equipment Education software clerk Diagnostic Procedures Education Blood Glucose monitoring Medication Education Dose / Route / Schedule Teaching Evaluation Needs reinforcement Mechanical VTE Prophylaxis Education Not Done: Task Duplication (Not Done) Identify Action of Anticoagulant Yes Identify Reason/Purpose of Anticoagulant Yes Reason/Purpose of Anticoagulant Rx or prevent blood clots Identify Side Effects of Anticoagulant Yes Identify Activities Causing Cuts/Bruises Not done this session Id. Problems Requiring Phy. Notification Not done this session Id. Importance of Follow-Up Lab Work Not done this session Identify Generic and Trade Names of Med N/A Supplement Intake 235 mL Sequential Compression Device Form Not Done (Not Done) 10/04/2022 18:17 EDT Able To Drink Order Detail Not Done: Task Duplication (Not Done) Able To Sign Consents Order Detail Not Done: Task Duplication (Not Done) Code Status Order Detail Not Done: Task Duplication (Not Done) IV Order Detail Not Done: Task Duplication (Not Done) Dialysis Schedule Order Detail Not Done: Task Duplication (Not Done) Has Diabetes Order Detail Not Done: Task Duplication (Not Done) Isolation Precautions Order Detail Not Done: Task Duplication (Not Done) Nurse Collect Order Detail Not Done: Task Duplication (Not Done) Oxygen Order Detail Not Done: Task Duplication (Not Done) Order Detail Not Done: Task Duplication (Not Done) Prior Valve Replacement Order Detail Not Done: Task Duplication (Not Done) Transport Mode Order Detail Not Done: Task Duplication (Not Done) 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 Details Form Not Done (Not Done) 10/04/2022 18:02 EDT Pain Scale Assessment 0-10 Pain scale Primary Pain Location Shoulder Primary Pain Intensity 0 Reason for PRN medication Pain management PRN medication effectiveness Yes PRN Medication Effectiveness Evaluation PRN Medication Effectiveness Evaluation 10/04/2022 17:02 EDT Primary Pain Intensity 4 Activity Status ADL Resting Standard Safety Safety level maintained High Risk Safety Room check performed acetaminophen-oxycodone 1 tab(s) tab(s) DAPTOmycin 600 mg mg heparin Begin Bag 2.5 mL unit(s) heparin 4,000 unit(s) unit(s) insulin lispro 2 unit(s) unit(s) insulin lispro 8 unit(s) unit(s) Dextrose 5% Premix Diluent Begin Bag 250 mL mL Sodium Chloride 0.9% 50 mL mL 10/04/2022 17:01 EDT Appetite Excellent Eating Difficulties None 10/04/2022 16:25 EDT Heparin dose (APTT) Heparin IV APTT 23.9 seconds LOW Protime 12.1 seconds PT International Ratio 1.0 ratio NA 10/04/2022 16:05 EDT Blood Glucose, Capillary 176 mg/dL HI Blood Glucose Testing Reason Routine 10/04/2022 15:31 EDT metroNIDAZOLE 500 mg mg 10/04/2022 15:30 EDT Primary Pain Intensity 0 Primary Pain Nonverbal Response Nods No Pain Scale Type 0-10 Pain scale Heart Sounds ICU S1S2 Heart Rhythm Regular Dorsalis Pedis Pulse, Left 2+ Normal Dorsalis Pedis Pulse, Right 2+ Normal Radial Pulse, Left 2+ Normal Radial Pulse, Right 2+ Normal Respirations Unlabored Respiratory Pattern Regular Breath Sounds Auscultated Anterior and posterior All Lobes Breath Sounds Clear, Diminished Tracheal Position Midline Abdomen Description Non-distended Abdomen Palpation Non-Tender Passing Flatus Yes Bowel Sounds All Quadrants Present Urinary Elimination Voiding, no difficulties Urinary Elimination Devices External catheter Back Upper Skin Abnormality Type: Surgical incision Wound Status: No complications Neurological Language Able to speak clearly Neurological Symptoms Weakness Gait Unable to assess Extremity Movement Equal Characteristics of Communication Appropriate Characteristics of Speech Clear Level of Consciousness Alert FRAN Yes Strength All Extremities Moderate Left Upper Extremity Sensation Intact Right Upper Extremity Sensation Intact Left Lower Extremity Sensation Intact Right Lower Extremity Sensation Intact Affect/Behavior Appropriate, Calm, Cooperative Orientation Oriented x 4 Activity Status ADL Awake, Lights dimmed, Repositioned right side Appetite Good Eating Difficulties None Stool Count 0 EA 10/04/2022 14:34 EDT (more content not included)... [id number] Note If ancillary studies were utilized, the following Laboratory Developed Test (LDT) disclaimer will apply: Under CLIA requirements, [facility] is qualified to perform high complexity testing. For all ancillary stains, positive and negative controls stain appropriately. Performance characteristics of immunohistochemical and chromogenic in-situ hybridization tests have been determined by [facility]. These tests are used for clinical purposes, They should not be regarded as investigational or for research. [facility] 07-17-2023 [facility] Progress note Date of Service 10/04/2022 Chief Complaint Postoperative Subjective Patient seen resting supine in bed earlier this morning. She denied significant overnight events orconcerns. Overall, she reports that her pain and itching to the left neck/upper back has improved postoperatively. She denied other complaints or concerns. Objective Vitals and Measurements T: 37.0 C (Oral) TMIN: 36.0 C (Temporal Artery) TMAX: 37.6 C (Oral) HR: 72 RR: 18 BP: 155/79 SpO2: 98% Intake and Output 7AM Yesterday to 7AM Today Intake and Output (Last 24 hours) Intake Administration Information 400.00 Oral Intake 240.00 Output Urinary Catheter Output: 500.00 Intra-Op EBL 100.00 Stool Count 0.00 Total Summary Total Intake 640.00 Total Output 600.00 Fluid Balance 40.00 Physical Exam General: Awake and alert. In no apparent distress. Able to answer questions appropriately and speakin full sentences. Supine in bed. Neck/upper back: Sclera anicteric. Wound VAC in place to left lower neck/left upper back. Heart: Regular rate and rhythm. S1 and S2 present. Lungs: Chest rise symmetrical. Respirations unlabored. Lungs clear upon auscultation. Abdomen: Soft and nontender. Nondistended. No rigidity or guarding noted. Bowel sounds present. Extremities: Freely moving. Psychiatric: Calm and cooperative. Weight Dosing Weight: 99.3 kg (10/02/22) Medications Medications (21) Active Scheduled: (14) amLODIPine 5 mg tablet 5 mg 1 tab(s), Oral, qDay atorvastatin 20 mg tablet 20 mg 1 tab(s), Oral, qDay cholecalciferol 125 mcg capsule (Vit D3 5000 unit(s)) 125 mcg 1 cap(s), Oral, qDay DAPTOmycin 600 mg 12 mL, IV Piggyback, qDay furosemide 40 mg tablet 40 mg 1 tab(s), Oral, qDay insulin glargine 20 unit(s) 0.2 mL, Subcutaneous (INT), BID insulin lispro 100 units/mL Soln (3 mL) 8 unit(s) 0.08 mL, Subcutaneous, TIDAC insulin lispro 100 units/mL Soln (3 mL) Give 0-10 units/dose, Subcutaneous, TIDAC lisinopril 20 mg tablet 40 mg 2 tab(s), Oral, qDay meropenem 500 mg, IV Piggyback, q6h metoprolol tartrate 25 mg tablet 25 mg 1 tab(s), Oral, Daily Misc communication order 1 EA, Miscellaneous, Daily Pharmacy Consult 1 EA, Miscellaneous, Daily sotalol 80 mg Tablet 80 mg 1 tab(s), Oral, qHS Continuous: (0) PRN: (7) acetaminophen 325 mg Tablet 650 mg 2 tab(s), Oral, q4h acetaminophen-OXYcodone 325 mg-5 mg Tablet 1 tab(s), Oral, q4h acetaminophen-OXYcodone 325 mg-5 mg Tablet 2 tab(s), Oral, q4h albuterol - ipratropium 2.5 mg-0.5 mg/3 mL Inhal Valerie UD 3 mL, Inhalation, q4hRT HYDROmorphone 0.5 mg/0.5 mL PF syringe 0.5 mg 0.5 mL, IV Push, q2h hydromorphone 1 mg/mL (1mL) INJ 1 mg 1 mL, IV Push, q2h ondansetron 2 mg/ 1 mL 2 mL INJ 4 mg 2 mL, IV Push, q4h Lab Results 10/04 05:21 WBC: 12.8 H Hgb: 13.1 Hct: 40.1 Platelet: 248 Neutrophil %: 86.3 H Protime: 12.2 PT International Ratio: 1.0 Glucose Level: 269 H Sodium Level: 136 Potassium Level: 4.2 BUN: 26.0 H Creatinine Lvl (s): 0.83 10/03 20:53 WBC: 11.2 H Hgb: 13.9 Hct: 41.8 Platelet: 261 Neutrophil %: 91.7 H 10/03 08:29 Protime: 14.1 PT International Ratio: 1.2 Glucose Level: 164 H Sodium Level: 137 Potassium Level: 4.2 BUN: 23.0 H Creatinine Lvl (s): 0.76 EKG No qualifying data available. Assessment/Plan This patient is a 72-year-old female who is postoperative day #1 following incision and drainage ofa left upper back abscess with placement of a wound VAC secondary to a necrotic wound. Morning laboratory data, vital signs and I/O have been reviewed. Her white blood cell count was noted to be 12.8 this morning, from 11.2 yesterday. She is receiving IV antibiotic therapy. On examination, she was seen resting supine in bed. She did not appear toxic or in any acute distress. The wound VAC was in place to the operative site with a good seal. She overall reported improvement in her pain and itching to the left neck/upper back wound. Plan: Continue IV antibiotic administration at this time. Will discuss wound care orders with Dr. Burnett. Additionally, will discuss timing for reinitiation of her anticoagulation with Dr. Burnett. Further medical management per the primary medical team. Please see the addendum for further details. Digitally Signed by VIDHI COULTER on 10/04/2022 12:14 PM [id number] Progress note Date of Service 10/04/2022 Chief Complaint Postoperative Subjective Patient seen resting supine in bed earlier this morning. She denied significant overnight events orconcerns. Overall, she reports that her pain and itching to the left neck/upper back has improved postoperatively. She denied other complaints or concerns. Objective Vitals and Measurements T: 37.0 C (Oral) TMIN: 36.0 C (Temporal Artery) TMAX: 37.6 C (Oral) HR: 72 RR: 18 BP: 155/79 SpO2: 98% Intake and Output 7AM Yesterday to 7AM Today Intake and Output (Last 24 hours) Intake Administration Information 400.00 Oral Intake 240.00 Output Urinary Catheter Output: 500.00 Intra-Op EBL 100.00 Stool Count 0.00 Total Summary Total Intake 640.00 Total Output 600.00 Fluid Balance 40.00 Physical Exam General: Awake and alert. In no apparent distress. Able to answer questions appropriately and speakin full sentences. Supine in bed. Neck/upper back: Sclera anicteric. Wound VAC in place to left lower neck/left upper back. Heart: Regular rate and rhythm. S1 and S2 present. Lungs: Chest rise symmetrical. Respirations unlabored. Lungs clear upon auscultation. Abdomen: Soft and nontender. Nondistended. No rigidity or guarding noted. Bowel sounds present. Extremities: Freely moving. Psychiatric: Calm and cooperative. Weight Dosing Weight: 99.3 kg (10/02/22) Medications Medications (21) Active Scheduled: (14) amLODIPine 5 mg tablet 5 mg 1 tab(s), Oral, qDay atorvastatin 20 mg tablet 20 mg 1 tab(s), Oral, qDay cholecalciferol 125 mcg capsule (Vit D3 5000 unit(s)) 125 mcg 1 cap(s), Oral, qDay DAPTOmycin 600 mg 12 mL, IV Piggyback, qDay furosemide 40 mg tablet 40 mg 1 tab(s), Oral, qDay insulin glargine 20 unit(s) 0.2 mL, Subcutaneous (INT), BID insulin lispro 100 units/mL Soln (3 mL) 8 unit(s) 0.08 mL, Subcutaneous, TIDAC insulin lispro 100 units/mL Soln (3 mL) Give 0-10 units/dose, Subcutaneous, TIDAC lisinopril 20 mg tablet 40 mg 2 tab(s), Oral, qDay meropenem 500 mg, IV Piggyback, q6h metoprolol tartrate 25 mg tablet 25 mg 1 tab(s), Oral, Daily Misc communication order 1 EA, Miscellaneous, Daily Pharmacy Consult 1 EA, Miscellaneous, Daily sotalol 80 mg Tablet 80 mg 1 tab(s), Oral, qHS Continuous: (0) PRN: (7) acetaminophen 325 mg Tablet 650 mg 2 tab(s), Oral, q4h acetaminophen-OXYcodone 325 mg-5 mg Tablet 1 tab(s), Oral, q4h acetaminophen-OXYcodone 325 mg-5 mg Tablet 2 tab(s), Oral, q4h albuterol - ipratropium 2.5 mg-0.5 mg/3 mL Inhal Valerie UD 3 mL, Inhalation, q4hRT HYDROmorphone 0.5 mg/0.5 mL PF syringe 0.5 mg 0.5 mL, IV Push, q2h hydromorphone 1 mg/mL (1mL) INJ 1 mg 1 mL, IV Push, q2h ondansetron 2 mg/ 1 mL 2 mL INJ 4 mg 2 mL, IV Push, q4h Lab Results 10/04 05:21 WBC: 12.8 H Hgb: 13.1 Hct: 40.1 Platelet: 248 Neutrophil %: 86.3 H Protime: 12.2 PT International Ratio: 1.0 Glucose Level: 269 H Sodium Level: 136 Potassium Level: 4.2 BUN: 26.0 H Creatinine Lvl (s): 0.83 10/03 20:53 WBC: 11.2 H Hgb: 13.9 Hct: 41.8 Platelet: 261 Neutrophil %: 91.7 H 10/03 08:29 Protime: 14.1 PT International Ratio: 1.2 Glucose Level: 164 H Sodium Level: 137 Potassium Level: 4.2 BUN: 23.0 H Creatinine Lvl (s): 0.76 EKG No qualifying data available. Assessment/Plan This patient is a 72-year-old female who is postoperative day #1 following incision and drainage ofa left upper back abscess with placement of a wound VAC secondary to a necrotic wound. Morning laboratory data, vital signs and I/O have been reviewed. Her white blood cell count was noted to be 12.8 this morning, from 11.2 yesterday. She is receiving IV antibiotic therapy. On examination, she was seen resting supine in bed. She did not appear toxic or in any acute distress. The wound VAC was in place to the operative site with a good seal. She overall reported improvement in her pain and itching to the left neck/upper back wound. Plan: Continue IV antibiotic administration at this time. Will discuss wound care orders with Dr. Burnett. Additionally, will discuss timing for reinitiation of her anticoagulation with Dr. Burnett. Further medical management per the primary medical team. Please see the addendum for further details. Digitally Signed by VIDHI COULTER on 10/04/2022 12:14 PM [id number] Infectious disease Progress note Date of Service 10/04/2022 October 01, 2022 Infectious Disease Attending Note: Impression: Patient with multiple medical problems has a huge indurated area on her neck and upper back which is firmly indurated, nonfluctuant with a MRSE isolated from the blood presently on meropenem and clindamycin. The cellulitis extends from the posterior back mostly on the left anteriorly on the left inthe neck I do not think it involves any area right near the vessels but could be incorrect on that.Apparently there was a CT scan of the neck at [facility] but I have not been able to visualize this With her diabetes and poor control I think the staph epi is probably not a contaminant and way wellbe significant. I do not think this is a necrotizing fasciitis I do not detect any fluctuance or crepitance at the present time and she does not look toxic but her blood sugars are very elevated. Some of this may have been some bleeding into the tissues as well but I think it is infected also especially given her white blood cell count of 21,000 and her blood sugars in the 300s. I recommend serial imaging studies and I would consult surgery. Patient does have a pacemaker and I think there is some risk for seeding of this even with the staph epi. I would add daptomycin (has a vancomycin allergy) and get a general surgery consult I would repeat the CT scan tomorrow I will check a CPK as I would also worry about myositis both bacterial and diabetic Patient tells me she is up-to-date on her tetanus shot and she has a penicillin allergy (clearly she is tolerating the carbapenem)\ Addendum: Patient has a pro time of 49 and an INR of 4.0 the nurses tell me that she is on Coumadinat home--she was on heparin here but has been discontinued October 02, 2022 Impression: Back abscess with not surprisingly with Staph aureus If blood cultures truly staph epi probably less likely of metastatic spread and may require a lesser course of intravenous antibiotics Positive blood cultures but appears to be staph epi we will wait for the final identification because I am surprised there is not Staph aureus. Certainly with her diabetes, pacemaker would be worried about metastatic spread and involvement of the pacemaker and possibly the heart or other structures though none evident at present There is no general surgery on the note as of yet but she is been seen I believe and is on the schedule for surgery tomorrow all of which I agree with I think we can discontinue the clindamycin probably could do the meropenem to but I will wait 1 more day waiting for final culture results Patient has a allergy to vancomycin, penicillin, Cipro and Biaxin as well supposedly) so patient presently on daptomycin October 03, 2022 Impression 1. Huge back abscess probably no sepsis. Staph hominis might be significant but it is probably all MRSA 2. White blood cell count was down to 13 yesterday on antibiotics alone 3. Probably all secondary to Staph aureus simplify antibiotics DC the clindamycin today and possibly the meropenem in the next 1 to 2 days if no other isolates other than Staph aureus Patient has a penicillin allergy of unknown type the reason she is on the meropenem Continue the daptomycin for now October 04, 2022 Impression: The patient's blood cultures grew Staph hominis this is of uncertain significance the MRSA from theback I think is a significant pathogen. At this point in time I would continue the vancomycin and discontinue the meropenem but place her on p.o. Flagyl for a couple of days if all the anaerobic cultures are negative I would discontinue it. Additionally since the patient did not have any positive Staph aureus blood cultures we do not necessarily need to treat her with IV antibiotics for 2 weeks nor work her up for endocarditis but couldpossibly use oral antibiotics on her I would possibly change her to trimethoprim sulfa in a few days--patient is 72 years old but does have a normal creatinine and no elevated potassium watch for both. If surgery reinspect the wound in a day or 2 and its pretty clean could just treat approximately a week from today Infectious Disease Service Will Sign off Chief Complaint Sepsis secondary to left shoulder/neck cellulitis Subjective Patient evaluated at the bedside. She states that she was feeling well today. Endorses pain to her back. Denies shortness of breath or cough. Denies back or joint pain. Denies fever or chills. Deniesnight sweats. Denies urinary urgency or dysuria. Complains of urinary frequency. Reports that she ate breakfast this morning with no difficulty. Denies abdominal pain. Denies headache. Denies nausea,vomiting or diarrhea. Denies rash. Objective Vitals and Measurements T: 37.0 C (Oral) TMIN: 36.0 C (Temporal Artery) TMAX: 37.6 C (Oral) HR: 72 RR: 18 BP: 155/79 SpO2: 98% Intake and Output 7AM Yesterday to 7AM Today Intake and Output (Last 24 hours) Intake Administration Information 400.00 Oral Intake 240.00 Output Urinary Catheter Output: 700.00 Intra-Op EBL 100.00 Stool Count 0.00 Total Summary Total Intake 640.00 Total Output 800.00 Fluid Balance -160.00 Physical Exam General: No acute distress. Alert and Appropriate No change in physical exam has a wound VAC on her back decreased induration, erythema and swelling around the neck and back adjacent to the wound VAC Skin: Erythema improving on the left side of the neck, back has wound vac with surrounding erythema Lungs: Unlabored. Bilaterally clear breath sounds with no crepitation or wheeze. Cardiovascular: Heart is regular rhythm, S1S2, No extra-audible heart tones Abdomen: Abdomen is soft, nontender, nondistended. Bowel sounds positive all four quadrants. Extremities: No clubbing, cyanosis or edema. Peripheral pulses palpable. Adequate peripheral circulation. Neurological: The patient is awake, oriented x4. Following simple commands, moving all extremities. Weight Dosing Weight: 99.3 kg (10/02/22) Medications Medications (21) Active Scheduled: (14) amLODIPine 5 mg tablet 5 mg 1 tab(s), Oral, qDay atorvastatin 20 mg tablet 20 mg 1 tab(s), Oral, qDay cholecalciferol 125 mcg capsule (Vit D3 5000 unit(s)) 125 mcg 1 cap(s), Oral, qDay DAPTOmycin 600 mg 12 mL, IV Piggyback, qDay furosemide 40 mg tablet 40 mg 1 tab(s), Oral, qDay insulin glargine 20 unit(s) 0.2 mL, Subcutaneous (INT), BID insulin lispro 100 units/mL Soln (3 mL) 8 unit(s) 0.08 mL, Subcutaneous, TIDAC insulin lispro 100 units/mL Soln (3 mL) Give 0-10 units/dose, Subcutaneous, TIDAC lisinopril 20 mg tablet 40 mg 2 tab(s), Oral, qDay meropenem 500 mg, IV Piggyback, q6h metoprolol tartrate 25 mg tablet 25 mg 1 tab(s), Oral, Daily Misc communication order 1 EA, Miscellaneous, Daily Pharmacy Consult 1 EA, Miscellaneous, Daily sotalol 80 mg Tablet 80 mg 1 tab(s), Oral, qHS Continuous: (0) PRN: (7) acetaminophen 325 mg Tablet 650 mg 2 tab(s), Oral, q4h acetaminophen-OXYcodone 325 mg-5 mg Tablet 1 tab(s), Oral, q4h acetaminophen-OXYcodone 325 mg-5 mg Tablet 2 tab(s), Oral, q4h albuterol - ipratropium 2.5 mg-0.5 mg/3 mL Inhal Valerie UD 3 mL, Inhalation, q4hRT HYDROmorphone 0.5 mg/0.5 mL PF syringe 0.5 mg 0.5 mL, IV Push, q2h hydromorphone 1 mg/mL (1mL) INJ 1 mg 1 mL, IV Push, q2h ondansetron 2 mg/ 1 mL 2 mL INJ 4 mg 2 mL, IV Push, q4h Lab Results 10/04 05:21 WBC: 12.8 H Hgb: 13.1 Hct: 40.1 Platelet: 248 Neutrophil %: 86.3 H Protime: 12.2 PT International Ratio: 1.0 Glucose Level: 269 H Sodium Level: 136 Potassium Level: 4.2 BUN: 26.0 H Creatinine Lvl (s): 0.83 10/03 20:53 WBC: 11.2 H Hgb: 13.9 Hct: 41.8 Platelet: 261 Neutrophil %: 91.7 H 10/03 08:29 Protime: 14.1 PT International Ratio: 1.2 Glucose Level: 164 H Sodium Level: 137 Potassium Level: 4.2 BUN: 23.0 H Creatinine Lvl (s): 0.76 Imaging Results and Diagnostics XR Chest 1 View Result Date: October 01, 2022 Verified By: HERMELINDO CUADRA MD CLINICAL STATEMENT: IMPRESSION: Low lung volumes. Otherwise, No focal consolidation or edema. Preliminary Report was Dictated by a Resident EKG No qualifying data available. Assessment/Plan 1. Sepsis secondary to back abscess with myositis 2. Bacteremia 3. Leukocytosis 4. Type 2 diabetes 5. Sick sinus syndrome status post pacemaker 72-year-old female with past medical history consistent with sick sinus syndrome status post pacemaker, type 2 diabetes, atrial fibrillation, chronic hypoxic respiratory failure presents on 09/30 [facility] for management of left neck/shoulder cellulitis. ID following for the same in addition to bacteremia. Sepsis secondary to back abscess with myositis, chart and imaging reviewed. CT of the neck reviewedfrom [facility] shows cellulitic changes with infectious myositis. Underwent debridement of necrotic wound with placement of wound vac on 10/03. No intraoperative cultures were obtained. Surface wound culturepositive for MRSA. Bacteremia, blood cultures 09/30 2 out of 2 growing staph hominis and stap coag negative. Repeat blood cultures 10/01 show no growth to date. Echocardiogram negative for vegetation. Laboratory data reviewed, patient is improved to 12.8 and remains afebrile. We will discontinue meropenem and continue with daptomycin and add oral Flagyl for now. Discussed with my collaborating physician Dr. Almaraz, please refer to his impression. Plan of carediscussed with the patient at the bedside. All questions answered. Time Spent I spent a total of 38 minutes reviewing the patient s diagnostic labs/tests, seeing and examining the patient and documenting in the medical record, see assessment for further detail. Digitally Signed by MOLLY SHERMAN on 10/04/2022 10:59 AM Digitally Signed by RADHA ALMARAZ MD on 10/04/2022 11:24 AM [id number] Note If ancillary studies were utilized, the following Laboratory Developed Test (LDT) disclaimer will apply: Under CLIA requirements, [facility] is qualified to perform high complexity testing. For all ancillary stains, positive and negative controls stain appropriately. Performance characteristics of immunohistochemical and chromogenic in-situ hybridization tests have been determined by [facility]. These tests are used for clinical purposes, They should not be regarded as investigational or for research. [facility] 07-17-2023 Note If ancillary studies were utilized, the following Laboratory Developed Test (LDT) disclaimer will apply: Under CLIA requirements, [facility] is qualified to perform high complexity testing. For all ancillary stains, positive and negative controls stain appropriately. Performance characteristics of immunohistochemical and chromogenic in-situ hybridization tests have been determined by [facility]. These tests are used for clinical purposes, They should not be regarded as investigational or for research. [facility] 07-17-2023 Note If ancillary studies were utilized, the following Laboratory Developed Test (LDT) disclaimer will apply: Under CLIA requirements, [facility] is qualified to perform high complexity testing. For all ancillary stains, positive and negative controls stain appropriately. Performance characteristics of immunohistochemical and chromogenic in-situ hybridization tests have been determined by [facility]. These tests are used for clinical purposes, They should not be regarded as investigational or for research. [facility] 07-17-2023 Note If ancillary studies were utilized, the following Laboratory Developed Test (LDT) disclaimer will apply: Under CLIA requirements, [facility] is qualified to perform high complexity testing. For all ancillary stains, positive and negative controls stain appropriately. Performance characteristics of immunohistochemical and chromogenic in-situ hybridization tests have been determined by [facility]. These tests are used for clinical purposes, They should not be regarded as investigational or for research. [facility] 07-16-2023 Infectious disease Progress note Date of Service October 03, 2022 Infectious Disease Attending Note: Afebrile Vital signs stable Went to surgery today operative note reviewed 10 x 20 cm indurated area removed with significant amount of purulence and debrided down to bleeding tissue without any residual infection Blood cultures ( 2/2 sets staph hominis Wound culture MRSA sensitive to trimethoprim sulfa, clinda, es quinolones no linezolid testing reported Impression 1. Huge back abscess probably no sepsis. Staph hominis might be significant but it is probably all MRSA 2. White blood cell count was down to 13 yesterday on antibiotics alone 3. Probably all secondary to Staph aureus simplify antibiotics DC the clindamycin today and possibly the meropenem in the next 1 to 2 days if no other isolates other than Staph aureus Patient has a penicillin allergy of unknown type the reason she is on the meropenem Continue the daptomycin for now Digitally Signed by RADHA ALMARAZ MD on 10/03/2022 03:38 PM Digitally Signed by RADHA ALMARAZ MD on 10/03/2022 03:59 PM [id number] Anesthesiology Consult note Patient: JOHN PAUL RODRIGUEZ Age: 72 years Sex: Female : 1950 Associated Diagnoses: None Author: JORGE LUIS OROPEZA MD Assessment Postanesthesia assessment Vitals: Vital signs from flowsheet : Vital Signs 10/03/2022 14:48 EDT Temperature Oral 36.6 DegC Heart Rate Monitored 69 bpm Respiratory Rate 20 br/min Reason For Taking VItal Signs Procedure post-care 10/03/2022 14:20 EDT Temperature Temporal Artery 36.0 DegC Heart Rate Monitored 70 bpm Respiratory Rate 20 br/min Systolic Blood Pressure Non-Invasive 162 mmHg HI Diastolic Blood Pressure Non-Invasive 75 mmHg Mean Arterial Pressure (NBP) 101 mmHg 10/03/2022 13:55 EDT Temperature Temporal Artery 36.1 DegC Heart Rate Monitored 70 bpm Respiratory Rate 20 br/min Systolic Blood Pressure Non-Invasive 159 mmHg HI Diastolic Blood Pressure Non-Invasive 74 mmHg Mean Arterial Pressure (NBP) 95 mmHg 10/03/2022 13:40 EDT Heart Rate Monitored 70 bpm Respiratory Rate 20 br/min Systolic Blood Pressure Non-Invasive 155 mmHg HI Diastolic Blood Pressure Non-Invasive 61 mmHg Mean Arterial Pressure (NBP) 87 mmHg 10/03/2022 13:25 EDT Heart Rate Monitored 70 bpm Respiratory Rate 20 br/min Systolic Blood Pressure Non-Invasive 185 mmHg HI Diastolic Blood Pressure Non-Invasive 84 mmHg Mean Arterial Pressure (NBP) 110 mmHg 10/03/2022 13:10 EDT Temperature Temporal Artery 36.0 DegC Heart Rate Monitored 71 bpm Respiratory Rate 22 br/min HI Systolic Blood Pressure Non-Invasive 191 mmHg HI Diastolic Blood Pressure Non-Invasive 87 mmHg Mean Arterial Pressure (NBP) 117 mmHg Reason For Taking VItal Signs Procedure post-care 10/03/2022 13:05 EDT Respiratory Rate - Anes 12 br/min br/min 10/03/2022 13:00 EDT Respiratory Rate - Anes 15 br/min br/min 10/03/2022 12:56 EDT Systolic Blood Pressure Non-Invasive 102 mmHg mmHg Diastolic Blood Pressure Non-Invasive 78 mmHg mmHg 10/03/2022 12:55 EDT Temperature (Route Not Specified) 36.4 DegC DegC Heart Rate Monitored 84 bpm bpm Respiratory Rate - Anes 15 br/min br/min 10/03/2022 12:53 EDT Systolic Blood Pressure Non-Invasive 112 mmHg mmHg Diastolic Blood Pressure Non-Invasive 96 mmHg mmHg 10/03/2022 12:50 EDT Temperature (Route Not Specified) 36.42 DegC DegC Heart Rate Monitored 84 bpm bpm Respiratory Rate - Anes 15 br/min br/min Systolic Blood Pressure Non-Invasive 118 mmHg mmHg Diastolic Blood Pressure Non-Invasive 83 mmHg mmHg 10/03/2022 12:47 EDT Systolic Blood Pressure Non-Invasive 138 mmHg mmHg Diastolic Blood Pressure Non-Invasive 107 mmHg mmHg 10/03/2022 12:45 EDT Temperature (Route Not Specified) 36.49 DegC DegC Heart Rate Monitored 70 bpm bpm Respiratory Rate - Anes 15 br/min br/min 10/03/2022 12:44 EDT Systolic Blood Pressure Non-Invasive 129 mmHg mmHg Diastolic Blood Pressure Non-Invasive 93 mmHg mmHg 10/03/2022 12:41 EDT Systolic Blood Pressure Non-Invasive 136 mmHg mmHg Diastolic Blood Pressure Non-Invasive 87 mmHg mmHg 10/03/2022 12:40 EDT Temperature (Route Not Specified) 36.45 DegC DegC Heart Rate Monitored 76 bpm bpm Respiratory Rate - Anes 15 br/min br/min 10/03/2022 12:38 EDT Systolic Blood Pressure Non-Invasive 120 mmHg mmHg Diastolic Blood Pressure Non-Invasive 103 mmHg mmHg 10/03/2022 12:35 EDT Temperature (Route Not Specified) 36.47 DegC DegC Heart Rate Monitored 71 bpm bpm Respiratory Rate - Anes 20 br/min br/min Systolic Blood Pressure Non-Invasive 93 mmHg mmHg Diastolic Blood Pressure Non-Invasive 62 mmHg mmHg 10/03/2022 12:33 EDT Systolic Blood Pressure Non-Invasive 93 mmHg mmHg 10/03/2022 12:30 EDT Heart Rate Monitored 79 bpm bpm Respiratory Rate - Anes 20 br/min br/min 10/03/2022 12:25 EDT Respiratory Rate - Anes 20 br/min br/min 10/03/2022 12:22 EDT Systolic Blood Pressure Non-Invasive 142 mmHg mmHg Diastolic Blood Pressure Non-Invasive 108 mmHg mmHg 10/03/2022 12:20 EDT Heart Rate Monitored 70 bpm bpm Respiratory Rate - Anes 0 br/min br/min 10/03/2022 12:19 EDT Systolic Blood Pressure Non-Invasive 159 mmHg mmHg Diastolic Blood Pressure Non-Invasive 83 mmHg mmHg 10/03/2022 12:16 EDT Systolic Blood Pressure Non-Invasive 154 mmHg mmHg Diastolic Blood Pressure Non-Invasive 139 mmHg mmHg 10/03/2022 10:53 EDT Temperature Oral 36.5 DegC Peripheral Pulse Rate 71 bpm Respiratory Rate 18 br/min Systolic Blood Pressure Non-Invasive 148 mmHg HI Diastolic Blood Pressure Non-Invasive 80 mmHg Reason For Taking VItal Signs Routine 10/03/2022 7:32 EDT Apical Heart Rate 70 bpm 10/03/2022 7:31 EDT Systolic Blood Pressure Non-Invasive 142 mmHg HI Diastolic Blood Pressure Non-Invasive 90 mmHg HI 10/03/2022 7:05 EDT Temperature Oral 36.5 DegC Peripheral Pulse Rate 69 bpm Respiratory Rate 18 br/min Reason For Taking VItal Signs Routine 10/03/2022 5:06 EDT Temperature Oral 36.5 DegC Peripheral Pulse Rate 70 bpm Respiratory Rate 18 br/min Systolic Blood Pressure Non-Invasive 154 mmHg HI Diastolic Blood Pressure Non-Invasive 84 mmHg Reason For Taking VItal Signs Routine 10/02/2022 23:16 EDT Temperature Oral 36.4 DegC Peripheral Pulse Rate 70 bpm Respiratory Rate 20 br/min Systolic Blood Pressure Non-Invasive 142 mmHg HI Diastolic Blood Pressure Non-Invasive 81 mmHg Reason For Taking VItal Signs Routine 10/02/2022 18:31 EDT Temperature Oral 36.6 DegC Peripheral Pulse Rate 70 bpm Respiratory Rate 20 br/min Systolic Blood Pressure Non-Invasive 143 mmHg HI Diastolic Blood Pressure Non-Invasive 73 mmHg Reason For Taking VItal Signs Routine 10/02/2022 15:01 EDT Temperature Oral 36.7 DegC Peripheral Pulse Rate 70 bpm Respiratory Rate 18 br/min Systolic Blood Pressure Non-Invasive 126 mmHg Diastolic Blood Pressure Non-Invasive 81 mmHg Reason For Taking VItal Signs Routine 10/02/2022 10:18 EDT Temperature Oral 36.7 DegC Peripheral Pulse Rate 70 bpm Respiratory Rate 20 br/min Systolic Blood Pressure Non-Invasive 115 mmHg Diastolic Blood Pressure Non-Invasive 63 mmHg Blood Pressure Method Automatic Blood Pressure Location Left arm Blood Pressure Cuff Size Medium Reason For Taking VItal Signs Routine 10/02/2022 8:35 EDT Apical Heart Rate 84 bpm 10/02/2022 6:31 EDT Temperature Oral 36.6 DegC Peripheral Pulse Rate 71 bpm Respiratory Rate 20 br/min Systolic Blood Pressure Non-Invasive 145 mmHg HI Diastolic Blood Pressure Non-Invasive 87 mmHg Blood Pressure Method Automatic Blood Pressure Location Left arm Blood Pressure Cuff Size Medium Reason For Taking VItal Signs Routine 10/02/2022 4:01 EDT Temperature Oral 36.5 DegC Peripheral Pulse Rate 70 bpm Respiratory Rate 20 br/min Systolic Blood Pressure Non-Invasive 143 mmHg HI Diastolic Blood Pressure Non-Invasive 92 mmHg HI Blood Pressure Method Automatic Blood Pressure Location Left arm Blood Pressure Cuff Size Medium Reason For Taking VItal Signs Routine . Mental status: at preoperative baseline. Respiratory function: respirations are non-labored. Respiratory support: none. CV function: Normal rate, Regular rhythm. Cardiovascular support: none. Pain: Post op control see nursing medication documentation. Nausea status: denies nausea. Postoperative hydration status: euvolemic. Digitally Signed by JORGE LUIS OROPEZA MD on 10/03/2022 02:50 PM [id number] Surgery Consult note Date of Service 10/02/2022 Reason for Consultation Cellulitis of left neck and shoulder Referring Physician Hospitalist History of Present Illness This is a shared between myself and Dr. Morillo This patient is a 72-year-old female with a past medical history of type 2 diabetes, sick sinus syndrome status pacemaker, atrial fibrillation, chronic hypoxia who was a transfer from for left neck/shoulder cellulitis. Patient positive for gram-positive rods. Infectious disease is following. Patient reports that he noticed the redness to the left side of her neck and shoulder over 2 weeks ago. Patient reports that she noticed some drainage but was unsure from where. Patient denies any nausea, vomiting fever or chills. On evaluation of the patient she is seen resting supine in bed, in no acute distress. The patient does not appear to be toxic. The very large firm indurated nonfluctuant area on the left posterior neck and upper back that is erythematous with small white pustules. No drainage is noted. Review of Systems 10 system review and symptoms were complete, pertinent positives described above and otherwise negative. Physical Exam Vitals and Measurements T: 36.7 C (Oral) TMIN: 36.4 C (Oral) TMAX: 36.7 C (Oral) HR: 70 RR: 20 BP: 115/63 SpO2: 99% Weight Dosing Weight: 99.3 kg (09/30/22) General: Awake and alert and in no apparent distress. Able to answer questions and speak in full sentences. Supine in bed. Sitting upright. HEENT: Mucous membranes moist and pink. Sclerae anicteric. PERRLA. Heart: Regular rate and rhythm. S1-S2 are present. Lungs: Chest rise symmetrical. Respirations unlabored. Clear to auscultation bilaterally. Abdomen: Soft and nontender. Nondistended. No guarding or rigidity. Bowel sounds 4 quadrants. Extremities: Freely moving. Skin: Normal color for ethnicity. No pallor or diaphoresis. No jaundice. The very large firm indurated nonfluctuant area on the left posterior neck and upper back that is erythematous with small white pustules. No drainage is noted. Multiple scabbed lesions on bilateral legs Psychiatric: Calm and cooperative. Lab Results 10/02 07:03 WBC: 13.5 H Hgb: 12.6 Hct: 38.8 Platelet: 190 Neutrophil %: 81.1 H Protime: 34.0 H PT International Ratio: 2.8 Glucose Level: 248 H Sodium Level: 137 Potassium Level: 3.5 BUN: 24.0 H Creatinine Lvl (s): 0.80 10/01 06:44 Protime: 49.1 H PT International Ratio: 4.0 10/01 02:31 WBC: 21.5 H Hgb: 12.9 Hct: 38.9 Platelet: 227 Neutrophil %: 89.2 H Glucose Level: 288 H Sodium Level: 134 L Potassium Level: 3.1 L BUN: 18.0 Creatinine Lvl (s): 0.86 Assessment/Plan This patient is a 72-year-old female with multiple comorbidities who was a transfer from for medical management of her left neck/shoulder cellulitis. Infectious disease is following. General surgery was consulted for possible I&D of left neck/shoulder cellulitis. Vital signs, laboratory data and documentation have all been reviewed. Plan: -Patient to be n.p.o. after midnight. On our evaluation patient had already eaten breakfast and wasdrinking coffee. -Patient to go to the OR with Dr. Morillo for a incision and drainage of left shoulder/neck cellulitis. The patient was understanding and agreement to plan. Thank you for allowing us to participate in the care of this patient. Please see Dr. Morillo's addendum to follow. This document was dictated with voice recognition software and may contain grammatical errors Problem List/Past Medical History Ongoing Anxiety Atrial fibrillation Chest pain Chronic left hip pain Chronic lumbar pain Diabetes mellitus type 2, insulin dependent Diabetic polyneuropathy Dizziness Dyspnea Edema of both lower extremities GERD - Gastro-esophageal reflux disease HTN (hypertension) Hypercholesterolemia MVP (mitral valve prolapse) Nocturnal hypoxia On continuous oral anticoagulation Organic sleep apnea Osteoarthritis of knees, bilateral Pacemaker Rib pain on left side SSS (sick sinus syndrome) Supplemental oxygen dependent Tachy-josé luis syndrome Historical Pneumonia UTI (urinary tract infection) Procedure/Surgical History Cardiac pacemaker: 03/18/21 EKG findin11/13/19 Echocardiogram: 10/29/19 EKG findin10/29/19 Cataract: 09/2019 Cardiac catheterization: 03/09/16 Echocardiogram: 02/13/16 Biopsy of bladder: 01/2016 Cardiovascular stress testin09/08/15 Endoscopy: 02/21/91 Endoscopy: 12/06/88 Endoscopy: 07/22/86 Arm Surgery: 1985 section: 1982 Cholecystectomy Appendectomy Dilation and curettage Hysterectomy Transesophageal echocardiogram Medications Inpatient acetaminophen, 650 mg= 2 tab(s), Oral, q4h, PRN amLODIPine, 5 mg= 1 tab(s), Oral, qDay atorvastatin, 20 mg= 1 tab(s), Oral, qDay clindamycin, 600 mg= 50 mL, IV Piggyback, q6hr Communication PHARMACY Order, 1 EA, Miscellaneous, Daily DAPTOmycin Dilaudid, 0.5 mg= 0.5 mL, IV Push, q2h, PRN Dilaudid, 1 mg= 1 mL, IV Push, q2h, PRN DuoNeb, 3 mL, Inhalation, q4hRT, PRN HumaLOG 100 units/mL injectable solution VIAL, 5 unit(s)= 0.05 mL, Subcutaneous, TIDAC HumaLOG 100 units/mL subcutaneous solution, Give 0-15 units/dose, Subcutaneous, TIDAC Lantus, 15 unit(s)= 0.15 mL, Subcutaneous (INT), BID Lasix, 40 mg= 1 tab(s), Oral, qDay lisinopril, 40 mg= 2 tab(s), Oral, qDay meropenem Metoprolol Tartrate 25 mg oral tablet, 25 mg= 1 tab(s), Oral, Daily Percocet 325/5, 1 tab(s), Oral, q4h, PRN Percocet 325/5, 2 tab(s), Oral, q4h, PRN Pharmacy Consult, 1 EA, Miscellaneous, Daily sotalol 80 mg oral tablet, 80 mg= 1 tab(s), Oral, qHS Vitamin D3 125 mcg (5000 intl units) oral capsule, 125 mcg= 1 cap(s), Oral, qDay Zofran, 4 mg= 2 mL, IV Push, q4h, PRN Home acetaminophen-hydrocodone 325 mg-7.5 mg oral tablet, 1 tab(s), Oral, q6hr, PRN amLODIPine 5 mg oral tablet, 5 mg= 1 tab(s), Oral, qDay, 3 refills atorvastatin 20 mg oral tablet, 20 mg= 1 tab(s), Oral, qDay Blood Glucose Test Machine, See Instructions Blood Glucose Test Strips, See Instructions, 3 refills insulin glargine-yfgn 100 units/mL subcutaneous solution, 20, Subcutaneous, qDay insulin lispro (Humalog) 100 units/mL injectable solution, 5 unit(s), Subcutaneous, TIDAC Lancets, See Instructions, 3 refills Lasix 40 mg oral tablet, 40 mg= 1 tab(s), Oral, qDay, 2 refills lisinopril 40 mg oral tablet, 40 mg= 1 tab(s), Oral, qDay, 3 refills Lopressor 25mg--USE metoprolol tartrate 25 mg oral tablet, 25 mg= 1 tab(s), Daily sotalol 80 mg oral tablet, 80 mg= 1 tab(s), Oral, qHS, 5 refills Vitamin D3 125 mcg (5000 intl units) oral capsule, 125 mcg= 1 cap(s), Oral, qDay warfarin 4 mg oral tablet, 4 mg= 1 tab(s), Oral, qDay warfarin 5 mg oral tablet, 5 mg= 1 tab(s), Oral, qDay, 3 refills Allergies Bystolic (Irregular heart beat) Cardizem (Dizziness) Tenormin (Bradycardia) Zebeta (Unknown) biaxin cipro glucaphage penicillin vancomycin Social History Smoking Status - 11/03/2015 Never smoker Alcohol Use: Never., 10/16/2018 Employment/School Status: Retired., 07/03/2019 Exercise Home/Environment Domestic Concerns: None., 02/23/2019 Nutrition/Health Caffeine intake amount: coffee, 1 serving daily., 10/16/2018 Substance Abuse Use: Never., 10/16/2018 Tobacco Tobacco Use: Former smoker, quit more than 30 days ago., 10/16/2018 Family History Diabetes: Mother and Brother. Heart attack: Mother. Hypertension: Mother, Father and Brother. Stroke: Father. Immunizations SARS-CoV-2 (COVID-19) mRNA-1273 vaccine: 0 unknown unit (05/01/20) tetanus/diphth/pertuss (Tdap) adult/adol: 0.5 unknown unit (05/28/19) Digitally Signed by CYRUS MENDEZ on 10/02/2022 11:56 AM [id number] Infectious disease Progress note Date of Service October 02, 2022 Infectious Disease Attending Note: Antibiotics: D#1 Daptomycin D#1 Clindamycin D#1 Meropenem Problem List:Assessment/Plan 1. Sepsis secondary to left shoulder/neck cellulitis 2. Bacteremia 3. Leukocytosis 4. Type 2 diabetes 5. Sick sinus syndrome status post pacemaker Subjective: Patient clinically unchanged in both symptoms and signs. Patient has few complaints except nauseousand still has pain and tenderness in the back Physical Examination: Pulmonary clear to auscultation Cardiovascular regular rate and rhythm Abdomen soft nontender obese Joints without any inflammation Skin has multiple scabbed lesions all over her legs diffusely Back and neck wound is unchanged from yesterday Laboratory: White Count down to 13.5 Creatinine 0.8 Microbiology: Blood cultures (09/30) 2/2 sets GPC's in clusters molecular shows staph epi Bblood cultures (10/01) 4/4 sets pending Wound culture (10/01) Staph aureus Impression: Back abscess with not surprisingly with Staph aureus If blood cultures truly staph epi probably less likely of metastatic spread and may require a lesser course of intravenous antibiotics Positive blood cultures but appears to be staph epi we will wait for the final identification because I am surprised there is not Staph aureus. Certainly with her diabetes, pacemaker would be worried about metastatic spread and involvement of the pacemaker and possibly the heart or other structures though none evident at present There is no general surgery on the note as of yet but she is been seen I believe and is on the schedule for surgery tomorrow all of which I agree with I think we can discontinue the clindamycin probably could do the meropenem to but I will wait 1 more day waiting for final culture results Patient has a allergy to vancomycin, penicillin, Cipro and Biaxin as well supposedly) so patient presently on daptomycin Digitally Signed by RADHA ALMARAZ MD on 10/02/2022 10:52 AM [id number] Note* Exam Date Time Procedure Performing Provider Status 10/01/22 10:32 PM Echocardiogram, Adult - CV Auth (Verified) [facility] 07-14-2023 Infectious disease Consult note Date of Service 10/01/2022 October 01, 2022 Infectious Disease Attending Note: Impression: Patient with multiple medical problems has a huge indurated area on her neck and upper back which is firmly indurated, nonfluctuant with a MRSE isolated from the blood presently on meropenem and clindamycin. The cellulitis extends from the posterior back mostly on the left anteriorly on the left inthe neck I do not think it involves any area right near the vessels but could be incorrect on that.Apparently there was a CT scan of the neck at [facility] but I have not been able to visualize this With her diabetes and poor control I think the staph epi is probably not a contaminant and way wellbe significant. I do not think this is a necrotizing fasciitis I do not detect any fluctuance or crepitance at the present time and she does not look toxic but her blood sugars are very elevated. Some of this may have been some bleeding into the tissues as well but I think it is infected also especially given her white blood cell count of 21,000 and her blood sugars in the 300s. I recommend serial imaging studies and I would consult surgery. Patient does have a pacemaker and I think there is some risk for seeding of this even with the staph epi. I would add daptomycin (has a vancomycin allergy) and get a general surgery consult I would repeat the CT scan tomorrow I will check a CPK as I would also worry about myositis both bacterial and diabetic Patient tells me she is up-to-date on her tetanus shot and she has a penicillin allergy (clearly she is tolerating the carbapenem)\ Addendum: Patient has a pro time of 49 and an INR of 4.0 the nurses tell me that she is on Coumadinat home--she was on heparin here but has been discontinued Reason for Consultation Left neck/shoulder cellulitis Referring Physician Dr. Coreas History of Present Illness 72-year-old female with past medical history consistent with sick sinus syndrome status post pacemaker, type 2 diabetes, atrial fibrillation, chronic hypoxic respiratory failure presents on 09/30 [facility] for management of left neck/shoulder cellulitis. At , labs showed glucose of 462, white blood cell count of 18.3. CT soft tissue/neck showed cellulitic changes. CTA negative for PE. Started empirically on clindamycin and meropenem. Labs on admission show leukocytosis of 21, 500, sodium 134, lactic 2.2. Chest x-ray shows no focal consolidation or edema. Blood cultures 09/30 2 out of 2 for grampositive cocci in clusters, PCR positive for staph epi. ID consulted for cellulitis of the neck. Patient evaluated at the bedside. History mostly obtained from chart review as patient was extremely confused and lethargic. She states that she lives at home with her son and had recently moved out of the nursing facility. Patient is a poor historian. She states that she has had this redness on her left side of her neck/shoulder for at least 2 to 3 weeks. Noted some drainage on the site but never was assessed anywhere for this. She reports that she was last at the hospital years ago and does not remember much details. Her information was hard to discern as she was pretty confused. Denies injury to the site. She does have multiple lesions on her legs and arms which she states are from bug bites. Denies tick or bedbug exposure. She does live with 2 dogs and 3 cats. Reports that she is a diabetic and takes insulin although I am not sure this is true. Reports that she recently had a pacemaker placed at least 3 years ago and has not had issues with this. Denies nausea, vomiting or diarrhea. Denies shortness of breath or cough. Reports some chills at home but repeatedly says exactly what I say back to her. Denies fever or night sweats. Denies urinary frequency, urgency or dysuria. Reports back/neck pain to the affected area. She has trouble getting around because of this. Denies alcohol, drug or tobacco use. Review of Systems Pertinent positives included within the HPI. Physical Exam Vitals and Measurements T: 36.8 C (Oral) TMIN: 36.6 C (Oral) TMAX: 36.8 C (Oral) HR: 70(Apical) RR: 18 BP: 156/80 SpO2: 95%HT: 170.2 cm WT: 99.3 kg BMI: 34.28 Weight Dosing Weight: 99.3 kg (09/30/22) General: No acute distress. Alert and Appropriate Skin: Rash on her left side of her neck is bright red that is associated with a large hardened lesion on her back/shoulder region that is black with clear fluid draining from the site. HEENT: Head is normocephalic and atraumatic. No lesions. Pupils equal in size. Extraocular movements within normal limits. Nose: No septal deviation. Mouth: Oropharynx mucosa is without lesion. Neck: Supple. No lymphadenopathy, thyromegaly noted. Lungs: Unlabored. Bilaterally clear breath sounds with no crepitation or wheeze. Cardiovascular: Heart is regular rhythm, S1S2, No extra-audible heart tones Abdomen: Abdomen is soft, nontender. Bowel sounds positive all four quadrants. No hepatosplenomegaly noted. Extremities: No clubbing, cyanosis or edema. Peripheral pulses palpable. No calf tenderness. Adequate peripheral circulation. Neurological: The patient is lethargic, answers all orientation questions but confused. Following simple commands, moving all extremities. Lab Results 10/01 06:44 Protime: 49.1 H PT International Ratio: 4.0 10/01 02:31 WBC: 21.5 H Hgb: 12.9 Hct: 38.9 Platelet: 227 Neutrophil %: 89.2 H Glucose Level: 288 H Sodium Level: 134 L Potassium Level: 3.1 L BUN: 18.0 Creatinine Lvl (s): 0.86 Imaging Results and Diagnostics XR Chest 1 View Result Date: October 01, 2022 Verified By: HERMELINDO CUADRA MD CLINICAL STATEMENT: IMPRESSION: Low lung volumes. Otherwise, No focal consolidation or edema. Preliminary Report was Dictated by a Resident XR Chest 1 View Result Date: October 01, 2022 Verified By: CLINICAL STATEMENT: IMPRESSION: No focal consolidation or edema, low lung volumes. Assessment/Plan 1. Sepsis secondary to left shoulder/neck cellulitis 2. Bacteremia 3. Leukocytosis 4. Type 2 diabetes 5. Sick sinus syndrome status post pacemaker 72-year-old female with past medical history consistent with sick sinus syndrome status post pacemaker, type 2 diabetes, atrial fibrillation, chronic hypoxic respiratory failure presents on 09/30 [facility] for management of left neck/shoulder cellulitis. ID following for the same in addition to bacteremia. Sepsis secondary to left shoulder/neck cellulitis, chart and imaging reviewed. CT of the neck reviewed from shows cellulitic changes. May benefit from further imaging to assess if there is evidence of abscess formation. Wound culture so far growing gram-positive rods. Bacteremia, blood cultures 09/30 2 out of 2 growing gram-positive cocci in clusters. We will repeat blood cultures and monitor further growth. Highly concerned as the patient does have a pacemaker in place. Will most likely need an echocardiogram. Laboratory data reviewed, patient has leukocytosis of 21.5 and remains afebrile. Lactic acidosis of2.2 noted with sodium at 134. She certainly looks toxic and unsure if her altered mental status is at her baseline. According to the leather case finisher note, patient has a history of bipolar disorder and has stopped taking her psychiatric medications which could realistically cause her confusion. She was started empirically on meropenem and clindamycin. We will likely transition this to vancomycin and Zosyn for broad-spectrum coverage. We will recommend MRI of the head/neck to rule out abscess. Order echocardiogram to assess for bacteremia or endocarditis. This is a shared/split visit with my collaborating physician Dr. Almaraz, please refer to his impression. Problem List/Past Medical History Ongoing Anxiety Atrial fibrillation Chest pain Chronic left hip pain Chronic lumbar pain Diabetes mellitus type 2, insulin dependent Diabetic polyneuropathy Dizziness Dyspnea Edema of both lower extremities GERD - Gastro-esophageal reflux disease HTN (hypertension) Hypercholesterolemia MVP (mitral valve prolapse) Nocturnal hypoxia On continuous oral anticoagulation Organic sleep apnea Osteoarthritis of knees, bilateral Pacemaker Rib pain on left side SSS (sick sinus syndrome) Supplemental oxygen dependent Tachy-josé luis syndrome Historical Pneumonia UTI (urinary tract infection) Procedure/Surgical History Cardiac pacemaker: 03/18/21 EKG findin11/13/19 Echocardiogram: 10/29/19 EKG findin10/29/19 Cataract: 09/2019 Cardiac catheterization: 03/09/16 Echocardiogram: 02/13/16 Biopsy of bladder: 01/2016 Cardiovascular stress testin09/08/15 Endoscopy: 02/21/91 Endoscopy: 12/06/88 Endoscopy: 07/22/86 Arm Surgery: 1985 section: 1982 Cholecystectomy Appendectomy Dilation and curettage Hysterectomy Transesophageal echocardiogram Medications Inpatient amLODIPine, 5 mg= 1 tab(s), Oral, qDay atorvastatin, 20 mg= 1 tab(s), Oral, qDay clindamycin, 600 mg= 50 mL, IV Piggyback, q12h Dilaudid, 0.5 mg= 0.5 mL, IV Push, q2h, PRN Dilaudid, 1 mg= 1 mL, IV Push, q2h, PRN DuoNeb, 3 mL, Inhalation, q4hRT, PRN heparin 5000 units/mL injection, 5000 unit(s)= 1 mL, Subcutaneous, q8h HumaLOG 100 units/mL injectable solution VIAL, 5 unit(s)= 0.05 mL, Subcutaneous, TIDAC Lantus, 20 unit(s)= 0.2 mL, Subcutaneous (INT), qDay Lasix, 40 mg= 1 tab(s), Oral, qDay lisinopril, 40 mg= 2 tab(s), Oral, qDay meropenem Metoprolol Tartrate 25 mg oral tablet, 25 mg= 1 tab(s), Oral, Daily sotalol 80 mg oral tablet, 80 mg= 1 tab(s), Oral, qHS Tylenol, 650 mg= 2 tab(s), Oral, q4h, PRN Vitamin D3 125 mcg (5000 intl units) oral capsule, 125 mcg= 1 cap(s), Oral, qDay warfarin, 4 mg= 2 tab(s), Oral, qDay warfarin, 5 mg= 1 tab(s), Oral, qDay Zofran, 4 mg= 2 mL, IV Push, q4h, PRN Home acetaminophen-hydrocodone 325 mg-7.5 mg oral tablet, 1 tab(s), Oral, q6hr, PRN amLODIPine 5 mg oral tablet, 5 mg= 1 tab(s), Oral, qDay, 3 refills atorvastatin 20 mg oral tablet, 20 mg= 1 tab(s), Oral, qDay Blood Glucose Test Machine, See Instructions Blood Glucose Test Strips, See Instructions, 3 refills insulin glargine-yfgn 100 units/mL subcutaneous solution, 20, Subcutaneous, qDay insulin lispro (Humalog) 100 units/mL injectable solution, 5 unit(s), Subcutaneous, TIDAC Lancets, See Instructions, 3 refills Lasix 40 mg oral tablet, 40 mg= 1 tab(s), Oral, qDay, 2 refills lisinopril 40 mg oral tablet, 40 mg= 1 tab(s), Oral, qDay, 3 refills Lopressor 25mg--USE metoprolol tartrate 25 mg oral tablet, 25 mg= 1 tab(s), Daily sotalol 80 mg oral tablet, 80 mg= 1 tab(s), Oral, qHS, 5 refills Vitamin D3 125 mcg (5000 intl units) oral capsule, 125 mcg= 1 cap(s), Oral, qDay warfarin 4 mg oral tablet, 4 mg= 1 tab(s), Oral, qDay warfarin 5 mg oral tablet, 5 mg= 1 tab(s), Oral, qDay, 3 refills Allergies Bystolic (Irregular heart beat) Cardizem (Dizziness) Tenormin (Bradycardia) Zebeta (Unknown) biaxin cipro glucaphage penicillin vancomycin Social History Smoking Status - 11/03/2015 Never smoker Alcohol Use: Never., 10/16/2018 Employment/School Status: Retired., 07/03/2019 Exercise Home/Environment Domestic Concerns: None., 02/23/2019 Nutrition/Health Caffeine intake amount: coffee, 1 serving daily., 10/16/2018 Substance Abuse Use: Never., 10/16/2018 Tobacco Tobacco Use: Former smoker, quit more than 30 days ago., 10/16/2018 Family History Diabetes: Mother and Brother. Heart attack: Mother. Hypertension: Mother, Father and Brother. Stroke: Father. Immunizations SARS-CoV-2 (COVID-19) mRNA-1273 vaccine: 0 unknown unit (05/01/20) tetanus/diphth/pertuss (Tdap) adult/adol: 0.5 unknown unit (05/28/19) Digitally Signed by MOLLY SHERMAN on 10/01/2022 02:34 PM Digitally Signed by RADHA ALMARAZ MD on 10/01/2022 05:49 PM Digitally Signed by RADHA ALMARAZ MD on 10/01/2022 05:52 PM Digitally Signed by RADHA ALMARAZ MD on 10/01/2022 06:02 PM [id number] Note ORIGINAL EXAMINATION: ONE XRAY VIEW OF THE CHEST 10/01/2022 6:17 am COMPARISON: 09/09/2022. HISTORY: ORDERING SYSTEM PROVIDED HISTORY: Reason for Exam: SOB FINDINGS: Cardiac conduction device projects over the left chest wall with intact leads. Stable cardiomediastinal silhouette. No large volume pleural effusion or pneumothorax. No focal consolidation. Decreased lung volumes with associated hypoventilatory changes. Degenerative changes of the spine and partially visualized vertebral body augmentation.. IMPRESSION: Low lung volumes. Otherwise, No focal consolidation or edema. Preliminary Report was Dictated by a Resident Interpreted by: Hermelindo Cuadra MD Preliminary Report By: Jorge Luis Hernandez Electronically signed By Hermelindo Cuadra MD Dictated Date: 10/01/2022 6:38:25 AM Prelim Date: 10/01/2022 6:40:26 AM Sign Date: 10/01/2022 9:37:25 AM Ordering Provider: CORINA [facility]07-14-2023 NoteAfib/flut and V- paced complexes Electronic Signature: FRAN STEEN MD 10/01/2022 17:59:48[facility] 07-13-2023 History and physical note Date of Service 09/30/2022 Chief Complaint Cellullitis History of Present Illness 72 yo F w/a PMH consistent with SSS s/p PPM, T2DM, AF, 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 Patient is a poor historian and does not know how long this has been going on with her neck. Attempts were made to contact family on file and new answer. She does state that she is poorly compliant with her insulin. Was recently admitted to for PNA in August 2022. In : CMP with Glu of 462 (repeat 301), sCr: 1.23, CBC with WBC of 18.3, BNP was 4200. CT Soft Tissue Neck did demonstrate cellulitic changes. CT PE negative for pulmonary embolism, or pneumonia. Given IV Clindamycin and Meropenem. Repeat CXR pending on floor. On the floor, patient somnolent but arousable. Denies CP, SOB, NVD. States she wears 2L NC at home for SONG. Vital signs stable. No new issues or complaints. Review of Systems Complete detailed review of systems obtained and all pertinent positives and negatives are noted inthe history of present illness. Physical Exam Vitals and Measurements T: 36.6 C (Oral) HR: 82(Apical) RR: 18 BP: 177/81 SpO2: 92% HT: 170.2 cm WT: 99.3 kg BMI: 34.28 Weight Dosing Weight: 99.3 kg (09/30/22) Physical Examination General: No apparent distress. Alert and appropriate. HEENT: NCAT EOMI Neck: Supple. No appreciable elevation in JVP. Cardiovascular: S1 S2 normal. No extra-audible heart tones. Respiratory: Bilaterally clear breath sounds with no crepitation or wheeze. Abdominal: Soft, nontender and nonrigid. No guarding. Bowel sounds present. Extremities: No edema. Adequate peripheral circulation. Neurological: Grossly intact without focal deficit. Cerebellar function preserved. Skin: Cellulitic changes left posterior neck. Excoriations scattered throughout arm and legs. Lab Results No 36 Hour Lab Data Imaging Results and Diagnostics CT Soft Tissue: stranding of superficial and deep sc fat of the left posterolateral neck CT PE: no PE noted, no evidence of PNA Reviewed EKG Ordered, pending Assessment/Plan Left shoulder/neck cellulitis Sepsis 2/2 above T2DM with Hyperglycemia AF on Coumadin SSS s/p PPM HTN SONG -Admit patient for IV Clindamycin and Meropenem. Wound culture pending. ID consultation ordered. - Repeat LA, hold off on fluids for now given elevated BNP - CXR ordered to assess for pulmonary edema - Continue Coumadin in setting of AF and s/p PPM for SSS - Continue home insulin regimen in setting of T2DM, will give an additional 6 units of NPH now - Continue Amlodipine and Lisinopril in the setting of HTN - Maintain 2L NC qHS and during daytime naps for SONG - daily CBC and BMP and replete electrolytes PRN - IV dilaudid PRN and IV Zofran PRN for pain and nausea control Problem List/Past Medical History Ongoing Anxiety Atrial fibrillation Chest pain Chronic left hip pain Chronic lumbar pain Diabetes mellitus type 2, insulin dependent Diabetic polyneuropathy Dizziness Dyspnea Edema of both lower extremities GERD - Gastro-esophageal reflux disease HTN (hypertension) Hypercholesterolemia MVP (mitral valve prolapse) Nocturnal hypoxia On continuous oral anticoagulation Organic sleep apnea Osteoarthritis of knees, bilateral Pacemaker Rib pain on left side SSS (sick sinus syndrome) Supplemental oxygen dependent Tachy-josé luis syndrome Historical Pneumonia UTI (urinary tract infection) Procedure/Surgical History Cardiac pacemaker: 03/18/21 EKG findin11/13/19 Echocardiogram: 10/29/19 EKG findin10/29/19 Cataract: 09/2019 Cardiac catheterization: 03/09/16 Echocardiogram: 02/13/16 Biopsy of bladder: 01/2016 Cardiovascular stress testin09/08/15 Endoscopy: 02/21/91 Endoscopy: 12/06/88 Endoscopy: 07/22/86 Arm Surgery: 1985 section: 1982 Cholecystectomy Appendectomy Dilation and curettage Hysterectomy Transesophageal echocardiogram Medications Home Medications (15) Active acetaminophen-hydrocodone 325 mg-7.5 mg oral tablet 1 tab(s), PRN, Oral, q6hr amLODIPine 5 mg oral tablet 5 mg = 1 tab(s), Oral, qDay atorvastatin 20 mg oral tablet 20 mg = 1 tab(s), Oral, qDay Blood Glucose Test Machine See Instructions Blood Glucose Test Strips See Instructions insulin glargine-yfgn 100 units/mL subcutaneous solution 20, Subcutaneous, qDay insulin lispro (Humalog) 100 units/mL injectable solution 5 unit(s), Subcutaneous, TIDAC Lancets See Instructions Lasix 40 mg oral tablet 40 mg = 1 tab(s), Oral, qDay lisinopril 40 mg oral tablet 40 mg = 1 tab(s), Oral, qDay Lopressor 25mg--USE metoprolol tartrate 25 mg oral tablet 25 mg = 1 tab(s), Daily sotalol 80 mg oral tablet 80 mg = 1 tab(s), Oral, qHS Vitamin D3 125 mcg (5000 intl units) oral capsule 125 mcg = 1 cap(s), Oral, qDay warfarin 4 mg oral tablet 4 mg = 1 tab(s), Oral, qDay warfarin 5 mg oral tablet 5 mg = 1 tab(s), Oral, qDay Allergies Bystolic (Irregular heart beat) Cardizem (Dizziness) Tenormin (Bradycardia) Zebeta (Unknown) biaxin cipro glucaphage penicillin vancomycin Social History Smoking Status - 11/03/2015 Never smoker Alcohol Use: Never., 10/16/2018 Employment/School Status: Retired., 07/03/2019 Exercise Home/Environment Domestic Concerns: None., 02/23/2019 Nutrition/Health Caffeine intake amount: coffee, 1 serving daily., 10/16/2018 Substance Abuse Use: Never., 10/16/2018 Tobacco Tobacco Use: Former smoker, quit more than 30 days ago., 10/16/2018 Family History Diabetes: Mother and Brother. Heart attack: Mother. Hypertension: Mother, Father and Brother. Stroke: Father. Immunizations SARS-CoV-2 (COVID-19) mRNA-1273 vaccine: 0 unknown unit (05/01/20) tetanus/diphth/pertuss (Tdap) adult/adol: 0.5 unknown unit (05/28/19) Code Status Code Status - Ordered -- 09/30/22 22:41:00 EDT, Full Code, Constant Order Digitally Signed by CORINA HASSAN DO on 09/30/2022 11:48 PM [id number] Evaluation + Plan noteExtracted from: Title:History and Physical Author:CORINA HASSAN Date:09/30/22 Left shoulder/neck celluliti s Sepsis 2/2 above T2DM with Hyperglycemia AF on Coumadin SSS s/p PPM HTN SONG -Admit patient for IV Clindamycin and Meropenem. Wound culture pending. ID consultation ordered. - Repeat LA, hold off on fluids for now given elevated BNP - CXR ordered to assess for pulmonary edema - Continue Coumadin in setting of AF and s/p PPM for SSS - Continue home insulin regimen in setting of T2DM, will give an additional 6 units of NPH now - Continue Amlodipine and Lisinopril in the setting of HTN - Maintain 2L NC qHS and during daytime naps for SONG - daily CBC and BMP and replete electrolytes PRN - IV dilaudid PRN and IV Zofran PRN for pain and nausea control Future Appointments Appointment Date:10/21/2022 09:15:00 AM Scheduled Provider:GISELLE BURNETT DO Location:[facility] 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 Call your pacemaker doctor s office immediately if you have: oIncreased redness oDrainage from the incision oIncreased pain, warmth or swelling on or around the site oFever or chills that you cannot connect with a cold or flu If an Aquacel Ag surgical dressing has been applied: oYou may take a shower as long as the dressing is sealed well to your skin. oYou may remove the bandage in 7 days: To do this, press down on your skin with one hand and carefully lift an edge of the bandage with your other hand. Stretch the dressing to break the adhesive seal and gently pull it off. oIf the bandage becomes loose or falls off in less than 5 days, you will not be able to take any showers or baths. ?You must keep the incision dry for the first 5 days after your procedure. ?DO NOT clean the incision with any soap, water, peroxide or alcohol. ?Leave it dry and uncovered for 5 days, then you may shower using soap and water. oWear loose fitting clothes over the incisional site to avoid irritation until it is healed. If you do not have a dressing: oDO NOT shower or get the incision wet for 5 days. oDO NOT clean the incision with any soap, water, peroxide or alcohol. oLeave it dry and uncovered for 5 days, then you may shower using soap and water. oWear loose fitting clothes over the incisional site to avoid irritation until it is healed. MEDICATIONS Take antibiotics as prescribed by your physician (if prescribed) Take medications as directed until prescription is finished Avoid alcohol while taking medications You may take Tylenol (acetaminophen) for incisional pain or discomfort. ACTIVITY RESTRICTIONS DO NOT lift anything heavier than 5 lbs with the arm on the side of the Pacemaker for one month. DO NOT raise the arm on the side of the Pacemaker above shoulder level for one month. You may resume normal driving after a day unless otherwise restricted. Driving may cause soreness at the incision site. FOLLOW UP Follow up with the Pacemaker center for routine evaluation of your device. Your appointment to haveyour device checked and to see the doctor in 12-14 weeks has been scheduled and is listed above in the follow up section of these discharge instructions. Device Monitor Now that you have a permanent pacemaker, ICD, and/or loop recorder (all called a device ) it shouldbe checked regularly. This is done with a monitor that sends information from the device to your community planner (heart doctor) office. How will I get my monitor? The monitor will be shipped to your home within 6 weeks after you are discharged. But, if you are given the monitor before discharge, please take it home. You may get other equipment (such as a bloodpressure cuff and weight scale) shipped as well. There is no charge for this equipment. How does the monitor work? The monitor needs to be set up close to where you sleep. The monitor will automatically grain picker heart signals and send the information to your doctor. Or you may be asked to push a button to send theinformation. What are the next steps? You will have an appointment with the nurse at the Device Clinic in about 2 weeks and the nurse will check your device (you will not see your doctor). The nurses will talk to you about the monitor atthat time. When you get the monitor, there will be clear instructions with how to set it up. Please call the Device Clinic if you have questions. [facility]: [phone] Ask for the Device Clinic or santiago-in extension [phone] when prompted. Device Clinic Location: [facility] (not the physician office building). Enter the [facility] and take the elevators to the 2nd floor. Take the wright to the slight left labeled [facility] . If you are interested, you may find information about your device on the web, including videos thatwill help you understand and set up your monitor. The monitor you will get is based on the company that manufactured your device. Your device card will tell you the kindergarten teacher assistant. Using the search box: [employer]: [employer] Communicator quick start oPatient Help: [employer]: [facility] quick start oPatient Help: [facility] (An): [email or web address] quick start oPatient Help: Other important information about your device: Always carry your device card with you. Your device may set off a metal detector. Be sure you have your device card with you if you plan togo through any area, such as an airport that may have a metal detector. Before having any test or procedure, make sure you tell the healthcare professional that you have an implanted device. Follow Up Care 03/05/2021 15:37:14 With:AUBREY HAMLIN MD Address: [address] [place] [address]- [phone] When:04/02/2021 14:00:00 Comments:This is your incision check in the Device Clinic. With:AUBREY HAMLIN MD Address: [address] [place] [address]- [phone] When:06/22/2021 11:00:00 Comments:This is your hospital follow up in the Device Clinic. [facility] 10-28-2021 Hospital Discharge instructions Patient Education 01/15/2021 15:10:23 Transesophageal Echocardiogram, Wxau-[id number]-[id number] Transesophageal Echocardiogram Transesophageal echocardiogram (VICTOR MANUEL) is a test that uses sound waves to take pictures of your heart. VICTOR MANUEL is done by passing a flexible tube down the esophagus. The esophagus is the tube that carries food from the throat to the stomach. The pictures give detailed images of your heart. This can help your doctor see if there are problems with your heart. What happens before the procedure? Staying hydrated Follow instructions from your doctor about hydration, which may include: Up to 3 hours before the procedure you may continue to drink clear liquids, such as: ?Water. ?Clear fruit juice. ?Black coffee. ?Plain tea. Eating and drinking Follow instructions from your doctor about eating and drinking, which may include: 8 hours before the procedure stop eating heavy meals or foods such as meat, fried foods, or fatty foods. 6 hours before the procedure stop eating light meals or foods, such as toast or cereal. 6 hours before the procedure stop drinking milk or drinks that contain milk. 3 hours before the procedure stop drinking clear liquids. General instructions You will need to take out any dentures or retainers. Plan to have someone take you home from the hospital or clinic. If you will be going home right after the procedure, plan to have someone with you for 24 hours. Ask your doctor about: ?Changing or stopping your normal medicines. This is important if you take diabetes medicines or blood thinners. ?Taking hsye-oen-qlbumul medicines, vitamins, herbs, and supplements. ?Taking medicines such as aspirin and ibuprofen. These medicines can thin your blood. Do not take these medicines unless your doctor tells you to take them. What happens during the procedure? To lower your risk of infection, your doctors will wash or clean their hands. An IV will be put into one of your veins. You will be given a medicine to help you relax (sedative). A medicine may be sprayed or gargled. This numbs the back of your throat. Your blood pressure, heart rate, and breathing will be watched. You may be asked to lay on your left side. A bite block will be placed in your mouth. This keeps you from biting the tube. The tip of the VICTOR MANUEL probe will be placed into the back of your mouth. You will be asked to swallow. Your doctor will take pictures of your heart. The probe and bite block will be taken out. The procedure may vary among doctors and hospitals. What happens after the procedure? Your blood pressure, heart rate, breathing rate, and blood oxygen level will be watched until the medicines you were given have worn off. When you first wake up, your throat may feel sore and numb. This will get better over time. You will not be allowed to eat or drink until the numbness has gone away. Do not drive for 24 hours if you were given a medicine to help you relax. Summary VICTOR MANUEL is a test that uses sound waves to take pictures of your heart. You will be given a medicine to help you relax. Do not drive for 24 hours if you were given a medicine to help you relax. This information is not intended to replace advice given to you by your health care provider. Make sure you discuss any questions you have with your health care provider. Document Released: 01/02/2010 Document Revised: 11/24/2018 Document Reviewed: 06/08/2017 [employer] Patient Education 2020 [employer] 01/15/2021 15:10:12 3- Cardioversion (12/2017)(CUSTOM) CARDIOVERSION Discharge instructions ACTIVITY/SAFETY Please refrain from the following activities for 24 hours: Do not drive a car or operate heavy equipment. Do not consume alcohol for 24 hours. Do not return to work for 24 hours. Postpone signing any important papers or making important decisions. COMFORT Call your primary doctor if you have any redness, tenderness, warmth, discharge or swelling at yourIV site. Your chest or back may get red and/or develop a burning sensation. Apply fragrance-free Aloe Vera lotion. Take Tylenol as needed for pain. DIET When you return home, resume your regular diet unless otherwise directed. Some of the sedatives, anesthetic medications you received today may make you nauseated. If vomiting persists, call your doctor. Restart your usual medications unless otherwise instructed by your doctor. If you have any questions, please call your doctor at the number listed on your follow up instructions. Document Released: 03/07/2006 Document Revised: 02/21/2013 Document Reviewed: 03/08/2014 [employer] Patient Information 2015 [employer]. This information is not intended to replace advicegiven to you by your health care provider. Make sure you discuss any questions you have with your health care provider. 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 Appointment Type:CV OV Incision Check Appointment Date:06/22/2021 11:00:00 AM Scheduled Provider: Location:[facility] Appointment Type:CV Office Procedure ICD Appointment Date:09/24/2021 01:00:00 PM Scheduled Provider: Location:[facility] Appointment Type:CV Remote Procedure HM Future Scheduled Tests Laboratory* Basic Metabolic Panel 04/18/20 * Prothrombin Time - Panel 01/01/21 * Prothrombin Time - Panel 09/11/20 Radiology* NM Myocardial Spect Rest/Stress 04/18/20 [facility] Evaluation + Plan note Future Appointments Appointment Date:09/20/2022 03:00:00 PM Scheduled Provider: Location:[facility] Appointment Type:CV Office Procedure PPM Appointment Date:10/06/2022 02:30:00 PM Scheduled Provider:BATSHEVA FOX DO Location:[facility] Appointment Type:PC OV Follow Up [facility] Evaluation + Plan note Future Appointments Appointment Date:06/21/2024 03:00:00 PM Scheduled Provider: Location:[facility] Appointment Type:CV Office Procedure PPM Appointment Date:06/21/2024 03:15:00 PM Scheduled Provider:LIAM HAMLIN Location:[facility] Appointment Type:CV OV Appointment Date:10/01/2024 03:15:00 PM Scheduled Provider: Location:[facility] Appointment Type:CV Remote Procedure HM Appointment Date:12/31/2024 03:45:00 PM Scheduled Provider: Location:[facility] Appointment Type:CV Remote Procedure HM Future Scheduled Tests Laboratory* Lipid Profile 01/18/24 * Albumin/Creatinine Ratio, Random Urine 01/18/24 * Complete Metabolic Panel 01/18/24 [facility] Evaluation noteNo assessment information available [facility] Work Phone: Hospital course Narrative No data available for this section [facility] Hospital Discharge instructions No data available for this section [facility] Progress note No data available for this section [facility] Reason for referral (narrative)No reason for referral information [facility] Work Phone: Summary Purpose Family History No Family History Records Found Relationship Condition Age at Onset Recorded Date/T thaddeus Unknown Family History?No pe rtinent history Unknown October 29, 2019 9:18pm Advance Directives No Advanced Directives Records FoundDocuments on File Type Date Recorded 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 Advance Directives and Livin g Will 07/23/2010 7:08 PM NO AD Power of Toll 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 Clerk Latest Code Status on File Code Status Date Activated Date Inactivated Comments Full Code 07/23/2010 6:11 PM 07/25/2010 4:24 PM Advance Directive Response Recorded Date/ Time Advance Directives No January 27, 2016 3:47pm Assessments Diagnosis Bipolar 2 disorder (HCC) Other bipolar disorders Chief Complaint and Reason for Visit Chief Complaint Admit Date wound August 20, 2024 1:03p m Additional Source Comments INFORMATION SOURCE (unrecogn ized section and content) DATE CREATED AUTHOR 09/14/2017 [facility] DATE CREATED AUTHOR AUTHOR'S ORGANIZ ATION 04/03/2023 [facility] DATE CREATED AUTHOR AUTHOR'S ORGANIZ ATION 05/06/2023 [facility] DATE CREATED AUTHOR AUTHOR'S ORGANIZ ATION 07/03/2023 [facility] ([place]) DATE CREATED AUTHOR AUTHOR'S ORGANIZ ATION 05/14/2024 [facility] DATE CREATED AUTHOR AUTHOR'S ORGANIZ ATION 08/19/2024 [facility] DATE CREATED AUTHOR AUTHOR'S ORGANIZ ATION 10/17/2024 [facility] DATE CREATED AUTHOR AUTHOR'S ORGANIZ ATION 10/21/2024 [facility] Reason for Visit (unrecogniz ed section and content) Reason Comments Medication Refill Patient Care team informatio n (unrecognized section and content) Team Status: Active Member Role/Relationship Status Dates Dr. Batsheva Fox DO Primary Care Provider Active Team Status: Inactive Member Role/Relationship Status Dates Dr. Batsheva Fox DO Primary Care Provider Active Start: August 20, 2024 End: September 17, 2024 Dr. Batsheva Fox DO Referring Provider Active Start: August 20, 2024 End: September 17, 2024 Dr. Batsheva Oviedo MD Attending Provider Active Start: August 20, 2024 End: September 17, 2024 Goals (unrecognized section and content) Goals may be documented in a n alternate section FOR RECORDS PERTAINING TO PATIENTS WHO ARE OR HAVE BEEN ENROLLED IN A CHEMICAL DEPENDENCY/SUBSTANCEABUSE PROGRAM, SOME INFORMATION MAY BE OMITTED. This clinical summary was aggregated from multiple sources. Caution should be exercised in using it in the provision of clinical care. This summary normalizes information from multiple sources, and as a consequence, information in this document may materially change the coding, format and clinical context of patient data. In addition, data may be omitted in some cases. CLINICAL DECISIONS SHOULD BE BASED ON THE PRIMARY CLINICAL RECORDS. [facility] [employer] provides no warranty or guarantee of the accuracy or completeness of information in this document.
[2024-10-24] MEDS: 0.9% Normal Saline (500mL Bag) 500 ML 999 ML IV (01:39)
[2024-10-24 01:40] VITALS: PULSE 79; RESP 12; O2SAT 78
[2024-10-24 01:43] VITALS: PULSE 78; RESP 16; O2SAT 85
[2024-10-24 01:46] LABS: Hematocrit 46.8 % (37-47); Hemoglobin 14.7 g/dL (12.0-15.0); Immature Granulocytes Count 0.040 X10^3/uL (0.0-0.0); Mean Corp Hgb Conc 31.4 g/dL (32-36); Mean Corpuscular Volume 74.9 fL (81-99); Mean Platelet Vol. 10.1 fl (6.2-12.0); NRBC Flagged by Analyzer 0 % (0-5); POSITIVE MORPHOLOGY YES; Platelet Count 271 K/mm3 (150-450); RBC Distribution Width CV 21.2 % (11.6-14.6); RBC Distribution Width SD 53.5 fl (35.1-43.9); Red Blood Count 6.25 M/mm3 (4.2-5.4); White Blood Count 9.5 K/mm3 (4.4-11.0)
[2024-10-24 01:47] VITALS: PULSE 71; RESP 16; O2SAT 98
[2024-10-24 02:13] LABS: Differential Indicated SCAN CRITERIA MET
[2024-10-24 02:22] LABS: Lipase 19 U/L (13-75); Magnesium 2.5 mg/dL (1.5-2.2)
[2024-10-24 02:43] LABS: AST(SGOT) 29 U/L (<=31); Alanine Aminotransfer ALT/SGPT 13 U/L (<=34); Albumin, Serum 3.1 g/dL (3.4-4.8); Alkaline Phosphatase 136 U/L (35-104); Anion Gap 13 (5-15); BUN 11 mg/dL (4-19); BUN/Creat Ratio 10.3 RATIO (10-20); Bilirubin, Direct 0.49 mg/dL (0.00-0.30); Calcium,Total 9.1 mg/dL (7.6-11.0); Carbon Dioxide 24.2 mmol/L (21.0-32.0); Chloride 100 mmol/L (98-108); Estimated Creatinine Clearance 57.11 ml/min (50-250); Globulin 4.4 g/dL (2.2-4.2); Glucose 139 mg/dL (70-99); Potassium 3.2 mmol/L (3.3-5.1)
[2024-10-24 02:44] LABS: Differential Comment SCANNED
[2024-10-24 02:45] LABS: Anisocytosis 1+; Microcytosis 1+; Target Cells RARE
[2024-10-24 03:00] VITALS: BP 166/67; PULSE 81; RESP 16; O2SAT 98
--- NOTE | 2024-10-24 03:49 | EDS_ITS ---
HPI History of Present Illness Chief Complaint: Constipation Informant: patient, EMS and SNF Narrative Narrative: Patient is a 74-year-old female with past medical history of anxiety and depression as well as physical debility. She also has a history of insulin-d ependent type 2 diabetes and paroxysmal atrial fibrillation. She states that she typically has a bowel movement daily but has not had one for the past 2 or 3 days. This evening she began with bouts of nausea and vomiting. She states that she has not had a fever or chills or any known sick contact exposure. However with her worsening symptoms she presents for evaluation [facility] Medical History (Updated 10/24/24 @ 07:[address] Lang Parekh, DO) Generalized muscle weakness Lymphedema GERD (gastroesophageal reflux disease) Anxiety Depression Hypokalemia Systolic heart failure CKD (chronic kidney disease) Acute kidney failure Dependence on supplemental oxygen Obstructive sleep apnea Atrial fibrillation Type 2 diabetes mellitus Home Medications ?Medication ?Instructions ?Recorded ?Last Taken ?Type hydrocodone-acetaminophen 5-325mg 1 tab PO TID PRN PRN Pain 11/02/13 Unknown History 5mg-325mg pravastatin 40 mg tablet 80 mg PO DAILY cholesterol 0 11/02/13 Unknown History amlodipine 10 mg tablet 10 mg PO DAILY #30 tabs 10/19 04/09 Unknown Rx aspirin 81 mg tablet,delayed 81 mg PO DAILY ##1 Unknown Rx release fluoxetine 20 mg capsule 60 mg (3 x 20 mg) PO DAILY m ental 10/30/19 Unknown Rx health #1 cap insulin aspar prot-insulin aspart 40 units subcut MARY YCM diabetes 10/30/19 Unknown History 100 unit/mL (70-30) subcutaneous pen lisinopril 20 mg tablet 40 mg (2 x 20 mg) PO DAILY # 1 TAB 10/30/19 Unknown Rx lisinopril 20 mg tablet 40 mg (2 x 20 mg) PO DAILY b lood 10/30/19 Unknown Rx pressure #1 TAB loperamide 2 mg capsule 2 mg PO Q4H PRN PRN Loose St ools 10/30/19 Unknown His tory meloxicam 7.5 mg tablet 7.5 mg PO DAILY PRN pain 02/07 Unknown History turmeric 450 mg-turmeric root 500 mg PO DAILY suppleme nt 10/30/19 Unknown History extract 50 mg capsule docusate sodium 100 mg capsule 100 mg PO BID 10 days # 20 caps 10/24/24 Unknown Rx (Colace) ondansetron 4 mg disintegrating 4 mg PO TID PRN nausea and 10/24/24 Unknown Rx tablet vomiting #21 tabs polyethylene glycol 3350 17 17 g PO DAILY 30 days #510 grams 10/24/24 Unknown Rx gram/dose oral powder (Miralax) Allergy/AdvReac Type Severity Reaction Status Date / Time bisoprolol (From Zebeta) Allergy Unknown PT UNSURE Verified 10/24/24 00:55 OF REACTION nebivolol (From Bystolic) Allergy Unknown PT UNSURE Verified 10/24/24 00:55 OF REACTION amoxicillin (Amoxicillin) Allergy Hives Verified 10/24/24 00:55 Beta-Blockers Allergy STOPS MY Verified 10/24/24 00:55 (Beta-Adrenergic Bloc HEART ciprofloxacin Allergy Hives Verified 10/24/24 00:55 clarithromycin (From Biaxin) Allergy Hives Verified 10/24/24 00:55 metformin HCl (From Allergy Anaphylaxis Verified 10/24/24 00:55 Glucophage) Penicillins Allergy Hives Verified 10/24/24 00:55 vancomycin Allergy Hives Verified 10/24/24 00:55 Family History no significant family his Social History Smoking Status: Former smoker ROS ROS ED Constitutional Constitutional ED: Denies chills or fever(s) ENT ENT ED: Denies sore throat Cardiovascular Cardiovascular: Denies chest pain Respiratory/Chest Respiratory/Chest: Denies cough or dyspnea Gastrointestinal Gastrointestinal: Reports abdominal pain, constipation, nausea and vomiting; Denies diarrhea Genitourinary Genitourinary ED: Denies dysuria Musculoskeletal Musculoskeletal: Reports back pain; Denies myalgias Integumentary Denies Abrasions or rash Neurologic Neurologic: Denies headache(s) Psychiatric Psychiatric: Reports anxiety and depression Hematologic/Lymphatic Hematologic/Lymphatic: Denies easy bleeding or easy bruising EXAM Physical Exam Const Vital Signs: 10/24/24 00:55 10/24/24 01:40 10/24/24 01:43 Temperature 97.8 F Temperature Source Oral Pulse Rate 71 79 78 Respiratory Rate 16 12 16 Blood Pressure 208/83 H Blood Pressure Mean 124 Pulse Ox 98 78 85 Oxygen Delivery Method Room Air Room Air Nasal Cannula Oxygen Flow Rate (L/min) 2 10/24/24 01:47 10/24/24 03:00 10/24/24 03:52 Temperature 97.9 F Temperature Source Pulse Rate 71 81 72 Respiratory Rate 16 16 16 Blood Pressure 166/67 H 178/73 H Blood Pressure Mean 100 108 Pulse Ox 98 98 98 Oxygen Delivery Method Nasal Cannula Nasal Cannula Oxygen Flow Rate (L/min) 4 2 Positive well nourished, well developed and obese General Appearance ED: well developed; Negative for pallor Nutritional Appearance: obese HEENT Reports dry mucous membranes HEENT Narrative: No tongue or lip swelling no oral lesions no airway edema or compromise No secondary findings in the posterior pharynx to suggest infection Mouth ED: Yes dry mucous membranes Mouth: dry mucous membranes Eyes PERRL and EOMs intact bilaterally General Eye ED: Negative for scleral icterus Neck supple and no JVD Resp normal respiratory effort and clear to auscultation bilaterally Resp Narrative: Breath sounds are diminished throughout but overall clear to auscultation without signs of respiratory distress Cardio regular rate and regular rhythm Rate: other Other Details: Radial and carotid pulses are equal and symmetric GI no masses GI Narrative: Abdomen is slightly distended with hypoactive bowel sounds. There is mild diffuse pain with palpation. There is mild increased tympany in the midepigastric to right middle abdomen No voluntary guarding or rigidity. No pulsatile mass or fluid wave. Auscultation: hypoactive bowel sounds Palpation: soft Extremity Extremity Narrative: Chronic swelling to the bilateral lower extremities that is equal and symmetric Neuro oriented x3 and CN's II-XII intact bilaterally Sensorium / Orientation: alert Psych Mood & Affect: anxious Skin Skin Narrative: Skin turgor is increased without findings of jaundice or pallor General Skin Exam: Negative for jaundice or pallor MDM MDM MDM Narrative Medical decision making narrative: Patient arrived to ER hypertensive but otherwise with stable vitals. She has had her gallbladder removed as well as her uterus. She states that her bowel movements are typically daily and it has been 2 to 3 days since she has had a BM. She also reports decreased passage of flatus. Therefore with this history and her previous surgeries there is concern for adhesions and small bowel obstruction. Secondary to this basic blood work and a CT scan with IV contrast was obtained. Labs revealed no clinically significant findings such as acute kidney injury or elevation of the lipase. CT scan showed stool within the rectum and sigmoid colon consistent with constipation as well as diffuse thickening of the large intestine. Radiologist states this is colitis but could be infectious versus inflammatory. She does not have a fever she does not have a white count and therefore I feel this is inflammatory not an infectious process. There is also question of potential mass but she does not have signs of incarceration or ischemia and therefore there is no need for an emergent colonoscopy. Patient was given magnesium citrate in the ER and she be placed on MiraLAX and Colace to help prevent recurrent constipation. After receiving Zofran her nausea/vomiting resolved. Therefore this time I do not feel there is need for admission as she is not showing signs of an infectious colitis and there are no overt findings to suggest sepsis and she does not have findings of obstruction and therefore can otherwise be treated at the [facility] History & Record Review Discussion w/independent historian: Patient Lab Data Attestation: I reviewed the patient's lab results. Labs: Laboratory Results - last 24 hr 10/24/24 01:38 WBC 9.5 RBC 6.25 H Hgb 14.7 Hct 46.8 MCV 74.9 L MCH 23.5 L MCHC 31.4 L RDW Std Deviation 53.5 H RDW Coeff of Gabbie 21.2 H Plt Count 271 MPV 10.1 Immature Gran % (Auto) 0.400 Neut % (Auto) 78.0 H Lymph % (Auto) 9.5 L Cole % (Auto) 7.9 Eos % (Auto) 2.8 Baso % (Auto) 1.4 H Absolute Neuts (auto) 7.4 Absolute Lymphs (auto) 0.90 Nucleated RBC % 0 Differential Comment SCANNED Anisocytosis 1+ Microcytosis 1+ Target Cells RARE Sodium 138 Potassium 3.2 L Chloride 100 Carbon Dioxide 24.2 Anion Gap 13 BUN 11 Creatinine 1.09 Estim Creat Clear Calc 57.11 Est GFR (MDRD) Non-Af 53 L BUN/Creatinine Ratio 10.3 Glucose 139 H Calcium 9.1 Magnesium 2.5 H Total Bilirubin 1.09 Direct Bilirubin 0.49 H AST 29 ALT 13 Alkaline Phosphatase 136 H Total Protein 7.5 Albumin 3.1 L Globulin 4.4 H Lipase 19 Radiography Diagnostic Testing: Clinical Impression(s) from Imaging Studies Abdomen/Pelvis CT 10/24/24 01:21 IMPRESSION: Diffuse colitis, correlate for infectious colitis or inflammatory bowel disease. Possible transverse colon mass. Consider colonoscopy. Reading Location: [place] [address] Discharge Plan Triage Chief Complaint: Constipation ED Provider: Lang Parekh Dx/Rx/DC Orders Clinical Impression: Constipation, Colitis, Nausea and vomiting, Hypertension, CAD (coronary artery disease), Diabetes Instructions: ED Understanding Colitis, ED Constipation (Adult), ED Vomiting (Adult) Prescriptions: New ondansetron 4 mg tablet,disintegrating 4 mg PO TID PRN (Reason: nausea and vomiting) Qty: 21 0RF docusate sodium [Colace] 100 mg capsule 100 mg PO BID 10 Days Qty: 20 0RF polyethylene glycol 3350 [Miralax] 17 gram/dose powder 17 g PO DAILY 30 Days Qty: 510 0RF No Action hydrocodone-acetaminophen 1 TABLET tablet 1 tab PO TID PRN PRN (Reason: Pain) Patient Comments: PAIN pravastatin 40 MG tablet 80 mg PO DAILY Patient Comments: CHOLESTEROL loperamide 2 MG capsule 2 mg PO Q4H PRN PRN (Reason: Loose Stools) meloxicam 7.5 MG tablet 7.5 mg PO DAILY PRN (Reason: pain) Rx Instructions: 1-2 tabs insulin asp prt-insulin aspart 100 UNITS/ML insulin pen 40 units subcut DAILYCM turmeric-turmeric root extract 1 EACH capsule 500 mg PO DAILY lisinopril 20 MG tablet 40 mg PO DAILY Qty: 1 0RF amlodipine 10 MG tablet 10 mg PO DAILY Qty: 30 0RF aspirin 81 MG tablet,delayed release (DR/EC) 81 mg PO DAILY Qty: 1 0RF lisinopril 20 MG tablet 40 mg PO DAILY Qty: 1 0RF fluoxetine 20 MG capsule 60 mg PO DAILY Qty: 1 0RF Primary Care Provider: Brandan Redding Referrals: Brandan Redding MD [Primary Care Provider] - Activity Restrictions/Additional Instructions: Your CT scan showed no sign of bowel blockage. It did note a significant amount of stool within the rectum consistent with constipation and thickening of the large intestine consistent with a colitis. As you do not have a fever or white count I feel that the colitis is inflammatory and noninfectious. Please drink the magnesium citrate that was given to you later today as this will help stimulate bowel movement. Then continue with MiraLAX and Colace to prevent any recurrence of constipation. Please note that your CT scan did show a potential mass within the intestine and therefore it is recommended you also have a colonoscopy in the future. Please talk to your family doctor about a referral to GI to schedule this and return to the ER should you have any further concerns. Print Language: Venezuelan Disposition Disposition: Home, Self Care Discharge Date/Time: 10/24/24 05:00
[2024-10-24 03:52] VITALS: BP 178/73; PULSE 72; RESP 16; TEMP 36.6; O2SAT 98
[2024-10-24] MEDS: Magnesium Citrate 300 ML 150 ML PO (04:32)
--- NOTE | 2024-10-24 04:57 | ED.RN ---
Miryam called by this RN, updated nurse Caitlin on pt being discharged and instructions, no further questions at this time.
== END 2024-10-24 05:00 | disposition home or self-care (01) ==
PROVIDERS: Emergency Provider Emergency Medicine; PCP Family Medicine; Visit Provider Emergency Medicine
DX: K59.00 Constipation, unspecified (principal); I50.22 Chronic systolic (congestive) heart failure; I13.0 Hypertensive heart and chronic kidney disease with heart failure and stage 1 through stage 4 chronic kidney disease, or unspecified chronic kidney disease; I48.0 Paroxysmal atrial fibrillation; E11.22 Type 2 diabetes mellitus with diabetic chronic kidney disease; K52.9 Noninfective gastroenteritis and colitis, unspecified; N18.9 Chronic kidney disease, unspecified; I25.10 Atherosclerotic heart disease of native coronary artery without angina pectoris; Z87.891 Personal history of nicotine dependence; F41.9 Anxiety disorder, unspecified; F32.A Depression, unspecified; K21.9 Gastro-esophageal reflux disease without esophagitis; E66.9 Obesity, unspecified
CPT/HCPCS: 74177; 80048; 80076; 83690; 83735; 85025; 96361; 96374; 96375; 99285; Q9967; J2405